=== PATIENT | female | born 2000 | race Caucasian/White ===

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

== ENCOUNTER 2022-04-07 23:21 | Emergency (ER) | payer OTHER ==
[2022-04-07 23:30] VITALS: BP 128/67
--- OUTSIDE RECORDS SUMMARY | 2022-04-07 23:48 | EXTERNAL MEDICAL SUMMARY RPT | Continuity of Care Document ---
:2000 Author Organization [facility] Address [address] [place] [address] Phone Allergies and Intolerances date description facility type (no date) Opioids - Morphine Analogues [facility] (unknown) (no date) doxycycline [facility] (unknown) Encounters No information. Functional Status No information. Immunizations No information. Medications No information. Problems No information. Procedures No information. Results/Labs test date author facility value unit interpret ation Result panel 1 (unknown) (no (unknown) (unknown) (no value) (units (unk nown) date) unknown) (unknown) (no (unknown) (unknown) [place], [place] (units ( unknown) date) [id number] unknown) (unknown) (no (unknown) (unknown) Draft (units (unkno wn) date) unknown) (unknown) (no (unknown) (unknown) [facility] (units ([facility] date[facility]) (unknown) (no (unknown) (unknown) Gynecology Visit (units (unknown) date) unknown) (unknown) (no (unknown) (unknown) rash (units (unkno wn) date) unknown) (unknown) (no (unknown) (unknown) vomitt (units (unkno wn) date) unknown) (unknown) (no (unknown) (unknown) (no value) (units (unk nown) date) unknown) (unknown) (no (unknown) (unknown) 02/24/22 (units (unkno wn) date) unknown) (unknown) (no (unknown) (unknown) [id number] (units (unkno wn) date) unknown) (unknown) (no (unknown) (unknown) Acne (-2016) (units (u nknown) date) unknown) (unknown) (no (unknown) (unknown) Age/Sex: 21 / F (units (unknown) date) Date of Service: unknown) (unknown) (no (unknown) (unknown) Allergies (units (unkn own) date) unknown) (unknown) (no (unknown) (unknown) Anesthesia (units (unk nown) date) unknown) (unknown) (no (unknown) (unknown) Attending Dr: (units ( unknown) date) Sushant Bryant unknown) (unknown) (no (unknown) (unknown) Chlamydia (units (unkn own) date) infection () unknown) (unknown) (no (unknown) (unknown) : 2000 (units (unknown) date) Acct:[id number] unknown) (unknown) (no (unknown) (unknown) Dept at (units (unkno wn) date) . unknown) (unknown) (no (unknown) (unknown) Documented By: (units (unknown) date) Sushant Bryant unknown) 02/24/22 0803 (unknown) (no (unknown) (unknown) Endometriosis (units ( unknown) date) () unknown) (unknown) (no (unknown) (unknown) Heavy menstrual (units (unknown) date) period () unknown) (unknown) (no (unknown) (unknown) Intake (units (unkno wn) date) unknown) (unknown) (no (unknown) (unknown) Intake Note: (units (u nknown) date) unknown) (unknown) (no (unknown) (unknown) Intake performed (units (unknown) date) by: unknown) Ligia Joaquin (unknown) (no (unknown) (unknown) Intake- Clincial (units (unknown) date) Staff unknown) (unknown) (no (unknown) (unknown) Irregular (units (unkn own) date) menstrual cycle unknown) () (unknown) (no (unknown) (unknown) Loc: [facility] (units (unkno wn) date) unknown) (unknown) (no (unknown) (unknown) Lymphangioma (units (u nknown) date) unknown) (unknown) (no (unknown) (unknown) Medical History (units (unknown) date) (Reviewed unknown) 12/30/21 @ 14:51 by Josefina Mathtew MD) (unknown) (no (unknown) (unknown) Opioids - (units (unkn own) date) Morphine unknown) Analogues Allergy (Intermediate, Verified 11/30/21 08:39) (unknown) (no (unknown) (unknown) Ovarian cyst (units (u nknown) date) unknown) (unknown) (no (unknown) (unknown) PFSH (units (unkno wn) date) unknown) (unknown) (no (unknown) (unknown) Painful (units (unkno wn) date) menstrual periods unknown) () (unknown) (no (unknown) (unknown) Patient: (units (unkno wn) date) Ade Matthews unknown) MR#: [id number] (unknown) (no (unknown) (unknown) Reason For Visit (units (unknown) date) unknown) (unknown) (no (unknown) (unknown) S/P ACL (units (unkno wn) date) reconstruction unknown) (06/08/21) (unknown) (no (unknown) (unknown) Signed By: (units (unk nown) date) unknown) (unknown) (no (unknown) (unknown) Smoking Status: (units (unknown) date) Never smoker unknown) (unknown) (no (unknown) (unknown) Surgical History (units (unknown) date) (Updated 12/30/21 unknown) @ 14:51 by Josefina Matthew MD) (unknown) (no (unknown) (unknown) TOA (units (unkno wn) date) (tubo-ovarian unknown) abscess) (06/28/21) (unknown) (no (unknown) (unknown) This note may (units ( unknown) date) have been all or unknown) partially generated using voice recognition (unknown) (no (unknown) (unknown) Tobacco + (units (unkn own) date) Substance Use unknown) (unknown) (no (unknown) (unknown) Tobacco Status (units (unknown) date) unknown) (unknown) (no (unknown) (unknown) Visit Reasons: (units (unknown) date) Ovarian unknown) Cyst/Pelvic Pain (unknown) (no (unknown) (unknown) doxycycline (units (un known) date) Adverse Reaction unknown) (Intermediate, Verified 11/30/21 08:39) (unknown) (no (unknown) (unknown) have occurred. (units (unknown) date) If there are any unknown) questions, please contact the Medical Records (unknown) (no (unknown) (unknown) may occur. (units (unk nown) date) Occasional unknown) wrong-word or 'sound-alike' substitutions may have (unknown) (no (unknown) (unknown) occurred due to (units (unknown) date) the inherent unknown) limitations of voice recognition software. Please (unknown) (no (unknown) (unknown) pt here for (units (un known) date) ovarian unknown) cyst/pelvic pain. had US at [facility] 12/16/21 for abnormal (unknown) (no (unknown) (unknown) read the note (units ( unknown) date) carefully and unknown) recognize, using context, where these substitutions (unknown) (no (unknown) (unknown) software. (units (unkn own) date) Although every unknown) effort is made to edit content, financial solutions advisor errors (unknown) (no (unknown) (unknown) uterine (units (unkno wn) date) bleeding. she is unknown) a previous pt of Dr Matthew Result panel 2 (unknown) (no (unknown) (unknown) (no value) (units (unk nown) date) unknown) (unknown) (no (unknown) (unknown) (no value) (units (unk nown) date) unknown) (unknown) (no (unknown) (unknown) 02/24/22 (units (unkno wn) date) unknown) (unknown) (no (unknown) (unknown) 08:15 (units (unkno wn) date) unknown) (unknown) (no (unknown) (unknown) LASHA [place] (units ( unknown) date) [id number] unknown) (unknown) (no (unknown) (unknown) Draft (units (unkno wn) date) unknown) (unknown) (no (unknown) (unknown) [facility]) (unknown) (no (unknown) (unknown) Gynecology Visit (units (unknown) date) unknown) (unknown) (no (unknown) (unknown) rash (units (unkno wn) date) unknown) (unknown) (no (unknown) (unknown) vomitt (units (unkno wn) date) unknown) (unknown) (no (unknown) (unknown) (no value) (units (unk nown) date) unknown) (unknown) (no (unknown) (unknown) 02/24/22 (units (unkno wn) date) unknown) (unknown) (no (unknown) (unknown) [id number] (units (unkno wn) date) unknown) (unknown) (no (unknown) (unknown) Acne (-2016) (units (u nknown) date) unknown) (unknown) (no (unknown) (unknown) Age/Sex: 21 / F (units (unknown) date) Date of Service: unknown) (unknown) (no (unknown) (unknown) Allergies (units (unkn own) date) unknown) (unknown) (no (unknown) (unknown) Anesthesia (units (unk nown) date) unknown) (unknown) (no (unknown) (unknown) Attending Dr: (units ( unknown) date) Sushant Bryant unknown) (unknown) (no (unknown) (unknown) BMI 26.6 (units (unkno wn) date) unknown) (unknown) (no (unknown) (unknown) BP 98/60 (units (unkno wn) date) unknown) (unknown) (no (unknown) (unknown) Blood Pressure (units (unknown) date) Location Lt unknown) brachial (unknown) (no (unknown) (unknown) Chlamydia (units (unkn own) date) infection () unknown) (unknown) (no (unknown) (unknown) : 2000 (units (unknown) date) Acct:[id number] unknown) (unknown) (no (unknown) (unknown) Dept at (units (unkno wn) date) . unknown) (unknown) (no (unknown) (unknown) Documented By: (units (unknown) date) Sushant Bryant unknownFlip MOORE 02/24/22 0803 (unknown) (no (unknown) (unknown) Endometriosis (units ( unknown) date) () unknown) (unknown) (no (unknown) (unknown) Heavy menstrual (units (unknown) date) period (-2019) unknown) (unknown) (no (unknown) (unknown) Height 5 ft 3.5 (units (unknown) date) in unknown) (unknown) (no (unknown) (unknown) Intake (units (unkno wn) date) unknown) (unknown) (no (unknown) (unknown) Intake Note: (units (u nknown) date) unknown) (unknown) (no (unknown) (unknown) Intake performed (units (unknown) date) by: unknown) Ligia Joaquin (unknown) (no (unknown) (unknown) Intake- Clincial (units (unknown) date) Staff unknown) (unknown) (no (unknown) (unknown) Irregular (units (unkn own) date) menstrual cycle unknown) () (unknown) (no (unknown) (unknown) Last Menstural (units (unknown) date) Cycle + Details unknown) (unknown) (no (unknown) (unknown) Loc: [facility] (units (unkno wn) date) unknown) (unknown) (no (unknown) (unknown) Lymphangioma (units (u nknown) date) unknown) (unknown) (no (unknown) (unknown) Medical History (units (unknown) date) (Reviewed unknown) 12/30/21 @ 14:51 by Josefina Matthew MD) (unknown) (no (unknown) (unknown) Medications (units (un known) date) unknown) (unknown) (no (unknown) (unknown) Opioids - (units (unkn own) date) Morphine unknown) Analogues Allergy (Intermediate, Verified 02/24/22 08:15) (unknown) (no (unknown) (unknown) Other Menstrual (units (unknown) date) Period: Other unknown) (unknown) (no (unknown) (unknown) Ovarian cyst (units (u nknown) date) unknown) (unknown) (no (unknown) (unknown) PFSH (units (unkno wn) date) unknown) (unknown) (no (unknown) (unknown) Painful (units (unkno wn) date) menstrual periods unknown) () (unknown) (no (unknown) (unknown) Patient: (units (unkno wn) date) Ade Matthews unknown) MR#: [id number] (unknown) (no (unknown) (unknown) Position Sitting (units (unknown) date) unknown) (unknown) (no (unknown) (unknown) Reason For Visit (units (unknown) date) unknown) (unknown) (no (unknown) (unknown) S/P ACL (units (unkno wn) date) reconstruction unknown) (-06/08/21) (unknown) (no (unknown) (unknown) Signed By: (units (unk nown) date) unknown) (unknown) (no (unknown) (unknown) Smoking Status: (units (unknown) date) Never smoker unknown) (unknown) (no (unknown) (unknown) Surgical History (units (unknown) date) (Updated 12/30/21 unknown) @ 14:51 by Josefina Matthew MD) (unknown) (no (unknown) (unknown) TOA (units (unkno wn) date) (tubo-ovarian unknown) abscess) (-06/28/21) (unknown) (no (unknown) (unknown) This note may (units ( unknown) date) have been all or unknown) partially generated using voice recognition (unknown) (no (unknown) (unknown) Tobacco + (units (unkn own) date) Substance Use unknown) (unknown) (no (unknown) (unknown) Tobacco Status (units (unknown) date) unknown) (unknown) (no (unknown) (unknown) Visit Reasons: (units (unknown) date) Ovarian unknown) Cyst/Pelvic Pain (unknown) (no (unknown) (unknown) Vitals (units (unkno wn) date) unknown) (unknown) (no (unknown) (unknown) Weight 153 lb (units ( unknown) date) unknown) (unknown) (no (unknown) (unknown) doxycycline (units (un known) date) Adverse Reaction unknown) (Intermediate, Verified 02/24/22 08:15) (unknown) (no (unknown) (unknown) had US and CT (units ( unknown) date) scan. unknown) (unknown) (no (unknown) (unknown) have occurred. (units (unknown) date) If there are any unknown) questions, please contact the Medical Records (unknown) (no (unknown) (unknown) may occur. (units (unk nown) date) Occasional unknown) wrong-word or 'sound-alike' substitutions may have (unknown) (no (unknown) (unknown) occurred due to (units (unknown) date) the inherent unknown) limitations of voice recognition software. Please (unknown) (no (unknown) (unknown) promethazine 25 (units (unknown) date) mg tablet 25 mg unknown) PO Q6H PRN 11/30/21 [History Confirmed 02/24/22] (unknown) (no (unknown) (unknown) pt here for (units (unk nown) date) ovarian unknown) cyst/pelvic pain. was seen in ER at [facility] on Monday and (unknown) (no (unknown) (unknown) read the note (units ( unknown) date) carefully and unknown) recognize, using context, where these substitutions (unknown) (no (unknown) (unknown) software. (units (unkn own) date) Although every unknown) effort is made to edit content, financial solutions advisor errors Result panel 3 (unknown) (no (unknown) (unknown) (no value) (units (unk nown) date) unknown) (unknown) (no (unknown) (unknown) (no value) (units (unk nown) date) unknown) (unknown) (no (unknown) (unknown) 02/24/22 (units (unkno wn) date) unknown) (unknown) (no (unknown) (unknown) 08:15 (units (unkno wn) date) unknown) (unknown) (no (unknown) (unknown) [place] (units ( unknown) date) [id number] unknown) (unknown) (no (unknown) (unknown) Draft (units (unkno wn) date) unknown) (unknown) (no (unknown) (unknown) [facility] ([facility] ([facility]) (unknown) (no (unknown) (unknown) Gynecology Visit (units (unknown) date) unknown) (unknown) (no (unknown) (unknown) rash (units (unkno wn) date) unknown) (unknown) (no (unknown) (unknown) vomitt (units (unkno wn) date) unknown) (unknown) (no (unknown) (unknown) (no value) (units (unk nown) date) unknown) (unknown) (no (unknown) (unknown) 02/24/22 (units (unkno wn) date) unknown) (unknown) (no (unknown) (unknown) [id number] (units (unkno wn) date) unknown) (unknown) (no (unknown) (unknown) Acne (-2016) (units (u nknown) date) unknown) (unknown) (no (unknown) (unknown) Age/Sex: 21 / F (units (unknown) date) Date of Service: unknown) (unknown) (no (unknown) (unknown) Allergies (units (unkn own) date) unknown) (unknown) (no (unknown) (unknown) Anesthesia (units (unk nown) date) unknown) (unknown) (no (unknown) (unknown) Attending Dr: (units ( unknown) date) Sushant Bryant MD unknown) (unknown) (no (unknown) (unknown) BMI 26.6 (units (unkno wn) date) unknown) (unknown) (no (unknown) (unknown) BP 98/60 (units (unkno wn) date) unknown) (unknown) (no (unknown) (unknown) Blood Pressure (units (unknown) date) Location Lt unknown) brachial (unknown) (no (unknown) (unknown) Chief Complaint (units (unknown) date) unknown) (unknown) (no (unknown) (unknown) Chief Complaint: (units (unknown) date) Right lower unknown) quadrant pain (unknown) (no (unknown) (unknown) Chlamydia (units (unkn own) date) infection () unknown) (unknown) (no (unknown) (unknown) : 2000 (units (unknown) date) Acct:[id number] unknown) (unknown) (no (unknown) (unknown) Dept at (units (unkno wn) date) . unknown) (unknown) (no (unknown) (unknown) Details: (units (unkno wn) date) unknown) (unknown) (no (unknown) (unknown) Documented By: (units (unknown) date) Sushant Bryant MD unknown) 02/24/22 0803 (unknown) (no (unknown) (unknown) Endometriosis (units ( unknown) date) () unknown) (unknown) (no (unknown) (unknown) Ade is a (units (unk nown) date) 21-year-old unknown) nulligravida, LMP in November 2021 who presents with an 8 (unknown) (no (unknown) (unknown) HPI (units (unkno wn) date) unknown) (unknown) (no (unknown) (unknown) Heavy menstrual (units (unknown) date) period () unknown) (unknown) (no (unknown) (unknown) Height 5 ft 3.5 (units (unknown) date) in unknown) (unknown) (no (unknown) (unknown) Hospital on (units (un known) date) 02/17/2022 at unknown) which time she underwent abdominal/pelvic CT and (unknown) (no (unknown) (unknown) Intake (units (unkno wn) date) unknown) (unknown) (no (unknown) (unknown) Intake Note: (units (u nknown) date) unknown) (unknown) (no (unknown) (unknown) Intake performed (units (unknown) date) by: Ligia Joaquin unknown) (unknown) (no (unknown) (unknown) Intake- Clincial (units (unknown) date) Staff unknown) (unknown) (no (unknown) (unknown) Irregular (units (unkn own) date) menstrual cycle unknown) () (unknown) (no (unknown) (unknown) Last Menstural (units (unknown) date) Cycle + Details unknown) (unknown) (no (unknown) (unknown) Loc: [facility] (units (unkno wn) date) unknown) (unknown) (no (unknown) (unknown) Lymphangioma (units (u nknown) date) unknown) (unknown) (no (unknown) (unknown) Medical History (units (unknown) date) (Reviewed 12/30/21 unknown) @ 14:51 by Josefina Matthew MD) (unknown) (no (unknown) (unknown) Medications (units (un known) date) unknown) (unknown) (no (unknown) (unknown) Opioids - (units (unkn own) date) Morphine Analogues unknown) Allergy (Intermediate, Verified 02/24/22 08:15) (unknown) (no (unknown) (unknown) Other Menstrual (units (unknown) date) Period: Other unknown) (unknown) (no (unknown) (unknown) Ovarian cyst (units (u nknown) date) unknown) (unknown) (no (unknown) (unknown) PFSH (units (unkno wn) date) unknown) (unknown) (no (unknown) (unknown) Painful menstrual (units (unknown) date) periods () unknown) (unknown) (no (unknown) (unknown) Patient: (units (unkno wn) date) Flash,Ade unknown) MR#: [id number] (unknown) (no (unknown) (unknown) Position Sitting (units (unknown) date) unknown) (unknown) (no (unknown) (unknown) Reason For Visit (units (unknown) date) unknown) (unknown) (no (unknown) (unknown) S/P ACL (units (unkno wn) date) reconstruction unknown) (06/08/21) (unknown) (no (unknown) (unknown) Signed By: (units (unk nown) date) unknown) (unknown) (no (unknown) (unknown) Smoking Status: (units (unknown) date) Never smoker unknown) (unknown) (no (unknown) (unknown) Surgical History (units (unknown) date) (Updated 12/30/21 unknown) @ 14:51 by Josefina Matthew MD) (unknown) (no (unknown) (unknown) TOA (tubo-ovarian (units (unknown) date) abscess) unknown) (06/28/21) (unknown) (no (unknown) (unknown) This note may (units ( unknown) date) have been all or unknown) partially generated using voice recognition (unknown) (no (unknown) (unknown) Tobacco + (units (unkn own) date) Substance Use unknown) (unknown) (no (unknown) (unknown) Tobacco Status (units (unknown) date) unknown) (unknown) (no (unknown) (unknown) Visit Reasons: (units (unknown) date) Ovarian unknown) Cyst/Pelvic Pain (unknown) (no (unknown) (unknown) Vitals (units (unkno wn) date) unknown) (unknown) (no (unknown) (unknown) Weight 153 lb (units ( unknown) date) unknown) (unknown) (no (unknown) (unknown) abscess due to (units (unknown) date) chlamydia treated unknown) as an inpatient at [facility] (unknown) (no (unknown) (unknown) back in June (units (unknown) date) 2020. No records unknown) are available for review of that (unknown) (no (unknown) (unknown) cycles since the (units (unknown) date) TOA or as she had unknown) regular predictable periods up until that (unknown) (no (unknown) (unknown) doxycycline (units (un known) date) Adverse Reaction unknown) (Intermediate, Verified 02/24/22 08:15) (unknown) (no (unknown) (unknown) had US and CT (units ( unknown) date) scan. unknown) (unknown) (no (unknown) (unknown) have occurred. If (units (unknown) date) there are any unknown) questions, please contact the Medical Records (unknown) (no (unknown) (unknown) hemorrhagic cyst (units (unknown) date) within the right unknown) ovary. (unknown) (no (unknown) (unknown) hospitalization (units (unknown) date) but apparently she unknown) was treated with IV antibiotics and (unknown) (no (unknown) (unknown) may occur. (units (unk nown) date) Occasional unknown) wrong-word or 'sound-alike' substitutions may have (unknown) (no (unknown) (unknown) month history of (units (unknown) date) right lower unknown) quadrant pain following right-sided tubo-ovarian (unknown) (no (unknown) (unknown) occurred due to (units (unknown) date) the inherent unknown) limitations of voice recognition software. Please (unknown) (no (unknown) (unknown) pelvic ultrasound (units (unknown) date) which were largely unknown) unremarkable with the exception of a 3 cm (unknown) (no (unknown) (unknown) percutaneous (units (u nknown) date) drainage of the unknown) abscess. Since that time she is had persistent (unknown) (no (unknown) (unknown) promethazine 25 mg (units (unknown) date) tablet 25 mg PO unknown) Q6H PRN 11/30/21 [History Confirmed 02/24/22] (unknown) (no (unknown) (unknown) pt here for (units (unk nown) date) ovarian unknown) cyst/pelvic pain. was seen in ER at [facility] on Monday and (unknown) (no (unknown) (unknown) read the note (units ( unknown) date) carefully and unknown) recognize, using context, where these substitutions (unknown) (no (unknown) (unknown) right lower (units (un known) date) quadrant pain unknown) which is noncyclic and has had only very irregular (unknown) (no (unknown) (unknown) software. (units (unkn own) date) Although every unknown) effort is made to edit content, financial solutions advisor errors (unknown) (no (unknown) (unknown) time. She (units (unkn own) date) presents today in unknown) follow-up from an ER visit at [facility] Result panel 4 (unknown) (no (unknown) (unknown) (no value) (units (unk nown) date) unknown) (unknown) (no (unknown) (unknown) (no value) (units (unk nown) date) unknown) (unknown) (no (unknown) (unknown) 02/24/22 (units (unkno wn) date) unknown) (unknown) (no (unknown) (unknown) 08:15 (units (unkno wn) date) unknown) (unknown) (no (unknown) (unknown) [place], [place] (units ( unknown) date) [id number] unknown) (unknown) (no (unknown) (unknown) Draft (units (unkno wn) date) unknown) (unknown) (no (unknown) (unknown) [facility] (units (unknown) date[facility] unknown) (unknown) (no (unknown) (unknown) Gynecology Visit (units (unknown) date) unknown) (unknown) (no (unknown) (unknown) rash (units (unkno wn) date) unknown) (unknown) (no (unknown) (unknown) vomitt (units (unkno wn) date) unknown) (unknown) (no (unknown) (unknown) (no value) (units (unk nown) date) unknown) (unknown) (no (unknown) (unknown) 02/24/22 (units (unkno wn) date) unknown) (unknown) (no (unknown) (unknown) [id number] (units (unkno wn) date) unknown) (unknown) (no (unknown) (unknown) Acne (-2016) (units (u nknown) date) unknown) (unknown) (no (unknown) (unknown) Age/Sex: 21 / F (units (unknown) date) Date of Service: unknown) (unknown) (no (unknown) (unknown) Allergies (units (unkn own) date) unknown) (unknown) (no (unknown) (unknown) Anesthesia (units (unk nown) date) unknown) (unknown) (no (unknown) (unknown) Attending Dr: (units ( unknown) date) Sushant Bryant MD unknown) (unknown) (no (unknown) (unknown) BMI 26.6 (units (unkno wn) date) unknown) (unknown) (no (unknown) (unknown) BP 98/60 (units (unkno wn) date) unknown) (unknown) (no (unknown) (unknown) Blood Pressure (units (unknown) date) Location Lt unknown) brachial (unknown) (no (unknown) (unknown) Chief Complaint (units (unknown) date) unknown) (unknown) (no (unknown) (unknown) Chief Complaint: (units (unknown) date) Right lower unknown) quadrant pain (unknown) (no (unknown) (unknown) Chlamydia (units (unkn own) date) infection () unknown) (unknown) (no (unknown) (unknown) : 2000 (units (unknown) date) Acct:[id number] unknown) (unknown) (no (unknown) (unknown) Dept at (units (unkno wn) date) . unknown) (unknown) (no (unknown) (unknown) Details: (units (unkno wn) date) unknown) (unknown) (no (unknown) (unknown) Documented By: (units (unknown) date) Sushant Bryant MD unknown) 02/24/22 0803 (unknown) (no (unknown) (unknown) ER visit at (units (un known) date) [facility] unknown) [facility] on 02/17/2022 at which time she underwent (unknown) (no (unknown) (unknown) Endometriosis (units ( unknown) date) () unknown) (unknown) (no (unknown) (unknown) Ade is a (units (unk nown) date) 21-year-old unknown) nulligravida, LMP in November 2021 who presents with an 8 (unknown) (no (unknown) (unknown) HPI (units (unkno wn) date) unknown) (unknown) (no (unknown) (unknown) Heavy menstrual (units (unknown) date) period () unknown) (unknown) (no (unknown) (unknown) Height 5 ft 3.5 (units (unknown) date) in unknown) (unknown) (no (unknown) (unknown) Intake (units (unkno wn) date) unknown) (unknown) (no (unknown) (unknown) Intake Note: (units (u nknown) date) unknown) (unknown) (no (unknown) (unknown) Intake performed (units (unknown) date) by: Ligia Joaquin unknown) (unknown) (no (unknown) (unknown) Intake- Clincial (units (unknown) date) Staff unknown) (unknown) (no (unknown) (unknown) Irregular (units (unkn own) date) menstrual cycle unknown) () (unknown) (no (unknown) (unknown) Last Menstural (units (unknown) date) Cycle + Details unknown) (unknown) (no (unknown) (unknown) Loc: [facility] (units (unkno wn) date) unknown) (unknown) (no (unknown) (unknown) Lymphangioma (units (u nknown) date) unknown) (unknown) (no (unknown) (unknown) Medical History (units (unknown) date) (Reviewed 12/30/21 unknown) @ 14:51 by Josefina Matthew MD) (unknown) (no (unknown) (unknown) Medications (units (un known) date) unknown) (unknown) (no (unknown) (unknown) Opioids - (units (unkn own) date) Morphine Analogues unknown) Allergy (Intermediate, Verified 02/24/22 08:15) (unknown) (no (unknown) (unknown) Other Menstrual (units (unknown) date) Period: Other unknown) (unknown) (no (unknown) (unknown) Ovarian cyst (units (u nknown) date) unknown) (unknown) (no (unknown) (unknown) PFSH (units (unkno wn) date) unknown) (unknown) (no (unknown) (unknown) Painful menstrual (units (unknown) date) periods () unknown) (unknown) (no (unknown) (unknown) Patient: (units (unkno wn) date) Ade aMtthews unknown) MR#: [id number] (unknown) (no (unknown) (unknown) Position Sitting (units (unknown) date) unknown) (unknown) (no (unknown) (unknown) Reason For Visit (units (unknown) date) unknown) (unknown) (no (unknown) (unknown) S/P ACL (units (unkno wn) date) reconstruction unknown) (-06/08/21) (unknown) (no (unknown) (unknown) Signed By: (units (unk nown) date) unknown) (unknown) (no (unknown) (unknown) Smoking Status: (units (unknown) date) Never smoker unknown) (unknown) (no (unknown) (unknown) Surgical History (units (unknown) date) (Updated 12/30/21 unknown) @ 14:51 by Josefina Matthew MD) (unknown) (no (unknown) (unknown) TOA (tubo-ovarian (units (unknown) date) abscess) unknown) (-06/28/21) (unknown) (no (unknown) (unknown) This note may (units ( unknown) date) have been all or unknown) partially generated using voice recognition (unknown) (no (unknown) (unknown) Tobacco + (units (unkn own) date) Substance Use unknown) (unknown) (no (unknown) (unknown) Tobacco Status (units (unknown) date) unknown) (unknown) (no (unknown) (unknown) Visit Reasons: (units (unknown) date) Ovarian unknown) Cyst/Pelvic Pain (unknown) (no (unknown) (unknown) Vitals (units (unkno wn) date) unknown) (unknown) (no (unknown) (unknown) Weight 153 lb (units ( unknown) date) unknown) (unknown) (no (unknown) (unknown) abdominal/pelvic (units (unknown) date) CT and pelvic unknown) ultrasound which were largely unremarkable with (unknown) (no (unknown) (unknown) abscess due to (units (unknown) date) chlamydia treated unknown) as an inpatient at [facility] (unknown) (no (unknown) (unknown) and therefore (units ( unknown) date) discontinue the unknown) oral antibiotics. As a result she only had (unknown) (no (unknown) (unknown) back in June (units (unknown) date) 2020. No records unknown) are available for review of that (unknown) (no (unknown) (unknown) doxycycline (units (un known) date) Adverse Reaction unknown) (Intermediate, Verified 02/24/22 08:15) (unknown) (no (unknown) (unknown) following IV (units (u nknown) date) antibiotics but unknown) apparently had an adverse reaction to Vibramycin (unknown) (no (unknown) (unknown) had US and CT (units ( unknown) date) scan. unknown) (unknown) (no (unknown) (unknown) has had only very (units (unknown) date) irregular cycles unknown) since the TOA or as she had regular (unknown) (no (unknown) (unknown) have occurred. If (units (unknown) date) there are any unknown) questions, please contact the Medical Records (unknown) (no (unknown) (unknown) hospitalization (units (unknown) date) but apparently she unknown) was treated with IV antibiotics and (unknown) (no (unknown) (unknown) intravenous (units (un known) date) antibiotic therapy unknown) and no follow-up oral antibiotic therapy. Since (unknown) (no (unknown) (unknown) may occur. (units (unk nown) date) Occasional unknown) wrong-word or 'sound-alike' substitutions may have (unknown) (no (unknown) (unknown) month history of (units (unknown) date) right lower unknown) quadrant pain following right-sided tubo-ovarian (unknown) (no (unknown) (unknown) occurred due to (units (unknown) date) the inherent unknown) limitations of voice recognition software. Please (unknown) (no (unknown) (unknown) percutaneous (units (u nknown) date) drainage of the unknown) abscess. She was placed on oral antibiotics (unknown) (no (unknown) (unknown) predictable (units (unk nown) date) periods up until unknown) that time. She presents today in follow-up from an (unknown) (no (unknown) (unknown) promethazine 25 mg (units (unknown) date) tablet 25 mg PO unknown) Q6H PRN 11/30/21 [History Confirmed 02/24/22] (unknown) (no (unknown) (unknown) pt here for (units (unk nown) date) ovarian unknown) cyst/pelvic pain. was seen in ER at [facility] on Monday and (unknown) (no (unknown) (unknown) read the note (units ( unknown) date) carefully and unknown) recognize, using context, where these substitutions (unknown) (no (unknown) (unknown) software. (units (unkn own) date) Although every unknown) effort is made to edit content, financial solutions advisor errors (unknown) (no (unknown) (unknown) that time she is (units (unknown) date) had persistent unknown) right lower quadrant pain which is noncyclic and (unknown) (no (unknown) (unknown) the exception of (units (unknown) date) a 3 cm hemorrhagic unknown) cyst within the right ovary. Result panel 5 (unknown) (no (unknown) (unknown) (no value) (units (unk nown) date) unknown) (unknown) (no (unknown) (unknown) Medications: (units (u nknown) date) unknown) (unknown) (no (unknown) (unknown) Status: Acute (units ( unknown) date) unknown) (unknown) (no (unknown) (unknown) (no value) (units (unk nown) date) unknown) (unknown) (no (unknown) (unknown) 02/24/22 (units (unkno wn) date) unknown) (unknown) (no (unknown) (unknown) 08:15 (units (unkno wn) date) unknown) (unknown) (no (unknown) (unknown) [place] [address] (unit s (unknown) date) unknown) (unknown) (no (unknown) (unknown) Draft (units (unkno wn) date) unknown) (unknown) (no (unknown) (unknown) [facility] unknown) (unknown) (no (unknown) (unknown) Gynecology Visit (units (unknown) date) unknown) (unknown) (no (unknown) (unknown) rash (units (unkno wn) date) unknown) (unknown) (no (unknown) (unknown) vomitt (units (unkno wn) date) unknown) (unknown) (no (unknown) (unknown) (no value) (units (unk nown) date) unknown) (unknown) (no (unknown) (unknown) (1) Chronic right (units (unknown) date) lower quadrant pain: unknown) (unknown) (no (unknown) (unknown) (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) (unknown) (no (unknown) (unknown) (3) Irregular (units ( unknown) date) menstrual cycle: unknown) (unknown) (no (unknown) (unknown) 02/24/22 (units (unkno wn) date) unknown) (unknown) (no (unknown) (unknown) [id number] (units (unkno wn) date) unknown) (unknown) (no (unknown) (unknown) Acne (-2016) (units (u nknown) date) unknown) (unknown) (no (unknown) (unknown) Affect: normal (units (unknown) date) affect unknown) (unknown) (no (unknown) (unknown) Age/Sex: 21 / F (units (unknown) date) Date of Service: unknown) (unknown) (no (unknown) (unknown) Allergies (units (unkn own) date) unknown) (unknown) (no (unknown) (unknown) Anesthesia (units (unk nown) date) unknown) (unknown) (no (unknown) (unknown) Appearance: grossly (unit s (unknown) date) normal unknown) (unknown) (no (unknown) (unknown) Assessment + Plan (units (unknown) date) unknown) (unknown) (no (unknown) (unknown) Attending Dr: (units ( unknown) date) Sushant Bryant MD unknown) (unknown) (no (unknown) (unknown) Attitude: (units (unkn own) date) cooperative unknown) (unknown) (no (unknown) (unknown) BMI 26.6 (units (unkno wn) date) unknown) (unknown) (no (unknown) (unknown) BP 98/60 (units (unkno wn) date) unknown) (unknown) (no (unknown) (unknown) Bimanual Exam- (units (unknown) date) Adnexa, other: no unknown) masses, normal, tender (Marked, right sided), (unknown) (no (unknown) (unknown) Bimanual Exam- (units (unknown) date) Vagina + Uterus: unknown) uterine size normal, uterine mobility normal, (unknown) (no (unknown) (unknown) Blood Pressure (units (unknown) date) Location Lt brachial unknown) (unknown) (no (unknown) (unknown) Chief Complaint (units (unknown) date) unknown) (unknown) (no (unknown) (unknown) Chief Complaint: (units (unknown) date) Right lower quadrant unknown) pain (unknown) (no (unknown) (unknown) Chlamydia infection (unit s (unknown) date) () unknown) (unknown) (no (unknown) (unknown) Confirmed 02/24/22] (unit s (unknown) date) unknown) (unknown) (no (unknown) (unknown) Conjunctivae: (units ( unknown) date) conjunctivae normal unknown) (unknown) (no (unknown) (unknown) Const (units (unkno wn) date) unknown) (unknown) (no (unknown) (unknown) : 2000 (units (unknown) date) Acct:[id number] unknown) (unknown) (no (unknown) (unknown) Dept at (units (unkno wn) date) . unknown) (unknown) (no (unknown) (unknown) Details: (units (unkno wn) date) unknown) (unknown) (no (unknown) (unknown) Documented By: (units (unknown) date) Sushant Bryant MD unknown) 02/24/22 0803 (unknown) (no (unknown) (unknown) EOM: EOM intact (units (unknown) date) bilaterally unknown) (unknown) (no (unknown) (unknown) ER visit at [facility] (unit s (unknown) date) [facility] on unknown) 02/17/2022 at which time she underwent (unknown) (no (unknown) (unknown) Ears: hearing (units ( unknown) date) grossly normal unknown) bilaterally (unknown) (no (unknown) (unknown) Effort + (units (unkno wn) date) Inspection: normal unknown) respiratory effort and able to speak in complete (unknown) (no (unknown) (unknown) Endometriosis (units ( unknown) date) () unknown) (unknown) (no (unknown) (unknown) Exam (units (unkno wn) date) unknown) (unknown) (no (unknown) (unknown) External Female (units (unknown) date) Exam: normal unknown) external appearance and normal appearance of the (unknown) (no (unknown) (unknown) Eyes (units (unkno wn) date) unknown) (unknown) (no (unknown) (unknown) Face and sinus: (units (unknown) date) face symmetric unknown) (unknown) (no (unknown) (unknown) GI (units (unkno wn) date) unknown) (unknown) (no (unknown) (unknown) (units (unkno wn) date) unknown) (unknown) (no (unknown) (unknown) General: appearance (unit s (unknown) date) normal, both eyes unknown) and all related structures (unknown) (no (unknown) (unknown) General: (units (unkno wn) date) cooperative, unknown) comfortable and no acute distress (unknown) (no (unknown) (unknown) General: deferred (units (unknown) date) unknown) (unknown) (no (unknown) (unknown) Ade is a (units (unk nown) date) 21-year-old unknown) nulligravida, LMP in November 2021 who presents with an 8 (unknown) (no (unknown) (unknown) HENMT (units (unkno wn) date) unknown) (unknown) (no (unknown) (unknown) HPI (units (unkno wn) date) unknown) (unknown) (no (unknown) (unknown) Head: normal to (units (unknown) date) inspection, unknown) normocephalic and atraumatic (unknown) (no (unknown) (unknown) Heavy menstrual (units (unknown) date) period () unknown) (unknown) (no (unknown) (unknown) Height 5 ft 3.5 in (unit s (unknown) date) unknown) (unknown) (no (unknown) (unknown) Inspection: normal (units (unknown) date) to inspection unknown) (unknown) (no (unknown) (unknown) Intake (units (unkno wn) date) unknown) (unknown) (no (unknown) (unknown) Intake Note: (units (u nknown) date) unknown) (unknown) (no (unknown) (unknown) Intake performed (units (unknown) date) by: Ligia Joaquin unknown) (unknown) (no (unknown) (unknown) Intake- Clincial (units (unknown) date) Staff unknown) (unknown) (no (unknown) (unknown) Irregular menstrual (unit s (unknown) date) cycle () unknown) (unknown) (no (unknown) (unknown) Judgment: judgment (units (unknown) date) good unknown) (unknown) (no (unknown) (unknown) Last Menstural (units (unknown) date) Cycle + Details unknown) (unknown) (no (unknown) (unknown) Loc: [facility] (units (unkno wn) date) unknown) (unknown) (no (unknown) (unknown) Lymphangioma (units (u nknown) date) unknown) (unknown) (no (unknown) (unknown) Medical History (units (unknown) date) (Updated 02/24/22 @ unknown) 09:05 by Sushant Bryant MD) (unknown) (no (unknown) (unknown) Medications (units (un known) date) unknown) (unknown) (no (unknown) (unknown) Mental Status: (units (unknown) date) mental status unknown) grossly normal (unknown) (no (unknown) (unknown) Mood: congruent (units (unknown) date) mood unknown) (unknown) (no (unknown) (unknown) Neck (units (unkno wn) date) unknown) (unknown) (no (unknown) (unknown) Neck: normal visual (unit s (unknown) date) inspection unknown) (unknown) (no (unknown) (unknown) New (units (unkno wn) date) unknown) (unknown) (no (unknown) (unknown) No cul-de-sac (units ( unknown) date) fullness and No unknown) cul-de-sac tenderness (unknown) (no (unknown) (unknown) Nutritional (units (un known) date) Appearance: average unknown) body habitus (unknown) (no (unknown) (unknown) Opioids - Morphine (units (unknown) date) Analogues Allergy unknown) (Intermediate, Verified 02/24/22 08:15) (unknown) (no (unknown) (unknown) Orientation: alert (units (unknown) date) and oriented x3 unknown) (unknown) (no (unknown) (unknown) Other Menstrual (units (unknown) date) Period: Other unknown) (unknown) (no (unknown) (unknown) Ovarian cyst (units (u nknown) date) unknown) (unknown) (no (unknown) (unknown) PFSH (units (unkno wn) date) unknown) (unknown) (no (unknown) (unknown) Painful menstrual (units (unknown) date) periods (-2020) unknown) (unknown) (no (unknown) (unknown) Palpation: soft, no (unit s (unknown) date) hepatosplenomegaly unknown) and tender (Moderate direct tenderness) (unknown) (no (unknown) (unknown) Patient: (units (unkno wn) date) [place],Ade MR#: unknown) [id number] (unknown) (no (unknown) (unknown) Pelvic Support: (units (unknown) date) normal unknown) (unknown) (no (unknown) (unknown) Position Sitting (units (unknown) date) unknown) (unknown) (no (unknown) (unknown) Problem-specific (units (unknown) date) ROS positives unknown) included with the HPI (unknown) (no (unknown) (unknown) Psych (units (unkno wn) date) unknown) (unknown) (no (unknown) (unknown) ROS (units (unkno wn) date) unknown) (unknown) (no (unknown) (unknown) ROS Narrative (units ( unknown) date) unknown) (unknown) (no (unknown) (unknown) ROS Narrative: (units (unknown) date) unknown) (unknown) (no (unknown) (unknown) Reason For Visit (units (unknown) date) unknown) (unknown) (no (unknown) (unknown) Recto-Vaginal: no (units (unknown) date) cul-de-sac fullness unknown) and no cul-de-sac tenderness (unknown) (no (unknown) (unknown) Resp (units (unkno wn) date) unknown) (unknown) (no (unknown) (unknown) S/P ACL (units (o wn) date) reconstruction unknown) (-06/08/21) (unknown) (no (unknown) (unknown) Sclera: sclerae (units (unknown) date) normal unknown) (unknown) (no (unknown) (unknown) Signed By: (units (n) date) unknown) (unknown) (no (unknown) (unknown) Smoking Status: (units (unknown) date) Never smoker unknown) (unknown) (no (unknown) (unknown) Speculum Exam - (units (unknown) date) Cervix: normal unknown) appearance of the cervix and tender (unknown) (no (unknown) (unknown) Speculum Exam - (units (unknown) date) Vagina: normal unknown) appearance of the vagina and abnormal vaginal (unknown) (no (unknown) (unknown) Speech and (units (unk nown) date) Movement: speech and unknown) movement normal (unknown) (no (unknown) (unknown) Surgical History (units (unknown) date) (Updated 12/30/21 @ unknown) 14:51 by Josefina Matthew MD) (unknown) (no (unknown) (unknown) TOA (tubo-ovarian (units (unknown) date) abscess) (-06/28/21) unknown) (unknown) (no (unknown) (unknown) This note may have (units (unknown) date) been all or unknown) partially generated using voice recognition (unknown) (no (unknown) (unknown) Thought Content: (units (unknown) date) normal unknown) (unknown) (no (unknown) (unknown) Thought Process: (units (unknown) date) normal unknown) (unknown) (no (unknown) (unknown) Tobacco + Substance (unit s (unknown) date) Use unknown) (unknown) (no (unknown) (unknown) Tobacco Status (units (unknown) date) unknown) (unknown) (no (unknown) (unknown) Urethra: normal (units (unknown) date) appearance of the unknown) urethra (unknown) (no (unknown) (unknown) Visit Reasons: (units (unknown) date) Ovarian Cyst/Pelvic unknown) Pain (unknown) (no (unknown) (unknown) Vitals (units (unkno wn) date) unknown) (unknown) (no (unknown) (unknown) Weight 153 lb (units ( unknown) date) unknown) (unknown) (no (unknown) (unknown) abdominal/pelvic CT (unit s (unknown) date) and pelvic unknown) ultrasound which were largely unremarkable with (unknown) (no (unknown) (unknown) abscess due to (units (unknown) date) chlamydia treated as unknown) an inpatient at [facility] (unknown) (no (unknown) (unknown) and therefore (units ( unknown) date) discontinue the oral unknown) antibiotics. As a result she only had (unknown) (no (unknown) (unknown) back in June (units (unknown) date) 2020. No records are unknown) available for review of that (unknown) (no (unknown) (unknown) discharge (C/W BV) (units (unknown) date) white unknown) (unknown) (no (unknown) (unknown) doxycycline Adverse (unit s (unknown) date) Reaction unknown) (Intermediate, Verified 02/24/22 08:15) (unknown) (no (unknown) (unknown) following IV (units (u nknown) date) antibiotics but unknown) apparently had an adverse reaction to Vibramycin (unknown) (no (unknown) (unknown) had US and CT scan. (unit s (unknown) date) unknown) (unknown) (no (unknown) (unknown) has had only very (units (unknown) date) irregular cycles unknown) since the TOA or as she had regular (unknown) (no (unknown) (unknown) have occurred. If (units (unknown) date) there are any unknown) questions, please contact the Medical Records (unknown) (no (unknown) (unknown) hospitalization but (unit s (unknown) date) apparently she was unknown) treated with IV antibiotics and (unknown) (no (unknown) (unknown) in the RLQ; with no (unit s (unknown) date) rebound tenderness unknown) (unknown) (no (unknown) (unknown) intravenous (units (un known) date) antibiotic therapy unknown) and no follow-up oral antibiotic therapy. Since (unknown) (no (unknown) (unknown) levofloxacin 500 mg (unit s (unknown) date) PO DAILY 14 days 14 unknown) tabs 0RF (unknown) (no (unknown) (unknown) levofloxacin 500 mg (unit s (unknown) date) tablet 500 mg PO unknown) DAILY 14 days #14 tabs 02/24/22 [Rx (unknown) (no (unknown) (unknown) may occur. (units (unk nown) date) Occasional unknown) wrong-word or 'sound-alike' substitutions may have (unknown) (no (unknown) (unknown) metronidazole 500 (units (unknown) date) mg PO BID 14 days 28 unknown) tabs 0RF (unknown) (no (unknown) (unknown) metronidazole 500 (units (unknown) date) mg tablet 500 mg PO unknown) BID 14 days #28 tabs 02/24/22 [Rx (unknown) (no (unknown) (unknown) month history of (units (unknown) date) right lower quadrant unknown) pain following right-sided tubo-ovarian (unknown) (no (unknown) (unknown) occurred due to the (unit s (unknown) date) inherent limitations unknown) of voice recognition software. Please (unknown) (no (unknown) (unknown) percutaneous (units (u nknown) date) drainage of the unknown) abscess. She was placed on oral antibiotics (unknown) (no (unknown) (unknown) predictable periods (units (unknown) date) up until that time. unknown) She presents today in follow-up from an (unknown) (no (unknown) (unknown) promethazine 25 mg (units (unknown) date) tablet 25 mg PO Q6H unknown) PRN 11/30/21 [History Confirmed 02/24/22] (unknown) (no (unknown) (unknown) pt here for ovarian (units (unknown) date) cyst/pelvic pain. unknown) was seen in ER at [facility] on Monday and (unknown) (no (unknown) (unknown) read the note (units ( unknown) date) carefully and unknown) recognize, using context, where these substitutions (unknown) (no (unknown) (unknown) sentences (units (unkn own) date) unknown) (unknown) (no (unknown) (unknown) software. Although (units (unknown) date) every effort is made unknown) to edit content, financial solutions advisor errors (unknown) (no (unknown) (unknown) tender, cervical (units (unknown) date) motion tenderness unknown) and tender (Mild, diffuse) (unknown) (no (unknown) (unknown) that time she is had (unit s (unknown) date) persistent right unknown) lower quadrant pain which is noncyclic and (unknown) (no (unknown) (unknown) the exception of a (units (unknown) date) 3 cm hemorrhagic unknown) cyst within the right ovary. (unknown) (no (unknown) (unknown) urethra (units (unkno wn) date) unknown) Result panel 6 (unknown) (no (unknown) (unknown) (no value) (units (unk nown) date) unknown) (unknown) (no (unknown) (unknown) Medications: (units (u nknown) date) unknown) (unknown) (no (unknown) (unknown) Status: Acute (units ( unknown) date) unknown) (unknown) (no (unknown) (unknown) (no value) (units (unk nown) date) unknown) (unknown) (no (unknown) (unknown) 02/24/22 (units (unkno wn) date) unknown) (unknown) (no (unknown) (unknown) 02/24/22 0914 (units ( unknown) date) unknown) (unknown) (no (unknown) (unknown) 08:15 (units (unkno wn) date) unknown) (unknown) (no (unknown) (unknown) LASHA Davison [id number] (unit s (unknown) date) unknown) (unknown) (no (unknown) (unknown) [facility] unknown) (unknown) (no (unknown) (unknown) Gynecology Visit (units (unknown) date) unknown) (unknown) (no (unknown) (unknown) Signed (units (unkno wn) date) unknown) (unknown) (no (unknown) (unknown) rash (units (unkno wn) date) unknown) (unknown) (no (unknown) (unknown) vomitt (units (unkno wn) date) unknown) (unknown) (no (unknown) (unknown) (no value) (units (unk nown) date) unknown) (unknown) (no (unknown) (unknown) (1) Chronic right (units (unknown) date) lower quadrant pain: unknown) (unknown) (no (unknown) (unknown) (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) (unknown) (no (unknown) (unknown) (3) Irregular (units ( unknown) date) menstrual cycle: unknown) (unknown) (no (unknown) (unknown) (4) Bacterial (units ( unknown) date) vaginosis: unknown) (unknown) (no (unknown) (unknown) 02/24/22 (units (unkno wn) date) unknown) (unknown) (no (unknown) (unknown) 02/24/22] (units (unkn own) date) unknown) (unknown) (no (unknown) (unknown) 3 weeks for (units (un known) date) re-evaluation unknown) insofar as her response to therapy. If her symptoms (unknown) (no (unknown) (unknown) [id number] (units (unkno wn) date) unknown) (unknown) (no (unknown) (unknown) 500 mg p.o. b.i.d. (units (unknown) date) times 14 days. In unknown) addition will prescribe oxycodone 5 mg (unknown) (no (unknown) (unknown) Acne (-2015) (units (u nknown) date) unknown) (unknown) (no (unknown) (unknown) Affect: normal (units (unknown) date) affect unknown) (unknown) (no (unknown) (unknown) Age/Sex: 21 / F (units (unknown) date) Date of Service: unknown) (unknown) (no (unknown) (unknown) Allergies (units (unkn own) date) unknown) (unknown) (no (unknown) (unknown) Anesthesia (units (unk nown) date) unknown) (unknown) (no (unknown) (unknown) Appearance: grossly (unit s (unknown) date) normal unknown) (unknown) (no (unknown) (unknown) Assessment + Plan (units (unknown) date) unknown) (unknown) (no (unknown) (unknown) Attending Dr: (units ( unknown) date) Sushant Bryant MD unknown) (unknown) (no (unknown) (unknown) Attitude: (units (unkn own) date) cooperative unknown) (unknown) (no (unknown) (unknown) BMI 26.6 (units (unkno wn) date) unknown) (unknown) (no (unknown) (unknown) BP 98/60 (units (unkno wn) date) unknown) (unknown) (no (unknown) (unknown) Bimanual Exam- (units (unknown) date) Adnexa, other: no unknown) masses, normal, tender (Marked, right sided), (unknown) (no (unknown) (unknown) Bimanual Exam- (units (unknown) date) Vagina + Uterus: unknown) uterine size normal, uterine mobility normal, (unknown) (no (unknown) (unknown) Blood Pressure (units (unknown) date) Location Lt brachial unknown) (unknown) (no (unknown) (unknown) Chief Complaint (units (unknown) date) unknown) (unknown) (no (unknown) (unknown) Chief Complaint: (units (unknown) date) Right lower quadrant unknown) pain (unknown) (no (unknown) (unknown) Chlamydia infection (unit s (unknown) date) () unknown) (unknown) (no (unknown) (unknown) Confirmed 02/24/22] (unit s (unknown) date) unknown) (unknown) (no (unknown) (unknown) Conjunctivae: (units ( unknown) date) conjunctivae normal unknown) (unknown) (no (unknown) (unknown) Const (units (unkno wn) date) unknown) (unknown) (no (unknown) (unknown) Counseling and (units (unknown) date) educating the unknown) patient/family/careg iver: 10 (unknown) (no (unknown) (unknown) : 2000 (units (unknown) date) Acct:[id number] unknown) (unknown) (no (unknown) (unknown) Dept at (units (unkno wn) date) . unknown) (unknown) (no (unknown) (unknown) Details: (units (unkno wn) date) unknown) (unknown) (no (unknown) (unknown) Documented By: (units (unknown) date) Sushant Bryant MD unknown) 02/24/22 0803 (unknown) (no (unknown) (unknown) Documenting (units (un known) date) clinical information unknown) in EHR/Medical record: 10 (unknown) (no (unknown) (unknown) EOM: EOM intact (units (unknown) date) bilaterally unknown) (unknown) (no (unknown) (unknown) ER visit at [facility] (unit s (unknown) date) [facility] on unknown) 02/17/2022 at which time she underwent (unknown) (no (unknown) (unknown) Ears: hearing (units ( unknown) date) grossly normal unknown) bilaterally (unknown) (no (unknown) (unknown) Effort + (units (unkno wn) date) Inspection: normal unknown) respiratory effort and able to speak in complete (unknown) (no (unknown) (unknown) Endometriosis (units ( unknown) date) () unknown) (unknown) (no (unknown) (unknown) Exam (units (unkno wn) date) unknown) (unknown) (no (unknown) (unknown) External Female (units (unknown) date) Exam: normal unknown) external appearance and normal appearance of the (unknown) (no (unknown) (unknown) Eyes (units (unkno wn) date) unknown) (unknown) (no (unknown) (unknown) Face and sinus: (units (unknown) date) face symmetric unknown) (unknown) (no (unknown) (unknown) GI (units (unkno wn) date) unknown) (unknown) (no (unknown) (unknown) (units (unkno wn) date) unknown) (unknown) (no (unknown) (unknown) General: appearance (unit s (unknown) date) normal, both eyes unknown) and all related structures (unknown) (no (unknown) (unknown) General: (units (unkno wn) date) cooperative, unknown) comfortable and no acute distress (unknown) (no (unknown) (unknown) General: deferred (units (unknown) date) unknown) (unknown) (no (unknown) (unknown) Ade is a (units (unk nown) date) 21-year-old unknown) nulligravida, LMP in November 2021 who presents with an 8 (unknown) (no (unknown) (unknown) HENMT (units (unkno wn) date) unknown) (unknown) (no (unknown) (unknown) HPI (units (unkno wn) date) unknown) (unknown) (no (unknown) (unknown) Head: normal to (units (unknown) date) inspection, unknown) normocephalic and atraumatic (unknown) (no (unknown) (unknown) Heavy menstrual (units (unknown) date) period (-2018) unknown) (unknown) (no (unknown) (unknown) Height 5 ft 3.5 in (units (unknown) date) unknown) (unknown) (no (unknown) (unknown) Inspection: normal (units (unknown) date) to inspection unknown) (unknown) (no (unknown) (unknown) Intake (units (unkno wn) date) unknown) (unknown) (no (unknown) (unknown) Intake Note: (units (u nknown) date) unknown) (unknown) (no (unknown) (unknown) Intake performed (units (unknown) date) by: Ligia Joaquin unknown) (unknown) (no (unknown) (unknown) Intake- Clincial (units (unknown) date) Staff unknown) (unknown) (no (unknown) (unknown) Irregular menstrual (unit s (unknown) date) cycle () unknown) (unknown) (no (unknown) (unknown) Judgment: judgment (units (unknown) date) good unknown) (unknown) (no (unknown) (unknown) Last Menstural (units (unknown) date) Cycle + Details unknown) (unknown) (no (unknown) (unknown) Loc: [facility] (units (unkno wn) date) unknown) (unknown) (no (unknown) (unknown) Lymphangioma (units (u nknown) date) unknown) (unknown) (no (unknown) (unknown) Medical History (units (unknown) date) (Updated 02/24/22 @ unknown) 09:12 by Sushant Bryant MD) (unknown) (no (unknown) (unknown) Medications (units (un known) date) unknown) (unknown) (no (unknown) (unknown) Mental Status: (units (unknown) date) mental status unknown) grossly normal (unknown) (no (unknown) (unknown) Mood: congruent (units (unknown) date) mood unknown) (unknown) (no (unknown) (unknown) Neck (units (unkno wn) date) unknown) (unknown) (no (unknown) (unknown) Neck: normal visual (unit s (unknown) date) inspection unknown) (unknown) (no (unknown) (unknown) New (units (unkno wn) date) unknown) (unknown) (no (unknown) (unknown) No cul-de-sac (units ( unknown) date) fullness and No unknown) cul-de-sac tenderness (unknown) (no (unknown) (unknown) Nutritional (units (un known) date) Appearance: average unknown) body habitus (unknown) (no (unknown) (unknown) Obtaining and/or (units (unknown) date) reviewing separately unknown) obtained history: 5 (unknown) (no (unknown) (unknown) Opioids - Morphine (units (unknown) date) Analogues Allergy unknown) (Intermediate, Verified 02/24/22 08:15) (unknown) (no (unknown) (unknown) Ordering (units (unkno wn) date) medications, tests, unknown) or procedures: 5 (unknown) (no (unknown) (unknown) Orientation: alert (units (unknown) date) and oriented x3 unknown) (unknown) (no (unknown) (unknown) Other Menstrual (units (unknown) date) Period: Other unknown) (unknown) (no (unknown) (unknown) Ovarian cyst (units (u nknown) date) unknown) (unknown) (no (unknown) (unknown) PFSH (units (unkno wn) date) unknown) (unknown) (no (unknown) (unknown) Painful menstrual (units (unknown) date) periods () unknown) (unknown) (no (unknown) (unknown) Palpation: soft, no (unit s (unknown) date) hepatosplenomegaly unknown) and tender (Moderate direct tenderness) (unknown) (no (unknown) (unknown) Patient's clinical (units (unknown) date) symptoms and unknown) physical findings are most consistent with (unknown) (no (unknown) (unknown) Patient: (units (unkno wn) date) Ade Matthews MR#: unknown) [id number] (unknown) (no (unknown) (unknown) Pelvic Support: (units (unknown) date) normal unknown) (unknown) (no (unknown) (unknown) Performing a (units (u nknown) date) medically unknown) appropriate exam and/or evaluation: 5 (unknown) (no (unknown) (unknown) Plan (units (unkno wn) date) unknown) (unknown) (no (unknown) (unknown) Position Sitting (units (unknown) date) unknown) (unknown) (no (unknown) (unknown) Preparing to see (units (unknown) date) the patient, i.e., unknown) chart review, review of tests: 5 (unknown) (no (unknown) (unknown) Problem-specific (units (unknown) date) ROS positives unknown) included with the HPI (unknown) (no (unknown) (unknown) Psych (units (unkno wn) date) unknown) (unknown) (no (unknown) (unknown) ROS (units (unkno wn) date) unknown) (unknown) (no (unknown) (unknown) ROS Narrative (units ( unknown) date) unknown) (unknown) (no (unknown) (unknown) ROS Narrative: (units (unknown) date) unknown) (unknown) (no (unknown) (unknown) Reason For Visit (units (unknown) date) unknown) (unknown) (no (unknown) (unknown) Recto-Vaginal: no (units (unknown) date) cul-de-sac fullness unknown) and no cul-de-sac tenderness (unknown) (no (unknown) (unknown) Resp (units (unkno wn) date) unknown) (unknown) (no (unknown) (unknown) S/P ACL (units (unkno wn) date) reconstruction unknown) (-06/08/21) (unknown) (no (unknown) (unknown) Sclera: sclerae (units (unknown) date) normal unknown) (unknown) (no (unknown) (unknown) Signed By: (units (unk nown) date) <Electronically unknown) signed by Sushant Bryant MD> (unknown) (no (unknown) (unknown) Smoking Status: (units (unknown) date) Never smoker unknown) (unknown) (no (unknown) (unknown) Speculum Exam - (units (unknown) date) Cervix: normal unknown) appearance of the cervix and tender (unknown) (no (unknown) (unknown) Speculum Exam - (units (unknown) date) Vagina: normal unknown) appearance of the vagina and abnormal vaginal (unknown) (no (unknown) (unknown) Speech and (units (unk nown) date) Movement: speech and unknown) movement normal (unknown) (no (unknown) (unknown) Surgical History (units (unknown) date) (Updated 12/30/21 @ unknown) 14:51 by Josefina Matthew MD) (unknown) (no (unknown) (unknown) TOA (tubo-ovarian (units (unknown) date) abscess) (-06/28/21) unknown) (unknown) (no (unknown) (unknown) This note may have (units (unknown) date) been all or unknown) partially generated using voice recognition (unknown) (no (unknown) (unknown) Thought Content: (units (unknown) date) normal unknown) (unknown) (no (unknown) (unknown) Thought Process: (units (unknown) date) normal unknown) (unknown) (no (unknown) (unknown) Time Coding Minutes (unit s (unknown) date) Spent: (must be on unknown) same date of service/appointment) (unknown) (no (unknown) (unknown) Time Spent (units (unk nown) date) unknown) (unknown) (no (unknown) (unknown) Tobacco + Substance (unit s (unknown) date) Use unknown) (unknown) (no (unknown) (unknown) Tobacco Status (units (unknown) date) unknown) (unknown) (no (unknown) (unknown) Total Time: 40 (units (unknown) date) unknown) (unknown) (no (unknown) (unknown) Urethra: normal (units (unknown) date) appearance of the unknown) urethra (unknown) (no (unknown) (unknown) Visit Reasons: (units (unknown) date) Ovarian Cyst/Pelvic unknown) Pain (unknown) (no (unknown) (unknown) Vitals (units (unkno wn) date) unknown) (unknown) (no (unknown) (unknown) Weight 153 lb (units ( unknown) date) unknown) (unknown) (no (unknown) (unknown) Will initiate (units ( unknown) date) levofloxacin 500 mg unknown) daily times 14 days along with metronidazole (unknown) (no (unknown) (unknown) abdominal/pelvic CT (unit s (unknown) date) and pelvic unknown) ultrasound which were largely unremarkable with (unknown) (no (unknown) (unknown) abscess due to (units (unknown) date) chlamydia treated as unknown) an inpatient at [facility] (unknown) (no (unknown) (unknown) and therefore (units ( unknown) date) discontinue the oral unknown) antibiotics. As a result she only had (unknown) (no (unknown) (unknown) ay occur. (units (unkn own) date) Occasional unknown) wrong-word or 'sound-alike' substitutions may have (unknown) (no (unknown) (unknown) back in June (units (unknown) date) 2020. 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 (unit s (unknown) date) unknown) (unknown) (no (unknown) (unknown) has had only very (units (unknown) date) irregular cycles unknown) since the TOA or as she had regular (unknown) (no (unknown) (unknown) have occurred. If (units (unknown) date) there are any unknown) questions, please contact the Medical Records (unknown) (no (unknown) (unknown) hospitalization but (unit s (unknown) date) apparently she was unknown) treated with IV antibiotics and (unknown) (no (unknown) (unknown) improve (units (unkno wn) date) sufficiently, no unknown) further therapy will be needed but response is (unknown) (no (unknown) (unknown) in the RLQ; with no (unit s (unknown) date) rebound tenderness unknown) (unknown) (no (unknown) (unknown) intravenous (units (un known) date) antibiotic therapy unknown) and no follow-up oral antibiotic therapy. Since (unknown) (no (unknown) (unknown) lead to near (units (u nknown) date) immediate unknown) discontinuation of oral antibiotics but she was not (unknown) (no (unknown) (unknown) levofloxacin 500 mg (unit s (unknown) date) PO DAILY 14 days 14 unknown) tabs 0RF (unknown) (no (unknown) (unknown) levofloxacin 500 mg (unit s (unknown) date) tablet 500 mg PO unknown) DAILY 14 days #14 tabs 02/24/22 [Rx (unknown) (no (unknown) (unknown) metronidazole 500 (units (unknown) date) mg PO BID 14 days 28 unknown) tabs 0RF (unknown) (no (unknown) (unknown) metronidazole 500 (units (unknown) date) mg tablet 500 mg PO unknown) BID 14 days #28 tabs 02/24/22 [Rx (unknown) (no (unknown) (unknown) month history of (units (unknown) date) right lower quadrant unknown) pain following right-sided tubo-ovarian (unknown) (no (unknown) (unknown) occurred due to the (unit s (unknown) date) inherent limitations unknown) of voice recognition software. Please (unknown) (no (unknown) (unknown) oxycodone 5 mg PO (units (unknown) date) Q6H PRN 10 tabs 0RF unknown) pain (unknown) (no (unknown) (unknown) oxycodone 5 mg (units (unknown) date) tablet 5 mg PO Q6H unknown) PRN pain #10 tabs 02/24/22 [Rx Confirmed (unknown) (no (unknown) (unknown) percutaneous (units (u nknown) date) drainage of the unknown) abscess. She was placed on oral antibiotics (unknown) (no (unknown) (unknown) predictable periods (units (unknown) date) up until that time. unknown) She presents today in follow-up from an (unknown) (no (unknown) (unknown) promethazine 25 mg (units (unknown) date) tablet 25 mg PO Q6H unknown) PRN 11/30/21 [History Confirmed 02/24/22] (unknown) (no (unknown) (unknown) pt here for ovarian (units (unknown) date) cyst/pelvic pain. unknown) was seen in ER at [facility] on Monday and (unknown) (no (unknown) (unknown) read the note (units ( unknown) date) carefully and unknown) recognize, using context, where these substitutions (unknown) (no (unknown) (unknown) sentences (units (unkn own) date) unknown) (unknown) (no (unknown) (unknown) software. Although (units (unknown) date) every effort is made unknown) to edit content, financial solutions advisor errors m (unknown) (no (unknown) (unknown) suboptimal, (units (un known) date) laparoscopy with unknown) possible right salpingo-oophorectom y may be (unknown) (no (unknown) (unknown) switch to a (units (un known) date) different regimen unknown) which she could tolerate. (unknown) (no (unknown) (unknown) tabs every 6 hours (units (unknown) date) as needed for unknown) breakthrough pain and plan to follow her up in (unknown) (no (unknown) (unknown) tender, cervical (units (unknown) date) motion tenderness unknown) and tender (Mild, diffuse) (unknown) (no (unknown) (unknown) that time she is had (unit s (unknown) date) persistent right unknown) lower quadrant pain which is noncyclic and (unknown) (no (unknown) (unknown) the exception of a (units (unknown) date) 3 cm hemorrhagic unknown) cyst within the right ovary. (unknown) (no (unknown) (unknown) tubo-ovarian (units (u nknown) date) abscess in June unknown) of 2020. Patient's intolerance of Vibramycin (unknown) (no (unknown) (unknown) urethra (units (unkno wn) date) unknown) (unknown) (no (unknown) (unknown) warranted to (units (u nknown) date) relieve her unknown) symptoms. Result panel 7 (unknown) (no (unknown) (unknown) (no value) (units (unk nown) date) unknown) (unknown) (no (unknown) (unknown) 08:12 (units (unkno wn) date) unknown) (unknown) (no (unknown) (unknown) 03/17/22 (units (unkno wn) date) unknown) (unknown) (no (unknown) (unknown) [id number] (units (unkno wn) date) unknown) (unknown) (no (unknown) (unknown) Acne (-2015) (units (u nknown) date) unknown) (unknown) (no (unknown) (unknown) Age/Sex: 21 / F (units (unknown) date) Date of Service: unknown) (unknown) (no (unknown) (unknown) Allergies (units (unkn own) date) unknown) (unknown) (no (unknown) (unknown) [place], [place] (units ( unknown) date) [id number] unknown) (unknown) (no (unknown) (unknown) Anesthesia (units (unk nown) date) unknown) (unknown) (no (unknown) (unknown) Attending Dr: (units ( unknown) date) Sushant Bryant unknown) (unknown) (no (unknown) (unknown) BMI 26.2 (units (unkno wn) date) unknown) (unknown) (no (unknown) (unknown) BP 130/70 (units (unkn own) date) unknown) (unknown) (no (unknown) (unknown) Blood Pressure (units (unknown) date) Location Rt unknown) brachial (unknown) (no (unknown) (unknown) Chlamydia (units (unkn own) date) infection () unknown) (unknown) (no (unknown) (unknown) : 2000 (units (unknown) date) Acct:[id number] unknown) (unknown) (no (unknown) (unknown) Dept at (units (unkno wn) date) . unknown) (unknown) (no (unknown) (unknown) Documented By: (units (unknown) date) Sushant Bryant unknown) 03/17/22 0810 (unknown) (no (unknown) (unknown) Draft (units (unkno wn) date) unknown) (unknown) (no (unknown) (unknown) Endometriosis (units ( unknown) date) () unknown) (unknown) (no (unknown) (unknown) [facility]) (unknown) (no (unknown) (unknown) Gynecology Visit (units (unknown) date) unknown) (unknown) (no (unknown) (unknown) Heavy menstrual (units (unknown) date) period () unknown) (unknown) (no (unknown) (unknown) Height 5 ft 3.5 (units (unknown) date) in unknown) (unknown) (no (unknown) (unknown) Intake Note: (units (u nknown) date) unknown) (unknown) (no (unknown) (unknown) Intake performed (units (unknown) date) by: William Hay unknown) (unknown) (no (unknown) (unknown) Intake (units (unkno wn) date) unknown) (unknown) (no (unknown) (unknown) Intake- Clincial (units (unknown) date) Staff unknown) (unknown) (no (unknown) (unknown) Irregular (units (unkn own) date) menstrual cycle unknown) () (unknown) (no (unknown) (unknown) Is last (units (unkno wn) date) menstrual period unknown) known: No (unknown) (no (unknown) (unknown) Last Menstural (units (unknown) date) Cycle + Details unknown) (unknown) (no (unknown) (unknown) Loc: [facility] (units (unkno wn) date) unknown) (unknown) (no (unknown) (unknown) Lymphangioma (units (u nknown) date) unknown) (unknown) (no (unknown) (unknown) Medical History (units (unknown) date) (Reviewed unknown) 03/17/22 @ 08:13 by William Hay RN) (unknown) (no (unknown) (unknown) Opioids - (units (unkn own) date) Morphine unknown) Analogues Allergy (Intermediate, Verified 02/24/22 08:15) (unknown) (no (unknown) (unknown) Other Menstrual (units (unknown) date) Period: Other unknown) (unknown) (no (unknown) (unknown) Ovarian cyst (units (u nknown) date) unknown) (unknown) (no (unknown) (unknown) PFSH (units (unkno wn) date) unknown) (unknown) (no (unknown) (unknown) Painful (units (unkno wn) date) menstrual periods unknown) () (unknown) (no (unknown) (unknown) Patient: (units (unkno wn) date) Ade Matthews unknown) MR#: [id number] (unknown) (no (unknown) (unknown) Position Sitting (units (unknown) date) unknown) (unknown) (no (unknown) (unknown) Pt here for FU (units (unknown) date) pelvic pain. unknown) States she is still having pain (unknown) (no (unknown) (unknown) Reason For Visit (units (unknown) date) unknown) (unknown) (no (unknown) (unknown) S/P ACL (units (unkno wn) date) reconstruction unknown) (-06/08/21) (unknown) (no (unknown) (unknown) Signed By: (units (unk nown) date) unknown) (unknown) (no (unknown) (unknown) Smoking Status: (units (unknown) date) Never smoker unknown) (unknown) (no (unknown) (unknown) Surgical History (units (unknown) date) (Reviewed unknown) 03/17/22 @ 08:13 by William Hay RN) (unknown) (no (unknown) (unknown) TOA (units (unkno wn) date) (tubo-ovarian unknown) abscess) (06/28/21) (unknown) (no (unknown) (unknown) This note may (units ( unknown) date) have been all or unknown) partially generated using voice recognition (unknown) (no (unknown) (unknown) Tobacco + (units (unkn own) date) Substance Use unknown) (unknown) (no (unknown) (unknown) Tobacco Status (units (unknown) date) unknown) (unknown) (no (unknown) (unknown) Visit Reasons: (units (unknown) date) F/U Chronic unknown) Pelvic Pain (unknown) (no (unknown) (unknown) Vitals (units (unkno wn) date) unknown) (unknown) (no (unknown) (unknown) Weight 150 lb 1 (units (unknown) date) oz unknown) (unknown) (no (unknown) (unknown) doxycycline (units (un known) date) Adverse Reaction unknown) (Intermediate, Verified 02/24/22 08:15) (unknown) (no (unknown) (unknown) have occurred. (units (unknown) date) If there are any unknown) questions, please contact the Medical Records (unknown) (no (unknown) (unknown) may occur. (units (unk nown) date) Occasional unknown) wrong-word or 'sound-alike' substitutions may have (unknown) (no (unknown) (unknown) occurred due to (units (unknown) date) the inherent unknown) limitations of voice recognition software. Please (unknown) (no (unknown) (unknown) rash (units (unkno wn) date) unknown) (unknown) (no (unknown) (unknown) read the note (units ( unknown) date) carefully and unknown) recognize, using context, where these substitutions (unknown) (no (unknown) (unknown) software. (units (unkn own) date) Although every unknown) effort is made to edit content, financial solutions advisor errors (unknown) (no (unknown) (unknown) vomitt (units (unkno wn) date) unknown) Result panel 8 (unknown) (no (unknown) (unknown) (no value) (units (unk nown) date) unknown) (unknown) (no (unknown) (unknown) 08:12 (units (unkno wn) date) unknown) (unknown) (no (unknown) (unknown) 03/17/22 (units (unkno wn) date) unknown) (unknown) (no (unknown) (unknown) 03/17/22] (units (unkn own) date) unknown) (unknown) (no (unknown) (unknown) [id number] (units (unkno wn) date) unknown) (unknown) (no (unknown) (unknown) Acne (-2016) (units (u nknown) date) unknown) (unknown) (no (unknown) (unknown) Age/Sex: 21 / F (units (unknown) date) Date of Service: unknown) (unknown) (no (unknown) (unknown) Allergies (units (unkn own) date) unknown) (unknown) (no (unknown) (unknown) [place], [place] (units ( unknown) date) [id number] unknown) (unknown) (no (unknown) (unknown) Anesthesia (units (unk nown) date) unknown) (unknown) (no (unknown) (unknown) Attending Dr: (units ( unknown) date) Sushant Bryant unknown) (unknown) (no (unknown) (unknown) BMI 26.2 (units (unkno wn) date) unknown) (unknown) (no (unknown) (unknown) BP 130/70 (units (unkn own) date) unknown) (unknown) (no (unknown) (unknown) Blood Pressure (units (unknown) date) Location Rt unknown) brachial (unknown) (no (unknown) (unknown) Chief Complaint (units (unknown) date) unknown) (unknown) (no (unknown) (unknown) Chief Complaint: (units (unknown) date) Right lower unknown) quadrant pain, recurrent bacterial vaginosis (unknown) (no (unknown) (unknown) Chlamydia (units (unkn own) date) infection () unknown) (unknown) (no (unknown) (unknown) : 2000 (units (unknown) date) Acct:[id number] unknown) (unknown) (no (unknown) (unknown) Dept at (units (unkno wn) date) . unknown) (unknown) (no (unknown) (unknown) Details: (units (unkno wn) date) unknown) (unknown) (no (unknown) (unknown) Documented By: (units (unknown) date) Sushant Bryant unknownFlip MOORE 03/17/22 0810 (unknown) (no (unknown) (unknown) Draft (units (unkno wn) date) unknown) (unknown) (no (unknown) (unknown) Endometriosis (units ( unknown) date) () unknown) (unknown) (no (unknown) (unknown) [facility]) (unknown) (no (unknown) (unknown) Ade returns (units ( unknown) date) today after 2 unknown) week therapy with (unknown) (no (unknown) (unknown) Gynecology Visit (units (unknown) date) unknown) (unknown) (no (unknown) (unknown) HPI (units (unkno wn) date) unknown) (unknown) (no (unknown) (unknown) Heavy menstrual (units (unknown) date) period (-2019) unknown) (unknown) (no (unknown) (unknown) Height 5 ft 3.5 (units (unknown) date) in unknown) (unknown) (no (unknown) (unknown) Intake Note: (units (u nknown) date) unknown) (unknown) (no (unknown) (unknown) Intake performed (units (unknown) date) by: William Hay unknown) (unknown) (no (unknown) (unknown) Intake (units (unkno wn) date) unknown) (unknown) (no (unknown) (unknown) Intake- Clincial (units (unknown) date) Staff unknown) (unknown) (no (unknown) (unknown) Irregular (units (unkn own) date) menstrual cycle unknown) () (unknown) (no (unknown) (unknown) Is last (units (unkno wn) date) menstrual period unknown) known: No (unknown) (no (unknown) (unknown) Last Menstural (units (unknown) date) Cycle + Details unknown) (unknown) (no (unknown) (unknown) Loc: [facility] (units (unkno wn) date) unknown) (unknown) (no (unknown) (unknown) Lymphangioma (units (u nknown) date) unknown) (unknown) (no (unknown) (unknown) Medical History (units (unknown) date) (Reviewed unknown) 03/17/22 @ 08:13 by William Hay RN) (unknown) (no (unknown) (unknown) Medications (units (un known) date) unknown) (unknown) (no (unknown) (unknown) Opioids - (units (unkn own) date) Morphine unknown) Analogues Allergy (Intermediate, Verified 03/17/22 08:14) (unknown) (no (unknown) (unknown) Other Menstrual (units (unknown) date) Period: Other unknown) (unknown) (no (unknown) (unknown) Ovarian cyst (units (u nknown) date) unknown) (unknown) (no (unknown) (unknown) PFSH (units (unkno wn) date) unknown) (unknown) (no (unknown) (unknown) Painful (units (unkno wn) date) menstrual periods unknown) () (unknown) (no (unknown) (unknown) Patient: (units (unkno wn) date) Ade Matthews unknown) MR#: [id number] (unknown) (no (unknown) (unknown) Position Sitting (units (unknown) date) unknown) (unknown) (no (unknown) (unknown) Pt here for FU (units (unknown) date) pelvic pain. unknown) States she is still having pain (unknown) (no (unknown) (unknown) Reason For Visit (units (unknown) date) unknown) (unknown) (no (unknown) (unknown) S/P ACL (units (unkno wn) date) reconstruction unknown) (06/08/21) (unknown) (no (unknown) (unknown) Signed By: (units (unk nown) date) unknown) (unknown) (no (unknown) (unknown) Smoking Status: (units (unknown) date) Never smoker unknown) (unknown) (no (unknown) (unknown) Surgical History (units (unknown) date) (Reviewed unknown) 03/17/22 @ 08:13 by William Hay RN) (unknown) (no (unknown) (unknown) TOA (units (unkno wn) date) (tubo-ovarian unknown) abscess) (06/28/21) (unknown) (no (unknown) (unknown) This note may (units ( unknown) date) have been all or unknown) partially generated using voice recognition (unknown) (no (unknown) (unknown) Tobacco + (units (unkn own) date) Substance Use unknown) (unknown) (no (unknown) (unknown) Tobacco Status (units (unknown) date) unknown) (unknown) (no (unknown) (unknown) Visit Reasons: (units (unknown) date) F/U Chronic unknown) Pelvic Pain (unknown) (no (unknown) (unknown) Vitals (units (unkno wn) date) unknown) (unknown) (no (unknown) (unknown) Weight 150 lb 1 (units (unknown) date) oz unknown) (unknown) (no (unknown) (unknown) doxycycline (units (un known) date) Adverse Reaction unknown) (Intermediate, Verified 03/17/22 08:14) (unknown) (no (unknown) (unknown) have occurred. (units (unknown) date) If there are any unknown) questions, please contact the Medical Records (unknown) (no (unknown) (unknown) may occur. (units (unk nown) date) Occasional unknown) wrong-word or 'sound-alike' substitutions may have (unknown) (no (unknown) (unknown) occurred due to (units (unknown) date) the inherent unknown) limitations of voice recognition software. Please (unknown) (no (unknown) (unknown) oxycodone 5 mg (units (unknown) date) tablet 5 mg PO unknown) Q6H PRN pain #10 tabs 02/24/22 [Rx Confirmed (unknown) (no (unknown) (unknown) promethazine 25 (units (unknown) date) mg tablet 25 mg unknown) PO Q6H PRN 11/30/21 [History Confirmed 03/17/22] (unknown) (no (unknown) (unknown) rash (units (unkno wn) date) unknown) (unknown) (no (unknown) (unknown) read the note (units ( unknown) date) carefully and unknown) recognize, using context, where these substitutions (unknown) (no (unknown) (unknown) software. (units (unkn own) date) Although every unknown) effort is made to edit content, financial solutions advisor errors (unknown) (no (unknown) (unknown) vomitt (units (unkno wn) date) unknown) Result panel 9 (unknown) (no (unknown) (unknown) (no value) (units (unk nown) date) unknown) (unknown) (no (unknown) (unknown) 08:12 (units (unkno wn) date) unknown) (unknown) (no (unknown) (unknown) 03/17/22 (units (unkno wn) date) unknown) (unknown) (no (unknown) (unknown) 03/17/22] (units (unkn own) date) unknown) (unknown) (no (unknown) (unknown) [id number] (units (unkno wn) date) unknown) (unknown) (no (unknown) (unknown) Acne (-2016) (units (u nknown) date) unknown) (unknown) (no (unknown) (unknown) Age/Sex: 21 / F (units (unknown) date) Date of Service: unknown) (unknown) (no (unknown) (unknown) Allergies (units (unkn own) date) unknown) (unknown) (no (unknown) (unknown) [place], [place] (units ( unknown) date) [id number] unknown) (unknown) (no (unknown) (unknown) Anesthesia (units (unk nown) date) unknown) (unknown) (no (unknown) (unknown) Attending Dr: (units ( unknown) date) Sushant Bryant unknown) (unknown) (no (unknown) (unknown) BMI 26.2 (units (unkno wn) date) unknown) (unknown) (no (unknown) (unknown) BP 130/70 (units (unkn own) date) unknown) (unknown) (no (unknown) (unknown) Blood Pressure (units (unknown) date) Location Rt unknown) brachial (unknown) (no (unknown) (unknown) Chief Complaint (units (unknown) date) unknown) (unknown) (no (unknown) (unknown) Chief Complaint: (units (unknown) date) Right lower unknown) quadrant pain, recurrent bacterial vaginosis (unknown) (no (unknown) (unknown) Chlamydia (units (unkn own) date) infection () unknown) (unknown) (no (unknown) (unknown) : 2000 (units (unknown) date) Acct:[id number] unknown) (unknown) (no (unknown) (unknown) Dept at (units (unkno wn) date) . unknown) (unknown) (no (unknown) (unknown) Details: (units (unkno wn) date) unknown) (unknown) (no (unknown) (unknown) Documented By: (units (unknown) date) Sushant Bryant unknown) 03/17/22 0810 (unknown) (no (unknown) (unknown) Draft (units (unkno wn) date) unknown) (unknown) (no (unknown) (unknown) Endometriosis (units ( unknown) date) () unknown) (unknown) (no (unknown) (unknown) [facility]) (unknown) (no (unknown) (unknown) Ade returns (units ( unknown) date) today after 2 unknown) week therapy with levofloxacin and metronidazole. (unknown) (no (unknown) (unknown) Gynecology Visit (units (unknown) date) unknown) (unknown) (no (unknown) (unknown) HPI (units (unkno wn) date) unknown) (unknown) (no (unknown) (unknown) Heavy menstrual (units (unknown) date) period () unknown) (unknown) (no (unknown) (unknown) Height 5 ft 3.5 (units (unknown) date) in unknown) (unknown) (no (unknown) (unknown) Intake Note: (units (u nknown) date) unknown) (unknown) (no (unknown) (unknown) Intake performed (units (unknown) date) by: William Hay unknown) (unknown) (no (unknown) (unknown) Intake (units (unkno wn) date) unknown) (unknown) (no (unknown) (unknown) Intake- Clincial (units (unknown) date) Staff unknown) (unknown) (no (unknown) (unknown) Irregular (units (unkn own) date) menstrual cycle unknown) () (unknown) (no (unknown) (unknown) Is last (units (unkno wn) date) menstrual period unknown) known: No (unknown) (no (unknown) (unknown) Last Menstural (units (unknown) date) Cycle + Details unknown) (unknown) (no (unknown) (unknown) Loc: [facility] (units (unkno wn) date) unknown) (unknown) (no (unknown) (unknown) Lymphangioma (units (u nknown) date) unknown) (unknown) (no (unknown) (unknown) Medical History (units (unknown) date) (Reviewed unknown) 03/17/22 @ 08:13 by William Hay RN) (unknown) (no (unknown) (unknown) Medications (units (un known) date) unknown) (unknown) (no (unknown) (unknown) Opioids - (units (unkn own) date) Morphine unknown) Analogues Allergy (Intermediate, Verified 03/17/22 08:14) (unknown) (no (unknown) (unknown) Other Menstrual (units (unknown) date) Period: Other unknown) (unknown) (no (unknown) (unknown) Ovarian cyst (units (u nknown) date) unknown) (unknown) (no (unknown) (unknown) PFSH (units (unkno wn) date) unknown) (unknown) (no (unknown) (unknown) Painful (units (unkno wn) date) menstrual periods unknown) () (unknown) (no (unknown) (unknown) Patient: (units (unkno wn) date) Ade Matthews unknown) MR#: [id number] (unknown) (no (unknown) (unknown) Position Sitting (units (unknown) date) unknown) (unknown) (no (unknown) (unknown) Pt here for FU (units (unknown) date) pelvic pain. unknown) States she is still having pain (unknown) (no (unknown) (unknown) Reason For Visit (units (unknown) date) unknown) (unknown) (no (unknown) (unknown) S/P ACL (units (unkno wn) date) reconstruction unknown) (06/08/21) (unknown) (no (unknown) (unknown) She is not noted (units (unknown) date) any significant unknown) difference in her right lower quadrant/right (unknown) (no (unknown) (unknown) Signed By: (units (unk nown) date) unknown) (unknown) (no (unknown) (unknown) Smoking Status: (units (unknown) date) Never smoker unknown) (unknown) (no (unknown) (unknown) Surgical History (units (unknown) date) (Reviewed unknown) 03/17/22 @ 08:13 by William Hay RN) (unknown) (no (unknown) (unknown) TOA (units (unkno wn) date) (tubo-ovarian unknown) abscess) (06/28/21) (unknown) (no (unknown) (unknown) This note may (units ( unknown) date) have been all or unknown) partially generated using voice recognition (unknown) (no (unknown) (unknown) Tobacco + (units (unkn own) date) Substance Use unknown) (unknown) (no (unknown) (unknown) Tobacco Status (units (unknown) date) unknown) (unknown) (no (unknown) (unknown) Visit Reasons: (units (unknown) date) F/U Chronic unknown) Pelvic Pain (unknown) (no (unknown) (unknown) Vitals (units (unkno wn) date) unknown) (unknown) (no (unknown) (unknown) Weight 150 lb 1 (units (unknown) date) oz unknown) (unknown) (no (unknown) (unknown) doxycycline (units (un known) date) Adverse Reaction unknown) (Intermediate, Verified 03/17/22 08:14) (unknown) (no (unknown) (unknown) evaluation/treat (units (unknown) date) ment of her unknown) RLQ/pelvic pain. (unknown) (no (unknown) (unknown) have occurred. (units (unknown) date) If there are any unknown) questions, please contact the Medical Records (unknown) (no (unknown) (unknown) may occur. (units (unk nown) date) Occasional unknown) wrong-word or 'sound-alike' substitutions may have (unknown) (no (unknown) (unknown) occurred due to (units (unknown) date) the inherent unknown) limitations of voice recognition software. Please (unknown) (no (unknown) (unknown) oxycodone 5 mg (units (unknown) date) tablet 5 mg PO unknown) Q6H PRN pain #10 tabs 02/24/22 [Rx Confirmed (unknown) (no (unknown) (unknown) promethazine 25 (units (unknown) date) mg tablet 25 mg unknown) PO Q6H PRN 11/30/21 [History Confirmed 03/17/22] (unknown) (no (unknown) (unknown) rash (units (unkno wn) date) unknown) (unknown) (no (unknown) (unknown) read the note (units ( unknown) date) carefully and unknown) recognize, using context, where these substitutions (unknown) (no (unknown) (unknown) sided pelvic (units (u nknown) date) pain. In addition unknown) her bacterial vaginosis which initially improved (unknown) (no (unknown) (unknown) software. (units (unkn own) date) Although every unknown) effort is made to edit content, financial solutions advisor errors (unknown) (no (unknown) (unknown) vomitt (units (unkno wn) date) unknown) (unknown) (no (unknown) (unknown) with therapy has (units (unknown) date) returned. Patient unknown) wishes to proceed with definitive Result panel 10 (unknown) (no date) (unknown) (unknown) Negative (units (unkn own) unknown) (unknown) (no date) (unknown) (unknown) Negative (units 6568- 0 unknown) (unknown) (no date) (unknown) (unknown) Positive (units (unkn own) unknown) (unknown) (no date) (unknown) (unknown) Positive (units 94074 -5 unknown) (unknown) (no date) (unknown) (unknown) Positive (units 6410- 5 unknown) Result panel 11 (unknown) (no (unknown) (unknown) (no value) (units (unk nown) date) unknown) (unknown) (no (unknown) (unknown) 08:12 (units (unkno wn) date) unknown) (unknown) (no (unknown) (unknown) 03/17/22 (units (unkno wn) date) unknown) (unknown) (no (unknown) (unknown) 03/17/22] (units (unkn own) date) unknown) (unknown) (no (unknown) (unknown) [id number] (units (unkno wn) date) unknown) (unknown) (no (unknown) (unknown) Acne (-2016) (units (u nknown) date) unknown) (unknown) (no (unknown) (unknown) Affirm Vaginosis (units (unknown) date) [place] Bacterial unknown) Today B96.89 - Other specified bacterial agents (unknown) (no (unknown) (unknown) Age/Sex: 21 / F (units (unknown) date) Date of Service: unknown) (unknown) (no (unknown) (unknown) Allergies (units (unkn own) date) unknown) (unknown) (no (unknown) (unknown) [place], [place] (units ( unknown) date) [id number] unknown) (unknown) (no (unknown) (unknown) Anesthesia (units (unk nown) date) unknown) (unknown) (no (unknown) (unknown) Assessment + (units (u nknown) date) Plan unknown) (unknown) (no (unknown) (unknown) Attending Dr: (units ( unknown) date) Sushant Bryant unknown) (unknown) (no (unknown) (unknown) BMI 26.2 (units (unkno wn) date) unknown) (unknown) (no (unknown) (unknown) BP 130/70 (units (unkn own) date) unknown) (unknown) (no (unknown) (unknown) Blood Pressure (units (unknown) date) Location Rt unknown) brachial (unknown) (no (unknown) (unknown) Chief Complaint (units (unknown) date) unknown) (unknown) (no (unknown) (unknown) Chief Complaint: (units (unknown) date) Right lower unknown) quadrant pain, recurrent bacterial vaginosis (unknown) (no (unknown) (unknown) Chlamydia (units (unkn own) date) infection () unknown) (unknown) (no (unknown) (unknown) : 2000 (units (unknown) date) Acct:[id number] unknown) (unknown) (no (unknown) (unknown) Dept at (units (unkno wn) date) . unknown) (unknown) (no (unknown) (unknown) Details: (units (unkno wn) date) unknown) (unknown) (no (unknown) (unknown) Documented By: (units (unknown) date) Sushant Bryant unknown) 03/17/22 0810 (unknown) (no (unknown) (unknown) Draft (units (unkno wn) date) unknown) (unknown) (no (unknown) (unknown) Endometriosis (units ( unknown) date) () unknown) (unknown) (no (unknown) (unknown) [facility]) (unknown) (no (unknown) (unknown) Ade returns (units ( unknown) date) today after 2 unknown) week therapy with levofloxacin and metronidazole. (unknown) (no (unknown) (unknown) Gynecology Visit (units (unknown) date) unknown) (unknown) (no (unknown) (unknown) HPI (units (unkno wn) date) unknown) (unknown) (no (unknown) (unknown) Heavy menstrual (units (unknown) date) period (-2018) unknown) (unknown) (no (unknown) (unknown) Height 5 ft 3.5 (units (unknown) date) in unknown) (unknown) (no (unknown) (unknown) Intake Note: (units (u nknown) date) unknown) (unknown) (no (unknown) (unknown) Intake performed (units (unknown) date) by: William Hay unknown) (unknown) (no (unknown) (unknown) Intake (units (unkno wn) date) unknown) (unknown) (no (unknown) (unknown) Intake- Clincial (units (unknown) date) Staff unknown) (unknown) (no (unknown) (unknown) Irregular (units (unkn own) date) menstrual cycle unknown) () (unknown) (no (unknown) (unknown) Is last (units (unkno wn) date) menstrual period unknown) known: No (unknown) (no (unknown) (unknown) Last Menstural (units (unknown) date) Cycle + Details unknown) (unknown) (no (unknown) (unknown) Loc: [facility] (units (unkno wn) date) unknown) (unknown) (no (unknown) (unknown) Lymphangioma (units (u nknown) date) unknown) (unknown) (no (unknown) (unknown) Medical History (units (unknown) date) (Reviewed unknown) 03/17/22 @ 08:13 by William Hay, RN) (unknown) (no (unknown) (unknown) Medications (units (un known) date) unknown) (unknown) (no (unknown) (unknown) Opioids - (units (unkn own) date) Morphine unknown) Analogues Allergy (Intermediate, Verified 03/17/22 08:14) (unknown) (no (unknown) (unknown) Orders (units (unkno wn) date) unknown) (unknown) (no (unknown) (unknown) Orders: (units (unkno wn) date) unknown) (unknown) (no (unknown) (unknown) Other Menstrual (units (unknown) date) Period: Other unknown) (unknown) (no (unknown) (unknown) Ovarian cyst (units (u nknown) date) unknown) (unknown) (no (unknown) (unknown) PFSH (units (unkno wn) date) unknown) (unknown) (no (unknown) (unknown) Painful (units (unkno wn) date) menstrual periods unknown) () (unknown) (no (unknown) (unknown) Patient: (units (unkno wn) date) Ade Matthews unknown) MR#: [id number] (unknown) (no (unknown) (unknown) Pelvic and (units (unk nown) date) perineal pain unknown) (unknown) (no (unknown) (unknown) Position Sitting (units (unknown) date) unknown) (unknown) (no (unknown) (unknown) Pt here for FU (units (unknown) date) pelvic pain. unknown) States she is still having pain (unknown) (no (unknown) (unknown) Reason For Visit (units (unknown) date) unknown) (unknown) (no (unknown) (unknown) S/P ACL (units (unkno wn) date) reconstruction unknown) (06/08/21) (unknown) (no (unknown) (unknown) She is not noted (units (unknown) date) any significant unknown) difference in her right lower quadrant/right (unknown) (no (unknown) (unknown) Signed By: (units (unk nown) date) unknown) (unknown) (no (unknown) (unknown) Smoking Status: (units (unknown) date) Never smoker unknown) (unknown) (no (unknown) (unknown) Surgical History (units (unknown) date) (Reviewed unknown) 03/17/22 @ 08:13 by William Hay RN) (unknown) (no (unknown) (unknown) TOA (units (unkno wn) date) (tubo-ovarian unknown) abscess) (06/28/21) (unknown) (no (unknown) (unknown) This note may (units ( unknown) date) have been all or unknown) partially generated using voice recognition (unknown) (no (unknown) (unknown) Tobacco + (units (unkn own) date) Substance Use unknown) (unknown) (no (unknown) (unknown) Tobacco Status (units (unknown) date) unknown) (unknown) (no (unknown) (unknown) Visit Reasons: (units (unknown) date) F/U Chronic unknown) Pelvic Pain (unknown) (no (unknown) (unknown) Vitals (units (unkno wn) date) unknown) (unknown) (no (unknown) (unknown) Weight 150 lb 1 (units (unknown) date) oz unknown) (unknown) (no (unknown) (unknown) as the cause of (units (unknown) date) diseases unknown) classified elsewhere, N76.0 - Acute vaginitis, R10.2 (unknown) (no (unknown) (unknown) doxycycline (units (un known) date) Adverse Reaction unknown) (Intermediate, Verified 03/17/22 08:14) (unknown) (no (unknown) (unknown) evaluation/treat (units (unknown) date) ment of her unknown) RLQ/pelvic pain. (unknown) (no (unknown) (unknown) have occurred. (units (unknown) date) If there are any unknown) questions, please contact the Medical Records (unknown) (no (unknown) (unknown) may occur. (units (unk nown) date) Occasional unknown) wrong-word or 'sound-alike' substitutions may have (unknown) (no (unknown) (unknown) occurred due to (units (unknown) date) the inherent unknown) limitations of voice recognition software. Please (unknown) (no (unknown) (unknown) oxycodone 5 mg (units (unknown) date) tablet 5 mg PO unknown) Q6H PRN pain #10 tabs 02/24/22 [Rx Confirmed (unknown) (no (unknown) (unknown) promethazine 25 (units (unknown) date) mg tablet 25 mg unknown) PO Q6H PRN 11/30/21 [History Confirmed 03/17/22] (unknown) (no (unknown) (unknown) rash (units (unkno wn) date) unknown) (unknown) (no (unknown) (unknown) read the note (units ( unknown) date) carefully and unknown) recognize, using context, where these substitutions (unknown) (no (unknown) (unknown) sided pelvic (units (u nknown) date) pain. In addition unknown) her bacterial vaginosis which initially improved (unknown) (no (unknown) (unknown) software. (units (unkn own) date) Although every unknown) effort is made to edit content, financial solutions advisor errors (unknown) (no (unknown) (unknown) vomitt (units (unkno wn) date) unknown) (unknown) (no (unknown) (unknown) with therapy has (units (unknown) date) returned. Patient unknown) wishes to proceed with definitive Result panel 12 (unknown) (no (unknown) (unknown) (no value) (units (unk nown) date) unknown) (unknown) (no (unknown) (unknown) 08:12 (units (unkno wn) date) unknown) (unknown) (no (unknown) (unknown) 03/17/22 (units (unkno wn) date) unknown) (unknown) (no (unknown) (unknown) 03/17/22] (units (unkn own) date) unknown) (unknown) (no (unknown) (unknown) [id number] (units (unkno wn) date) unknown) (unknown) (no (unknown) (unknown) Acne (-2016) (units (u nknown) date) unknown) (unknown) (no (unknown) (unknown) Affirm Vaginosis (units (unknown) date) [place] Bacterial unknown) Today B96.89 - Other specified bacterial agents (unknown) (no (unknown) (unknown) Age/Sex: 21 / F (units (unknown) date) Date of Service: unknown) (unknown) (no (unknown) (unknown) Allergies (units (unkn own) date) unknown) (unknown) (no (unknown) (unknown) [place], [place] (units ( unknown) date) [id number] unknown) (unknown) (no (unknown) (unknown) Anesthesia (units (unk nown) date) unknown) (unknown) (no (unknown) (unknown) Assessment + (units (u nknown) date) Plan unknown) (unknown) (no (unknown) (unknown) Attending Dr: (units ( unknown) date) Sushant Bryant unknown) (unknown) (no (unknown) (unknown) BMI 26.2 (units (unkno wn) date) unknown) (unknown) (no (unknown) (unknown) BP 130/70 (units (unkn own) date) unknown) (unknown) (no (unknown) (unknown) Blood Pressure (units (unknown) date) Location Rt unknown) brachial (unknown) (no (unknown) (unknown) Chief Complaint (units (unknown) date) unknown) (unknown) (no (unknown) (unknown) Chief Complaint: (units (unknown) date) Right lower unknown) quadrant pain, recurrent bacterial vaginosis (unknown) (no (unknown) (unknown) Chlamydia (units (unkn own) date) infection () unknown) (unknown) (no (unknown) (unknown) : 2000 (units (unknown) date) Acct:[id number] unknown) (unknown) (no (unknown) (unknown) Dept at (units (unkno wn) date) . unknown) (unknown) (no (unknown) (unknown) Details: (units (unkno wn) date) unknown) (unknown) (no (unknown) (unknown) Documented By: (units (unknown) date) Sushant Bryant unknownFlip MOORE 03/17/22 0810 (unknown) (no (unknown) (unknown) Draft (units (unkno wn) date) unknown) (unknown) (no (unknown) (unknown) Endometriosis (units ( unknown) date) () unknown) (unknown) (no (unknown) (unknown) [facility]) (unknown) (no (unknown) (unknown) Ade returns (units ( unknown) date) today after 2 unknown) week therapy with levofloxacin and metronidazole. (unknown) (no (unknown) (unknown) Gynecology Visit (units (unknown) date) unknown) (unknown) (no (unknown) (unknown) HPI (units (unkno wn) date) unknown) (unknown) (no (unknown) (unknown) Heavy menstrual (units (unknown) date) period () unknown) (unknown) (no (unknown) (unknown) Height 5 ft 3.5 (units (unknown) date) in unknown) (unknown) (no (unknown) (unknown) Intake Note: (units (u nknown) date) unknown) (unknown) (no (unknown) (unknown) Intake performed (units (unknown) date) by: William Hay unknown) (unknown) (no (unknown) (unknown) Intake (units (unkno wn) date) unknown) (unknown) (no (unknown) (unknown) Intake- Clincial (units (unknown) date) Staff unknown) (unknown) (no (unknown) (unknown) Irregular (units (unkn own) date) menstrual cycle unknown) () (unknown) (no (unknown) (unknown) Is last (units (unkno wn) date) menstrual period unknown) known: No (unknown) (no (unknown) (unknown) Last Menstural (units (unknown) date) Cycle + Details unknown) (unknown) (no (unknown) (unknown) Loc: [facility] (units (unkno wn) date) unknown) (unknown) (no (unknown) (unknown) Lymphangioma (units (u nknown) date) unknown) (unknown) (no (unknown) (unknown) Medical History (units (unknown) date) (Reviewed unknown) 03/17/22 @ 08:13 by William Hay RN) (unknown) (no (unknown) (unknown) Medications (units (un known) date) unknown) (unknown) (no (unknown) (unknown) Medications: (units (u nknown) date) unknown) (unknown) (no (unknown) (unknown) New (units (unkno wn) date) unknown) (unknown) (no (unknown) (unknown) Opioids - (units (unkn own) date) Morphine unknown) Analogues Allergy (Intermediate, Verified 03/17/22 08:14) (unknown) (no (unknown) (unknown) Orders (units (unkno wn) date) unknown) (unknown) (no (unknown) (unknown) Orders: (units (unkno wn) date) unknown) (unknown) (no (unknown) (unknown) Other Menstrual (units (unknown) date) Period: Other unknown) (unknown) (no (unknown) (unknown) Ovarian cyst (units (u nknown) date) unknown) (unknown) (no (unknown) (unknown) PFSH (units (unkno wn) date) unknown) (unknown) (no (unknown) (unknown) Painful (units (unkno wn) date) menstrual periods unknown) () (unknown) (no (unknown) (unknown) Patient: (units (unkno wn) date) Ade Matthews unknown) MR#: [id number] (unknown) (no (unknown) (unknown) Pelvic and (units (unk nown) date) perineal pain unknown) (unknown) (no (unknown) (unknown) Position Sitting (units (unknown) date) unknown) (unknown) (no (unknown) (unknown) Pt here for FU (units (unknown) date) pelvic pain. unknown) States she is still having pain (unknown) (no (unknown) (unknown) Reason For Visit (units (unknown) date) unknown) (unknown) (no (unknown) (unknown) S/P ACL (units (unkno wn) date) reconstruction unknown) (06/08/21) (unknown) (no (unknown) (unknown) She is not noted (units (unknown) date) any significant unknown) difference in her right lower quadrant/right (unknown) (no (unknown) (unknown) Signed By: (units (unk nown) date) unknown) (unknown) (no (unknown) (unknown) Smoking Status: (units (unknown) date) Never smoker unknown) (unknown) (no (unknown) (unknown) Surgical History (units (unknown) date) (Reviewed unknown) 03/17/22 @ 08:13 by William Hay RN) (unknown) (no (unknown) (unknown) TOA (units (unkno wn) date) (tubo-ovarian unknown) abscess) (06/28/21) (unknown) (no (unknown) (unknown) This note may (units ( unknown) date) have been all or unknown) partially generated using voice recognition (unknown) (no (unknown) (unknown) Tobacco + (units (unkn own) date) Substance Use unknown) (unknown) (no (unknown) (unknown) Tobacco Status (units (unknown) date) unknown) (unknown) (no (unknown) (unknown) US pelvic (units (unkn own) date) complete 1 Week unknown) G89.29 - Other chronic pain, N70.11 - Chronic (unknown) (no (unknown) (unknown) Visit Reasons: (units (unknown) date) F/U Chronic unknown) Pelvic Pain (unknown) (no (unknown) (unknown) Vitals (units (unkno wn) date) unknown) (unknown) (no (unknown) (unknown) Weight 150 lb 1 (units (unknown) date) oz unknown) (unknown) (no (unknown) (unknown) as the cause of (units (unknown) date) diseases unknown) classified elsewhere, N76.0 - Acute vaginitis, R10.2 (unknown) (no (unknown) (unknown) clindamycin HCl (units (unknown) date) 150 mg PO DAILY unknown) 30 caps 0RF (unknown) (no (unknown) (unknown) clindamycin HCl (units (unknown) date) 150 mg capsule unknown) 150 mg PO DAILY #30 caps 03/17/22 [Rx Confirmed (unknown) (no (unknown) (unknown) doxycycline (units (un known) date) Adverse Reaction unknown) (Intermediate, Verified 03/17/22 08:14) (unknown) (no (unknown) (unknown) evaluation/treat (units (unknown) date) ment of her unknown) RLQ/pelvic pain. (unknown) (no (unknown) (unknown) have occurred. (units (unknown) date) If there are any unknown) questions, please contact the Medical Records (unknown) (no (unknown) (unknown) lower quadrant (units (unknown) date) pain unknown) (unknown) (no (unknown) (unknown) may occur. (units (unk nown) date) Occasional unknown) wrong-word or 'sound-alike' substitutions may have (unknown) (no (unknown) (unknown) occurred due to (units (unknown) date) the inherent unknown) limitations of voice recognition software. Please (unknown) (no (unknown) (unknown) oxycodone 5 mg (units (unknown) date) tablet 5 mg PO unknown) Q6H PRN pain #10 tabs 02/24/22 [Rx Confirmed (unknown) (no (unknown) (unknown) promethazine 25 (units (unknown) date) mg tablet 25 mg unknown) PO Q6H PRN 11/30/21 [History Confirmed 03/17/22] (unknown) (no (unknown) (unknown) rash (units (unkno wn) date) unknown) (unknown) (no (unknown) (unknown) read the note (units ( unknown) date) carefully and unknown) recognize, using context, where these substitutions (unknown) (no (unknown) (unknown) salpingitis, (units (u nknown) date) N70.93 - unknown) Salpingitis and oophoritis, unspecified, R10.31 - Right (unknown) (no (unknown) (unknown) sided pelvic (units (u nknown) date) pain. In addition unknown) her bacterial vaginosis which initially improved (unknown) (no (unknown) (unknown) software. (units (unkn own) date) Although every unknown) effort is made to edit content, financial solutions advisor errors (unknown) (no (unknown) (unknown) vomitt (units (unkno wn) date) unknown) (unknown) (no (unknown) (unknown) with therapy has (units (unknown) date) returned. Patient unknown) wishes to proceed with definitive Result panel 13 (unknown) (no (unknown) (unknown) (no value) (units (unk nown) date) unknown) (unknown) (no (unknown) (unknown) 08:12 (units (unkno wn) date) unknown) (unknown) (no (unknown) (unknown) 03/17/22 (units (unkno wn) date) unknown) (unknown) (no (unknown) (unknown) 03/17/22] (units (unkn own) date) unknown) (unknown) (no (unknown) (unknown) [id number] (units (unkno wn) date) unknown) (unknown) (no (unknown) (unknown) Acne (-2016) (units (u nknown) date) unknown) (unknown) (no (unknown) (unknown) Affirm Vaginosis (units (unknown) date) [place] Bacterial unknown) Today B96.89 - Other specified bacterial agents (unknown) (no (unknown) (unknown) Age/Sex: 21 / F (units (unknown) date) Date of Service: unknown) (unknown) (no (unknown) (unknown) Allergies (units (unkn own) date) unknown) (unknown) (no (unknown) (unknown) [place], [place] (units ( unknown) date) [id number] unknown) (unknown) (no (unknown) (unknown) Anesthesia (units (unk nown) date) unknown) (unknown) (no (unknown) (unknown) Assessment + (units (u nknown) date) Plan unknown) (unknown) (no (unknown) (unknown) Attending Dr: (units ( unknown) date) Sushant Bryant unknown) (unknown) (no (unknown) (unknown) BMI 26.2 (units (unkno wn) date) unknown) (unknown) (no (unknown) (unknown) BP 130/70 (units (unkn own) date) unknown) (unknown) (no (unknown) (unknown) Blood Pressure (units (unknown) date) Location Rt unknown) brachial (unknown) (no (unknown) (unknown) Chief Complaint (units (unknown) date) unknown) (unknown) (no (unknown) (unknown) Chief Complaint: (units (unknown) date) Right lower unknown) quadrant pain, recurrent bacterial vaginosis (unknown) (no (unknown) (unknown) Chlamydia (units (unkn own) date) infection () unknown) (unknown) (no (unknown) (unknown) : 2000 (units (unknown) date) Acct:[id number] unknown) (unknown) (no (unknown) (unknown) Dept at (units (unkno wn) date) . unknown) (unknown) (no (unknown) (unknown) Details: (units (unkno wn) date) unknown) (unknown) (no (unknown) (unknown) Documented By: (units (unknown) date) Sushant Bryant unknown) 03/17/22 0810 (unknown) (no (unknown) (unknown) Draft (units (unkno wn) date) unknown) (unknown) (no (unknown) (unknown) Endometriosis (units ( unknown) date) () unknown) (unknown) (no (unknown) (unknown) [facility]) (unknown) (no (unknown) (unknown) Ade returns (units ( unknown) date) today after 2 unknown) week therapy with levofloxacin and metronidazole. (unknown) (no (unknown) (unknown) Gynecology Visit (units (unknown) date) unknown) (unknown) (no (unknown) (unknown) HPI (units (unkno wn) date) unknown) (unknown) (no (unknown) (unknown) Heavy menstrual (units (unknown) date) period () unknown) (unknown) (no (unknown) (unknown) Height 5 ft 3.5 (units (unknown) date) in unknown) (unknown) (no (unknown) (unknown) Intake Note: (units (u nknown) date) unknown) (unknown) (no (unknown) (unknown) Intake performed (units (unknown) date) by: William Hay unknown) (unknown) (no (unknown) (unknown) Intake (units (unkno wn) date) unknown) (unknown) (no (unknown) (unknown) Intake- Clincial (units (unknown) date) Staff unknown) (unknown) (no (unknown) (unknown) Irregular (units (unkn own) date) menstrual cycle unknown) () (unknown) (no (unknown) (unknown) Is last (units (unkno wn) date) menstrual period unknown) known: No (unknown) (no (unknown) (unknown) Last Menstural (units (unknown) date) Cycle + Details unknown) (unknown) (no (unknown) (unknown) Loc: [facility] (units (unkno wn) date) unknown) (unknown) (no (unknown) (unknown) Lymphangioma (units (u nknown) date) unknown) (unknown) (no (unknown) (unknown) Medical History (units (unknown) date) (Reviewed unknown) 03/17/22 @ 08:13 by William Hay RN) (unknown) (no (unknown) (unknown) Medications (units (un known) date) unknown) (unknown) (no (unknown) (unknown) Medications: (units (u nknown) date) unknown) (unknown) (no (unknown) (unknown) New (units (unkno wn) date) unknown) (unknown) (no (unknown) (unknown) Opioids - (units (unkn own) date) Morphine unknown) Analogues Allergy (Intermediate, Verified 03/17/22 08:14) (unknown) (no (unknown) (unknown) Orders (units (unkno wn) date) unknown) (unknown) (no (unknown) (unknown) Orders: (units (unkno wn) date) unknown) (unknown) (no (unknown) (unknown) Other Menstrual (units (unknown) date) Period: Other unknown) (unknown) (no (unknown) (unknown) Ovarian cyst (units (u nknown) date) unknown) (unknown) (no (unknown) (unknown) PFSH (units (unkno wn) date) unknown) (unknown) (no (unknown) (unknown) Painful (units (unkno wn) date) menstrual periods unknown) () (unknown) (no (unknown) (unknown) Patient: (units (unkno wn) date) 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 unknown) States she is still having pain (unknown) (no (unknown) (unknown) Reason For Visit (units (unknown) date) unknown) (unknown) (no (unknown) (unknown) S/P ACL (units (unkno wn) date) reconstruction unknown) (06/08/21) (unknown) (no (unknown) (unknown) She is not noted (units (unknown) date) any significant unknown) difference in her right lower quadrant/right (unknown) (no (unknown) (unknown) Signed By: (units (unk nown) date) unknown) (unknown) (no (unknown) (unknown) Smoking Status: (units (unknown) date) Never smoker unknown) (unknown) (no (unknown) (unknown) Surgical History (units (unknown) date) (Reviewed unknown) 03/17/22 @ 08:13 by William Hay RN) (unknown) (no (unknown) (unknown) TOA (units (unkno wn) date) (tubo-ovarian unknown) abscess) (06/28/21) (unknown) (no (unknown) (unknown) This note may (units ( unknown) date) have been all or unknown) partially generated using voice recognition (unknown) (no (unknown) (unknown) Tobacco + (units (unkn own) date) Substance Use unknown) (unknown) (no (unknown) (unknown) Tobacco Status (units (unknown) date) unknown) (unknown) (no (unknown) (unknown) US pelvic (units (unkn own) date) complete 1 Week unknown) G89.29 - Other chronic pain, N70.11 - Chronic (unknown) (no (unknown) (unknown) Visit Reasons: (units (unknown) date) F/U Chronic unknown) Pelvic Pain (unknown) (no (unknown) (unknown) Vitals (units (unkno wn) date) unknown) (unknown) (no (unknown) (unknown) Weight 150 lb 1 (units (unknown) date) oz unknown) (unknown) (no (unknown) (unknown) as the cause of (units (unknown) date) diseases unknown) classified elsewhere, N76.0 - Acute vaginitis, R10.2 (unknown) (no (unknown) (unknown) clindamycin HCl (units (unknown) date) 150 mg PO DAILY unknown) 30 caps 0RF (unknown) (no (unknown) (unknown) clindamycin HCl (units (unknown) date) 150 mg capsule unknown) 150 mg PO DAILY #30 caps 03/17/22 [Rx Confirmed (unknown) (no (unknown) (unknown) doxycycline (units (un known) date) Adverse Reaction unknown) (Intermediate, Verified 03/17/22 08:14) (unknown) (no (unknown) (unknown) evaluation/treat (units (unknown) date) ment of her unknown) RLQ/pelvic pain. (unknown) (no (unknown) (unknown) have occurred. (units (unknown) date) If there are any unknown) questions, please contact the Medical Records (unknown) (no (unknown) (unknown) lower quadrant (units (unknown) date) pain unknown) (unknown) (no (unknown) (unknown) may occur. (units (unk nown) date) Occasional unknown) wrong-word or 'sound-alike' substitutions may have (unknown) (no (unknown) (unknown) occurred due to (units (unknown) date) the inherent unknown) limitations of voice recognition software. Please (unknown) (no (unknown) (unknown) oxycodone 5 mg (units (unknown) date) tablet 5 mg PO unknown) Q6H PRN pain #10 tabs 02/24/22 [Rx Confirmed (unknown) (no (unknown) (unknown) promethazine 25 (units (unknown) date) mg tablet 25 mg unknown) PO Q6H PRN 11/30/21 [History Confirmed 03/17/22] (unknown) (no (unknown) (unknown) rash (units (unkno wn) date) unknown) (unknown) (no (unknown) (unknown) read the note (units ( unknown) date) carefully and unknown) recognize, using context, where these substitutions (unknown) (no (unknown) (unknown) salpingitis, (units (u nknown) date) N70.93 - unknown) Salpingitis and oophoritis, unspecified, R10.31 - Right (unknown) (no (unknown) (unknown) sided pelvic (units (u nknown) date) pain. In addition unknown) her bacterial vaginosis which initially improved (unknown) (no (unknown) (unknown) software. (units (unkn own) date) Although every unknown) effort is made to edit content, financial solutions advisor errors (unknown) (no (unknown) (unknown) vomitt (units (unkno wn) date) unknown) (unknown) (no (unknown) (unknown) with therapy has (units (unknown) date) returned. Patient unknown) wishes to proceed with definitive Result panel 14 (unknown) (no (unknown) (unknown) (no value) (units (unk nown) date) unknown) (unknown) (no (unknown) (unknown) 08:12 (units (unkno wn) date) unknown) (unknown) (no (unknown) (unknown) 03/17/22 (units (unkno wn) date) unknown) (unknown) (no (unknown) (unknown) 03/17/22] (units (unkn own) date) unknown) (unknown) (no (unknown) (unknown) [id number] (units (unkno wn) date) unknown) (unknown) (no (unknown) (unknown) Acne (-2016) (units (u nknown) date) unknown) (unknown) (no (unknown) (unknown) Affect: normal (units (unknown) date) affect unknown) (unknown) (no (unknown) (unknown) Affirm Vaginosis (units (unknown) date) [place] Bacterial unknown) Today B96.89 - Other specified bacterial agents (unknown) (no (unknown) (unknown) Age/Sex: 21 / F (units (unknown) date) Date of Service: unknown) (unknown) (no (unknown) (unknown) Allergies (units (unkn own) date) unknown) (unknown) (no (unknown) (unknown) [place], [place] (units ( unknown) date) [id number] unknown) (unknown) (no (unknown) (unknown) Anesthesia (units (unk nown) date) unknown) (unknown) (no (unknown) (unknown) Appearance: (units (un known) date) grossly normal unknown) (unknown) (no (unknown) (unknown) Assessment + (units (u nknown) date) Plan unknown) (unknown) (no (unknown) (unknown) Attending Dr: (units ( unknown) date) Sushant Bryant unknown) (unknown) (no (unknown) (unknown) Attitude: (units (unkn own) date) cooperative unknown) (unknown) (no (unknown) (unknown) BMI 26.2 (units (unkno wn) date) unknown) (unknown) (no (unknown) (unknown) BP 130/70 (units (unkn own) date) unknown) (unknown) (no (unknown) (unknown) Blood Pressure (units (unknown) date) Location Rt unknown) brachial (unknown) (no (unknown) (unknown) Chief Complaint (units (unknown) date) unknown) (unknown) (no (unknown) (unknown) Chief Complaint: (units (unknown) date) Right lower unknown) quadrant pain, recurrent bacterial vaginosis (unknown) (no (unknown) (unknown) Chlamydia (units (unkn own) date) infection () unknown) (unknown) (no (unknown) (unknown) Conjunctivae: (units ( unknown) date) conjunctivae unknown) normal (unknown) (no (unknown) (unknown) Const (units (unkno wn) date) unknown) (unknown) (no (unknown) (unknown) : 2000 (units (unknown) date) Acct:[id number] unknown) (unknown) (no (unknown) (unknown) Dept at (units (unkno wn) date) . unknown) (unknown) (no (unknown) (unknown) Details: (units (unkno wn) date) unknown) (unknown) (no (unknown) (unknown) Documented By: (units (unknown) date) Sushant Bryant unknownFlip MOORE 03/17/22 0810 (unknown) (no (unknown) (unknown) Draft (units (unkno wn) date) unknown) (unknown) (no (unknown) (unknown) EOM: EOM intact (units (unknown) date) bilaterally unknown) (unknown) (no (unknown) (unknown) Ears: hearing (units ( unknown) date) grossly normal unknown) bilaterally (unknown) (no (unknown) (unknown) Effort + (units (unkno wn) date) Inspection: unknown) normal respiratory effort and able to speak in complete (unknown) (no (unknown) (unknown) Endometriosis (units ( unknown) date) (-2020) unknown) (unknown) (no (unknown) (unknown) Exam (units (unkno wn) date) unknown) (unknown) (no (unknown) (unknown) External Female (units (unknown) date) Exam: normal unknown) external appearance and normal appearance of the (unknown) (no (unknown) (unknown) Eyes (units (unkno wn) date) unknown) (unknown) (no (unknown) (unknown) Face and sinus: (units (unknown) date) face symmetric unknown) (unknown) (no (unknown) (unknown) [facility]) (unknown) (no (unknown) (unknown) GI (units (unkno wn) date) unknown) (unknown) (no (unknown) (unknown) (units (unkno wn) date) unknown) (unknown) (no (unknown) (unknown) General: (units (unkno wn) date) appearance unknown) normal, both eyes and all related structures (unknown) (no (unknown) (unknown) General: (units (unkno wn) date) cooperative, unknown) comfortable and no acute distress (unknown) (no (unknown) (unknown) Ade returns (units ( unknown) date) today after 2 unknown) week therapy with levofloxacin and metronidazole. (unknown) (no (unknown) (unknown) Gynecology Visit (units (unknown) date) unknown) (unknown) (no (unknown) (unknown) HENMT (units (unkno wn) date) unknown) (unknown) (no (unknown) (unknown) HPI (units (unkno wn) date) unknown) (unknown) (no (unknown) (unknown) Head: normal to (units (unknown) date) inspection, unknown) normocephalic and atraumatic (unknown) (no (unknown) (unknown) Heavy menstrual (units (unknown) date) period (-2019) unknown) (unknown) (no (unknown) (unknown) Height 5 ft 3.5 (units (unknown) date) in unknown) (unknown) (no (unknown) (unknown) Inspection: (units (un known) date) normal to unknown) inspection (unknown) (no (unknown) (unknown) Intake Note: (units (u nknown) date) unknown) (unknown) (no (unknown) (unknown) Intake performed (units (unknown) date) by: William Hay unknown) (unknown) (no (unknown) (unknown) Intake (units (unkno wn) date) unknown) (unknown) (no (unknown) (unknown) Intake- Clincial (units (unknown) date) Staff unknown) (unknown) (no (unknown) (unknown) Irregular (units (unkn own) date) menstrual cycle unknown) () (unknown) (no (unknown) (unknown) Is last (units (unkno wn) date) menstrual period unknown) known: No (unknown) (no (unknown) (unknown) Judgment: (units (unkn own) date) judgment good unknown) (unknown) (no (unknown) (unknown) Last Menstural (units (unknown) date) Cycle + Details unknown) (unknown) (no (unknown) (unknown) Loc: [facility] (units (unkno wn) date) unknown) (unknown) (no (unknown) (unknown) Lymphangioma (units (u nknown) date) unknown) (unknown) (no (unknown) (unknown) Medical History (units (unknown) date) (Reviewed unknown) 03/17/22 @ 08:13 by William Hay RN) (unknown) (no (unknown) (unknown) Medications (units (un known) date) unknown) (unknown) (no (unknown) (unknown) Medications: (units (u nknown) date) unknown) (unknown) (no (unknown) (unknown) Mental Status: (units (unknown) date) mental status unknown) grossly normal (unknown) (no (unknown) (unknown) Mood: congruent (units (unknown) date) mood unknown) (unknown) (no (unknown) (unknown) Neck (units (unkno wn) date) unknown) (unknown) (no (unknown) (unknown) Neck: normal (units (u nknown) date) visual inspection unknown) (unknown) (no (unknown) (unknown) New (units (unkno wn) date) unknown) (unknown) (no (unknown) (unknown) Nutritional (units (un known) date) Appearance: unknown) average body habitus (unknown) (no (unknown) (unknown) Opioids - (units (unkn own) date) Morphine unknown) Analogues Allergy (Intermediate, Verified 03/17/22 08:14) (unknown) (no (unknown) (unknown) Orders (units (unkno wn) date) unknown) (unknown) (no (unknown) (unknown) Orders: (units (unkno wn) date) unknown) (unknown) (no (unknown) (unknown) Orientation: (units (u nknown) date) alert and unknown) oriented x3 (unknown) (no (unknown) (unknown) Other Menstrual (units (unknown) date) Period: Other unknown) (unknown) (no (unknown) (unknown) Ovarian cyst (units (u nknown) date) unknown) (unknown) (no (unknown) (unknown) PFSH (units (unkno wn) date) unknown) (unknown) (no (unknown) (unknown) Painful (units (unkno wn) date) menstrual periods unknown) () (unknown) (no (unknown) (unknown) Palpation: soft, (units (unknown) date) no unknown) hepatosplenomegal y, 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 unknown) States she is still having pain (unknown) (no (unknown) (unknown) ROS Narrative (units ( unknown) date) unknown) (unknown) (no (unknown) (unknown) ROS Narrative: (units (unknown) date) unknown) (unknown) (no (unknown) (unknown) ROS (units (unkno wn) date) unknown) (unknown) (no (unknown) (unknown) Reason For Visit (units (unknown) date) unknown) (unknown) (no (unknown) (unknown) Resp (units (unkno wn) date) unknown) (unknown) (no (unknown) (unknown) S/P ACL (units (unkno wn) date) reconstruction unknown) (-06/08/21) (unknown) (no (unknown) (unknown) Sclera: sclerae (units (unknown) date) normal unknown) (unknown) (no (unknown) (unknown) She is not noted (units (unknown) date) any significant unknown) difference in her right lower quadrant/right (unknown) (no (unknown) (unknown) Signed By: (units (unk nown) date) unknown) (unknown) (no (unknown) (unknown) Smoking Status: (units (unknown) date) Never smoker unknown) (unknown) (no (unknown) (unknown) [place] Exam - (units (unknown) date) Vagina: normal unknown) appearance of the vagina and abnormal vaginal (unknown) (no (unknown) (unknown) Speech and (units (unk nown) date) Movement: speech unknown) and movement normal (unknown) (no (unknown) (unknown) Surgical History (units (unknown) date) (Reviewed unknown) 03/17/22 @ 08:13 by William Hay RN) (unknown) (no (unknown) (unknown) TOA (units (unkno wn) date) (tubo-ovarian unknown) abscess) (06/28/21) (unknown) (no (unknown) (unknown) This note may (units ( unknown) date) have been all or unknown) partially generated using voice recognition (unknown) (no (unknown) (unknown) Thought Content: (units (unknown) date) normal unknown) (unknown) (no (unknown) (unknown) Thought Process: (units (unknown) date) normal unknown) (unknown) (no (unknown) (unknown) Tobacco + (units (unkn own) date) Substance Use unknown) (unknown) (no (unknown) (unknown) Tobacco Status (units (unknown) date) unknown) (unknown) (no (unknown) (unknown) US pelvic (units (unkn own) date) complete 1 Week unknown) G89.29 - Other chronic pain, N70.11 - Chronic (unknown) (no (unknown) (unknown) Urethra: normal (units (unknown) date) appearance of the unknown) urethra (unknown) (no (unknown) (unknown) Visit Reasons: (units (unknown) date) F/U Chronic unknown) Pelvic Pain (unknown) (no (unknown) (unknown) Vitals (units (unkno wn) date) unknown) (unknown) (no (unknown) (unknown) Weight 150 lb 1 (units (unknown) date) oz unknown) (unknown) (no (unknown) (unknown) after completing (units (unknown) date) her antibiotics. unknown) Patient is sexually active but her partner (unknown) (no (unknown) (unknown) as the cause of (units (unknown) date) diseases unknown) classified elsewhere, N76.0 - Acute vaginitis, R10.2 (unknown) (no (unknown) (unknown) clindamycin HCl (units (unknown) date) 150 mg PO DAILY unknown) 30 caps 0RF (unknown) (no (unknown) (unknown) clindamycin HCl (units (unknown) date) 150 mg capsule unknown) 150 mg PO DAILY #30 caps 03/17/22 [Rx Confirmed (unknown) (no (unknown) (unknown) discharge (units (unkn own) date) (Thick, white, + unknown) amine odor; AFFIRM submitted.) (unknown) (no (unknown) (unknown) doxycycline (units (un known) date) Adverse Reaction unknown) (Intermediate, Verified 03/17/22 08:14) (unknown) (no (unknown) (unknown) evaluation/treat (units (unknown) date) ment of her unknown) RLQ/pelvic pain. In addition her bacterial (unknown) (no (unknown) (unknown) have occurred. (units (unknown) date) If there are any unknown) questions, please contact the Medical Records (unknown) (no (unknown) (unknown) lower quadrant (units (unknown) date) pain unknown) (unknown) (no (unknown) (unknown) may occur. (units (unk nown) date) Occasional unknown) wrong-word or 'sound-alike' substitutions may have (unknown) (no (unknown) (unknown) occurred due to (units (unknown) date) the inherent unknown) limitations of voice recognition software. Please (unknown) (no (unknown) (unknown) oxycodone 5 mg (units (unknown) date) tablet 5 mg PO unknown) Q6H PRN pain #10 tabs 02/24/22 [Rx Confirmed (unknown) (no (unknown) (unknown) promethazine 25 (units (unknown) date) mg tablet 25 mg unknown) PO Q6H PRN 11/30/21 [History Confirmed 03/17/22] (unknown) (no (unknown) (unknown) rash (units (unkno wn) date) unknown) (unknown) (no (unknown) (unknown) read the note (units ( unknown) date) carefully and unknown) recognize, using context, where these substitutions (unknown) (no (unknown) (unknown) salpingitis, (units (u nknown) date) N70.93 - unknown) Salpingitis and oophoritis, unspecified, 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 Patient unknown) wishes to proceed with definitive (unknown) (no (unknown) (unknown) software. (units (unkn own) date) Although every unknown) effort is made to edit content, financial solutions advisor errors (unknown) (no (unknown) (unknown) treated for BV. (units (unknown) date) unknown) (unknown) (no (unknown) (unknown) urethra (units (unkno wn) date) unknown) (unknown) (no (unknown) (unknown) uses condoms (units (u nknown) date) with each sexual unknown) encounter. Patient's partners has never been (unknown) (no (unknown) (unknown) vaginosis which (units (unknown) date) initially unknown) improved with therapy has returned within a few days (unknown) (no (unknown) (unknown) vomitt (units (unkno wn) date) unknown) Result panel 15 (unknown) (no (unknown) (unknown) (no value) (units (unk nown) date) unknown) (unknown) (no (unknown) (unknown) 08:12 (units (unkno wn) date) unknown) (unknown) (no (unknown) (unknown) 03/17/22 (units (unkno wn) date) unknown) (unknown) (no (unknown) (unknown) 03/17/22] (units (unkn own) date) unknown) (unknown) (no (unknown) (unknown) [id number] (units (unkno wn) date) unknown) (unknown) (no (unknown) (unknown) Acne (-2016) (units (u nknown) date) unknown) (unknown) (no (unknown) (unknown) Affect: normal (units (unknown) date) affect unknown) (unknown) (no (unknown) (unknown) Affirm Vaginosis (units (unknown) date) [place] Bacterial unknown) Today B96.89 - Other specified bacterial agents (unknown) (no (unknown) (unknown) Age/Sex: 21 / F (units (unknown) date) Date of Service: unknown) (unknown) (no (unknown) (unknown) Allergies (units (unkn own) date) unknown) (unknown) (no (unknown) (unknown) [place], [place] (units ( unknown) date) [id number] unknown) (unknown) (no (unknown) (unknown) Anesthesia (units (unk nown) date) unknown) (unknown) (no (unknown) (unknown) Appearance: (units (un known) date) grossly normal unknown) (unknown) (no (unknown) (unknown) Assessment + (units (u nknown) date) Plan unknown) (unknown) (no (unknown) (unknown) Attending Dr: (units ( unknown) date) Sushant Bryant unknown) (unknown) (no (unknown) (unknown) Attitude: (units (unkn own) date) cooperative unknown) (unknown) (no (unknown) (unknown) BMI 26.2 (units (unkno wn) date) unknown) (unknown) (no (unknown) (unknown) BP 130/70 (units (unkn own) date) unknown) (unknown) (no (unknown) (unknown) Bimanual Exam- (units ( unknown) date) Adnexa, other: unknown) tender (R>>L), mass (Very tender fullness, right (unknown) (no (unknown) (unknown) Bimanual Exam- (units (unknown) date) Vagina + Uterus: unknown) No tender (unknown) (no (unknown) (unknown) Blood Pressure (units (unknown) date) Location Rt unknown) brachial (unknown) (no (unknown) (unknown) Chief Complaint (units (unknown) date) unknown) (unknown) (no (unknown) (unknown) Chief Complaint: (units (unknown) date) Right lower unknown) quadrant pain, recurrent bacterial vaginosis (unknown) (no (unknown) (unknown) Chlamydia (units (unkn own) date) infection () unknown) (unknown) (no (unknown) (unknown) Conjunctivae: (units ( unknown) date) conjunctivae unknown) normal (unknown) (no (unknown) (unknown) Const (units (unkno wn) date) unknown) (unknown) (no (unknown) (unknown) : 2000 (units (unknown) date) Acct:[id number] unknown) (unknown) (no (unknown) (unknown) Dept at (units (unkno wn) date) . unknown) (unknown) (no (unknown) (unknown) Details: (units (unkno wn) date) unknown) (unknown) (no (unknown) (unknown) Documented By: (units (unknown) date) Sushant Bryant unknown) 03/17/22 0810 (unknown) (no (unknown) (unknown) Draft (units (unkno wn) date) unknown) (unknown) (no (unknown) (unknown) EOM: EOM intact (units (unknown) date) bilaterally unknown) (unknown) (no (unknown) (unknown) Ears: hearing (units ( unknown) date) grossly normal unknown) bilaterally (unknown) (no (unknown) (unknown) Effort + (units (unkno wn) date) Inspection: unknown) normal respiratory effort and able to speak in complete (unknown) (no (unknown) (unknown) Endometriosis (units ( unknown) date) () unknown) (unknown) (no (unknown) (unknown) Exam (units (unkno wn) date) unknown) (unknown) (no (unknown) (unknown) External Female (units (unknown) date) Exam: normal unknown) external appearance, normal appearance of the (unknown) (no (unknown) (unknown) Eyes (units (unkno wn) date) unknown) (unknown) (no (unknown) (unknown) Face and sinus: (units (unknown) date) face symmetric unknown) (unknown) (no (unknown) (unknown) [facility]) (unknown) (no (unknown) (unknown) GI (units (unkno wn) date) unknown) (unknown) (no (unknown) (unknown) (units (unkno wn) date) unknown) (unknown) (no (unknown) (unknown) General: (units (unkno wn) date) appearance unknown) normal, both eyes and all related structures (unknown) (no (unknown) (unknown) General: (units (unkno wn) date) cooperative, unknown) comfortable and no acute distress (unknown) (no (unknown) (unknown) Ade returns (units ( unknown) date) today after 2 unknown) week therapy with levofloxacin and metronidazole. (unknown) (no (unknown) (unknown) Gynecology Visit (units (unknown) date) unknown) (unknown) (no (unknown) (unknown) HENMT (units (unkno wn) date) unknown) (unknown) (no (unknown) (unknown) HPI (units (unkno wn) date) unknown) (unknown) (no (unknown) (unknown) Head: normal to (units (unknown) date) inspection, unknown) normocephalic and atraumatic (unknown) (no (unknown) (unknown) Heavy menstrual (units (unknown) date) period (-2019) unknown) (unknown) (no (unknown) (unknown) Height 5 ft 3.5 (units (unknown) date) in unknown) (unknown) (no (unknown) (unknown) Inspection: (units (un known) date) normal to unknown) inspection (unknown) (no (unknown) (unknown) Intake Note: (units (u nknown) date) unknown) (unknown) (no (unknown) (unknown) Intake performed (units (unknown) date) by: William Hay unknown) (unknown) (no (unknown) (unknown) Intake (units (unkno wn) date) unknown) (unknown) (no (unknown) (unknown) Intake- Clincial (units (unknown) date) Staff unknown) (unknown) (no (unknown) (unknown) Irregular (units (unkn own) date) menstrual cycle unknown) (-2020) (unknown) (no (unknown) (unknown) Is last (units (unkno wn) date) menstrual period unknown) known: No (unknown) (no (unknown) (unknown) Judgment: (units (unkn own) date) judgment good unknown) (unknown) (no (unknown) (unknown) Last Menstural (units (unknown) date) Cycle + Details unknown) (unknown) (no (unknown) (unknown) Loc: [facility] (units (unkno wn) date) unknown) (unknown) (no (unknown) (unknown) Lymphangioma (units (u nknown) date) unknown) (unknown) (no (unknown) (unknown) Medical History (units (unknown) date) (Reviewed unknown) 03/17/22 @ 08:13 by William Hay RN) (unknown) (no (unknown) (unknown) Medications (units (un known) date) unknown) (unknown) (no (unknown) (unknown) Medications: (units (u nknown) date) unknown) (unknown) (no (unknown) (unknown) Mental Status: (units (unknown) date) mental status unknown) grossly normal (unknown) (no (unknown) (unknown) Mood: congruent (units (unknown) date) mood unknown) (unknown) (no (unknown) (unknown) Neck (units (unkno wn) date) unknown) (unknown) (no (unknown) (unknown) Neck: normal (units (u nknown) date) visual inspection unknown) (unknown) (no (unknown) (unknown) New (units (unkno wn) date) unknown) (unknown) (no (unknown) (unknown) Nutritional (units (un known) date) Appearance: unknown) average body habitus (unknown) (no (unknown) (unknown) OB/External + (units ( unknown) date) Speculum: unknown) cervical os open (unknown) (no (unknown) (unknown) Opioids - (units (unkn own) date) Morphine unknown) Analogues Allergy (Intermediate, Verified 03/17/22 08:14) (unknown) (no (unknown) (unknown) Orders (units (unkno wn) date) unknown) (unknown) (no (unknown) (unknown) Orders: (units (unkno wn) date) unknown) (unknown) (no (unknown) (unknown) Orientation: (units (u nknown) date) alert and unknown) oriented x3 (unknown) (no (unknown) (unknown) Other Menstrual (units (unknown) date) Period: Other unknown) (unknown) (no (unknown) (unknown) Ovarian cyst (units (u nknown) date) unknown) (unknown) (no (unknown) (unknown) PFSH (units (unkno wn) date) unknown) (unknown) (no (unknown) (unknown) Painful (units (unkno wn) date) menstrual periods unknown) () (unknown) (no (unknown) (unknown) Palpation: soft, (units (unknown) date) no unknown) hepatosplenomegal y, 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 unknown) States she is still having pain (unknown) (no (unknown) (unknown) ROS Narrative (units ( unknown) date) unknown) (unknown) (no (unknown) (unknown) ROS Narrative: (units (unknown) date) unknown) (unknown) (no (unknown) (unknown) ROS (units (unkno wn) date) unknown) (unknown) (no (unknown) (unknown) Reason For Visit (units (unknown) date) unknown) (unknown) (no (unknown) (unknown) Recto-Vaginal: (units (unknown) date) cul-de-sac unknown) tenderness and no cul-de-sac nodularlity (unknown) (no (unknown) (unknown) Resp (units (unkno wn) date) unknown) (unknown) (no (unknown) (unknown) S/P ACL (units (unkno wn) date) reconstruction unknown) (-06/08/21) (unknown) (no (unknown) (unknown) Sclera: sclerae (units (unknown) date) normal unknown) (unknown) (no (unknown) (unknown) She is not noted (units (unknown) date) any significant unknown) difference in her right lower quadrant/right (unknown) (no (unknown) (unknown) Signed By: (units (unk nown) date) unknown) (unknown) (no (unknown) (unknown) Smoking Status: (units (unknown) date) Never smoker unknown) (unknown) (no (unknown) (unknown) Speculum Exam - (units (unknown) date) Cervix: normal unknown) appearance of the cervix, cervical os open and (unknown) (no (unknown) (unknown) Speculum Exam - (units (unknown) date) Vagina: normal unknown) appearance of the vagina, abnormal vaginal (unknown) (no (unknown) (unknown) Speculum Exam: (units (unknown) date) cervical os open unknown) (unknown) (no (unknown) (unknown) Speech and (units (unk nown) date) Movement: speech unknown) and movement normal (unknown) (no (unknown) (unknown) Surgical History (units (unknown) date) (Reviewed unknown) 03/17/22 @ 08:13 by William Hay RN) (unknown) (no (unknown) (unknown) TOA (units (unkno wn) date) (tubo-ovarian unknown) abscess) (-06/28/21) (unknown) (no (unknown) (unknown) This note may (units ( unknown) date) have been all or unknown) partially generated using voice recognition (unknown) (no (unknown) (unknown) Thought Content: (units (unknown) date) normal unknown) (unknown) (no (unknown) (unknown) Thought Process: (units (unknown) date) normal unknown) (unknown) (no (unknown) (unknown) Tobacco + (units (unkn own) date) Substance Use unknown) (unknown) (no (unknown) (unknown) Tobacco Status (units (unknown) date) unknown) (unknown) (no (unknown) (unknown) US pelvic (units (unkn own) date) complete 1 Week unknown) G89.29 - Other chronic pain, N70.11 - Chronic (unknown) (no (unknown) (unknown) Urethra: normal (units (unknown) date) appearance of the unknown) urethra and tender (unknown) (no (unknown) (unknown) Visit Reasons: (units (unknown) date) F/U Chronic unknown) Pelvic Pain (unknown) (no (unknown) (unknown) Vitals (units (unkno wn) date) unknown) (unknown) (no (unknown) (unknown) Weight 150 lb 1 (units (unknown) date) oz unknown) (unknown) (no (unknown) (unknown) adnexa), (units (unkno wn) date) cul-de-sac unknown) tenderness and No cul-de-sac nodularity (unknown) (no (unknown) (unknown) after completing (units (unknown) date) her antibiotics. unknown) Patient is sexually active but her partner (unknown) (no (unknown) (unknown) as the cause of (units (unknown) date) diseases unknown) classified elsewhere, N76.0 - Acute vaginitis, R10.2 (unknown) (no (unknown) (unknown) clindamycin HCl (units (unknown) date) 150 mg PO DAILY unknown) 30 caps 0RF (unknown) (no (unknown) (unknown) clindamycin HCl (units (unknown) date) 150 mg capsule unknown) 150 mg PO DAILY #30 caps 03/17/22 [Rx Confirmed (unknown) (no (unknown) (unknown) discharge (units (unkn own) date) (Thick, white, + unknown) amine odor; AFFIRM submitted.) and no lesions (unknown) (no (unknown) (unknown) doxycycline (units (un known) date) Adverse Reaction unknown) (Intermediate, Verified 03/17/22 08:14) (unknown) (no (unknown) (unknown) evaluation/treat (units (unknown) date) ment of her unknown) RLQ/pelvic pain. In addition her bacterial (unknown) (no (unknown) (unknown) have occurred. (units (unknown) date) If there are any unknown) questions, please contact the Medical Records (unknown) (no (unknown) (unknown) lower quadrant (units (unknown) date) pain unknown) (unknown) (no (unknown) (unknown) may occur. (units (unk nown) date) Occasional unknown) wrong-word or 'sound-alike' substitutions may have (unknown) (no (unknown) (unknown) nontender (units (unkn own) date) unknown) (unknown) (no (unknown) (unknown) occurred due to (units (unknown) date) the inherent unknown) limitations of voice recognition software. Please (unknown) (no (unknown) (unknown) oxycodone 5 mg (units (unknown) date) tablet 5 mg PO unknown) Q6H PRN pain #10 tabs 02/24/22 [Rx Confirmed (unknown) (no (unknown) (unknown) promethazine 25 (units (unknown) date) mg tablet 25 mg unknown) PO Q6H PRN 11/30/21 [History Confirmed 03/17/22] (unknown) (no (unknown) (unknown) rash (units (unkno wn) date) unknown) (unknown) (no (unknown) (unknown) read the note (units ( unknown) date) carefully and unknown) recognize, using context, where these substitutions (unknown) (no (unknown) (unknown) salpingitis, (units (u nknown) date) N70.93 - unknown) Salpingitis and oophoritis, unspecified, 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 Patient unknown) wishes to proceed with definitive (unknown) (no (unknown) (unknown) software. (units (unkn own) date) Although every unknown) effort is made to edit content, financial solutions advisor errors (unknown) (no (unknown) (unknown) treated for BV. (units (unknown) date) unknown) (unknown) (no (unknown) (unknown) urethra and (units (un known) date) tender unknown) (unknown) (no (unknown) (unknown) uses condoms (units (u nknown) date) with each sexual unknown) encounter. 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) (unknown) (no (unknown) (unknown) (3) Chronic (units (un known) date) right lower unknown) quadrant pain: (unknown) (no (unknown) (unknown) 08:12 (units (unkno wn) date) unknown) (unknown) (no (unknown) (unknown) 03/17/22 (units (unkno wn) date) unknown) (unknown) (no (unknown) (unknown) 03/17/22] (units (unkn own) date) unknown) (unknown) (no (unknown) (unknown) [id number] (units (unkno wn) date) unknown) (unknown) (no (unknown) (unknown) Acne (-2016) (units (u nknown) date) unknown) (unknown) (no (unknown) (unknown) Affect: normal (units (unknown) date) affect unknown) (unknown) (no (unknown) (unknown) Affirm Vaginosis (units (unknown) date) [place] Bacterial unknown) Today B96.89 - Other specified bacterial agents (unknown) (no (unknown) (unknown) Age/Sex: 21 / F (units (unknown) date) Date of Service: unknown) (unknown) (no (unknown) (unknown) Allergies (units (unkn own) date) unknown) (unknown) (no (unknown) (unknown) [place], [place] (units ( unknown) date) [id number] unknown) (unknown) (no (unknown) (unknown) Anesthesia (units (unk nown) date) unknown) (unknown) (no (unknown) (unknown) Appearance: (units (un known) date) grossly normal unknown) (unknown) (no (unknown) (unknown) Assessment + (units (u nknown) date) Plan unknown) (unknown) (no (unknown) (unknown) Attending Dr: (units ( unknown) date) Sushant Bryant unknown) (unknown) (no (unknown) (unknown) Attitude: (units (unkn own) date) cooperative unknown) (unknown) (no (unknown) (unknown) BMI 26.2 (units (unkno wn) date) unknown) (unknown) (no (unknown) (unknown) BP 130/70 (units (unkn own) date) unknown) (unknown) (no (unknown) (unknown) Bimanual Exam- (units ( unknown) date) Adnexa, other: unknown) tender (R>>L), mass (Very tender fullness, right (unknown) (no (unknown) (unknown) Bimanual Exam- (units (unknown) date) Vagina + Uterus: unknown) No tender (unknown) (no (unknown) (unknown) Blood Pressure (units (unknown) date) Location Rt unknown) brachial (unknown) (no (unknown) (unknown) Chief Complaint (units (unknown) date) unknown) (unknown) (no (unknown) (unknown) Chief Complaint: (units (unknown) date) Right lower unknown) quadrant pain, recurrent bacterial vaginosis (unknown) (no (unknown) (unknown) Chlamydia (units (unkn own) date) infection () unknown) (unknown) (no (unknown) (unknown) Conjunctivae: (units ( unknown) date) conjunctivae unknown) normal (unknown) (no (unknown) (unknown) Const (units (unkno wn) date) unknown) (unknown) (no (unknown) (unknown) : 2000 (units (unknown) date) Acct:[id number] unknown) (unknown) (no (unknown) (unknown) Dept at (units (unkno wn) date) . unknown) (unknown) (no (unknown) (unknown) Details: (units (unkno wn) date) unknown) (unknown) (no (unknown) (unknown) Documented By: (units (unknown) date) Sushant Bryant unknown) 03/17/22 0810 (unknown) (no (unknown) (unknown) Draft (units (unkno wn) date) unknown) (unknown) (no (unknown) (unknown) Due to the (units (unkn own) date) patient's unknown) persistent pain, she wants to move forward with laparoscopy (unknown) (no (unknown) (unknown) EOM: EOM intact (units (unknown) date) bilaterally unknown) (unknown) (no (unknown) (unknown) Ears: hearing (units ( unknown) date) grossly normal unknown) bilaterally (unknown) (no (unknown) (unknown) Effort + (units (unkno wn) date) Inspection: unknown) normal respiratory effort and able to speak in complete (unknown) (no (unknown) (unknown) Endometriosis (units ( unknown) date) (-2020) unknown) (unknown) (no (unknown) (unknown) Exam (units (unkno wn) date) unknown) (unknown) (no (unknown) (unknown) External Female (units (unknown) date) Exam: normal unknown) external appearance, normal appearance of the (unknown) (no (unknown) (unknown) Eyes (units (unkno wn) date) unknown) (unknown) (no (unknown) (unknown) Face and sinus: (units (unknown) date) face symmetric unknown) (unknown) (no (unknown) (unknown) [facility]) (unknown) (no (unknown) (unknown) GI (units (unkno wn) date) unknown) (unknown) (no (unknown) (unknown) (units (unkno wn) date) unknown) (unknown) (no (unknown) (unknown) General: (units (unkno wn) date) appearance unknown) normal, both eyes and all related structures (unknown) (no (unknown) (unknown) General: (units (unkno wn) date) cooperative, unknown) comfortable and no acute distress (unknown) (no (unknown) (unknown) Ade returns (units ( unknown) date) today after 2 unknown) week therapy with levofloxacin and metronidazole. (unknown) (no (unknown) (unknown) Gynecology Visit (units (unknown) date) unknown) (unknown) (no (unknown) (unknown) HENMT (units (unkno wn) date) unknown) (unknown) (no (unknown) (unknown) HPI (units (unkno wn) date) unknown) (unknown) (no (unknown) (unknown) Head: normal to (units (unknown) date) inspection, unknown) normocephalic and atraumatic (unknown) (no (unknown) (unknown) Heavy menstrual (units (unknown) date) period (2019) unknown) (unknown) (no (unknown) (unknown) Height 5 ft 3.5 (units (unknown) date) in unknown) (unknown) (no (unknown) (unknown) Inspection: (units (un known) date) normal to unknown) inspection (unknown) (no (unknown) (unknown) Intake Note: (units (u nknown) date) unknown) (unknown) (no (unknown) (unknown) Intake performed (units (unknown) date) by: William Hay unknown) (unknown) (no (unknown) (unknown) Intake (units (unkno wn) date) unknown) (unknown) (no (unknown) (unknown) Intake- Clincial (units (unknown) date) Staff unknown) (unknown) (no (unknown) (unknown) Irregular (units (unkn own) date) menstrual cycle unknown) () (unknown) (no (unknown) (unknown) Is last (units (unkno wn) date) menstrual period unknown) known: No (unknown) (no (unknown) (unknown) Judgment: (units (unkn own) date) judgment good unknown) (unknown) (no (unknown) (unknown) Last Menstural (units (unknown) date) Cycle + Details unknown) (unknown) (no (unknown) (unknown) Loc: [facility] (units (unkno wn) date) unknown) (unknown) (no (unknown) (unknown) Lymphangioma (units (u nknown) date) unknown) (unknown) (no (unknown) (unknown) Medical History (units (unknown) date) (Reviewed unknown) 03/17/22 @ 08:13 by William Hay RN) (unknown) (no (unknown) (unknown) Medications (units (un known) date) unknown) (unknown) (no (unknown) (unknown) Medications: (units (u nknown) date) unknown) (unknown) (no (unknown) (unknown) Mental Status: (units (unknown) date) mental status unknown) grossly normal (unknown) (no (unknown) (unknown) Mood: congruent (units (unknown) date) mood unknown) (unknown) (no (unknown) (unknown) Neck (units (unkno wn) date) unknown) (unknown) (no (unknown) (unknown) Neck: normal (units (u nknown) date) visual inspection unknown) (unknown) (no (unknown) (unknown) New (units (unkno wn) date) unknown) (unknown) (no (unknown) (unknown) Nutritional (units (un known) date) Appearance: unknown) average body habitus (unknown) (no (unknown) (unknown) OB/External + (units ( unknown) date) Speculum: unknown) cervical os open (unknown) (no (unknown) (unknown) Opioids - (units (unkn own) date) Morphine unknown) Analogues Allergy (Intermediate, Verified 03/17/22 08:14) (unknown) (no (unknown) (unknown) Orders (units (unkno wn) date) unknown) (unknown) (no (unknown) (unknown) Orders: (units (unkno wn) date) unknown) (unknown) (no (unknown) (unknown) Orientation: (units (u nknown) date) alert and unknown) oriented x3 (unknown) (no (unknown) (unknown) Other Menstrual (units (unknown) date) Period: Other unknown) (unknown) (no (unknown) (unknown) Ovarian cyst (units (u nknown) date) unknown) (unknown) (no (unknown) (unknown) PFSH (units (unkno wn) date) unknown) (unknown) (no (unknown) (unknown) Painful (units (unkno wn) date) menstrual periods unknown) () (unknown) (no (unknown) (unknown) Palpation: soft, (units (unknown) date) no unknown) hepatosplenomegal y, 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 (unknown) (no (unknown) (unknown) Patient: (units (unkno wn) date) Ade Matthews unknown) MR#: [id number] (unknown) (no (unknown) (unknown) Pelvic and (units (unk nown) date) perineal pain unknown) (unknown) (no (unknown) (unknown) Plan (units (unkno wn) date) unknown) (unknown) (no (unknown) (unknown) Position Sitting (units (unknown) date) unknown) (unknown) (no (unknown) (unknown) Problem-specific (units (unknown) date) ROS positives unknown) included with the HPI (unknown) (no (unknown) (unknown) Psych (units (unkno wn) date) unknown) (unknown) (no (unknown) (unknown) Pt here for FU (units (unknown) date) pelvic pain. unknown) States she is still having pain (unknown) (no (unknown) (unknown) ROS Narrative (units ( unknown) date) unknown) (unknown) (no (unknown) (unknown) ROS Narrative: (units (unknown) date) unknown) (unknown) (no (unknown) (unknown) ROS (units (unkno wn) date) unknown) (unknown) (no (unknown) (unknown) Reason For Visit (units (unknown) date) unknown) (unknown) (no (unknown) (unknown) Recto-Vaginal: (units (unknown) date) cul-de-sac unknown) tenderness and no cul-de-sac nodularlity (unknown) (no (unknown) (unknown) Resp (units (unkno wn) date) unknown) (unknown) (no (unknown) (unknown) S/P ACL (units (unkno wn) date) reconstruction unknown) (-06/08/21) (unknown) (no (unknown) (unknown) Sclera: sclerae (units (unknown) date) normal unknown) (unknown) (no (unknown) (unknown) She is not noted (units (unknown) date) any significant unknown) difference in her right lower quadrant/right (unknown) (no (unknown) (unknown) Signed By: (units (unk nown) date) unknown) (unknown) (no (unknown) (unknown) Smoking Status: (units (unknown) date) Never smoker unknown) (unknown) (no (unknown) (unknown) Speculum Exam - (units (unknown) date) Cervix: normal unknown) appearance of the cervix, cervical os open and (unknown) (no (unknown) (unknown) Speculum Exam - (units (unknown) date) Vagina: normal unknown) appearance of the vagina, abnormal vaginal (unknown) (no (unknown) (unknown) Speculum Exam: (units (unknown) date) cervical os open unknown) (unknown) (no (unknown) (unknown) Speech and (units (unk nown) date) Movement: speech unknown) and movement normal (unknown) (no (unknown) (unknown) Status: Acute (units ( unknown) date) unknown) (unknown) (no (unknown) (unknown) Surgical History (units (unknown) date) (Reviewed unknown) 03/17/22 @ 08:13 by William Hay RN) (unknown) (no (unknown) (unknown) TOA (units (unkno wn) date) (tubo-ovarian unknown) abscess) (-06/28/21) (unknown) (no (unknown) (unknown) The patient's (units ( unknown) date) recurrent unknown) bacterial vaginosis (unknown) (no (unknown) (unknown) The patient's (units ( unknown) date) right lower unknown) quadrant/right hemipelvis pain is unchanged after 2 (unknown) (no (unknown) (unknown) This note may (units ( unknown) date) have been all or unknown) partially generated using voice recognition (unknown) (no (unknown) (unknown) Thought Content: (units (unknown) date) normal unknown) (unknown) (no (unknown) (unknown) Thought Process: (units (unknown) date) normal unknown) (unknown) (no (unknown) (unknown) Tobacco + (units (unkn own) date) Substance Use unknown) (unknown) (no (unknown) (unknown) Tobacco Status (units (unknown) date) unknown) (unknown) (no (unknown) (unknown) US pelvic (units (unkn own) date) complete 1 Week unknown) G89.29 - Other chronic pain, N70.11 - Chronic (unknown) (no (unknown) (unknown) Urethra: normal (units (unknown) date) appearance of the unknown) urethra and tender (unknown) (no (unknown) (unknown) Visit Reasons: (units (unknown) date) F/U Chronic unknown) Pelvic Pain (unknown) (no (unknown) (unknown) Vitals (units (unkno wn) date) unknown) (unknown) (no (unknown) (unknown) Weight 150 lb 1 (units (unknown) date) oz unknown) (unknown) (no (unknown) (unknown) abnormal, RSO may (units (unknown) date) be necessary to unknown) give her the best possible chance of resolving (unknown) (no (unknown) (unknown) adnexa), (units (unkno wn) date) cul-de-sac unknown) tenderness and No cul-de-sac nodularity (unknown) (no (unknown) (unknown) after completing (units (unknown) date) her antibiotics. unknown) Patient is sexually active but her partner (unknown) (no (unknown) (unknown) also made aware (units (unknown) date) that no assurance unknown) can be made that her pain will be resolved (unknown) (no (unknown) (unknown) also understands (units (unknown) date) that if tube and unknown) ovary are severely scarred or otherwise (unknown) (no (unknown) (unknown) and possible (units (u nknown) date) right unknown) salpingo-oophorec fawn to further evaluate and treat her RLQ, (unknown) (no (unknown) (unknown) as the cause of (units (unknown) date) diseases unknown) classified elsewhere, N76.0 - Acute vaginitis, R10.2 (unknown) (no (unknown) (unknown) clindamycin HCl (units (unknown) date) 150 mg PO DAILY unknown) 30 caps 0RF (unknown) (no (unknown) (unknown) clindamycin HCl (units (unknown) date) 150 mg capsule unknown) 150 mg PO DAILY #30 caps 03/17/22 [Rx Confirmed (unknown) (no (unknown) (unknown) discharge (units (unkn own) date) (Thick, white, + unknown) amine odor; AFFIRM submitted.) and no lesions (unknown) (no (unknown) (unknown) doxycycline (units (un known) date) Adverse Reaction unknown) (Intermediate, Verified 03/17/22 08:14) (unknown) (no (unknown) (unknown) evaluation/treat (units (unknown) date) ment of her unknown) RLQ/pelvic pain. In addition her bacterial (unknown) (no (unknown) (unknown) have occurred. (units (unknown) date) If there are any unknown) questions, please contact the Medical Records (unknown) (no (unknown) (unknown) her chronic (units (un known) date) right lower unknown) quadrant pain following her TOA. The results of the (unknown) (no (unknown) (unknown) infection which (units (unknown) date) she apparently unknown) had. (unknown) (no (unknown) (unknown) lower quadrant (units (unknown) date) pain unknown) (unknown) (no (unknown) (unknown) may occur. (units (unk nown) date) Occasional unknown) wrong-word or 'sound-alike' substitutions may have (unknown) (no (unknown) (unknown) nontender (units (unkn own) date) unknown) (unknown) (no (unknown) (unknown) occurred due to (units (unknown) date) the inherent unknown) limitations of voice recognition software. Please (unknown) (no (unknown) (unknown) ordered pelvic (units (unknown) date) ultrasound will unknown) also have a bearing on surgical plan and patient (unknown) (no (unknown) (unknown) oxycodone 5 mg (units (unknown) date) tablet 5 mg PO unknown) Q6H PRN pain #10 tabs 02/24/22 [Rx Confirmed (unknown) (no (unknown) (unknown) post-TOA pain. (units (unknown) date) It is hoped that unknown) her ovary and tube can be preserved but she (unknown) (no (unknown) (unknown) promethazine 25 (units (unknown) date) mg tablet 25 mg unknown) PO Q6H PRN 11/30/21 [History Confirmed 03/17/22] (unknown) (no (unknown) (unknown) rash (units (unkno wn) date) unknown) (unknown) (no (unknown) (unknown) read the note (units ( unknown) date) carefully and unknown) recognize, using context, where these substitutions (unknown) (no (unknown) (unknown) residual mass or (units (unknown) date) post inflammatory unknown) phlegmon involving the right adnexa. Pelvic (unknown) (no (unknown) (unknown) salpingitis, (units (u nknown) date) N70.93 - unknown) Salpingitis and oophoritis, unspecified, 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 Patient unknown) wishes to proceed with definitive (unknown) (no (unknown) (unknown) software. (units (unkn own) date) Although every unknown) effort is made to edit content, financial solutions advisor errors (unknown) (no (unknown) (unknown) treated for BV. (units (unknown) date) unknown) (unknown) (no (unknown) (unknown) ultrasound (units (unk nown) date) ordered and will unknown) contact the patient with results when available. (unknown) (no (unknown) (unknown) urethra and (units (un known) date) tender unknown) (unknown) (no (unknown) (unknown) uses condoms (units (u nknown) date) with each sexual unknown) encounter. Patient's partners has never been (unknown) (no (unknown) (unknown) vaginosis which (units (unknown) date) initially unknown) improved with therapy has returned within a few days (unknown) (no (unknown) (unknown) vomitt (units (unkno wn) date) unknown) (unknown) (no (unknown) (unknown) weeks of (units (unkno wn) date) antibiotic unknown) therapy and her pelvic exam today suggests there may be (unknown) (no (unknown) (unknown) with RSO or (units (un known) date) other surgical unknown) procedures, especially following a severe pelvic Result panel 17 (unknown) (no (unknown) (unknown) (no value) (units (unk nown) date) unknown) (unknown) (no (unknown) (unknown) (1) Bacterial (units ( unknown) date) vaginosis: unknown) (unknown) (no (unknown) (unknown) (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) (unknown) (no (unknown) (unknown) (3) Chronic (units (un known) date) right lower unknown) quadrant pain: (unknown) (no (unknown) (unknown) 08:12 (units (unkno wn) date) unknown) (unknown) (no (unknown) (unknown) 03/17/22 (units (unkno wn) date) unknown) (unknown) (no (unknown) (unknown) 03/17/22] (units (unkn own) date) unknown) (unknown) (no (unknown) (unknown) [id number] (units (unkno wn) date) unknown) (unknown) (no (unknown) (unknown) Acne (-2016) (units (u nknown) date) unknown) (unknown) (no (unknown) (unknown) Affect: normal (units (unknown) date) affect unknown) (unknown) (no (unknown) (unknown) Affirm Vaginosis (units (unknown) date) [place] Bacterial unknown) Today B96.89 - Other specified bacterial agents (unknown) (no (unknown) (unknown) Age/Sex: 21 / F (units (unknown) date) Date of Service: unknown) (unknown) (no (unknown) (unknown) Allergies (units (unkn own) date) unknown) (unknown) (no (unknown) (unknown) [place], [place] (units ( unknown) date) [id number] unknown) (unknown) (no (unknown) (unknown) Anesthesia (units (unk nown) date) unknown) (unknown) (no (unknown) (unknown) Appearance: (units (un known) date) grossly normal unknown) (unknown) (no (unknown) (unknown) Assessment + (units (u nknown) date) Plan unknown) (unknown) (no (unknown) (unknown) Attending Dr: (units ( unknown) date) Sushant Bryant unknown) (unknown) (no (unknown) (unknown) Attitude: (units (unkn own) date) cooperative unknown) (unknown) (no (unknown) (unknown) BMI 26.2 (units (unkno wn) date) unknown) (unknown) (no (unknown) (unknown) BP 130/70 (units (unkn own) date) unknown) (unknown) (no (unknown) (unknown) Bimanual Exam- (units ( unknown) date) Adnexa, other: unknown) tender (R>>L), mass (Very tender fullness, right (unknown) (no (unknown) (unknown) Bimanual Exam- (units (unknown) date) Vagina + Uterus: unknown) No tender (unknown) (no (unknown) (unknown) Blood Pressure (units (unknown) date) Location Rt unknown) brachial (unknown) (no (unknown) (unknown) Chief Complaint (units (unknown) date) unknown) (unknown) (no (unknown) (unknown) Chief Complaint: (units (unknown) date) Right lower unknown) quadrant pain, recurrent bacterial vaginosis (unknown) (no (unknown) (unknown) Chlamydia (units (unkn own) date) infection () unknown) (unknown) (no (unknown) (unknown) Conjunctivae: (units ( unknown) date) conjunctivae unknown) normal (unknown) (no (unknown) (unknown) Const (units (unkno wn) date) unknown) (unknown) (no (unknown) (unknown) : 2000 (units (unknown) date) Acct:[id number] unknown) (unknown) (no (unknown) (unknown) Dept at (units (unkno wn) date) . unknown) (unknown) (no (unknown) (unknown) Details: (units (unkno wn) date) unknown) (unknown) (no (unknown) (unknown) Documented By: (units (unknown) date) Sushant Bryant unknown) 03/17/22 0810 (unknown) (no (unknown) (unknown) Draft (units (unkno wn) date) unknown) (unknown) (no (unknown) (unknown) Due to the (units (unkn own) date) patient's unknown) persistent pain, she wants to move forward with laparoscopy (unknown) (no (unknown) (unknown) EOM: EOM intact (units (unknown) date) bilaterally unknown) (unknown) (no (unknown) (unknown) Ears: hearing (units ( unknown) date) grossly normal unknown) bilaterally (unknown) (no (unknown) (unknown) Effort + (units (unkno wn) date) Inspection: unknown) normal respiratory effort and able to speak in complete (unknown) (no (unknown) (unknown) Endometriosis (units ( unknown) date) () unknown) (unknown) (no (unknown) (unknown) Exam (units (unkno wn) date) unknown) (unknown) (no (unknown) (unknown) External Female (units (unknown) date) Exam: normal unknown) external appearance, normal appearance of the (unknown) (no (unknown) (unknown) Eyes (units (unkno wn) date) unknown) (unknown) (no (unknown) (unknown) Face and sinus: (units (unknown) date) face symmetric unknown) (unknown) (no (unknown) (unknown) [facility]) (unknown) (no (unknown) (unknown) GI (units (unkno wn) date) unknown) (unknown) (no (unknown) (unknown) (units (unkno wn) date) unknown) (unknown) (no (unknown) (unknown) General: (units (unkno wn) date) appearance unknown) normal, both eyes and all related structures (unknown) (no (unknown) (unknown) General: (units (unkno wn) date) cooperative, unknown) comfortable and no acute distress (unknown) (no (unknown) (unknown) Ade returns (units ( unknown) date) today after 2 unknown) week therapy with levofloxacin and metronidazole. (unknown) (no (unknown) (unknown) Gynecology Visit (units (unknown) date) unknown) (unknown) (no (unknown) (unknown) HENMT (units (unkno wn) date) unknown) (unknown) (no (unknown) (unknown) HPI (units (unkno wn) date) unknown) (unknown) (no (unknown) (unknown) Head: normal to (units (unknown) date) inspection, unknown) normocephalic and atraumatic (unknown) (no (unknown) (unknown) Heavy menstrual (units (unknown) date) period (-2019) unknown) (unknown) (no (unknown) (unknown) Height 5 ft 3.5 (units (unknown) date) in unknown) (unknown) (no (unknown) (unknown) Inspection: (units (un known) date) normal to unknown) inspection (unknown) (no (unknown) (unknown) Intake Note: (units (u nknown) date) unknown) (unknown) (no (unknown) (unknown) Intake performed (units (unknown) date) by: William Hay unknown) (unknown) (no (unknown) (unknown) Intake (units (unkno wn) date) unknown) (unknown) (no (unknown) (unknown) Intake- Clincial (units (unknown) date) Staff unknown) (unknown) (no (unknown) (unknown) Irregular (units (unkn own) date) menstrual cycle unknown) () (unknown) (no (unknown) (unknown) Is last (units (unkno wn) date) menstrual period unknown) known: No (unknown) (no (unknown) (unknown) Judgment: (units (unkn own) date) judgment good unknown) (unknown) (no (unknown) (unknown) Last Menstural (units (unknown) date) Cycle + Details unknown) (unknown) (no (unknown) (unknown) Loc: [facility] (units (unkno wn) date) unknown) (unknown) (no (unknown) (unknown) Lymphangioma (units (u nknown) date) unknown) (unknown) (no (unknown) (unknown) Medical History (units (unknown) date) (Reviewed unknown) 03/17/22 @ 08:13 by William Hay RN) (unknown) (no (unknown) (unknown) Medications (units (un known) date) unknown) (unknown) (no (unknown) (unknown) Medications: (units (u nknown) date) unknown) (unknown) (no (unknown) (unknown) Mental Status: (units (unknown) date) mental status unknown) grossly normal (unknown) (no (unknown) (unknown) Mood: congruent (units (unknown) date) mood unknown) (unknown) (no (unknown) (unknown) Neck (units (unkno wn) date) unknown) (unknown) (no (unknown) (unknown) Neck: normal (units (u nknown) date) visual inspection unknown) (unknown) (no (unknown) (unknown) New (units (unkno wn) date) unknown) (unknown) (no (unknown) (unknown) Nutritional (units (un known) date) Appearance: unknown) average body habitus (unknown) (no (unknown) (unknown) OB/External + (units ( unknown) date) Speculum: unknown) cervical os open (unknown) (no (unknown) (unknown) Opioids - (units (unkn own) date) Morphine unknown) Analogues Allergy (Intermediate, Verified 03/17/22 08:14) (unknown) (no (unknown) (unknown) Orders (units (unkno wn) date) unknown) (unknown) (no (unknown) (unknown) Orders: (units (unkno wn) date) unknown) (unknown) (no (unknown) (unknown) Orientation: (units (u nknown) date) alert and unknown) oriented x3 (unknown) (no (unknown) (unknown) Other Menstrual (units (unknown) date) Period: Other unknown) (unknown) (no (unknown) (unknown) Ovarian cyst (units (u nknown) date) unknown) (unknown) (no (unknown) (unknown) PFSH (units (unkno wn) date) unknown) (unknown) (no (unknown) (unknown) Painful (units (unkno wn) date) menstrual periods unknown) (-2020) (unknown) (no (unknown) (unknown) Palpation: soft, (units (unknown) date) no unknown) hepatosplenomegal y, 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 (unknown) (no (unknown) (unknown) Patient: (units (unkno wn) date) Ade Matthews unknown) MR#: [id number] (unknown) (no (unknown) (unknown) Pelvic and (units (unk nown) date) perineal pain unknown) (unknown) (no (unknown) (unknown) Plan (units (unkno wn) date) unknown) (unknown) (no (unknown) (unknown) Position Sitting (units (unknown) date) unknown) (unknown) (no (unknown) (unknown) Problem-specific (units (unknown) date) ROS positives unknown) included with the HPI (unknown) (no (unknown) (unknown) Psych (units (unkno wn) date) unknown) (unknown) (no (unknown) (unknown) Pt here for FU (units (unknown) date) pelvic pain. unknown) States she is still having pain (unknown) (no (unknown) (unknown) ROS Narrative (units ( unknown) date) unknown) (unknown) (no (unknown) (unknown) ROS Narrative: (units (unknown) date) unknown) (unknown) (no (unknown) (unknown) ROS (units (unkno wn) date) unknown) (unknown) (no (unknown) (unknown) Reason For Visit (units (unknown) date) unknown) (unknown) (no (unknown) (unknown) Recto-Vaginal: (units (unknown) date) cul-de-sac unknown) tenderness and no cul-de-sac nodularlity (unknown) (no (unknown) (unknown) Resp (units (unkno wn) date) unknown) (unknown) (no (unknown) (unknown) S/P ACL (units (unkno wn) date) reconstruction unknown) (06/08/21) (unknown) (no (unknown) (unknown) Sclera: sclerae (units (unknown) date) normal unknown) (unknown) (no (unknown) (unknown) She is not noted (units (unknown) date) any significant unknown) difference in her right lower quadrant/right (unknown) (no (unknown) (unknown) Signed By: (units (unk nown) date) unknown) (unknown) (no (unknown) (unknown) Smoking Status: (units (unknown) date) Never smoker unknown) (unknown) (no (unknown) (unknown) Speculum Exam - (units (unknown) date) Cervix: normal unknown) appearance of the cervix, cervical os open and (unknown) (no (unknown) (unknown) Speculum Exam - (units (unknown) date) Vagina: normal unknown) appearance of the vagina, abnormal vaginal (unknown) (no (unknown) (unknown) Speculum Exam: (units (unknown) date) cervical os open unknown) (unknown) (no (unknown) (unknown) Speech and (units (unk n) date) Movement: speech unknown) and movement normal (unknown) (no (unknown) (unknown) Status: Acute (units ( unknown) date) unknown) (unknown) (no (unknown) (unknown) Surgical History (units (unknown) date) (Reviewed unknown) 03/17/22 @ 08:13 by William Hay RN) (unknown) (no (unknown) (unknown) TOA (units (unkno wn) date) (tubo-ovarian unknown) abscess) (06/28/21) (unknown) (no (unknown) (unknown) The patient's (units ( unknown) date) recurrent unknown) bacterial vaginosis is also problematic for her and (unknown) (no (unknown) (unknown) The patient's (units ( unknown) date) right lower unknown) quadrant/right hemipelvis pain is unchanged after 2 (unknown) (no (unknown) (unknown) This note may (units ( unknown) date) have been all or unknown) partially generated using voice recognition (unknown) (no (unknown) (unknown) Thought Content: (units (unknown) date) normal unknown) (unknown) (no (unknown) (unknown) Thought Process: (units (unknown) date) normal unknown) (unknown) (no (unknown) (unknown) Tobacco + (units (unkn own) date) Substance Use unknown) (unknown) (no (unknown) (unknown) Tobacco Status (units (unknown) date) unknown) (unknown) (no (unknown) (unknown) US pelvic (units (unkn own) date) complete 1 Week unknown) G89.29 - Other chronic pain, N70.11 - Chronic (unknown) (no (unknown) (unknown) Urethra: normal (units (unknown) date) appearance of the unknown) urethra and tender (unknown) (no (unknown) (unknown) Visit Reasons: (units (unknown) date) F/U Chronic unknown) Pelvic Pain (unknown) (no (unknown) (unknown) Vitals (units (unkno wn) date) unknown) (unknown) (no (unknown) (unknown) Weight 150 lb 1 (units (unknown) date) oz unknown) (unknown) (no (unknown) (unknown) abnormal, RSO may (units (unknown) date) be necessary to unknown) give her the best possible chance of resolving (unknown) (no (unknown) (unknown) adnexa), (units (unkno wn) date) cul-de-sac unknown) tenderness and No cul-de-sac nodularity (unknown) (no (unknown) (unknown) after completing (units (unknown) date) her antibiotics. unknown) Patient is sexually active but her partner (unknown) (no (unknown) (unknown) also made aware (units (unknown) date) that no assurance unknown) can be made that her pain will be resolved (unknown) (no (unknown) (unknown) also understands (units (unknown) date) that if tube and unknown) ovary are severely scarred or otherwise (unknown) (no (unknown) (unknown) and possible (units (u nknown) date) right unknown) salpingo-oophorec fawn to further evaluate and treat her RLQ, (unknown) (no (unknown) (unknown) as the cause of (units (unknown) date) diseases unknown) classified elsewhere, N76.0 - Acute vaginitis, R10.2 (unknown) (no (unknown) (unknown) clindamycin HCl (units (unknown) date) 150 mg PO DAILY unknown) 30 caps 0RF (unknown) (no (unknown) (unknown) clindamycin HCl (units (unknown) date) 150 mg capsule unknown) 150 mg PO DAILY #30 caps 03/17/22 [Rx Confirmed (unknown) (no (unknown) (unknown) discharge (units (unkn own) date) (Thick, white, + unknown) amine odor; AFFIRM submitted.) and no lesions (unknown) (no (unknown) (unknown) doxycycline (units (un known) date) Adverse Reaction unknown) (Intermediate, Verified 03/17/22 08:14) (unknown) (no (unknown) (unknown) evaluation/treat (units (unknown) date) ment of her unknown) RLQ/pelvic pain. In addition her bacterial (unknown) (no (unknown) (unknown) have occurred. (units (unknown) date) If there are any unknown) questions, please contact the Medical Records (unknown) (no (unknown) (unknown) her chronic (units (un known) date) right lower unknown) quadrant pain following her TOA. The results of the (unknown) (no (unknown) (unknown) infection which (units (unknown) date) she apparently unknown) had. (unknown) (no (unknown) (unknown) lower quadrant (units (unknown) date) pain unknown) (unknown) (no (unknown) (unknown) may occur. (units (unk nown) date) Occasional unknown) wrong-word or 'sound-alike' substitutions may have (unknown) (no (unknown) (unknown) nontender (units (unkn own) date) unknown) (unknown) (no (unknown) (unknown) occurred due to (units (unknown) date) the inherent unknown) limitations of voice recognition software. Please (unknown) (no (unknown) (unknown) ordered pelvic (units (unknown) date) ultrasound will unknown) also have a bearing on surgical plan and patient (unknown) (no (unknown) (unknown) oxycodone 5 mg (units (unknown) date) tablet 5 mg PO unknown) Q6H PRN pain #10 tabs 02/24/22 [Rx Confirmed (unknown) (no (unknown) (unknown) post-TOA pain. (units (unknown) date) It is hoped that unknown) her ovary and tube can be preserved but she (unknown) (no (unknown) (unknown) promethazine 25 (units (unknown) date) mg tablet 25 mg unknown) PO Q6H PRN 11/30/21 [History Confirmed 03/17/22] (unknown) (no (unknown) (unknown) rash (units (unkno wn) date) unknown) (unknown) (no (unknown) (unknown) read the note (units ( unknown) date) carefully and unknown) recognize, using context, where these substitutions (unknown) (no (unknown) (unknown) residual mass or (units (unknown) date) post inflammatory unknown) phlegmon involving the right adnexa. Pelvic (unknown) (no (unknown) (unknown) salpingitis, (units (u nknown) date) N70.93 - unknown) Salpingitis and oophoritis, unspecified, 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 Patient unknown) wishes to proceed with definitive (unknown) (no (unknown) (unknown) software. (units (unkn own) date) Although every unknown) effort is made to edit content, financial solutions advisor errors (unknown) (no (unknown) (unknown) treated for BV. (units (unknown) date) unknown) (unknown) (no (unknown) (unknown) ultrasound (units (unk nown) date) ordered and will unknown) contact the patient with results when available. (unknown) (no (unknown) (unknown) urethra and (units (un known) date) tender unknown) (unknown) (no (unknown) (unknown) uses condoms (units (u nknown) date) with each sexual unknown) encounter. Patient's partners has never been (unknown) (no (unknown) (unknown) vaginosis which (units (unknown) date) initially unknown) improved with therapy has returned within a few days (unknown) (no (unknown) (unknown) vomitt (units (unkno wn) date) unknown) (unknown) (no (unknown) (unknown) weeks of (units (unkno wn) date) antibiotic unknown) therapy and her pelvic exam today suggests there may be (unknown) (no (unknown) (unknown) with RSO or (units (un known) date) other surgical unknown) procedures, especially following a severe pelvic Result panel 18 (unknown) (no (unknown) (unknown) (no value) (units (unk nown) date) unknown) (unknown) (no (unknown) (unknown) (1) Bacterial (units ( unknown) date) vaginosis: unknown) (unknown) (no (unknown) (unknown) (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) (unknown) (no (unknown) (unknown) (3) Chronic (units (un known) date) right lower unknown) quadrant pain: (unknown) (no (unknown) (unknown) 08:12 (units (unkno wn) date) unknown) (unknown) (no (unknown) (unknown) 03/17/22 1313 (units ( unknown) date) unknown) (unknown) (no (unknown) (unknown) 03/17/22 (units (unkno wn) date) unknown) (unknown) (no (unknown) (unknown) 03/17/22] (units (unkn own) date) unknown) (unknown) (no (unknown) (unknown) [id number] (units (unkno wn) date) unknown) (unknown) (no (unknown) (unknown) A copy of this (units (unknown) date) note will be unknown) forwarded to her primary care provider. (unknown) (no (unknown) (unknown) Acne (-2016) (units (u nknown) date) unknown) (unknown) (no (unknown) (unknown) Affect: normal (units (unknown) date) affect unknown) (unknown) (no (unknown) (unknown) Affirm Vaginosis (units (unknown) date) [place] Bacterial unknown) Today B96.89 - Other specified bacterial agents (unknown) (no (unknown) (unknown) Age/Sex: 21 / F (units (unknown) date) Date of Service: unknown) (unknown) (no (unknown) (unknown) Allergies (units (unkn own) date) unknown) (unknown) (no (unknown) (unknown) [place], [place] (units ( unknown) date) [id number] unknown) (unknown) (no (unknown) (unknown) Anesthesia (units (unk nown) date) unknown) (unknown) (no (unknown) (unknown) Appearance: (units (un known) date) grossly normal unknown) (unknown) (no (unknown) (unknown) Assessment + (units (u nknown) date) Plan unknown) (unknown) (no (unknown) (unknown) Attending Dr: (units ( unknown) date) Sushant Bryant unknown) (unknown) (no (unknown) (unknown) Attitude: (units (unkn own) date) cooperative unknown) (unknown) (no (unknown) (unknown) BMI 26.2 (units (unkno wn) date) unknown) (unknown) (no (unknown) (unknown) BP 130/70 (units (unkn own) date) unknown) (unknown) (no (unknown) (unknown) Bimanual Exam- (units ( unknown) date) Adnexa, other: unknown) tender (R>>L), mass (Very tender fullness, right (unknown) (no (unknown) (unknown) Bimanual Exam- (units (unknown) date) Vagina + Uterus: unknown) No tender (unknown) (no (unknown) (unknown) Blood Pressure (units (unknown) date) Location Rt unknown) brachial (unknown) (no (unknown) (unknown) Chief Complaint (units (unknown) date) unknown) (unknown) (no (unknown) (unknown) Chief Complaint: (units (unknown) date) Right lower unknown) quadrant pain, recurrent bacterial vaginosis (unknown) (no (unknown) (unknown) Chlamydia (units (unkn own) date) infection () unknown) (unknown) (no (unknown) (unknown) Conjunctivae: (units ( unknown) date) conjunctivae unknown) normal (unknown) (no (unknown) (unknown) Const (units (unkno wn) date) unknown) (unknown) (no (unknown) (unknown) Counseling and (units (unknown) date) educating the unknown) patient/family/ca regiver: 10 (unknown) (no (unknown) (unknown) : 2000 (units (unknown) date) Acct:[id number] unknown) (unknown) (no (unknown) (unknown) Dept at (units (unkno wn) date) . unknown) (unknown) (no (unknown) (unknown) Details: (units (unkno wn) date) unknown) (unknown) (no (unknown) (unknown) Documented By: (units (unknown) date) Sushant Bryant unknown) 03/17/22 0810 (unknown) (no (unknown) (unknown) Documenting (units (un known) date) clinical unknown) information in EHR/Medical record: 10 (unknown) (no (unknown) (unknown) Due to the (units (unkn own) date) patient's unknown) persistent pain, she wants to move forward with laparoscopy (unknown) (no (unknown) (unknown) EOM: EOM intact (units (unknown) date) bilaterally unknown) (unknown) (no (unknown) (unknown) Ears: hearing (units ( unknown) date) grossly normal unknown) bilaterally (unknown) (no (unknown) (unknown) Effort + (units (unkno wn) date) Inspection: unknown) normal respiratory effort and able to speak in complete (unknown) (no (unknown) (unknown) Endometriosis (units ( unknown) date) () unknown) (unknown) (no (unknown) (unknown) Exam (units (unkno wn) date) unknown) (unknown) (no (unknown) (unknown) External Female (units (unknown) date) Exam: normal unknown) external appearance, normal appearance of the (unknown) (no (unknown) (unknown) Eyes (units (unkno wn) date) unknown) (unknown) (no (unknown) (unknown) Face and sinus: (units (unknown) date) face symmetric unknown) (unknown) (no (unknown) (unknown) [facility]) (unknown) (no (unknown) (unknown) Follow-up in 4 (units (unknown) date) weeks or as unknown) needed. (unknown) (no (unknown) (unknown) GI (units (unkno wn) date) unknown) (unknown) (no (unknown) (unknown) (units (unkno wn) date) unknown) (unknown) (no (unknown) (unknown) General: (units (unkno wn) date) appearance unknown) normal, both eyes and all related structures (unknown) (no (unknown) (unknown) General: (units (unkno wn) date) cooperative, unknown) comfortable and no acute distress (unknown) (no (unknown) (unknown) Ade returns (units ( unknown) date) today after 2 unknown) week therapy with levofloxacin and metronidazole. (unknown) (no (unknown) (unknown) Gynecology Visit (units (unknown) date) unknown) (unknown) (no (unknown) (unknown) HENMT (units (unkno wn) date) unknown) (unknown) (no (unknown) (unknown) HPI (units (unkno wn) date) unknown) (unknown) (no (unknown) (unknown) Head: normal to (units (unknown) date) inspection, unknown) normocephalic and atraumatic (unknown) (no (unknown) (unknown) Heavy menstrual (units (unknown) date) period (2019) unknown) (unknown) (no (unknown) (unknown) Height 5 ft 3.5 (units (unknown) date) in unknown) (unknown) (no (unknown) (unknown) Inspection: (units (un known) date) normal to unknown) inspection (unknown) (no (unknown) (unknown) Intake Note: (units (u nknown) date) unknown) (unknown) (no (unknown) (unknown) Intake performed (units (unknown) date) by: William Hay unknown) (unknown) (no (unknown) (unknown) Intake (units (unkno wn) date) unknown) (unknown) (no (unknown) (unknown) Intake- Clincial (units (unknown) date) Staff unknown) (unknown) (no (unknown) (unknown) Irregular (units (unkn own) date) menstrual cycle unknown) () (unknown) (no (unknown) (unknown) Is last (units (unkno wn) date) menstrual period unknown) known: No (unknown) (no (unknown) (unknown) Judgment: (units (unkn own) date) judgment good unknown) (unknown) (no (unknown) (unknown) Last Menstural (units (unknown) date) Cycle + Details unknown) (unknown) (no (unknown) (unknown) Loc: [facility] (units (unkno wn) date) unknown) (unknown) (no (unknown) (unknown) Lymphangioma (units (u nknown) date) unknown) (unknown) (no (unknown) (unknown) Medical History (units (unknown) date) (Reviewed unknown) 03/17/22 @ 08:13 by William Hay RN) (unknown) (no (unknown) (unknown) Medications (units (un known) date) unknown) (unknown) (no (unknown) (unknown) Medications: (units (u nknown) date) unknown) (unknown) (no (unknown) (unknown) Mental Status: (units (unknown) date) mental status unknown) grossly normal (unknown) (no (unknown) (unknown) Mood: congruent (units (unknown) date) mood unknown) (unknown) (no (unknown) (unknown) Neck (units (unkno wn) date) unknown) (unknown) (no (unknown) (unknown) Neck: normal (units (u nknown) date) visual inspection unknown) (unknown) (no (unknown) (unknown) New (units (unkno wn) date) unknown) (unknown) (no (unknown) (unknown) Nutritional (units (un known) date) Appearance: unknown) average body habitus (unknown) (no (unknown) (unknown) OB/External + (units ( unknown) date) Speculum: unknown) cervical os open (unknown) (no (unknown) (unknown) Obtaining and/or (units (unknown) date) reviewing unknown) separately obtained history: 5 (unknown) (no (unknown) (unknown) Opioids - (units (unkn own) date) Morphine unknown) Analogues Allergy (Intermediate, Verified 03/17/22 08:14) (unknown) (no (unknown) (unknown) Ordering (units (unkno wn) date) medications, unknown) tests, or procedures: 5 (unknown) (no (unknown) (unknown) Orders (units (unkno wn) date) unknown) (unknown) (no (unknown) (unknown) Orders: (units (unkno wn) date) unknown) (unknown) (no (unknown) (unknown) Orientation: (units (u nknown) date) alert and unknown) oriented x3 (unknown) (no (unknown) (unknown) Other Menstrual (units (unknown) date) Period: Other unknown) (unknown) (no (unknown) (unknown) Ovarian cyst (units (u nknown) date) unknown) (unknown) (no (unknown) (unknown) PFSH (units (unkno wn) date) unknown) (unknown) (no (unknown) (unknown) Painful (units (unkno wn) date) menstrual periods unknown) () (unknown) (no (unknown) (unknown) Palpation: soft, (units (unknown) date) no unknown) hepatosplenomegal y, 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 (unknown) (no (unknown) (unknown) Patient: (units (unkno wn) date) Ade Matthews unknown) MR#: [id number] (unknown) (no (unknown) (unknown) Pelvic and (units (unk now) date) perineal pain unknown) (unknown) (no (unknown) (unknown) Performing a (units (u nknown) date) medically unknown) appropriate exam and/or evaluation: 5 (unknown) (no (unknown) (unknown) Plan (units (unkno wn) date) unknown) (unknown) (no (unknown) (unknown) Position Sitting (units (unknown) date) unknown) (unknown) (no (unknown) (unknown) Preparing to see (units (unknown) date) the patient, unknown) i.e., chart review, review of tests: 5 (unknown) (no (unknown) (unknown) Problem-specific (units (unknown) date) ROS positives unknown) included with the HPI (unknown) (no (unknown) (unknown) Psych (units (unkno wn) date) unknown) (unknown) (no (unknown) (unknown) Pt here for FU (units (unknown) date) pelvic pain. unknown) States she is still having pain (unknown) (no (unknown) (unknown) ROS Narrative (units ( unknown) date) unknown) (unknown) (no (unknown) (unknown) ROS Narrative: (units (unknown) date) unknown) (unknown) (no (unknown) (unknown) ROS (units (unkno wn) date) unknown) (unknown) (no (unknown) (unknown) Reason For Visit (units (unknown) date) unknown) (unknown) (no (unknown) (unknown) Recto-Vaginal: (units (unknown) date) cul-de-sac unknown) tenderness and no cul-de-sac nodularlity (unknown) (no (unknown) (unknown) Resp (units (unkno wn) date) unknown) (unknown) (no (unknown) (unknown) S/P ACL (units (unkno wn) date) reconstruction unknown) (-06/08/21) (unknown) (no (unknown) (unknown) Sclera: sclerae (units (unknown) date) normal unknown) (unknown) (no (unknown) (unknown) She is not noted (units (unknown) date) any significant unknown) difference in her right lower quadrant/right (unknown) (no (unknown) (unknown) Signed By: (units (unk nown) date) <Electronically unknown) signed by Sushant Bryant MD> (unknown) (no (unknown) (unknown) Signed (units (unkno wn) date) unknown) (unknown) (no (unknown) (unknown) Smoking Status: (units (unknown) date) Never smoker unknown) (unknown) (no (unknown) (unknown) Speculum Exam - (units (unknown) date) Cervix: normal unknown) appearance of the cervix, cervical os open and (unknown) (no (unknown) (unknown) Speculum Exam - (units (unknown) date) Vagina: normal unknown) appearance of the vagina, abnormal vaginal (unknown) (no (unknown) (unknown) Speculum Exam: (units (unknown) date) cervical os open unknown) (unknown) (no (unknown) (unknown) Speech and (units (unk nown) date) Movement: speech unknown) and movement normal (unknown) (no (unknown) (unknown) Status: Acute (units ( unknown) date) unknown) (unknown) (no (unknown) (unknown) Surgical History (units (unknown) date) (Reviewed unknown) 03/17/22 @ 08:13 by William Hay RN) (unknown) (no (unknown) (unknown) TOA (units (unkno wn) date) (tubo-ovarian unknown) abscess) (-06/28/21) (unknown) (no (unknown) (unknown) The patient's (units ( unknown) date) recurrent unknown) bacterial vaginosis is also problematic for her despite (unknown) (no (unknown) (unknown) The patient's (units ( unknown) date) right lower unknown) quadrant/right hemipelvis pain is unchanged after 2 (unknown) (no (unknown) (unknown) This note may (units ( unknown) date) have been all or unknown) partially generated using voice recognition (unknown) (no (unknown) (unknown) Thought Content: (units (unknown) date) normal unknown) (unknown) (no (unknown) (unknown) Thought Process: (units (unknown) date) normal unknown) (unknown) (no (unknown) (unknown) Time Coding (units (un known) date) Minutes Spent: unknown) (must be on same date of service/appointme nt) (unknown) (no (unknown) (unknown) Time Spent (units (unk nown) date) unknown) (unknown) (no (unknown) (unknown) Tobacco + (units (unkn own) date) Substance Use unknown) (unknown) (no (unknown) (unknown) Tobacco Status (units (unknown) date) unknown) (unknown) (no (unknown) (unknown) Total Time: 40 (units (unknown) date) unknown) (unknown) (no (unknown) (unknown) US pelvic (units (unkn own) date) complete 1 Week unknown) G89.29 - Other chronic pain, N70.11 - Chronic (unknown) (no (unknown) (unknown) Urethra: normal (units (unknown) date) appearance of the unknown) urethra and tender (unknown) (no (unknown) (unknown) Visit Reasons: (units (unknown) date) F/U Chronic unknown) Pelvic Pain (unknown) (no (unknown) (unknown) Vitals (units (unkno wn) date) unknown) (unknown) (no (unknown) (unknown) Weight 150 lb 1 (units (unknown) date) oz unknown) (unknown) (no (unknown) (unknown) abnormal, RSO may (units (unknown) date) be necessary to unknown) give her the best possible chance of resolving (unknown) (no (unknown) (unknown) adnexa), (units (unkno wn) date) cul-de-sac unknown) tenderness and No cul-de-sac nodularity (unknown) (no (unknown) (unknown) after completing (units (unknown) date) her antibiotics. unknown) Patient is sexually active but her partner (unknown) (no (unknown) (unknown) also made aware (units (unknown) date) that no assurance unknown) can be made that her pain will be resolved (unknown) (no (unknown) (unknown) also understands (units (unknown) date) that if tube and unknown) ovary are severely scarred or otherwise (unknown) (no (unknown) (unknown) and possible (units (u nknown) date) right unknown) salpingo-oophorec fawn to further evaluate and treat her RLQ, (unknown) (no (unknown) (unknown) as the cause of (units (unknown) date) diseases unknown) classified elsewhere, N76.0 - Acute vaginitis, R10.2 (unknown) (no (unknown) (unknown) ay occur. (units (unkn own) date) Occasional unknown) wrong-word or 'sound-alike' substitutions may have (unknown) (no (unknown) (unknown) boric acid (units (unk nown) date) capsules 600 mg unknown) w/ or w/o probiotics and re-evaluate in 4 weeks. If (unknown) (no (unknown) (unknown) clindamycin HCl (units (unknown) date) 150 mg PO DAILY unknown) 30 caps 0RF (unknown) (no (unknown) (unknown) clindamycin HCl (units (unknown) date) 150 mg capsule unknown) 150 mg PO DAILY #30 caps 03/17/22 [Rx Confirmed (unknown) (no (unknown) (unknown) discharge (units (unkn own) date) (Thick, white, + unknown) amine odor; AFFIRM submitted.) and no lesions (unknown) (no (unknown) (unknown) doxycycline (units (un known) date) Adverse Reaction unknown) (Intermediate, Verified 03/17/22 08:14) (unknown) (no (unknown) (unknown) encounter and if (units (unknown) date) true re-infection unknown) would seem less likely than recurrence. Will (unknown) (no (unknown) (unknown) evaluation/treat (units (unknown) date) ment of her unknown) RLQ/pelvic pain. In addition her bacterial (unknown) (no (unknown) (unknown) have occurred. (units (unknown) date) If there are any unknown) questions, please contact the Medical Records (unknown) (no (unknown) (unknown) having been (units (un known) date) treated with both unknown) metronidazole and clindamycin at various times, (unknown) (no (unknown) (unknown) her chronic (units (un known) date) right lower unknown) quadrant pain following her TOA. The results of the (unknown) (no (unknown) (unknown) her discharge (units ( unknown) date) has resolved, unknown) will then initiate metrogel PV twice weekly for 3-6 (unknown) (no (unknown) (unknown) infection which (units (unknown) date) she apparently unknown) had. Surgical case request submitted. (unknown) (no (unknown) (unknown) initiate vaginal (units (unknown) date) clindamycin unknown) capsules 150 mg q HS in conjunction with daily PV (unknown) (no (unknown) (unknown) least weekly (units (u nknown) date) during that time. unknown) (unknown) (no (unknown) (unknown) lower quadrant (units (unknown) date) pain unknown) (unknown) (no (unknown) (unknown) months as (units (unkn own) date) maintenance unknown) therapy while continuing to use boric acid capsules at (unknown) (no (unknown) (unknown) most recently PO (units (unknown) date) metronidazole x unknown) 14 days. She is using condoms with each sexual (unknown) (no (unknown) (unknown) nontender (units (unkn own) date) unknown) (unknown) (no (unknown) (unknown) occurred due to (units (unknown) date) the inherent unknown) limitations of voice recognition software. Please (unknown) (no (unknown) (unknown) ordered pelvic (units (unknown) date) ultrasound will unknown) also have a bearing on surgical plan and patient (unknown) (no (unknown) (unknown) oxycodone 5 mg (units (unknown) date) tablet 5 mg PO unknown) Q6H PRN pain #10 tabs 02/24/22 [Rx Confirmed (unknown) (no (unknown) (unknown) post-TOA pain. (units (unknown) date) It is hoped that unknown) her ovary and tube can be preserved but she (unknown) (no (unknown) (unknown) promethazine 25 (units (unknown) date) mg tablet 25 mg unknown) PO Q6H PRN 11/30/21 [History Confirmed 03/17/22] (unknown) (no (unknown) (unknown) rash (units (unkno wn) date) unknown) (unknown) (no (unknown) (unknown) read the note (units ( unknown) date) carefully and unknown) recognize, using context, where these substitutions (unknown) (no (unknown) (unknown) residual mass or (units (unknown) date) post inflammatory unknown) phlegmon involving the right adnexa. Pelvic (unknown) (no (unknown) (unknown) salpingitis, (units (u nknown) date) N70.93 - unknown) Salpingitis and oophoritis, unspecified, 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 Patient unknown) wishes to proceed with definitive (unknown) (no (unknown) (unknown) software. (units (unkn own) date) Although every unknown) effort is made to edit content, financial solutions advisor errors m (unknown) (no (unknown) (unknown) treated for BV. (units (unknown) date) unknown) (unknown) (no (unknown) (unknown) ultrasound (units (unk nown) date) ordered and will unknown) contact the patient with results when available. (unknown) (no (unknown) (unknown) urethra and (units (un known) date) tender unknown) (unknown) (no (unknown) (unknown) uses condoms (units (u nknown) date) with each sexual unknown) encounter. Patient's partners has never been (unknown) (no (unknown) (unknown) vaginosis which (units (unknown) date) initially unknown) improved with therapy has returned within a few days (unknown) (no (unknown) (unknown) vomitt (units (unkno wn) date) unknown) (unknown) (no (unknown) (unknown) weeks of (units (unkno wn) date) antibiotic unknown) therapy and her pelvic exam today suggests there may be (unknown) (no (unknown) (unknown) with RSO or (units (un known) date) other surgical unknown) procedures, especially following a severe pelvic Result panel 19 (unknown) (no date) (unknown) (unknown) Negative (units (unkn own) unknown) (unknown) (no date) (unknown) (unknown) Negative (units (unkn own) unknown) (unknown) (no date) (unknown) (unknown) Positive (units (unkn own) unknown) Result panel 20 (unknown) (no (unknown) (unknown) (no value) (units (unk nown) date) unknown) (unknown) (no (unknown) (unknown) [id number] (units (unkno wn) date) unknown) (unknown) (no (unknown) (unknown) 04/05/22 (units (unkno wn) date) unknown) (unknown) (no (unknown) (unknown) 04/05/22] (units (unkn own) date) unknown) (unknown) (no (unknown) (unknown) 16:12 (units (unkno wn) date) unknown) (unknown) (no (unknown) (unknown) Acne (-2015) (units (u nknown) date) unknown) (unknown) (no (unknown) (unknown) Age/Sex: 21 / F (units (unknown) date) Date of Service: unknown) (unknown) (no (unknown) (unknown) Allergies (units (unkn own) date) unknown) (unknown) (no (unknown) (unknown) [place], [place] (units ( unknown) date) [id number] unknown) (unknown) (no (unknown) (unknown) Anesthesia (units (unk nown) date) unknown) (unknown) (no (unknown) (unknown) Attending Dr: (units ( unknown) date) Sushant Bryant unknown) (unknown) (no (unknown) (unknown) BMI 25.8 (units (unkno wn) date) unknown) (unknown) (no (unknown) (unknown) BP 108/58 L (units (un known) date) unknown) (unknown) (no (unknown) (unknown) Blood Pressure (units (unknown) date) Location Rt unknown) brachial (unknown) (no (unknown) (unknown) Chlamydia (units (unkn own) date) infection () unknown) (unknown) (no (unknown) (unknown) : 2000 (units (unknown) date) Acct:[id number] unknown) (unknown) (no (unknown) (unknown) Dept at (units (unkno wn) date) . unknown) (unknown) (no (unknown) (unknown) Documented By: (units (unknown) date) Sushant Bryant unknown) 04/05/22 1610 (unknown) (no (unknown) (unknown) Draft (units (unkno wn) date) unknown) (unknown) (no (unknown) (unknown) Endometriosis (units ( unknown) date) () unknown) (unknown) (no (unknown) (unknown) [facility]) (unknown) (no (unknown) (unknown) Gynecology Visit (units (unknown) date) unknown) (unknown) (no (unknown) (unknown) Heavy menstrual (units (unknown) date) period () unknown) (unknown) (no (unknown) (unknown) Height 5 ft 3.5 (units (unknown) date) in unknown) (unknown) (no (unknown) (unknown) Intake (units (unkno wn) date) unknown) (unknown) (no (unknown) (unknown) Irregular (units (unkn own) date) menstrual cycle unknown) () (unknown) (no (unknown) (unknown) Last Menstural (units (unknown) date) Cycle + Details unknown) (unknown) (no (unknown) (unknown) Loc: [facility] (units (unkno wn) date) unknown) (unknown) (no (unknown) (unknown) Lymphangioma (units (u nknown) date) unknown) (unknown) (no (unknown) (unknown) Medical History (units (unknown) date) (Reviewed unknown) 03/17/22 @ 08:13 by William Hay RN) (unknown) (no (unknown) (unknown) Medications (units (un known) date) unknown) (unknown) (no (unknown) (unknown) Opioids - (units (unkn own) date) Morphine unknown) Analogues Allergy (Intermediate, Verified 04/05/22 16:10) (unknown) (no (unknown) (unknown) Other Menstrual (units (unknown) date) Period: Other unknown) (unknown) (no (unknown) (unknown) Ovarian cyst (units (u nknown) date) unknown) (unknown) (no (unknown) (unknown) Oxygen Delivery (units (unknown) date) Method simple unknown) mask (unknown) (no (unknown) (unknown) PFSH (units (unkno wn) date) unknown) (unknown) (no (unknown) (unknown) Painful (units (unkno wn) date) menstrual periods unknown) () (unknown) (no (unknown) (unknown) Patient: (units (unkno wn) date) Ade Matthews E unknown) MR#: [id number] (unknown) (no (unknown) (unknown) Position Sitting (units (unknown) date) unknown) (unknown) (no (unknown) (unknown) Pulse 80 (units (unkno wn) date) unknown) (unknown) (no (unknown) (unknown) Pulse Oximetry (units (unknown) date) (%) 100 unknown) (unknown) (no (unknown) (unknown) Reason For Visit (units (unknown) date) unknown) (unknown) (no (unknown) (unknown) S/P ACL (units (unkno wn) date) reconstruction unknown) (06/08/21) (unknown) (no (unknown) (unknown) Signed By: (units (unk nown) date) unknown) (unknown) (no (unknown) (unknown) Smoking Status: (units (unknown) date) Never smoker unknown) (unknown) (no (unknown) (unknown) Surgical History (units (unknown) date) (Reviewed unknown) 03/17/22 @ 08:13 by William Hay RN) (unknown) (no (unknown) (unknown) TOA (units (unkno wn) date) (tubo-ovarian unknown) abscess) (06/28/21) (unknown) (no (unknown) (unknown) Temp 98.7 F (units (un known) date) unknown) (unknown) (no (unknown) (unknown) This note may (units ( unknown) date) have been all or unknown) partially generated using voice recognition (unknown) (no (unknown) (unknown) Tobacco + (units (unkn own) date) Substance Use unknown) (unknown) (no (unknown) (unknown) Tobacco Status (units (unknown) date) unknown) (unknown) (no (unknown) (unknown) Visit Reasons: (units (unknown) date) Pre op w/covid unknown) test? (unknown) (no (unknown) (unknown) Vitals (units (unkno wn) date) unknown) (unknown) (no (unknown) (unknown) Weight 148 lb (units ( unknown) date) unknown) (unknown) (no (unknown) (unknown) clindamycin HCl (units (unknown) date) 150 mg capsule unknown) 150 mg PO DAILY #30 caps 03/17/22 [Rx Confirmed (unknown) (no (unknown) (unknown) doxycycline (units (un known) date) Adverse Reaction unknown) (Intermediate, Verified 04/05/22 16:10) (unknown) (no (unknown) (unknown) have occurred. (units (unknown) date) If there are any unknown) questions, please contact the Medical Records (unknown) (no (unknown) (unknown) may occur. (units (unk nown) date) Occasional unknown) wrong-word or 'sound-alike' substitutions may have (unknown) (no (unknown) (unknown) occurred due to (units (unknown) date) the inherent unknown) limitations of voice recognition software. Please (unknown) (no (unknown) (unknown) oxycodone 5 mg (units (unknown) date) tablet 5 mg PO unknown) Q6H PRN pain #10 tabs 02/24/22 [Rx Confirmed (unknown) (no (unknown) (unknown) promethazine 25 (units (unknown) date) mg tablet 25 mg unknown) PO Q6H PRN 11/30/21 [History Confirmed 04/05/22] (unknown) (no (unknown) (unknown) rash (units (unkno wn) date) unknown) (unknown) (no (unknown) (unknown) read the note (units ( unknown) date) carefully and unknown) recognize, using context, where these substitutions (unknown) (no (unknown) (unknown) software. (units (unkn own) date) Although every unknown) effort is made to edit content, financial solutions advisor errors (unknown) (no (unknown) (unknown) vomitt (units (unkno wn) date) unknown) Result panel 21 (unknown) (no (unknown) (unknown) (no value) (units (unk nown) date) unknown) (unknown) (no (unknown) (unknown) [id number] (units (unkno wn) date) unknown) (unknown) (no (unknown) (unknown) 04/05/22 (units (unkno wn) date) unknown) (unknown) (no (unknown) (unknown) 04/05/22] (units (unkn own) date) unknown) (unknown) (no (unknown) (unknown) 16:12 (units (unkno wn) date) unknown) (unknown) (no (unknown) (unknown) 2021 with an 8 (units (unknown) date) month history of unknown) right lower quadrant pain following right-sided (unknown) (no (unknown) (unknown) Acne (-2016) (units (u nknown) date) unknown) (unknown) (no (unknown) (unknown) Affect: normal (units (unknown) date) affect unknown) (unknown) (no (unknown) (unknown) Age/Sex: 21 / F (units (unknown) date) Date of Service: unknown) (unknown) (no (unknown) (unknown) Allergies (units (unkn own) date) unknown) (unknown) (no (unknown) (unknown) [place], [place] (units ( unknown) date) [id number] unknown) (unknown) (no (unknown) (unknown) Anesthesia (units (unk nown) date) unknown) (unknown) (no (unknown) (unknown) Appearance: (units (un known) date) grossly normal unknown) (unknown) (no (unknown) (unknown) Assessment + Plan (units (unknown) date) unknown) (unknown) (no (unknown) (unknown) Attending Dr: (units ( unknown) date) Sushant Bryant MD unknown) (unknown) (no (unknown) (unknown) Attitude: (units (unkn own) date) cooperative unknown) (unknown) (no (unknown) (unknown) Auscultation: (units ( unknown) date) clear to unknown) auscultation bilaterally (unknown) (no (unknown) (unknown) BMI 25.8 (units (unkno wn) date) unknown) (unknown) (no (unknown) (unknown) BP 108/58 L (units (un known) date) unknown) (unknown) (no (unknown) (unknown) Blood Pressure (units (unknown) date) Location Rt unknown) brachial (unknown) (no (unknown) (unknown) COVID-19 (units (unkno wn) date) unknown) (unknown) (no (unknown) (unknown) COVID19 -Nasal (units (unknown) date) RAPID/Pre-Proc unknown) Today Z01.812 - Encounter for preprocedural (unknown) (no (unknown) (unknown) Cardio (units (unkno wn) date) unknown) (unknown) (no (unknown) (unknown) Chief Complaint (units (unknown) date) unknown) (unknown) (no (unknown) (unknown) Chief Complaint: (units (unknown) date) Pre-op visit unknown) (unknown) (no (unknown) (unknown) Chlamydia (units (unkn own) date) infection () unknown) (unknown) (no (unknown) (unknown) Conjunctivae: (units ( unknown) date) conjunctivae unknown) normal (unknown) (no (unknown) (unknown) Const (units (unkno wn) date) unknown) (unknown) (no (unknown) (unknown) : 2000 (units (unknown) date) Acct:[id number] unknown) (unknown) (no (unknown) (unknown) Dept at (units (unkno wn) date) . unknown) (unknown) (no (unknown) (unknown) Details: (units (unkno wn) date) unknown) (unknown) (no (unknown) (unknown) Documented By: (units (unknown) date) Sushant Bryant MD unknown) 04/05/22 1610 (unknown) (no (unknown) (unknown) Draft (units (unkno wn) date) unknown) (unknown) (no (unknown) (unknown) EOM: EOM intact (units (unknown) date) bilaterally unknown) (unknown) (no (unknown) (unknown) Ears: hearing (units ( unknown) date) grossly normal unknown) bilaterally (unknown) (no (unknown) (unknown) Effort + (units (unkno wn) date) Inspection: normal unknown) respiratory effort and able to speak in complete (unknown) (no (unknown) (unknown) Endometriosis (units ( unknown) date) () unknown) (unknown) (no (unknown) (unknown) Exam (units (unkno wn) date) unknown) (unknown) (no (unknown) (unknown) Eyes (units (unkno wn) date) unknown) (unknown) (no (unknown) (unknown) Face and sinus: (units (unknown) date) face symmetric unknown) (unknown) (no (unknown) (unknown) [facility]) (unknown) (no (unknown) (unknown) (units (unkno wn) date) unknown) (unknown) (no (unknown) (unknown) General: (units (unkno wn) date) appearance normal, unknown) both eyes and all related structures (unknown) (no (unknown) (unknown) General: (units (unkno wn) date) cooperative, unknown) comfortable and no acute distress (unknown) (no (unknown) (unknown) General: deferred (units (unknown) date) unknown) (unknown) (no (unknown) (unknown) Ade is a (units (unk nown) date) 21-year-old unknown) nulligravida, LMP in November 2021 who presented in February (unknown) (no (unknown) (unknown) Gynecology Visit (units (unknown) date) unknown) (unknown) (no (unknown) (unknown) HENMT (units (unkno wn) date) unknown) (unknown) (no (unknown) (unknown) HPI (units (unkno wn) date) unknown) (unknown) (no (unknown) (unknown) Head: normal to (units (unknown) date) inspection, unknown) normocephalic and atraumatic (unknown) (no (unknown) (unknown) Heart Sounds: S1 (units (unknown) date) normal and S2 unknown) normal (unknown) (no (unknown) (unknown) Heavy menstrual (units (unknown) date) period (-2019) unknown) (unknown) (no (unknown) (unknown) Height 5 ft 3.5 (units (unknown) date) in unknown) (unknown) (no (unknown) (unknown) Hospital in (units (un known) date) [place] back in unknown) June 2021.? No records are available for review (unknown) (no (unknown) (unknown) Intake (units (unkno wn) date) unknown) (unknown) (no (unknown) (unknown) Irregular (units (unkn own) date) menstrual cycle unknown) () (unknown) (no (unknown) (unknown) Judgment: (units (unkn own) date) judgment good unknown) (unknown) (no (unknown) (unknown) Last Menstural (units (unknown) date) Cycle + Details unknown) (unknown) (no (unknown) (unknown) Loc: [facility] (units (unkno wn) date) unknown) (unknown) (no (unknown) (unknown) Lymphangioma (units (u nknown) date) unknown) (unknown) (no (unknown) (unknown) Medical History (units (unknown) date) (Reviewed 03/17/22 unknown) @ 08:13 by William Hay RN) (unknown) (no (unknown) (unknown) Medications (units (un known) date) unknown) (unknown) (no (unknown) (unknown) Mental Status: (units (unknown) date) mental status unknown) grossly normal (unknown) (no (unknown) (unknown) Mood: congruent (units (unknown) date) mood unknown) (unknown) (no (unknown) (unknown) Neck (units (unkno wn) date) unknown) (unknown) (no (unknown) (unknown) Neck: normal (units (u nknown) date) visual inspection unknown) (unknown) (no (unknown) (unknown) Nutritional (units (un known) date) Appearance: unknown) average body habitus (unknown) (no (unknown) (unknown) Opioids - (units (unkn own) date) Morphine Analogues unknown) Allergy (Intermediate, Verified 04/05/22 16:10) (unknown) (no (unknown) (unknown) Orders (units (unkno wn) date) unknown) (unknown) (no (unknown) (unknown) Orders: (units (unkno wn) date) unknown) (unknown) (no (unknown) (unknown) Orientation: (units (u nknown) date) alert and oriented unknown) x3 (unknown) (no (unknown) (unknown) Other Menstrual (units (unknown) date) Period: Other unknown) (unknown) (no (unknown) (unknown) Ovarian cyst (units (u nknown) date) unknown) (unknown) (no (unknown) (unknown) Oxygen Delivery (units (unknown) date) Method simple mask unknown) (unknown) (no (unknown) (unknown) PFSH (units (unkno wn) date) unknown) (unknown) (no (unknown) (unknown) Painful menstrual (units (unknown) date) periods () unknown) (unknown) (no (unknown) (unknown) Patient: (units (unkno wn) date) Ade Matthews unknown) MR#: [id number] (unknown) (no (unknown) (unknown) Position Sitting (units (unknown) date) unknown) (unknown) (no (unknown) (unknown) Problem-specific (units (unknown) date) ROS positives unknown) included with the HPI (unknown) (no (unknown) (unknown) Psych (units (unkno wn) date) unknown) (unknown) (no (unknown) (unknown) Pulse 80 (units (unkno wn) date) unknown) (unknown) (no (unknown) (unknown) Pulse Oximetry (units (unknown) date) (%) 100 unknown) (unknown) (no (unknown) (unknown) ROS Narrative (units ( unknown) date) unknown) (unknown) (no (unknown) (unknown) ROS Narrative: (units (unknown) date) unknown) (unknown) (no (unknown) (unknown) ROS (units (unkno wn) date) unknown) (unknown) (no (unknown) (unknown) Rate: regular (units ( unknown) date) rate unknown) (unknown) (no (unknown) (unknown) Reason For Visit (units (unknown) date) unknown) (unknown) (no (unknown) (unknown) Resp (units (unkno wn) date) unknown) (unknown) (no (unknown) (unknown) Rhythm: regular (units (unknown) date) rhythm unknown) (unknown) (no (unknown) (unknown) S/P ACL (units (unkno wn) date) reconstruction unknown) (-06/08/21) (unknown) (no (unknown) (unknown) Sclera: sclerae (units (unknown) date) normal unknown) (unknown) (no (unknown) (unknown) Signed By: (units (unk nown) date) unknown) (unknown) (no (unknown) (unknown) Smoking Status: (units (unknown) date) Never smoker unknown) (unknown) (no (unknown) (unknown) Speech and (units (unk nown) date) Movement: speech unknown) and movement normal (unknown) (no (unknown) (unknown) Surgical History (units (unknown) date) (Reviewed 03/17/22 unknown) @ 08:13 by William Hay RN) (unknown) (no (unknown) (unknown) TOA (tubo-ovarian (units (unknown) date) abscess) unknown) (-06/28/21) (unknown) (no (unknown) (unknown) Temp 98.7 F (units (un known) date) unknown) (unknown) (no (unknown) (unknown) This note may (units ( unknown) date) have been all or unknown) partially generated using voice recognition (unknown) (no (unknown) (unknown) Thought Content: (units (unknown) date) normal unknown) (unknown) (no (unknown) (unknown) Thought Process: (units (unknown) date) normal unknown) (unknown) (no (unknown) (unknown) Tobacco + (units (unkn own) date) Substance Use unknown) (unknown) (no (unknown) (unknown) Tobacco Status (units (unknown) date) unknown) (unknown) (no (unknown) (unknown) Visit Reasons: (units (unknown) date) Pre op w/covid unknown) test? (unknown) (no (unknown) (unknown) Vitals (units (unkno wn) date) unknown) (unknown) (no (unknown) (unknown) Weight 148 lb (units ( unknown) date) unknown) (unknown) (no (unknown) (unknown) and therefore (units ( unknown) date) discontinue the unknown) oral antibiotics.? As a result she only had (unknown) (no (unknown) (unknown) clindamycin HCl (units (unknown) date) 150 mg capsule 150 unknown) mg PO DAILY #30 caps 03/17/22 [Rx Confirmed (unknown) (no (unknown) (unknown) considering all (units (unknown) date) options, the unknown) patient is proceeding to diagnostic laparoscopy (unknown) (no (unknown) (unknown) counseling, and (units (unknown) date) consent. unknown) (unknown) (no (unknown) (unknown) doxycycline (units (un known) date) Adverse Reaction unknown) (Intermediate, Verified 04/05/22 16:10) (unknown) (no (unknown) (unknown) follow-up from an (units (unknown) date) ER visit at unknown) [facility] on 02/17/2022 at which (unknown) (no (unknown) (unknown) following IV (units (u nknown) date) antibiotics but unknown) apparently had an adverse reaction to Vibramycin (unknown) (no (unknown) (unknown) has had only very (units (unknown) date) irregular cycles unknown) since the TOA or as she had regular (unknown) (no (unknown) (unknown) have occurred. If (units (unknown) date) there are any unknown) questions, please contact the Medical Records (unknown) (no (unknown) (unknown) incapacitating (units (unknown) date) pain. She presents unknown) today for her preoperative evaluation, (unknown) (no (unknown) (unknown) incompletely (units (u nknown) date) treated TOA didn't unknown) provide any improvement in her pain and after (unknown) (no (unknown) (unknown) intravenous (units (un known) date) antibiotic therapy unknown) and no follow-up oral antibiotic therapy.? Since (unknown) (no (unknown) (unknown) laboratory (units (unk nown) date) examination, unknown) Z20.822 - Contact with and (suspected) exposure to (unknown) (no (unknown) (unknown) may occur. (units (unk nown) date) Occasional unknown) wrong-word or 'sound-alike' substitutions may have (unknown) (no (unknown) (unknown) occurred due to (units (unknown) date) the inherent unknown) limitations of voice recognition software. Please (unknown) (no (unknown) (unknown) of that (units (unkno wn) date) hospitalization unknown) but apparently she was treated with IV antibiotics and (unknown) (no (unknown) (unknown) ovary. A two week (units (unknown) date) trial of PO AB's unknown) for suspected chronic PID following (unknown) (no (unknown) (unknown) oxycodone 5 mg (units (unknown) date) tablet 5 mg PO Q6H unknown) PRN pain #10 tabs 02/24/22 [Rx Confirmed (unknown) (no (unknown) (unknown) percutaneous (units (u nknown) date) drainage of the unknown) abscess.? She was placed on oral antibiotics (unknown) (no (unknown) (unknown) predictable (units (un known) date) periods up until unknown) that time.? She presented in consultation in (unknown) (no (unknown) (unknown) promethazine 25 mg (units (unknown) date) tablet 25 mg PO unknown) Q6H PRN 11/30/21 [History Confirmed 04/05/22] (unknown) (no (unknown) (unknown) rash (units (unkno wn) date) unknown) (unknown) (no (unknown) (unknown) read the note (units ( unknown) date) carefully and unknown) recognize, using context, where these substitutions (unknown) (no (unknown) (unknown) sentences (units (unkn own) date) unknown) (unknown) (no (unknown) (unknown) software. (units (unkn own) date) Although every unknown) effort is made to edit content, financial solutions advisor errors (unknown) (no (unknown) (unknown) that time she is (units (unknown) date) had persistent unknown) right lower quadrant pain which is noncyclic and (unknown) (no (unknown) (unknown) time she (units (unkno wn) date) underwent unknown) abdominal/pelvic CT and pelvic ultrasound which were largely (unknown) (no (unknown) (unknown) tubo-ovarian (units (u nknown) date) abscess due to unknown) chlamydia treated as an inpatient at [facility] (unknown) (no (unknown) (unknown) unremarkable with (units (unknown) date) the exception of a unknown) 3 cm hemorrhagic cyst within the right (unknown) (no (unknown) (unknown) vomitt (units (unkno wn) date) unknown) (unknown) (no (unknown) (unknown) with possible (units ( unknown) date) right unknown) salpingo-oophorect erik for persistent and at times Result panel 22 (unknown) (no (unknown) (unknown) (no value) (units (unk nown) date) unknown) (unknown) (no (unknown) (unknown) (1) Pelvic pain: (units (unknown) date) unknown) (unknown) (no (unknown) (unknown) (2) Chronic right (units (unknown) date) lower quadrant pain: unknown) (unknown) (no (unknown) (unknown) [id number] (units (unkno wn) date) unknown) (unknown) (no (unknown) (unknown) 04/05/22 (units (unkno wn) date) unknown) (unknown) (no (unknown) (unknown) 04/05/22] (units (unkn own) date) unknown) (unknown) (no (unknown) (unknown) 16:12 (units (unkno wn) date) unknown) (unknown) (no (unknown) (unknown) 2021 with an 8 (units (unknown) date) month history of unknown) right lower quadrant pain following right-sided (unknown) (no (unknown) (unknown) Acne (-2016) (units (u nknown) date) unknown) (unknown) (no (unknown) (unknown) Affect: normal (units (unknown) date) affect unknown) (unknown) (no (unknown) (unknown) Age/Sex: 21 / F (units (unknown) date) Date of Service: unknown) (unknown) (no (unknown) (unknown) Allergies (units (unkn own) date) unknown) (unknown) (no (unknown) (unknown) [place] [id number] (unit s (unknown) date) unknown) (unknown) (no (unknown) (unknown) Anesthesia (units (unk nown) date) unknown) (unknown) (no (unknown) (unknown) Appearance: grossly (unit s (unknown) date) normal unknown) (unknown) (no (unknown) (unknown) Assessment + Plan (units (unknown) date) unknown) (unknown) (no (unknown) (unknown) Attending Dr: (units ( unknown) date) Sushant Bryant MD unknown) (unknown) (no (unknown) (unknown) Attitude: (units (unkn own) date) cooperative unknown) (unknown) (no (unknown) (unknown) Auscultation: clear (unit s (unknown) date) to auscultation unknown) bilaterally (unknown) (no (unknown) (unknown) BMI 25.8 (units (unkno wn) date) unknown) (unknown) (no (unknown) (unknown) BP 108/58 L (units (un known) date) unknown) (unknown) (no (unknown) (unknown) Bimanual Exam- (units ( unknown) date) [employer], other: unknown) normal, tender (Marked, right) and mass (Fullness, (unknown) (no (unknown) (unknown) Bimanual Exam- (units (unknown) date) Vagina + Uterus: unknown) uterine size normal and tender (Mild) (unknown) (no (unknown) (unknown) Blood Pressure (units (unknown) date) Location Rt brachial unknown) (unknown) (no (unknown) (unknown) COVID-19 (units (unkno wn) date) unknown) (unknown) (no (unknown) (unknown) COVID19 -Nasal (units (unknown) date) RAPID/Pre-Proc Today unknown) Z01.812 - Encounter for preprocedural (unknown) (no (unknown) (unknown) Cardio (units (unkno wn) date) unknown) (unknown) (no (unknown) (unknown) Chief Complaint (units (unknown) date) unknown) (unknown) (no (unknown) (unknown) Chief Complaint: (units (unknown) date) Pre-op visit unknown) (unknown) (no (unknown) (unknown) Chlamydia infection (unit s (unknown) date) () unknown) (unknown) (no (unknown) (unknown) Conjunctivae: (units ( unknown) date) conjunctivae normal unknown) (unknown) (no (unknown) (unknown) Const (units (unkno wn) date) unknown) (unknown) (no (unknown) (unknown) : 2000 (units (unknown) date) Acct:[id number] unknown) (unknown) (no (unknown) (unknown) Dept at (units (unkno wn) date) . unknown) (unknown) (no (unknown) (unknown) Details: (units (unkno wn) date) unknown) (unknown) (no (unknown) (unknown) Documented By: (units (unknown) date) Sushant Bryant MD unknown) 04/05/22 1610 (unknown) (no (unknown) (unknown) Draft (units (unkno wn) date) unknown) (unknown) (no (unknown) (unknown) EOM: EOM intact (units (unknown) date) bilaterally unknown) (unknown) (no (unknown) (unknown) Ears: hearing (units ( unknown) date) grossly normal unknown) bilaterally (unknown) (no (unknown) (unknown) Effort + (units (unkno wn) date) Inspection: normal unknown) respiratory effort and able to speak in complete (unknown) (no (unknown) (unknown) Endometriosis (units ( unknown) date) () unknown) (unknown) (no (unknown) (unknown) Exam (units (unkno wn) date) unknown) (unknown) (no (unknown) (unknown) External Female (units (unknown) date) Exam: normal unknown) external appearance and normal appearance of the (unknown) (no (unknown) (unknown) Eyes (units (unkno wn) date) unknown) (unknown) (no (unknown) (unknown) Face and sinus: (units (unknown) date) face symmetric unknown) (unknown) (no (unknown) (unknown) [facility]) (unknown) (no (unknown) (unknown) GI (units (unkno wn) date) unknown) (unknown) (no (unknown) (unknown) (units (unkno wn) date) unknown) (unknown) (no (unknown) (unknown) General: appearance (unit s (unknown) date) normal, both eyes unknown) and all related structures (unknown) (no (unknown) (unknown) General: (units (unkno wn) date) cooperative, unknown) comfortable and no acute distress (unknown) (no (unknown) (unknown) Ade is a (units (unk nown) date) 21-year-old unknown) nulligravida, LMP in November 2021 who presented in February (unknown) (no (unknown) (unknown) Gynecology Visit (units (unknown) date) unknown) (unknown) (no (unknown) (unknown) HENMT (units (unkno wn) date) unknown) (unknown) (no (unknown) (unknown) HPI (units (unkno wn) date) unknown) (unknown) (no (unknown) (unknown) Head: normal to (units (unknown) date) inspection, unknown) normocephalic and atraumatic (unknown) (no (unknown) (unknown) Heart Sounds: S1 (units (unknown) date) normal, S2 normal unknown) and no murmurs (unknown) (no (unknown) (unknown) Heavy menstrual (units (unknown) date) period (-2019) unknown) (unknown) (no (unknown) (unknown) Height 5 ft 3.5 in (units (unknown) date) unknown) (unknown) (no (unknown) (unknown) [facility] (unit s (unknown) date) back in June unknown) 2020.? No records are available for review (unknown) (no (unknown) (unknown) Inspection: normal (units (unknown) date) to inspection unknown) (unknown) (no (unknown) (unknown) Intake (units (unkno wn) date) unknown) (unknown) (no (unknown) (unknown) Irregular menstrual (unit s (unknown) date) cycle () unknown) (unknown) (no (unknown) (unknown) Judgment: judgment (units (unknown) date) good unknown) (unknown) (no (unknown) (unknown) Last Menstural (units (unknown) date) Cycle + Details unknown) (unknown) (no (unknown) (unknown) Loc: [facility] (units (unkno wn) date) unknown) (unknown) (no (unknown) (unknown) Lymphangioma (units (u nknown) date) unknown) (unknown) (no (unknown) (unknown) Medical History (units (unknown) date) (Reviewed 03/17/22 @ unknown) 08:13 by William Hay RN) (unknown) (no (unknown) (unknown) Medications (units (un known) date) unknown) (unknown) (no (unknown) (unknown) Mental Status: (units (unknown) date) mental status unknown) grossly normal (unknown) (no (unknown) (unknown) Mood: congruent (units (unknown) date) mood unknown) (unknown) (no (unknown) (unknown) Neck (units (unkno wn) date) unknown) (unknown) (no (unknown) (unknown) Neck: normal visual (unit s (unknown) date) inspection unknown) (unknown) (no (unknown) (unknown) Nutritional (units (un known) date) Appearance: average unknown) body habitus (unknown) (no (unknown) (unknown) OB/External + (units ( unknown) date) Speculum: cervical unknown) os open (unknown) (no (unknown) (unknown) Opioids - Morphine (units (unknown) date) Analogues Allergy unknown) (Intermediate, Verified 04/05/22 16:10) (unknown) (no (unknown) (unknown) Orders (units (unkno wn) date) unknown) (unknown) (no (unknown) (unknown) Orders: (units (unkno wn) date) unknown) (unknown) (no (unknown) (unknown) Orientation: alert (units (unknown) date) and oriented x3 unknown) (unknown) (no (unknown) (unknown) Other Menstrual (units (unknown) date) Period: Other unknown) (unknown) (no (unknown) (unknown) Ovarian cyst (units (u nknown) date) unknown) (unknown) (no (unknown) (unknown) Oxygen Delivery (units (unknown) date) Method simple mask unknown) (unknown) (no (unknown) (unknown) PFSH (units (unkno wn) date) unknown) (unknown) (no (unknown) (unknown) Painful menstrual (units (unknown) date) periods () unknown) (unknown) (no (unknown) (unknown) Palpation: soft, no (unit s (unknown) date) hepatosplenomegaly unknown) and tender (Marked tenderness RLQ) (unknown) (no (unknown) (unknown) Patient counseled (units (unknown) date) regarding unknown) alternatives, risks, benefits, and potential (unknown) (no (unknown) (unknown) Patient: (units (unkno wn) date) Ade Matthews E unknown) MR#: [id number] (unknown) (no (unknown) (unknown) Pelvic Support: (units (unknown) date) normal unknown) (unknown) (no (unknown) (unknown) Plan (units (unkno wn) date) unknown) (unknown) (no (unknown) (unknown) Position Sitting (units (unknown) date) unknown) (unknown) (no (unknown) (unknown) Problem-specific (units (unknown) date) ROS positives unknown) included with the HPI (unknown) (no (unknown) (unknown) Psych (units (unkno wn) date) unknown) (unknown) (no (unknown) (unknown) Pulse 80 (units (unkno wn) date) unknown) (unknown) (no (unknown) (unknown) Pulse Oximetry (%) (units (unknown) date) 100 unknown) (unknown) (no (unknown) (unknown) ROS Narrative (units ( unknown) date) unknown) (unknown) (no (unknown) (unknown) ROS Narrative: (units (unknown) date) unknown) (unknown) (no (unknown) (unknown) ROS (units (unkno wn) date) unknown) (unknown) (no (unknown) (unknown) Rate: regular rate (units (unknown) date) unknown) (unknown) (no (unknown) (unknown) Reason For Visit (units (unknown) date) unknown) (unknown) (no (unknown) (unknown) Resp (units (unkno wn) date) unknown) (unknown) (no (unknown) (unknown) Rhythm: regular (units (unknown) date) rhythm unknown) (unknown) (no (unknown) (unknown) S/P ACL (units (unkno wn) date) reconstruction unknown) (-06/08/21) (unknown) (no (unknown) (unknown) Sclera: sclerae (units (unknown) date) normal unknown) (unknown) (no (unknown) (unknown) Signed By: (units (unk nown) date) unknown) (unknown) (no (unknown) (unknown) Smoking Status: (units (unknown) date) Never smoker unknown) (unknown) (no (unknown) (unknown) Speculum Exam - (units (unknown) date) Cervix: normal unknown) appearance of the cervix and cervical os open (unknown) (no (unknown) (unknown) Speculum Exam - (units (unknown) date) Vagina: normal unknown) appearance of the vagina and normal vaginal (unknown) (no (unknown) (unknown) Speculum Exam: (units (unknown) date) cervical os open unknown) (unknown) (no (unknown) (unknown) Speech and (units (unk nown) date) Movement: speech and unknown) movement normal (unknown) (no (unknown) (unknown) Status: Acute (units ( unknown) date) unknown) (unknown) (no (unknown) (unknown) Surgical History (units (unknown) date) (Reviewed 03/17/22 @ unknown) 08:13 by William Hay RN) (unknown) (no (unknown) (unknown) TOA (tubo-ovarian (units (unknown) date) abscess) (-06/28/21) unknown) (unknown) (no (unknown) (unknown) Temp 98.7 F (units (un known) date) unknown) (unknown) (no (unknown) (unknown) This note may have (units (unknown) date) been all or unknown) partially generated using voice recognition (unknown) (no (unknown) (unknown) Thought Content: (units (unknown) date) normal unknown) (unknown) (no (unknown) (unknown) Thought Process: (units (unknown) date) normal unknown) (unknown) (no (unknown) (unknown) Tobacco + Substance (unit s (unknown) date) Use unknown) (unknown) (no (unknown) (unknown) Tobacco Status (units (unknown) date) unknown) (unknown) (no (unknown) (unknown) Urethra: normal (units (unknown) date) appearance of the unknown) urethra (unknown) (no (unknown) (unknown) Visit Reasons: Pre (units (unknown) date) op w/covid test? unknown) (unknown) (no (unknown) (unknown) Vitals (units (unkno wn) date) unknown) (unknown) (no (unknown) (unknown) Weight 148 lb (units ( unknown) date) unknown) (unknown) (no (unknown) (unknown) and therefore (units ( unknown) date) discontinue the oral unknown) antibiotics.? As a result she only had (unknown) (no (unknown) (unknown) bilaterally (units (un known) date) unknown) (unknown) (no (unknown) (unknown) clindamycin HCl 150 (unit s (unknown) date) mg capsule 150 mg PO unknown) DAILY #30 caps 03/17/22 [Rx Confirmed (unknown) (no (unknown) (unknown) complications (units ( unknown) date) associated with unknown) diagnostic laparoscopy with possible right (unknown) (no (unknown) (unknown) considering all (units (unknown) date) options, the patient unknown) is proceeding to diagnostic laparoscopy (unknown) (no (unknown) (unknown) counseling, and (units (unknown) date) consent. unknown) (unknown) (no (unknown) (unknown) discharge (units (unkn own) date) unknown) (unknown) (no (unknown) (unknown) doxycycline Adverse (unit s (unknown) date) Reaction unknown) (Intermediate, Verified 04/05/22 16:10) (unknown) (no (unknown) (unknown) follow-up [facility]units (unknown) date[facility] at which (unknown) (no (unknown) (unknown) following IV (units (u nknown) date) antibiotics but unknown) apparently had an adverse reaction to Vibramycin (unknown) (no (unknown) (unknown) has had only very (units (unknown) date) irregular cycles unknown) since the TOA or as she had regular (unknown) (no (unknown) (unknown) have occurred. If (units (unknown) date) there are any unknown) questions, please contact the Medical Records (unknown) (no (unknown) (unknown) incapacitating (units (unknown) date) pain. She presents unknown) today for her preoperative evaluation, (unknown) (no (unknown) (unknown) incompletely (units (u nknown) date) treated TOA didn't unknown) provide any improvement in her pain and after (unknown) (no (unknown) (unknown) intravenous (units (un known) date) antibiotic therapy unknown) and no follow-up oral antibiotic therapy.? Since (unknown) (no (unknown) (unknown) laboratory (units (unk nown) date) examination, Z20.822 unknown) - Contact with and (suspected) exposure to (unknown) (no (unknown) (unknown) may occur. (units (unk nown) date) Occasional unknown) wrong-word or 'sound-alike' substitutions may have (unknown) (no (unknown) (unknown) necessitating (units (u nknown) date) evaluation/treatment unknown) by General surgery but that will not be known (unknown) (no (unknown) (unknown) occurred due to the (unit s (unknown) date) inherent limitations unknown) of voice recognition software. Please (unknown) (no (unknown) (unknown) of that (units (unkno wn) date) hospitalization but unknown) apparently she was treated with IV antibiotics and (unknown) (no (unknown) (unknown) ovary. 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 She was placed on oral antibiotics (unknown) (no (unknown) (unknown) predictable periods (unit s (unknown) date) up until that time.? unknown) She presented in consultation in (unknown) (no (unknown) (unknown) promethazine 25 mg (units (unknown) date) tablet 25 mg PO Q6H unknown) PRN 11/30/21 [History Confirmed 04/05/22] (unknown) (no (unknown) (unknown) rash (units (unkno wn) date) unknown) (unknown) (no (unknown) (unknown) read the note (units ( unknown) date) carefully and unknown) recognize, using context, where these substitutions (unknown) (no (unknown) (unknown) right adnexa) (units ( unknown) date) tender and soft on unknown) the right (unknown) (no (unknown) (unknown) salpingo-oophorecto (unit s (unknown) date) my. Patient also unknown) understands there may be bowel involvement (unknown) (no (unknown) (unknown) sentences (units (unkn own) date) unknown) (unknown) (no (unknown) (unknown) software. Although (units (unknown) date) every effort is made unknown) to edit content, financial solutions advisor errors (unknown) (no (unknown) (unknown) that time she is had (unit s (unknown) date) persistent right unknown) lower quadrant pain which is noncyclic and (unknown) (no (unknown) (unknown) time she underwent (units (unknown) date) abdominal/pelvic CT unknown) and pelvic ultrasound which were largely (unknown) (no (unknown) (unknown) tubo-ovarian (units (u nknown) date) abscess due to unknown) chlamydia treated as an inpatient at [facility] (unknown) (no (unknown) (unknown) unremarkable with (units (unknown) date) the exception of a 3 unknown) cm hemorrhagic cyst within the right (unknown) (no (unknown) (unknown) until the procedure (unit s (unknown) date) itself and the unknown) findings at that time. (unknown) (no (unknown) (unknown) urethra (units (unkno wn) date) unknown) (unknown) (no (unknown) (unknown) vomitt (units (unkno wn) date) unknown) (unknown) (no (unknown) (unknown) with possible right (unit s (unknown) date) salpingo-oophorectom unknown) y for persistent and at times Result panel 23 (unknown) (no (unknown) (unknown) (no value) (units (unk nown) date) unknown) (unknown) (no (unknown) (unknown) (1) Pelvic pain: (units (unknown) date) unknown) (unknown) (no (unknown) (unknown) (2) Chronic right (units (unknown) date) lower quadrant pain: unknown) (unknown) (no (unknown) (unknown) [id number] (units (unkno wn) date) unknown) (unknown) (no (unknown) (unknown) 04/05/22 1704 (units ( unknown) date) unknown) (unknown) (no (unknown) (unknown) 04/05/22 (units (unkno wn) date) unknown) (unknown) (no (unknown) (unknown) 04/05/22] (units (unkn own) date) unknown) (unknown) (no (unknown) (unknown) 16:12 (units (unkno wn) date) unknown) (unknown) (no (unknown) (unknown) 2021 with an 8 (units (unknown) date) month history of unknown) right lower quadrant pain following right-sided (unknown) (no (unknown) (unknown) Acne (-2016) (units (u nknown) date) unknown) (unknown) (no (unknown) (unknown) Affect: normal (units (unknown) date) affect unknown) (unknown) (no (unknown) (unknown) Age/Sex: 21 / F (units (unknown) date) Date of Service: unknown) (unknown) (no (unknown) (unknown) Allergies (units (unkn own) date) unknown) (unknown) (no (unknown) (unknown) [place] [id number] (unit s (unknown) date) unknown) (unknown) (no (unknown) (unknown) Anesthesia (units (unk nown) date) unknown) (unknown) (no (unknown) (unknown) Appearance: grossly (unit s (unknown) date) normal unknown) (unknown) (no (unknown) (unknown) Assessment + Plan (units (unknown) date) unknown) (unknown) (no (unknown) (unknown) Attending Dr: (units ( unknown) date) Sushant Bryant MD unknown) (unknown) (no (unknown) (unknown) Attitude: (units (unkn own) date) cooperative unknown) (unknown) (no (unknown) (unknown) Auscultation: clear (unit s (unknown) date) to auscultation unknown) bilaterally (unknown) (no (unknown) (unknown) BMI 25.8 (units (unkno wn) date) unknown) (unknown) (no (unknown) (unknown) BP 108/58 L (units (un known) date) unknown) (unknown) (no (unknown) (unknown) Bimanual Exam- (units ( unknown) date) Adnexa, other: unknown) normal, tender (Marked, right) and mass (Fullness, (unknown) (no (unknown) (unknown) Bimanual Exam- (units (unknown) date) Vagina + Uterus: unknown) uterine size normal and tender (Mild) (unknown) (no (unknown) (unknown) Blood Pressure (units (unknown) date) Location Rt brachial unknown) (unknown) (no (unknown) (unknown) COVID-19 (units (unkno wn) date) unknown) (unknown) (no (unknown) (unknown) COVID19 -Nasal (units (unknown) date) RAPID/Pre-Proc Today unknown) Z01.812 - Encounter for preprocedural (unknown) (no (unknown) (unknown) Cardio (units (unkno wn) date) unknown) (unknown) (no (unknown) (unknown) Chief Complaint (units (unknown) date) unknown) (unknown) (no (unknown) (unknown) Chief Complaint: (units (unknown) date) Pre-op visit unknown) (unknown) (no (unknown) (unknown) Chlamydia infection (unit s (unknown) date) () unknown) (unknown) (no (unknown) (unknown) Conjunctivae: (units ( unknown) date) conjunctivae normal unknown) (unknown) (no (unknown) (unknown) Const (units (unkno wn) date) unknown) (unknown) (no (unknown) (unknown) Counseling and (units (unknown) date) educating the unknown) patient/family/careg iver: 5 (unknown) (no (unknown) (unknown) : 2000 (units (unknown) date) Acct:[id number] unknown) (unknown) (no (unknown) (unknown) Dept at (units (o wn) date) . unknown) (unknown) (no (unknown) (unknown) Details: (units (o wn) date) unknown) (unknown) (no (unknown) (unknown) Documented By: (units (unknown) date) Sushant Bryant MD unknown) 04/05/22 1610 (unknown) (no (unknown) (unknown) Documenting (units (un known) date) clinical information unknown) in EHR/Medical record: 10 (unknown) (no (unknown) (unknown) EOM: EOM intact (units (unknown) date) bilaterally unknown) (unknown) (no (unknown) (unknown) Ears: hearing (units ( unknown) date) grossly normal unknown) bilaterally (unknown) (no (unknown) (unknown) Effort + (units (unkno wn) date) Inspection: normal unknown) respiratory effort and able to speak in complete (unknown) (no (unknown) (unknown) Endometriosis (units ( unknown) date) () unknown) (unknown) (no (unknown) (unknown) Exam (units (unkno wn) date) unknown) (unknown) (no (unknown) (unknown) External Female (units (unknown) date) Exam: normal unknown) external appearance and normal appearance of the (unknown) (no (unknown) (unknown) Eyes (units (unkno wn) date) unknown) (unknown) (no (unknown) (unknown) Face and sinus: (units (unknown) date) face symmetric unknown) (unknown) (no (unknown) (unknown) [facility]) (unknown) (no (unknown) (unknown) GI (units (unkno wn) date) unknown) (unknown) (no (unknown) (unknown) (units (unkno wn) date) unknown) (unknown) (no (unknown) (unknown) General: appearance (unit s (unknown) date) normal, both eyes unknown) and all related structures (unknown) (no (unknown) (unknown) General: (units (unkno wn) date) cooperative, unknown) comfortable and no acute distress (unknown) (no (unknown) (unknown) Ade is a (units (unk nown) date) 21-year-old unknown) nulligravida, LMP in November 2021 who presented in February (unknown) (no (unknown) (unknown) Gynecology Visit (units (unknown) date) unknown) (unknown) (no (unknown) (unknown) HENMT (units (unkno wn) date) unknown) (unknown) (no (unknown) (unknown) HPI (units (unkno wn) date) unknown) (unknown) (no (unknown) (unknown) Head: normal to (units (unknown) date) inspection, unknown) normocephalic and atraumatic (unknown) (no (unknown) (unknown) Heart Sounds: S1 (units (unknown) date) normal, S2 normal unknown) and no murmurs (unknown) (no (unknown) (unknown) Heavy menstrual (units (unknown) date) period (-2018) unknown) (unknown) (no (unknown) (unknown) Height 5 ft 3.5 in (units (unknown) date) unknown) (unknown) (no (unknown) (unknown) [facility] (unit s (unknown) date) back in June unknown) 2020.? No records are available for review (unknown) (no (unknown) (unknown) Inspection: normal (units (unknown) date) to inspection unknown) (unknown) (no (unknown) (unknown) Intake (units (unkno wn) date) unknown) (unknown) (no (unknown) (unknown) Irregular menstrual (unit s (unknown) date) cycle () unknown) (unknown) (no (unknown) (unknown) Judgment: judgment (units (unknown) date) good unknown) (unknown) (no (unknown) (unknown) Last Menstural (units (unknown) date) Cycle + Details unknown) (unknown) (no (unknown) (unknown) Loc: [facility] (units (unkno wn) date) unknown) (unknown) (no (unknown) (unknown) Lymphangioma (units (u nknown) date) unknown) (unknown) (no (unknown) (unknown) Medical History (units (unknown) date) (Reviewed 03/17/22 @ unknown) 08:13 by William Hay RN) (unknown) (no (unknown) (unknown) Medications (units (un known) date) unknown) (unknown) (no (unknown) (unknown) Mental Status: (units (unknown) date) mental status unknown) grossly normal (unknown) (no (unknown) (unknown) Mood: congruent (units (unknown) date) mood unknown) (unknown) (no (unknown) (unknown) Neck (units (unkno wn) date) unknown) (unknown) (no (unknown) (unknown) Neck: normal visual (unit s (unknown) date) inspection unknown) (unknown) (no (unknown) (unknown) Nutritional (units (un known) date) Appearance: average unknown) body habitus (unknown) (no (unknown) (unknown) OB/External + (units ( unknown) date) Speculum: cervical unknown) os open (unknown) (no (unknown) (unknown) Obtaining and/or (units (unknown) date) reviewing separately unknown) obtained history: 5 (unknown) (no (unknown) (unknown) Opioids - Morphine (units (unknown) date) Analogues Allergy unknown) (Intermediate, Verified 04/05/22 16:10) (unknown) (no (unknown) (unknown) Orders (units (unkno wn) date) unknown) (unknown) (no (unknown) (unknown) Orders: (units (unkno wn) date) unknown) (unknown) (no (unknown) (unknown) Orientation: alert (units (unknown) date) and oriented x3 unknown) (unknown) (no (unknown) (unknown) Other Menstrual (units (unknown) date) Period: Other unknown) (unknown) (no (unknown) (unknown) Ovarian cyst (units (u nknown) date) unknown) (unknown) (no (unknown) (unknown) Oxygen Delivery (units (unknown) date) Method simple mask unknown) (unknown) (no (unknown) (unknown) PFSH (units (unkno wn) date) unknown) (unknown) (no (unknown) (unknown) Painful menstrual (units (unknown) date) periods (-2020) unknown) (unknown) (no (unknown) (unknown) Palpation: soft, no (unit s (unknown) date) hepatosplenomegaly unknown) and tender (Marked tenderness RLQ) (unknown) (no (unknown) (unknown) Patient counseled (units (unknown) date) regarding unknown) alternatives, risks, benefits, and potential (unknown) (no (unknown) (unknown) Patient: (units (unkno wn) date) Ade Matthews unknown) MR#: [id number] (unknown) (no (unknown) (unknown) Pelvic Support: (units (unknown) date) normal unknown) (unknown) (no (unknown) (unknown) Performing a (units (u nknown) date) medically unknown) appropriate exam and/or evaluation: 5 (unknown) (no (unknown) (unknown) Plan (units (unkno wn) date) unknown) (unknown) (no (unknown) (unknown) Position Sitting (units (unknown) date) unknown) (unknown) (no (unknown) (unknown) Preparing to see (units (unknown) date) the patient, i.e., unknown) chart review, review of tests: 5 (unknown) (no (unknown) (unknown) Problem-specific (units (unknown) date) ROS positives unknown) included with the HPI (unknown) (no (unknown) (unknown) Psych (units (unkno wn) date) unknown) (unknown) (no (unknown) (unknown) Pulse 80 (units (unkno wn) date) unknown) (unknown) (no (unknown) (unknown) Pulse Oximetry (%) (units (unknown) date) 100 unknown) (unknown) (no (unknown) (unknown) ROS Narrative (units ( unknown) date) unknown) (unknown) (no (unknown) (unknown) ROS Narrative: (units (unknown) date) unknown) (unknown) (no (unknown) (unknown) ROS (units (unkno wn) date) unknown) (unknown) (no (unknown) (unknown) Rate: regular rate (units (unknown) date) unknown) (unknown) (no (unknown) (unknown) Reason For Visit (units (unknown) date) unknown) (unknown) (no (unknown) (unknown) Resp (units (unkno wn) date) unknown) (unknown) (no (unknown) (unknown) Rhythm: regular (units (unknown) date) rhythm unknown) (unknown) (no (unknown) (unknown) S/P ACL (units (unkno wn) date) reconstruction unknown) (-06/08/21) (unknown) (no (unknown) (unknown) Sclera: sclerae (units (unknown) date) normal unknown) (unknown) (no (unknown) (unknown) Signed By: (units (unk nown) date) <Electronically unknown) signed by Sushant Bryant MD> (unknown) (no (unknown) (unknown) Signed (units (unkno wn) date) unknown) (unknown) (no (unknown) (unknown) Smoking Status: (units (unknown) date) Never smoker unknown) (unknown) (no (unknown) (unknown) Speculum Exam - (units (unknown) date) Cervix: normal unknown) appearance of the cervix and cervical os open (unknown) (no (unknown) (unknown) Speculum Exam - (units (unknown) date) Vagina: normal unknown) appearance of the vagina and normal vaginal (unknown) (no (unknown) (unknown) Speculum Exam: (units (unknown) date) cervical os open unknown) (unknown) (no (unknown) (unknown) Speech and (units (unk nown) date) Movement: speech and unknown) movement normal (unknown) (no (unknown) (unknown) Status: Acute (units ( unknown) date) unknown) (unknown) (no (unknown) (unknown) Surgical History (units (unknown) date) (Reviewed 03/17/22 @ unknown) 08:13 by William Hay RN) (unknown) (no (unknown) (unknown) TOA (tubo-ovarian (units (unknown) date) abscess) (-06/28/21) unknown) (unknown) (no (unknown) (unknown) Temp 98.7 F (units (un known) date) unknown) (unknown) (no (unknown) (unknown) This note may have (units (unknown) date) been all or unknown) partially generated using voice recognition (unknown) (no (unknown) (unknown) Thought Content: (units (unknown) date) normal unknown) (unknown) (no (unknown) (unknown) Thought Process: (units (unknown) date) normal unknown) (unknown) (no (unknown) (unknown) Time Coding Minutes (unit s (unknown) date) Spent: (must be on unknown) same date of service/appointment) (unknown) (no (unknown) (unknown) Time Spent (units (unk nown) date) unknown) (unknown) (no (unknown) (unknown) Tobacco + Substance (unit s (unknown) date) Use unknown) (unknown) (no (unknown) (unknown) Tobacco Status (units (unknown) date) unknown) (unknown) (no (unknown) (unknown) Total Time: 30 (units (unknown) date) unknown) (unknown) (no (unknown) (unknown) Urethra: normal (units (unknown) date) appearance of the unknown) urethra (unknown) (no (unknown) (unknown) Visit Reasons: Pre (units (unknown) date) op w/covid test? unknown) (unknown) (no (unknown) (unknown) Vitals (units (unkno wn) date) unknown) (unknown) (no (unknown) (unknown) Weight 148 lb (units ( unknown) date) unknown) (unknown) (no (unknown) (unknown) With full (units (unkn own) date) understanding of the unknown) above, a written consent was executed, signed, (unknown) (no (unknown) (unknown) and therefore (units ( unknown) date) discontinue the oral unknown) antibiotics.? As a result she only had (unknown) (no (unknown) (unknown) and witnessed this (units (unknown) date) date. unknown) (unknown) (no (unknown) (unknown) ay occur. (units (unkn own) date) Occasional unknown) wrong-word or 'sound-alike' substitutions may have (unknown) (no (unknown) (unknown) bilaterally (units (un known) date) unknown) (unknown) (no (unknown) (unknown) case will not be (units (unknown) date) known until the unknown) procedure itself and the findings at that time. (unknown) (no (unknown) (unknown) clindamycin HCl 150 (unit s (unknown) date) mg capsule 150 mg PO unknown) DAILY #30 caps 03/17/22 [Rx Confirmed (unknown) (no (unknown) (unknown) complications (units ( unknown) date) associated with unknown) diagnostic laparoscopy with possible right (unknown) (no (unknown) (unknown) considering all (units (unknown) date) options, the patient unknown) is proceeding to diagnostic laparoscopy (unknown) (no (unknown) (unknown) counseling, and (units (unknown) date) consent. unknown) (unknown) (no (unknown) (unknown) discharge (units (unkn own) date) unknown) (unknown) (no (unknown) (unknown) doxycycline Adverse (unit s (unknown) date) Reaction unknown) (Intermediate, Verified 04/05/22 16:10) (unknown) (no (unknown) (unknown) follow-up [facility] (units (unknown) date[facility] at which (unknown) (no (unknown) (unknown) following IV (units (u nknown) date) antibiotics but unknown) apparently had an adverse reaction to Vibramycin (unknown) (no (unknown) (unknown) has had only very (units (unknown) date) irregular cycles unknown) since the TOA or as she had regular (unknown) (no (unknown) (unknown) have occurred. If (units (unknown) date) there are any unknown) questions, please contact the Medical Records (unknown) (no (unknown) (unknown) incapacitating (units (unknown) date) pain. She presents unknown) today for her preoperative evaluation, (unknown) (no (unknown) (unknown) incompletely (units (u nknown) date) treated TOA didn't unknown) provide any improvement in her pain and after (unknown) (no (unknown) (unknown) intravenous (units (un known) date) antibiotic therapy unknown) and no follow-up oral antibiotic therapy.? Since (unknown) (no (unknown) (unknown) laboratory (units (unk nown) date) examination, Z20.822 unknown) - Contact with and (suspected) exposure to (unknown) (no (unknown) (unknown) necessitating (units ( unknown) date) evaluation/treatment unknown) by General Surgery but whether that is the (unknown) (no (unknown) (unknown) occurred due to the (unit s (unknown) date) inherent limitations unknown) of voice recognition software. Please (unknown) (no (unknown) (unknown) of that (units (unkno wn) date) hospitalization but unknown) apparently she was treated with IV antibiotics and (unknown) (no (unknown) (unknown) ovary. 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 She was placed on oral antibiotics (unknown) (no (unknown) (unknown) predictable periods (unit s (unknown) date) up until that time.? unknown) She presented in consultation in (unknown) (no (unknown) (unknown) promethazine 25 mg (units (unknown) date) tablet 25 mg PO Q6H unknown) PRN 11/30/21 [History Confirmed 04/05/22] (unknown) (no (unknown) (unknown) rash (units (unkno wn) date) unknown) (unknown) (no (unknown) (unknown) read the note (units ( unknown) date) carefully and unknown) recognize, using context, where these substitutions (unknown) (no (unknown) (unknown) right adnexa) (units ( unknown) date) tender and soft on unknown) the right (unknown) (no (unknown) (unknown) salpingo-oophorecto (unit s (unknown) date) my. Patient also unknown) understands there may be bowel involvement (unknown) (no (unknown) (unknown) sentences (units (unkn own) date) unknown) (unknown) (no (unknown) (unknown) software. Although (units (unknown) date) every effort is made unknown) to edit content, financial solutions advisor errors m (unknown) (no (unknown) (unknown) that time she is had (unit s (unknown) date) persistent right unknown) lower quadrant pain which is noncyclic and (unknown) (no (unknown) (unknown) time she underwent (units (unknown) date) abdominal/pelvic CT unknown) and pelvic ultrasound which were largely (unknown) (no (unknown) (unknown) tubo-ovarian (units (u nknown) date) abscess due to unknown) chlamydia treated as an inpatient at [facility] (unknown) (no (unknown) (unknown) unremarkable with (units (unknown) date) the exception of a 3 unknown) cm hemorrhagic cyst within the right (unknown) (no (unknown) (unknown) urethra (units (unkno wn) date) unknown) (unknown) (no (unknown) (unknown) vomitt (units (unkno wn) date) unknown) (unknown) (no (unknown) (unknown) with possible right (unit s (unknown) date) salpingo-oophorectom unknown) y for persistent and at times Result panel 24 (unknown) (no date) (unknown) (unknown) Negative (units (unkn own) unknown) (unknown) (no date) (unknown) (unknown) Negative (units (unkn own) unknown) Result panel 25 (unknown) (no (unknown) (unknown) (no value) (units (unk nown) date) unknown) (unknown) (no (unknown) (unknown) [id number] (units (unkno wn) date) unknown) (unknown) (no (unknown) (unknown) 04/07/22 1355 (units ( unknown) date) unknown) (unknown) (no (unknown) (unknown) Age/Sex: 21 / F (units (unknown) date) unknown) (unknown) (no (unknown) (unknown) COVID-19 (units (unkno wn) date) status: Negative unknown) (unknown) (no (unknown) (unknown) COVID-19 (units (unkno wn) date) unknown) (unknown) (no (unknown) (unknown) Changes to H+P: (units (unknown) date) No unknown) (unknown) (no (unknown) (unknown) Criteria for (units (u nknown) date) continued unknown) procedure: Non-surgical alternatives not available or (unknown) (no (unknown) (unknown) : 2000 (units (unknown) date) Acct:[id number] unknown) (unknown) (no (unknown) (unknown) Date of (units (unkno wn) date) Service: unknown) 04/07/22 (unknown) (no (unknown) (unknown) History + (units (unkn own) date) Physical unknown) reviewed/Exam performed by Physician: Yes (unknown) (no (unknown) (unknown) Interval Note (units ( unknown) date) unknown) (unknown) (no (unknown) (unknown) [facility] (units (unknown) date) [address] [place] [address] unknown) [place] [address] (unknown) (no (unknown) (unknown) Patient: (units (unkno wn) date) Aed Matthews unknown) MR#: [id number] (unknown) (no (unknown) (unknown) Pre-operative (units ( unknown) date) Note unknown) (unknown) (no (unknown) (unknown) Provider: (units (unkn own) date) Sushant Bryant unknown) (unknown) (no (unknown) (unknown) Result (units (unkno wn) date) date/Date tested unknown) (Pos, Neg/Pending): 04/06/22 (unknown) (no (unknown) (unknown) Signed (units (unkno wn) date) By:<Electronical unknown) ly signed by Sushant Bryant MD> (unknown) (no (unknown) (unknown) appropriate per (units (unknown) date) current SOC unknown) Result panel 26 (unknown) (no date) (unknown) (unknown) (no value) (units (un known) unknown) (unknown) (no date) (unknown) (unknown) [id number] (units (unkn own) unknown) (unknown) (no date) (unknown) (unknown) Actual (units (unkn own) Procedure Side unknown) Surgeon (unknown) (no date) (unknown) (unknown) Age/Sex: 21 / (units (unknown) F unknown) (unknown) (no date) (unknown) (unknown) Chronic pelvic (units (unknown) pain unknown) (unknown) (no date) (unknown) (unknown) : (units (unkn own) 2000 unknown) Acct:[id number] (unknown) (no date) (unknown) (unknown) Date of (units (unkn own) Service: unknown) 04/07/22 (unknown) (no date) (unknown) (unknown) Date of (units (unkn own) procedure: unknown) 04/07/22 (unknown) (no date) (unknown) (unknown) [facility] [address] unknown) [address] [place] [id number] (unknown) (no date) (unknown) (unknown) Operation (units (unk nown) Date: 04/07/22 unknown) 13:15 (unknown) (no date) (unknown) (unknown) Operative (units (unk nown) Date/Time/Diagn unknown) oses (unknown) (no date) (unknown) (unknown) Operative Note (units (unknown) unknown) (unknown) (no date) (unknown) (unknown) Patient: (units (unkn own) Ade Matthews unknown) E MR#: [id number] (unknown) (no date) (unknown) (unknown) Post-op (units (unkn own) diagnosis: unknown) other (JARAD; Extensive pelvic adhesions, right hydrosalpinx) (unknown) (no date) (unknown) (unknown) Pre-op (units (unkn own) diagnosis: unknown) Chronic right lower quadrant pain (unknown) (no date) (unknown) (unknown) Procedure + (units (u nknown) Clinicians unknown) (unknown) (no date) (unknown) (unknown) Procedure: (units (un known) unknown) (unknown) (no date) (unknown) (unknown) Procedures (units (un known) unknown) (unknown) (no date) (unknown) (unknown) Provider: (units (unk nown) Sushant Bryant unknown) (unknown) (no date) (unknown) (unknown) Signed By: (units (un known) unknown) (unknown) (no date) (unknown) (unknown) Time of (units (unkn own) procedure: unknown) 14:15 (unknown) (no date) (unknown) (unknown) endometrial (units (u nknown) implants Sushant unknown) Juan Bryant MD (unknown) (no date) (unknown) (unknown) p Laparoscopy (units (unknown) with poss. unknown) Right Salpingectomy, lysis of adhesions, fulgeration Result panel 27 (unknown) (no (unknown) (unknown) (no value) (units (unk nown) date) unknown) (unknown) (no (unknown) (unknown) [id number] (units (unkno wn) date) unknown) (unknown) (no (unknown) (unknown) 04/07/22 1627 (units ( unknown) date) unknown) (unknown) (no (unknown) (unknown) 2021 with an 8 (units (unknown) date) month history of unknown) right lower quadrant pain following right-sided (unknown) (no (unknown) (unknown) 5 mm bladeless (units (unknown) date) trocar and sleeve unknown) were then placed through the incision into the (unknown) (no (unknown) (unknown) Actual Procedure (units (unknown) date) Side Surgeon unknown) (unknown) (no (unknown) (unknown) Age/Sex: 21 / F (units (unknown) date) unknown) (unknown) (no (unknown) (unknown) Anesthesia Type: (units (unknown) date) General unknown) (unknown) (no (unknown) (unknown) Applied: catheter (units (unknown) date) (Straight) unknown) (unknown) (no (unknown) (unknown) Appropriate (units (un known) date) photographically unknown) documentation was obtained. The right adnexa was (unknown) (no (unknown) (unknown) Landing Gear Mechanic: Nedra (units (unknown) date) Megan Dacosta unknown) (unknown) (no (unknown) (unknown) Blood products (units (unknown) date) transfused: none unknown) (unknown) (no (unknown) (unknown) Both pericolic (units (unknown) date) gutters are without unknown) adhesions. The appendix could not be (unknown) (no (unknown) (unknown) Chronic pelvic (units (unknown) date) pain unknown) (unknown) (no (unknown) (unknown) Closure Type: (units ( unknown) date) primary unknown) (unknown) (no (unknown) (unknown) Complications: (units (unknown) date) none unknown) (unknown) (no (unknown) (unknown) Condition: stable (units (unknown) date) unknown) (unknown) (no (unknown) (unknown) : 2000 (units (unknown) date) Acct:[id number] unknown) (unknown) (no (unknown) (unknown) Date of Service: (units (unknown) date) 04/07/22 unknown) (unknown) (no (unknown) (unknown) Date of procedure: (units (unknown) date) 04/07/22 unknown) (unknown) (no (unknown) (unknown) Disposition: PACU (units (unknown) date) unknown) (unknown) (no (unknown) (unknown) Estimated blood (units (unknown) date) loss (mL): 25 unknown) (unknown) (no (unknown) (unknown) Examination under (units (unknown) date) anesthesia showed unknown) the skin overlying the fourchette and (unknown) (no (unknown) (unknown) Findings: (units (unkn own) date) unknown) (unknown) (no (unknown) (unknown) Ade is a (units (unk nown) date) 21-year-old unknown) nulligravida, LMP in November 2021 who presented in February (unknown) (no (unknown) (unknown) Hospital in (units (un known) date) [facility] in unknown) June 2021.? No records are available for review (unknown) (no (unknown) (unknown) Indications: (units (u nknown) date) unknown) (unknown) (no (unknown) (unknown) [facility] (units (unknown) date) [address] [place] [address] unknown) [place] [address] (unknown) (no (unknown) (unknown) Operation Date: (units (unknown) date) 04/07/22 13:15 unknown) (unknown) (no (unknown) (unknown) Operative (units (unkn own) date) Date/Time/Diagnoses unknown) (unknown) (no (unknown) (unknown) Operative Note (units (unknown) date) unknown) (unknown) (no (unknown) (unknown) Operative Notes (units (unknown) date) unknown) (unknown) (no (unknown) (unknown) Patient: (units (unkno wn) date) Ade Matthews E unknown) MR#: [id number] (unknown) (no (unknown) (unknown) Plan for (units (unkno wn) date) aftercare: unknown) (unknown) (no (unknown) (unknown) Post-op diagnosis: (units (unknown) date) other (JARAD; unknown) Extensive pelvic adhesions, right hydrosalpinx) (unknown) (no (unknown) (unknown) Post-operative (units (unknown) date) unknown) (unknown) (no (unknown) (unknown) Pre-op diagnosis: (units (unknown) date) Chronic right lower unknown) quadrant pain (unknown) (no (unknown) (unknown) Procedure + (units (un known) date) Clinicians unknown) (unknown) (no (unknown) (unknown) Procedure in (units (u nknown) date) detail: unknown) (unknown) (no (unknown) (unknown) Procedure: (units (unk nown) date) unknown) (unknown) (no (unknown) (unknown) Procedures (units (unk nown) date) unknown) (unknown) (no (unknown) (unknown) Provider: (units (unkn own) date) Sushant Bryant MD unknown) (unknown) (no (unknown) (unknown) Routine postop (units (unknown) date) care with plans for unknown) follow-up in 2 weeks. (unknown) (no (unknown) (unknown) Signed (units (unkno wn) date) By:<Electronically unknown) signed by Sushant Bryant MD> (unknown) (no (unknown) (unknown) Specimen(s): left (units (unknown) date) tube unknown) (unknown) (no (unknown) (unknown) Surgeon: Sushant Martinez (units (unknown) date) Manny unknown) (unknown) (no (unknown) (unknown) Time of procedure: (units (unknown) date) 14:15 unknown) (unknown) (no (unknown) (unknown) With the patient (units (unknown) date) under satisfactory unknown) general anesthesia in the modified dorsal (unknown) (no (unknown) (unknown) a grasping forcep. 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 (units (unknown) date) Proper placement of unknown) the sleeve was then confirmed (unknown) (no (unknown) (unknown) adhesions and (units ( unknown) date) right salpingectomy unknown) was performed. (unknown) (no (unknown) (unknown) adhesions in the (units (unknown) date) pelvis. unknown) Photographic documentation before and after lysis of (unknown) (no (unknown) (unknown) adhesions. The (units (unknown) date) fimbria on the left unknown) however was not phimotic or severely scarred (unknown) (no (unknown) (unknown) adhesions. The (units (unknown) date) left adnexa was unknown) less affected but also involved with filmy (unknown) (no (unknown) (unknown) and the fallopian (units (unknown) date) tube on the left unknown) while involved with some filmy adhesions did (unknown) (no (unknown) (unknown) and therefore (units ( unknown) date) discontinue the unknown) oral antibiotics.? As a result she only had (unknown) (no (unknown) (unknown) applied. The (units (u nknown) date) patient was unknown) awakened and transferred to the PACU for a period of (unknown) (no (unknown) (unknown) approximately 1.0 (units (unknown) date) cm and its unknown) appearance is consistent with hydrosalpinx. The (unknown) (no (unknown) (unknown) approximately 4-5 (units (unknown) date) cm and contains a unknown) unilocular, simple follicular cyst which was (unknown) (no (unknown) (unknown) aspect down into (units (unknown) date) the posterior unknown) cul-de-sac. The right ovary is enlarged to (unknown) (no (unknown) (unknown) attention was then (units (unknown) date) turned to unknown) performance of the laparoscopy. The umbilicus was (unknown) (no (unknown) (unknown) be a (units (unkno wn) date) hyperkeratotic unknown) lesion of the cervix between 9:00 and 11:00. Laparoscopic (unknown) (no (unknown) (unknown) bleeding or (units (un known) date) remaining unknown) adhesions. Neither was evident and attention was then (unknown) (no (unknown) (unknown) by excision or (units (unknown) date) electro unknown) fulguration. The ovary was freed from the posterior (unknown) (no (unknown) (unknown) canal was then (units ( unknown) date) dilated unknown) sufficiently to admit a Zumi manipulator which was placed (unknown) (no (unknown) (unknown) cervix. This was (units (unknown) date) destroyed with unknown) electro fulguration. Filmy adhesions involving (unknown) (no (unknown) (unknown) completion of the (units (unknown) date) case the right unknown) ovary was freely mobile and uninvolved with (unknown) (no (unknown) (unknown) considering all (units (unknown) date) options, the unknown) patient is proceeding to diagnostic laparoscopy (unknown) (no (unknown) (unknown) course of surgery (units (unknown) date) following removal unknown) of the right fallopian tube and at the (unknown) (no (unknown) (unknown) cul-de-sac and (units (unknown) date) there were no unknown) remaining adhesions evident on the surface of the (unknown) (no (unknown) (unknown) decision was made (units (unknown) date) to remove the tube. unknown) Adhesions around the distal tube were (unknown) (no (unknown) (unknown) endometrial (units (un known) date) implants Sushant E unknown) MD Manny (unknown) (no (unknown) (unknown) fallopian tube was (units (unknown) date) coagulated and unknown) divided at its base using the PowerSeal. The (unknown) (no (unknown) (unknown) filmy adhesions (units (unknown) date) which were lysed unknown) during the course of the procedure. There was (unknown) (no (unknown) (unknown) fimbria varicose (units (unknown) date) with that unknown) dissection carried carefully underneath the tube (unknown) (no (unknown) (unknown) follow-up from an (units (unknown) date) [facility] at which (unknown) (no (unknown) (unknown) following IV (units (u nknown) date) antibiotics but unknown) apparently had an adverse reaction to Vibramycin (unknown) (no (unknown) (unknown) for any other (units ( unknown) date) abnormalities or unknown) points of bleeding. None were evident and (unknown) (no (unknown) (unknown) fully visualized (units (unknown) date) and it was unknown) determined that the tube itself was not only the (unknown) (no (unknown) (unknown) gallbladder is (units (unknown) date) visible but unknown) nondistended. Both hemidiaphragms are unremarkable. (unknown) (no (unknown) (unknown) had a cobblestone (units (unknown) date) type of appearance unknown) without apparent focal lesions. In the (unknown) (no (unknown) (unknown) has had only very (units (unknown) date) irregular cycles unknown) since the TOA or as she had regular (unknown) (no (unknown) (unknown) hemipelvis into (units (unknown) date) the cul-de-sac with unknown) all areas of filmy adhesions either excised (unknown) (no (unknown) (unknown) however is encased (units (unknown) date) in adhesions and unknown) the distal tube is convoluted by adhesions (unknown) (no (unknown) (unknown) in the usual (units (u nknown) date) manner. The unknown) tenaculum was removed along with the speculum and (unknown) (no (unknown) (unknown) incapacitating (units (unknown) date) pain.? She presents unknown) today for her scheduled surgery. (unknown) (no (unknown) (unknown) incisions were (units (unknown) date) then closed with unknown) 4-0 Monocryl in inverted interrupted (unknown) (no (unknown) (unknown) incompletely (units (u nknown) date) treated TOA didn't unknown) provide any improvement in her pain and after (unknown) (no (unknown) (unknown) infiltrated with (units (unknown) date) 0.5% Marcaine with unknown) epinephrine and a 1 cm vertical incision was (unknown) (no (unknown) (unknown) inspection of the (units (unknown) date) upper abdomen is unknown) unremarkable. The liver edges smooth and the (unknown) (no (unknown) (unknown) insufflate the (units (unknown) date) abdomen with carbon unknown) dioxide and once sufficiently insufflated, a (unknown) (no (unknown) (unknown) intravenous (units (un known) date) antibiotic therapy unknown) and no follow-up oral antibiotic therapy.? Since (unknown) (no (unknown) (unknown) involving the (units ( unknown) date) cecum. The anterior unknown) cul-de-sac is free of abnormalities. The (unknown) (no (unknown) (unknown) irrigated with (units (unknown) date) sterile saline and unknown) carefully inspected for any evidence of (unknown) (no (unknown) (unknown) laparoscopically (units (unknown) date) and a 2nd and 3rd 5 unknown) mm port was placed in the right and left (unknown) (no (unknown) (unknown) lateral to the (units (unknown) date) insertion of the unknown) left uterosacral ligament into the posterior (unknown) (no (unknown) (unknown) left ovary. A (units ( unknown) date) small area of unknown) superficial endometriosis at the base of the left (unknown) (no (unknown) (unknown) lithotomy (units (unkn own) date) position, the unknown) perineum, vagina and abdomen were prepped and draped in (unknown) (no (unknown) (unknown) lysed with a (units (un known) date) bipolar PowerSeal unknown) device and the fimbria varicose was elevated with (unknown) (no (unknown) (unknown) made in the skin (units (unknown) date) of the inferior unknown) umbilicus. A Veress needle was then used to (unknown) (no (unknown) (unknown) mid quadrants (units ( unknown) date) using a similar unknown) technique. Using a 3 puncture technique the (unknown) (no (unknown) (unknown) not appear to be (units (unknown) date) consistent with a unknown) hydrosalpinx. No test of tubal patency on (unknown) (no (unknown) (unknown) observation after (units (unknown) date) having tolerated unknown) procedure well. (unknown) (no (unknown) (unknown) of that (units (unkno wn) date) hospitalization but unknown) apparently she was treated with IV antibiotics and (unknown) (no (unknown) (unknown) or coagulated with (units (unknown) date) bipolar current unknown) using the PowerSeal. The pelvis was then (unknown) (no (unknown) (unknown) ovary.? 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 Right unknown) Salpingectomy, lysis of adhesions, fulgeration (unknown) (no (unknown) (unknown) pathologic (units (unk nown) date) specimen. unknown) Adhesiolysis was then carried out throughout the right (unknown) (no (unknown) (unknown) pelvis and abdomen (units (unknown) date) were thoroughly unknown) visualized with the findings as noted above. (unknown) (no (unknown) (unknown) percutaneous (units (u nknown) date) drainage of the unknown) abscess.? She was placed on oral antibiotics (unknown) (no (unknown) (unknown) performed with the (units (unknown) date) findings as noted unknown) above. A speculum was inserted in the (unknown) (no (unknown) (unknown) performed. The (units (unknown) date) pelvis was then unknown) thoroughly irrigated once again and inspected (unknown) (no (unknown) (unknown) perineal body to (units (unknown) date) be somewhat unknown) hyperkeratotic in appearance. The vaginal mucosa (unknown) (no (unknown) (unknown) photographic (units (u nknown) date) documentation post unknown) lysis of adhesion was performed. The (unknown) (no (unknown) (unknown) pneumoperitoneum (units (unknown) date) was then vented and unknown) the laparoscopic sleeves removed. The port (unknown) (no (unknown) (unknown) posterior aspect (units (unknown) date) of the uterus were unknown) taken down with the PowerSeal device either (unknown) (no (unknown) (unknown) predictable (units (un known) date) periods up until unknown) that time.? She presented in consultation in (unknown) (no (unknown) (unknown) probable cause of (units (unknown) date) the pain the unknown) patient has been experiencing but was beyond (unknown) (no (unknown) (unknown) punctured and (units ( unknown) date) drained during the unknown) course of the surgery. The right adnexa (unknown) (no (unknown) (unknown) repair due to the (units (unknown) date) damage resulting unknown) from her tubo-ovarian abscess and the (unknown) (no (unknown) (unknown) right ovary itself (units (unknown) date) is bound by filmy unknown) adhesions to the right ovarian fossa and (unknown) (no (unknown) (unknown) subcuticular (units (u nknown) date) stitches, skin glue unknown) was applied, and appropriate dressings were (unknown) (no (unknown) (unknown) that time she is (units (unknown) date) had persistent unknown) right lower quadrant pain which is noncyclic and (unknown) (no (unknown) (unknown) the left was (units (u nknown) date) performed however. unknown) The left ovary was also partially involved with (unknown) (no (unknown) (unknown) the pelvic (units (unk nown) date) sidewall. All unknown) adhesions in the right adnexa were lysed during the (unknown) (no (unknown) (unknown) the posterior (units ( unknown) date) cul-de-sac were unknown) excised and/or destroyed with electro fulguration (unknown) (no (unknown) (unknown) the usual fashion. (units (unknown) date) A pre-surgical unknown) safety time-out was then taken in accordance (unknown) (no (unknown) (unknown) throughout its (units (unknown) date) length, across the unknown) mesosalpinx, to the cornua where the right (unknown) (no (unknown) (unknown) time she underwent (units (unknown) date) abdominal/pelvic CT unknown) and pelvic ultrasound which were largely (unknown) (no (unknown) (unknown) tube was then (units ( unknown) date) removed through one unknown) of the 5 mm ports and submitted as a (unknown) (no (unknown) (unknown) tubo-ovarian (units (u nknown) date) abscess due to unknown) chlamydia treated as an inpatient at [facility] (unknown) (no (unknown) (unknown) turned to the left (units (unknown) date) side of the pelvis. unknown) Adhesions involving the tube and the (unknown) (no (unknown) (unknown) unremarkable with (units (unknown) date) the exception of a unknown) 3 cm hemorrhagic cyst within the right (unknown) (no (unknown) (unknown) upper vagina the (units (unknown) date) cobblestone unknown) appearance is more pronounced and there appears to (unknown) (no (unknown) (unknown) using bipolar (units ( unknown) date) current. At the unknown) completion of the case there were no remaining (unknown) (no (unknown) (unknown) uterosacral (units (unk nown) date) ligament was then unknown) grasped with the [employer] and electro fulguration (unknown) (no (unknown) (unknown) uterus is normal (units (unknown) date) sized and mobile unknown) with filmy adhesions involving the posterior (unknown) (no (unknown) (unknown) vagina and a (units (u nknown) date) single-tooth unknown) tenaculum was applied to the cervix. The endocervical (unknown) (no (unknown) (unknown) visualized as it (units (unknown) date) appears to be unknown) retrocecal. There were no significant adhesions (unknown) (no (unknown) (unknown) with [facility] (units (un known) date) [facility] unknown) protocols. An examination under anesthesia was (unknown) (no (unknown) (unknown) with a small (units (u nknown) date) amount of residual unknown) fimbria visible but the tube itself dilated to (unknown) (no (unknown) (unknown) with possible (units ( unknown) date) right unknown) salpingo-oophorecto my for persistent and at times Social History No information. Vital Signs No information.
[2022-04-07 23:49] LABS: BILIRUBIN,URINE NEGATIVE (NEGATIVE); CLARITY,URINE CLEAR (CLEAR); GLUCOSE, URINE (UA) 100 mg/dL (NEGATIVE); KETONES,URINE (UA) NEGATIVE (NEGATIVE); LEUKOCYTE ESTERASE, URINE NEGATIVE (NEGATIVE); NITRITE,URINE NEGATIVE (NEGATIVE); OCCULT BLOOD,URINE NEGATIVE (NEGATIVE); PH,URINE 7.5 PH (5.0-7.5); PROTEIN,URINE NEGATIVE (NEGATIVE); UROBILINOGEN,URINE 0.2 (NORMAL) E.U./dL (NORMAL)
--- NOTE | 2022-04-08 00:06 | ED Physician Documentation ---
PD HPI FEMALE - Stated complaint Stated Complaint: FEMALE - Chief complaint Chief Complaint: General - History obtained from History obtained from: Patient - Additional information Additional information: Patient is a 21-year-old female presenting for evaluation of inability to urinate after surgery today. Patient had laparoscopic procedure to have her right ovary and tube removed at [facility]. She was able to urinate a's very very small amount after her surgery at 3 PM but has not been able to urinate since then. She feels the need to urinate but has not been able to initiate a stream.She feels discomfort over her bladder. She denies fever, chest pain, difficulty breathing, vomiting. Review of Systems Constitutional: denies: Fever Nose: denies: Congestion Cardiac: denies: Chest pain / pressure Respiratory: denies: Dyspnea GI: reports: Abdominal Pain. 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: Other - Present Medications Home Medications: Ambulatory Orders Medication Instructions Recorded Confirmed No Known Home Medications 02/17/22 02/17/22 - Allergies Allergies/Adverse Reactions: Allergies Allergy/AdvReac Type Severity Reaction Status Date / Time doxycycline Allergy Unknown Verified 02/17/22 04:14 lactose Allergy Unknown Verified 04/07/22 23:30 morphine Allergy Unknown Verified 02/17/22 04:14 Morpholine Analogues Allergy Hives Verified 02/17/22 04:14 Dairy Allergy Unknown Uncoded 02/17/22 04:14 - Social History Does the pt smoke?: No Smoking Status: Never smoker Does the pt drink ETOH?: No Does the pt have substance abuse?: No - Immunizations Immunizations are current?: Yes - POLST Patient has POLST: No PD ED PE NORMAL - General General: Alert and oriented X 3, Well developed/nourished, Other (Appears uncomfortable) - HEENT HEENT: Atraumatic - Neck Neck: Supple, no meningeal sign - Cardiac Cardiac: RRR - Respiratory Respiratory: No respiratory distress - Abdomen Abdomen: Normal bowel sounds, Soft, Non distended, Other (Suprapubic tenderness, clear and dry dressings in place over port incisions) - Back Back: No CVA TTP - Derm Derm: Warm and dry - Extremities Extremities: No edema Results - Vitals Vitals: Vital Signs - 24 hr 04/07/22 23:28 Temperature 36.6 C Heart Rate 66 Respiratory 14 Rate Blood Pressure 128/67 O2 Saturation 100 Oxygen O2 Source Room air - Labs Labs: Laboratory Tests 04/07/22 23:45 Urine Color YELLOW Urine Clarity CLEAR Urine pH 7.5 Ur Specific [place] 1.010 Urine Protein NEGATIVE Urine Glucose (UA) 100 H Urine Ketones NEGATIVE Urine Occult Blood NEGATIVE Urine Nitrite NEGATIVE Urine Bilirubin NEGATIVE Urine Urobilinogen 0.2 (NORMAL) Ur Leukocyte Esterase NEGATIVE Ur Microscopic Review NOT INDICATED Urine Culture Comments NOT INDICATED PD MEDICAL DECISION MAKING - ED course ED course: 1215 - At discharge, patient stated that she wanted the catheter removed as she could not tolerate the burning discomfort that she was having with it. I reviewed the risks of removing the catheter too early Which include continued urinary retention and inability to void. Patient understands that she may have to return again for the catheter to be placed if she is not able to urinate. She understands these risks and still would like to have it removed. Patient presenting with difficulty in urinating after surgery today. Bain catheter was inserted and greater than 500 mL of urine Was drained. Repeat abdominal exam after catheter in place is benign.She was feeling better with bladder drained. Discussed need for catheter to stay in but patient reported burning discomfort at insertion site and wanted it removed. Patient understands risks of having further urinary retention. Departure - Departure Disposition: 01 Home, Self Care Clinical Impression: Urinary retention Condition: Stable Instructions: ED Retention Urinary Female Comments: You were having difficulty urinating and a Bain catheter was placed. We had recommended keeping the catheter in place to allow your bladder a chance to recover and start working again. However, you have chosen to have the catheter removed tonight understanding the risk that your bladder may still not be ready to function and you may again not be able to urinate. If you are not able to urinate by morning or have any worsening discomfort prior to that then please return to the emergency department. Discharge Date/Time: 04/08/22 00:32
== END 2022-04-08 00:32 | disposition home or self-care (01) ==
LOC: ED 23:21
DX: N99.89 Other postprocedural complications and disorders of genitourinary system (principal); R33.9 Retention of urine, unspecified
CPT/HCPCS: 51702; 81001; 81003; 87086; 99282; 99283

== ENCOUNTER 2022-04-10 00:11 | Emergency (ER) | payer OTHER ==
--- OUTSIDE RECORDS SUMMARY | 2022-04-10 00:22 | EXTERNAL MEDICAL SUMMARY RPT | Continuity of Care Document ---
:2000 Author Organization [place] Address [address] [place] [address] Phone Allergies and Intolerances date description facility type (no date) Opioids - Morphine Analogues [facility] (unknown) (no date) doxycycline [facility] (unknown) Encounters No information. Functional Status No information. Immunizations No information. Medications No information. Problems No information. Procedures No information. Results/Labs test date author facility value unit interpret ation Result panel 1 (unknown) (no (unknown) (unknown) (no value) (units (unk nown) date) unknown) (unknown) (no (unknown) (unknown) [place], [place] (units ( unknown) date) [id number] unknown) (unknown) (no (unknown) (unknown) Draft (units [...] wn) date) unknown) (unknown) (no (unknown) (unknown) [id number] (units (unkno wn) date) unknown) (unknown) (no [...] (unknown) (unknown) : 2000 (units (unknown) date) Acct:[id number] unknown) (unknown) (no (unknown) (unknown) Dept at [...] Josefina Matthew MD) (unknown) (no (unknown) (unknown) Opioids - [...] ovarian unknown) cyst/pelvic pain. had US at [facility] 12/16/21 for abnormal (unknown) (no (unknown) (unknown) read the note (units ( unknown) date) carefully and unknown) recognize, using context, where these substitutions (unknown) (no (unknown) (unknown) software. (units (unkn own) date) Although every unknown) effort is made to edit content, radiographer technologist errors (unknown) (no (unknown) (unknown) uterine (units [...] (unknown) [place] (units ( unknown) date) [address] unknown) (unknown) (no (unknown) (unknown) Draft (units [...] wn) date) unknown) (unknown) (no (unknown) (unknown) [id number] (units (unkno wn) date) unknown) (unknown) (no [...] (unknown) (unknown) : 2000 (units (unknown) date) Acct:[id number] unknown) (unknown) (no (unknown) (unknown) Dept at [...] cyst/pelvic pain. was seen in ER at [facility] on Monday and (unknown) (no (unknown) (unknown) read the note (units ( unknown) date) carefully and unknown) recognize, using context, where these substitutions (unknown) (no (unknown) (unknown) software. (units (unkn own) date) Although every unknown) effort is made to edit content, radiographer technologist errors Result panel 3 (unknown) (no (unknown) (unknown) (no value) (units (unk nown) date) unknown) (unknown) (no (unknown) (unknown) (no value) (units (unk nown) date) unknown) (unknown) (no (unknown) (unknown) 02/24/22 (units (unkno wn) date) unknown) (unknown) (no (unknown) (unknown) 08:15 (units (unkno wn) date) unknown) (unknown) (no (unknown) (unknown) [place], [place] (units ( unknown) date) [address] unknown) (unknown) (no (unknown) (unknown) Draft (units [...] wn) date) unknown) (unknown) (no (unknown) (unknown) [id number] (units (unkno wn) date) unknown) (unknown) (no [...] (unknown) (unknown) : 2000 (units (unknown) date) Acct:[id number] unknown) (unknown) (no (unknown) (unknown) Dept at [...] chlamydia treated unknown) as an inpatient at [facility] (unknown) (no (unknown) (unknown) back in June [...] cyst/pelvic pain. was seen in ER at [facility] on Monday and (unknown) (no (unknown) (unknown) read the note (units ( unknown) date) carefully and unknown) recognize, using context, where these substitutions (unknown) (no (unknown) (unknown) right lower (units (un known) date) quadrant pain unknown) which is noncyclic and has had only very irregular (unknown) (no (unknown) (unknown) software. (units (unkn own) date) Although every unknown) effort is made to edit content, radiographer technologist errors (unknown) (no (unknown) (unknown) time. She (units (unkn own) date) presents today in unknown) follow-up from an ER visit at [facility] Result panel 4 (unknown) (no (unknown) (unknown) (no value) (units (unk nown) date) unknown) (unknown) (no (unknown) (unknown) (no value) (units (unk nown) date) unknown) (unknown) (no (unknown) (unknown) 02/24/22 (units (unkno wn) date) unknown) (unknown) (no (unknown) (unknown) 08:15 (units (unkno wn) date) unknown) (unknown) (no (unknown) (unknown) [place], [place] (units ( unknown) date) [address] unknown) (unknown) (no (unknown) (unknown) Draft (units [...] wn) date) unknown) (unknown) (no (unknown) (unknown) [id number] (units (unkno wn) date) unknown) (unknown) (no [...] (unknown) (unknown) : 2000 (units (unknown) date) Acct:[id number] unknown) (unknown) (no (unknown) (unknown) Dept at (units (unkno wn) date) . unknown) (unknown) (no (unknown) (unknown) Details: (units (unkno wn) date) unknown) (unknown) (no (unknown) (unknown) Documented By: (units (unknown) date) Sushant Bryant MD unknown) 02/24/22 0803 (unknown) (no (unknown) (unknown) ER visit at (units (un known) date) [facility] unknown) [facility] on 02/17/2022 at which time she [...] chlamydia treated unknown) as an inpatient at [facility] in [place] (unknown) (no (unknown) (unknown) and therefore (units [...] cyst/pelvic pain. was seen in ER at [facility] on Monday and (unknown) (no (unknown) (unknown) read the note (units ( unknown) date) carefully and unknown) recognize, using context, where these substitutions (unknown) (no (unknown) (unknown) software. (units (unkn own) date) Although every unknown) effort is made to edit content, radiographer technologist errors (unknown) (no (unknown) (unknown) that time [...] date) unknown) (unknown) (no (unknown) (unknown) [place] [address] (unit s (unknown) date) unknown) (unknown) (no [...] wn) date) unknown) (unknown) (no (unknown) (unknown) [id number] (units (unkno wn) date) unknown) (unknown) (no [...] (unknown) (unknown) : 2000 (units (unknown) date) Acct:[id number] unknown) (unknown) (no (unknown) (unknown) Dept at (units (unkno wn) date) . unknown) (unknown) (no (unknown) (unknown) Details: (units (unkno wn) date) unknown) (unknown) (no (unknown) (unknown) Documented By: (units (unknown) date) Sushant Bryant MD unknown) 02/24/22 0803 (unknown) (no (unknown) (unknown) EOM: EOM intact (units (unknown) date) bilaterally unknown) (unknown) (no (unknown) (unknown) ER visit at [facility] (unit s (unknown) date) [facility] on unknown) 02/17/2022 at which time [...] unknown) (unknown) (no (unknown) (unknown) ROS (units (o wn) date) unknown) (unknown) (no [...] and (units (unk n) date) Movement: speech and unknown) movement normal [...] chlamydia treated as unknown) an inpatient at [facility] (unknown) (no (unknown) (unknown) and therefore (units [...] pain. unknown) was seen in ER at [facility] on Monday and (unknown) (no (unknown) (unknown) read the note (units ( unknown) date) carefully and unknown) recognize, using context, where these substitutions (unknown) (no (unknown) (unknown) sentences (units (unkn own) date) unknown) (unknown) (no (unknown) (unknown) software. Although (units (unknown) date) every effort is made unknown) to edit content, radiographer technologist errors (unknown) (no (unknown) (unknown) tender, cervical [...] unknown) (unknown) (no (unknown) (unknown) [place] [address] (unit s (unknown) date) unknown) (unknown) (no [...] If her symptoms (unknown) (no (unknown) (unknown) [id number] (units (unkno wn) date) unknown) (unknown) (no (unknown) (unknown) 500 mg p.o. b.i.d. (units (unknown) date) times 14 days. In unknown) addition will prescribe oxycodone 5 mg (unknown) (no (unknown) (unknown) Acne (-2016) (units [...] (unknown) (unknown) : 2000 (units (unknown) date) Acct:[id number] unknown) (unknown) (no (unknown) (unknown) Dept at [...] (unknown) (no (unknown) (unknown) ER visit at [facility] (unit s (unknown) date) [facility] on unknown) 02/17/2022 at which time [...] chlamydia treated as unknown) an inpatient at [facility] (unknown) (no (unknown) (unknown) and therefore (units [...] PO Q6H unknown) PRN pain #10 tabs 08/11/22 [Rx Confirmed (unknown) (no (unknown) (unknown) percutaneous [...] pain. unknown) was seen in ER at [facility] on Monday and (unknown) (no (unknown) (unknown) read the note (units ( unknown) date) carefully and unknown) recognize, using context, where these substitutions (unknown) (no (unknown) (unknown) sentences (units (unkn own) date) unknown) (unknown) (no (unknown) (unknown) software. Although (units (unknown) date) every effort is made unknown) to edit content, radiographer technologist errors m (unknown) (no (unknown) (unknown) suboptimal, [...] nknown) date) abscess in June unknown) of 1. Patient's intolerance of Vibramycin (unknown) (no (unknown) [...] wn) date) unknown) (unknown) (no (unknown) (unknown) 080004 (units (unkno wn) date) unknown) (unknown) (no (unknown) (unknown) Acne (-2015) (units (u nknown) date) unknown) (unknown) (no (unknown) (unknown) Age/Sex: 21 / F (units (unknown) date) Date of Service: unknown) (unknown) (no (unknown) (unknown) Allergies (units (unkn own) date) unknown) (unknown) (no (unknown) (unknown) [place], [place] (units ( unknown) date) [address] unknown) (unknown) (no (unknown) (unknown) Anesthesia (units [...] (unknown) (unknown) : 2000 (units (unknown) date) Acct:[id number] unknown) (unknown) (no (unknown) (unknown) Dept at [...] unknown) effort is made to edit content, radiographer technologist errors (unknown) (no (unknown) (unknown) vomitt (units (unkno wn) date) unknown) Result panel 8 (unknown) (no (unknown) (unknown) (no value) (units (unk nown) date) unknown) (unknown) (no (unknown) (unknown) 08:12 (units (unkno wn) date) unknown) (unknown) (no (unknown) (unknown) 03/17/22 (units (unkno wn) date) unknown) (unknown) (no (unknown) (unknown) 03/17/22] (units (unkn own) date) unknown) (unknown) (no (unknown) (unknown) [id number] (units (unkno wn) date) unknown) (unknown) (no (unknown) (unknown) Acne (-2016) (units (u nknown) date) unknown) (unknown) (no (unknown) (unknown) Age/Sex: 21 / F (units (unknown) date) Date of Service: unknown) (unknown) (no (unknown) (unknown) Allergies (units (unkn own) date) unknown) (unknown) (no (unknown) (unknown) [place], [place] (units ( unknown) date) [address] unknown) (unknown) (no (unknown) (unknown) Anesthesia (units [...] (unknown) (unknown) : 2000 (units (unknown) date) Acct:[id number] unknown) (unknown) (no (unknown) (unknown) Dept at [...] unknown) effort is made to edit content, radiographer technologist errors (unknown) (no (unknown) (unknown) vomitt (units (unkno wn) date) unknown) Result panel 9 (unknown) (no (unknown) (unknown) (no value) (units (unk nown) date) unknown) (unknown) (no (unknown) (unknown) 08:12 (units (unkno wn) date) unknown) (unknown) (no (unknown) (unknown) 03/17/22 (units (unkno wn) date) unknown) (unknown) (no (unknown) (unknown) 03/17/22] (units (unkn own) date) unknown) (unknown) (no (unknown) (unknown) [id number] (units (unkno wn) date) unknown) (unknown) (no (unknown) (unknown) Acne (-2016) (units (u nknown) date) unknown) (unknown) (no (unknown) (unknown) Age/Sex: 21 / F (units (unknown) date) Date of Service: unknown) (unknown) (no (unknown) (unknown) Allergies (units (unkn own) date) unknown) (unknown) (no (unknown) (unknown) [place], [place] (units ( unknown) date) [address] unknown) (unknown) (no (unknown) (unknown) Anesthesia (units [...] (unknown) (unknown) : 2000 (units (unknown) date) Acct:[id number] unknown) (unknown) (no (unknown) (unknown) Dept at (units (unkno wn) date) . unknown) (unknown) (no (unknown) (unknown) Details: (units (unkno wn) date) unknown) (unknown) (no (unknown) (unknown) Documented By: (units (unknown) date) Sushant Bryant unknown) 03/17/22 2821 (unknown) (no (unknown) (unknown) Draft (units (unkno [...] unknown) effort is made to edit content, radiographer technologist errors (unknown) (no (unknown) (unknown) vomitt (units [...] (unknown) (no date) (unknown) (unknown) Positive (units 69906 -5 unknown) (unknown) (no date) (unknown) (unknown) Positive (units 6410- 5 unknown) Result panel 11 (unknown) (no (unknown) (unknown) (no value) (units (unk nown) date) unknown) (unknown) (no (unknown) (unknown) 08:12 (units (unkno wn) date) unknown) (unknown) (no (unknown) (unknown) 03/17/22 (units (unkno wn) date) unknown) (unknown) (no (unknown) (unknown) 03/17/22] (units (unkn own) date) unknown) (unknown) (no (unknown) (unknown) [id number] (units (unkno wn) date) unknown) (unknown) (no [...] own) date) unknown) (unknown) (no (unknown) (unknown) [place], [place] (units ( unknown) date) [address] unknown) (unknown) (no (unknown) (unknown) Anesthesia (units [...] (unknown) (unknown) : 2000 (units (unknown) date) Acct:[id number] unknown) (unknown) (no (unknown) (unknown) Dept at [...] unknown) effort is made to edit content, radiographer technologist errors (unknown) (no (unknown) (unknown) vomitt (units [...] own) date) unknown) (unknown) (no (unknown) (unknown) [phone] (units (unkno wn) date) unknown) (unknown) (no [...] own) date) unknown) (unknown) (no (unknown) (unknown) [place], [place] (units ( unknown) date) [address] unknown) (unknown) (no (unknown) (unknown) Anesthesia (units [...] (unknown) (unknown) : 2000 (units (unknown) date) Acct:[id number] unknown) (unknown) (no (unknown) (unknown) Dept at [...] unknown) effort is made to edit content, radiographer technologist errors (unknown) (no (unknown) (unknown) vomitt (units [...] own) date) unknown) (unknown) (no (unknown) (unknown) [id number] (units (unkno wn) date) unknown) (unknown) (no [...] own) date) unknown) (unknown) (no (unknown) (unknown) [place], [place] (units ( unknown) date) [address] unknown) (unknown) (no (unknown) (unknown) Anesthesia (units [...] (unknown) (unknown) : 2000 (units (unknown) date) Acct:[id number] unknown) (unknown) (no (unknown) (unknown) Dept at [...] unknown) effort is made to edit content, radiographer technologist errors (unknown) (no (unknown) (unknown) vomitt (units [...] own) date) unknown) (unknown) (no (unknown) (unknown) [phone] (units (unkno wn) date) unknown) (unknown) (no [...] own) date) unknown) (unknown) (no (unknown) (unknown) [place], [place] (units ( unknown) date) [address] unknown) (unknown) (no (unknown) (unknown) Anesthesia (units [...] (unknown) (unknown) : 2000 (units (unknown) date) Acct:[id number] unknown) (unknown) (no (unknown) (unknown) Dept at [...] unknown) effort is made to edit content, radiographer technologist errors (unknown) (no (unknown) (unknown) treated for [...] own) date) unknown) (unknown) (no (unknown) (unknown) [id number] (units (unkno wn) date) unknown) (unknown) (no [...] own) date) unknown) (unknown) (no (unknown) (unknown) [place], [place] (units ( unknown) date) [address] unknown) (unknown) (no (unknown) (unknown) Anesthesia (units [...] (unknown) (unknown) : 2000 (units (unknown) date) Acct:[id number] unknown) (unknown) (no (unknown) (unknown) Dept at [...] unknown) effort is made to edit content, radiographer technologist errors (unknown) (no (unknown) (unknown) treated for [...] own) date) unknown) (unknown) (no (unknown) (unknown) [id number] (units (unkno wn) date) unknown) (unknown) (no [...] own) date) unknown) (unknown) (no (unknown) (unknown) [place], [place] (units ( unknown) date) [address] unknown) (unknown) (no (unknown) (unknown) Anesthesia (units [...] (unknown) (unknown) : 2000 (units (unknown) date) Acct:[id number] unknown) (unknown) (no (unknown) (unknown) Dept at [...] (unknown) (unknown) Patient: (units (unkno wn) date) Eamon Matthewsce unknown) MR#: [id number] (unknown) (no (unknown) (unknown) [...] unknown) effort is made to edit content, radiographer technologist errors (unknown) (no (unknown) (unknown) treated for [...] own) date) unknown) (unknown) (no (unknown) (unknown) 727048 (units (unkno wn) date) unknown) (unknown) (no [...] own) date) unknown) (unknown) (no (unknown) (unknown) [place], [place] (units ( unknown) date) [address] unknown) (unknown) (no (unknown) (unknown) Anesthesia (units [...] (unknown) (unknown) : 2000 (units (unknown) date) Acct:[id number] unknown) (unknown) (no (unknown) (unknown) Dept at [...] unknown) effort is made to edit content, radiographer technologist errors (unknown) (no (unknown) (unknown) treated for [...] own) date) unknown) (unknown) (no (unknown) (unknown) [id number] (units (unkno wn) date) unknown) (unknown) (no [...] own) date) unknown) (unknown) (no (unknown) (unknown) [place] (units ( unknown) date) [address] unknown) (unknown) (no (unknown) (unknown) Anesthesia (units [...] (unknown) (unknown) : 2000 (units (unknown) date) Acct:[id number] unknown) (unknown) (no (unknown) (unknown) Dept at [...] unknown) effort is made to edit content, radiographer technologist errors m (unknown) (no (unknown) (unknown) treated [...] nown) date) unknown) (unknown) (no (unknown) (unknown) [id number] (units (unkno wn) date) unknown) (unknown) (no [...] own) date) unknown) (unknown) (no (unknown) (unknown) [place], [place] (units ( unknown) date) [address] unknown) (unknown) (no (unknown) (unknown) Anesthesia (units [...] (unknown) (unknown) : 2000 (units (unknown) date) Acct:[id number] unknown) (unknown) (no (unknown) (unknown) Dept at [...] unknown) effort is made to edit content, radiographer technologist errors (unknown) (no (unknown) (unknown) vomitt (units (unkno wn) date) unknown) Result panel 21 (unknown) (no (unknown) (unknown) (no value) (units (unk nown) date) unknown) (unknown) (no (unknown) (unknown) [id number] (units (unkno wn) date) unknown) (unknown) (no (unknown) (unknown) 04/05/22 (units (unkno wn) date) unknown) (unknown) (no (unknown) (unknown) 04/05/22] (units (unkn own) date) unknown) (unknown) (no (unknown) (unknown) 16:12 (units (unkno wn) date) unknown) (unknown) (no (unknown) (unknown) 2021 with an 8 (units (unknown) date) month history of unknown) right lower quadrant pain following right-sided (unknown) (no (unknown) (unknown) Acne (-2015) (units (u nknown) date) unknown) (unknown) (no (unknown) (unknown) Affect: normal (units (unknown) date) affect unknown) (unknown) (no (unknown) (unknown) Age/Sex: 21 / F (units (unknown) date) Date of Service: unknown) (unknown) (no (unknown) (unknown) Allergies (units (unkn own) date) unknown) (unknown) (no (unknown) (unknown) [place], [place] (units ( unknown) date) [address] unknown) (unknown) (no (unknown) (unknown) Anesthesia (units [...] (unknown) (unknown) : 2000 (units (unknown) date) Acct:[id number] unknown) (unknown) (no (unknown) (unknown) Dept at [...] (unknown) Hospital in (units (un known) date) [place] back in unknown) June 2021.? No records [...] (units (unknown) date) ER visit at unknown) [facility] on 02/17/2022 at which (unknown) (no (unknown) [...] unknown) effort is made to edit content, radiographer technologist errors (unknown) (no (unknown) (unknown) that time she is (units (unknown) date) had persistent unknown) right lower quadrant pain which is noncyclic and (unknown) (no (unknown) (unknown) time she (units (unkno wn) date) underwent unknown) abdominal/pelvic CT and pelvic ultrasound which were largely (unknown) (no (unknown) (unknown) tubo-ovarian (units (u nknown) date) abscess due to unknown) chlamydia treated as an inpatient at [facility] (unknown) (no (unknown) (unknown) unremarkable with [...] quadrant pain: unknown) (unknown) (no (unknown) (unknown) [id number] (units (unkno wn) date) unknown) (unknown) (no (unknown) (unknown) 04/05/22 (units (unkno wn) date) unknown) (unknown) (no (unknown) (unknown) 04/05/22] (units (unkn own) date) unknown) (unknown) (no (unknown) (unknown) 16:12 (units (unkno wn) date) unknown) (unknown) (no (unknown) (unknown) 2021 with an 8 (units (unknown) date) month history of unknown) right lower quadrant pain following right-sided (unknown) (no (unknown) (unknown) Acne (-2015) (units (u nknown) date) unknown) (unknown) (no (unknown) (unknown) Affect: normal (units (unknown) date) affect unknown) (unknown) (no (unknown) (unknown) Age/Sex: 21 / F (units (unknown) date) Date of Service: unknown) (unknown) (no (unknown) (unknown) Allergies (units (unkn own) date) unknown) (unknown) (no (unknown) (unknown) [place] [address] (unit s (unknown) date) unknown) (unknown) (no [...] (unknown) (unknown) : 2000 (units (unknown) date) Acct:[id number] unknown) (unknown) (no (unknown) (unknown) Dept at [...] unknown) (unknown) (no (unknown) (unknown) GI (units (o wn) date) unknown) (unknown) (no [...] (unknown) date) unknown) (unknown) (no (unknown) (unknown) [facility] (unit s (unknown) date) back in June [...] an (units (unknown) date) [facility] at which (unknown) (no (unknown) [...] effort is made unknown) to edit content, radiographer technologist errors (unknown) (no (unknown) (unknown) that time she is had (unit s (unknown) date) persistent right unknown) lower quadrant pain which is noncyclic and (unknown) (no (unknown) (unknown) time she underwent (units (unknown) date) abdominal/pelvic CT unknown) and pelvic ultrasound which were largely (unknown) (no (unknown) (unknown) tubo-ovarian (units (u nknown) date) abscess due to unknown) chlamydia treated as an inpatient at [facility] (unknown) (no (unknown) (unknown) unremarkable with [...] quadrant pain: unknown) (unknown) (no (unknown) (unknown) [id number] (units (unkno wn) date) unknown) (unknown) (no [...] own) date) unknown) (unknown) (no (unknown) (unknown) [place], [place] [address] (unit s (unknown) date) unknown) (unknown) (no [...] (unknown) (unknown) : 2000 (units (unknown) date) Acct:[id number] unknown) (unknown) (no (unknown) (unknown) Dept at [...] date) unknown) (unknown) (no (unknown) (unknown) [facility] (unit s (unknown) date) back in June [...] an (units (unknown) date) [facility] at which (unknown) (no (unknown) [...] effort is made unknown) to edit content, radiographer technologist errors m (unknown) (no (unknown) (unknown) that time she is had (unit s (unknown) date) persistent right unknown) lower quadrant pain which is noncyclic and (unknown) (no (unknown) (unknown) time she underwent (units (unknown) date) abdominal/pelvic CT unknown) and pelvic ultrasound which were largely (unknown) (no (unknown) (unknown) tubo-ovarian (units (u nknown) date) abscess due to unknown) chlamydia treated as an inpatient at [facility] (unknown) (no (unknown) (unknown) unremarkable with [...] nown) date) unknown) (unknown) (no (unknown) (unknown) [id number] (units (unkno wn) date) unknown) (unknown) (no [...] (unknown) (unknown) : 2000 (units (unknown) date) Acct:[id number] unknown) (unknown) (no (unknown) (unknown) Date of (units (unkno wn) date) Service: unknown) 04/07/22 (unknown) (no (unknown) (unknown) History + (units (unkn own) date) Physical unknown) reviewed/Exam performed by Physician: Yes (unknown) (no (unknown) (unknown) Interval Note (units ( unknown) date) unknown) (unknown) (no (unknown) (unknown) [facility] (units (unknown) date) [address] unknown) [place] [address] (unknown) (no (unknown) (unknown) Patient: (units (unkno [...] known) unknown) (unknown) (no date) (unknown) (unknown) [id number] (units (unkn own) unknown) (unknown) (no date) (unknown) (unknown) Actual (units (unkn own) Procedure Side unknown) Surgeon (unknown) (no date) (unknown) (unknown) Age/Sex: 21 / (units (unknown) F unknown) (unknown) (no date) (unknown) (unknown) Chronic pelvic (units (unknown) pain unknown) (unknown) (no date) (unknown) (unknown) : (units (unkn own) 2002 unknown) Acct:[id number] (unknown) (no date) (unknown) (unknown) Date of (units (unkn own) Service: unknown) 04/07/22 (unknown) (no date) (unknown) (unknown) Date of (units (unkn own) procedure: unknown) 04/07/22 (unknown) (no date) (unknown) (unknown) [facility] [address] unknown) [address] [place] [id number] (unknown) (no date) (unknown) (unknown) Operation (units [...] nown) date) unknown) (unknown) (no (unknown) (unknown) [id number] (units (unkno wn) date) unknown) (unknown) (no [...] right adnexa was (unknown) (no (unknown) (unknown) Child Development Director: Nedra (units (unknown) date) Megan Dacosta unknown) [...] (unknown) (unknown) : 2000 (units (unknown) date) Acct:[id number] unknown) (unknown) (no (unknown) (unknown) Date of [...] (unknown) Hospital in (units (un known) date) [facility] in unknown) June 2021.? No records are available for review (unknown) (no (unknown) (unknown) Indications: (units (u nknown) date) unknown) (unknown) (no (unknown) (unknown) [facility] (units (unknown) date) [address] [place] [address] unknown) [place] [address] (unknown) (no (unknown) (unknown) Operation Date: (units [...] an (units (unknown) date) [facility] at which (unknown) (no (unknown) [...] unknown) chlamydia treated as an inpatient at [facility] (unknown) (no (unknown) (unknown) turned to [...]
[2022-04-10 02:33] LABS: BILIRUBIN,URINE NEGATIVE (NEGATIVE); GLUCOSE, URINE (UA) NEGATIVE (NEGATIVE); KETONES,URINE (UA) NEGATIVE (NEGATIVE); LEUKOCYTE ESTERASE, URINE NEGATIVE (NEGATIVE); NITRITE,URINE NEGATIVE (NEGATIVE); OCCULT BLOOD,URINE TRACE-INTA (NEGATIVE); PROTEIN,URINE NEGATIVE (NEGATIVE); UROBILINOGEN,URINE 0.2 (NORMAL) E.U./dL (NORMAL)
[2022-04-10 02:35] LABS: CLARITY,URINE CLEAR (CLEAR)
[2022-04-10 02:36] LABS: HCG UR QUAL NEGATIVE
--- NOTE | 2022-04-10 02:37 | ED Physician Documentation ---
PD HPI FEMALE - Stated complaint Stated Complaint: FEMALE - Chief complaint Chief Complaint: Abd Pain - History obtained from History obtained from: Patient - History of Present Illness Timing - onset: How many days ago (3) Associated symptoms: Other (suprapubic pain/pressure/fullness) Recently seen: Emergency Dept, Surgery - Additional information Additional information: Patient underwent laparoscopic right salpingo-oophorectomy three days ago, presented to this ED the evening of the surgery due to inability to urinate since the procedure. A campos catheter was placed with resolution of symptoms associated with large urine output. The recommendation by ED MD was d/c with campos catheter in place but patient requested removal of the catheter prior to d/c. She says she had no problems with UO until earlier today, with decreasing urine output despite urge to urinate and tonight she no longer has any urine output. 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: Ovarian cysts, Other - Past Surgical History Past Surgical History: Yes Ortho: ACL reconstruction /CLINICAL PSYCHOLOGIST PRIVATE PRACTICE: Other - Present Medications Home Medications: Ambulatory Orders Medication Instructions Recorded Confirmed Ciprofloxacin HCl [Cipro] 500 mg PO TID 04/10/22 04/10/22 Hydromorphone HCl 4 mg PO Q4HR 04/10/22 04/10/22 Ibuprofen [Motrin] 1 tablet PO Q8H PRN 04/10/22 04/10/22 Promethazine [Phenergan] 25 mg PO Q6H PRN 04/10/22 04/10/22 - Allergies Allergies/Adverse Reactions: Allergies Allergy/AdvReac Type Severity Reaction Status Date / Time doxycycline Allergy Unknown Verified 04/10/22 00:32 lactose Allergy Unknown Verified 04/10/22 00:32 morphine Allergy Unknown Verified 04/10/22 00:32 Morpholine Analogues Allergy Hives Verified 04/10/22 00:32 Dairy Allergy Unknown Uncoded 04/10/22 00:32 - Social History Does the pt smoke?: No Smoking Status: Never smoker Does the pt drink ETOH?: No Does the pt have substance abuse?: No - Immunizations Immunizations are current?: Yes - POLST Patient has POLST: No PD ED PE NORMAL - Vitals Vital signs reviewed: Yes - General General: Alert and oriented X 3, No acute distress, Well developed/nourished - Abdomen Abdomen: Soft, Non distended, Other (TTP across lower abdomen/anterior pelvis, R>L; patient indicates this is no worse than she has had post-operatively) Results - Vitals Vitals: Oxygen O2 Source Room air - Labs Labs: Laboratory Tests 04/10/22 04/10/22 02:20 02:20 Urine Color YELLOW Urine Clarity CLEAR Urine pH 6.0 Ur Specific [place] <=1.005 Urine Protein NEGATIVE Urine Glucose (UA) NEGATIVE Urine Ketones NEGATIVE Urine Occult Blood TRACE-INTA Urine Nitrite NEGATIVE Urine Bilirubin NEGATIVE Urine Urobilinogen 0.2 (NORMAL) Ur Leukocyte Esterase NEGATIVE Ur Microscopic Review NOT INDICATED Urine Culture Comments NOT INDICATED Urine HCG, Qual NEGATIVE PD MEDICAL DECISION MAKING - ED course Complexity details: reviewed old records, considered differential, d/w patient ED course: ED RN placed campos catheter with subsequent 1100cc urine output associated with resolution of her symptoms. She is currently on Cipro (was prescribed this post- operatively). Discharged with catheter in place, return precaution discussed. Follow up for reevaluation, ideally within 3-5 days Departure - Departure Disposition: 01 Home, Self Care Clinical Impression: Urinary retention Condition: Good Instructions: ED Catheter Care [place], ED Retention Urinary Female Follow-Up: MABEL RODRIGUEZ ARNP [Primary Care Provider] - Comments: Follow up with your primary care provider or the surgeon within the next 3-5 days for reevaluation and likely removal of the catheter. Discharge Date/Time: 04/10/22 05:13
[2022-04-10 05:08] VITALS: BP 116/71
== END 2022-04-10 05:13 | disposition home or self-care (01) ==
LOC: ED 00:11
DX: R33.9 Retention of urine, unspecified (principal); Z90.721 Acquired absence of ovaries, unilateral
CPT/HCPCS: 51702; 81001; 81003; 81025; 87086; 99282; 99283

== ENCOUNTER 2022-07-19 16:35 | Outpatient (CLI) | payer OTHER ==
[2022-07-19 17:01] LABS: BASOPHILS % (AUTO) 0.4 %; EOSINOPHILS # (AUTO) 0.1 10^3/uL (0.0-0.7); EOSINOPHILS % (AUTO) 1.3 %; HCT - HEMATOCRIT 40.8 % (37.0-47.0); HGB - HEMOGLOBIN 13.3 g/dL (12.0-16.0); LYMPHOCYTES # (AUTO) 2.1 10^3/uL (1.5-3.5); LYMPHOCYTES % (AUTO) 19.1 %; MEAN CORPUSCULAR HGB CONC 32.6 g/dL (32.0-36.0); MEAN CORPUSCULAR VOLUME 88.9 fL (81.0-99.0); MEAN PLATELET VOLUME 9.8 fL (7.9-10.8); MONOCYTES # (AUTO) 0.6 10^3/uL (0.0-1.0); MONOCYTES % (AUTO) 5.6 %; NEUTROPHILS # (AUTO) 7.9 10^3/uL (1.5-6.6); NEUTROPHILS % (AUTO) 73.3 %; PLT - PLATELET COUNT 504 10^3/uL (130-450); RED BLOOD COUNT 4.59 10^6/uL (4.20-5.40); RED CELL DISTRIBUTION WIDTH 12.7 % (12.0-15.0); WHITE BLOOD COUNT 10.8 x10^3/uL (4.8-10.8)
[2022-07-19 17:20] LABS: CREATININE 0.9 mg/dL (0.4-1.0); POTASSIUM 3.7 mmol/L (3.5-5.0)
== END 2022-07-19 16:36 | disposition home or self-care (01) ==
LOC: LAB 16:35
PROVIDERS: ATTEND Nurse Practitioner
DX: N83.202 Unspecified ovarian cyst, left side (principal); R10.2 Pelvic and perineal pain; G89.29 Other chronic pain
CPT/HCPCS: 36415; 80048; 82728; 83540; 84466; 84702; 85025

== ENCOUNTER 2022-09-02 21:51 | Emergency (ER) | payer OTHER ==
[2022-09-02 22:02] VITALS: BP 127/77
--- OUTSIDE RECORDS SUMMARY | 2022-09-02 22:24 | EXTERNAL MEDICAL SUMMARY RPT | Continuity of Care Document ---
:2000 Author Organization [facility] Address [address] [place] [address] Phone Care Team Providers Name Role Phone Unavailable Unavailable Unavailable Josefina Matthew Unavailable Unavailable Allergies and Intolerances date description facility type (no date) Opioids - Morphine Analogues [facility] (unknown) (no date) doxycycline [facility] (unknown) Encounters No information. Functional Status No information. Immunizations No information. Medications date description facility 2022-06-07 00:00 Ondansetron [facility] 2022-06-07 00:00 Ketorolac [facility] 2022-06-07 00:00 Hydrocodone[facility]Acetaminophen [facility] Problems date description facility 2022-06-07 00:00 Hemorrhagic cyst of left ovary [facility] 2022-06-14 00:00 Chronic pelvic pain in female [facility] 2022-07-28 00:00 Cyst of ovary [facility] 2022-08-31 14:44 Other specified noninflammatory disorde rs [facility] vagina 2022-08-31 14:44 Pelvic and perineal pain Located within [facility] 2022-08-31 14:44 Encounter for screening for infections with a [facility] predominantly 2022-08-31 15:06 Hemorrhage in early , unspecif [facility] 2022-08-31 15:15 Other chronic pain [facility] 2022-08-31 15:15 Hemorrhage in early , unspecif [facility] 2022-08-31 15:[address] [facility]22-[facility] 15:15 Pelvic and perineal pain Located within [facility] 2022-08-31 15:33 Other chronic pain [facility] 2022-08-31 15:33 Hemorrhage in early , unspecif [facility] 2022-08-31 15:[address] [facility]:[address] 2022-09-01 02:58 Other specified noninflammatory disorde rs of [facility] vagina 2022-09-01 02:58 Pelvic and perineal pain [facility] 2022-09-01 02:58 Encounter for screening for infections with a [facility] predominantly Procedures date description facility 2022-06-07 00:00 Complete ultrasound of pelvis [facility] 2022-07-28 00:00 Complete ultrasound of pelvis [facility] 2022-06-07 00:00 Gram Stain [facility] 2022-06-14 00:00 Gram Stain [facility] 2022-07-28 00:00 Gram Stain [facility] 2022-08-31 00:00 Gram Stain [facility] 2022-06-07 00:00 CT abdomen pelvis w con [facility] Results/Labs test date author facility value unit interpret ation Result panel 1 ([facility]) (no [facility] Result panel 2 (unknown) (no date) ([facility] Result panel 3 (unknown) (no date) (unknown[facility] Result panel 4 (unknown) (no date) (unknown[facility] Result panel 5 (unknown) (no date) (unknown[facility] Result panel 6 (unknown) (no date) (unknown[facility] Result panel 7 (unknown) (no date) (unknown[facility] Result panel 8 (unknown) (no date) (unknown[facility] Result panel 9 (unknown) (no date) (unknown[facility] Result panel 10 (unknown) (no date) (unknown[facility] Result panel 11 (unknown) (no date) (unknown[facility] Result panel 12 (unknown) (no date) (unknown[facility] Result panel 13 (unknown) (no date) (unknown[facility] Result panel 14 (unknown) (no date) (unknown[facility] Result panel 15 (unknown) (no date) (unknown[facility] Result panel 16 (unknown) (no date) (unknown[facility] Result panel 17 (unknown) (no date) (unknown[facility] Result panel 18 (unknown) (no date) (unknown[facility] Result panel 19 (unknown) (no date) (unknown[facility] Result panel 20 (unknown) (no date) (unknown[facility] Result panel 21 (unknown) (no date) (unknown[facility] Result panel 22 (unknown) (no date) (unknown[facility] Result panel 23 (unknown) (no date) (unknown[facility] Result panel 24 (unknown) (no date) (unknown[facility] Result panel 25 (unknown) (no date) (unknown[facility] Result panel 26 (unknown) (no date) (unknown[facility] Result panel 27 (unknown) (no date) (unknown[facility] Result panel 28 (unknown) (no date) (unknown[facility] Result panel 29 (unknown) (no date) (unknown[facility] Result panel 30 (unknown) (no date) (unknown[facility] Result panel 31 (unknown) (no date) (unknown[facility] Result panel 32 (unknown) (no date) (unknown[facility] Result panel 33 (unknown) (no date) (unknown[facility] Result panel 34 (unknown) (no date) (unknown[facility] Result panel 35 (unknown) (no date) (unknown[facility] Result panel 36 (unknown) (no date) (unknown[facility] Result panel 37 (unknown) (no date) (unknown[facility] Result panel 38 (unknown) (no date) (unknown[facility] Result panel 39 (unknown) (no date) (unknown[facility]) Result panel 40 (unknown) (no date) (unknown[facility] Result panel 41 (unknown) (no date) (unknown[facility] Result panel 42 (unknown) (no date) (unknown[facility] Result panel 43 (unknown) (no date) (unknown[facility] Result panel 44 (unknown) (no date) (unknown[facility] Result panel 45 (unknown) (no date) (unknown[facility] Result panel 46 (unknown) (no date) (unknown[facility] Result panel 47 (unknown) (no date) (unknown[facility] Result panel 48 (unknown) (no date) (unknown[facility] Result panel 49 (unknown) (no date) (unknown[facility] Result panel 50 (unknown) (no date) (unknown[facility] Result panel 51 (unknown) (no date) (unknown[facility] Result panel 52 (unknown) (no date) (unknown[facility] Result panel 53 (unknown) (no date) (unknown[facility] Result panel 54 (unknown) (no date) (unknown[facility] Result panel 55 (unknown) (no date) (unknown[facility] Result panel 56 (unknown) (no date) (unknown[facility] Result panel 57 (unknown) (no date) (unknown[facility] Result panel 58 (unknown) (no date) (unknown[facility] Result panel 59 (unknown) (no date) (unknown[facility] Result panel 60 (unknown) (no date) (unknown[facility] Result panel 61 (unknown) (no date) (unknown[facility]) Result panel 62 (unknown) (no date) (unknown[facility] Result panel 63 (unknown) (no date) (unknown[facility]) Result panel 64 (unknown) (no date) (unknown[facility] Result panel 65 (unknown) (no date) (unknown[facility] Result panel 66 (unknown) (no date) (unknown[facility] Result panel 67 (unknown) (no date) (unknown[facility]) Result panel 68 (unknown) (no date) (unknown[facility] Result panel 69 (unknown) (no date) (unknown[facility] Result panel 70 (unknown) (no date) (unknown[facility] Result panel 71 (unknown) (no date) (unknown[facility] Result panel 72 (unknown) (no date) (unknown[facility]) Result panel 73 (unknown) (no date) (unknown[facility] Result panel 74 (unknown) (no date) (unknown[facility]) Result panel 75 (unknown) (no date) (unknown[facility] Result panel 76 (unknown) (no date) (unknown[facility]) Result panel 77 (unknown) (no date) (unknown[facility] Result panel 78 (unknown) (no date) (unknown[facility] Result panel 79 (unknown) (no date) (unknown[facility] Result panel 80 (unknown) (no date) (unknown[facility] Result panel 81 (unknown) (no date) (unknown[facility] Result panel 82 (unknown) (no date) (unknown[facility]) Result panel 83 (unknown) (no date) (unknown[facility] Result panel 84 (unknown) (no date) (unknown[facility]) Result panel 85 (unknown) (no date) (unknown[facility] Result panel 86 (unknown) (no date) (unknown[facility] Result panel 87 (unknown) (no date) (unknown[facility] Result panel 88 (unknown) (no date) (unknown[facility] Result panel 89 (unknown) (no date) (unknown[facility]) Result panel 90 (unknown) (no date) (unknown[facility] Result panel 91 (unknown) (no date) (unknown[facility] Result panel 92 (unknown) (no date) (unknown[facility] Result panel 93 (unknown) (no date) (unknown[facility]) Result panel 94 (unknown) (no date) (unknown[facility] Result panel 95 (unknown) (no date) (unknown[facility]) Result panel 96 (unknown) (no date) (unknown[facility]) Result panel 97 (unknown) (no date) (unknown[facility]) Result panel 98 (unknown) (no date) (unknown[facility] Result panel 99 (unknown) (no date) (unknown[facility]) Result panel 100 (unknown) (no date) (unknown[facility] Result panel 101 (unknown) (no date) (unknown[facility]) Result panel 102 (unknown) (no date) (unknown[facility] Result panel 103 (unknown) (no date) (unknown[facility]) Result panel 104 (unknown) (no date) (unknown[facility] Result panel 105 (unknown) (no date) (unknown[facility]) Result panel 106 (unknown) (no date) (unknown[facility]) Result panel 107 (unknown) (no date) (unknown[facility] Result panel 108 (unknown) (no date) (unknown[facility]) Result panel 109 (unknown) (no date) (unknown[facility] Result panel 110 (unknown) (no date) (unknown[facility]) Result panel 111 (unknown) (no date) (unknown[facility]) Result panel 112 (unknown) (no date) (unknown[facility]) Result panel 113 (unknown) (no date) (unknown[facility] Result panel 114 (unknown) (no date) (unknown[facility]) Result panel 115 (unknown) (no date) (unknown[facility]) Result panel 116 (unknown) (no date) (unknown[facility]) Result panel 117 (unknown) (no date) (unknown[facility]) Result panel 118 (unknown) (no date) (unknown[facility] Result panel 119 (unknown) (no date) (unknown[facility]) Result panel 120 (unknown) (no date) (unknown[facility] Result panel 121 (unknown) (no date) (unknown[facility] Result panel 122 (unknown) (no date) (unknown[facility] Result panel 123 (unknown) (no date) (unknown[facility] Result panel 124 (unknown) (no date) (unknown[facility]) Result panel 125 (unknown) (no date) (unknown[facility]) Result panel 126 (unknown) (no date) (unknown[facility] Result panel 127 (unknown) (no date) (unknown[facility]) Result panel 128 (unknown) (no date) (unknown[facility] Result panel 129 (unknown) (no date) (unknown[facility]) Result panel 130 (unknown) (no date) (unknown[facility] Result panel 131 (unknown) (no date) (unknown[facility] Result panel 132 (unknown) (no date) (unknown[facility] Result panel 133 (unknown) (no date) (unknown[facility] Result panel 134 (unknown) (no date) (unknown[facility]) Result panel 135 (unknown) (no date) (unknown[facility] Result panel 136 (unknown) (no date) (unknown[facility]) Result panel 137 (unknown) (no date) (unknown[facility]) Result panel 138 (unknown) (no date) (unknown[facility]) Result panel 139 (unknown) (no date) (unknown[facility] Result panel 140 (unknown) (no date) (unknown[facility] Result panel 141 (unknown) (no date) (unknown[facility]) Result panel 142 (unknown) (no date) (unknown[facility]) Result panel 143 (unknown) (no date) (unknown[facility] Result panel 144 (unknown) (no date) (unknown[facility]) Result panel 145 (unknown) (no date) (unknown[facility] Result panel 146 (unknown) (no date) (unknown[facility]) Result panel 147 (unknown) (no date) (unknown[facility] Result panel 148 (unknown) (no date) (unknown[facility]) Result panel 149 (unknown) (no date) (unknown[facility] Result panel 150 (unknown) (no date) (unknown[facility]) Result panel 151 (unknown) (no date) (unknown) [facility] Result panel 152 (unknown) (no date) (unknown[facility]) Result panel 153 (unknown) (no date) (unknown[facility] Result panel 154 (unknown) (no date) (unknown[facility]) Result panel 155 (unknown) (no date) (unknown[facility] Result panel 156 (unknown) (no date) (unknown) [facility]) Result panel 157 (unknown) (no date) (unknown) [facility]) Result panel 158 (unknown) (no date) (unknown[facility] Result panel 159 (unknown) (no date) (unknown) [facility]) Result panel 160 (unknown) (no date) (unknown) [facility] Result panel 161 (unknown) (no date) (unknown) [facility]) Result panel 162 (unknown) (no date) (unknown) [facility] Result panel 163 (unknown) (no date) (unknown) [facility] Result panel 164 (unknown) (no date) (unknown) [facility]) Result panel 165 (unknown) (no date) (unknown) [facility] Result panel 166 (unknown) (no date) (unknown) [facility]) Result panel 167 (unknown) (no date) (unknown) [facility] Result panel 168 (unknown) (no date) (unknown) [facility] Result panel 169 (unknown) (no date) (unknown) [facility] Result panel 170 (unknown) (no date) (unknown) [facility] Result panel 171 (unknown) (no date) (unknown[facility] Result panel 172 (unknown) (no date) (unknown) [facility] Result panel 173 (unknown) (no date) (unknown) [facility] Result panel 174 (unknown) (no date) (unknown) [facility] Result panel 175 (unknown) (no date) (unknown) [facility] Result panel 176 (unknown) (no date) (unknown) [facility] Result panel 177 (unknown) (no date) (unknown) [facility] Result panel 178 (unknown) (no date) (unknown) [facility] Result panel 179 (unknown) (no date) (unknown) [facility] Result panel 180 (unknown) (no date) (unknown[facility]) Result panel 181 (unknown) (no date) (unknown[facility] Result panel 182 (unknown) (no date) (unknown[facility]) Result panel 183 (unknown) (no date) (unknown[facility] Result panel 184 (unknown) (no date) (unknown[facility]) Result panel 185 (unknown) (no date) (unknown[facility] Result panel 186 (unknown) (no date) (unknown[facility] Result panel 187 (unknown) (no date) (unknown[facility] Result panel 188 (unknown) (no date) (unknown[facility] Result panel 189 (unknown) (no date) (unknown) [facility] Result panel 190 (unknown) (no date) (unknown[facility] Result panel 191 (unknown) (no date) (unknown) [facility] Result panel 192 (unknown) (no date) (unknown) [facility] Result panel 193 (unknown) (no date) (unknown) [facility] Result panel 194 (unknown) (no date) (unknown) [facility] Result panel 195 (unknown) (no date) (unknown) [facility] Result panel 196 (unknown) (no date) (unknown) [facility]) Result panel 197 (unknown) (no date) (unknown) [facility] Result panel 198 (unknown) (no date) (unknown) [facility]) Result panel 199 (unknown) (no date) (unknown[facility] Result panel 200 (unknown) (no date) (unknown) [facility] Result panel 201 (unknown) (no date) (unknown) [facility] Result panel 202 (unknown) (no date) (unknown) [facility] Result panel 203 (unknown) (no date) (unknown) [facility] Result panel 204 (unknown) (no date) (unknown) [facility] Result panel 205 (unknown) (no date) (unknown[facility] Result panel 206 (unknown) (no date) (unknown) [facility] Result panel 207 (unknown) (no date) (unknown) [facility]) Result panel 208 (unknown) (no date) (unknown) [facility] Result panel 209 (unknown) (no date) (unknown) [facility]) Result panel 210 (unknown) (no date) (unknown[facility] Result panel 211 (unknown) (no date) (unknown[facility] Result panel 212 (unknown) (no date) (unknown) [facility]) Result panel 213 (unknown) (no date) (unknown) [facility] Result panel 214 (unknown) (no date) (unknown) [facility] Result panel 215 (unknown) (no date) (unknown) [facility]) Result panel 216 (unknown) (no date) (unknown) [facility]) Result panel 217 (unknown) (no date) (unknown) [facility] Result panel 218 (unknown) (no date) (unknown) [facility]) Result panel 219 (unknown) (no date) (unknown) [facility] Result panel 220 (unknown) (no date) (unknown[facility]) Result panel 221 (unknown) (no date) (unknown) [facility]) Result panel 222 (unknown) (no date) (unknown) [facility]) Result panel 223 (unknown) (no date) (unknown) [facility]) Result panel 224 (unknown) (no date) (unknown) [facility]) Result panel 225 (unknown) (no date) (unknown) [facility] Result panel 226 (unknown) (no date) (unknown) [facility]) Result panel 227 (unknown) (no date) (unknown) [facility] Result panel 228 (unknown) (no date) (unknown[facility] Result panel 229 (unknown) (no date) (unknown[facility] Result panel 230 (unknown) (no date) (unknown[facility] Result panel 231 (unknown) (no date) (unknown) [facility] Result panel 232 (unknown) (no date) (unknown) [facility] Result panel 233 (unknown) (no date) (unknown) [facility] Result panel 234 (unknown) (no date) (unknown[facility] Result panel 235 (unknown) (no date) (unknown) [facility] Result panel 236 (unknown) (no date) (unknown[facility] Result panel 237 (unknown) (no date) (unknown) [facility] Result panel 238 (unknown) (no date) (unknown[facility] Result panel 239 (unknown) (no date) (unknown) [facility]) Result panel 240 (unknown) (no date) (unknown[facility] Result panel 241 (unknown) (no date) (unknown[facility]) Result panel 242 (unknown) (no date) (unknown) [facility] Result panel 243 (unknown) (no date) (unknown[facility]) Result panel 244 (unknown) (no date) (unknown) [facility]) Result panel 245 (unknown) (no date) (unknown) [facility] Result panel 246 (unknown) (no date) (unknown) [facility]) Result panel 247 (unknown) (no date) (unknown) [facility]) Result panel 248 (unknown) (no date) (unknown) [facility]) Result panel 249 (unknown) (no date) (unknown) [facility]) Result panel 250 (unknown) (no date) (unknown) [facility]) Result panel 251 (unknown) (no date) (unknown) [facility]) Result panel 252 (unknown) (no date) (unknown) [facility]) Result panel 253 (unknown) (no date) (unknown) [facility]) Result panel 254 (unknown) (no date) (unknown) [facility]) Result panel 255 (unknown) (no date) (unknown) [facility]) Result panel 256 (unknown) (no date) (unknown) [facility]) Result panel 257 (unknown) (no date) (unknown) [facility]) Result panel 258 (unknown) (no date) (unknown) [facility]) Result panel 259 (unknown) (no date) (unknown) [facility]) Result panel 260 (unknown) (no date) (unknown) [facility]) Result panel 261 (unknown) (no date) (unknown) [facility]) Result panel 262 (unknown) (no date) (unknown) [facility]) Result panel 263 (unknown) (no date) (unknown) [facility] Result panel 264 (unknown) (no date) (unknown) [facility]) Result panel 265 (unknown) (no date) (unknown) [facility] Result panel 266 (unknown) (no date) (unknown) [facility]) Result panel 267 (unknown) (no date) (unknown) [facility]) Result panel 268 (unknown) (no date) (unknown) [facility]) Result panel 269 (unknown) (no date) (unknown) [facility]) Result panel 270 (unknown) (no date) (unknown) [facility]) Result panel 271 (unknown) (no date) (unknown) [facility]) Result panel 272 (unknown) (no date) (unknown) [facility]) Result panel 273 (unknown) (no date) (unknown) [facility]) Result panel 274 (unknown) (no date) (unknown) [facility]) Result panel 275 (unknown) (no date) (unknown) [facility]) Result panel 276 (unknown) (no date) (unknown) [facility]) Result panel 277 (unknown) (no date) (unknown) [facility]) Result panel 278 (unknown) (no date) (unknown) [facility]) Result panel 279 (unknown) (no date) (unknown) [facility]) Result panel 280 (unknown) (no date) (unknown) [facility]) Result panel 281 (unknown) (no date) (unknown) [facility]) Result panel 282 (unknown) (no date) (unknown) [facility]) Result panel 283 (unknown) (no date) (unknown) [facility]) Result panel 284 (unknown) (no date) (unknown) [facility]) Result panel 285 (unknown) (no date) (unknown) [facility]) Result panel 286 (unknown) (no date) (unknown) [facility]) Result panel 287 (unknown) (no date) (unknown) [facility] Result panel 288 (unknown) (no date) (unknown) [facility] Result panel 289 (unknown) (no date) (unknown) [facility]) Result panel 290 (unknown) (no date) (unknown[facility]) Result panel 291 (unknown) (no date) (unknown[facility]) Result panel 292 (unknown) (no date) (unknown) [facility]) Result panel 293 (unknown) (no date) (unknown) [facility]) Result panel 294 (unknown) (no date) (unknown) [facility]) Result panel 295 (unknown) (no date) (unknown) [facility]) Result panel 296 (unknown) (no date) (unknown) [facility]) Result panel 297 (unknown) (no date) (unknown) [facility]) Result panel 298 (unknown) (no date) (unknown) [facility]) Result panel 299 (unknown) (no date) (unknown) [facility]) Result panel 300 (unknown) (no date) (unknown) [facility]) Result panel 301 (unknown) (no date) (unknown) [facility]) Result panel 302 (unknown) (no date) (unknown) [facility]) Result panel 303 (unknown) (no date) (unknown) [facility]) Result panel 304 (unknown) (no date) (unknown) [facility]) Result panel 305 (unknown) (no date) (unknown) [facility]) Result panel 306 (unknown) (no date) (unknown) [facility]) Result panel 307 (unknown) (no date) (unknown) [facility]) Result panel 308 (unknown) (no date) (unknown) [facility] Result panel 309 (unknown) (no date) (unknown) [facility]) Result panel 310 (unknown) (no date) (unknown[facility]) Result panel 311 (unknown) (no date) (unknown) [facility]) Result panel 312 (unknown) (no date) (unknown) [facility]) Result panel 313 (unknown) (no date) (unknown) [facility]) Result panel 314 (unknown) (no date) (unknown[facility]) Result panel 315 (unknown) (no date) (unknown) [facility] Result panel 316 (unknown) (no date) (unknown) [facility]) Result panel 317 (unknown) (no date) (unknown) [facility]) Result panel 318 (unknown) (no date) (unknown) [facility]) Result panel 319 (unknown) (no date) (unknown) [facility]) Result panel 320 (unknown) (no date) (unknown) [facility]) Result panel 321 (unknown) (no date) (unknown[facility]) Result panel 322 (unknown) (no date) (unknown) [facility]) Result panel 323 (unknown) (no date) (unknown) [facility]) Result panel 324 (unknown) (no date) (unknown) [facility]) Result panel 325 (unknown) (no date) (unknown) [facility]) Result panel 326 (unknown) (no date) (unknown) [facility]) Result panel 327 (unknown) (no date) (unknown) [facility]) Result panel 328 (unknown) (no date) (unknown) [facility]) Result panel 329 (unknown) (no date) (unknown) [facility]) Result panel 330 (unknown) (no date) (unknown) [facility]) Result panel 331 (unknown) (no date) (unknown) [facility]) Result panel 332 (unknown) (no date) (unknown) [facility]) Result panel 333 (unknown) (no date) (unknown) [facility]) Result panel 334 (unknown) (no date) (unknown) [facility]) Result panel 335 (unknown) (no date) (unknown) [facility]) Result panel 336 (unknown) (no date) (unknown) [facility]) Result panel 337 (unknown) (no date) (unknown) [facility]) Result panel 338 (unknown) (no date) (unknown) [facility]) Result panel 339 (unknown) (no date) (unknown) [facility]) Result panel 340 (unknown) (no date) (unknown) [facility]) Result panel 341 (unknown) (no date) (unknown[facility]) Result panel 342 (unknown) (no date) (unknown) [facility]) Result panel 343 (unknown) (no date) (unknown) [facility]) Result panel 344 (unknown) (no date) (unknown) [facility]) Result panel 345 (unknown) (no date) (unknown) [facility]) Result panel 346 (unknown) (no date) (unknown) [facility]) Result panel 347 (unknown) (no date) (unknown) [facility]) Result panel 348 (unknown) (no date) (unknown[facility]) Result panel 349 (unknown) (no date) (unknown) [facility]) Result panel 350 (unknown) (no date) (unknown) [facility]) Result panel 351 (unknown) (no date) (unknown) [facility]) Result panel 352 (unknown) (no date) (unknown) [facility]) Result panel 353 (unknown) (no date) (unknown) [facility]) Result panel 354 (unknown) (no date) (unknown) [facility]) Result panel 355 (unknown) (no date) (unknown) [facility]) Result panel 356 (unknown) (no date) (unknown) [facility]) Result panel 357 (unknown) (no date) (unknown) [facility]) Result panel 358 (unknown) (no date) (unknown) [facility]) Result panel 359 (unknown) (no date) (unknown) [facility]) Result panel 360 (unknown) (no date) (unknown) [facility]) Result panel 361 (unknown) (no date) (unknown) [facility]) Result panel 362 (unknown) (no date) (unknown) [facility]) Result panel 363 (unknown) (no date) (unknown) [facility]) Result panel 364 (unknown) (no date) (unknown) [facility]) Result panel 365 (unknown) (no date) (unknown) [facility]) Result panel 366 (unknown) (no date) (unknown) [facility]) Result panel 367 (unknown) (no date) (unknown) [facility]) Result panel 368 (unknown) (no date) (unknown) [facility]) Result panel 369 (unknown) (no date) (unknown) [facility]) Result panel 370 (unknown) (no date) (unknown) [facility]) Result panel 371 (unknown) (no date) (unknown) [facility]) Result panel 372 (unknown) (no date) (unknown) [facility]) Result panel 373 (unknown) (no date) (unknown[facility]) Result panel 374 (unknown) (no date) (unknown) [facility]) Result panel 375 (unknown) (no date) (unknown) [facility]) Result panel 376 (unknown) (no date) (unknown) [facility]) Result panel 377 (unknown) (no date) (unknown) [facility]) Result panel 378 (unknown) (no date) (unknown) [facility]) Result panel 379 (unknown) (no date) (unknown[facility]) Result panel 380 (unknown) (no date) (unknown) [facility]) Result panel 381 (unknown) (no date) (unknown) [facility]) Result panel 382 (unknown) (no date) (unknown) [facility]) Result panel 383 (unknown) (no date) (unknown) [facility]) Result panel 384 (unknown) (no date) (unknown[facility]) Result panel 385 (unknown) (no date) (unknown) [facility]) Result panel 386 (unknown) (no date) (unknown) [facility]) Result panel 387 (unknown) (no date) (unknown) [facility]) Result panel 388 (unknown) (no date) (unknown) [facility]) Result panel 389 (unknown) (no date) (unknown) [facility]) Result panel 390 (unknown) (no date) (unknown) [facility]) Result panel 391 (unknown) (no date) (unknown) [facility]) Result panel 392 (unknown) (no date) (unknown[facility]) Result panel 393 (unknown) (no date) (unknown) [facility]) Result panel 394 (unknown) (no date) (unknown) [facility]) Result panel 395 (unknown) (no date) (unknown) [facility]) Result panel 396 (unknown) (no date) (unknown) [facility]) Result panel 397 (unknown) (no date) (unknown) [facility]) Result panel 398 (unknown) (no date) (unknown) [facility]) Result panel 399 (unknown) (no date) (unknown) [facility]) Result panel 400 (unknown) (no date) (unknown) [facility]) Result panel 401 (unknown) (no date) (unknown) [facility]) Result panel 402 (unknown) (no date) (unknown) [facility]) Result panel 403 (unknown) (no date) (unknown) [facility]) Result panel 404 (unknown) (no date) (unknown) [facility]) Result panel 405 (unknown) (no date) (unknown) [facility]) Result panel 406 (unknown) (no date) (unknown) [facility]) Result panel 407 (unknown) (no date) (unknown) [facility]) Result panel 408 (unknown) (no date) (unknown) [facility]) Result panel 409 (unknown) (no date) (unknown) [facility]) Result panel 410 (unknown) (no date) (unknown) [facility] Result panel 411 (unknown) (no date) (unknown[facility]) Result panel 412 (unknown) (no date) (unknown) [facility]) Result panel 413 (unknown) (no date) (unknown) [facility]) Result panel 414 (unknown) (no date) (unknown) [facility]) Result panel 415 (unknown) (no date) (unknown) [facility]) Result panel 416 (unknown) (no date) (unknown) [facility]) Result panel 417 (unknown) (no date) (unknown) [facility]) Result panel 418 (unknown) (no date) (unknown) [facility]) Result panel 419 (unknown) (no date) (unknown) [facility]) Result panel 420 (unknown) (no date) (unknown) [facility]) Result panel 421 (unknown) (no date) (unknown) [facility]) Result panel 422 (unknown) (no date) (unknown) [facility]) Result panel 423 (unknown) (no date) (unknown) [facility]) Result panel 424 (unknown) (no date) (unknown) [facility]) Result panel 425 (unknown) (no date) (unknown) [facility]) Result panel 426 (unknown) (no date) (unknown) [facility]) Result panel 427 (unknown) (no date) (unknown) [facility]) Result panel 428 (unknown) (no date) (unknown) [facility]) Result panel 429 (unknown) (no date) (unknown) [facility]) Result panel 430 (unknown) (no date) (unknown) [facility]) Result panel 431 (unknown) (no date) (unknown) [facility]) Result panel 432 (unknown) (no date) (unknown) [facility]) Result panel 433 (unknown) (no date) (unknown) [facility]) Result panel 434 (unknown) (no date) (unknown) [facility]) Result panel 435 (unknown) (no date) (unknown) [facility]) Result panel 436 (unknown) (no date) (unknown) [facility]) Result panel 437 (unknown) (no date) (unknown) [facility]) Result panel 438 (unknown) (no date) (unknown[facility]) Result panel 439 (unknown) (no date) (unknown) [facility]) Result panel 440 (unknown) (no date) (unknown) [facility]) Result panel 441 (unknown) (no date) (unknown) [facility]) Result panel 442 (unknown) (no date) (unknown) [facility]) Result panel 443 (unknown) (no date) (unknown) [facility]) Result panel 444 (unknown) (no date) (unknown) [facility]) Result panel 445 (unknown) (no date) (unknown) [facility]) Result panel 446 (unknown) (no date) (unknown) [facility]) Result panel 447 (unknown) (no date) (unknown) [facility]) Result panel 448 (unknown) (no date) (unknown) [facility]) Result panel 449 (unknown) (no date) (unknown) [facility] [facility] unknown) Result panel 450 (unknown) (no date) (unknown) [facility]) Result panel 451 (unknown) (no date) (unknown) [facility]) Result panel 452 (unknown) (no date) (unknown) [facility] Result panel 453 (unknown) (no date) (unknown) [facility]) Result panel 454 (unknown) (no date) (unknown) [facility]) Result panel 455 (unknown) (no date) (unknown) [facility]) Result panel 456 (unknown) (no date) (unknown) [facility]) Result panel 457 (unknown) (no date) (unknown) [facility]) Result panel 458 (unknown) (no date) (unknown) [facility]) Result panel 459 (unknown) (no date) (unknown) [facility]) Result panel 460 (unknown) (no date) (unknown) [facility]) Result panel 461 (unknown) (no date) (unknown) [facility]) Result panel 462 (unknown) (no date) (unknown) [facility]) Result panel 463 (unknown) (no date) (unknown) [facility]) Result panel 464 (unknown) (no date) (unknown) [facility]) Result panel 465 (unknown) (no date) (unknown) [facility]) Result panel 466 (unknown) (no date) (unknown) [facility]) Result panel 467 (unknown) (no date) (unknown) [facility]) Result panel 468 (unknown) (no date) (unknown) [facility]) Result panel 469 (unknown) (no date) (unknown) [facility]) Result panel 470 (unknown) (no date) (unknown) [facility]) Result panel 471 (unknown) (no date) (unknown) [facility]) Result panel 472 (unknown) (no date) (unknown) [facility]) Result panel 473 (unknown) (no date) (unknown) [facility]) Result panel 474 (unknown) (no date) (unknown) [facility]) Result panel 475 (unknown) (no date) (unknown) [facility]) Result panel 476 (unknown) (no date) (unknown) [facility]) Result panel 477 (unknown) (no date) (unknown) [facility]) Result panel 478 (unknown) (no date) (unknown) [facility]) Result panel 479 (unknown) (no date) (unknown) [facility]) Result panel 480 (unknown) (no date) (unknown) [facility]) Result panel 481 (unknown) (no date) (unknown) [facility]) Result panel 482 (unknown) (no date) (unknown) [facility]) Result panel 483 (unknown) (no date) (unknown) [facility]) Result panel 484 (unknown) (no date) (unknown) [facility]) Result panel 485 (unknown) (no date) (unknown) [facility]) Result panel 486 (unknown) (no date) (unknown) [facility]) Result panel 487 (unknown) (no date) (unknown) [facility]) Result panel 488 (unknown) (no date) (unknown) [facility]) Result panel 489 (unknown) (no date) (unknown) [facility]) Result panel 490 (unknown) (no date) (unknown) [facility]) Result panel 491 (unknown) (no date) (unknown) [facility]) Result panel 492 (unknown) (no date) (unknown) [facility]) Result panel 493 (unknown) (no date) (unknown) [facility]) Result panel 494 (unknown) (no date) (unknown) [facility]) Result panel 495 (unknown) (no date) (unknown) [facility]) Result panel 496 (unknown) (no date) (unknown) [facility]) Result panel 497 (unknown) (no date) (unknown) [facility]) Result panel 498 (unknown) (no date) (unknown) [facility]) Result panel 499 (unknown) (no date) (unknown) [facility]) Result panel 500 (unknown) (no date) (unknown) [facility]) Result panel 501 (unknown) (no date) (unknown) [facility]) Result panel 502 (unknown) (no date) (unknown) [facility]) Result panel 503 (unknown) (no date) (unknown) [facility]) Result panel 504 (unknown) (no date) (unknown) [facility]) Result panel 505 (unknown) (no date) (unknown) [facility]) Result panel 506 (unknown) (no date) (unknown) [facility]) Result panel 507 (unknown) (no date) (unknown) [facility]) Result panel 508 (unknown) (no date) (unknown) [facility]) Result panel 509 (unknown) (no date) (unknown) [facility]) Result panel 510 (unknown) (no date) (unknown) [facility]) Result panel 511 (unknown) (no date) (unknown) [facility]) Result panel 512 (unknown) (no date) (unknown) [facility]) Result panel 513 (unknown) (no date) (unknown) [facility]) Result panel 514 (unknown) (no date) (unknown) [facility]) Result panel 515 (unknown) (no date) (unknown) [facility]) Result panel 516 (unknown) (no date) (unknown) [facility]) Result panel 517 (unknown) (no date) (unknown) [facility]) Result panel 518 (unknown) (no date) (unknown) [facility]) Result panel 519 (unknown) (no date) (unknown) [facility]) Result panel 520 (unknown) (no date) (unknown) [facility]) Result panel 521 (unknown) (no date) (unknown) [facility]) Result panel 522 (unknown) (no date) (unknown) [facility]) Result panel 523 (unknown) (no date) (unknown) [facility]) Result panel 524 (unknown) (no date) (unknown) [facility]) Result panel 525 (unknown) (no date) (unknown) [facility]) Result panel 526 (unknown) (no date) (unknown) [facility]) Result panel 527 (unknown) (no date) (unknown) [facility]) Result panel 528 (unknown) (no date) (unknown) [facility]) Result panel 529 (unknown) (no date) (unknown) [facility]) Result panel 530 (unknown) (no date) (unknown) [facility]) Result panel 531 (unknown) (no date) (unknown) [facility]) Result panel 532 (unknown) (no date) (unknown) [facility]) Result panel 533 (unknown) (no date) (unknown) [facility]) Result panel 534 (unknown) (no date) (unknown) [facility]) Result panel 535 (unknown) (no date) (unknown) [facility]) Result panel 536 (unknown) (no date) (unknown) [facility]) Result panel 537 (unknown) (no date) (unknown) [facility]) Result panel 538 (unknown) (no date) (unknown) [facility]) Result panel 539 (unknown) (no date) (unknown) [facility]) Result panel 540 (unknown) (no date) (unknown) [facility]) Result panel 541 (unknown) (no date) (unknown) [facility]) Result panel 542 (unknown) (no date) (unknown) [facility]) Result panel 543 (unknown) (no date) (unknown) [facility]) Result panel 544 (unknown) (no date) (unknown) [facility]) Result panel 545 (unknown) (no (unknown) (unknown) (no value) (units (unk nown) date) unknown) (unknown) (no (unknown) (unknown) (Dilaudid) (units (unk nown) date) unknown) (unknown) (no (unknown) (unknown) [id number] (units (unkno wn) date) unknown) (unknown) (no (unknown) (unknown) 02:06 (units (unkno wn) date) unknown) (unknown) (no (unknown) (unknown) 06/07/22 (units (unkno wn) date) unknown) (unknown) (no (unknown) (unknown) 150 mg PO DAILY (units (unknown) date) Qty: 30 0RF unknown) (unknown) (no (unknown) (unknown) 4 mg PO Q4-6H (units ( unknown) date) PRN (Reason: unknown) pain) Qty: 20 0RF (unknown) (no (unknown) (unknown) 5 mg PO Q4H PRN (units (unknown) date) (Reason: pain) unknown) Qty: 20 0RF (unknown) (no (unknown) (unknown) Acne (-2015) (units (u nknown) date) unknown) (unknown) (no (unknown) (unknown) Age/Sex: 21 / F (units (unknown) date) unknown) (unknown) (no (unknown) (unknown) Alcohol type: (units ( unknown) date) wine unknown) (unknown) (no (unknown) (unknown) Allergies (units (unkn own) date) unknown) (unknown) (no (unknown) (unknown) Allergy/AdvReac (units (unknown) date) Type Severity unknown) Reaction Status Date / Time (unknown) (no (unknown) (unknown) Anesthesia (units (unk nown) date) unknown) (unknown) (no (unknown) (unknown) Blood Pressure (units (unknown) date) 112/71 06/07/22 unknown) 02:06 (unknown) (no (unknown) (unknown) Blood Pressure (units (unknown) date) unknown) (unknown) (no (unknown) (unknown) Chief Complaint: (units (unknown) date) Abdominal Pain unknown) (unknown) (no (unknown) (unknown) Chlamydia (units (unkn own) date) infection () unknown) (unknown) (no (unknown) (unknown) Course (units (unkno wn) date) unknown) (unknown) (no (unknown) (unknown) : 2000 (units (unknown) date) Acct:[id number] unknown) (unknown) (no (unknown) (unknown) Date of Service: (units (unknown) date) 06/07/22 unknown) (unknown) (no (unknown) (unknown) Departure (units (unkn own) date) unknown) (unknown) (no (unknown) (unknown) Discharge Plan (units (unknown) date) unknown) (unknown) (no (unknown) (unknown) ER Physician: (units ( unknown) date) Tremaine Rae unknown) D.O. (unknown) (no (unknown) (unknown) Emergency Report (units (unknown) date) unknown) (unknown) (no (unknown) (unknown) Endometriosis (units ( unknown) date) () unknown) (unknown) (no (unknown) (unknown) Exam (units (unkno wn) date) unknown) (unknown) (no (unknown) (unknown) General (units (unkno wn) date) unknown) (unknown) (no (unknown) (unknown) HPI - Abdominal (units (unknown) date) Pain unknown) (unknown) (no (unknown) (unknown) Heavy menstrual (units (unknown) date) period (-2019) unknown) (unknown) (no (unknown) (unknown) Initial Vital (units ( unknown) date) Signs unknown) (unknown) (no (unknown) (unknown) Initial Vital (units ( unknown) date) Signs: unknown) (unknown) (no (unknown) (unknown) Irregular (units (unkn own) date) menstrual cycle unknown) () (unknown) (no (unknown) (unknown) [facility] (units (unknown) date) [address] unknown) [place] [id number] (unknown) (no (unknown) (unknown) Joel Abrams (units (unknown) date) ELEUTERIO dasilva [Primary unknown) Care Provider] (unknown) (no (unknown) (unknown) Lymphangioma (units (u nknown) date) unknown) (unknown) (no (unknown) (unknown) Medical History (units (unknown) date) (Updated 04/19/22 unknown) @ 10:24 by Sushant Bryant MD) (unknown) (no (unknown) (unknown) Medication (units (unk nown) date) Instructions unknown) Recorded (unknown) (no (unknown) (unknown) Mode of arrival: (units (unknown) date) Ambulatory unknown) (unknown) (no (unknown) (unknown) No Action (units (unkn own) date) unknown) (unknown) (no (unknown) (unknown) Opioids - (units (unkn own) date) Morphine unknown) Analogues Allergy Intermediate rash Verified 04/19/22 07:57 (unknown) (no (unknown) (unknown) Ovarian cyst (units (u nknown) date) unknown) (unknown) (no (unknown) (unknown) Oxygen Delivery (units (unknown) date) Method 06/07/22 unknown) 02:06 (unknown) (no (unknown) (unknown) Oxygen Delivery (units (unknown) date) Method Room Air unknown) (unknown) (no (unknown) (unknown) Painful (units (unkno wn) date) menstrual periods unknown) () (unknown) (no (unknown) (unknown) Patient History (units (unknown) date) unknown) (unknown) (no (unknown) (unknown) Patient: (units (unkno wn) date) Ade Vidales unknown) MR#: [id number] (unknown) (no (unknown) (unknown) Prescriptions: (units (unknown) date) unknown) (unknown) (no (unknown) (unknown) Previous Rx's (units ( unknown) date) unknown) (unknown) (no (unknown) (unknown) Pulse Oximetry (units (unknown) date) 100 06/07/22 unknown) 02:06 (unknown) (no (unknown) (unknown) Pulse Oximetry (units (unknown) date) 100 unknown) (unknown) (no (unknown) (unknown) Pulse Rate 72 (units ( unknown) date) 06/07/22 02:06 unknown) (unknown) (no (unknown) (unknown) Pulse Rate 72 (units ( unknown) date) unknown) (unknown) (no (unknown) (unknown) Referrals: (units (unk nown) date) unknown) (unknown) (no (unknown) (unknown) Related Data (units (u nknown) date) unknown) (unknown) (no (unknown) (unknown) Respiratory Rate (units (unknown) date) 16 06/07/22 02:06 unknown) (unknown) (no (unknown) (unknown) Respiratory Rate (units (unknown) date) 16 unknown) (unknown) (no (unknown) (unknown) S/P ACL (units (unkno wn) date) reconstruction unknown) (-06/08/21) (unknown) (no (unknown) (unknown) Signed By: (units (unk nown) date) unknown) (unknown) (no (unknown) (unknown) Smoking Status: (units (unknown) date) Current some day unknown) smoker (unknown) (no (unknown) (unknown) Social History (units (unknown) date) unknown) (unknown) (no (unknown) (unknown) Source: patient (units (unknown) date) unknown) (unknown) (no (unknown) (unknown) Stated (units (unkno wn) date) Complaint: ABD unknown) PAIN (unknown) (no (unknown) (unknown) Substance Use (units ( unknown) date) Type: does not unknown) use (unknown) (no (unknown) (unknown) Surgical History (units (unknown) date) (Updated 04/19/22 unknown) @ 10:24 by Sushant Bryant MD) (unknown) (no (unknown) (unknown) TOA (units (unkno wn) date) (tubo-ovarian unknown) abscess) (-06/28/21) (unknown) (no (unknown) (unknown) Temperature 98.4 (units (unknown) date) F 06/07/22 02:06 unknown) (unknown) (no (unknown) (unknown) Temperature 98.4 (units (unknown) date) F unknown) (unknown) (no (unknown) (unknown) Time Seen by (units (u nknown) date) Provider: unknown) 06/07/22 02:07 (unknown) (no (unknown) (unknown) Vital Signs - 8 (units (unknown) date) hr unknown) (unknown) (no (unknown) (unknown) Vital Signs (units (un known) date) unknown) (unknown) (no (unknown) (unknown) Vital signs: (units (u nknown) date) unknown) (unknown) (no (unknown) (unknown) alcohol intake (units (unknown) date) frequency: unknown) holidays/special occasions only (unknown) (no (unknown) (unknown) alcohol intake: (units (unknown) date) current unknown) (unknown) (no (unknown) (unknown) clindamycin HCl (units (unknown) date) 150 mg capsule unknown) 150 mg PO DAILY #30 caps 03/17/22 (unknown) (no (unknown) (unknown) clindamycin HCl (units (unknown) date) 150 mg capsule unknown) (unknown) (no (unknown) (unknown) doxycycline (units (un known) date) AdvReac unknown) Intermediate vomitt Verified 04/19/22 07:57 (unknown) (no (unknown) (unknown) household (units (unkn own) date) members: unknown) friend(s) (unknown) (no (unknown) (unknown) hydromorphone 4 (units (unknown) date) mg tablet 4 mg PO unknown) Q4-6H PRN pain #20 tabs 04/08/22 (unknown) (no (unknown) (unknown) hydromorphone (units ( unknown) date) [Dilaudid] 4 mg unknown) tablet (unknown) (no (unknown) (unknown) oxycodone 5 mg (units (unknown) date) tablet 5 mg PO unknown) Q4H PRN pain #20 tabs 04/07/22 (unknown) (no (unknown) (unknown) oxycodone 5 mg (units (unknown) date) tablet unknown) (unknown) (no (unknown) (unknown) tobacco type: (units ( unknown) date) vaping unknown) Result panel 546 (unknown) (no (unknown) (unknown) (no value) (units (unk nown) date) unknown) (unknown) (no (unknown) (unknown) [id number] (units (unkn own) date) unknown) (unknown) (no (unknown) (unknown) 1. A 4.0 x 5.3 x (units (unknown) date) 5.2 cm complex unknown) cystic mass in left adnexa. Differential (unknown) (no (unknown) (unknown) 06/07/22 (units (unkno wn) date) unknown) (unknown) (no (unknown) (unknown) [address] [place] [address] (units (unknown) date) unknown) (unknown) (no (unknown) (unknown) 2. There is a (units ( unknown) date) trace amount of unknown) free fluid in the cul-de-sac. (unknown) (no (unknown) (unknown) ABDOMEN: (units (unkno wn) date) unknown) (unknown) (no (unknown) (unknown) Abdominal Nodes: (units (unknown) date) No retroperitoneal unknown) or mesenteric adenopathy by size criteria. (unknown) (no (unknown) (unknown) Accession Number: (units (unknown) date) [id number] unknown) (unknown) (no (unknown) (unknown) Adrenal Glands: (units (unknown) date) Unremarkable. unknown) (unknown) (no (unknown) (unknown) After the (units (unkn own) date) administration of unknown) oral and IV contrast, axial sections were acquired (unknown) (no (unknown) (unknown) Age/Sex: 21 / F (units (unknown) date) Date of Service: unknown) (unknown) (no (unknown) (unknown) [place], [place] (units ( unknown) date) [id number] unknown) (unknown) (no (unknown) (unknown) Approved by: (units (u nknown) date) Aldo Portillo M.D. on unknown) 06/07/2022 at 8:32 (unknown) (no (unknown) (unknown) Biliary ducts: (units (unknown) date) Unremarkable. unknown) (unknown) (no (unknown) (unknown) Bladder: (units (unkno wn) date) Unremarkable. unknown) (unknown) (no (unknown) (unknown) Bones: (units (unkno wn) date) Unremarkable. unknown) (unknown) (no (unknown) (unknown) COMPARISON: (units (un known) date) [facility], unknown) US, US PELVIC COMPLETE, 06/07/2022, 5:30. (unknown) (no (unknown) (unknown) CT Scan Report (units (unknown) date) unknown) (unknown) (no (unknown) (unknown) : 2000 (units (unknown) date) Acct:[id number] unknown) (unknown) (no (unknown) (unknown) Dictated by: (units (u nknown) date) Aldo Portillo M.D. on unknown) 06/07/2022 at 8:24 (unknown) (no (unknown) (unknown) FINDINGS: (units (unkn own) date) unknown) (unknown) (no (unknown) (unknown) Gallbladder: (units (u nknown) date) Unremarkable. unknown) (unknown) (no (unknown) (unknown) Heart: No (units (unkn own) date) significant unknown) findings. (unknown) (no (unknown) (unknown) IMPRESSION: (units (un known) date) unknown) (unknown) (no (unknown) (unknown) INDICATIONS: (units (u nknown) date) severe LLQ pain, unknown) recent pelvic surgery, hx abscess (unknown) (no (unknown) (unknown) Image quality: (units (unknown) date) Excellent. unknown) (unknown) (no (unknown) (unknown) [facility] (units (unknown) date) unknown) (unknown) (no (unknown) (unknown) Kidneys and (units (un known) date) Ureters: unknown) Unremarkable. (unknown) (no (unknown) (unknown) Liver: (units (unkno wn) date) Unremarkable. unknown) (unknown) (no (unknown) (unknown) Loc: ED (units (unkno wn) date) unknown) (unknown) (no (unknown) (unknown) Lung bases: (units (un known) date) Unremarkable. unknown) (unknown) (no (unknown) (unknown) Miscellaneous: No (units (unknown) date) inguinal hernias unknown) are seen. (unknown) (no (unknown) (unknown) No significant (units (unknown) date) discrepancy with unknown) the night guard radiology preliminary report. (unknown) (no (unknown) (unknown) Ordering (units (unkno wn) date) Provider: unknown) Tremaine Rae D.O. (unknown) (no (unknown) (unknown) PELVIS: (units (unkno wn) date) unknown) (unknown) (no (unknown) (unknown) PROCEDURE: CT (units ( unknown) date) ABDOMEN PELVIS W unknown) CON (unknown) (no (unknown) (unknown) Pancreas: (units (unkn own) date) Unremarkable. unknown) (unknown) (no (unknown) (unknown) Patient: (units (unkno wn) date) Ade Vidales E unknown) MR#: [id number] (unknown) (no (unknown) (unknown) Pelvic Nodes: No (units (unknown) date) enlarged lymph unknown) nodes. (unknown) (no (unknown) (unknown) Pelvic Organs: (units (unknown) date) Unremarkable. unknown) Uterus is normal. There is a complex cystic (unknown) (no (unknown) (unknown) Peritoneum: No (units (unknown) date) abnormal unknown) intraperitoneal fluid. No free air. (unknown) (no (unknown) (unknown) Procedure: CT (units ( unknown) date) abdomen pelvis w unknown) con (unknown) (no (unknown) (unknown) Signed (units (unkno wn) date) unknown) (unknown) (no (unknown) (unknown) Spleen: (units (unkno wn) date) Unremarkable. unknown) (unknown) (no (unknown) (unknown) Stomach and (units (un known) date) Bowel: Stomach, unknown) small bowel loops, and colon are unremarkable. (unknown) (no (unknown) (unknown) TECHNIQUE: (units (unk nown) date) unknown) (unknown) (no (unknown) (unknown) There is a (units (unk nown) date) unknown) (unknown) (no (unknown) (unknown) Ventral Wall: No (units (unknown) date) hernia. unknown) (unknown) (no (unknown) (unknown) Vessels: Aorta (units (unknown) date) and inferior vena unknown) cava are normal in size. (unknown) (no (unknown) (unknown) adjustment (units (unk nown) date) unknown) (unknown) (no (unknown) (unknown) amount of free (units (unknown) date) fluid in the unknown) cul-de-sac. (unknown) (no (unknown) (unknown) diagnoses (units (unkn own) date) unknown) (unknown) (no (unknown) (unknown) from the (units (unkno wn) date) unknown) (unknown) (no (unknown) (unknown) gynecological (units ( unknown) date) follow-up. unknown) (unknown) (no (unknown) (unknown) include complex (units (unknown) date) ovarian cyst and unknown) tubo-ovarian abscess. Recommend pelvic (unknown) (no (unknown) (unknown) is a trace (units (unk nown) date) unknown) (unknown) (no (unknown) (unknown) left adnexa (units (un known) date) measuring 4.0 x unknown) 5.3 x 5.2 cm. Right ovary is unremarkable. There (unknown) (no (unknown) (unknown) lung bases to the (units (unknown) date) pubic symphysis. unknown) Coronal and sagittal reformats were (unknown) (no (unknown) (unknown) mass in the (units (un known) date) unknown) (unknown) (no (unknown) (unknown) moderate amount (units (unknown) date) of stool in colon. unknown) (unknown) (no (unknown) (unknown) of mA and/or kV (units (unknown) date) according to unknown) patient size. (unknown) (no (unknown) (unknown) performed. For (units (unknown) date) unknown) (unknown) (no (unknown) (unknown) radiation dose (units (unknown) date) reduction, the unknown) following was used: automated exposure control, (unknown) (no (unknown) (unknown) ultrasound and (units (unknown) date) unknown) Result panel 547 (unknown) (no date) (unknown) (unknown) 1.0 % (unkn own) (unknown) (no date) (unknown) (unknown) 100 /ul (unkn own) (unknown) (no date) (unknown) (unknown) 12.5 g/dl (unkn own) (unknown) (no date) (unknown) (unknown) 14.0 % (unkn own) (unknown) (no date) (unknown) (unknown) 2700 /ul (unkn own) (unknown) (no date) (unknown) (unknown) 29.3 pg (unkn own) (unknown) (no date) (unknown) (unknown) 3.9 % (unkn own) (unknown) (no date) (unknown) (unknown) 300 /ul (unkn own) (unknown) (no date) (unknown) (unknown) 32.4 % (unkn own) (unknown) (no date) (unknown) (unknown) 34.0 % (unkn own) (unknown) (no date) (unknown) (unknown) 359 x10 3/ul (unkn own) (unknown) (no date) (unknown) (unknown) 36.6 % (unkn own) (unknown) (no date) (unknown) (unknown) 4.25 x10 6/ul (unkn own) (unknown) (no date) (unknown) (unknown) 4700 /ul (unkn own) (unknown) (no date) (unknown) (unknown) 54.8 % (unkn own) (unknown) (no date) (unknown) (unknown) 7.9 % (unkn own) (unknown) (no date) (unknown) (unknown) 700 /ul (unkn own) (unknown) (no date) (unknown) (unknown) 8.5 x10 3/ul (unkn own) (unknown) (no date) (unknown) (unknown) 86.2 fl (unkn own) Result panel 548 (unknown) (no date) (unknown) (unknown) > 60 ml/min (unkn own) (unknown) (no date) (unknown) (unknown) > 60 ml/min (unkn own) (unknown) (no date) (unknown) (unknown) 0.4 mg/dl (unkn own) (unknown) (no date) (unknown) (unknown) 0.75 mg/dl (unkn own) (unknown) (no date) (unknown) (unknown) 1.5 (units unknown) (unknown) (unknown) (no date) (unknown) (unknown) 106 mmol/l (unkn own) (unknown) (no date) (unknown) (unknown) 11 mg/dl (unkn own) (unknown) (no date) (unknown) (unknown) 113 u/l (unkn own) (unknown) (no date) (unknown) (unknown) 13 iu/l (unkn own) (unknown) (no date) (unknown) (unknown) 138 mmol/l (unkn own) (unknown) (no date) (unknown) (unknown) 14.7 (units unknown) (unknown) (unknown) (no date) (unknown) (unknown) 16 iu/l (unkn own) (unknown) (no date) (unknown) (unknown) 2.6 g/dl (unkn own) (unknown) (no date) (unknown) (unknown) 26 mmol/l (unkn own) (unknown) (no date) (unknown) (unknown) 3.6 mmol/l (unkn own) (unknown) (no date) (unknown) (unknown) 4.0 g/dl (unkn own) (unknown) (no date) (unknown) (unknown) 6.6 g/dl (unkn own) (unknown) (no date) (unknown) (unknown) 8.8 mg/dl (unkn own) (unknown) (no date) (unknown) (unknown) 81 u/l (unkn own) (unknown) (no date) (unknown) (unknown) 99 mg/dl (unkn own) (unknown) (no date) (unknown) (unknown) 99 mg/dl (unkn own) Result panel 549 (unknown) (no (unknown) (unknown) (no value) (units (unk nown) date) unknown) (unknown) (no (unknown) (unknown) [id number] (units (unkn own) date) unknown) (unknown) (no (unknown) (unknown) 1. The left (units (un known) date) ovary is unknown) enlarged. There is a complex cyst in the left ovary. (unknown) (no (unknown) (unknown) 06/07/22 (units (unkno wn) date) unknown) (unknown) (no (unknown) (unknown) [address] [place] [address] (units (unknown) date) unknown) (unknown) (no (unknown) (unknown) 2. Normal right (units (unknown) date) ovary and uterus. unknown) (unknown) (no (unknown) (unknown) Accession (units (unkn own) date) Number: unknown) [id number] (unknown) (no (unknown) (unknown) Additional (units (unk nown) date) endovaginal unknown) scanning was necessary due to incomplete visualization (unknown) (no (unknown) (unknown) Age/Sex: 21 / F (units (unknown) date) Date of Service: unknown) (unknown) (no (unknown) (unknown) LASHA Davison (units ( unknown) date) [id number] unknown) (unknown) (no (unknown) (unknown) Approved by: (units (u nknown) date) Aldo Portillo M.D. unknown) on 06/07/2022 at 9:03 (unknown) (no (unknown) (unknown) COMPARISON: (units (un known) date) [facility], unknown) CT, CT ABDOMEN PELVIS W CON, 06/07/2022, 3:28. (unknown) (no (unknown) (unknown) : 2000 (units (unknown) date) Acct:[id number] unknown) (unknown) (no (unknown) (unknown) Dictated by: (units (u nknown) date) Aldo Portillo M.D. unknown) on 06/07/2022 at 8:56 (unknown) (no (unknown) (unknown) FINDINGS: (units (unkn own) date) unknown) (unknown) (no (unknown) (unknown) IMPRESSION: (units (un known) date) unknown) (unknown) (no (unknown) (unknown) INDICATIONS: (units (u nknown) date) LEFT LOWER unknown) QUADRANT PAIN. FOLLOW UP CT. (unknown) (no (unknown) (unknown) [facility] (units (unknown) date) unknown) (unknown) (no (unknown) (unknown) Loc: ED (units (unkno wn) date) unknown) (unknown) (no (unknown) (unknown) No significant (units (unknown) date) discrepancy with unknown) the night guard radiology preliminary report. (unknown) (no (unknown) (unknown) Ordering (units (unkno wn) date) Provider: unknown) Tremaine Rae D.O. (unknown) (no (unknown) (unknown) Other: No (units (unkn own) date) pathologic free unknown) abdominal or pelvic fluid. (unknown) (no (unknown) (unknown) Ovaries: The (units (u nknown) date) right ovary unknown) measures 3.0 x 1.5 x 2.7 cm, with a calculated (unknown) (no (unknown) (unknown) PROCEDURE: US (units ( unknown) date) PELVIC COMPLETE unknown) (unknown) (no (unknown) (unknown) Patient: (units (unkno wn) date) Flash,Grace E unknown) MR#: M (unknown) (no (unknown) (unknown) Procedure: US (units ( unknown) date) pelvic complete unknown) (unknown) (no (unknown) (unknown) Real-time (units (unkn own) date) scanning was unknown) performed of the pelvic organs, with image (unknown) (no (unknown) (unknown) Recommend (units (unkn own) date) unknown) (unknown) (no (unknown) (unknown) Signed (units (unkno wn) date) unknown) (unknown) (no (unknown) (unknown) TECHNIQUE: (units (unk nown) date) unknown) (unknown) (no (unknown) (unknown) There is a (units (unk nown) date) unknown) (unknown) (no (unknown) (unknown) To assist (units (unkn own) date) unknown) (unknown) (no (unknown) (unknown) Ultrasound (units (unk nown) date) Report unknown) (unknown) (no (unknown) (unknown) Uterus: Uterus (units (unknown) date) is anteverted and unknown) normal in size at 7.1 x 5.2 x 3.8 cm. The (unknown) (no (unknown) (unknown) We strive to (units (u nknown) date) produce accurate, unknown) complete, and clear reports of imaging services. (unknown) (no (unknown) (unknown) adnexal and (units (un known) date) endometrial unknown) structures by transabdominal scanning. (unknown) (no (unknown) (unknown) and voice (units (unkn own) date) recognition unknown) software. Therefore, it may contain abnormal punctuation, (unknown) (no (unknown) (unknown) clinical (units (unkno wn) date) correlation. unknown) After adequate treatment, a follow-up ultrasound is (unknown) (no (unknown) (unknown) documentation. (units (unknown) date) unknown) (unknown) (no (unknown) (unknown) fluid filled (units (u nknown) date) structure unknown) adjacent to the left ovary. Differential diagnoses are (unknown) (no (unknown) (unknown) hemorrhagic (units (un known) date) ovarian cyst unknown) versus hydrosalpinx and tubo-ovarian abscess. (unknown) (no (unknown) (unknown) homogeneous. The (units (unknown) date) endometrium unknown) measures 10.9 mm combined thickness. (unknown) (no (unknown) (unknown) in each (units (unkno wn) date) unknown) (unknown) (no (unknown) (unknown) inaccuracies. (units ( unknown) date) unknown) (unknown) (no (unknown) (unknown) insertions (units (unk nown) date) and/or omissions. unknown) Occasional wrong-word or sound-alike substitutions (unknown) (no (unknown) (unknown) left ovary, (units (un known) date) unknown) (unknown) (no (unknown) (unknown) may (units (unkno wn) date) unknown) (unknown) (no (unknown) (unknown) myometrium is (units ( unknown) date) unknown) (unknown) (no (unknown) (unknown) occur. Though we (units (unknown) date) review the report unknown) and make efforts to correct it, we do (unknown) (no (unknown) (unknown) of 6.3 cc. The (units (unknown) date) left ovary unknown) measures 5.1 x 4.5 x 4 point cm, with a calculated (unknown) (no (unknown) (unknown) of the (units (unkno wn) date) unknown) (unknown) (no (unknown) (unknown) ovarian volume (units (unknown) date) unknown) (unknown) (no (unknown) (unknown) ovarian (units (unkno wn) date) unknown) (unknown) (no (unknown) (unknown) ovary. No (units (unkn own) date) adnexal masses unknown) are seen. (unknown) (no (unknown) (unknown) recommend that (units (unknown) date) unknown) (unknown) (no (unknown) (unknown) suggested. (units (unk nown) date) unknown) (unknown) (no (unknown) (unknown) templates (units (unkn own) date) unknown) (unknown) (no (unknown) (unknown) the report be (units ( unknown) date) read carefully in unknown) proper context to recognize any text (unknown) (no (unknown) (unknown) there is (units (unkno wn) date) anechoic fluid unknown) filled structure. Less than 12 follicles can be seen (unknown) (no (unknown) (unknown) us in improving (units (unknown) date) patient care, unknown) this report was composed using standard report (unknown) (no (unknown) (unknown) volume of 59.1 (units (unknown) date) cc. There is a unknown) complex cyst in left ovary. Superior to the Result panel 550 (unknown) (no (unknown) (unknown) (no value) (units (unk nown) date) unknown) (unknown) (no (unknown) (unknown) (Dilaudid) (units (unk nown) date) unknown) (unknown) (no (unknown) (unknown) [id number] (units (unkno wn) date) unknown) (unknown) (no (unknown) (unknown) 02:06 (units (unkno wn) date) unknown) (unknown) (no (unknown) (unknown) 02:55 02:55 (units (un known) date) unknown) (unknown) (no (unknown) (unknown) 06/07/22 02:41 (units (unknown) date) unknown) (unknown) (no (unknown) (unknown) 06/07/22 02:55 (units (unknown) date) unknown) (unknown) (no (unknown) (unknown) 06/07/22 03:01 (units (unknown) date) unknown) (unknown) (no (unknown) (unknown) 06/07/22 04:52 (units (unknown) date) unknown) (unknown) (no (unknown) (unknown) 06/07/22 06/07/22 (units (unknown) date) Range/Units unknown) (unknown) (no (unknown) (unknown) 06/07/22 (units (unkno wn) date) unknown) (unknown) (no (unknown) (unknown) 12 point review of (units (unknown) date) systems is negative unknown) except for those stated above (unknown) (no (unknown) (unknown) 150 mg PO DAILY (units (unknown) date) Qty: 30 0RF unknown) (unknown) (no (unknown) (unknown) 21-year-old female (units (unknown) date) nonsmoker with unknown) history of a relatively recent pelvic surgery (unknown) (no (unknown) (unknown) 4 mg PO Q4-6H PRN (units (unknown) date) (Reason: pain) Qty: unknown) 20 0RF (unknown) (no (unknown) (unknown) 5 mg PO Q4H PRN (units (unknown) date) (Reason: pain) Qty: unknown) 20 0RF (unknown) (no (unknown) (unknown) ALT 13 (<35) IU/L (units (unknown) date) unknown) (unknown) (no (unknown) (unknown) AST 16 (14-36) (units (unknown) date) IU/L unknown) (unknown) (no (unknown) (unknown) Acne (-2016) (units (u nknown) date) unknown) (unknown) (no (unknown) (unknown) Age/Sex: 21 / F (units (unknown) date) unknown) (unknown) (no (unknown) (unknown) Albumin 4.0 (units (un known) date) (3.5-5.0) g/dL unknown) (unknown) (no (unknown) (unknown) Albumin/Globulin (units (unknown) date) Ratio 1.5 (1.0-2.8) unknown) (unknown) (no (unknown) (unknown) Alcohol type: wine (units (unknown) date) unknown) (unknown) (no (unknown) (unknown) Alkaline (units (unkno wn) date) Phosphatase 81 unknown) (38-126) U/L (unknown) (no (unknown) (unknown) Allergies (units (unkn own) date) unknown) (unknown) (no (unknown) (unknown) Allergy/AdvReac (units (unknown) date) Type Severity unknown) Reaction Status Date / Time (unknown) (no (unknown) (unknown) Anesthesia (units (unk nown) date) unknown) (unknown) (no (unknown) (unknown) BACK: Nontender (units (unknown) date) without deformity unknown) or crepitance. No flank tenderness. (unknown) (no (unknown) (unknown) BUN 11 (7-17) (units ( unknown) date) mg/dL unknown) (unknown) (no (unknown) (unknown) BUN/Creatinine (units (unknown) date) Ratio 14.7 (6-22) unknown) (unknown) (no (unknown) (unknown) Baso # (Auto) 100 (units (unknown) date) (0-100) /uL unknown) (unknown) (no (unknown) (unknown) Baso % (Auto) 1.0 (units (unknown) date) (0-2) % unknown) (unknown) (no (unknown) (unknown) Bedside Urine (units ( unknown) date) Bilirubin - unknown) Negative (unknown) (no (unknown) (unknown) Bedside Urine (units ( unknown) date) Glucose Negative unknown) (unknown) (no (unknown) (unknown) Bedside Urine (units ( unknown) date) Ketone - Negative unknown) (unknown) (no (unknown) (unknown) Bedside Urine (units ( unknown) date) Leukocytes - unknown) Negative (unknown) (no (unknown) (unknown) Bedside Urine (units ( unknown) date) Nitrite - Negative unknown) (unknown) (no (unknown) (unknown) Bedside Urine (units ( unknown) date) Occult Blood - unknown) Negative (unknown) (no (unknown) (unknown) Bedside Urine (units ( unknown) date) Protein - Negative unknown) (unknown) (no (unknown) (unknown) Bedside Urine (units ( unknown) date) Urobilinogen - unknown) Negative (unknown) (no (unknown) (unknown) Bedside Urine pH (units (unknown) date) 6.0 unknown) (unknown) (no (unknown) (unknown) Blood Pressure (units (unknown) date) 11271 06/07/22 unknown) 02:06 (unknown) (no (unknown) (unknown) Blood Pressure (units (unknown) date) unknown) (unknown) (no (unknown) (unknown) CARDIOVASCULAR: (units (unknown) date) Denies chest pain, unknown) palpitations, orthopnea, edema, (unknown) (no (unknown) (unknown) CARDIOVASCULAR: (units (unknown) date) Regular rate and unknown) rhythm without murmurs, gallops, or rubs. (unknown) (no (unknown) (unknown) CT abdomen pelvis (units (unknown) date) w con Stat unknown) (unknown) (no (unknown) (unknown) Calcium 8.8 (units (un known) date) (8.4-10.2) mg/dL unknown) (unknown) (no (unknown) (unknown) Carbon Dioxide 26 (units (unknown) date) (22-32) mmol/L unknown) (unknown) (no (unknown) (unknown) Chief Complaint: (units (unknown) date) Abdominal Pain unknown) (unknown) (no (unknown) (unknown) Chlamydia (units (unkn own) date) infection (-2021) unknown) (unknown) (no (unknown) (unknown) Chloride 106 (units (u nknown) date) (98-107) mmol/L unknown) (unknown) (no (unknown) (unknown) Complete Blood (units (unknown) date) Count AUTO DIFF unknown) Stat (unknown) (no (unknown) (unknown) Comprehensive (units ( unknown) date) Metabolic Panel unknown) Stat (unknown) (no (unknown) (unknown) Course (units (unkno wn) date) unknown) (unknown) (no (unknown) (unknown) Creatinine 0.75 (units (unknown) date) (0.52-1.04) mg/dL unknown) (unknown) (no (unknown) (unknown) : 2000 (units (unknown) date) Acct:[id number] unknown) (unknown) (no (unknown) (unknown) Date of Service: (units (unknown) date) 06/07/22 unknown) (unknown) (no (unknown) (unknown) Departure (units (unkn own) date) unknown) (unknown) (no (unknown) (unknown) Discharge Plan (units (unknown) date) unknown) (unknown) (no (unknown) (unknown) Discontinued (units (u nknown) date) Medications unknown) (unknown) (no (unknown) (unknown) Documented By: DKB (units (unknown) date) unknown) (unknown) (no (unknown) (unknown) ED Orders (units (unkn own) date) unknown) (unknown) (no (unknown) (unknown) EKG-12 Lead Stat (units (unknown) date) unknown) (unknown) (no (unknown) (unknown) ENT: Nose without (units (unknown) date) bleeding, purulent unknown) drainage. Throat without erythema, (unknown) (no (unknown) (unknown) ER Physician: (units ( unknown) date) Tremaine Rae D.O. unknown) (unknown) (no (unknown) (unknown) EXTREMITIES: No (units (unknown) date) edema or joint unknown) tenderness. (unknown) (no (unknown) (unknown) EYES: Pupils equal (units (unknown) date) round and reactive. unknown) Extraocular motions intact. No scleral (unknown) (no (unknown) (unknown) Emergency Report (units (unknown) date) unknown) (unknown) (no (unknown) (unknown) Endometriosis (units ( unknown) date) (-1) unknown) (unknown) (no (unknown) (unknown) Eos # (Auto) 300 (units (unknown) date) (0-450) /uL unknown) (unknown) (no (unknown) (unknown) Eos % (Auto) 3.9 (units (unknown) date) (2-4) % unknown) (unknown) (no (unknown) (unknown) Esterase (units (unkno wn) date) unknown) (unknown) (no (unknown) (unknown) Estimated GFR > 60 (units (unknown) date) (>60) mL/min unknown) (unknown) (no (unknown) (unknown) Exam Narrative: (units (unknown) date) unknown) (unknown) (no (unknown) (unknown) Exam (units (unkno wn) date) unknown) (unknown) (no (unknown) (unknown) GASTROINTESTINAL (units (unknown) date) see HPI unknown) (unknown) (no (unknown) (unknown) GASTROINTESTINAL: (units (unknown) date) Abdomen soft, unknown) non-tender, nondistended. (unknown) (no (unknown) (unknown) GENERAL: Denies (units (unknown) date) chills, fatigue, unknown) malaise, fever, sweats. (unknown) (no (unknown) (unknown) GENERAL: [21] year (units (unknown) date) old patient appears unknown) stated age. Well-developed patient, in (unknown) (no (unknown) (unknown) : D see HPI (units ( unknown) date) unknown) (unknown) (no (unknown) (unknown) General (units (unkno wn) date) unknown) (unknown) (no (unknown) (unknown) Globulin 2.6 (units (u nknown) date) (1.7-4.1) g/dL unknown) (unknown) (no (unknown) (unknown) Glucose 99 (units (unk nown) date) (70-100) mg/dL unknown) (unknown) (no (unknown) (unknown) HEAD: Atraumatic. (units (unknown) date) Normocephalic. unknown) (unknown) (no (unknown) (unknown) HEENT: Denies (units ( unknown) date) sinus pain, ear unknown) pain, sore throat, difficulty swallowing, (unknown) (no (unknown) (unknown) HPI - Abdominal (units (unknown) date) Pain unknown) (unknown) (no (unknown) (unknown) HPI narrative: (units (unknown) date) unknown) (unknown) (no (unknown) (unknown) Hct 36.6 (36-46) % (units (unknown) date) unknown) (unknown) (no (unknown) (unknown) Heavy menstrual (units (unknown) date) period (-2019) unknown) (unknown) (no (unknown) (unknown) Hgb 12.5 (units (unkno wn) date) (12.0-16.0) g/dL unknown) (unknown) (no (unknown) (unknown) History of Present (units (unknown) date) Illness unknown) (unknown) (no (unknown) (unknown) Initial Vital (units ( unknown) date) Signs unknown) (unknown) (no (unknown) (unknown) Initial Vital (units ( unknown) date) Signs: unknown) (unknown) (no (unknown) (unknown) Irregular (units (unkn own) date) menstrual cycle unknown) (-2020) (unknown) (no (unknown) (unknown) [facility] (units (unknown) date) [address] unknown) [place] [address] (unknown) (no (unknown) (unknown) Agatha Abrams, (units (unknown) date) 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 [Primary Care unknown) Provider] (unknown) (no (unknown) (unknown) Ketorolac (units (unkn own) date) Tromethamine unknown) (Ketorolac 30 Mg/Ml Vial) 15 mg IV NOW ONE (unknown) (no (unknown) (unknown) Lab Data (units (unkno wn) date) unknown) (unknown) (no (unknown) (unknown) Lab Results (units (un known) date) unknown) (unknown) (no (unknown) (unknown) Labs: (units (unkno wn) date) unknown) (unknown) (no (unknown) (unknown) Last Admin: (units (un known) date) 06/07/22 04:13 unknown) Dose: Not Given (unknown) (no (unknown) (unknown) Last Admin: (units (un known) date) 06/07/22 04:20 unknown) Dose: 15 mg (unknown) (no (unknown) (unknown) Lipase 113 (units (unk nown) date) (23-300) U/L unknown) (unknown) (no (unknown) (unknown) Lipase Stat (units (un known) date) unknown) (unknown) (no (unknown) (unknown) Lymph # (Auto) (units (unknown) date) 2700 ([id number]) unknown) /uL (unknown) (no (unknown) (unknown) Lymph % (Auto) (units (unknown) date) 32.4 (25-40) % unknown) (unknown) (no (unknown) (unknown) Lymphangioma (units (u nknown) date) unknown) (unknown) (no (unknown) (unknown) MCH 29.3 (26-34) (units (unknown) date) PG unknown) (unknown) (no (unknown) (unknown) MCHC 34.0 (30-36) (units (unknown) date) % unknown) (unknown) (no (unknown) (unknown) MCV 86.2 (80-100) (units (unknown) date) fL unknown) (unknown) (no (unknown) (unknown) MDM - Abdominal (units (unknown) date) Pain unknown) (unknown) (no (unknown) (unknown) MUSCULOSKELETAL: (units (unknown) date) denies weakness, unknown) joint pain, or bony pain (unknown) (no (unknown) (unknown) Medical History (units (unknown) date) (Reviewed 06/07/22 unknown) @ 05:36 by Tremaine Rae DO) (unknown) (no (unknown) (unknown) Medication (units (unk nown) date) Instructions unknown) Recorded (unknown) (no (unknown) (unknown) Mode of arrival: (units (unknown) date) Ambulatory unknown) (unknown) (no (unknown) (unknown) [place] # (Auto) 700 (units (unknown) date) (0-900) /uL unknown) (unknown) (no (unknown) (unknown) [place] % (Auto) 7.9 (units (unknown) date) (3-14) % unknown) (unknown) (no (unknown) (unknown) NECK: Trachea (units ( unknown) date) midline. Non tender unknown) (unknown) (no (unknown) (unknown) NEURO: AOx3. (units (u nknown) date) unknown) (unknown) (no (unknown) (unknown) NEUROLOGIC: Denies (units (unknown) date) weakness, headache, unknown) numbness, change in speech, confusion, (unknown) (no (unknown) (unknown) Narrative (units (unkn own) date) unknown) (unknown) (no (unknown) (unknown) Narrative: (units (unk nown) date) unknown) (unknown) (no (unknown) (unknown) Neut # (Auto) 4700 (units (unknown) date) (5684-9264) /uL unknown) (unknown) (no (unknown) (unknown) Neut % (Auto) 54.8 (units (unknown) date) (50-75) % unknown) (unknown) (no (unknown) (unknown) No Action (units (unkn own) date) unknown) (unknown) (no (unknown) (unknown) Ondansetron HCl (units (unknown) date) (Ondansetron 4 Mg unknown) Odt) 4 mg PO NOW ONE (unknown) (no (unknown) (unknown) Ondansetron HCl (units (unknown) date) (Ondansetron 4 Mg/2 unknown) Ml Inj) 4 mg IV NOW ONE (unknown) (no (unknown) (unknown) Opioids - Morphine (units (unknown) date) Analogues Allergy unknown) Intermediate rash Verified 04/19/22 07:57 (unknown) (no (unknown) (unknown) Ordered: (units (unkno wn) date) unknown) (unknown) (no (unknown) (unknown) Orders (units (unkno wn) date) unknown) (unknown) (no (unknown) (unknown) Ovarian cyst (units (u nknown) date) unknown) (unknown) (no (unknown) (unknown) Oxygen Delivery (units (unknown) date) Method 06/07/22 unknown) 02:06 (unknown) (no (unknown) (unknown) Oxygen Delivery (units (unknown) date) Method Room Air unknown) (unknown) (no (unknown) (unknown) PSYCHIATRIC: No (units (unknown) date) concerning unknown) psychosocial issues. (unknown) (no (unknown) (unknown) Painful menstrual (units (unknown) date) periods () unknown) (unknown) (no (unknown) (unknown) Patient History (units (unknown) date) unknown) (unknown) (no (unknown) (unknown) Patient: (units (unkno wn) date) Ade Vidales unknown) MR#: [id number] (unknown) (no (unknown) (unknown) Plt Count 359 (units ( unknown) date) (150-400) X103/uL unknown) (unknown) (no (unknown) (unknown) Point of Care (units ( unknown) date) Testing unknown) (unknown) (no (unknown) (unknown) Point of care (units ( unknown) date) testing: unknown) (unknown) (no (unknown) (unknown) Potassium 3.6 (units ( unknown) date) (3.4-5.1) mmol/L unknown) (unknown) (no (unknown) (unknown) Test (units (unknown) date) Results Negative unknown) (unknown) (no (unknown) (unknown) Prescriptions: (units (unknown) date) unknown) (unknown) (no (unknown) (unknown) Previous Rx's (units ( unknown) date) unknown) (unknown) (no (unknown) (unknown) Pulse Oximetry 100 (units (unknown) date) 06/07/22 02:06 unknown) (unknown) (no (unknown) (unknown) Pulse Oximetry 100 (units (unknown) date) unknown) (unknown) (no (unknown) (unknown) Pulse Rate 72 (units ( unknown) date) 06/07/22 02:06 unknown) (unknown) (no (unknown) (unknown) Pulse Rate 72 (units ( unknown) date) unknown) (unknown) (no (unknown) (unknown) RBC 4.25 (4.0-5.2) (units (unknown) date) X106/uL unknown) (unknown) (no (unknown) (unknown) RDW 14.0 (units (unkno wn) date) (11.6-14.8) % unknown) (unknown) (no (unknown) (unknown) RESPIRATORY: Clear (units (unknown) date) to auscultation. unknown) Breath sounds equal bilaterally. No wheezes, (unknown) (no (unknown) (unknown) RESPIRATORY: (units (u nknown) date) Denies dyspnea, unknown) cough, wheezing, hemoptysis, sputum. (unknown) (no (unknown) (unknown) Referrals: (units (unk nown) date) unknown) (unknown) (no (unknown) (unknown) Related Data (units (u nknown) date) unknown) (unknown) (no (unknown) (unknown) Respiratory Rate (units (unknown) date) 16 06/07/22 02:06 unknown) (unknown) (no (unknown) (unknown) Respiratory Rate (units (unknown) date) 16 unknown) (unknown) (no (unknown) (unknown) Result diagrams: (units (unknown) date) unknown) (unknown) (no (unknown) (unknown) Review of Systems (units (unknown) date) unknown) (unknown) (no (unknown) (unknown) S/P ACL (units (unkno wn) date) reconstruction unknown) (-06/08/21) (unknown) (no (unknown) (unknown) SKIN: Denies rash, (units (unknown) date) skin lesions, or unknown) other (unknown) (no (unknown) (unknown) SKIN: No rash or (units (unknown) date) erythema of visible unknown) areas (unknown) (no (unknown) (unknown) Signed By: (units (unk nown) date) unknown) (unknown) (no (unknown) (unknown) Smoking Status: (units (unknown) date) Current some day unknown) smoker (unknown) (no (unknown) (unknown) Social History (units (unknown) date) (Reviewed 06/07/22 unknown) @ 05:36 by Tremaine Rae DO) (unknown) (no (unknown) (unknown) Sodium 138 (units (unk nown) date) (137-145) mmol/L unknown) (unknown) (no (unknown) (unknown) Source: patient (units (unknown) date) unknown) (unknown) (no (unknown) (unknown) Stated Complaint: (units (unknown) date) ABD PAIN unknown) (unknown) (no (unknown) (unknown) Stop: 06/07/22 (units (unknown) date) 02:42 unknown) (unknown) (no (unknown) (unknown) Stop: 06/07/22 (units (unknown) date) 03:44 unknown) (unknown) (no (unknown) (unknown) Substance Use (units ( unknown) date) Type: does not use unknown) (unknown) (no (unknown) (unknown) Surgical History (units (unknown) date) (Reviewed 06/07/22 unknown) @ 05:36 by Tremaine Rae DO) (unknown) (no (unknown) (unknown) TOA (tubo-ovarian (units (unknown) date) abscess) unknown) (-06/28/21) (unknown) (no (unknown) (unknown) Temperature 98.4 F (units (unknown) date) 06/07/22 02:06 unknown) (unknown) (no (unknown) (unknown) Temperature 98.4 F (units (unknown) date) unknown) (unknown) (no (unknown) (unknown) Time Seen by (units (u nknown) date) Provider: 06/07/22 unknown) 02:07 (unknown) (no (unknown) (unknown) Total Bilirubin (units (unknown) date) 0.4 (0.2-1.3) mg/dL unknown) (unknown) (no (unknown) (unknown) Total Protein 6.6 (units (unknown) date) (6.3-8.2) g/dL unknown) (unknown) (no (unknown) (unknown) US pelvic complete (units (unknown) date) Stat unknown) (unknown) (no (unknown) (unknown) Urine Dip (units (unkn own) date) unknown) (unknown) (no (unknown) (unknown) Urine Specific (units (unknown) date) [place] 1.025 unknown) (unknown) (no (unknown) (unknown) Vital Signs - 8 hr (units (unknown) date) unknown) (unknown) (no (unknown) (unknown) Vital Signs (units (un known) date) unknown) (unknown) (no (unknown) (unknown) Vital signs: (units (u nknown) date) unknown) (unknown) (no (unknown) (unknown) WBC 8.5 (4.5-11.0) (units (unknown) date) X103/uL unknown) (unknown) (no (unknown) (unknown) [Embedded Image (units (unknown) date) Not Available] unknown) (unknown) (no (unknown) (unknown) abscess presents (units (unknown) date) with significant unknown) other and a chief complaint of severe left (unknown) (no (unknown) (unknown) alcohol intake (units (unknown) date) frequency: unknown) holidays/special occasions only (unknown) (no (unknown) (unknown) alcohol intake: (units (unknown) date) current unknown) (unknown) (no (unknown) (unknown) clindamycin HCl (units (unknown) date) 150 mg capsule 150 unknown) mg PO DAILY #30 caps 03/17/22 (unknown) (no (unknown) (unknown) clindamycin HCl (units (unknown) date) 150 mg capsule unknown) (unknown) (no (unknown) (unknown) denies any (units (unk nown) date) vomiting. She is unknown) had no change in her bowel habits. She denies (unknown) (no (unknown) (unknown) dizziness. (units (unk nown) date) unknown) (unknown) (no (unknown) (unknown) doxycycline (units (un known) date) AdvReac unknown) Intermediate vomitt Verified 04/19/22 07:57 (unknown) (no (unknown) (unknown) dysuria, frequency (units (unknown) date) or urgency. unknown) (unknown) (no (unknown) (unknown) for persistent (units (unknown) date) right lower unknown) quadrant pain in the aftermath of a tubo-ovarian (unknown) (no (unknown) (unknown) household members: (units (unknown) date) friend(s) unknown) (unknown) (no (unknown) (unknown) hydromorphone 4 mg (units (unknown) date) tablet 4 mg PO unknown) Q4-6H PRN pain #20 tabs 04/08/22 (unknown) (no (unknown) (unknown) hydromorphone (units ( unknown) date) [Dilaudid] 4 mg unknown) tablet (unknown) (no (unknown) (unknown) icterus. No (units (un known) date) injection or unknown) drainage. (unknown) (no (unknown) (unknown) lower quadrant (units (unknown) date) pain over the past unknown) few days. The pain is severe and seems to be (unknown) (no (unknown) (unknown) mild distress. (units (unknown) date) unknown) (unknown) (no (unknown) (unknown) oxycodone 5 mg (units (unknown) date) tablet 5 mg PO Q4H unknown) PRN pain #20 tabs 04/07/22 (unknown) (no (unknown) (unknown) oxycodone 5 mg (units (unknown) date) tablet unknown) (unknown) (no (unknown) (unknown) radiates to her (units (unknown) date) back. She denies unknown) any fever chills. She is been nauseated but (unknown) (no (unknown) (unknown) rales, or rhonchi. (units (unknown) date) unknown) (unknown) (no (unknown) (unknown) seizures, (units (unkn own) date) incoordination. unknown) (unknown) (no (unknown) (unknown) tobacco type: (units ( unknown) date) vaping unknown) (unknown) (no (unknown) (unknown) tonsillar (units (unkn own) date) hypertrophy or unknown) exudate. Airway patent. (unknown) (no (unknown) (unknown) worse with motion (units (unknown) date) and improves with unknown) rest. She does at times feel like the pain Result panel 551 (unknown) (no (unknown) (unknown) (no value) (units (unk nown) date) unknown) (unknown) (no (unknown) (unknown) (Dilaudid) (units (unk nown) date) unknown) (unknown) (no (unknown) (unknown) [id number] (units (unkno wn) date) unknown) (unknown) (no (unknown) (unknown) 02:06 (units (unkno wn) date) unknown) (unknown) (no (unknown) (unknown) 02:55 02:55 (units (un known) date) unknown) (unknown) (no (unknown) (unknown) 06/07/22 02:41 (units (unknown) date) unknown) (unknown) (no (unknown) (unknown) 06/07/22 02:55 (units (unknown) date) unknown) (unknown) (no (unknown) (unknown) 06/07/22 03:01 (units (unknown) date) unknown) (unknown) (no (unknown) (unknown) 06/07/22 04:52 (units (unknown) date) unknown) (unknown) (no (unknown) (unknown) 06/07/22 06/07/22 (units (unknown) date) Range/Units unknown) (unknown) (no (unknown) (unknown) 06/07/22 (units (unkno wn) date) unknown) (unknown) (no (unknown) (unknown) 12 point review of (units (unknown) date) systems is negative unknown) except for those stated above (unknown) (no (unknown) (unknown) 150 mg PO DAILY (units (unknown) date) Qty: 30 0RF unknown) (unknown) (no (unknown) (unknown) 21-year-old female (units (unknown) date) nonsmoker with unknown) history of a relatively recent pelvic surgery (unknown) (no (unknown) (unknown) 4 mg PO Q4-6H PRN (units (unknown) date) (Reason: pain) Qty: unknown) 20 0RF (unknown) (no (unknown) (unknown) 5 mg PO Q4H PRN (units (unknown) date) (Reason: pain) Qty: unknown) 20 0RF (unknown) (no (unknown) (unknown) ALT 13 (<35) IU/L (units (unknown) date) unknown) (unknown) (no (unknown) (unknown) AST 16 (14-36) (units (unknown) date) IU/L unknown) (unknown) (no (unknown) (unknown) [place] (-2016) (units (u nknown) date) unknown) (unknown) (no (unknown) (unknown) Age/Sex: 21 / F (units (unknown) date) unknown) (unknown) (no (unknown) (unknown) Albumin 4.0 (units (un known) date) (3.5-5.0) g/dL unknown) (unknown) (no (unknown) (unknown) Albumin/Globulin (units (unknown) date) Ratio 1.5 (1.0-2.8) unknown) (unknown) (no (unknown) (unknown) Alcohol type: wine (units (unknown) date) unknown) (unknown) (no (unknown) (unknown) Alkaline (units (unkno wn) date) Phosphatase 81 unknown) (38-126) U/L (unknown) (no (unknown) (unknown) Allergies (units (unkn own) date) unknown) (unknown) (no (unknown) (unknown) Allergy/AdvReac (units (unknown) date) Type Severity unknown) Reaction Status Date / Time (unknown) (no (unknown) (unknown) Anesthesia (units (unk nown) date) unknown) (unknown) (no (unknown) (unknown) BACK: Nontender (units (unknown) date) without deformity unknown) or crepitance. No flank tenderness. (unknown) (no (unknown) (unknown) BUN 11 (7-17) (units ( unknown) date) mg/dL unknown) (unknown) (no (unknown) (unknown) BUN/Creatinine (units (unknown) date) Ratio 14.7 (6-22) unknown) (unknown) (no (unknown) (unknown) Baso # (Auto) 100 (units (unknown) date) (0-100) /uL unknown) (unknown) (no (unknown) (unknown) Baso % (Auto) 1.0 (units (unknown) date) (0-2) % unknown) (unknown) (no (unknown) (unknown) Bedside Urine (units ( unknown) date) Bilirubin - unknown) Negative (unknown) (no (unknown) (unknown) Bedside Urine (units ( unknown) date) Glucose Negative unknown) (unknown) (no (unknown) (unknown) Bedside Urine (units ( unknown) date) Ketone - Negative unknown) (unknown) (no (unknown) (unknown) Bedside Urine (units ( unknown) date) Leukocytes - unknown) Negative (unknown) (no (unknown) (unknown) Bedside Urine (units ( unknown) date) Nitrite - Negative unknown) (unknown) (no (unknown) (unknown) Bedside Urine (units ( unknown) date) Occult Blood - unknown) Negative (unknown) (no (unknown) (unknown) Bedside Urine (units ( unknown) date) Protein - Negative unknown) (unknown) (no (unknown) (unknown) Bedside Urine (units ( unknown) date) Urobilinogen - unknown) Negative (unknown) (no (unknown) (unknown) Bedside Urine pH (units (unknown) date) 6.0 unknown) (unknown) (no (unknown) (unknown) Blood Pressure (units (unknown) date) 112/71 06/07/22 unknown) 02:06 (unknown) (no (unknown) (unknown) Blood Pressure (units (unknown) date) 112/71 unknown) (unknown) (no (unknown) (unknown) CARDIOVASCULAR: (units (unknown) date) Denies chest pain, unknown) palpitations, orthopnea, edema, (unknown) (no (unknown) (unknown) CARDIOVASCULAR: (units (unknown) date) Regular rate and unknown) rhythm without murmurs, gallops, or rubs. (unknown) (no (unknown) (unknown) CT abdomen pelvis (units (unknown) date) w con Stat unknown) (unknown) (no (unknown) (unknown) Calcium 8.8 (units (un known) date) (8.4-10.2) mg/dL unknown) (unknown) (no (unknown) (unknown) Carbon Dioxide 26 (units (unknown) date) (22-32) mmol/L unknown) (unknown) (no (unknown) (unknown) Chief Complaint: (units (unknown) date) Abdominal Pain unknown) (unknown) (no (unknown) (unknown) Chlamydia (units (unkn own) date) infection (-2020) unknown) (unknown) (no (unknown) (unknown) Chloride 106 (units (u nknown) date) (98-107) mmol/L unknown) (unknown) (no (unknown) (unknown) Complete Blood (units (unknown) date) Count AUTO DIFF unknown) Stat (unknown) (no (unknown) (unknown) Comprehensive (units ( unknown) date) Metabolic Panel unknown) Stat (unknown) (no (unknown) (unknown) Course (units (unkno wn) date) unknown) (unknown) (no (unknown) (unknown) Creatinine 0.75 (units (unknown) date) (0.52-1.04) mg/dL unknown) (unknown) (no (unknown) (unknown) : 2000 (units (unknown) date) Acct:[id number] unknown) (unknown) (no (unknown) (unknown) Date of Service: (units (unknown) date) 06/07/22 unknown) (unknown) (no (unknown) (unknown) Departure (units (unkn own) date) unknown) (unknown) (no (unknown) (unknown) Discharge Plan (units (unknown) date) unknown) (unknown) (no (unknown) (unknown) Discontinued (units (u nknown) date) Medications unknown) (unknown) (no (unknown) (unknown) Documented By: DKB (units (unknown) date) unknown) (unknown) (no (unknown) (unknown) ED Orders (units (unkn own) date) unknown) (unknown) (no (unknown) (unknown) EKG-12 Lead Stat (units (unknown) date) unknown) (unknown) (no (unknown) (unknown) ENT: Nose without (units (unknown) date) bleeding, purulent unknown) drainage. Throat without erythema, (unknown) (no (unknown) (unknown) ER Physician: (units ( unknown) date) Tremaine Rae D.O. unknown) (unknown) (no (unknown) (unknown) EXTREMITIES: No (units (unknown) date) edema or joint unknown) tenderness. (unknown) (no (unknown) (unknown) EYES: Pupils equal (units (unknown) date) round and reactive. unknown) Extraocular motions intact. No scleral (unknown) (no (unknown) (unknown) Emergency Report (units (unknown) date) unknown) (unknown) (no (unknown) (unknown) Endometriosis (units ( unknown) date) (-2020) unknown) (unknown) (no (unknown) (unknown) Eos # (Auto) 300 (units (unknown) date) (0-450) /uL unknown) (unknown) (no (unknown) (unknown) Eos % (Auto) 3.9 (units (unknown) date) (2-4) % unknown) (unknown) (no (unknown) (unknown) Esterase (units (unkno wn) date) unknown) (unknown) (no (unknown) (unknown) Estimated GFR > 60 (units (unknown) date) (>60) mL/min unknown) (unknown) (no (unknown) (unknown) Exam Narrative: (units (unknown) date) unknown) (unknown) (no (unknown) (unknown) Exam (units (unkno wn) date) unknown) (unknown) (no (unknown) (unknown) GASTROINTESTINAL (units (unknown) date) see HPI unknown) (unknown) (no (unknown) (unknown) GASTROINTESTINAL: (units (unknown) date) Abdomen soft, unknown) non-tender, nondistended. (unknown) (no (unknown) (unknown) GENERAL: Denies (units (unknown) date) chills, fatigue, unknown) malaise, fever, sweats. (unknown) (no (unknown) (unknown) GENERAL: [21] year (units (unknown) date) old patient appears unknown) stated age. Well-developed patient, in (unknown) (no (unknown) (unknown) : D see HPI (units ( unknown) date) unknown) (unknown) (no (unknown) (unknown) General (units (unkno wn) date) unknown) (unknown) (no (unknown) (unknown) Globulin 2.6 (units (u nknown) date) (1.7-4.1) g/dL unknown) (unknown) (no (unknown) (unknown) Glucose 99 (units (unk nown) date) (70-100) mg/dL unknown) (unknown) (no (unknown) (unknown) HEAD: Atraumatic. (units (unknown) date) Normocephalic. unknown) (unknown) (no (unknown) (unknown) HEENT: Denies (units ( unknown) date) sinus pain, ear unknown) pain, sore throat, difficulty swallowing, (unknown) (no (unknown) (unknown) HPI - Abdominal (units (unknown) date) Pain unknown) (unknown) (no (unknown) (unknown) HPI narrative: (units (unknown) date) unknown) (unknown) (no (unknown) (unknown) Hct 36.6 (36-46) % (units (unknown) date) unknown) (unknown) (no (unknown) (unknown) Heavy menstrual (units (unknown) date) period (-2019) unknown) (unknown) (no (unknown) (unknown) Hgb 12.5 (units (unkno wn) date) (12.0-16.0) g/dL unknown) (unknown) (no (unknown) (unknown) History of Present (units (unknown) date) Illness unknown) (unknown) (no (unknown) (unknown) Initial Vital (units ( unknown) date) Signs unknown) (unknown) (no (unknown) (unknown) Initial Vital (units ( unknown) date) Signs: unknown) (unknown) (no (unknown) (unknown) Irregular (units (unkn own) date) menstrual cycle unknown) () (unknown) (no (unknown) (unknown) [facility] (units (unknown) date) [address] unknown) [place] [id number] (unknown) (no (unknown) (unknown) Agatha Abrams, (units (unknown) date) 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 [Primary Care unknown) Provider] (unknown) (no (unknown) (unknown) Ketorolac (units (unkn own) date) Tromethamine unknown) (Ketorolac 30 Mg/Ml Vial) 15 mg IV NOW ONE (unknown) (no (unknown) (unknown) Lab Data (units (unkno wn) date) unknown) (unknown) (no (unknown) (unknown) Lab Results (units (un known) date) unknown) (unknown) (no (unknown) (unknown) Labs: (units (unkno wn) date) unknown) (unknown) (no (unknown) (unknown) Last Admin: (units (un known) date) 06/07/22 04:13 unknown) Dose: Not Given (unknown) (no (unknown) (unknown) Last Admin: (units (un known) date) 06/07/22 04:20 unknown) Dose: 15 mg (unknown) (no (unknown) (unknown) Lipase 113 (units (unk nown) date) (23-300) U/L unknown) (unknown) (no (unknown) (unknown) Lipase Stat (units (un known) date) unknown) (unknown) (no (unknown) (unknown) Lymph # (Auto) (units (unknown) date) 2700 (1689-4027) unknown) /uL (unknown) (no (unknown) (unknown) Lymph % (Auto) (units (unknown) date) 32.4 (25-40) % unknown) (unknown) (no (unknown) (unknown) Lymphangioma (units (u nknown) date) unknown) (unknown) (no (unknown) (unknown) MCH 29.3 (26-34) (units (unknown) date) PG unknown) (unknown) (no (unknown) (unknown) MCHC 34.0 (30-36) (units (unknown) date) % unknown) (unknown) (no (unknown) (unknown) MCV 86.2 (80-100) (units (unknown) date) fL unknown) (unknown) (no (unknown) (unknown) MDM - Abdominal (units (unknown) date) Pain unknown) (unknown) (no (unknown) (unknown) MUSCULOSKELETAL: (units (unknown) date) denies weakness, unknown) joint pain, or bony pain (unknown) (no (unknown) (unknown) Medical History (units (unknown) date) (Reviewed 06/07/22 unknown) @ 05:36 by Tremaine Rae DO) (unknown) (no (unknown) (unknown) Medication (units (unk nown) date) Instructions unknown) Recorded (unknown) (no (unknown) (unknown) Mode of arrival: (units (unknown) date) Ambulatory unknown) (unknown) (no (unknown) (unknown) [place] # (Auto) 700 (units (unknown) date) (0-900) /uL unknown) (unknown) (no (unknown) (unknown) [place] % (Auto) 7.9 (units (unknown) date) (3-14) % unknown) (unknown) (no (unknown) (unknown) NECK: Trachea (units ( unknown) date) midline. Non tender unknown) (unknown) (no (unknown) (unknown) NEURO: AOx3. (units (u nknown) date) unknown) (unknown) (no (unknown) (unknown) NEUROLOGIC: Denies (units (unknown) date) weakness, headache, unknown) numbness, change in speech, confusion, (unknown) (no (unknown) (unknown) Narrative (units (unkn own) date) unknown) (unknown) (no (unknown) (unknown) Narrative: (units (unk nown) date) unknown) (unknown) (no (unknown) (unknown) Neut # (Auto) 4700 (units (unknown) date) (0400-3978) /uL unknown) (unknown) (no (unknown) (unknown) Neut % (Auto) 54.8 (units (unknown) date) (50-75) % unknown) (unknown) (no (unknown) (unknown) No Action (units (unkn own) date) unknown) (unknown) (no (unknown) (unknown) Ondansetron HCl (units (unknown) date) (Ondansetron 4 Mg unknown) Odt) 4 mg PO NOW ONE (unknown) (no (unknown) (unknown) Ondansetron HCl (units (unknown) date) (Ondansetron 4 Mg/2 unknown) Ml Inj) 4 mg IV NOW ONE (unknown) (no (unknown) (unknown) Opioids - Morphine (units (unknown) date) Analogues Allergy unknown) Intermediate rash Verified 04/19/22 07:57 (unknown) (no (unknown) (unknown) Ordered: (units (unkno wn) date) unknown) (unknown) (no (unknown) (unknown) Orders (units (unkno wn) date) unknown) (unknown) (no (unknown) (unknown) Ovarian cyst (units (u nknown) date) unknown) (unknown) (no (unknown) (unknown) Oxygen Delivery (units (unknown) date) Method 06/07/22 unknown) 02:06 (unknown) (no (unknown) (unknown) Oxygen Delivery (units (unknown) date) Method Room Air unknown) (unknown) (no (unknown) (unknown) PSYCHIATRIC: No (units (unknown) date) concerning unknown) psychosocial issues. (unknown) (no (unknown) (unknown) Painful menstrual (units (unknown) date) periods (-2020) unknown) (unknown) (no (unknown) (unknown) Patient History (units (unknown) date) unknown) (unknown) (no (unknown) (unknown) Patient: (units (unkno wn) date) Ade Vidales unknown) MR#: [id number] (unknown) (no (unknown) (unknown) Plt Count 359 (units ( unknown) date) (150-400) X103/uL unknown) (unknown) (no (unknown) (unknown) Point of Care (units ( unknown) date) Testing unknown) (unknown) (no (unknown) (unknown) Point of care (units ( unknown) date) testing: unknown) (unknown) (no (unknown) (unknown) Potassium 3.6 (units ( unknown) date) (3.4-5.1) mmol/L unknown) (unknown) (no (unknown) (unknown) Test (units (unknown) date) Results Negative unknown) (unknown) (no (unknown) (unknown) Prescriptions: (units (unknown) date) unknown) (unknown) (no (unknown) (unknown) Previous Rx's (units ( unknown) date) unknown) (unknown) (no (unknown) (unknown) Pulse Oximetry 100 (units (unknown) date) 06/07/22 02:06 unknown) (unknown) (no (unknown) (unknown) Pulse Oximetry 100 (units (unknown) date) unknown) (unknown) (no (unknown) (unknown) Pulse Rate 72 (units ( unknown) date) 06/07/22 02:06 unknown) (unknown) (no (unknown) (unknown) Pulse Rate 72 (units ( unknown) date) unknown) (unknown) (no (unknown) (unknown) RBC 4.25 (4.0-5.2) (units (unknown) date) X106/uL unknown) (unknown) (no (unknown) (unknown) RDW 14.0 (units (unkno wn) date) (11.6-14.8) % unknown) (unknown) (no (unknown) (unknown) RESPIRATORY: Clear (units (unknown) date) to auscultation. unknown) Breath sounds equal bilaterally. No wheezes, (unknown) (no (unknown) (unknown) RESPIRATORY: (units (u nknown) date) Denies dyspnea, unknown) cough, wheezing, hemoptysis, sputum. (unknown) (no (unknown) (unknown) Referrals: (units (unk nown) date) unknown) (unknown) (no (unknown) (unknown) Related Data (units (u nknown) date) unknown) (unknown) (no (unknown) (unknown) Respiratory Rate (units (unknown) date) 16 06/07/22 02:06 unknown) (unknown) (no (unknown) (unknown) Respiratory Rate (units (unknown) date) 16 unknown) (unknown) (no (unknown) (unknown) Result diagrams: (units (unknown) date) unknown) (unknown) (no (unknown) (unknown) Review of Systems (units (unknown) date) unknown) (unknown) (no (unknown) (unknown) S/P ACL (units (unkno wn) date) reconstruction unknown) (-06/08/21) (unknown) (no (unknown) (unknown) SKIN: Denies rash, (units (unknown) date) skin lesions, or unknown) other (unknown) (no (unknown) (unknown) SKIN: No rash or (units (unknown) date) erythema of visible unknown) areas (unknown) (no (unknown) (unknown) Signed By: (units (unk nown) date) unknown) (unknown) (no (unknown) (unknown) Smoking Status: (units (unknown) date) Current some day unknown) smoker (unknown) (no (unknown) (unknown) Social History (units (unknown) date) (Reviewed 06/07/22 unknown) @ 05:36 by Tremaine Rae DO) (unknown) (no (unknown) (unknown) Sodium 138 (units (unk nown) date) (137-145) mmol/L unknown) (unknown) (no (unknown) (unknown) Source: patient (units (unknown) date) unknown) (unknown) (no (unknown) (unknown) Stated Complaint: (units (unknown) date) ABD PAIN unknown) (unknown) (no (unknown) (unknown) Stop: 06/07/22 (units (unknown) date) 02:42 unknown) (unknown) (no (unknown) (unknown) Stop: 06/07/22 (units (unknown) date) 03:44 unknown) (unknown) (no (unknown) (unknown) Substance Use (units ( unknown) date) Type: does not use unknown) (unknown) (no (unknown) (unknown) Surgical History (units (unknown) date) (Reviewed 06/07/22 unknown) @ 05:36 by Tremaine Rae DO) (unknown) (no (unknown) (unknown) TOA (tubo-ovarian (units (unknown) date) abscess) unknown) (-06/28/21) (unknown) (no (unknown) (unknown) Temperature 98.4 F (units (unknown) date) 06/07/22 02:06 unknown) (unknown) (no (unknown) (unknown) Temperature 98.4 F (units (unknown) date) unknown) (unknown) (no (unknown) (unknown) Time Seen by (units (u nknown) date) Provider: 06/07/22 unknown) 02:07 (unknown) (no (unknown) (unknown) Total Bilirubin (units (unknown) date) 0.4 (0.2-1.3) mg/dL unknown) (unknown) (no (unknown) (unknown) Total Protein 6.6 (units (unknown) date) (6.3-8.2) g/dL unknown) (unknown) (no (unknown) (unknown) US pelvic complete (units (unknown) date) Stat unknown) (unknown) (no (unknown) (unknown) Urine Dip (units (unkn own) date) unknown) (unknown) (no (unknown) (unknown) Urine Specific (units (unknown) date) [place] 1.025 unknown) (unknown) (no (unknown) (unknown) Vital Signs - 8 hr (units (unknown) date) unknown) (unknown) (no (unknown) (unknown) Vital Signs (units (un known) date) unknown) (unknown) (no (unknown) (unknown) Vital signs: (units (u nknown) date) unknown) (unknown) (no (unknown) (unknown) WBC 8.5 (4.5-11.0) (units (unknown) date) X103/uL unknown) (unknown) (no (unknown) (unknown) [Embedded Image (units (unknown) date) Not Available] unknown) (unknown) (no (unknown) (unknown) abscess presents (units (unknown) date) with significant unknown) other and a chief complaint of severe left (unknown) (no (unknown) (unknown) alcohol intake (units (unknown) date) frequency: unknown) holidays/special occasions only (unknown) (no (unknown) (unknown) alcohol intake: (units (unknown) date) current unknown) (unknown) (no (unknown) (unknown) clindamycin HCl (units (unknown) date) 150 mg capsule 150 unknown) mg PO DAILY #30 caps 03/17/22 (unknown) (no (unknown) (unknown) clindamycin HCl (units (unknown) date) 150 mg capsule unknown) (unknown) (no (unknown) (unknown) denies any (units (unk nown) date) vomiting. She is unknown) had no change in her bowel habits. She denies (unknown) (no (unknown) (unknown) dizziness. (units (unk nown) date) unknown) (unknown) (no (unknown) (unknown) doxycycline (units (un known) date) AdvReac unknown) Intermediate vomitt Verified 04/19/22 07:57 (unknown) (no (unknown) (unknown) dysuria, frequency (units (unknown) date) or urgency. unknown) (unknown) (no (unknown) (unknown) for persistent (units (unknown) date) right lower unknown) quadrant pain in the aftermath of a tubo-ovarian (unknown) (no (unknown) (unknown) household members: (units (unknown) date) friend(s) unknown) (unknown) (no (unknown) (unknown) hydromorphone 4 mg (units (unknown) date) tablet 4 mg PO unknown) Q4-6H PRN pain #20 tabs 04/08/22 (unknown) (no (unknown) (unknown) hydromorphone (units ( unknown) date) [Dilaudid] 4 mg unknown) tablet (unknown) (no (unknown) (unknown) icterus. No (units (un known) date) injection or unknown) drainage. (unknown) (no (unknown) (unknown) lower quadrant (units (unknown) date) pain over the past unknown) few days. The pain is severe and seems to be (unknown) (no (unknown) (unknown) mild distress. (units (unknown) date) unknown) (unknown) (no (unknown) (unknown) oxycodone 5 mg (units (unknown) date) tablet 5 mg PO Q4H unknown) PRN pain #20 tabs 04/07/22 (unknown) (no (unknown) (unknown) oxycodone 5 mg (units (unknown) date) tablet unknown) (unknown) (no (unknown) (unknown) radiates to her (units (unknown) date) back. She denies unknown) any fever chills. She is been nauseated but (unknown) (no (unknown) (unknown) rales, or rhonchi. (units (unknown) date) unknown) (unknown) (no (unknown) (unknown) seizures, (units (unkn own) date) incoordination. unknown) (unknown) (no (unknown) (unknown) tobacco type: (units ( unknown) date) vaping unknown) (unknown) (no (unknown) (unknown) tonsillar (units (unkn own) date) hypertrophy or unknown) exudate. Airway patent. (unknown) (no (unknown) (unknown) worse with motion (units (unknown) date) and improves with unknown) rest. She does at times feel like the pain Result panel 552 (unknown) (no (unknown) (unknown) (no value) (units (unk nown) date) unknown) (unknown) (no (unknown) (unknown) <Electronically (units (unknown) date) signed by Tremaine Rae D.O.> (unknown) (no (unknown) (unknown) (Dilaudid) (units (unk nown) date) unknown) (unknown) (no (unknown) (unknown) *Please continue (units (unknown) date) to take your unknown) regular medications as directed. (unknown) (no (unknown) (unknown) *Please follow up (units (unknown) date) with your primary unknown) group worker in 2-3 days, call for an (unknown) (no (unknown) (unknown) *Return to (units (unk nown) date) Emergency unknown) Department if you should have any new, worsening or (unknown) (no (unknown) (unknown) *What to do: (units (u nknown) date) unknown) (unknown) (no (unknown) (unknown) *You have been (units (unknown) date) diagnosed with unknown) [left hemorrhagic ovarian cyst ] (unknown) (no (unknown) (unknown) [id number] (units (unkno wn) date) unknown) (unknown) (no (unknown) (unknown) 02:06 (units (unkno wn) date) unknown) (unknown) (no (unknown) (unknown) 02:55 02:55 (units (un known) date) unknown) (unknown) (no (unknown) (unknown) 1 tab PO Q4-6H PRN (units (unknown) date) (Reason: pain) Qty: unknown) 10 0RF (unknown) (no (unknown) (unknown) 10 mg PO Q6H PRN (units (unknown) date) (Reason: pain) Qty: unknown) 14 0RF (unknown) (no (unknown) (unknown) 06/07/22 02:55 (units (unknown) date) unknown) (unknown) (no (unknown) (unknown) 06/07/22 06/07/22 (units (unknown) date) Range/Units unknown) (unknown) (no (unknown) (unknown) 06/07/22 (units (unkno wn) date) unknown) (unknown) (no (unknown) (unknown) 06/08/22 0244 (units ( unknown) date) unknown) (unknown) (no (unknown) (unknown) 12 point review of (units (unknown) date) systems is negative unknown) except for those stated above (unknown) (no (unknown) (unknown) 150 mg PO DAILY (units (unknown) date) Qty: 30 0RF unknown) (unknown) (no (unknown) (unknown) 21-year-old female (units (unknown) date) nonsmoker with unknown) history of a relatively recent pelvic surgery (unknown) (no (unknown) (unknown) 4 mg PO Q4-6H PRN (units (unknown) date) (Reason: pain) Qty: unknown) 20 0RF (unknown) (no (unknown) (unknown) 4 mg PO TID-QID (units (unknown) date) PRN (Reason: nausea unknown) and vomiting) Qty: 10 0RF (unknown) (no (unknown) (unknown) 5 mg PO Q4H PRN (units (unknown) date) (Reason: pain) Qty: unknown) 20 0RF (unknown) (no (unknown) (unknown) ALT 13 (<35) IU/L (units (unknown) date) unknown) (unknown) (no (unknown) (unknown) AST 16 (14-36) (units (unknown) date) IU/L unknown) (unknown) (no (unknown) (unknown) Acne (-2016) (units (u nknown) date) unknown) (unknown) (no (unknown) (unknown) Activity (units (unkno wn) date) Restrictions/Additi unknown) onal Instructions: (unknown) (no (unknown) (unknown) Age/Sex: 21 / F (units (unknown) date) unknown) (unknown) (no (unknown) (unknown) Albumin 4.0 (units (un known) date) (3.5-5.0) g/dL unknown) (unknown) (no (unknown) (unknown) Albumin/Globulin (units (unknown) date) Ratio 1.5 (1.0-2.8) unknown) (unknown) (no (unknown) (unknown) Alcohol type: wine (units (unknown) date) unknown) (unknown) (no (unknown) (unknown) Alkaline (units (unkno wn) date) Phosphatase 81 unknown) (38-126) U/L (unknown) (no (unknown) (unknown) Allergies (units (unkn own) date) unknown) (unknown) (no (unknown) (unknown) Allergy/AdvReac (units (unknown) date) Type Severity unknown) Reaction Status Date / Time (unknown) (no (unknown) (unknown) Anesthesia (units (unk nown) date) unknown) (unknown) (no (unknown) (unknown) BACK: Nontender (units (unknown) date) without deformity unknown) or crepitance. No flank tenderness. (unknown) (no (unknown) (unknown) BUN 11 (7-17) (units ( unknown) date) mg/dL unknown) (unknown) (no (unknown) (unknown) BUN/Creatinine (units (unknown) date) Ratio 14.7 (6-22) unknown) (unknown) (no (unknown) (unknown) Baso # (Auto) 100 (units (unknown) date) (0-100) /uL unknown) (unknown) (no (unknown) (unknown) Baso % (Auto) 1.0 (units (unknown) date) (0-2) % unknown) (unknown) (no (unknown) (unknown) Bedside Urine (units ( unknown) date) Bilirubin - unknown) Negative (unknown) (no (unknown) (unknown) Bedside Urine (units ( unknown) date) Glucose Negative unknown) (unknown) (no (unknown) (unknown) Bedside Urine (units ( unknown) date) Ketone - Negative unknown) (unknown) (no (unknown) (unknown) Bedside Urine (units ( unknown) date) Leukocytes - unknown) Negative (unknown) (no (unknown) (unknown) Bedside Urine (units ( unknown) date) Nitrite - Negative unknown) (unknown) (no (unknown) (unknown) Bedside Urine (units ( unknown) date) Occult Blood - unknown) Negative (unknown) (no (unknown) (unknown) Bedside Urine (units ( unknown) date) Protein - Negative unknown) (unknown) (no (unknown) (unknown) Bedside Urine (units ( unknown) date) Urobilinogen - unknown) Negative (unknown) (no (unknown) (unknown) Bedside Urine pH (units (unknown) date) 6.0 unknown) (unknown) (no (unknown) (unknown) Blood Pressure (units (unknown) date) 06/07/22 unknown) 02:06 (unknown) (no (unknown) (unknown) Blood Pressure (units (unknown) date) unknown) (unknown) (no (unknown) (unknown) CARDIOVASCULAR: (units (unknown) date) Denies chest pain, unknown) palpitations, orthopnea, edema, (unknown) (no (unknown) (unknown) CARDIOVASCULAR: (units (unknown) date) Regular rate and unknown) rhythm without murmurs, gallops, or rubs. (unknown) (no (unknown) (unknown) Calcium 8.8 (units (un known) date) (8.4-10.2) mg/dL unknown) (unknown) (no (unknown) (unknown) Carbon Dioxide 26 (units (unknown) date) (22-32) mmol/L unknown) (unknown) (no (unknown) (unknown) Chief Complaint: (units (unknown) date) Abdominal Pain unknown) (unknown) (no (unknown) (unknown) Chlamydia (units (unkn own) date) infection (-2020) unknown) (unknown) (no (unknown) (unknown) Chloride 106 (units (u nknown) date) (98-107) mmol/L unknown) (unknown) (no (unknown) (unknown) Clinical (units (unkno wn) date) Impression: unknown) (unknown) (no (unknown) (unknown) Course (units (unkno wn) date) unknown) (unknown) (no (unknown) (unknown) Creatinine 0.75 (units (unknown) date) (0.52-1.04) mg/dL unknown) (unknown) (no (unknown) (unknown) : 2000 (units (unknown) date) Acct:[id number] unknown) (unknown) (no (unknown) (unknown) Date of Service: (units (unknown) date) 06/07/22 unknown) (unknown) (no (unknown) (unknown) Departure (units (unkn own) date) unknown) (unknown) (no (unknown) (unknown) Discharge Plan (units (unknown) date) unknown) (unknown) (no (unknown) (unknown) Discontinued (units (u nknown) date) Medications unknown) (unknown) (no (unknown) (unknown) Documented By: DKB (units (unknown) date) unknown) (unknown) (no (unknown) (unknown) Documented By: GC (units (unknown) date) unknown) (unknown) (no (unknown) (unknown) ENT: Nose without (units (unknown) date) bleeding, purulent unknown) drainage. Throat without erythema, (unknown) (no (unknown) (unknown) ER Physician: (units ( unknown) date) Tremaine Rae D.O. unknown) (unknown) (no (unknown) (unknown) EXTREMITIES: No (units (unknown) date) edema or joint unknown) tenderness. (unknown) (no (unknown) (unknown) EYES: Pupils equal (units (unknown) date) round and reactive. unknown) Extraocular motions intact. No scleral (unknown) (no (unknown) (unknown) Emergency Report (units (unknown) date) unknown) (unknown) (no (unknown) (unknown) Endometriosis (units ( unknown) date) (-2020) unknown) (unknown) (no (unknown) (unknown) Eos # (Auto) 300 (units (unknown) date) (0-450) /uL unknown) (unknown) (no (unknown) (unknown) Eos % (Auto) 3.9 (units (unknown) date) (2-4) % unknown) (unknown) (no (unknown) (unknown) Esterase (units (unkno wn) date) unknown) (unknown) (no (unknown) (unknown) Estimated GFR > 60 (units (unknown) date) (>60) mL/min unknown) (unknown) (no (unknown) (unknown) Exam Narrative: (units (unknown) date) unknown) (unknown) (no (unknown) (unknown) Exam (units (unkno wn) date) unknown) (unknown) (no (unknown) (unknown) Diana ] (units (unk nown) date) unknown) (unknown) (no (unknown) (unknown) GASTROINTESTINAL (units (unknown) date) see HPI unknown) (unknown) (no (unknown) (unknown) GASTROINTESTINAL: (units (unknown) date) Abdomen soft, unknown) non-tender, nondistended. (unknown) (no (unknown) (unknown) GENERAL: Denies (units (unknown) date) chills, fatigue, unknown) malaise, fever, sweats. (unknown) (no (unknown) (unknown) GENERAL: [21] year (units (unknown) date) old patient appears unknown) stated age. Well-developed patient, in (unknown) (no (unknown) (unknown) : D see HPI (units ( unknown) date) unknown) (unknown) (no (unknown) (unknown) General (units (unkno wn) date) unknown) (unknown) (no (unknown) (unknown) Globulin 2.6 (units (u nknown) date) (1.7-4.1) g/dL unknown) (unknown) (no (unknown) (unknown) Glucose 99 (units (unk nown) date) (70-100) mg/dL unknown) (unknown) (no (unknown) (unknown) HEAD: Atraumatic. (units (unknown) date) Normocephalic. unknown) (unknown) (no (unknown) (unknown) HEENT: Denies (units ( unknown) date) sinus pain, ear unknown) pain, sore throat, difficulty swallowing, (unknown) (no (unknown) (unknown) HPI - Abdominal (units (unknown) date) Pain unknown) (unknown) (no (unknown) (unknown) HPI narrative: (units (unknown) date) unknown) (unknown) (no (unknown) (unknown) Hct 36.6 (36-46) % (units (unknown) date) unknown) (unknown) (no (unknown) (unknown) Heavy menstrual (units (unknown) date) period (-2019) unknown) (unknown) (no (unknown) (unknown) Hemorrhagic cyst (units (unknown) date) of left ovary unknown) (unknown) (no (unknown) (unknown) Hgb 12.5 (units (unkno wn) date) (12.0-16.0) g/dL unknown) (unknown) (no (unknown) (unknown) History of Present (units (unknown) date) Illness unknown) (unknown) (no (unknown) (unknown) Hydrocodone (units (un known) date) Bitart/Acetaminophe unknown) n (Hydrocodone/Acet 5/325 Prepack) 1 bottle MISC (unknown) (no (unknown) (unknown) Initial Vital (units ( unknown) date) Signs unknown) (unknown) (no (unknown) (unknown) Initial Vital (units ( unknown) date) Signs: unknown) (unknown) (no (unknown) (unknown) Instructions: DI (units (unknown) date) for Ovarian Cyst unknown) (unknown) (no (unknown) (unknown) Irregular (units (unkn own) date) menstrual cycle unknown) (-2020) (unknown) (no (unknown) (unknown) [facility] (units (unknown) date) [address] unknown) [place] [address] (unknown) (no (unknown) (unknown) Agatha Abrams, (units (unknown) date) 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 [Primary Care unknown) Provider] (unknown) (no (unknown) (unknown) Ketorolac (units (unkn own) date) Tromethamine unknown) (Ketorolac 30 Mg/Ml Vial) 15 mg IV NOW ONE (unknown) (no (unknown) (unknown) Lab Data (units (unkno wn) date) unknown) (unknown) (no (unknown) (unknown) Lab Results (units (un known) date) unknown) (unknown) (no (unknown) (unknown) Labs: (units (unkno wn) date) unknown) (unknown) (no (unknown) (unknown) Last Admin: (units (un known) date) 06/07/22 04:13 unknown) Dose: Not Given (unknown) (no (unknown) (unknown) Last Admin: (units (un known) date) 06/07/22 04:20 unknown) Dose: 15 mg (unknown) (no (unknown) (unknown) Last Admin: (units (un known) date) 06/07/22 06:50 unknown) Dose: 1 bottle (unknown) (no (unknown) (unknown) Last Admin: (units (un known) date) 06/07/22 06:51 unknown) Dose: 1 bottle (unknown) (no (unknown) (unknown) Lipase 113 (units (unk nown) date) (23-300) U/L unknown) (unknown) (no (unknown) (unknown) Lymph # (Auto) (units (unknown) date) 2700 (7215-3110) unknown) /uL (unknown) (no (unknown) (unknown) Lymph % (Auto) (units (unknown) date) 32.4 (25-40) % unknown) (unknown) (no (unknown) (unknown) Lymphangioma (units (u nknown) date) unknown) (unknown) (no (unknown) (unknown) MCH 29.3 (26-34) (units (unknown) date) PG unknown) (unknown) (no (unknown) (unknown) MCHC 34.0 (30-36) (units (unknown) date) % unknown) (unknown) (no (unknown) (unknown) MCV 86.2 (80-100) (units (unknown) date) fL unknown) (unknown) (no (unknown) (unknown) MDM - Abdominal (units (unknown) date) Pain unknown) (unknown) (no (unknown) (unknown) MUSCULOSKELETAL: (units (unknown) date) denies weakness, unknown) joint pain, or bony pain (unknown) (no (unknown) (unknown) Medical History (units (unknown) date) (Reviewed 06/07/22 unknown) @ 05:36 by Tremaine Rae DO) (unknown) (no (unknown) (unknown) Medication (units (unk nown) date) Instructions unknown) Recorded (unknown) (no (unknown) (unknown) Mode of arrival: (units (unknown) date) Ambulatory unknown) (unknown) (no (unknown) (unknown) [place] # (Auto) 700 (units (unknown) date) (0-900) /uL unknown) (unknown) (no (unknown) (unknown) [place] % (Auto) 7.9 (units (unknown) date) (3-14) % unknown) (unknown) (no (unknown) (unknown) NECK: Trachea (units ( unknown) date) midline. Non tender unknown) (unknown) (no (unknown) (unknown) NEURO: AOx3. (units (u nknown) date) unknown) (unknown) (no (unknown) (unknown) NEUROLOGIC: Denies (units (unknown) date) weakness, headache, unknown) numbness, change in speech, confusion, (unknown) (no (unknown) (unknown) Narrative (units (unkn own) date) unknown) (unknown) (no (unknown) (unknown) Narrative: (units (unk nown) date) unknown) (unknown) (no (unknown) (unknown) Neut # (Auto) 4700 (units (unknown) date) (8169-0463) /uL unknown) (unknown) (no (unknown) (unknown) Neut % (Auto) 54.8 (units (unknown) date) (50-75) % unknown) (unknown) (no (unknown) (unknown) New (units (unkno wn) date) unknown) (unknown) (no (unknown) (unknown) No Action (units (unkn own) date) unknown) (unknown) (no (unknown) (unknown) Ondansetron HCl (units (unknown) date) (Ondansetron 4 Mg unknown) Odt Prepack) 1 bottle MISC SEEINSTR ONE (unknown) (no (unknown) (unknown) Ondansetron HCl (units (unknown) date) (Ondansetron 4 Mg unknown) Odt) 4 mg PO NOW ONE (unknown) (no (unknown) (unknown) Ondansetron HCl (units (unknown) date) (Ondansetron 4 Mg/2 unknown) Ml Inj) 4 mg IV NOW ONE (unknown) (no (unknown) (unknown) Opioids - Morphine (units (unknown) date) Analogues Allergy unknown) Intermediate rash Verified 04/19/22 07:57 (unknown) (no (unknown) (unknown) Ordered: (units (unkno wn) date) unknown) (unknown) (no (unknown) (unknown) Orders (units (unkno wn) date) unknown) (unknown) (no (unknown) (unknown) Ovarian cyst (units (u nknown) date) unknown) (unknown) (no (unknown) (unknown) Oxygen Delivery (units (unknown) date) Method 06/07/22 unknown) 02:06 (unknown) (no (unknown) (unknown) Oxygen Delivery (units (unknown) date) Method Room Air unknown) (unknown) (no (unknown) (unknown) PSYCHIATRIC: No (units (unknown) date) concerning unknown) psychosocial issues. (unknown) (no (unknown) (unknown) Painful menstrual (units (unknown) date) periods () unknown) (unknown) (no (unknown) (unknown) Patient (units (unkno wn) date) Disposition: Home unknown) (unknown) (no (unknown) (unknown) Patient History (units (unknown) date) unknown) (unknown) (no (unknown) (unknown) Patient: (units (unkno wn) date) Ade Vidales unknown) MR#: [id number] (unknown) (no (unknown) (unknown) Plt Count 359 (units ( unknown) date) (150-400) X103/uL unknown) (unknown) (no (unknown) (unknown) Point of Care (units ( unknown) date) Testing unknown) (unknown) (no (unknown) (unknown) Point of care (units ( unknown) date) testing: unknown) (unknown) (no (unknown) (unknown) Potassium 3.6 (units ( unknown) date) (3.4-5.1) mmol/L unknown) (unknown) (no (unknown) (unknown) Test (units (unknown) date) Results Negative unknown) (unknown) (no (unknown) (unknown) Prescriptions: (units (unknown) date) unknown) (unknown) (no (unknown) (unknown) Previous Rx's (units ( unknown) date) unknown) (unknown) (no (unknown) (unknown) Pulse Oximetry 100 (units (unknown) date) 06/07/22 02:06 unknown) (unknown) (no (unknown) (unknown) Pulse Oximetry 100 (units (unknown) date) unknown) (unknown) (no (unknown) (unknown) Pulse Rate 72 (units ( unknown) date) 06/07/22 02:06 unknown) (unknown) (no (unknown) (unknown) Pulse Rate 72 (units ( unknown) date) unknown) (unknown) (no (unknown) (unknown) RBC 4.25 (4.0-5.2) (units (unknown) date) X106/uL unknown) (unknown) (no (unknown) (unknown) RDW 14.0 (units (unkno wn) date) (11.6-14.8) % unknown) (unknown) (no (unknown) (unknown) RESPIRATORY: Clear (units (unknown) date) to auscultation. unknown) Breath sounds equal bilaterally. No wheezes, (unknown) (no (unknown) (unknown) RESPIRATORY: (units (u nknown) date) Denies dyspnea, unknown) cough, wheezing, hemoptysis, sputum. (unknown) (no (unknown) (unknown) Referrals: (units (unk nown) date) unknown) (unknown) (no (unknown) (unknown) Related Data (units (u nknown) date) unknown) (unknown) (no (unknown) (unknown) Respiratory Rate (units (unknown) date) 16 06/07/22 02:06 unknown) (unknown) (no (unknown) (unknown) Respiratory Rate (units (unknown) date) 16 unknown) (unknown) (no (unknown) (unknown) Result diagrams: (units (unknown) date) unknown) (unknown) (no (unknown) (unknown) Review of Systems (units (unknown) date) unknown) (unknown) (no (unknown) (unknown) S/P ACL (units (unkno wn) date) reconstruction unknown) (-06/08/21) (unknown) (no (unknown) (unknown) SEEINSTR ONE (units (u nknown) date) unknown) (unknown) (no (unknown) (unknown) SKIN: Denies rash, (units (unknown) date) skin lesions, or unknown) other (unknown) (no (unknown) (unknown) SKIN: No rash or (units (unknown) date) erythema of visible unknown) areas (unknown) (no (unknown) (unknown) Signed By: (units (unk nown) date) unknown) (unknown) (no (unknown) (unknown) Smoking Status: (units (unknown) date) Current some day unknown) smoker (unknown) (no (unknown) (unknown) Social History (units (unknown) date) (Reviewed 06/07/22 unknown) @ 05:36 by Tremaine Rae DO) (unknown) (no (unknown) (unknown) Sodium 138 (units (unk nown) date) (137-145) mmol/L unknown) (unknown) (no (unknown) (unknown) Source: patient (units (unknown) date) unknown) (unknown) (no (unknown) (unknown) Stated Complaint: (units (unknown) date) ABD PAIN unknown) (unknown) (no (unknown) (unknown) Stop: 06/07/22 (units (unknown) date) 02:42 unknown) (unknown) (no (unknown) (unknown) Stop: 06/07/22 (units (unknown) date) 03:44 unknown) (unknown) (no (unknown) (unknown) Stop: 06/07/22 (units (unknown) date) 06:24 unknown) (unknown) (no (unknown) (unknown) Substance Use (units ( unknown) date) Type: does not use unknown) (unknown) (no (unknown) (unknown) Surgical History (units (unknown) date) (Reviewed 06/07/22 unknown) @ 05:36 by Tremaine Rae DO) (unknown) (no (unknown) (unknown) TOA (tubo-ovarian (units (unknown) date) abscess) unknown) (-06/28/21) (unknown) (no (unknown) (unknown) Temperature 98.4 F (units (unknown) date) 06/07/22 02:06 unknown) (unknown) (no (unknown) (unknown) Temperature 98.4 F (units (unknown) date) unknown) (unknown) (no (unknown) (unknown) Time Seen by (units (u nknown) date) Provider: 06/07/22 unknown) 02:07 (unknown) (no (unknown) (unknown) Total Bilirubin (units (unknown) date) 0.4 (0.2-1.3) mg/dL unknown) (unknown) (no (unknown) (unknown) Total Protein 6.6 (units (unknown) date) (6.3-8.2) g/dL unknown) (unknown) (no (unknown) (unknown) Urine Dip (units (unkn own) date) unknown) (unknown) (no (unknown) (unknown) Urine Specific (units (unknown) date) [place] 1.025 unknown) (unknown) (no (unknown) (unknown) Visit Report (units (u nknown) date) Forms: Patient unknown) Portal/API (unknown) (no (unknown) (unknown) Vital Signs - 8 hr (units (unknown) date) unknown) (unknown) (no (unknown) (unknown) Vital Signs (units (un known) date) unknown) (unknown) (no (unknown) (unknown) Vital signs: (units (u nknown) date) unknown) (unknown) (no (unknown) (unknown) WBC 8.5 (4.5-11.0) (units (unknown) date) X103/uL unknown) (unknown) (no (unknown) (unknown) [ ] New medication (units (unknown) date) written as a paper unknown) prescription (unknown) (no (unknown) (unknown) [ ] No new (units (unk nown) date) medications given unknown) (unknown) (no (unknown) (unknown) [ x] New (units (unkno wn) date) medication unknown) prescriptions sent to your pharmacy: [[facility] in (unknown) (no (unknown) (unknown) [Embedded Image (units (unknown) date) Not Available] unknown) (unknown) (no (unknown) (unknown) abscess presents (units (unknown) date) with significant unknown) other and a chief complaint of severe left (unknown) (no (unknown) (unknown) alcohol intake (units (unknown) date) frequency: unknown) holidays/special occasions only (unknown) (no (unknown) (unknown) alcohol intake: (units (unknown) date) current unknown) (unknown) (no (unknown) (unknown) appointment. Let (units (unknown) date) them know you were unknown) seen in the Emergency Department and that we (unknown) (no (unknown) (unknown) ask that you be (units (unknown) date) seen in follow up. unknown) We will electronically transmit a record of (unknown) (no (unknown) (unknown) clindamycin HCl (units (unknown) date) 150 mg capsule 150 unknown) mg PO DAILY #30 caps 03/17/22 (unknown) (no (unknown) (unknown) clindamycin HCl (units (unknown) date) 150 mg capsule unknown) (unknown) (no (unknown) (unknown) concerning (units (unk nown) date) symptoms, such as unknown) [fever greater than 101 F, shaking chills, (unknown) (no (unknown) (unknown) denies any (units (unk nown) date) vomiting. She is unknown) had no change in her bowel habits. She denies (unknown) (no (unknown) (unknown) dizziness. (units (unk nown) date) unknown) (unknown) (no (unknown) (unknown) doxycycline (units (un known) date) AdvReac unknown) Intermediate vomitt Verified 04/19/22 07:57 (unknown) (no (unknown) (unknown) dysuria, frequency (units (unknown) date) or urgency. unknown) (unknown) (no (unknown) (unknown) for persistent (units (unknown) date) right lower unknown) quadrant pain in the aftermath of a tubo-ovarian (unknown) (no (unknown) (unknown) household members: (units (unknown) date) friend(s) unknown) (unknown) (no (unknown) (unknown) hydrocodone 5 (units ( unknown) date) mg-acetaminophen unknown) 325 1 tab PO Q4-6H PRN pain #10 tabs 06/07/22 (unknown) (no (unknown) (unknown) hydrocodone-acetam (units (unknown) date) inophen 5-325 mg unknown) tablet (unknown) (no (unknown) (unknown) hydromorphone 4 mg (units (unknown) date) tablet 4 mg PO unknown) Q4-6H PRN pain #20 tabs 04/08/22 (unknown) (no (unknown) (unknown) hydromorphone (units ( unknown) date) [Dilaudid] 4 mg unknown) tablet (unknown) (no (unknown) (unknown) icterus. No (units (un known) date) injection or unknown) drainage. (unknown) (no (unknown) (unknown) ketorolac 10 mg (units (unknown) date) tablet 10 mg PO Q6H unknown) PRN pain #14 tabs 06/07/22 (unknown) (no (unknown) (unknown) ketorolac 10 mg (units (unknown) date) tablet unknown) (unknown) (no (unknown) (unknown) lower quadrant (units (unknown) date) pain over the past unknown) few days. The pain is severe and seems to be (unknown) (no (unknown) (unknown) mg tablet (units (unkn own) date) unknown) (unknown) (no (unknown) (unknown) mild distress. (units (unknown) date) unknown) (unknown) (no (unknown) (unknown) ondansetron 4 mg (units (unknown) date) disintegrating 4 mg unknown) PO TID-QID PRN nausea and 06/07/22 (unknown) (no (unknown) (unknown) ondansetron 4 mg (units (unknown) date) tablet,disintegrati unknown) ng (unknown) (no (unknown) (unknown) oxycodone 5 mg (units (unknown) date) tablet 5 mg PO Q4H unknown) PRN pain #20 tabs 04/07/22 (unknown) (no (unknown) (unknown) oxycodone 5 mg (units (unknown) date) tablet unknown) (unknown) (no (unknown) (unknown) radiates to her (units (unknown) date) back. She denies unknown) any fever chills. She is been nauseated but (unknown) (no (unknown) (unknown) rales, or rhonchi. (units (unknown) date) unknown) (unknown) (no (unknown) (unknown) seizures, (units (unkn own) date) incoordination. unknown) (unknown) (no (unknown) (unknown) tablet vomiting (units (unknown) date) #10 tabs unknown) (unknown) (no (unknown) (unknown) tobacco type: (units ( unknown) date) vaping unknown) (unknown) (no (unknown) (unknown) today's note (units (u nknown) date) unknown) (unknown) (no (unknown) (unknown) tonsillar (units (unkn own) date) hypertrophy or unknown) exudate. Airway patent. (unknown) (no (unknown) (unknown) worse with motion (units (unknown) date) and improves with unknown) rest. She does at times feel like the pain (unknown) (no (unknown) (unknown) worsening pain, (units (unknown) date) persistent vomiting unknown) or other bothersome symptoms] Result panel 553 (unknown) (no (unknown) (unknown) (no value) (units (unk nown) date) unknown) (unknown) (no (unknown) (unknown) #10 tabs (units (unkno wn) date) 06/07/22 [Rx unknown) Confirmed 06/14/22] (unknown) (no (unknown) (unknown) [id number] (units (unkno wn) date) unknown) (unknown) (no (unknown) (unknown) 06/07/22 [Rx (units (u nknown) date) Confirmed unknown) 06/14/22] (unknown) (no (unknown) (unknown) 06/14/22 (units (unkno wn) date) unknown) (unknown) (no (unknown) (unknown) 06/14/22] (units (unkn own) date) unknown) (unknown) (no (unknown) (unknown) 14:51 (units (unkno wn) date) unknown) (unknown) (no (unknown) (unknown) Acne (-2016) (units (u nknown) date) unknown) (unknown) (no (unknown) (unknown) Age/Sex: 21 / F (units (unknown) date) Date of Service: unknown) (unknown) (no (unknown) (unknown) Allergies (units (unkn own) date) unknown) (unknown) (no (unknown) (unknown) [place], [place] (units ( unknown) date) [id number] unknown) (unknown) (no (unknown) (unknown) Anesthesia (units (unk nown) date) unknown) (unknown) (no (unknown) (unknown) Attending Dr: (units ( unknown) date) Sushant Bryant unknown) (unknown) (no (unknown) (unknown) BMI 27.1 (units (unkno wn) date) unknown) (unknown) (no (unknown) (unknown) BP 110/62 (units (unkn own) date) unknown) (unknown) (no (unknown) (unknown) Blood Pressure (units (unknown) date) Location Rt unknown) brachial (unknown) (no (unknown) (unknown) Chlamydia (units (unkn own) date) infection () unknown) (unknown) (no (unknown) (unknown) : 2000 (units (unknown) date) Acct:[id number] unknown) (unknown) (no (unknown) (unknown) Dept at (units (unkno wn) date) . unknown) (unknown) (no (unknown) (unknown) Documented By: (units (unknown) date) Sushant Bryant unknown) 06/14/22 1450 (unknown) (no (unknown) (unknown) Draft (units (unkno wn) date) unknown) (unknown) (no (unknown) (unknown) Endometriosis (units ( unknown) date) () unknown) (unknown) (no (unknown) (unknown) [facility]) (unknown) (no (unknown) (unknown) Gynecology Visit (units (unknown) date) unknown) (unknown) (no (unknown) (unknown) Heavy menstrual (units (unknown) date) period () unknown) (unknown) (no (unknown) (unknown) Height 5 ft 3 in (units (unknown) date) unknown) (unknown) (no (unknown) (unknown) Intake Note: (units (u nknown) date) unknown) (unknown) (no (unknown) (unknown) Intake performed (units (unknown) date) by: Perry Mancilla unknown) (unknown) (no (unknown) (unknown) Intake (units [...] Medical History (units (unknown) date) (Reviewed unknown) 06/07/22 @ 05:36 by Tremaine Rae DO) (unknown) (no (unknown) (unknown) Medications (units (un known) date) unknown) (unknown) (no (unknown) (unknown) Opioids - (units (unkn own) date) Morphine unknown) Analogues Allergy (Intermediate, Verified 06/14/22 14:51) (unknown) (no (unknown) (unknown) Other Menstrual (units (unknown) date) Period: Other unknown) (unknown) (no (unknown) (unknown) Ovarian cyst (units (u nknown) date) unknown) (unknown) (no (unknown) (unknown) PFSH (units (unkno wn) date) unknown) (unknown) (no (unknown) (unknown) Painful (units (unkno wn) date) menstrual periods unknown) () (unknown) (no (unknown) (unknown) Patient: (units (unkno wn) date) Ade Vidales E unknown) MR#: [id number] (unknown) (no (unknown) (unknown) Position Sitting (units (unknown) date) unknown) (unknown) (no (unknown) (unknown) Pt here to (units (unk nown) date) follow-up on her unknown) hemorrhagic ovarian cyst (unknown) (no (unknown) (unknown) Reason For Visit (units (unknown) date) unknown) (unknown) (no (unknown) (unknown) S/P ACL (units (unkno wn) date) reconstruction unknown) (-06/08/21) (unknown) (no (unknown) (unknown) Signed By: (units (unk nown) date) unknown) (unknown) (no (unknown) (unknown) Smoking Status: (units (unknown) date) Current some day unknown) smoker (unknown) (no (unknown) (unknown) Social History (units (unknown) date) unknown) (unknown) (no (unknown) (unknown) Surgical History (units (unknown) date) (Reviewed unknown) 06/07/22 @ 05:36 by Tremaine Rae DO) (unknown) (no (unknown) (unknown) TOA (units (unkno [...] (unknown) (unknown) Visit Reasons: (units (unknown) date) Hemorrhagic unknown) Ovarian Cyst F/U (unknown) (no (unknown) (unknown) Vitals (units (unkno wn) date) unknown) (unknown) (no (unknown) (unknown) Weight 153 lb (units ( unknown) date) unknown) (unknown) (no (unknown) (unknown) [Rx Confirmed (units ( unknown) date) 06/14/22] unknown) (unknown) (no (unknown) (unknown) alcohol intake: (units (unknown) date) current unknown) (unknown) (no (unknown) (unknown) clindamycin HCl (units (unknown) date) 150 mg capsule unknown) 150 mg PO DAILY #30 caps 03/17/22 [Rx Confirmed (unknown) (no (unknown) (unknown) doxycycline (units (un known) date) Adverse Reaction unknown) (Intermediate, Verified 06/14/22 14:51) (unknown) (no (unknown) (unknown) have occurred. (units (unknown) date) If there are any unknown) questions, please contact the Medical Records (unknown) (no (unknown) (unknown) household (units (unkn own) date) members: unknown) friend(s) (unknown) (no (unknown) (unknown) hydrocodone 5 (units ( unknown) date) mg-acetaminophen unknown) 325 mg tablet 1 tab PO Q4-6H PRN pain #10 tabs (unknown) (no (unknown) (unknown) hydromorphone 4 (units (unknown) date) mg tablet unknown) (Dilaudid) 4 mg PO Q4-6H PRN pain #20 tabs 04/08/22 (unknown) (no (unknown) (unknown) ketorolac 10 mg (units (unknown) date) tablet 10 mg PO unknown) Q6H PRN pain #14 tabs 06/07/22 [Rx Confirmed (unknown) (no (unknown) (unknown) may occur. (units (unk nown) date) Occasional unknown) wrong-word or 'sound-alike' substitutions may have (unknown) (no (unknown) (unknown) occurred due to (units (unknown) date) the inherent unknown) limitations of voice recognition software. Please (unknown) (no (unknown) (unknown) ondansetron 4 mg (units (unknown) date) disintegrating unknown) tablet 4 mg PO TID-QID PRN nausea and vomiting (unknown) (no (unknown) (unknown) oxycodone 5 mg (units (unknown) date) tablet 5 mg PO unknown) Q4H PRN pain #20 tabs 04/07/22 [Rx Confirmed (unknown) (no (unknown) (unknown) rash (units (unkno wn) date) unknown) (unknown) (no (unknown) (unknown) read the note (units ( unknown) date) carefully and unknown) recognize, using context, where these substitutions (unknown) (no (unknown) (unknown) software. (units (unkn own) date) Although every unknown) effort is made to edit content, cabinet abrasive sandblaster errors (unknown) (no (unknown) (unknown) roxannangela (units (unkno wn) date) unknown) Result panel 554 (unknown) (no (unknown) (unknown) (no value) (units (unk nown) date) unknown) (unknown) (no (unknown) (unknown) #10 tabs (units (unkno wn) date) 06/07/22 [Rx unknown) Confirmed 06/14/22] (unknown) (no (unknown) (unknown) [id number] (units (unkno wn) date) unknown) (unknown) (no (unknown) (unknown) 06/07/22 [Rx (units (u nknown) date) Confirmed unknown) 06/14/22] (unknown) (no (unknown) (unknown) 06/14/22 (units (unkno wn) date) unknown) (unknown) (no (unknown) (unknown) 06/14/22] (units (unkn own) date) unknown) (unknown) (no (unknown) (unknown) 14:51 (units (unkno wn) date) unknown) (unknown) (no (unknown) (unknown) Acne (-2016) (units (u nknown) date) unknown) (unknown) (no (unknown) (unknown) Age/Sex: 21 / F (units (unknown) date) Date of Service: unknown) (unknown) (no (unknown) (unknown) Allergies (units (unkn own) date) unknown) (unknown) (no (unknown) (unknown) [place], [place] (units ( unknown) date) [id number] unknown) (unknown) (no (unknown) (unknown) Anesthesia (units (unk nown) date) unknown) (unknown) (no (unknown) (unknown) Attending Dr: (units ( unknown) date) Sushant Bryant unknown) (unknown) (no (unknown) (unknown) BMI 27.1 (units (unkno wn) date) unknown) (unknown) (no (unknown) (unknown) BP 110/62 (units (unkn own) date) unknown) (unknown) (no (unknown) (unknown) Blood Pressure (units (unknown) date) Location Rt unknown) brachial (unknown) (no (unknown) (unknown) Chlamydia (units (unkn own) date) infection () unknown) (unknown) (no (unknown) (unknown) : 2000 (units (unknown) date) Acct:[id number] unknown) (unknown) (no (unknown) (unknown) Dept at (units (unkno wn) date) . unknown) (unknown) (no (unknown) (unknown) Documented By: (units (unknown) date) Sushant Bryant unknown) 06/14/22 1450 (unknown) (no (unknown) (unknown) Draft (units (unkno wn) date) unknown) (unknown) (no (unknown) (unknown) Endometriosis (units ( unknown) date) () unknown) (unknown) (no (unknown) (unknown) [facility]) (unknown) (no (unknown) (unknown) Gynecology Visit (units (unknown) date) unknown) (unknown) (no (unknown) (unknown) Heavy menstrual (units (unknown) date) period () unknown) (unknown) (no (unknown) (unknown) Height 5 ft 3 in (units (unknown) date) unknown) (unknown) (no (unknown) (unknown) Intake Note: (units (u nknown) date) unknown) (unknown) (no (unknown) (unknown) Intake performed (units (unknown) date) by: Perry Mancilla unknown) (unknown) (no (unknown) (unknown) Intake (units [...] Medical History (units (unknown) date) (Reviewed unknown) 06/07/22 @ 05:36 by Tremaine Rae DO) (unknown) (no (unknown) (unknown) Medications (units (un known) date) unknown) (unknown) (no (unknown) (unknown) Opioids - (units (unkn own) date) Morphine unknown) Analogues Allergy (Intermediate, Verified 06/14/22 14:51) (unknown) (no (unknown) (unknown) Other Menstrual (units (unknown) date) Period: Other unknown) (unknown) (no (unknown) (unknown) Ovarian cyst (units (u nknown) date) unknown) (unknown) (no (unknown) (unknown) PFSH (units (unkno wn) date) unknown) (unknown) (no (unknown) (unknown) Painful (units (unkno wn) date) menstrual periods unknown) () (unknown) (no (unknown) (unknown) Patient: (units (unkno wn) date) Ade Vidales E unknown) MR#: [id number] (unknown) (no (unknown) (unknown) Position Sitting (units (unknown) date) unknown) (unknown) (no (unknown) (unknown) Pt here to (units (unk nown) date) follow-up on her unknown) hemorrhagic ovarian cyst pt was seen in the ED (unknown) (no (unknown) (unknown) Reason For Visit (units (unknown) date) unknown) (unknown) (no (unknown) (unknown) S/P ACL (units (unkno wn) date) reconstruction unknown) (-06/08/21) (unknown) (no (unknown) (unknown) Signed By: (units (unk nown) date) unknown) (unknown) (no (unknown) (unknown) Smoking Status: (units (unknown) date) Current some day unknown) smoker (unknown) (no (unknown) (unknown) Social History (units (unknown) date) unknown) (unknown) (no (unknown) (unknown) Surgical History (units (unknown) date) (Reviewed unknown) 06/07/22 @ 05:36 by Tremaine Rae DO) (unknown) (no (unknown) (unknown) TOA (units (unkno [...] (unknown) (unknown) Visit Reasons: (units (unknown) date) Hemorrhagic unknown) Ovarian Cyst F/U (unknown) (no (unknown) (unknown) Vitals (units (unkno wn) date) unknown) (unknown) (no (unknown) (unknown) Weight 153 lb (units ( unknown) date) unknown) (unknown) (no (unknown) (unknown) [Rx Confirmed (units ( unknown) date) 06/14/22] unknown) (unknown) (no (unknown) (unknown) alcohol intake: (units (unknown) date) current unknown) (unknown) (no (unknown) (unknown) clindamycin HCl (units (unknown) date) 150 mg capsule unknown) 150 mg PO DAILY #30 caps 03/17/22 [Rx Confirmed (unknown) (no (unknown) (unknown) doxycycline (units (un known) date) Adverse Reaction unknown) (Intermediate, Verified 06/14/22 14:51) (unknown) (no (unknown) (unknown) have occurred. (units (unknown) date) If there are any unknown) questions, please contact the Medical Records (unknown) (no (unknown) (unknown) household (units (unkn own) date) members: unknown) friend(s) (unknown) (no (unknown) (unknown) hydrocodone 5 (units ( unknown) date) mg-acetaminophen unknown) 325 mg tablet 1 tab PO Q4-6H PRN pain #10 tabs (unknown) (no (unknown) (unknown) hydromorphone 4 (units (unknown) date) mg tablet unknown) (Dilaudid) 4 mg PO Q4-6H PRN pain #20 tabs 04/08/22 (unknown) (no (unknown) (unknown) ketorolac 10 mg (units (unknown) date) tablet 10 mg PO unknown) Q6H PRN pain #14 tabs 06/07/22 [Rx Confirmed (unknown) (no (unknown) (unknown) may occur. (units (unk nown) date) Occasional unknown) wrong-word or 'sound-alike' substitutions may have (unknown) (no (unknown) (unknown) occurred due to (units (unknown) date) the inherent unknown) limitations of voice recognition software. Please (unknown) (no (unknown) (unknown) ondansetron 4 mg (units (unknown) date) disintegrating unknown) tablet 4 mg PO TID-QID PRN nausea and vomiting (unknown) (no (unknown) (unknown) oxycodone 5 mg (units (unknown) date) tablet 5 mg PO unknown) Q4H PRN pain #20 tabs 04/07/22 [Rx Confirmed (unknown) (no (unknown) (unknown) rash (units (unkno wn) date) unknown) (unknown) (no (unknown) (unknown) read the note (units ( unknown) date) carefully and unknown) recognize, using context, where these substitutions (unknown) (no (unknown) (unknown) software. (units (unkn own) date) Although every unknown) effort is made to edit content, cabinet abrasive sandblaster errors (unknown) (no (unknown) (unknown) vomitt (units (unkno wn) date) unknown) Result panel 555 (unknown) (no (unknown) (unknown) (no value) (units (unk nown) date) unknown) (unknown) (no (unknown) (unknown) #10 tabs (units (unkno wn) date) 06/07/22 [Rx unknown) Confirmed 06/14/22] (unknown) (no (unknown) (unknown) [id number] (units (unkno wn) date) unknown) (unknown) (no (unknown) (unknown) 06/07/22 [Rx (units (u nknown) date) Confirmed unknown) 06/14/22] (unknown) (no (unknown) (unknown) 06/14/22 (units (unkno wn) date) unknown) (unknown) (no (unknown) (unknown) 06/14/22] (units (unkn own) date) unknown) (unknown) (no (unknown) (unknown) 14:51 (units (unkno wn) date) unknown) (unknown) (no (unknown) (unknown) Acne (-2016) (units (u nknown) date) unknown) (unknown) (no (unknown) (unknown) Age/Sex: 21 / F (units (unknown) date) Date of Service: unknown) (unknown) (no (unknown) (unknown) Allergies (units (unkn own) date) unknown) (unknown) (no (unknown) (unknown) [place], [place] (units ( unknown) date) [id number] unknown) (unknown) (no (unknown) (unknown) Anesthesia (units (unk nown) date) unknown) (unknown) (no (unknown) (unknown) Attending Dr: (units ( unknown) date) Sushant Bryant unknown) (unknown) (no (unknown) (unknown) BMI 27.1 (units (unkno wn) date) unknown) (unknown) (no (unknown) (unknown) BP 110/62 (units (unkn own) date) unknown) (unknown) (no (unknown) (unknown) Blood Pressure (units (unknown) date) Location Rt unknown) brachial (unknown) (no (unknown) (unknown) Chlamydia (units (unkn own) date) infection () unknown) (unknown) (no (unknown) (unknown) : 2000 (units (unknown) date) Acct:[id number] unknown) (unknown) (no (unknown) (unknown) Dept at (units (unkno wn) date) . unknown) (unknown) (no (unknown) (unknown) Documented By: (units (unknown) date) Sushant Bryant unknownFlip MOORE 06/14/22 1450 (unknown) (no (unknown) (unknown) Draft (units (unkno wn) date) unknown) (unknown) (no (unknown) (unknown) Endometriosis (units ( unknown) date) () unknown) (unknown) (no (unknown) (unknown) [facility] (units ([facility] date[facility] unknown) (unknown) (no (unknown) (unknown) Gynecology Visit (units (unknown) date) unknown) (unknown) (no (unknown) (unknown) Heavy menstrual (units (unknown) date) period (-2019) unknown) (unknown) (no (unknown) (unknown) Height 5 ft 3 in (units (unknown) date) unknown) (unknown) (no (unknown) (unknown) Intake Note: (units (u nknown) date) unknown) (unknown) (no (unknown) (unknown) Intake performed (units (unknown) date) by: Perry Mancilla unknown) (unknown) (no (unknown) (unknown) Intake (units [...] Medical History (units (unknown) date) (Reviewed unknown) 06/07/22 @ 05:36 by Tremaine Rae DO) (unknown) (no (unknown) (unknown) Medications (units (un known) date) unknown) (unknown) (no (unknown) (unknown) Opioids - (units (unkn own) date) Morphine unknown) Analogues Allergy (Intermediate, Verified 06/14/22 14:51) (unknown) (no (unknown) (unknown) Other Menstrual (units (unknown) date) Period: Other unknown) (unknown) (no (unknown) (unknown) Ovarian cyst (units (u nknown) date) unknown) (unknown) (no (unknown) (unknown) PFSH (units (unkno wn) date) unknown) (unknown) (no (unknown) (unknown) Painful (units (unkno wn) date) menstrual periods unknown) () (unknown) (no (unknown) (unknown) Patient: (units (unkno wn) date) FlashAde E unknown) MR#: [id number] (unknown) (no (unknown) (unknown) Position Sitting (units (unknown) date) unknown) (unknown) (no (unknown) (unknown) Pt here to (units (unkn own) date) follow-up on her unknown) hemorrhagic ovarian cyst pt was seen in the ED at (unknown) (no (unknown) (unknown) Reason For Visit (units (unknown) date) unknown) (unknown) (no (unknown) (unknown) S/P ACL (units (unkno wn) date) reconstruction unknown) (-06/08/21) (unknown) (no (unknown) (unknown) Signed By: (units (unk nown) date) unknown) (unknown) (no (unknown) (unknown) Smoking Status: (units (unknown) date) Current some day unknown) smoker (unknown) (no (unknown) (unknown) Social History (units (unknown) date) unknown) (unknown) (no (unknown) (unknown) Surgical History (units (unknown) date) (Reviewed unknown) 06/07/22 @ 05:36 by Tremaine Rae DO) (unknown) (no (unknown) (unknown) TOA (units (unkno [...] (unknown) (unknown) Visit Reasons: (units (unknown) date) Hemorrhagic unknown) Ovarian Cyst F/U (unknown) (no (unknown) (unknown) Vitals (units (unkno wn) date) unknown) (unknown) (no (unknown) (unknown) Weight 153 lb (units ( unknown) date) unknown) (unknown) (no (unknown) (unknown) [Rx Confirmed (units ( unknown) date) 06/14/22] unknown) (unknown) (no (unknown) (unknown) alcohol intake: (units (unknown) date) current unknown) (unknown) (no (unknown) (unknown) clindamycin HCl (units (unknown) date) 150 mg capsule unknown) 150 mg PO DAILY #30 caps 03/17/22 [Rx Confirmed (unknown) (no (unknown) (unknown) doxycycline (units (un known) date) Adverse Reaction unknown) (Intermediate, Verified 06/14/22 14:51) (unknown) (no (unknown) (unknown) have occurred. (units (unknown) date) If there are any unknown) questions, please contact the Medical Records (unknown) (no (unknown) (unknown) household (units (unkn own) date) members: unknown) friend(s) (unknown) (no (unknown) (unknown) hydrocodone 5 (units ( unknown) date) mg-acetaminophen unknown) 325 mg tablet 1 tab PO Q4-6H PRN pain #10 tabs (unknown) (no (unknown) (unknown) hydromorphone 4 (units (unknown) date) mg tablet unknown) (Dilaudid) 4 mg PO Q4-6H PRN pain #20 tabs 04/08/22 (unknown) (no (unknown) (unknown) ketorolac 10 mg (units (unknown) date) tablet 10 mg PO unknown) Q6H PRN pain #14 tabs 06/07/22 [Rx Confirmed (unknown) (no (unknown) (unknown) may occur. (units (unk nown) date) Occasional unknown) wrong-word or 'sound-alike' substitutions may have (unknown) (no (unknown) (unknown) occurred due to (units (unknown) date) the inherent unknown) limitations of voice recognition software. Please (unknown) (no (unknown) (unknown) on 06/07 due to (units (unknown) date) extreme pain pt unknown) had a pelvic US and pelvic CT done (unknown) (no (unknown) (unknown) ondansetron 4 mg (units (unknown) date) disintegrating unknown) tablet 4 mg PO TID-QID PRN nausea and vomiting (unknown) (no (unknown) (unknown) oxycodone 5 mg (units (unknown) date) tablet 5 mg PO unknown) Q4H PRN pain #20 tabs 04/07/22 [Rx Confirmed (unknown) (no (unknown) (unknown) rash (units (unkno wn) date) unknown) (unknown) (no (unknown) (unknown) read the note (units ( unknown) date) carefully and unknown) recognize, using context, where these substitutions (unknown) (no (unknown) (unknown) software. (units (unkn own) date) Although every unknown) effort is made to edit content, cabinet abrasive sandblaster errors (unknown) (no (unknown) (unknown) roxannangela (units (unkno wn) date) unknown) Result panel 556 (unknown) (no (unknown) (unknown) (no value) (units (unk nown) date) unknown) (unknown) (no (unknown) (unknown) #10 tabs (units (unkno wn) date) 06/07/22 [Rx unknown) Confirmed 06/14/22] (unknown) (no (unknown) (unknown) [id number] (units (unkno wn) date) unknown) (unknown) (no (unknown) (unknown) 06/07/22 [Rx (units (u nknown) date) Confirmed unknown) 06/14/22] (unknown) (no (unknown) (unknown) 06/14/22 (units (unkno wn) date) unknown) (unknown) (no (unknown) (unknown) 06/14/22] (units (unkn own) date) unknown) (unknown) (no (unknown) (unknown) 14:51 (units (unkno wn) date) unknown) (unknown) (no (unknown) (unknown) Acne (-2016) (units (u nknown) date) unknown) (unknown) (no (unknown) (unknown) Age/Sex: 21 / F (units (unknown) date) Date of Service: unknown) (unknown) (no (unknown) (unknown) Allergies (units (unkn own) date) unknown) (unknown) (no (unknown) (unknown) [place], [place] (units ( unknown) date) [id number] unknown) (unknown) (no (unknown) (unknown) Anesthesia (units (unk nown) date) unknown) (unknown) (no (unknown) (unknown) Attending Dr: (units ( unknown) date) Sushant Bryant unknown) (unknown) (no (unknown) (unknown) BMI 27.1 (units (unkno wn) date) unknown) (unknown) (no (unknown) (unknown) BP 110/62 (units (unkn own) date) unknown) (unknown) (no (unknown) (unknown) Blood Pressure (units (unknown) date) Location Rt unknown) brachial (unknown) (no (unknown) (unknown) Chief Complaint (units (unknown) date) unknown) (unknown) (no (unknown) (unknown) Chief Complaint: (units (unknown) date) ED follow-up unknown) (unknown) (no (unknown) (unknown) Chlamydia (units (unkn own) date) infection () unknown) (unknown) (no (unknown) (unknown) : 2000 (units (unknown) date) Acct:[id number] unknown) (unknown) (no (unknown) (unknown) Dept at (units (unkno wn) date) . unknown) (unknown) (no (unknown) (unknown) Details: (units (unkno wn) date) unknown) (unknown) (no (unknown) (unknown) Documented By: (units (unknown) date) Sushant Bryant unknown) 06/14/22 1450 (unknown) (no (unknown) (unknown) Draft (units (unkno wn) date) unknown) (unknown) (no (unknown) (unknown) Endometriosis (units ( unknown) date) () unknown) (unknown) (no (unknown) (unknown) [facility]) (unknown) (no (unknown) (unknown) [facility] ([facility]) (no (unknown) (unknown) Gynecology Visit (units (unknown) date) unknown) (unknown) (no (unknown) (unknown) HPI (units (unkno wn) date) unknown) (unknown) (no (unknown) (unknown) Heavy menstrual (units (unknown) date) period (-2018) unknown) (unknown) (no (unknown) (unknown) Height 5 ft 3 in (units (unknown) date) unknown) (unknown) (no (unknown) (unknown) Intake Note: (units (u nknown) date) unknown) (unknown) (no (unknown) (unknown) Intake performed (units (unknown) date) by: Perry Mancilla unknown) (unknown) (no (unknown) (unknown) Intake (units [...] Medical History (units (unknown) date) (Reviewed unknown) 06/07/22 @ 05:36 by Tremaine Rae DO) (unknown) (no (unknown) (unknown) Medications (units (un known) date) unknown) (unknown) (no (unknown) (unknown) Opioids - (units (unkn own) date) Morphine unknown) Analogues Allergy (Intermediate, Verified 06/14/22 14:51) (unknown) (no (unknown) (unknown) Other Menstrual (units (unknown) date) Period: Other unknown) (unknown) (no (unknown) (unknown) Ovarian cyst (units (u nknown) date) unknown) (unknown) (no (unknown) (unknown) PFSH (units (unkno wn) date) unknown) (unknown) (no (unknown) (unknown) Painful (units (unkno wn) date) menstrual periods unknown) () (unknown) (no (unknown) (unknown) Patient: (units (unkno wn) date) [place]de unknown) MR#: [id number] (unknown) (no (unknown) (unknown) Position Sitting (units (unknown) date) unknown) (unknown) (no (unknown) (unknown) Pt here to (units (unkn own) date) follow-up on her unknown) hemorrhagic ovarian cyst pt was seen in the ED at (unknown) (no (unknown) (unknown) Reason For Visit (units (unknown) date) unknown) (unknown) (no (unknown) (unknown) S/P ACL (units (unkno wn) date) reconstruction unknown) (-06/08/21) (unknown) (no (unknown) (unknown) Signed By: (units (unk nown) date) unknown) (unknown) (no (unknown) (unknown) Smoking Status: (units (unknown) date) Current some day unknown) smoker (unknown) (no (unknown) (unknown) Social History (units (unknown) date) unknown) (unknown) (no (unknown) (unknown) Surgical History (units (unknown) date) (Reviewed unknown) 06/07/22 @ 05:36 by Tremaine Rae DO) (unknown) (no (unknown) (unknown) TOA (units (unkno [...] (unknown) (unknown) Visit Reasons: (units (unknown) date) Hemorrhagic unknown) Ovarian Cyst F/U (unknown) (no (unknown) (unknown) Vitals (units (unkno wn) date) unknown) (unknown) (no (unknown) (unknown) Weight 153 lb (units ( unknown) date) unknown) (unknown) (no (unknown) (unknown) [Rx Confirmed (units ( unknown) date) 06/14/22] unknown) (unknown) (no (unknown) (unknown) alcohol intake: (units (unknown) date) current unknown) (unknown) (no (unknown) (unknown) clindamycin HCl (units (unknown) date) 150 mg capsule unknown) 150 mg PO DAILY #30 caps 03/17/22 [Rx Confirmed (unknown) (no (unknown) (unknown) doxycycline (units (un known) date) Adverse Reaction unknown) (Intermediate, Verified 06/14/22 14:51) (unknown) (no (unknown) (unknown) have occurred. (units (unknown) date) If there are any unknown) questions, please contact the Medical Records (unknown) (no (unknown) (unknown) household (units (unkn own) date) members: unknown) friend(s) (unknown) (no (unknown) (unknown) hydrocodone 5 (units ( unknown) date) mg-acetaminophen unknown) 325 mg tablet 1 tab PO Q4-6H PRN pain #10 tabs (unknown) (no (unknown) (unknown) hydromorphone 4 (units (unknown) date) mg tablet unknown) (Dilaudid) 4 mg PO Q4-6H PRN pain #20 tabs 04/08/22 (unknown) (no (unknown) (unknown) ketorolac 10 mg (units (unknown) date) tablet 10 mg PO unknown) Q6H PRN pain #14 tabs 06/07/22 [Rx Confirmed (unknown) (no (unknown) (unknown) may occur. (units (unk nown) date) Occasional unknown) wrong-word or 'sound-alike' substitutions may have (unknown) (no (unknown) (unknown) occurred due to (units (unknown) date) the inherent unknown) limitations of voice recognition software. Please (unknown) (no (unknown) (unknown) on 06/07 due to (units (unknown) date) extreme pain pt unknown) had a pelvic US and pelvic CT done (unknown) (no (unknown) (unknown) ondansetron 4 mg (units (unknown) date) disintegrating unknown) tablet 4 mg PO TID-QID PRN nausea and vomiting (unknown) (no (unknown) (unknown) oxycodone 5 mg (units (unknown) date) tablet 5 mg PO unknown) Q4H PRN pain #20 tabs 04/07/22 [Rx Confirmed (unknown) (no (unknown) (unknown) rash (units (unkno wn) date) unknown) (unknown) (no (unknown) (unknown) read the note (units ( unknown) date) carefully and unknown) recognize, using context, where these substitutions (unknown) (no (unknown) (unknown) software. (units (unkn own) date) Although every unknown) effort is made to edit content, cabinet abrasive sandblaster errors (unknown) (no (unknown) (unknown) vomitt (units (unkno wn) date) unknown) Result panel 557 (unknown) (no (unknown) (unknown) (no value) (units (unk nown) date) unknown) (unknown) (no (unknown) (unknown) #10 tabs 06/07/22 (units (unknown) date) [Rx Confirmed unknown) 06/14/22] (unknown) (no (unknown) (unknown) [id number] (units (unkno wn) date) unknown) (unknown) (no (unknown) (unknown) 1. A 4.0 x 5.3 x (units (unknown) date) 5.2 cm complex unknown) cystic mass in left adnexa.? Differential (unknown) (no (unknown) (unknown) 06/07/22 [Rx (units (u nknown) date) Confirmed unknown) 06/14/22] (unknown) (no (unknown) (unknown) 06/07/22. Labs (units (unknown) date) including CBC and unknown) CMP were normal. Imaging studies included (unknown) (no (unknown) (unknown) 06/14/22 (units (unkno wn) date) unknown) (unknown) (no (unknown) (unknown) 06/14/22] (units (unkn own) date) unknown) (unknown) (no (unknown) (unknown) 14:51 (units (unkno wn) date) unknown) (unknown) (no (unknown) (unknown) 2.? There is a (units (unknown) date) trace amount of unknown) free fluid in the cul-de-sac. (unknown) (no (unknown) (unknown) ? (units (unkno wn) date) unknown) (unknown) (no (unknown) (unknown) ABD/PELVIC CT (units ( unknown) date) which showed: unknown) (unknown) (no (unknown) (unknown) ABDOMEN: (units (unkno wn) date) unknown) (unknown) (no (unknown) (unknown) Abdominal Nodes:? (units (unknown) date) No retroperitoneal unknown) or mesenteric adenopathy by size criteria.? (unknown) (no (unknown) (unknown) Acne (-2016) (units (u nknown) date) unknown) (unknown) (no (unknown) (unknown) Adrenal Glands:? (units (unknown) date) Unremarkable.? ? unknown) (unknown) (no (unknown) (unknown) After the (units (unkn own) date) administration of unknown) oral and IV contrast, axial sections were acquired (unknown) (no (unknown) (unknown) Age/Sex: 21 / F (units (unknown) date) Date of Service: unknown) (unknown) (no (unknown) (unknown) Allergies (units (unkn own) date) unknown) (unknown) (no (unknown) (unknown) [place], [place] (units ( unknown) date) [id number] unknown) (unknown) (no (unknown) (unknown) Anesthesia (units (unk nown) date) unknown) (unknown) (no (unknown) (unknown) Attending Dr: (units ( unknown) date) Sushant Bryant MD unknown) (unknown) (no (unknown) (unknown) BMI 27.1 (units (unkno wn) date) unknown) (unknown) (no (unknown) (unknown) BP 110/62 (units (unkn own) date) unknown) (unknown) (no (unknown) (unknown) Biliary ducts:? (units (unknown) date) Unremarkable.? ? unknown) (unknown) (no (unknown) (unknown) Bladder:? (units (unkn own) date) Unremarkable.? ? unknown) (unknown) (no (unknown) (unknown) Blood Pressure (units (unknown) date) Location Rt unknown) brachial (unknown) (no (unknown) (unknown) Bones:? (units (unkno wn) date) Unremarkable.?? unknown) (unknown) (no (unknown) (unknown) COMPARISON:? (units (u nknown) date) [facility], unknown) US, US PELVIC COMPLETE, 06/07/2022, 5:30. (unknown) (no (unknown) (unknown) Chief Complaint (units (unknown) date) unknown) (unknown) (no (unknown) (unknown) Chief Complaint: (units (unknown) date) ED follow-up unknown) (unknown) (no (unknown) (unknown) Chlamydia (units (unkn own) date) infection () unknown) (unknown) (no (unknown) (unknown) : 2000 (units (unknown) date) Acct:[id number] unknown) (unknown) (no (unknown) (unknown) Dept at (units (unkno wn) date) . unknown) (unknown) (no (unknown) (unknown) Details: (units (unkno wn) date) unknown) (unknown) (no (unknown) (unknown) Documented By: (units (unknown) date) Sushant Bryant MD unknown) 06/14/22 1450 (unknown) (no (unknown) (unknown) Draft (units (unkno wn) date) unknown) (unknown) (no (unknown) (unknown) Endometriosis (units ( unknown) date) (-2020) unknown) (unknown) (no (unknown) (unknown) FINDINGS:? (units (unk nown) date) unknown) (unknown) (no (unknown) (unknown) [facility] unknown) (unknown) (no (unknown) (unknown) Gallbladder:? (units ( unknown) date) Unremarkable.? ? unknown) (unknown) (no (unknown) (unknown) Ade was seen in (units (unknown) date) the ED at [facility] for LLQ pain early on the morning of (unknown) (no (unknown) (unknown) Gynecology Visit (units (unknown) date) unknown) (unknown) (no (unknown) (unknown) HPI (units (unkno wn) date) unknown) (unknown) (no (unknown) (unknown) Heart:? No (units (unk nown) date) significant unknown) findings. (unknown) (no (unknown) (unknown) Heavy menstrual (units (unknown) date) period (-2018) unknown) (unknown) (no (unknown) (unknown) Height 5 ft 3 in (units (unknown) date) unknown) (unknown) (no (unknown) (unknown) IMPRESSION:? (units (u nknown) date) unknown) (unknown) (no (unknown) (unknown) INDICATIONS:? (units ( unknown) date) severe LLQ pain, unknown) recent pelvic surgery, hx abscess (unknown) (no (unknown) (unknown) Image quality:? (units (unknown) date) Excellent.? unknown) (unknown) (no (unknown) (unknown) Intake Note: (units (u nknown) date) unknown) (unknown) (no (unknown) (unknown) Intake performed (units (unknown) date) by: Perry Mancilla unknown) (unknown) (no (unknown) (unknown) Intake (units (unkno wn) date) unknown) (unknown) (no (unknown) (unknown) Intake- Clincial (units (unknown) date) Staff unknown) (unknown) (no (unknown) (unknown) Irregular (units (unkn own) date) menstrual cycle unknown) (-2020) (unknown) (no (unknown) (unknown) Kidneys and (units (un known) date) Ureters:? unknown) Unremarkable.? ? (unknown) (no (unknown) (unknown) Last Menstural (units (unknown) date) Cycle + Details unknown) (unknown) (no (unknown) (unknown) Liver:? (units (unkno wn) date) Unremarkable.? ? unknown) (unknown) (no (unknown) (unknown) Loc: [facility] (units (unkno wn) date) unknown) (unknown) (no (unknown) (unknown) Lung bases:? (units (u nknown) date) Unremarkable.? ? unknown) (unknown) (no (unknown) (unknown) Lymphangioma (units (u nknown) date) unknown) (unknown) (no (unknown) (unknown) Medical History (units (unknown) date) (Reviewed 06/07/22 unknown) @ 05:36 by Tremaine Rae DO) (unknown) (no (unknown) (unknown) Medications (units (un known) date) unknown) (unknown) (no (unknown) (unknown) Miscellaneous: No (units (unknown) date) inguinal hernias unknown) are seen. ? ? (unknown) (no (unknown) (unknown) Opioids - (units (unkn own) date) Morphine Analogues unknown) Allergy (Intermediate, Verified 06/14/22 14:51) (unknown) (no (unknown) (unknown) Other Menstrual (units (unknown) date) Period: Other unknown) (unknown) (no (unknown) (unknown) Ovarian cyst (units (u nknown) date) unknown) (unknown) (no (unknown) (unknown) PELVIS: (units (unkno wn) date) unknown) (unknown) (no (unknown) (unknown) PFSH (units (unkno wn) date) unknown) (unknown) (no (unknown) (unknown) PROCEDURE:? CT (units (unknown) date) ABDOMEN PELVIS W unknown) CON (unknown) (no (unknown) (unknown) Painful menstrual (units (unknown) date) periods (-2020) unknown) (unknown) (no (unknown) (unknown) Pancreas:? (units (unk nown) date) Unremarkable.? ? unknown) (unknown) (no (unknown) (unknown) Patient: (units (unkno wn) date) Ade Vidales unknown) MR#: [id number] (unknown) (no (unknown) (unknown) Pelvic Nodes: No (units (unknown) date) enlarged lymph unknown) nodes.? (unknown) (no (unknown) (unknown) Pelvic Organs:? (units (unknown) date) Unremarkable.? unknown) Uterus is normal.? There is a complex cystic mass (unknown) (no (unknown) (unknown) Pelvic US (units (unkn own) date) performed shortly unknown) thereafter showed: (unknown) (no (unknown) (unknown) Peritoneum:? No (units (unknown) date) abnormal unknown) intraperitoneal fluid.? No free air.? (unknown) (no (unknown) (unknown) Position Sitting (units (unknown) date) unknown) (unknown) (no (unknown) (unknown) Pt here to (units (unkn own) date) follow-up on her unknown) hemorrhagic ovarian cyst pt was seen in the ED at (unknown) (no (unknown) (unknown) Reason For Visit (units (unknown) date) unknown) (unknown) (no (unknown) (unknown) S/P ACL (units (unkno wn) date) reconstruction unknown) (-06/08/21) (unknown) (no (unknown) (unknown) Signed By: (units (unk nown) date) unknown) (unknown) (no (unknown) (unknown) Smoking Status: (units (unknown) date) Current some day unknown) smoker (unknown) (no (unknown) (unknown) Social History (units (unknown) date) unknown) (unknown) (no (unknown) (unknown) Spleen:? (units (unkno wn) date) Unremarkable.? ? unknown) (unknown) (no (unknown) (unknown) Stomach and (units (un known) date) Bowel:? Stomach, unknown) small bowel loops, and colon are unremarkable.? (unknown) (no (unknown) (unknown) Surgical History (units (unknown) date) (Reviewed 06/07/22 unknown) @ 05:36 by Tremaine Rae DO) (unknown) (no (unknown) (unknown) TECHNIQUE:? (units (un known) date) unknown) (unknown) (no (unknown) (unknown) TOA (tubo-ovarian (units (unknown) date) abscess) unknown) (-06/28/21) (unknown) (no (unknown) (unknown) There is a (units (unk nown) date) unknown) (unknown) (no (unknown) (unknown) This note may (units ( unknown) date) have been all or unknown) partially generated using voice recognition (unknown) (no (unknown) (unknown) Tobacco + (units (unkn own) date) Substance Use unknown) (unknown) (no (unknown) (unknown) Tobacco Status (units (unknown) date) unknown) (unknown) (no (unknown) (unknown) Ventral Wall: ? (units (unknown) date) No hernia.? unknown) (unknown) (no (unknown) (unknown) Vessels:? Aorta (units (unknown) date) and inferior vena unknown) cava are normal in size.? (unknown) (no (unknown) (unknown) Visit Reasons: (units (unknown) date) Hemorrhagic unknown) Ovarian Cyst F/U (unknown) (no (unknown) (unknown) Vitals (units (unkno wn) date) unknown) (unknown) (no (unknown) (unknown) Weight 153 lb (units ( unknown) date) unknown) (unknown) (no (unknown) (unknown) [Rx Confirmed (units ( unknown) date) 06/14/22] unknown) (unknown) (no (unknown) (unknown) adjustment (units (unk nown) date) unknown) (unknown) (no (unknown) (unknown) alcohol intake: (units (unknown) date) current unknown) (unknown) (no (unknown) (unknown) amount of free (units (unknown) date) fluid in the unknown) cul-de-sac. (unknown) (no (unknown) (unknown) clindamycin HCl (units (unknown) date) 150 mg capsule 150 unknown) mg PO DAILY #30 caps 03/17/22 [Rx Confirmed (unknown) (no (unknown) (unknown) diagnoses (units (unkn own) date) unknown) (unknown) (no (unknown) (unknown) doxycycline (units (un known) date) Adverse Reaction unknown) (Intermediate, Verified 06/14/22 14:51) (unknown) (no (unknown) (unknown) from the (units (unkno wn) date) unknown) (unknown) (no (unknown) (unknown) gynecological (units ( unknown) date) follow-up.? unknown) (unknown) (no (unknown) (unknown) have occurred. If (units (unknown) date) there are any unknown) questions, please contact the Medical Records (unknown) (no (unknown) (unknown) household (units (unkn own) date) members: friend(s) unknown) (unknown) (no (unknown) (unknown) hydrocodone 5 (units ( unknown) date) mg-acetaminophen unknown) 325 mg tablet 1 tab PO Q4-6H PRN pain #10 tabs (unknown) (no (unknown) (unknown) hydromorphone 4 (units (unknown) date) mg tablet unknown) (Dilaudid) 4 mg PO Q4-6H PRN pain #20 tabs 04/08/22 (unknown) (no (unknown) (unknown) in the (units (unkno wn) date) unknown) (unknown) (no (unknown) (unknown) include complex (units (unknown) date) ovarian cyst and unknown) tubo-ovarian abscess.? Recommend pelvic (unknown) (no (unknown) (unknown) is a trace (units (unk nown) date) unknown) (unknown) (no (unknown) (unknown) ketorolac 10 mg (units (unknown) date) tablet 10 mg PO unknown) Q6H PRN pain #14 tabs 06/07/22 [Rx Confirmed (unknown) (no (unknown) (unknown) left adnexa (units (un known) date) measuring 4.0 x unknown) 5.3 x 5.2 cm.? Right ovary is unremarkable.? There (unknown) (no (unknown) (unknown) lung bases to the (units (unknown) date) pubic symphysis.? unknown) Coronal and sagittal reformats were (unknown) (no (unknown) (unknown) may occur. (units (unk nown) date) Occasional unknown) wrong-word or 'sound-alike' substitutions may have (unknown) (no (unknown) (unknown) moderate amount (units (unknown) date) of stool in colon. unknown) (unknown) (no (unknown) (unknown) occurred due to (units (unknown) date) the inherent unknown) limitations of voice recognition software. Please (unknown) (no (unknown) (unknown) of mA and/or kV (units (unknown) date) according to unknown) patient size. (unknown) (no (unknown) (unknown) on 06/07 due to (units (unknown) date) extreme pain pt unknown) had a pelvic US and pelvic CT done (unknown) (no (unknown) (unknown) ondansetron 4 mg (units (unknown) date) disintegrating unknown) tablet 4 mg PO TID-QID PRN nausea and vomiting (unknown) (no (unknown) (unknown) oxycodone 5 mg (units (unknown) date) tablet 5 mg PO Q4H unknown) PRN pain #20 tabs 04/07/22 [Rx Confirmed (unknown) (no (unknown) (unknown) performed.? For (units (unknown) date) unknown) (unknown) (no (unknown) (unknown) radiation dose (units (unknown) date) reduction, the unknown) following was used:? automated exposure control, (unknown) (no (unknown) (unknown) rash (units (unkno wn) date) unknown) (unknown) (no (unknown) (unknown) read the note (units ( unknown) date) carefully and unknown) recognize, using context, where these substitutions (unknown) (no (unknown) (unknown) software. (units (unkn own) date) Although every unknown) effort is made to edit content, cabinet abrasive sandblaster errors (unknown) (no (unknown) (unknown) ultrasound and (units (unknown) date) unknown) (unknown) (no (unknown) (unknown) vomitt (units (unkno wn) date) unknown) Result panel [id number] (unknown) (no (unknown) (unknown) (no value) (units (unk nown) date) unknown) (unknown) (no (unknown) (unknown) #10 tabs 06/07/22 (units (unknown) date) [Rx Confirmed unknown) 06/14/22] (unknown) (no (unknown) (unknown) (1) Hemorrhagic (units (unknown) date) cyst of left unknown) ovary: (unknown) (no (unknown) (unknown) (2) Chronic (units (un known) date) pelvic pain in unknown) female: (unknown) (no (unknown) (unknown) [id number] (units (unkno wn) date) unknown) (unknown) (no (unknown) (unknown) 1. A 4.0 x 5.3 x (units (unknown) date) 5.2 cm complex unknown) cystic mass in left adnexa.? Differential (unknown) (no (unknown) (unknown) 1. The left ovary (units (unknown) date) is enlarged.? unknown) There is a complex cyst in the left ovary.? (unknown) (no (unknown) (unknown) 06/07/22 [Rx (units (u nknown) date) Confirmed unknown) 06/14/22] (unknown) (no (unknown) (unknown) 06/07/22. Labs (units (unknown) date) including CBC and unknown) CMP were normal. Imaging studies included (unknown) (no (unknown) (unknown) 06/14/22 (units (unkno wn) date) unknown) (unknown) (no (unknown) (unknown) 06/14/22] (units (unkn own) date) unknown) (unknown) (no (unknown) (unknown) 14:51 (units (unkno wn) date) unknown) (unknown) (no (unknown) (unknown) 2. Normal right (units (unknown) date) ovary and uterus. unknown) (unknown) (no (unknown) (unknown) 2.? There is a (units (unknown) date) trace amount of unknown) free fluid in the cul-de-sac. (unknown) (no (unknown) (unknown) ? (units (unkno wn) date) unknown) (unknown) (no (unknown) (unknown) ?? (units (unkno wn) date) unknown) (unknown) (no (unknown) (unknown) ABD/PELVIC CT (units ( unknown) date) which showed: unknown) (unknown) (no (unknown) (unknown) ABDOMEN: (units (unkno wn) date) unknown) (unknown) (no (unknown) (unknown) Abdominal Nodes:? (units (unknown) date) No retroperitoneal unknown) or mesenteric adenopathy by size criteria.? (unknown) (no (unknown) (unknown) Acne (-2016) (units (u nknown) date) unknown) (unknown) (no (unknown) (unknown) Additional (units (unkn own) date) endovaginal unknown) scanning was necessary due to incomplete visualization of (unknown) (no (unknown) (unknown) Adrenal Glands:? (units (unknown) date) Unremarkable.? ? unknown) (unknown) (no (unknown) (unknown) Affect: normal (units (unknown) date) affect unknown) (unknown) (no (unknown) (unknown) After the (units (unkn own) date) administration of unknown) oral and IV contrast, axial sections were acquired (unknown) (no (unknown) (unknown) Age/Sex: 21 / F (units (unknown) date) Date of Service: unknown) (unknown) (no (unknown) (unknown) Allergies (units (unkn own) date) unknown) (unknown) (no (unknown) (unknown) [place] (units ( unknown) date) [id number] unknown) (unknown) (no (unknown) (unknown) Anesthesia (units [...] cooperative unknown) (unknown) (no (unknown) (unknown) BMI 27.1 (units (unkno wn) date) unknown) (unknown) (no (unknown) (unknown) BP 110/62 (units (unkn own) date) unknown) (unknown) (no (unknown) (unknown) Biliary ducts:? (units (unknown) date) Unremarkable.? ? unknown) (unknown) (no (unknown) (unknown) Bladder:? (units (unkn own) date) Unremarkable.? ? unknown) (unknown) (no (unknown) (unknown) Blood Pressure (units (unknown) date) Location Rt unknown) brachial (unknown) (no (unknown) (unknown) Bones:? (units (unkno wn) date) Unremarkable.?? unknown) (unknown) (no (unknown) (unknown) COMPARISON:? (units (u nknown) date) [facility], unknown) CT, CT ABDOMEN PELVIS W CON, 06/07/2022, 3:28. (unknown) (no (unknown) (unknown) COMPARISON:? (units (u nknown) date) [facility], unknown) US, US PELVIC COMPLETE, 06/07/2022, 5:30. (unknown) (no (unknown) (unknown) Chief Complaint (units (unknown) date) unknown) (unknown) (no (unknown) (unknown) Chief Complaint: (units (unknown) date) ED follow-up unknown) (unknown) (no (unknown) (unknown) Chlamydia (units (unkn own) date) infection () unknown) (unknown) (no (unknown) (unknown) Conjunctivae: (units ( unknown) date) conjunctivae unknown) normal (unknown) (no (unknown) (unknown) Const (units (unkno wn) date) unknown) (unknown) (no (unknown) (unknown) : 2000 (units (unknown) date) Acct:[id number] unknown) (unknown) (no (unknown) (unknown) Date of Last (units (u nknown) date) Menstrual Period: unknown) 05/21/22 (unknown) (no (unknown) (unknown) Dept at (units (unkno wn) date) . unknown) (unknown) (no (unknown) (unknown) Details: (units (unkno wn) date) unknown) (unknown) (no (unknown) (unknown) Documented By: (units (unknown) date) Sushant Bryant MD unknown) 06/14/22 1450 (unknown) (no (unknown) (unknown) Draft (units (unkno [...] wn) date) unknown) (unknown) (no (unknown) (unknown) FINDINGS:? (units (unk nown) date) unknown) (unknown) (no (unknown) (unknown) Face and sinus: (units (unknown) date) face symmetric unknown) (unknown) (no (unknown) (unknown) [facility] ([facility] date[facility]) (unknown) (no (unknown) (unknown) (units (unkno wn) date) unknown) (unknown) (no (unknown) (unknown) Gallbladder:? (units ( unknown) date) Unremarkable.? ? unknown) (unknown) (no (unknown) (unknown) General: (units (o wn) date) appearance normal, unknown) both eyes and all related structures (unknown) (no (unknown) (unknown) General: (units (unkno wn) date) cooperative, unknown) comfortable and no acute distress (unknown) (no (unknown) (unknown) General: deferred (units (unknown) date) unknown) (unknown) (no (unknown) (unknown) Ade was seen in (units (unknown) date) the ED at [facility] for LLQ pain early on the morning of (unknown) (no (unknown) (unknown) Gynecology Visit (units (unknown) date) unknown) (unknown) (no (unknown) (unknown) HENMT (units (unkno wn) date) unknown) (unknown) (no (unknown) (unknown) HPI (units (unkno wn) date) unknown) (unknown) (no (unknown) (unknown) Head: normal to (units (unknown) date) inspection, unknown) normocephalic and atraumatic (unknown) (no (unknown) (unknown) Heart:? No (units (unk n) date) significant unknown) findings. (unknown) (no (unknown) (unknown) Heavy menstrual (units (unknown) date) period (-2019) unknown) (unknown) (no (unknown) (unknown) Height 5 ft 3 in (units (unknown) date) unknown) (unknown) (no (unknown) (unknown) IMPRESSION:? (units (u nknown) date) unknown) (unknown) (no (unknown) (unknown) INDICATIONS:? (units ( unknown) date) LEFT LOWER unknown) QUADRANT PAIN. FOLLOW UP CT. (unknown) (no (unknown) (unknown) INDICATIONS:? (units ( unknown) date) severe LLQ pain, unknown) recent pelvic surgery, hx abscess (unknown) (no (unknown) (unknown) Image quality:? (units (unknown) date) Excellent.? unknown) (unknown) (no (unknown) (unknown) Intake Note: (units (u nknown) date) unknown) (unknown) (no (unknown) (unknown) Intake performed (units (unknown) date) by: Perry Mancilla unknown) (unknown) (no (unknown) (unknown) Intake (units (unkno wn) date) unknown) (unknown) (no (unknown) (unknown) Intake- Clincial (units (unknown) date) Staff unknown) (unknown) (no (unknown) (unknown) Irregular (units (unkn own) date) menstrual cycle unknown) () (unknown) (no (unknown) (unknown) Judgment: (units (unkn own) date) judgment good unknown) (unknown) (no (unknown) (unknown) Kidneys and (units (un known) date) Ureters:? unknown) Unremarkable.? ? (unknown) (no (unknown) (unknown) Last Menstural (units (unknown) date) Cycle + Details unknown) (unknown) (no (unknown) (unknown) Liver:? (units (unkno wn) date) Unremarkable.? ? unknown) (unknown) (no (unknown) (unknown) Loc: [facility] (units (unkno wn) date) unknown) (unknown) (no (unknown) (unknown) Lung bases:? (units (u nknown) date) Unremarkable.? ? unknown) (unknown) (no (unknown) (unknown) Lymphangioma (units (u nknown) date) unknown) (unknown) (no (unknown) (unknown) Medical History (units (unknown) date) (Reviewed 06/07/22 unknown) @ 05:36 by Tremaine Rae DO) (unknown) (no (unknown) (unknown) Medications (units (un known) date) unknown) (unknown) (no (unknown) (unknown) Mental Status: (units (unknown) date) mental status unknown) grossly normal (unknown) (no (unknown) (unknown) Miscellaneous: No (units (unknown) date) inguinal hernias unknown) are seen. ? ? (unknown) (no (unknown) (unknown) Mood: congruent (units [...] date) Morphine Analogues unknown) Allergy (Intermediate, Verified 06/14/22 14:51) (unknown) (no (unknown) (unknown) Orientation: (units (u nknown) date) alert and oriented unknown) x3 (unknown) (no (unknown) (unknown) Other Menstrual (units (unknown) date) Period: Other unknown) (unknown) (no (unknown) (unknown) Other:? No (units (unk nown) date) pathologic free unknown) abdominal or pelvic fluid. (unknown) (no (unknown) (unknown) Ovarian cyst (units (u nknown) date) unknown) (unknown) (no (unknown) (unknown) Ovaries:? The (units (u nknown) date) right ovary unknown) measures 3.0 x 1.5 x 2.7 cm, with a calculated ovarian (unknown) (no (unknown) (unknown) PELVIS: (units (unkno wn) date) unknown) (unknown) (no (unknown) (unknown) PFSH (units (unkno wn) date) unknown) (unknown) (no (unknown) (unknown) PROCEDURE:? CT (units (unknown) date) ABDOMEN PELVIS W unknown) CON (unknown) (no (unknown) (unknown) PROCEDURE:? US (units (unknown) date) PELVIC COMPLETE unknown) (unknown) (no (unknown) (unknown) Painful menstrual (units (unknown) date) periods (-2020) unknown) (unknown) (no (unknown) (unknown) Pancreas:? (units (unk nown) date) Unremarkable.? ? unknown) (unknown) (no (unknown) (unknown) Patient: (units (unkno wn) date) Ade Vidales E unknown) MR#: [id number] (unknown) (no (unknown) (unknown) Pelvic Nodes: No (units (unknown) date) enlarged lymph unknown) nodes.? (unknown) (no (unknown) (unknown) Pelvic Organs:? (units (unknown) date) Unremarkable.? unknown) Uterus is normal.? There is a complex cystic mass (unknown) (no (unknown) (unknown) Pelvic US (units (unkn own) date) performed shortly unknown) thereafter showed: (unknown) (no (unknown) (unknown) Peritoneum:? No (units (unknown) date) abnormal unknown) intraperitoneal fluid.? No free air.? (unknown) (no (unknown) (unknown) Position Sitting (units (unknown) date) unknown) (unknown) (no (unknown) (unknown) Problem-specific (units (unknown) date) ROS positives unknown) included with the HPI (unknown) (no (unknown) (unknown) Psych (units (unkno wn) date) unknown) (unknown) (no (unknown) (unknown) Pt here to (units (unkn own) date) follow-up on her unknown) hemorrhagic ovarian cyst pt was seen in the ED at (unknown) (no (unknown) (unknown) ROS Narrative (units ( unknown) date) unknown) (unknown) (no (unknown) (unknown) ROS Narrative: (units (unknown) date) unknown) (unknown) (no (unknown) (unknown) ROS (units (unkno wn) date) unknown) (unknown) (no (unknown) (unknown) Real-time (units (unkn own) date) scanning was unknown) performed of the pelvic organs, with image (unknown) (no (unknown) (unknown) Reason For Visit (units (unknown) date) unknown) (unknown) (no (unknown) (unknown) Recommend (units (unkn own) date) unknown) (unknown) (no (unknown) (unknown) Resp (units (unkno wn) date) unknown) (unknown) (no (unknown) (unknown) S/P ACL (units (unkno wn) date) reconstruction unknown) (-06/08/21) (unknown) (no (unknown) (unknown) Sclera: sclerae (units (unknown) date) normal unknown) (unknown) (no (unknown) (unknown) Signed By: (units (unk nown) date) unknown) (unknown) (no (unknown) (unknown) Since her ED (units (u nknown) date) visit on unknown) 06/07/2022, the patient's symptoms have significantly (unknown) (no (unknown) (unknown) Smoking Status: (units (unknown) date) Current some day unknown) smoker (unknown) (no (unknown) (unknown) Social History (units (unknown) date) unknown) (unknown) (no (unknown) (unknown) Speech and (units (unk nown) date) Movement: speech unknown) and movement normal (unknown) (no (unknown) (unknown) Spleen:? (units (unkno wn) date) Unremarkable.? ? unknown) (unknown) (no (unknown) (unknown) Status: Acute (units ( unknown) date) unknown) (unknown) (no (unknown) (unknown) Stomach and (units (un known) date) Bowel:? Stomach, unknown) small bowel loops, and colon are unremarkable.? (unknown) (no (unknown) (unknown) Surgical History (units (unknown) date) (Reviewed 06/07/22 unknown) @ 05:36 by Tremaine Rae DO) (unknown) (no (unknown) (unknown) TECHNIQUE:? (units (un known) date) unknown) (unknown) (no (unknown) (unknown) TOA (tubo-ovarian (units (unknown) date) abscess) unknown) (-06/28/21) (unknown) (no (unknown) (unknown) There is a (units (unk nown) date) unknown) (unknown) (no (unknown) (unknown) This [...] (unknown) date) unknown) (unknown) (no (unknown) (unknown) Uterus:? Uterus (units (unknown) date) is anteverted and unknown) normal in size at 7.1 x 5.2 x 3.8 cm. The (unknown) (no (unknown) (unknown) Ventral Wall: ? (units (unknown) date) No hernia.? unknown) (unknown) (no (unknown) (unknown) Vessels:? Aorta (units (unknown) date) and inferior vena unknown) cava are normal in size.? (unknown) (no (unknown) (unknown) Visit Reasons: (units (unknown) date) Hemorrhagic unknown) Ovarian Cyst F/U (unknown) (no (unknown) (unknown) Vitals (units (unkno wn) date) unknown) (unknown) (no (unknown) (unknown) Weight 153 lb (units ( unknown) date) unknown) (unknown) (no (unknown) (unknown) [Rx Confirmed (units ( unknown) date) 06/14/22] unknown) (unknown) (no (unknown) (unknown) adjustment (units (unk nown) date) unknown) (unknown) (no (unknown) (unknown) adnexal and (units (un known) date) endometrial unknown) structures by transabdominal scanning.? (unknown) (no (unknown) (unknown) alcohol intake: (units (unknown) date) current unknown) (unknown) (no (unknown) (unknown) amount of free (units (unknown) date) fluid in the unknown) cul-de-sac. (unknown) (no (unknown) (unknown) clindamycin HCl (units (unknown) date) 150 mg capsule 150 unknown) mg PO DAILY #30 caps 03/17/22 [Rx Confirmed (unknown) (no (unknown) (unknown) clinical (units (unkno wn) date) correlation.? unknown) After adequate treatment, a follow-up ultrasound is (unknown) (no (unknown) (unknown) diagnoses (units (unkn own) date) unknown) (unknown) (no (unknown) (unknown) documentation.? (units (unknown) date) unknown) (unknown) (no (unknown) (unknown) doxycycline (units (un known) date) Adverse Reaction unknown) (Intermediate, Verified 06/14/22 14:51) (unknown) (no (unknown) (unknown) each (units (unkno wn) date) unknown) (unknown) (no (unknown) (unknown) fluid filled (units (u nknown) date) structure adjacent unknown) to the left ovary.? Differential diagnoses are (unknown) (no (unknown) (unknown) from the (units (unkno wn) date) unknown) (unknown) (no (unknown) (unknown) gynecological (units ( unknown) date) follow-up.? unknown) (unknown) (no (unknown) (unknown) have occurred. If (units (unknown) date) there are any unknown) questions, please contact the Medical Records (unknown) (no (unknown) (unknown) hemorrhagic (units (un known) date) ovarian cyst unknown) versus hydrosalpinx and tubo-ovarian abscess.? (unknown) (no (unknown) (unknown) homogeneous. ? (units (unknown) date) The endometrium unknown) measures 10.9 mm combined thickness. (unknown) (no (unknown) (unknown) household (units (unkn own) date) members: friend(s) unknown) (unknown) (no (unknown) (unknown) hydrocodone 5 (units ( unknown) date) mg-acetaminophen unknown) 325 mg tablet 1 tab PO Q4-6H PRN pain #10 tabs (unknown) (no (unknown) (unknown) hydromorphone 4 (units (unknown) date) mg tablet unknown) (Dilaudid) 4 mg PO Q4-6H PRN pain #20 tabs 04/08/22 (unknown) (no (unknown) (unknown) improved but she (units (unknown) date) continues to have unknown) mild LLQ pain with certain activities but (unknown) (no (unknown) (unknown) in the (units (unkno wn) date) unknown) (unknown) (no (unknown) (unknown) include complex (units (unknown) date) ovarian cyst and unknown) tubo-ovarian abscess.? Recommend pelvic (unknown) (no (unknown) (unknown) is a trace (units (unk nown) date) unknown) (unknown) (no (unknown) (unknown) ketorolac 10 mg (units (unknown) date) tablet 10 mg PO unknown) Q6H PRN pain #14 tabs 06/07/22 [Rx Confirmed (unknown) (no (unknown) (unknown) left adnexa (units (un known) date) measuring 4.0 x unknown) 5.3 x 5.2 cm.? Right ovary is unremarkable.? There (unknown) (no (unknown) (unknown) lung bases to the (units (unknown) date) pubic symphysis.? unknown) Coronal and sagittal reformats were (unknown) (no (unknown) (unknown) may occur. (units (unk nown) date) Occasional unknown) wrong-word or 'sound-alike' substitutions may have (unknown) (no (unknown) (unknown) moderate amount (units (unknown) date) of stool in colon. unknown) (unknown) (no (unknown) (unknown) myometrium is (units ( unknown) date) unknown) (unknown) (no (unknown) (unknown) occurred due to (units (unknown) date) the inherent unknown) limitations of voice recognition software. Please (unknown) (no (unknown) (unknown) of 6.3 cc. The (units (unknown) date) left ovary unknown) measures 5.1 x 4.5 x 4 point cm, with a calculated (unknown) (no (unknown) (unknown) of mA and/or kV (units (unknown) date) according to unknown) patient size. (unknown) (no (unknown) (unknown) on 06/07 due to (units (unknown) date) extreme pain pt unknown) had a pelvic US and pelvic CT done (unknown) (no (unknown) (unknown) ondansetron 4 mg (units (unknown) date) disintegrating unknown) tablet 4 mg PO TID-QID PRN nausea and vomiting (unknown) (no (unknown) (unknown) otherwise is (units (u nknown) date) doing well. unknown) (unknown) (no (unknown) (unknown) ovarian (units (unkno wn) date) unknown) (unknown) (no (unknown) (unknown) ovary, (units (unkno wn) date) unknown) (unknown) (no (unknown) (unknown) ovary.? No (units (unk nown) date) adnexal masses are unknown) seen. (unknown) (no (unknown) (unknown) oxycodone 5 mg (units (unknown) date) tablet 5 mg PO Q4H unknown) PRN pain #20 tabs 04/07/22 [Rx Confirmed (unknown) (no (unknown) (unknown) performed.? For (units (unknown) date) unknown) (unknown) (no (unknown) (unknown) radiation dose (units (unknown) date) reduction, the unknown) following was used:? automated exposure control, (unknown) (no (unknown) (unknown) rash (units (unkno wn) date) unknown) (unknown) (no (unknown) (unknown) read the note (units ( unknown) date) carefully and unknown) recognize, using context, where these substitutions (unknown) (no (unknown) (unknown) sentences (units (unkn own) date) unknown) (unknown) (no (unknown) (unknown) software. (units (unkn own) date) Although every unknown) effort is made to edit content, cabinet abrasive sandblaster errors (unknown) (no (unknown) (unknown) suggested. (units (unk nown) date) unknown) (unknown) (no (unknown) (unknown) the (units (unkno wn) date) unknown) (unknown) (no (unknown) (unknown) there is anechoic (units (unknown) date) fluid filled unknown) structure.? Less than 12 follicles can be seen in (unknown) (no (unknown) (unknown) ultrasound and (units (unknown) date) unknown) (unknown) (no (unknown) (unknown) volume of 59.1 (units ( unknown) date) cc.? There is a unknown) complex cyst in left ovary.? Superior to the left (unknown) (no (unknown) (unknown) volume (units (unkno wn) date) unknown) (unknown) (no (unknown) (unknown) vomitt (units (unkno wn) date) unknown) Result panel 559 (unknown) (no (unknown) (unknown) (no value) (units (unk nown) date) unknown) (unknown) (no (unknown) (unknown) #10 tabs 06/07/22 (units (unknown) date) [Rx Confirmed unknown) 06/14/22] (unknown) (no (unknown) (unknown) (1) Hemorrhagic (units (unknown) date) cyst of left unknown) ovary: (unknown) (no (unknown) (unknown) (2) Chronic (units (un known) date) pelvic pain in unknown) female: (unknown) (no (unknown) (unknown) [id number] (units (unkno wn) date) unknown) (unknown) (no (unknown) (unknown) 1. A 4.0 x 5.3 x (units (unknown) date) 5.2 cm complex unknown) cystic mass in left adnexa.? Differential (unknown) (no (unknown) (unknown) 1. The left ovary (units (unknown) date) is enlarged.? unknown) There is a complex cyst in the left ovary.? (unknown) (no (unknown) (unknown) 06/07/22 [Rx (units (u nknown) date) Confirmed unknown) 06/14/22] (unknown) (no (unknown) (unknown) 06/07/22. Labs (units (unknown) date) including CBC and unknown) CMP were normal. Imaging studies included (unknown) (no (unknown) (unknown) 06/14/22 1728 (units ( unknown) date) unknown) (unknown) (no (unknown) (unknown) 06/14/22 (units (unkno wn) date) unknown) (unknown) (no (unknown) (unknown) 06/14/22] (units (unkn own) date) unknown) (unknown) (no (unknown) (unknown) 14:51 (units (unkno wn) date) unknown) (unknown) (no (unknown) (unknown) 2. Normal right (units (unknown) date) ovary and uterus. unknown) (unknown) (no (unknown) (unknown) 2.? There is a (units (unknown) date) trace amount of unknown) free fluid in the cul-de-sac. (unknown) (no (unknown) (unknown) ? (units (unkno wn) date) unknown) (unknown) (no (unknown) (unknown) ?? (units (unkno wn) date) unknown) (unknown) (no (unknown) (unknown) ABD/PELVIC CT (units ( unknown) date) which showed: unknown) (unknown) (no (unknown) (unknown) ABDOMEN: (units (unkno wn) date) unknown) (unknown) (no (unknown) (unknown) Abdominal Nodes:? (units (unknown) date) No retroperitoneal unknown) or mesenteric adenopathy by size criteria.? (unknown) (no (unknown) (unknown) Acne (-2016) (units (u nknown) date) unknown) (unknown) (no (unknown) (unknown) Additional (units (unkn own) date) endovaginal unknown) scanning was necessary due to incomplete visualization of (unknown) (no (unknown) (unknown) Adrenal Glands:? (units (unknown) date) Unremarkable.? ? unknown) (unknown) (no (unknown) (unknown) Affect: normal (units (unknown) date) affect unknown) (unknown) (no (unknown) (unknown) After the (units (unkn own) date) administration of unknown) oral and IV contrast, axial sections were acquired (unknown) (no (unknown) (unknown) Age/Sex: 21 / F (units (unknown) date) Date of Service: unknown) (unknown) (no (unknown) (unknown) Allergies (units (unkn own) date) unknown) (unknown) (no (unknown) (unknown) [place], [place] (units ( unknown) date) [id number] unknown) (unknown) (no (unknown) (unknown) Anesthesia (units [...] cooperative unknown) (unknown) (no (unknown) (unknown) BMI 27.1 (units (unkno wn) date) unknown) (unknown) (no (unknown) (unknown) BP 110/62 (units (unkn own) date) unknown) (unknown) (no (unknown) (unknown) Biliary ducts:? (units (unknown) date) Unremarkable.? ? unknown) (unknown) (no (unknown) (unknown) Bladder:? (units (unkn own) date) Unremarkable.? ? unknown) (unknown) (no (unknown) (unknown) Blood Pressure (units (unknown) date) Location Rt unknown) brachial (unknown) (no (unknown) (unknown) Bones:? (units (unkno wn) date) Unremarkable.?? unknown) (unknown) (no (unknown) (unknown) COMPARISON:? (units (u nknown) date) [facility], unknown) CT, CT ABDOMEN PELVIS W CON, 06/07/2022, 3:28. (unknown) (no (unknown) (unknown) COMPARISON:? (units (u nknown) date) [facility], unknown) US, US PELVIC COMPLETE, 06/07/2022, 5:30. (unknown) (no (unknown) (unknown) Chief Complaint (units (unknown) date) unknown) (unknown) (no (unknown) (unknown) Chief Complaint: (units (unknown) date) ED follow-up unknown) (unknown) (no (unknown) (unknown) Chlamydia (units (unkn own) date) infection () unknown) (unknown) (no (unknown) (unknown) Conjunctivae: (units ( unknown) date) conjunctivae unknown) normal (unknown) (no (unknown) (unknown) Const (units (unkno wn) date) unknown) (unknown) (no (unknown) (unknown) Counseling and (units (unknown) date) educating the unknown) patient/family/car egiver: 10 (unknown) (no (unknown) (unknown) : 2000 (units (unknown) date) Acct:[id number] unknown) (unknown) (no (unknown) (unknown) Date of Last (units (u nknown) date) Menstrual Period: unknown) 05/21/22 (unknown) (no (unknown) (unknown) Dept at (units (unkno wn) date) . unknown) (unknown) (no (unknown) (unknown) Details: (units (unkno wn) date) unknown) (unknown) (no (unknown) (unknown) Documented By: (units (unknown) date) Sushant Bryant MD unknown) 06/14/22 1450 (unknown) (no (unknown) (unknown) Documenting (units (un [...] wn) date) unknown) (unknown) (no (unknown) (unknown) FINDINGS:? (units (unk nown) date) unknown) (unknown) (no (unknown) (unknown) Face and sinus: (units (unknown) date) face symmetric unknown) (unknown) (no (unknown) (unknown) [facility]) (unknown) (no (unknown) (unknown) (units (unkno wn) date) unknown) (unknown) (no (unknown) (unknown) Gallbladder:? (units ( unknown) date) Unremarkable.? ? unknown) (unknown) (no (unknown) (unknown) General: (units (unkno wn) date) appearance normal, unknown) both eyes and all related structures (unknown) (no (unknown) (unknown) General: (units (unkno wn) date) cooperative, unknown) comfortable and no acute distress (unknown) (no (unknown) (unknown) General: deferred (units (unknown) date) unknown) (unknown) (no (unknown) (unknown) Given the (units (unkn own) date) patient's unknown) significant improvement since 06/07/2022, no emergent (unknown) (no (unknown) (unknown) Ade was [facility]units (unknown) date[facility] early on the morning of (unknown) (no (unknown) (unknown) Gynecology Visit (units (unknown) date) unknown) (unknown) (no (unknown) (unknown) HENMT (units (unkno wn) date) unknown) (unknown) (no (unknown) (unknown) HPI (units (unkno wn) date) unknown) (unknown) (no (unknown) (unknown) Head: normal to (units (unknown) date) inspection, unknown) normocephalic and atraumatic (unknown) (no (unknown) (unknown) Heart:? No (units (unk nown) date) significant unknown) findings. (unknown) (no (unknown) (unknown) Heavy menstrual (units (unknown) date) period (-2019) unknown) (unknown) (no (unknown) (unknown) Height 5 ft 3 in (units (unknown) date) unknown) (unknown) (no (unknown) (unknown) IMPRESSION:? (units (u nknown) date) unknown) (unknown) (no (unknown) (unknown) INDICATIONS:? (units ( unknown) date) LEFT LOWER unknown) QUADRANT PAIN. FOLLOW UP CT. (unknown) (no (unknown) (unknown) INDICATIONS:? (units ( unknown) date) severe LLQ pain, unknown) recent pelvic surgery, hx abscess (unknown) (no (unknown) (unknown) Image quality:? (units (unknown) date) Excellent.? unknown) (unknown) (no (unknown) (unknown) Intake Note: (units (u nknown) date) unknown) (unknown) (no (unknown) (unknown) Intake performed (units (unknown) date) by: Perry Mancilla unknown) (unknown) (no (unknown) (unknown) Intake (units (unkno wn) date) unknown) (unknown) (no (unknown) (unknown) Intake- Clincial (units (unknown) date) Staff unknown) (unknown) (no (unknown) (unknown) Irregular (units (unkn own) date) menstrual cycle unknown) () (unknown) (no (unknown) (unknown) Judgment: (units (unkn own) date) judgment good unknown) (unknown) (no (unknown) (unknown) Kidneys and (units (un known) date) Ureters:? unknown) Unremarkable.? ? (unknown) (no (unknown) (unknown) Last Menstural (units (unknown) date) Cycle + Details unknown) (unknown) (no (unknown) (unknown) Liver:? (units (unkno wn) date) Unremarkable.? ? unknown) (unknown) (no (unknown) (unknown) Loc: [facility] (units (unkno wn) date) unknown) (unknown) (no (unknown) (unknown) Lung bases:? (units (u nknown) date) Unremarkable.? ? unknown) (unknown) (no (unknown) (unknown) Lymphangioma (units (u nknown) date) unknown) (unknown) (no (unknown) (unknown) Medical History (units (unknown) date) (Reviewed 06/07/22 unknown) @ 05:36 by Tremaine Rae DO) (unknown) (no (unknown) (unknown) Medications (units (un known) date) unknown) (unknown) (no (unknown) (unknown) Mental Status: (units (unknown) date) mental status unknown) grossly normal (unknown) (no (unknown) (unknown) Miscellaneous: No (units (unknown) date) inguinal hernias unknown) are seen. ? ? (unknown) (no (unknown) (unknown) Mood: congruent (units (unknown) date) mood unknown) (unknown) (no (unknown) (unknown) Neck (units (unkno wn) date) unknown) (unknown) (no (unknown) (unknown) Neck: normal (units (u nknown) date) visual inspection unknown) (unknown) (no (unknown) (unknown) Nutritional (units (un known) date) Appearance: unknown) average body habitus (unknown) (no (unknown) (unknown) Obtaining and/or (units (unknown) date) reviewing unknown) separately obtained history: 5 (unknown) (no (unknown) (unknown) Opioids - (units (unkn own) date) Morphine Analogues unknown) Allergy (Intermediate, Verified 06/14/22 14:51) (unknown) (no (unknown) (unknown) Ordering (units (unkno [...] Period: Other unknown) (unknown) (no (unknown) (unknown) Other:? No (units (unk nown) date) pathologic free unknown) abdominal or pelvic fluid. (unknown) (no (unknown) (unknown) Ovarian cyst (units (u nknown) date) unknown) (unknown) (no (unknown) (unknown) Ovaries:? The (units (u nknown) date) right ovary unknown) measures 3.0 x 1.5 x 2.7 cm, with a calculated ovarian (unknown) (no (unknown) (unknown) PELVIS: (units (unkno wn) date) unknown) (unknown) (no (unknown) (unknown) PFSH (units (unkno wn) date) unknown) (unknown) (no (unknown) (unknown) PROCEDURE:? CT (units (unknown) date) ABDOMEN PELVIS W unknown) CON (unknown) (no (unknown) (unknown) PROCEDURE:? US (units (unknown) date) PELVIC COMPLETE unknown) (unknown) (no (unknown) (unknown) Painful menstrual (units (unknown) date) periods (-2020) unknown) (unknown) (no (unknown) (unknown) Pancreas:? (units (unk nown) date) Unremarkable.? ? unknown) (unknown) (no (unknown) (unknown) Patient will (units (u nknown) date) remain in contact unknown) regarding her status via the patient portal and (unknown) (no (unknown) (unknown) Patient: (units (unkno wn) date) Ade Vidales E unknown) MR#: [id number] (unknown) (no (unknown) (unknown) Pelvic Nodes: No (units (unknown) date) enlarged lymph unknown) nodes.? (unknown) (no (unknown) (unknown) Pelvic Organs:? (units (unknown) date) Unremarkable.? unknown) Uterus is normal.? There is a complex cystic mass (unknown) (no (unknown) (unknown) Pelvic US (units (unkn own) date) performed shortly unknown) thereafter showed: (unknown) (no (unknown) (unknown) Peritoneum:? No (units (unknown) date) abnormal unknown) intraperitoneal fluid.? No free air.? (unknown) (no (unknown) (unknown) Plan (units (unkno [...] unknown) (unknown) (no (unknown) (unknown) Pt here to (units (unkn own) date) follow-up on her unknown) hemorrhagic ovarian cyst pt was seen in the ED at (unknown) (no (unknown) (unknown) ROS Narrative (units ( unknown) date) unknown) (unknown) (no (unknown) (unknown) ROS Narrative: (units (unknown) date) unknown) (unknown) (no (unknown) (unknown) ROS (units (unkno wn) date) unknown) (unknown) (no (unknown) (unknown) Real-time (units (unkn own) date) scanning was unknown) performed of the pelvic organs, with image (unknown) (no (unknown) (unknown) Reason For Visit (units (unknown) date) unknown) (unknown) (no (unknown) (unknown) Recommend (units (unkn own) date) unknown) (unknown) (no (unknown) (unknown) Resp [...] wn) date) unknown) (unknown) (no (unknown) (unknown) Since her ED (units (u nknown) date) visit on unknown) 06/07/2022, the patient's symptoms have significantly (unknown) (no (unknown) (unknown) Smoking Status: (units (unknown) date) Current some day unknown) smoker (unknown) (no (unknown) (unknown) Social History (units (unknown) date) unknown) (unknown) (no (unknown) (unknown) Speech and (units (unk nown) date) Movement: speech unknown) and movement normal (unknown) (no (unknown) (unknown) Spleen:? (units (unkno wn) date) Unremarkable.? ? unknown) (unknown) (no (unknown) (unknown) Status: Acute (units ( unknown) date) unknown) (unknown) (no (unknown) (unknown) Stomach and (units (un known) date) Bowel:? Stomach, unknown) small bowel loops, and colon are unremarkable.? (unknown) (no (unknown) (unknown) Surgical History (units (unknown) date) (Reviewed 06/07/22 unknown) @ 05:36 by Tremaine Rae DO) (unknown) (no (unknown) (unknown) TECHNIQUE:? (units (un known) date) unknown) (unknown) (no (unknown) (unknown) TOA (tubo-ovarian (units (unknown) date) abscess) unknown) (-06/28/21) (unknown) (no (unknown) (unknown) There is a (units (unk nown) date) unknown) (unknown) (no (unknown) (unknown) This [...] unknown) (must be on same date of service/appointmen t) (unknown) (no (unknown) (unknown) Time Spent (units (unk nown) date) unknown) (unknown) (no (unknown) (unknown) Tobacco + (units (unkn own) date) Substance Use unknown) (unknown) (no (unknown) (unknown) Tobacco Status (units (unknown) date) unknown) (unknown) (no (unknown) (unknown) Total Time: 35 (units (unknown) date) unknown) (unknown) (no (unknown) (unknown) US pelvic (units (unkn own) date) complete 3 Months unknown) G89.29 - Other chronic pain, N83.202 - Unspecified (unknown) (no (unknown) (unknown) Uterus:? Uterus (units (unknown) date) is anteverted and unknown) normal in size at 7.1 x 5.2 x 3.8 cm. The (unknown) (no (unknown) (unknown) Ventral Wall: ? (units (unknown) date) No hernia.? unknown) (unknown) (no (unknown) (unknown) Vessels:? Aorta (units (unknown) date) and inferior vena unknown) cava are normal in size.? (unknown) (no (unknown) (unknown) Visit Reasons: (units (unknown) date) Hemorrhagic unknown) Ovarian Cyst F/U (unknown) (no (unknown) (unknown) Vitals (units (unkno wn) date) unknown) (unknown) (no (unknown) (unknown) We also had an (units (unknown) date) extensive unknown) discussion about the findings at the time of her (unknown) (no (unknown) (unknown) Weight 153 lb (units ( unknown) date) unknown) (unknown) (no (unknown) (unknown) [Rx Confirmed (units ( unknown) date) 06/14/22] unknown) (unknown) (no (unknown) (unknown) adjustment (units (unk nown) date) unknown) (unknown) (no (unknown) (unknown) adnexal and (units (un known) date) endometrial unknown) structures by transabdominal scanning.? (unknown) (no (unknown) (unknown) alcohol intake: (units (unknown) date) current unknown) (unknown) (no (unknown) (unknown) amount of free (units (unknown) date) fluid in the unknown) cul-de-sac. (unknown) (no (unknown) (unknown) as the (units (unkno wn) date) possibility of unknown) putting her on oral contraceptives for ovarian cyst (unknown) (no (unknown) (unknown) at time of (units (unkn own) date) laparoscopy, the unknown) darío-tubal adhesions and what appeared to be a small (unknown) (no (unknown) (unknown) ay occur. (units (unkn own) date) Occasional unknown) wrong-word or 'sound-alike' substitutions may have (unknown) (no (unknown) (unknown) clindamycin HCl (units (unknown) date) 150 mg capsule 150 unknown) mg PO DAILY #30 caps 03/17/22 [Rx Confirmed (unknown) (no (unknown) (unknown) clinical (units (unkno wn) date) correlation.? unknown) After adequate treatment, a follow-up ultrasound is (unknown) (no (unknown) (unknown) diagnoses (units (unkn own) date) unknown) (unknown) (no (unknown) (unknown) documentation.? 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 (units (unknown) date) We discussed the unknown) diagnosis of infertility and methods of (unknown) (no (unknown) (unknown) fluid filled (units (u nknown) date) structure adjacent unknown) to the left ovary.? Differential diagnoses are (unknown) (no (unknown) (unknown) follow-up/further (units (unknown) date) evaluation will be unknown) coordinated accordingly. (unknown) (no (unknown) (unknown) following up the (units (unknown) date) left ovarian cyst unknown) noted on imaging studies at that time as well (unknown) (no (unknown) (unknown) from the (units (unkno wn) date) unknown) (unknown) (no (unknown) (unknown) gynecological (units ( unknown) date) follow-up.? unknown) (unknown) (no (unknown) (unknown) have occurred. If (units (unknown) date) there are any unknown) questions, please contact the Medical Records (unknown) (no (unknown) (unknown) hemorrhagic (units (un known) date) ovarian cyst unknown) versus hydrosalpinx and tubo-ovarian abscess.? (unknown) (no (unknown) (unknown) her. Instead will (units (unknown) date) follow-up with a unknown) repeat pelvic ultrasound in 3 months to make (unknown) (no (unknown) (unknown) homogeneous. ? (units (unknown) date) The endometrium unknown) measures 10.9 mm combined thickness. (unknown) (no (unknown) (unknown) household (units (unkn own) date) members: friend(s) unknown) (unknown) (no (unknown) (unknown) hydrocodone 5 (units ( unknown) date) mg-acetaminophen unknown) 325 mg tablet 1 tab PO Q4-6H PRN pain #10 tabs (unknown) (no (unknown) (unknown) hydromorphone 4 (units (unknown) date) mg tablet unknown) (Dilaudid) 4 mg PO Q4-6H PRN pain #20 tabs 04/08/22 (unknown) (no (unknown) (unknown) hydrosalpinx (units (u nknown) date) would suggest unknown) significant damage may have been done to the left (unknown) (no (unknown) (unknown) improved but she (units (unknown) date) continues to have unknown) mild LLQ pain with certain activities but (unknown) (no (unknown) (unknown) in the (units (unkno wn) date) unknown) (unknown) (no (unknown) (unknown) include complex (units (unknown) date) ovarian cyst and unknown) tubo-ovarian abscess.? Recommend pelvic (unknown) (no (unknown) (unknown) including but not (units (unknown) date) limited to in unknown) vitro fertilization, lysis of adhesions, (unknown) (no (unknown) (unknown) infected the left (units (unknown) date) adnexa and unknown) although the patency of the tube was not assessed (unknown) (no (unknown) (unknown) intervention is (units (unknown) date) warranted at this unknown) time. We discussed longer-term plans for (unknown) (no (unknown) (unknown) is a trace (units (unk nown) date) unknown) (unknown) (no (unknown) (unknown) ketorolac 10 mg (units (unknown) date) tablet 10 mg PO unknown) Q6H PRN pain #14 tabs 06/07/22 [Rx Confirmed (unknown) (no (unknown) (unknown) laparoscopy and (units (unknown) date) potential unknown) implications for fertility. She was advised that the (unknown) (no (unknown) (unknown) left adnexa (units (un known) date) measuring 4.0 x unknown) 5.3 x 5.2 cm.? Right ovary is unremarkable.? There (unknown) (no (unknown) (unknown) lung bases to the (units (unknown) date) pubic symphysis.? unknown) Coronal and sagittal reformats were (unknown) (no (unknown) (unknown) moderate amount (units (unknown) date) of stool in colon. unknown) (unknown) (no (unknown) (unknown) myometrium is (units ( unknown) date) unknown) (unknown) (no (unknown) (unknown) occurred due to (units (unknown) date) the inherent unknown) limitations of voice recognition software. Please (unknown) (no (unknown) (unknown) of 6.3 cc. The (units (unknown) date) left ovary unknown) measures 5.1 x 4.5 x 4 point cm, with a calculated (unknown) (no (unknown) (unknown) of mA and/or kV (units (unknown) date) according to unknown) patient size. (unknown) (no (unknown) (unknown) on 06/07 due to (units (unknown) date) extreme pain pt unknown) had a pelvic US and pelvic CT done (unknown) (no (unknown) (unknown) ondansetron 4 mg (units (unknown) date) disintegrating unknown) tablet 4 mg PO TID-QID PRN nausea and vomiting (unknown) (no (unknown) (unknown) otherwise is (units (u nknown) date) doing well. unknown) (unknown) (no (unknown) (unknown) ovarian cyst, (units ( unknown) date) left side, R10.2 - unknown) Pelvic and perineal pain (unknown) (no (unknown) (unknown) ovarian (units (unkno wn) date) unknown) (unknown) (no (unknown) (unknown) ovary, (units (unkno wn) date) unknown) (unknown) (no (unknown) (unknown) ovary.? No (units (unk nown) date) adnexal masses are unknown) seen. (unknown) (no (unknown) (unknown) oxycodone 5 mg (units (unknown) date) tablet 5 mg PO Q4H unknown) PRN pain #20 tabs 04/07/22 [Rx Confirmed (unknown) (no (unknown) (unknown) pelvic infection (units (unknown) date) that resulted in a unknown) right-sided tubo-ovarian abscess and also (unknown) (no (unknown) (unknown) performed.? For (units (unknown) date) unknown) (unknown) (no (unknown) (unknown) radiation dose (units (unknown) date) reduction, the unknown) following was used:? automated exposure control, (unknown) (no (unknown) (unknown) rash (units (unkno wn) date) unknown) (unknown) (no (unknown) (unknown) read the note (units ( unknown) date) carefully and unknown) recognize, using context, where these substitutions (unknown) (no (unknown) (unknown) salpingostomy, (units (unknown) date) and other unknown) interventions. (unknown) (no (unknown) (unknown) sentences (units (unkn own) date) unknown) (unknown) (no (unknown) (unknown) software. (units (unkn own) date) Although every unknown) effort is made to edit content, cabinet abrasive sandblaster errors m (unknown) (no (unknown) (unknown) suggested. (units (unk nown) date) unknown) (unknown) (no (unknown) (unknown) suppression. (units (u nknown) date) Unfortunately she unknown) is been on control pills several times in (unknown) (no (unknown) (unknown) sure that the (units ( unknown) date) ovarian cyst has unknown) resolved. (unknown) (no (unknown) (unknown) the past and did (units (unknown) date) not tolerate them unknown) very well so that is not a good option for (unknown) (no (unknown) (unknown) the (units (unkno wn) date) unknown) (unknown) (no (unknown) (unknown) there is anechoic (units (unknown) date) fluid filled unknown) structure.? Less than 12 follicles can be seen in (unknown) (no (unknown) (unknown) ultrasound and (units (unknown) date) unknown) (unknown) (no (unknown) (unknown) volume of 59.1 (units ( unknown) date) cc.? There is a unknown) complex cyst in left ovary.? Superior to the left (unknown) (no (unknown) (unknown) volume (units (unkno wn) date) unknown) (unknown) (no (unknown) (unknown) vomitt (units (unkno wn) date) unknown) Result panel 560 (unknown) (no (unknown) (unknown) (no value) (units (unk nown) date) unknown) (unknown) (no (unknown) (unknown) [id number] (units (unkn own) date) unknown) (unknown) (no (unknown) (unknown) 07/28/22 (units (unkno wn) date) unknown) (unknown) (no (unknown) (unknown) 1. Left ovarian (units (unknown) date) 3.7 cm unknown) hemorrhagic cyst. (unknown) (no (unknown) (unknown) [address] [place] [address] (units (unknown) date) unknown) (unknown) (no (unknown) (unknown) 2. No (units (unkno wn) date) sonographic signs unknown) of ovarian torsion. (unknown) (no (unknown) (unknown) Accession (units (unkn own) date) Number: unknown) [id number] (unknown) (no (unknown) (unknown) Additional (units (unk nown) date) endovaginal unknown) scanning was necessary due to incomplete visualization (unknown) (no (unknown) (unknown) Age/Sex: 21 / F (units (unknown) date) Date of Service: unknown) (unknown) (no (unknown) (unknown) [place], [place] (units ( unknown) date) [id number] unknown) (unknown) (no (unknown) (unknown) Approved by: (units (u nknown) date) marta Chiu M.D. on 07/28/2022 at 8:17 (unknown) (no (unknown) (unknown) COMPARISON: (units (un known) date) [facility], unknown) US, US PELVIC COMPLETE, 06/07/2022, 5:30. (unknown) (no (unknown) (unknown) : 2000 (units (unknown) date) Acct:[id number] unknown) (unknown) (no (unknown) (unknown) FINDINGS: (units (unkn own) date) unknown) (unknown) (no (unknown) (unknown) IMPRESSION: (units (un known) date) unknown) (unknown) (no (unknown) (unknown) INDICATIONS: (units (u nknown) date) LEFT PELVIC PAIN unknown) (unknown) (no (unknown) (unknown) [facility] (units (unknown) date) unknown) (unknown) (no (unknown) (unknown) Loc: ED (units (unkno wn) date) unknown) (unknown) (no (unknown) (unknown) Ordering (units (unkno wn) date) Provider: unknown) Kyle Bess MD (unknown) (no (unknown) (unknown) Other: Trace (units (u nknown) date) free fluid is unknown) seen in the left adnexa which is within physiologic (unknown) (no (unknown) (unknown) Ovaries: The (units (u nknown) date) right ovary unknown) measures 1.5 x 2.9 x 2.1 cm, with a calculated (unknown) (no (unknown) (unknown) PROCEDURE: US (units ( unknown) date) PELVIC COMPLETE unknown) (unknown) (no (unknown) (unknown) Patient: (units (unkno wn) date) Ade Vidales unknown) MR#: [id number] (unknown) (no (unknown) (unknown) Procedure: US (units ( unknown) date) pelvic complete unknown) (unknown) (no (unknown) (unknown) Real-time (units (unkn own) date) scanning was unknown) performed of the pelvic organs, with image (unknown) (no (unknown) (unknown) Signed (units (unkno wn) date) unknown) (unknown) (no (unknown) (unknown) TECHNIQUE: (units (unk nown) date) unknown) (unknown) (no (unknown) (unknown) There is no (units (un known) date) significant unknown) discrepancy when compared to the overnight preliminary (unknown) (no (unknown) (unknown) To assist (units (unkn own) date) unknown) (unknown) (no (unknown) (unknown) Ultrasound (units (unk nown) date) Report unknown) (unknown) (no (unknown) (unknown) Uterus: Uterus (units (unknown) date) is anteverted and unknown) normal in size at 7.8 x 3.5 x 4.4 cm. The (unknown) (no (unknown) (unknown) We strive to (units (u nknown) date) produce accurate, unknown) complete, and clear reports of imaging services. (unknown) (no (unknown) (unknown) adnexal and (units (un known) date) endometrial unknown) structures by transabdominal scanning. (unknown) (no (unknown) (unknown) adnexal (units (unkno wn) date) unknown) (unknown) (no (unknown) (unknown) and voice (units (unkn own) date) recognition unknown) software. Therefore, it may contain abnormal punctuation, (unknown) (no (unknown) (unknown) compared to (units (un known) date) unknown) (unknown) (no (unknown) (unknown) documentation. (units (unknown) date) unknown) (unknown) (no (unknown) (unknown) homogeneous. The (units (unknown) date) endometrium unknown) measures 14 mm combined thickness. (unknown) (no (unknown) (unknown) inaccuracies. (units ( unknown) date) unknown) (unknown) (no (unknown) (unknown) insertions (units (unk nown) date) and/or omissions. unknown) Occasional wrong-word or sound-alike substitutions (unknown) (no (unknown) (unknown) internal (units (unkno wn) date) septations and unknown) hypoechoic contents. Cyst size has decreased when (unknown) (no (unknown) (unknown) lace-like (units (unkn own) date) unknown) (unknown) (no (unknown) (unknown) limits. (units (unkno wn) date) unknown) (unknown) (no (unknown) (unknown) masses are seen. (units (unknown) date) Normal Doppler unknown) flow is seen to each ovary. (unknown) (no (unknown) (unknown) may (units (unkno wn) date) unknown) (unknown) (no (unknown) (unknown) myometrium is (units ( unknown) date) unknown) (unknown) (no (unknown) (unknown) occur. Though we (units (unknown) date) review the report unknown) and make efforts to correct it, we do (unknown) (no (unknown) (unknown) of 35.8 cc. (units (un known) date) There is a left unknown) ovarian cyst measuring 3.7 x 3.4 x 3.3 cm with (unknown) (no (unknown) (unknown) of 4.7 cc. The (units (unknown) date) left ovary unknown) measures 4.5 x 3.7 x 4.1 cm, with a calculated (unknown) (no (unknown) (unknown) of the (units (unkno wn) date) unknown) (unknown) (no (unknown) (unknown) ovarian volume (units (unknown) date) unknown) (unknown) (no (unknown) (unknown) recommend that (units (unknown) date) unknown) (unknown) (no (unknown) (unknown) report. (units (unkno wn) date) unknown) (unknown) (no (unknown) (unknown) templates (units (unkn own) date) unknown) (unknown) (no (unknown) (unknown) the report be (units ( unknown) date) read carefully in unknown) proper context to recognize any text (unknown) (no (unknown) (unknown) the ultrasound (units (unknown) date) from 06/07/2022. unknown) The right ovary is normal in appearance. No (unknown) (no (unknown) (unknown) us in improving (units (unknown) date) patient care, unknown) this report was composed using standard report Result panel 561 (unknown) (no (unknown) (unknown) (no value) (units (unk nown) date) unknown) (unknown) (no (unknown) (unknown) (Dilaudid) (units (unk nown) date) unknown) (unknown) (no (unknown) (unknown) [id number] (units (unkno wn) date) unknown) (unknown) (no (unknown) (unknown) 07/28/22 01:48 (units (unknown) date) unknown) (unknown) (no (unknown) (unknown) 07/28/22 01:49 (units (unknown) date) unknown) (unknown) (no (unknown) (unknown) 1 tab PO Q4-6H (units (unknown) date) PRN (Reason: unknown) pain) Qty: 10 0RF (unknown) (no (unknown) (unknown) 10 mg PO Q6H PRN (units (unknown) date) (Reason: pain) unknown) Qty: 14 0RF (unknown) (no (unknown) (unknown) 150 mg PO DAILY (units (unknown) date) Qty: 30 0RF unknown) (unknown) (no (unknown) (unknown) 4 mg PO Q4-6H (units ( unknown) date) PRN (Reason: unknown) pain) Qty: 20 0RF (unknown) (no (unknown) (unknown) 4 mg PO TID-QID (units (unknown) date) PRN (Reason: unknown) nausea and vomiting) Qty: 10 0RF (unknown) (no (unknown) (unknown) 5 mg PO Q4H PRN (units (unknown) date) (Reason: pain) unknown) Qty: 20 0RF (unknown) (no (unknown) (unknown) Acne (-2015) (units (u nknown) date) unknown) (unknown) (no (unknown) (unknown) Age/Sex: 21 / F (units (unknown) date) unknown) (unknown) (no (unknown) (unknown) Alcohol type: (units ( unknown) date) wine unknown) (unknown) (no (unknown) (unknown) Allergies (units (unkn own) date) unknown) (unknown) (no (unknown) (unknown) Allergy/AdvReac (units (unknown) date) Type Severity unknown) Reaction Status Date / Time (unknown) (no (unknown) (unknown) Anesthesia (units (unk nown) date) unknown) (unknown) (no (unknown) (unknown) CBC Auto Diff (units ( unknown) date) [Complete Blood unknown) Count AUTO DIFF] Stat (unknown) (no (unknown) (unknown) CMP (units (unkno wn) date) [Comprehensive unknown) Metabolic Panel] Stat (unknown) (no (unknown) (unknown) Chlamydia (units (unkn own) date) infection () unknown) (unknown) (no (unknown) (unknown) Course (units (unkno wn) date) unknown) (unknown) (no (unknown) (unknown) : 2000 (units (unknown) date) Acct:[id number] unknown) (unknown) (no (unknown) (unknown) Date of Service: (units (unknown) date) 07/28/22 unknown) (unknown) (no (unknown) (unknown) Departure (units (unkn own) date) unknown) (unknown) (no (unknown) (unknown) Discharge Plan (units (unknown) date) unknown) (unknown) (no (unknown) (unknown) Discontinued (units (u nknown) date) Medications unknown) (unknown) (no (unknown) (unknown) ED Orders (units (unkn own) date) unknown) (unknown) (no (unknown) (unknown) ER Physician: (units ( unknown) date) Kyle Bess MD unknown) (unknown) (no (unknown) (unknown) Emergency Report (units (unknown) date) unknown) (unknown) (no (unknown) (unknown) Endometriosis (units ( unknown) date) () unknown) (unknown) (no (unknown) (unknown) General (units (unkno wn) date) unknown) (unknown) (no (unknown) (unknown) HPI - Abdominal (units (unknown) date) Pain unknown) (unknown) (no (unknown) (unknown) Heavy menstrual (units (unknown) date) period (-2018) unknown) (unknown) (no (unknown) (unknown) Irregular (units (unkn own) date) menstrual cycle unknown) () (unknown) (no (unknown) (unknown) [facility] (units (unknown) date) [address] [place] [address] Street unknown) LASHA Davison [address] (unknown) (no (unknown) (unknown) Joel Abrams (units (unknown) date) ELEUTERIO dasilva [Primary unknown) Care Provider] (unknown) (no (unknown) (unknown) Lymphangioma (units (u nknown) date) unknown) (unknown) (no (unknown) (unknown) Medical History (units (unknown) date) (Reviewed unknown) 06/07/22 @ 05:36 by Tremaine Rae DO) (unknown) (no (unknown) (unknown) Medication (units (unk nown) date) Instructions unknown) Recorded (unknown) (no (unknown) (unknown) No Action (units (unkn own) date) unknown) (unknown) (no (unknown) (unknown) Ondansetron HCl (units (unknown) date) (Ondansetron 4 unknown) Mg/2 Ml Inj) 4 mg IV NOW ONE (unknown) (no (unknown) (unknown) Opioids - (units (unkn own) date) Morphine unknown) Analogues Allergy Intermediate rash Verified 06/14/22 14:51 (unknown) (no (unknown) (unknown) Ordered: (units (unkno wn) date) unknown) (unknown) (no (unknown) (unknown) Orders (units (unkno wn) date) unknown) (unknown) (no (unknown) (unknown) Ovarian cyst (units (u nknown) date) unknown) (unknown) (no (unknown) (unknown) Painful (units (unkno wn) date) menstrual periods unknown) () (unknown) (no (unknown) (unknown) Patient History (units (unknown) date) unknown) (unknown) (no (unknown) (unknown) Patient: (units (unkno wn) date) Ade Vidales E unknown) MR#: [id number] (unknown) (no (unknown) (unknown) Prescriptions: (units (unknown) date) unknown) (unknown) (no (unknown) (unknown) Previous Rx's (units ( unknown) date) unknown) (unknown) (no (unknown) (unknown) Referrals: (units (unk nown) date) unknown) (unknown) (no (unknown) (unknown) Related Data (units (u nknown) date) unknown) (unknown) (no (unknown) (unknown) S/P ACL (units (unkno wn) date) reconstruction unknown) (-06/08/21) (unknown) (no (unknown) (unknown) Signed By: (units (unk nown) date) unknown) (unknown) (no (unknown) (unknown) Smoking Status: (units (unknown) date) Current some day unknown) smoker (unknown) (no (unknown) (unknown) Social History (units (unknown) date) (Reviewed unknown) 06/07/22 @ 05:36 by Tremaine Rae DO) (unknown) (no (unknown) (unknown) Sodium Chloride (units (unknown) date) (Normal Saline unknown) 0.9%) 1,000 mls @ 1,000 mls/hr IV BOLUS ONE (unknown) (no (unknown) (unknown) Stated (units (unkno wn) date) Complaint: N/V/D unknown) ABD PAIN (unknown) (no (unknown) (unknown) Stop: 07/28/22 (units (unknown) date) 01:50 unknown) (unknown) (no (unknown) (unknown) Stop: 07/28/22 (units (unknown) date) 02:48 unknown) (unknown) (no (unknown) (unknown) Substance Use (units ( unknown) date) Type: does not unknown) use (unknown) (no (unknown) (unknown) Surgical History (units (unknown) date) (Reviewed unknown) 06/07/22 @ 05:36 by Tremaine Rae DO) (unknown) (no (unknown) (unknown) TOA (units (unkno wn) date) (tubo-ovarian unknown) abscess) (-06/28/21) (unknown) (no (unknown) (unknown) Time Seen by (units (u nknown) date) Provider: unknown) 07/28/22 01:26 (unknown) (no (unknown) (unknown) US pelvic (units (unkn own) date) complete Stat unknown) (unknown) (no (unknown) (unknown) alcohol intake (units (unknown) date) frequency: unknown) holidays/special occasions only (unknown) (no (unknown) (unknown) alcohol intake: (units (unknown) date) current unknown) (unknown) (no (unknown) (unknown) clindamycin HCl (units (unknown) date) 150 mg capsule unknown) 150 mg PO DAILY #30 caps 03/17/22 (unknown) (no (unknown) (unknown) clindamycin HCl (units (unknown) date) 150 mg capsule unknown) (unknown) (no (unknown) (unknown) doxycycline (units (un known) date) AdvReac unknown) Intermediate vomitt Verified 06/14/22 14:51 (unknown) (no (unknown) (unknown) household (units (unkn own) date) members: unknown) friend(s) (unknown) (no (unknown) (unknown) hydrocodone 5 (units ( unknown) date) mg-acetaminophen unknown) 325 1 tab PO Q4-6H PRN pain #10 tabs 06/07/22 (unknown) (no (unknown) (unknown) hydrocodone-acet (units (unknown) date) aminophen 5-325 unknown) mg tablet (unknown) (no (unknown) (unknown) hydromorphone 4 (units (unknown) date) mg tablet 4 mg PO unknown) Q4-6H PRN pain #20 tabs 04/08/22 (unknown) (no (unknown) (unknown) hydromorphone (units ( unknown) date) [Dilaudid] 4 mg unknown) tablet (unknown) (no (unknown) (unknown) ketorolac 10 mg (units (unknown) date) tablet 10 mg PO unknown) Q6H PRN pain #14 tabs 06/07/22 (unknown) (no (unknown) (unknown) ketorolac 10 mg (units (unknown) date) tablet unknown) (unknown) (no (unknown) (unknown) mg tablet (units (unkn own) date) unknown) (unknown) (no (unknown) (unknown) ondansetron 4 mg (units (unknown) date) disintegrating 4 unknown) mg PO TID-QID PRN nausea and 06/07/22 (unknown) (no (unknown) (unknown) ondansetron 4 mg (units (unknown) date) tablet,disintegra unknown) ting (unknown) (no (unknown) (unknown) oxycodone 5 mg (units (unknown) date) tablet 5 mg PO unknown) Q4H PRN pain #20 tabs 04/07/22 (unknown) (no (unknown) (unknown) oxycodone 5 mg (units (unknown) date) tablet unknown) (unknown) (no (unknown) (unknown) tablet vomiting (units (unknown) date) #10 tabs unknown) (unknown) (no (unknown) (unknown) tobacco type: (units ( unknown) date) vaping unknown) Result panel [id number] (unknown) (no (unknown) (unknown) (no value) (units (unk nown) date) unknown) (unknown) (no (unknown) (unknown) (Dilaudid) (units (unk nown) date) unknown) (unknown) (no (unknown) (unknown) [id number] (units (unkno wn) date) unknown) (unknown) (no (unknown) (unknown) 07/28/22 01:48 (units (unknown) date) unknown) (unknown) (no (unknown) (unknown) 07/28/22 01:49 (units (unknown) date) unknown) (unknown) (no (unknown) (unknown) 1 tab PO Q4-6H (units (unknown) date) PRN (Reason: unknown) pain) Qty: 10 0RF (unknown) (no (unknown) (unknown) 10 mg PO Q6H PRN (units (unknown) date) (Reason: pain) unknown) Qty: 14 0RF (unknown) (no (unknown) (unknown) 150 mg PO DAILY (units (unknown) date) Qty: 30 0RF unknown) (unknown) (no (unknown) (unknown) 4 mg PO Q4-6H (units ( unknown) date) PRN (Reason: unknown) pain) Qty: 20 0RF (unknown) (no (unknown) (unknown) 4 mg PO TID-QID (units (unknown) date) PRN (Reason: unknown) nausea and vomiting) Qty: 10 0RF (unknown) (no (unknown) (unknown) 5 mg PO Q4H PRN (units (unknown) date) (Reason: pain) unknown) Qty: 20 0RF (unknown) (no (unknown) (unknown) Acne (-2016) (units (u nknown) date) unknown) (unknown) (no (unknown) (unknown) Age/Sex: 21 / F (units (unknown) date) unknown) (unknown) (no (unknown) (unknown) Alcohol type: (units ( unknown) date) wine unknown) (unknown) (no (unknown) (unknown) Allergies (units (unkn own) date) unknown) (unknown) (no (unknown) (unknown) Allergy/AdvReac (units (unknown) date) Type Severity unknown) Reaction Status Date / Time (unknown) (no (unknown) (unknown) Anesthesia (units (unk nown) date) unknown) (unknown) (no (unknown) (unknown) CBC Auto Diff (units ( unknown) date) [Complete Blood unknown) Count AUTO DIFF] Stat (unknown) (no (unknown) (unknown) CMP (units (unkno wn) date) [Comprehensive unknown) Metabolic Panel] Stat (unknown) (no (unknown) (unknown) Chlamydia (units (unkn own) date) infection () unknown) (unknown) (no (unknown) (unknown) Course (units (unkno wn) date) unknown) (unknown) (no (unknown) (unknown) : 2000 (units (unknown) date) Acct:[id number] unknown) (unknown) (no (unknown) (unknown) Date of Service: (units (unknown) date) 07/28/22 unknown) (unknown) (no (unknown) (unknown) Departure (units (unkn own) date) unknown) (unknown) (no (unknown) (unknown) Discharge Plan (units (unknown) date) unknown) (unknown) (no (unknown) (unknown) Discontinued (units (u nknown) date) Medications unknown) (unknown) (no (unknown) (unknown) ED Orders (units (unkn own) date) unknown) (unknown) (no (unknown) (unknown) ER Physician: (units ( unknown) date) Kyle Bess MD unknown) (unknown) (no (unknown) (unknown) Emergency Report (units (unknown) date) unknown) (unknown) (no (unknown) (unknown) Endometriosis (units ( unknown) date) () unknown) (unknown) (no (unknown) (unknown) General (units (unkno wn) date) unknown) (unknown) (no (unknown) (unknown) HPI - Abdominal (units (unknown) date) Pain unknown) (unknown) (no (unknown) (unknown) HPI narrative: (units (unknown) date) unknown) (unknown) (no (unknown) (unknown) Heavy menstrual (units (unknown) date) period (-2019) unknown) (unknown) (no (unknown) (unknown) History of (units (unk nown) date) Present Illness unknown) (unknown) (no (unknown) (unknown) Irregular (units (unkn own) date) menstrual cycle unknown) () (unknown) (no (unknown) (unknown) [facility] (units (unknown) date) [address] unknown) [place] [id number] (unknown) (no (unknown) (unknown) Joel Abrams (units (unknown) date) a, 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 [Primary unknown) Care Provider] (unknown) (no (unknown) (unknown) Limitations: no (units (unknown) date) limitations unknown) (unknown) (no (unknown) (unknown) Lymphangioma (units (u nknown) date) unknown) (unknown) (no (unknown) (unknown) Medical History (units (unknown) date) (Reviewed unknown) 06/07/22 @ 05:36 by Tremaine Rae DO) (unknown) (no (unknown) (unknown) Medication (units (unk nown) date) Instructions unknown) Recorded (unknown) (no (unknown) (unknown) Mode of arrival: (units (unknown) date) Family Vehicle unknown) (unknown) (no (unknown) (unknown) No Action (units (unkn own) date) unknown) (unknown) (no (unknown) (unknown) No vaginal (units (unk nown) date) bleeding or unknown) discharge. Patient has had hydrocodone and Toradol for (unknown) (no (unknown) (unknown) Ondansetron HCl (units (unknown) date) (Ondansetron 4 unknown) Mg/2 Ml Inj) 4 mg IV NOW ONE (unknown) (no (unknown) (unknown) Opioids - (units (unkn own) date) Morphine unknown) Analogues Allergy Intermediate rash Verified 06/14/22 14:51 (unknown) (no (unknown) (unknown) Ordered: (units (unkno wn) date) unknown) (unknown) (no (unknown) (unknown) Orders (units (unkno wn) date) unknown) (unknown) (no (unknown) (unknown) Ovarian cyst (units (u nknown) date) unknown) (unknown) (no (unknown) (unknown) Painful (units (unkno wn) date) menstrual periods unknown) () (unknown) (no (unknown) (unknown) Patient History (units (unknown) date) unknown) (unknown) (no (unknown) (unknown) Patient here (units (u nknown) date) with fiancee. Has unknown) history of left ovarian cyst. Seen by her OBGYN (unknown) (no (unknown) (unknown) Patient: (units (unkno wn) date) Ade Vidales E unknown) MR#: [id number] (unknown) (no (unknown) (unknown) Prescriptions: (units (unknown) date) unknown) (unknown) (no (unknown) (unknown) Previous Rx's (units ( unknown) date) unknown) (unknown) (no (unknown) (unknown) Referrals: (units (unk nown) date) unknown) (unknown) (no (unknown) (unknown) Related Data (units (u nknown) date) unknown) (unknown) (no (unknown) (unknown) S/P ACL (units (unkno wn) date) reconstruction unknown) (06/08/21) (unknown) (no (unknown) (unknown) Signed By: (units (unk nown) date) unknown) (unknown) (no (unknown) (unknown) Smoking Status: (units (unknown) date) Current some day unknown) smoker (unknown) (no (unknown) (unknown) Social History (units (unknown) date) (Reviewed unknown) 06/07/22 @ 05:36 by Tremaine Rae DO) (unknown) (no (unknown) (unknown) Sodium Chloride (units (unknown) date) (Normal Saline unknown) 0.9%) 1,000 mls @ 1,000 mls/hr IV BOLUS ONE (unknown) (no (unknown) (unknown) Source: patient (units (unknown) date) and family unknown) (unknown) (no (unknown) (unknown) Stated (units (unkno wn) date) Complaint: N/V/D unknown) ABD PAIN (unknown) (no (unknown) (unknown) Stop: 07/28/22 (units (unknown) date) 01:50 unknown) (unknown) (no (unknown) (unknown) Stop: 07/28/22 (units (unknown) date) 02:48 unknown) (unknown) (no (unknown) (unknown) Substance Use (units ( unknown) date) Type: does not unknown) use (unknown) (no (unknown) (unknown) Surgical History (units (unknown) date) (Reviewed unknown) 06/07/22 @ 05:36 by Tremaine Rae DO) (unknown) (no (unknown) (unknown) TOA (units (unkno wn) date) (tubo-ovarian unknown) abscess) (06/28/21) (unknown) (no (unknown) (unknown) Time Seen by (units (u nknown) date) Provider: unknown) 07/28/22 01:26 (unknown) (no (unknown) (unknown) US pelvic (units (unkn own) date) complete Stat unknown) (unknown) (no (unknown) (unknown) Manny her OBGYN (units (unknown) date) and her have unknown) decided to try managed conservatively, no (unknown) (no (unknown) (unknown) alcohol intake (units (unknown) date) frequency: unknown) holidays/special occasions only (unknown) (no (unknown) (unknown) alcohol intake: (units (unknown) date) current unknown) (unknown) (no (unknown) (unknown) and he as well (units (unknown) date) as this unknown) department back in May for the same complaint. (unknown) (no (unknown) (unknown) been doing well (units (unknown) date) until tonight at unknown) 8:00 p.m. had pain in the left pelvis. Had (unknown) (no (unknown) (unknown) clindamycin HCl (units (unknown) date) 150 mg capsule unknown) 150 mg PO DAILY #30 caps 03/17/22 (unknown) (no (unknown) (unknown) clindamycin HCl (units (unknown) date) 150 mg capsule unknown) (unknown) (no (unknown) (unknown) control pills (units ( unknown) date) and no surgery at unknown) this time. She has history of removal fallopian (unknown) (no (unknown) (unknown) doxycycline (units (un known) date) AdvReac unknown) Intermediate vomitt Verified 06/14/22 14:51 (unknown) (no (unknown) (unknown) household (units (unkn own) date) members: unknown) friend(s) (unknown) (no (unknown) (unknown) hydrocodone 5 (units ( unknown) date) mg-acetaminophen unknown) 325 1 tab PO Q4-6H PRN pain #10 tabs 06/07/22 (unknown) (no (unknown) (unknown) hydrocodone-acet (units (unknown) date) aminophen 5-325 unknown) mg tablet (unknown) (no (unknown) (unknown) hydromorphone 4 (units (unknown) date) mg tablet 4 mg PO unknown) Q4-6H PRN pain #20 tabs 04/08/22 (unknown) (no (unknown) (unknown) hydromorphone (units ( unknown) date) [Dilaudid] 4 mg unknown) tablet (unknown) (no (unknown) (unknown) ketorolac 10 mg (units (unknown) date) tablet 10 mg PO unknown) Q6H PRN pain #14 tabs 06/07/22 (unknown) (no (unknown) (unknown) ketorolac 10 mg (units (unknown) date) tablet unknown) (unknown) (no (unknown) (unknown) mg tablet (units (unkn own) date) unknown) (unknown) (no (unknown) (unknown) nausea and (units (unk nown) date) vomiting. Pain unknown) radiates to the left lower back. Denies . (unknown) (no (unknown) (unknown) ondansetron 4 mg (units (unknown) date) disintegrating 4 unknown) mg PO TID-QID PRN nausea and 06/07/22 (unknown) (no (unknown) (unknown) ondansetron 4 mg (units (unknown) date) tablet,disintegra unknown) ting (unknown) (no (unknown) (unknown) oxycodone 5 mg (units (unknown) date) tablet 5 mg PO unknown) Q4H PRN pain #20 tabs 04/07/22 (unknown) (no (unknown) (unknown) oxycodone 5 mg (units (unknown) date) tablet unknown) (unknown) (no (unknown) (unknown) relief in the (units ( unknown) date) past unknown) (unknown) (no (unknown) (unknown) tablet vomiting (units (unknown) date) #10 tabs unknown) (unknown) (no (unknown) (unknown) tobacco type: (units ( unknown) date) vaping unknown) (unknown) (no (unknown) (unknown) tube on the (units (un known) date) right side due to unknown) tubo-ovarian abscess. Two years ago. Patient has Result panel [id number] (unknown) (no (unknown) (unknown) (no value) (units (unk nown) date) unknown) (unknown) (no (unknown) (unknown) (Dilaudid) (units (unk nown) date) unknown) (unknown) (no (unknown) (unknown) [id number] (units (unkno wn) date) unknown) (unknown) (no (unknown) (unknown) 07/28/22 01:48 (units (unknown) date) unknown) (unknown) (no (unknown) (unknown) 07/28/22 01:49 (units (unknown) date) unknown) (unknown) (no (unknown) (unknown) 1 tab PO Q4-6H (units (unknown) date) PRN (Reason: unknown) pain) Qty: 10 0RF (unknown) (no (unknown) (unknown) 10 mg PO Q6H PRN (units (unknown) date) (Reason: pain) unknown) Qty: 14 0RF (unknown) (no (unknown) (unknown) 150 mg PO DAILY (units (unknown) date) Qty: 30 0RF unknown) (unknown) (no (unknown) (unknown) 4 mg PO Q4-6H (units ( unknown) date) PRN (Reason: unknown) pain) Qty: 20 0RF (unknown) (no (unknown) (unknown) 4 mg PO TID-QID (units (unknown) date) PRN (Reason: unknown) nausea and vomiting) Qty: 10 0RF (unknown) (no (unknown) (unknown) 5 mg PO Q4H PRN (units (unknown) date) (Reason: pain) unknown) Qty: 20 0RF (unknown) (no (unknown) (unknown) Acne (-2016) (units (u nknown) date) unknown) (unknown) (no (unknown) (unknown) After history and (units (unknown) date) exam, have unknown) decided order CBC CMP urinalysis test and (unknown) (no (unknown) (unknown) Age/Sex: 21 / F (units (unknown) date) unknown) (unknown) (no (unknown) (unknown) Alcohol type: (units ( unknown) date) wine unknown) (unknown) (no (unknown) (unknown) Allergies (units (unkn own) date) unknown) (unknown) (no (unknown) (unknown) Allergy/AdvReac (units (unknown) date) Type Severity unknown) Reaction Status Date / Time (unknown) (no (unknown) (unknown) Anesthesia (units (unk nown) date) unknown) (unknown) (no (unknown) (unknown) BACK: No flank (units (unknown) date) tenderness. unknown) (unknown) (no (unknown) (unknown) CARDIOVASCULAR: (units (unknown) date) Regular rate and unknown) rhythm without murmurs (unknown) (no (unknown) (unknown) CARDIOVASCULAR: (units (unknown) date) negative chest unknown) pain, palpitations (unknown) (no (unknown) (unknown) CBC Auto Diff (units ( unknown) date) [Complete Blood unknown) Count AUTO DIFF] Stat (unknown) (no (unknown) (unknown) CMP (units (unkno wn) date) [Comprehensive unknown) Metabolic Panel] Stat (unknown) (no (unknown) (unknown) Chlamydia (units (unkn own) date) infection () unknown) (unknown) (no (unknown) (unknown) Chronic (units (unkno wn) date) Condition is unknown) having:: Moderate exacerbation (unknown) (no (unknown) (unknown) Condition is:: (units (unknown) date) Well Controlled unknown) (unknown) (no (unknown) (unknown) Course (units (unkno wn) date) unknown) (unknown) (no (unknown) (unknown) : 2000 (units (unknown) date) Acct:[id number] unknown) (unknown) (no (unknown) (unknown) Date of Service: (units (unknown) date) 07/28/22 unknown) (unknown) (no (unknown) (unknown) Departure (units (unkn own) date) unknown) (unknown) (no (unknown) (unknown) Differential (units (u nknown) date) Diagnosis unknown) (unknown) (no (unknown) (unknown) Differential (units (un known) date) diagnosis: Likely unknown) abdominal pain, calculus of kidney, endometriosis (unknown) (no (unknown) (unknown) Discharge Plan (units (unknown) date) unknown) (unknown) (no (unknown) (unknown) Discontinued (units (u nknown) date) Medications unknown) (unknown) (no (unknown) (unknown) ED Orders (units (unkn own) date) unknown) (unknown) (no (unknown) (unknown) ER Physician: (units ( unknown) date) Kyle Bess MD unknown) (unknown) (no (unknown) (unknown) EXTREMITIES: No (units (unknown) date) gross unknown) deformities. (unknown) (no (unknown) (unknown) EYES: Pupils (units (u nknown) date) equal round unknown) (unknown) (no (unknown) (unknown) Emergency Report (units (unknown) date) unknown) (unknown) (no (unknown) (unknown) Endometriosis (units ( unknown) date) () unknown) (unknown) (no (unknown) (unknown) Exam Narrative: (units (unknown) date) unknown) (unknown) (no (unknown) (unknown) Exam (units (unkno wn) date) unknown) (unknown) (no (unknown) (unknown) GASTROINTESTINAL (units (unknown) date) : Abdomen soft, unknown) reproducible left lower quadrant tenderness no (unknown) (no (unknown) (unknown) GASTROINTESTINAL (units (unknown) date) : Positive unknown) nausea, vomiting, abdominal pain (unknown) (no (unknown) (unknown) GENERAL: in no (units (unknown) date) distress, not unknown) toxic not dyspneic (unknown) (no (unknown) (unknown) GENERAL: (units (unkno wn) date) negative chills, unknown) fatigue, malaise, fever, sweats. (unknown) (no (unknown) (unknown) : negative (units (u nknown) date) dysuria, unknown) frequency, hematuria (unknown) (no (unknown) (unknown) General (units (unkno wn) date) unknown) (unknown) (no (unknown) (unknown) HEAD: (units (unkno wn) date) Normocephalic. unknown) (unknown) (no (unknown) (unknown) HEENT: negative (units (unknown) date) sinus pain, ear unknown) pain, sore throat (unknown) (no (unknown) (unknown) HPI - Abdominal (units (unknown) date) Pain unknown) (unknown) (no (unknown) (unknown) HPI narrative: (units (unknown) date) unknown) (unknown) (no (unknown) (unknown) Heavy menstrual (units (unknown) date) period () unknown) (unknown) (no (unknown) (unknown) History of (units (unk nown) date) Present Illness unknown) (unknown) (no (unknown) (unknown) I did review (units (u nknown) date) medical records unknown) from May 2022 as well as pelvic ultrasound (unknown) (no (unknown) (unknown) Irregular (units (unkn own) date) menstrual cycle unknown) () (unknown) (no (unknown) (unknown) [facility] (units (unknown) date) [address] unknown) [place] [id number] (unknown) (no (unknown) (unknown) Joel Abrams (units (unknown) date) brown 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 [Primary unknown) Care Provider] (unknown) (no (unknown) (unknown) Limitations: no (units (unknown) date) limitations unknown) (unknown) (no (unknown) (unknown) Lymphangioma (units (u nknown) date) unknown) (unknown) (no (unknown) (unknown) MDM - Abdominal (units (unknown) date) Pain unknown) (unknown) (no (unknown) (unknown) MDM Narrative (units ( unknown) date) unknown) (unknown) (no (unknown) (unknown) MUSCULOSKELETAL: (units (unknown) date) negative muscle unknown) or bony pain (unknown) (no (unknown) (unknown) Medical History (units (unknown) date) (Reviewed unknown) 07/28/22 @ 02:02 by Kyle Bess MD) (unknown) (no (unknown) (unknown) Medical Records (units (unknown) date) unknown) (unknown) (no (unknown) (unknown) Medical decision (units (unknown) date) making narrative: unknown) (unknown) (no (unknown) (unknown) Medical records (units (unknown) date) narrative: unknown) (unknown) (no (unknown) (unknown) Medication (units (unk nown) date) Instructions unknown) Recorded (unknown) (no (unknown) (unknown) Mode of arrival: (units (unknown) date) Family Vehicle unknown) (unknown) (no (unknown) (unknown) NECK: [place] (units ( unknown) date) midline. unknown) (unknown) (no (unknown) (unknown) NEURO: AOx4. (units (u nknown) date) unknown) (unknown) (no (unknown) (unknown) NEUROLOGIC: (units (un known) date) negative unknown) weakness, numbness (unknown) (no (unknown) (unknown) Narrative (units (unkn own) date) unknown) (unknown) (no (unknown) (unknown) Narrative: (units (unk nown) date) unknown) (unknown) (no (unknown) (unknown) No Action (units (unkn own) date) unknown) (unknown) (no (unknown) (unknown) No vaginal (units (unk nown) date) bleeding or unknown) discharge. Patient has had hydrocodone and Toradol for (unknown) (no (unknown) (unknown) Ondansetron HCl (units (unknown) date) (Ondansetron 4 unknown) Mg/2 Ml Inj) 4 mg IV NOW ONE (unknown) (no (unknown) (unknown) Opioids - (units (unkn own) date) Morphine unknown) Analogues Allergy Intermediate rash Verified 06/14/22 14:51 (unknown) (no (unknown) (unknown) Ordered: (units (unkno wn) date) unknown) (unknown) (no (unknown) (unknown) Orders (units (unkno wn) date) unknown) (unknown) (no (unknown) (unknown) Ovarian cyst (units (u nknown) date) unknown) (unknown) (no (unknown) (unknown) PSYCH: Not (units (unk nown) date) anxious, is unknown) cooperative (unknown) (no (unknown) (unknown) Painful (units (unkno wn) date) menstrual periods unknown) () (unknown) (no (unknown) (unknown) Patient History (units (unknown) date) unknown) (unknown) (no (unknown) (unknown) Patient here (units (u nknown) date) with fiancee. Has unknown) history of left ovarian cyst. Seen by her OBGYN (unknown) (no (unknown) (unknown) Patient: (units (unkno wn) date) Ade Vidales E unknown) MR#: [id number] (unknown) (no (unknown) (unknown) Prescriptions: (units (unknown) date) unknown) (unknown) (no (unknown) (unknown) Previous Rx's (units ( unknown) date) unknown) (unknown) (no (unknown) (unknown) RESPIRATORY: (units (un known) date) Clear to unknown) auscultation. Breath sounds equal bilaterally. No wheezes, (unknown) (no (unknown) (unknown) RESPIRATORY: (units (u nknown) date) negative dyspnea, unknown) cough (unknown) (no (unknown) (unknown) ROS Unobtainable: (units (unknown) date) All systems unknown) reviewed + are unremarkable except as noted in HPI (unknown) (no (unknown) (unknown) Referrals: (units (unk nown) date) unknown) (unknown) (no (unknown) (unknown) Related Data (units (u nknown) date) unknown) (unknown) (no (unknown) (unknown) Review of (units (unkn own) date) Systems unknown) (unknown) (no (unknown) (unknown) S/P ACL (units (unkno wn) date) reconstruction unknown) (-06/08/21) (unknown) (no (unknown) (unknown) SKIN: Warm and (units (unknown) date) dry unknown) (unknown) (no (unknown) (unknown) SKIN: negative (units (unknown) date) rash, skin unknown) lesions (unknown) (no (unknown) (unknown) Signed By: (units (unk nown) date) unknown) (unknown) (no (unknown) (unknown) Smoking Status: (units (unknown) date) Current some day unknown) smoker (unknown) (no (unknown) (unknown) Social History (units (unknown) date) (Reviewed unknown) 07/28/22 @ 02:02 by Kyle Bess MD) (unknown) (no (unknown) (unknown) Sodium Chloride (units (unknown) date) (Normal Saline unknown) 0.9%) 1,000 mls @ 1,000 mls/hr IV BOLUS ONE (unknown) (no (unknown) (unknown) Source: patient (units (unknown) date) and family unknown) (unknown) (no (unknown) (unknown) Stated (units (unkno wn) date) Complaint: N/V/D unknown) ABD PAIN (unknown) (no (unknown) (unknown) Stop: 07/28/22 (units (unknown) date) 01:50 unknown) (unknown) (no (unknown) (unknown) Stop: 07/28/22 (units (unknown) date) 02:48 unknown) (unknown) (no (unknown) (unknown) Substance Use (units ( unknown) date) Type: does not unknown) use (unknown) (no (unknown) (unknown) Surgical History (units (unknown) date) (Reviewed unknown) 07/28/22 @ 02:02 by Kyle Bess MD) (unknown) (no (unknown) (unknown) TOA (units (unkno wn) date) (tubo-ovarian unknown) abscess) (-06/28/21) (unknown) (no (unknown) (unknown) Time Seen by (units (u nknown) date) Provider: unknown) 07/28/22 01:26 (unknown) (no (unknown) (unknown) US pelvic (units (unkn own) date) complete Stat unknown) (unknown) (no (unknown) (unknown) Manny her OBGYN (units (unknown) date) and her have unknown) decided to try managed conservatively, no (unknown) (no (unknown) (unknown) alcohol intake (units (unknown) date) frequency: unknown) holidays/special occasions only (unknown) (no (unknown) (unknown) alcohol intake: (units (unknown) date) current unknown) (unknown) (no (unknown) (unknown) and below (units (unkn own) date) unknown) (unknown) (no (unknown) (unknown) and he as well (units (unknown) date) as this unknown) department back in May for the same complaint. (unknown) (no (unknown) (unknown) and other (units (unkn own) date) (UTI/ovarian unknown) torsion/ovarian cyst) (unknown) (no (unknown) (unknown) been doing well (units (unknown) date) until tonight at unknown) 8:00 p.m. had pain in the left pelvis. Had (unknown) (no (unknown) (unknown) clindamycin HCl (units (unknown) date) 150 mg capsule unknown) 150 mg PO DAILY #30 caps 03/17/22 (unknown) (no (unknown) (unknown) clindamycin HCl (units (unknown) date) 150 mg capsule unknown) (unknown) (no (unknown) (unknown) control pills (units ( unknown) date) and no surgery at unknown) this time. She has history of removal fallopian (unknown) (no (unknown) (unknown) doxycycline (units (un known) date) AdvReac unknown) Intermediate vomitt Verified 06/14/22 14:51 (unknown) (no (unknown) (unknown) has tolerated (units ( unknown) date) hydrocodone in unknown) the past without difficulty. Patient denies (unknown) (no (unknown) (unknown) household (units (unkn own) date) members: unknown) friend(s) (unknown) (no (unknown) (unknown) hydrocodone 5 (units ( unknown) date) mg-acetaminophen unknown) 325 1 tab PO Q4-6H PRN pain #10 tabs 06/07/22 (unknown) (no (unknown) (unknown) hydrocodone-acet (units (unknown) date) aminophen 5-325 unknown) mg tablet (unknown) (no (unknown) (unknown) hydromorphone 4 (units (unknown) date) mg tablet 4 mg PO unknown) Q4-6H PRN pain #20 tabs 04/08/22 (unknown) (no (unknown) (unknown) hydromorphone (units ( unknown) date) [Dilaudid] 4 mg unknown) tablet (unknown) (no (unknown) (unknown) ketorolac 10 mg (units (unknown) date) tablet 10 mg PO unknown) Q6H PRN pain #14 tabs 06/07/22 (unknown) (no (unknown) (unknown) ketorolac 10 mg (units (unknown) date) tablet unknown) (unknown) (no (unknown) (unknown) mg tablet (units (unkn own) date) unknown) (unknown) (no (unknown) (unknown) nausea and (units (unk nown) date) vomiting. Pain unknown) radiates to the left lower back. Denies . (unknown) (no (unknown) (unknown) ondansetron 4 mg (units (unknown) date) disintegrating 4 unknown) mg PO TID-QID PRN nausea and 06/07/22 (unknown) (no (unknown) (unknown) ondansetron 4 mg (units (unknown) date) tablet,disintegra unknown) ting (unknown) (no (unknown) (unknown) oxycodone 5 mg (units (unknown) date) tablet 5 mg PO unknown) Q4H PRN pain #20 tabs 04/07/22 (unknown) (no (unknown) (unknown) oxycodone 5 mg (units (unknown) date) tablet unknown) (unknown) (no (unknown) (unknown) pelvic (units (unkno wn) date) ultrasound. unknown) Patient states feels the same as past ovarian cyst. Patient (unknown) (no (unknown) (unknown) peritoneal signs (units (unknown) date) bowel sounds unknown) present. No CVA tenderness (unknown) (no (unknown) (unknown) . (units (unk nown) date) unknown) (unknown) (no (unknown) (unknown) rales, or (units (unkn own) date) rhonchi. unknown) (unknown) (no (unknown) (unknown) relief in the (units ( unknown) date) past unknown) (unknown) (no (unknown) (unknown) tablet vomiting (units (unknown) date) #10 tabs unknown) (unknown) (no (unknown) (unknown) tobacco type: (units ( unknown) date) vaping unknown) (unknown) (no (unknown) (unknown) tube on the (units (un known) date) right side due to unknown) tubo-ovarian abscess. Two years ago. Patient has Result panel 564 (unknown) (no date) (unknown) (unknown) > 60 ml/min (unkn own) (unknown) (no date) (unknown) (unknown) > 60 ml/min (unkn own) (unknown) (no date) (unknown) (unknown) 0.4 mg/dl (unkn own) (unknown) (no date) (unknown) (unknown) 0.80 mg/dl (unkn own) (unknown) (no date) (unknown) (unknown) 1.6 (units unknown) (unknown) (unknown) (no date) (unknown) (unknown) 10 mg/dl (unkn own) (unknown) (no date) (unknown) (unknown) 103 mmol/l (unkn own) (unknown) (no date) (unknown) (unknown) 12.5 (units unknown) (unknown) (unknown) (no date) (unknown) (unknown) 136 mmol/l (unkn own) (unknown) (no date) (unknown) (unknown) 136 mmol/l (unkn own) (unknown) (no date) (unknown) (unknown) 17 iu/l (unkn own) (unknown) (no date) (unknown) (unknown) 2.5 g/dl (unkn own) (unknown) (no date) (unknown) (unknown) 26 iu/l (unkn own) (unknown) (no date) (unknown) (unknown) 26 mmol/l (unkn own) (unknown) (no date) (unknown) (unknown) 3.7 mmol/l (unkn own) (unknown) (no date) (unknown) (unknown) 4.1 g/dl (unkn own) (unknown) (no date) (unknown) (unknown) 6.6 g/dl (unkn own) (unknown) (no date) (unknown) (unknown) 79 u/l (unkn own) (unknown) (no date) (unknown) (unknown) 8.6 mg/dl (unkn own) (unknown) (no date) (unknown) (unknown) 84 mg/dl (unkn own) (unknown) (no date) (unknown) (unknown) 84 mg/dl (unkn own) Result panel 565 (unknown) (no date) (unknown) (unknown) 0 /ul (unkn own) (unknown) (no date) (unknown) (unknown) 0.4 % (unkn own) (unknown) (no date) (unknown) (unknown) 12.2 g/dl (unkn own) (unknown) (no date) (unknown) (unknown) 13.4 % (unkn own) (unknown) (no date) (unknown) (unknown) 2400 /ul (unkn own) (unknown) (no date) (unknown) (unknown) 29.4 pg (unkn own) (unknown) (no date) (unknown) (unknown) 3.5 % (unkn own) (unknown) (no date) (unknown) (unknown) 300 /ul (unkn own) (unknown) (no date) (unknown) (unknown) 33.0 % (unkn own) (unknown) (no date) (unknown) (unknown) 33.4 % (unkn own) (unknown) (no date) (unknown) (unknown) 37.1 % (unkn own) (unknown) (no date) (unknown) (unknown) 372 x10 3/ul (unkn own) (unknown) (no date) (unknown) (unknown) 3800 /ul (unkn own) (unknown) (no date) (unknown) (unknown) 4.15 x10 6/ul (unkn own) (unknown) (no date) (unknown) (unknown) 53.3 % (unkn own) (unknown) (no date) (unknown) (unknown) 7.2 x10 3/ul (unkn own) (unknown) (no date) (unknown) (unknown) 700 /ul (unkn own) (unknown) (no date) (unknown) (unknown) 89.2 fl (unkn own) (unknown) (no date) (unknown) (unknown) 9.4 % (unkn own) Result panel 566 (unknown) (no (unknown) (unknown) (no value) (units (unk nown) date) unknown) (unknown) (no (unknown) (unknown) (Dilaudid) (units (unk nown) date) unknown) (unknown) (no (unknown) (unknown) [id number] (units (unkno wn) date) unknown) (unknown) (no (unknown) (unknown) 07/28/22 (units (unkno wn) date) 07/28/22 unknown) Range/Units (unknown) (no (unknown) (unknown) 07/28/22 01:48 (units (unknown) date) unknown) (unknown) (no (unknown) (unknown) 07/28/22 02:05 (units (unknown) date) unknown) (unknown) (no (unknown) (unknown) 07/28/22 (units (unkno wn) date) unknown) (unknown) (no (unknown) (unknown) 01:30 (units (unkno wn) date) unknown) (unknown) (no (unknown) (unknown) 02:05 02:05 (units (un known) date) unknown) (unknown) (no (unknown) (unknown) 1 tab PO Q4-6H (units (unknown) date) PRN (Reason: unknown) pain) Qty: 10 0RF (unknown) (no (unknown) (unknown) 10 mg PO Q6H PRN (units (unknown) date) (Reason: pain) unknown) Qty: 14 0RF (unknown) (no (unknown) (unknown) 150 mg PO DAILY (units (unknown) date) Qty: 30 0RF unknown) (unknown) (no (unknown) (unknown) 4 mg PO Q4-6H (units ( unknown) date) PRN (Reason: unknown) pain) Qty: 20 0RF (unknown) (no (unknown) (unknown) 4 mg PO TID-QID (units (unknown) date) PRN (Reason: unknown) nausea and vomiting) Qty: 10 0RF (unknown) (no (unknown) (unknown) 5 mg PO Q4H PRN (units (unknown) date) (Reason: pain) unknown) Qty: 20 0RF (unknown) (no (unknown) (unknown) ALT 17 (<35) (units (u nknown) date) IU/L unknown) (unknown) (no (unknown) (unknown) AST 26 (14-36) (units (unknown) date) IU/L unknown) (unknown) (no (unknown) (unknown) Acne (-2016) (units (u nknown) date) unknown) (unknown) (no (unknown) (unknown) Activity (units (unkno wn) date) Restrictions/Nolan unknown) tional Instructions: (unknown) (no (unknown) (unknown) After history and (units (unknown) date) exam, have unknown) decided order CBC CMP urinalysis test and (unknown) (no (unknown) (unknown) Age/Sex: 21 / F (units (unknown) date) unknown) (unknown) (no (unknown) (unknown) Albumin 4.1 (units (un known) date) (3.5-5.0) g/dL unknown) (unknown) (no (unknown) (unknown) Albumin/Globulin (units (unknown) date) Ratio 1.6 unknown) (1.0-2.8) (unknown) (no (unknown) (unknown) Alcohol type: (units ( unknown) date) wine unknown) (unknown) (no (unknown) (unknown) Alkaline (units (unkno wn) date) Phosphatase 79 unknown) (38-126) U/L (unknown) (no (unknown) (unknown) Allergies (units (unkn own) date) unknown) (unknown) (no (unknown) (unknown) Allergy/AdvReac (units (unknown) date) Type Severity unknown) Reaction Status Date / Time (unknown) (no (unknown) (unknown) Anesthesia (units (unk nown) date) unknown) (unknown) (no (unknown) (unknown) BACK: No flank (units (unknown) date) tenderness. unknown) (unknown) (no (unknown) (unknown) BUN 10 (7-17) (units ( unknown) date) mg/dL unknown) (unknown) (no (unknown) (unknown) BUN/Creatinine (units (unknown) date) Ratio 12.5 (6-22) unknown) (unknown) (no (unknown) (unknown) Baso # (Auto) 0 (units (unknown) date) (0-100) /uL unknown) (unknown) (no (unknown) (unknown) Baso % (Auto) (units ( unknown) date) 0.4 (0-2) % unknown) (unknown) (no (unknown) (unknown) Bedside Urine (units ( unknown) date) Bilirubin - unknown) Negative (unknown) (no (unknown) (unknown) Bedside Urine (units ( unknown) date) Glucose Negative unknown) (unknown) (no (unknown) (unknown) Bedside Urine (units ( unknown) date) Ketone - Negative unknown) (unknown) (no (unknown) (unknown) Bedside Urine (units ( unknown) date) Leukocytes - unknown) Negative (unknown) (no (unknown) (unknown) Bedside Urine (units ( unknown) date) Nitrite - unknown) Negative (unknown) (no (unknown) (unknown) Bedside Urine (units ( unknown) date) Occult Blood - unknown) Negative (unknown) (no (unknown) (unknown) Bedside Urine (units ( unknown) date) Protein - unknown) Negative (unknown) (no (unknown) (unknown) Bedside Urine (units ( unknown) date) Urobilinogen - unknown) Negative (unknown) (no (unknown) (unknown) Bedside Urine pH (units (unknown) date) 6.5 unknown) (unknown) (no (unknown) (unknown) Blood Pressure (units (unknown) date) 119/59 L 07/28/22 unknown) 01:30 (unknown) (no (unknown) (unknown) Blood Pressure (units (unknown) date) 119/59 L unknown) (unknown) (no (unknown) (unknown) CARDIOVASCULAR: (units (unknown) date) Regular rate and unknown) rhythm without murmurs (unknown) (no (unknown) (unknown) CARDIOVASCULAR: (units (unknown) date) negative chest unknown) pain, palpitations (unknown) (no (unknown) (unknown) CBC Auto Diff (units ( unknown) date) [Complete Blood unknown) Count AUTO DIFF] Stat (unknown) (no (unknown) (unknown) CMP (units (unkno wn) date) [Comprehensive unknown) Metabolic Panel] Stat (unknown) (no (unknown) (unknown) Calcium 8.6 (units (un known) date) (8.4-10.2) mg/dL unknown) (unknown) (no (unknown) (unknown) Carbon Dioxide (units (unknown) date) 26 (22-32) mmol/L unknown) (unknown) (no (unknown) (unknown) Chief Complaint: (units (unknown) date) Abdominal Pain unknown) (unknown) (no (unknown) (unknown) Chlamydia (units (unkn own) date) infection () unknown) (unknown) (no (unknown) (unknown) Chloride 103 (units (u nknown) date) (98-107) mmol/L unknown) (unknown) (no (unknown) (unknown) Chronic (units (unkno wn) date) Condition is unknown) having:: Moderate exacerbation (unknown) (no (unknown) (unknown) Clinical (units (unkno wn) date) Impression: unknown) (unknown) (no (unknown) (unknown) Condition is:: (units (unknown) date) Well Controlled unknown) (unknown) (no (unknown) (unknown) Course (units (unkno wn) date) unknown) (unknown) (no (unknown) (unknown) Creatinine 0.80 (units (unknown) date) (0.52-1.04) mg/dL unknown) (unknown) (no (unknown) (unknown) : 2000 (units (unknown) date) Acct:[id number] unknown) (unknown) (no (unknown) (unknown) Date of Service: (units (unknown) date) 07/28/22 unknown) (unknown) (no (unknown) (unknown) Departure (units (unkn own) date) unknown) (unknown) (no (unknown) (unknown) Differential (units (u nknown) date) Diagnosis unknown) (unknown) (no (unknown) (unknown) Differential (units (un known) date) diagnosis: Likely unknown) abdominal pain, calculus of kidney, endometriosis (unknown) (no (unknown) (unknown) Discharge Plan (units (unknown) date) unknown) (unknown) (no (unknown) (unknown) Discontinued (units (u nknown) date) Medications unknown) (unknown) (no (unknown) (unknown) Documented By: (units (unknown) date) BS unknown) (unknown) (no (unknown) (unknown) ED Orders (units (unkn own) date) unknown) (unknown) (no (unknown) (unknown) ER Physician: (units ( unknown) date) Kyle Bess MD unknown) (unknown) (no (unknown) (unknown) EXTREMITIES: No (units (unknown) date) gross unknown) deformities. (unknown) (no (unknown) (unknown) EYES: Pupils (units (u nknown) date) equal round unknown) (unknown) (no (unknown) (unknown) Emergency Report (units (unknown) date) unknown) (unknown) (no (unknown) (unknown) Endometriosis (units ( unknown) date) (-2020) unknown) (unknown) (no (unknown) (unknown) Eos # (Auto) 300 (units (unknown) date) (0-450) /uL unknown) (unknown) (no (unknown) (unknown) Eos % (Auto) 3.5 (units (unknown) date) (2-4) % unknown) (unknown) (no (unknown) (unknown) Esterase (units (unkno wn) date) unknown) (unknown) (no (unknown) (unknown) Estimated GFR > (units (unknown) date) 60 (>60) mL/min unknown) (unknown) (no (unknown) (unknown) Exam Narrative: (units (unknown) date) unknown) (unknown) (no (unknown) (unknown) Exam (units (unkno wn) date) unknown) (unknown) (no (unknown) (unknown) GASTROINTESTINAL (units (unknown) date) : Abdomen soft, unknown) reproducible left lower quadrant tenderness no (unknown) (no (unknown) (unknown) GASTROINTESTINAL (units (unknown) date) : Positive unknown) nausea, vomiting, abdominal pain (unknown) (no (unknown) (unknown) GENERAL: in no (units (unknown) date) distress, not unknown) toxic not dyspneic (unknown) (no (unknown) (unknown) GENERAL: (units (unkno wn) date) negative chills, unknown) fatigue, malaise, fever, sweats. (unknown) (no (unknown) (unknown) : negative (units (u nknown) date) dysuria, unknown) frequency, hematuria (unknown) (no (unknown) (unknown) General (units (unkno wn) date) unknown) (unknown) (no (unknown) (unknown) Globulin 2.5 (units (u nknown) date) (1.7-4.1) g/dL unknown) (unknown) (no (unknown) (unknown) Glucose 84 (units (unk nown) date) (70-100) mg/dL unknown) (unknown) (no (unknown) (unknown) HEAD: (units (unkno wn) date) Normocephalic. unknown) (unknown) (no (unknown) (unknown) HEENT: negative (units (unknown) date) sinus pain, ear unknown) pain, sore throat (unknown) (no (unknown) (unknown) HPI - Abdominal (units (unknown) date) Pain unknown) (unknown) (no (unknown) (unknown) HPI narrative: (units (unknown) date) unknown) (unknown) (no (unknown) (unknown) Hct 37.1 (36-46) (units (unknown) date) % unknown) (unknown) (no (unknown) (unknown) Heavy menstrual (units (unknown) date) period (-2019) unknown) (unknown) (no (unknown) (unknown) Hgb 12.2 (units (unkno wn) date) (12.0-16.0) g/dL unknown) (unknown) (no (unknown) (unknown) History of (units (unk nown) date) Present Illness unknown) (unknown) (no (unknown) (unknown) Hydrocodone (units (un known) date) Bitart/Acetaminop unknown) hen (Hydrocodone/Acet 5/325 Tablet) 1 tab PO NOW (unknown) (no (unknown) (unknown) Hydrocodone (units (un known) date) Bitart/Acetaminop unknown) hen (Hydrocodone/Acet 5/325 Tablet) 2 tab PO NOW (unknown) (no (unknown) (unknown) I did review (units (u nknown) date) medical records unknown) from May 2022 as well as pelvic ultrasound (unknown) (no (unknown) (unknown) Initial Vital (units ( unknown) date) Signs unknown) (unknown) (no (unknown) (unknown) Initial Vital (units ( unknown) date) Signs: unknown) (unknown) (no (unknown) (unknown) Instructions: DI (units (unknown) date) for Ovarian Cyst unknown) (unknown) (no (unknown) (unknown) Irregular (units (unkn own) date) menstrual cycle unknown) () (unknown) (no (unknown) (unknown) [facility] (units (unknown) date) [address] unknown) [place] [address] (unknown) (no (unknown) (unknown) Joel Abrams (units (unknown) date) THOMAS dasilvaP [Primary unknown) Care Provider] (unknown) (no (unknown) (unknown) Ketorolac (units (unkn own) date) Tromethamine unknown) (Ketorolac 30 Mg/Ml Vial) 15 mg IV NOW ONE (unknown) (no (unknown) (unknown) Lab Data (units (unkno wn) date) unknown) (unknown) (no (unknown) (unknown) Lab Results (units (un known) date) unknown) (unknown) (no (unknown) (unknown) Labs: (units (unkno wn) date) unknown) (unknown) (no (unknown) (unknown) Last Admin: (units (un known) date) 07/28/22 02:38 unknown) Dose: 15 mg (unknown) (no (unknown) (unknown) Last Admin: (units (un known) date) 07/28/22 02:39 unknown) Dose: 2 tab (unknown) (no (unknown) (unknown) Last Admin: (units (un known) date) 07/28/22 02:39 unknown) Dose: 4 mg (unknown) (no (unknown) (unknown) Last Admin: (units (un known) date) 07/28/22 02:40 unknown) Dose: 1,000 mls/hr (unknown) (no (unknown) (unknown) Last Admin: (units (un known) date) 07/28/22 02:41 unknown) Dose: Not Given (unknown) (no (unknown) (unknown) Limitations: no (units (unknown) date) limitations unknown) (unknown) (no (unknown) (unknown) Lymph # (Auto) (units (unknown) date) 2400 ([id number]) unknown) /uL (unknown) (no (unknown) (unknown) Lymph % (Auto) (units (unknown) date) 33.4 (25-40) % unknown) (unknown) (no (unknown) (unknown) Lymphangioma (units (u nknown) date) unknown) (unknown) (no (unknown) (unknown) MCH 29.4 (26-34) (units (unknown) date) PG unknown) (unknown) (no (unknown) (unknown) MCHC 33.0 (units (unkn own) date) (30-36) % unknown) (unknown) (no (unknown) (unknown) MCV 89.2 (units (unkno wn) date) (80-100) fL unknown) (unknown) (no (unknown) (unknown) MDM - Abdominal (units (unknown) date) Pain unknown) (unknown) (no (unknown) (unknown) MDM Narrative (units ( unknown) date) unknown) (unknown) (no (unknown) (unknown) MUSCULOSKELETAL: (units (unknown) date) negative muscle unknown) or bony pain (unknown) (no (unknown) (unknown) Medical History (units (unknown) date) (Reviewed unknown) 07/28/22 @ 02:02 by Kyle Bess MD) (unknown) (no (unknown) (unknown) Medical Records (units (unknown) date) unknown) (unknown) (no (unknown) (unknown) Medical decision (units (unknown) date) making narrative: unknown) (unknown) (no (unknown) (unknown) Medical records (units (unknown) date) narrative: unknown) (unknown) (no (unknown) (unknown) Medication (units (unk nown) date) Instructions unknown) Recorded (unknown) (no (unknown) (unknown) Mode of arrival: (units (unknown) date) Family Vehicle unknown) (unknown) (no (unknown) (unknown) [place] # (Auto) (units ( unknown) date) 700 (0-900) /uL unknown) (unknown) (no (unknown) (unknown) [place] % (Auto) (units ( unknown) date) 9.4 (3-14) % unknown) (unknown) (no (unknown) (unknown) NECK: Trachea (units ( unknown) date) midline. unknown) (unknown) (no (unknown) (unknown) NEURO: AOx4. (units (u nknown) date) unknown) (unknown) (no (unknown) (unknown) NEUROLOGIC: (units (un known) date) negative unknown) weakness, numbness (unknown) (no (unknown) (unknown) Narrative (units (unkn own) date) unknown) (unknown) (no (unknown) (unknown) Narrative: (units (unk nown) date) unknown) (unknown) (no (unknown) (unknown) Neut # (Auto) (units ( unknown) date) 3800 (5232-7491) unknown) /uL (unknown) (no (unknown) (unknown) Neut % (Auto) (units ( unknown) date) 53.3 (50-75) % unknown) (unknown) (no (unknown) (unknown) No Action (units (unkn own) date) unknown) (unknown) (no (unknown) (unknown) No driving or (units ( unknown) date) operating unknown) machinery this morning/today or when taking prescribed (unknown) (no (unknown) (unknown) No vaginal (units (unk nown) date) bleeding or unknown) discharge. Patient has had hydrocodone and Toradol for (unknown) (no (unknown) (unknown) ONE (units (unkno wn) date) unknown) (unknown) (no (unknown) (unknown) Ondansetron HCl (units (unknown) date) (Ondansetron 4 unknown) Mg/2 Ml Inj) 4 mg IV NOW ONE (unknown) (no (unknown) (unknown) Opioids - (units (unkn own) date) Morphine unknown) Analogues Allergy Intermediate rash Verified 06/14/22 14:51 (unknown) (no (unknown) (unknown) Ordered: (units (unkno wn) date) unknown) (unknown) (no (unknown) (unknown) Orders (units (unkno wn) date) unknown) (unknown) (no (unknown) (unknown) Ovarian cyst (units (u nknown) date) unknown) (unknown) (no (unknown) (unknown) Oxygen Delivery (units (unknown) date) Method 07/28/22 unknown) 01:30 (unknown) (no (unknown) (unknown) Oxygen Delivery (units (unknown) date) Method Room Air unknown) (unknown) (no (unknown) (unknown) PSYCH: Not (units (unk nown) date) anxious, is unknown) cooperative (unknown) (no (unknown) (unknown) Painful (units (unkno wn) date) menstrual periods unknown) (-2020) (unknown) (no (unknown) (unknown) Patient (units (unkno wn) date) Disposition: Home unknown) (unknown) (no (unknown) (unknown) Patient History (units (unknown) date) unknown) (unknown) (no (unknown) (unknown) Patient has (units (un known) date) tolerated unknown) hydrocodone in the past without difficulty. Patient (unknown) (no (unknown) (unknown) Patient here (units (u nknown) date) with fiancee. Has unknown) history of left ovarian cyst. Seen by her OBGYN (unknown) (no (unknown) (unknown) Patient: (units (unkno wn) date) Ade Vidales unknown) MR#: [id number] (unknown) (no (unknown) (unknown) Plt Count 372 (units ( unknown) date) (150-400) X103/uL unknown) (unknown) (no (unknown) (unknown) Point of Care (units ( unknown) date) Testing unknown) (unknown) (no (unknown) (unknown) Point of care (units ( unknown) date) testing: unknown) (unknown) (no (unknown) (unknown) Potassium 3.7 (units ( unknown) date) (3.4-5.1) mmol/L unknown) (unknown) (no (unknown) (unknown) Test (units (unknown) date) Results Negative unknown) (unknown) (no (unknown) (unknown) Prescriptions: (units (unknown) date) unknown) (unknown) (no (unknown) (unknown) Previous Rx's (units ( unknown) date) unknown) (unknown) (no (unknown) (unknown) Pulse Oximetry (units (unknown) date) 98 07/28/22 01:30 unknown) (unknown) (no (unknown) (unknown) Pulse Oximetry (units (unknown) date) 98 unknown) (unknown) (no (unknown) (unknown) Pulse Rate 75 (units ( unknown) date) 07/28/22 01:30 unknown) (unknown) (no (unknown) (unknown) Pulse Rate 75 (units ( unknown) date) unknown) (unknown) (no (unknown) (unknown) RBC 4.15 (units (unkno wn) date) (4.0-5.2) X106/uL unknown) (unknown) (no (unknown) (unknown) RDW 13.4 (units (unkno wn) date) (11.6-14.8) % unknown) (unknown) (no (unknown) (unknown) RESPIRATORY: (units (un known) date) Clear to unknown) auscultation. Breath sounds equal bilaterally. No wheezes, (unknown) (no (unknown) (unknown) RESPIRATORY: (units (u nknown) date) negative dyspnea, unknown) cough (unknown) (no (unknown) (unknown) ROS Unobtainable: (units (unknown) date) All systems unknown) reviewed + are unremarkable except as noted in HPI (unknown) (no (unknown) (unknown) Referrals: (units (unk nown) date) unknown) (unknown) (no (unknown) (unknown) Related Data (units (u nknown) date) unknown) (unknown) (no (unknown) (unknown) Respiratory Rate (units (unknown) date) 16 07/28/22 01:30 unknown) (unknown) (no (unknown) (unknown) Respiratory Rate (units (unknown) date) 16 unknown) (unknown) (no (unknown) (unknown) Result diagrams: (units (unknown) date) unknown) (unknown) (no (unknown) (unknown) Return if worse (units (unknown) date) if any questions unknown) or concerns. (unknown) (no (unknown) (unknown) Review of (units (unkn own) date) Systems unknown) (unknown) (no (unknown) (unknown) S/P ACL (units (unkno wn) date) reconstruction unknown) (-06/08/21) (unknown) (no (unknown) (unknown) SKIN: Warm and (units (unknown) date) dry unknown) (unknown) (no (unknown) (unknown) SKIN: negative (units (unknown) date) rash, skin unknown) lesions (unknown) (no (unknown) (unknown) Signed By: (units (unk nown) date) unknown) (unknown) (no (unknown) (unknown) Smoking Status: (units (unknown) date) Current some day unknown) smoker (unknown) (no (unknown) (unknown) Social History (units (unknown) date) (Reviewed unknown) 07/28/22 @ 02:02 by Kyle Bess MD) (unknown) (no (unknown) (unknown) Sodium 136 L (units (u nknown) date) (137-145) mmol/L unknown) (unknown) (no (unknown) (unknown) Sodium Chloride (units (unknown) date) (Normal Saline unknown) 0.9%) 1,000 mls @ 1,000 mls/hr IV BOLUS ONE (unknown) (no (unknown) (unknown) Source: patient (units (unknown) date) and family unknown) (unknown) (no (unknown) (unknown) Stand Alone (units (un known) date) Forms: Patient unknown) Portal/API, Work Release Note (unknown) (no (unknown) (unknown) Stated (units (unkno wn) date) Complaint: N/V/D unknown) ABD PAIN (unknown) (no (unknown) (unknown) Stop: 07/28/22 (units (unknown) date) 01:50 unknown) (unknown) (no (unknown) (unknown) Stop: 07/28/22 (units (unknown) date) 02:01 unknown) (unknown) (no (unknown) (unknown) Stop: 07/28/22 (units (unknown) date) 02:32 unknown) (unknown) (no (unknown) (unknown) Stop: 07/28/22 (units (unknown) date) 02:48 unknown) (unknown) (no (unknown) (unknown) Substance Use (units ( unknown) date) Type: does not unknown) use (unknown) (no (unknown) (unknown) Surgical History (units (unknown) date) (Reviewed unknown) 07/28/22 @ 02:02 by Kyle Bess MD) (unknown) (no (unknown) (unknown) TOA (units (unkno wn) date) (tubo-ovarian unknown) abscess) (-06/28/21) (unknown) (no (unknown) (unknown) Time Seen by (units (u nknown) date) Provider: unknown) 07/28/22 01:26 (unknown) (no (unknown) (unknown) Total Bilirubin (units (unknown) date) 0.4 (0.2-1.3) unknown) mg/dL (unknown) (no (unknown) (unknown) Total Protein (units ( unknown) date) 6.6 (6.3-8.2) unknown) g/dL (unknown) (no (unknown) (unknown) US pelvic (units (unkn own) date) complete Stat unknown) (unknown) (no (unknown) (unknown) Urine Dip (units (unkn own) date) unknown) (unknown) (no (unknown) (unknown) Urine Specific (units (unknown) date) [place] 1.010 unknown) (unknown) (no (unknown) (unknown) Vital Signs - 8 (units (unknown) date) hr unknown) (unknown) (no (unknown) (unknown) Vital Signs (units (un known) date) unknown) (unknown) (no (unknown) (unknown) Vital signs: (units (u nknown) date) unknown) (unknown) (no (unknown) (unknown) WBC 7.2 (units (unkno wn) date) (4.5-11.0) unknown) X103/uL (unknown) (no (unknown) (unknown) Manny her OBGYN (units (unknown) date) and her have unknown) decided to try managed conservatively, no (unknown) (no (unknown) (unknown) Sushant Bryant, (units (unknown) date) [Physician] unknown) (unknown) (no (unknown) (unknown) [Embedded Image (units (unknown) date) Not Available] unknown) (unknown) (no (unknown) (unknown) alcohol intake (units (unknown) date) frequency: unknown) holidays/special occasions only (unknown) (no (unknown) (unknown) alcohol intake: (units (unknown) date) current unknown) (unknown) (no (unknown) (unknown) and below (units (unkn own) date) unknown) (unknown) (no (unknown) (unknown) and he as well (units (unknown) date) as this unknown) department back in May for the same complaint. (unknown) (no (unknown) (unknown) and other (units (unkn own) date) (UTI/ovarian unknown) torsion/ovarian cyst) (unknown) (no (unknown) (unknown) appointment for (units (unknown) date) re-evaluation and unknown) continue treatment plan for your ovarian cyst. (unknown) (no (unknown) (unknown) been doing well (units (unknown) date) until tonight at unknown) 8:00 p.m. had pain in the left pelvis. Had (unknown) (no (unknown) (unknown) clindamycin HCl (units (unknown) date) 150 mg capsule unknown) 150 mg PO DAILY #30 caps 03/17/22 (unknown) (no (unknown) (unknown) clindamycin HCl (units (unknown) date) 150 mg capsule unknown) (unknown) (no (unknown) (unknown) control pills (units ( unknown) date) and no surgery at unknown) this time. She has history of removal fallopian (unknown) (no (unknown) (unknown) denies (units (unkno wn) date) . unknown) (unknown) (no (unknown) (unknown) doxycycline (units (un known) date) AdvReac unknown) Intermediate roxannitt Verified 06/14/22 14:51 (unknown) (no (unknown) (unknown) has been doing (units (unknown) date) well until unknown) tonight at 8:00 p.m. had pain in the left pelvis. Had (unknown) (no (unknown) (unknown) household (units (unkn own) date) members: unknown) friend(s) (unknown) (no (unknown) (unknown) hydrocodone 5 (units ( unknown) date) mg-acetaminophen unknown) 325 1 tab PO Q4-6H PRN pain #10 tabs 06/07/22 (unknown) (no (unknown) (unknown) hydrocodone-acet (units (unknown) date) aminophen 5-325 unknown) mg tablet (unknown) (no (unknown) (unknown) hydromorphone 4 (units (unknown) date) mg tablet 4 mg PO unknown) Q4-6H PRN pain #20 tabs 04/08/22 (unknown) (no (unknown) (unknown) hydromorphone (units ( unknown) date) [Dilaudid] 4 mg unknown) tablet (unknown) (no (unknown) (unknown) ketorolac 10 mg (units (unknown) date) tablet 10 mg PO unknown) Q6H PRN pain #14 tabs 06/07/22 (unknown) (no (unknown) (unknown) ketorolac 10 mg (units (unknown) date) tablet unknown) (unknown) (no (unknown) (unknown) mg tablet (units (unkn own) date) unknown) (unknown) (no (unknown) (unknown) nausea and (units (unk nown) date) vomiting. Pain unknown) radiates to the left lower back. Denies . (unknown) (no (unknown) (unknown) ondansetron 4 mg (units (unknown) date) disintegrating 4 unknown) mg PO TID-QID PRN nausea and 06/07/22 (unknown) (no (unknown) (unknown) ondansetron 4 mg (units (unknown) date) tablet,disintegra unknown) ting (unknown) (no (unknown) (unknown) oxycodone 5 mg (units (unknown) date) tablet 5 mg PO unknown) Q4H PRN pain #20 tabs 04/07/22 (unknown) (no (unknown) (unknown) oxycodone 5 mg (units (unknown) date) tablet unknown) (unknown) (no (unknown) (unknown) pain medication. (units (unknown) date) Call Dr. Bryant, unknown) your OBGYN doctor today for office (unknown) (no (unknown) (unknown) pelvic (units (unkno wn) date) ultrasound. unknown) Patient states feels the same as past ovarian cyst. (unknown) (no (unknown) (unknown) peritoneal signs (units (unknown) date) bowel sounds unknown) present. No CVA tenderness (unknown) (no (unknown) (unknown) rales, or (units (unkn own) date) rhonchi. unknown) (unknown) (no (unknown) (unknown) relief in the (units ( unknown) date) past unknown) (unknown) (no (unknown) (unknown) tablet vomiting (units (unknown) date) #10 tabs unknown) (unknown) (no (unknown) (unknown) tobacco type: (units ( unknown) date) vaping unknown) (unknown) (no (unknown) (unknown) tube on the (units (un known) date) right side due to unknown) tubo-ovarian abscess. Two years ago. Patient has (unknown) (no (unknown) (unknown) tube on the (units (un known) date) right side due to unknown) tubo-ovarian abscess. Two years ago. Patient Result panel [id number] (unknown) (no (unknown) (unknown) (no value) (units (unk nown) date) unknown) (unknown) (no (unknown) (unknown) (Dilaudid) (units (unk nown) date) unknown) (unknown) (no (unknown) (unknown) [id number] (units (unkno wn) date) unknown) (unknown) (no (unknown) (unknown) 07/28/22 (units (unkno wn) date) 07/28/22 unknown) Range/Units (unknown) (no (unknown) (unknown) 07/28/22 01:48 (units (unknown) date) unknown) (unknown) (no (unknown) (unknown) 07/28/22 02:05 (units (unknown) date) unknown) (unknown) (no (unknown) (unknown) 07/28/22 (units (unkno wn) date) unknown) (unknown) (no (unknown) (unknown) 01:30 (units (unkno wn) date) unknown) (unknown) (no (unknown) (unknown) 02:05 02:05 (units (un known) date) unknown) (unknown) (no (unknown) (unknown) 1 tab PO Q4-6H (units (unknown) date) PRN (Reason: unknown) pain) Qty: 10 0RF (unknown) (no (unknown) (unknown) 10 mg PO Q6H PRN (units (unknown) date) (Reason: pain) unknown) Qty: 14 0RF (unknown) (no (unknown) (unknown) 150 mg PO DAILY (units (unknown) date) Qty: 30 0RF unknown) (unknown) (no (unknown) (unknown) 3:26 a.m.. I (units (u nknown) date) have reviewed CBC unknown) CMP urinalysis and pelvic ultrasound results. (unknown) (no (unknown) (unknown) 4 mg PO Q4-6H (units ( unknown) date) PRN (Reason: unknown) pain) Qty: 20 0RF (unknown) (no (unknown) (unknown) 4 mg PO TID-QID (units (unknown) date) PRN (Reason: unknown) nausea and vomiting) Qty: 10 0RF (unknown) (no (unknown) (unknown) 5 mg PO Q4H PRN (units (unknown) date) (Reason: pain) unknown) Qty: 20 0RF (unknown) (no (unknown) (unknown) ALT 17 (<35) (units (u nknown) date) IU/L unknown) (unknown) (no (unknown) (unknown) AST 26 (14-36) (units (unknown) date) IU/L unknown) (unknown) (no (unknown) (unknown) [place]ne (-2016) (units (u nknown) date) unknown) (unknown) (no (unknown) (unknown) Activity (units (unkno wn) date) Restrictions/[place]olan unknown) tional Instructions: (unknown) (no (unknown) (unknown) After history and (units (unknown) date) exam, have unknown) decided order CBC CMP urinalysis test and (unknown) (no (unknown) (unknown) Age/Sex: 21 / F (units (unknown) date) unknown) (unknown) (no (unknown) (unknown) Albumin 4.1 (units (un known) date) (3.5-5.0) g/dL unknown) (unknown) (no (unknown) (unknown) Albumin/Globulin (units (unknown) date) Ratio 1.6 unknown) (1.0-2.8) (unknown) (no (unknown) (unknown) Alcohol type: (units ( unknown) date) wine unknown) (unknown) (no (unknown) (unknown) Alkaline (units (unkno wn) date) Phosphatase 79 unknown) (38-126) U/L (unknown) (no (unknown) (unknown) Allergies (units (unkn own) date) unknown) (unknown) (no (unknown) (unknown) Allergy/AdvReac (units (unknown) date) Type Severity unknown) Reaction Status Date / Time (unknown) (no (unknown) (unknown) Anesthesia (units (unk nown) date) unknown) (unknown) (no (unknown) (unknown) Appropriate for (units (unknown) date) discharge home. unknown) Laboratory studies otherwise reassuring. Work (unknown) (no (unknown) (unknown) At this time (units (u nknown) date) left ovarian cyst unknown) does measure smaller zone this past May. (unknown) (no (unknown) (unknown) BACK: No flank (units (unknown) date) tenderness. unknown) (unknown) (no (unknown) (unknown) BUN 10 (7-17) (units ( unknown) date) mg/dL unknown) (unknown) (no (unknown) (unknown) BUN/Creatinine (units (unknown) date) Ratio 12.5 (6-22) unknown) (unknown) (no (unknown) (unknown) Baso # (Auto) 0 (units (unknown) date) (0-100) /uL unknown) (unknown) (no (unknown) (unknown) Baso % (Auto) (units ( unknown) date) 0.4 (0-2) % unknown) (unknown) (no (unknown) (unknown) Bedside Urine (units ( unknown) date) Bilirubin - unknown) Negative (unknown) (no (unknown) (unknown) Bedside Urine (units ( unknown) date) Glucose Negative unknown) (unknown) (no (unknown) (unknown) Bedside Urine (units ( unknown) date) Ketone - Negative unknown) (unknown) (no (unknown) (unknown) Bedside Urine (units ( unknown) date) Leukocytes - unknown) Negative (unknown) (no (unknown) (unknown) Bedside Urine (units ( unknown) date) Nitrite - unknown) Negative (unknown) (no (unknown) (unknown) Bedside Urine (units ( unknown) date) Occult Blood - unknown) Negative (unknown) (no (unknown) (unknown) Bedside Urine (units ( unknown) date) Protein - unknown) Negative (unknown) (no (unknown) (unknown) Bedside Urine (units ( unknown) date) Urobilinogen - unknown) Negative (unknown) (no (unknown) (unknown) Bedside Urine pH (units (unknown) date) 6.5 unknown) (unknown) (no (unknown) (unknown) Blood Pressure (units (unknown) date) 119/59 L 07/28/22 unknown) 01:30 (unknown) (no (unknown) (unknown) Blood Pressure (units (unknown) date) 119/59 L unknown) (unknown) (no (unknown) (unknown) CARDIOVASCULAR: (units (unknown) date) Regular rate and unknown) rhythm without murmurs (unknown) (no (unknown) (unknown) CARDIOVASCULAR: (units (unknown) date) negative chest unknown) pain, palpitations (unknown) (no (unknown) (unknown) CBC Auto Diff (units ( unknown) date) [Complete Blood unknown) Count AUTO DIFF] Stat (unknown) (no (unknown) (unknown) CMP (units (unkno wn) date) [Comprehensive unknown) Metabolic Panel] Stat (unknown) (no (unknown) (unknown) Calcium 8.6 (units (un known) date) (8.4-10.2) mg/dL unknown) (unknown) (no (unknown) (unknown) Carbon Dioxide (units (unknown) date) 26 (22-32) mmol/L unknown) (unknown) (no (unknown) (unknown) Chief Complaint: (units (unknown) date) Abdominal Pain unknown) (unknown) (no (unknown) (unknown) Chlamydia (units (unkn own) date) infection () unknown) (unknown) (no (unknown) (unknown) Chloride 103 (units (u nknown) date) (98-107) mmol/L unknown) (unknown) (no (unknown) (unknown) Chronic (units (unkno wn) date) Condition is unknown) having:: Moderate exacerbation (unknown) (no (unknown) (unknown) Clinical (units (unkno wn) date) Impression: unknown) (unknown) (no (unknown) (unknown) Condition is:: (units (unknown) date) Well Controlled unknown) (unknown) (no (unknown) (unknown) Course (units (unkno wn) date) unknown) (unknown) (no (unknown) (unknown) Creatinine 0.80 (units (unknown) date) (0.52-1.04) mg/dL unknown) (unknown) (no (unknown) (unknown) : 2000 (units (unknown) date) Acct:[id number] unknown) (unknown) (no (unknown) (unknown) Date of Service: (units (unknown) date) 07/28/22 unknown) (unknown) (no (unknown) (unknown) Departure (units (unkn own) date) unknown) (unknown) (no (unknown) (unknown) Differential (units (u nknown) date) Diagnosis unknown) (unknown) (no (unknown) (unknown) Differential (units (un known) date) diagnosis: Likely unknown) abdominal pain, calculus of kidney, endometriosis (unknown) (no (unknown) (unknown) Discharge Plan (units (unknown) date) unknown) (unknown) (no (unknown) (unknown) Discontinued (units (u nknown) date) Medications unknown) (unknown) (no (unknown) (unknown) Documented By: (units (unknown) date) BS unknown) (unknown) (no (unknown) (unknown) ED Orders (units (unkn own) date) unknown) (unknown) (no (unknown) (unknown) ER Physician: (units ( unknown) date) Kyle Bess MD unknown) (unknown) (no (unknown) (unknown) EXTREMITIES: No (units (unknown) date) gross unknown) deformities. (unknown) (no (unknown) (unknown) EYES: Pupils (units (u nknown) date) equal round unknown) (unknown) (no (unknown) (unknown) Emergency Report (units (unknown) date) unknown) (unknown) (no (unknown) (unknown) Endometriosis (units ( unknown) date) (-2020) unknown) (unknown) (no (unknown) (unknown) Eos # (Auto) 300 (units (unknown) date) (0-450) /uL unknown) (unknown) (no (unknown) (unknown) Eos % (Auto) 3.5 (units (unknown) date) (2-4) % unknown) (unknown) (no (unknown) (unknown) Esterase (units (unkno wn) date) unknown) (unknown) (no (unknown) (unknown) Estimated GFR > (units (unknown) date) 60 (>60) mL/min unknown) (unknown) (no (unknown) (unknown) Exam Narrative: (units (unknown) date) unknown) (unknown) (no (unknown) (unknown) Exam (units (unkno wn) date) unknown) (unknown) (no (unknown) (unknown) GASTROINTESTINAL (units (unknown) date) : Abdomen soft, unknown) reproducible left lower quadrant tenderness no (unknown) (no (unknown) (unknown) GASTROINTESTINAL (units (unknown) date) : Positive unknown) nausea, vomiting, abdominal pain (unknown) (no (unknown) (unknown) GENERAL: in no (units (unknown) date) distress, not unknown) toxic not dyspneic (unknown) (no (unknown) (unknown) GENERAL: (units (unkno wn) date) negative chills, unknown) fatigue, malaise, fever, sweats. (unknown) (no (unknown) (unknown) : negative (units (u nknown) date) dysuria, unknown) frequency, hematuria (unknown) (no (unknown) (unknown) General (units (unkno wn) date) unknown) (unknown) (no (unknown) (unknown) Globulin 2.5 (units (u nknown) date) (1.7-4.1) g/dL unknown) (unknown) (no (unknown) (unknown) Glucose 84 (units (unk n) date) (70-100) mg/dL unknown) (unknown) (no (unknown) (unknown) HEAD: (units (o wn) date) Normocephalic. unknown) (unknown) (no (unknown) (unknown) HEENT: negative (units (unknown) date) sinus pain, ear unknown) pain, sore throat (unknown) (no (unknown) (unknown) HPI - Abdominal (units (unknown) date) Pain unknown) (unknown) (no (unknown) (unknown) HPI narrative: (units (unknown) date) unknown) (unknown) (no (unknown) (unknown) Hct 37.1 (36-46) (units (unknown) date) % unknown) (unknown) (no (unknown) (unknown) Heavy menstrual (units (unknown) date) period (-2019) unknown) (unknown) (no (unknown) (unknown) Hgb 12.2 (units (unkno wn) date) (12.0-16.0) g/dL unknown) (unknown) (no (unknown) (unknown) History of (units (unk n) date) Present Illness unknown) (unknown) (no (unknown) (unknown) Hydrocodone (units (un known) date) Bitart/Acetaminop unknown) hen (Hydrocodone/Acet 5/325 Tablet) 1 tab PO NOW (unknown) (no (unknown) (unknown) Hydrocodone (units (un known) date) Bitart/Acetaminop unknown) hen (Hydrocodone/Acet 5/325 Tablet) 2 tab PO NOW (unknown) (no (unknown) (unknown) I did review (units (u nknown) date) medical records unknown) from May 2022 as well as pelvic ultrasound (unknown) (no (unknown) (unknown) Imaging Data (units (u nknown) date) unknown) (unknown) (no (unknown) (unknown) Initial Vital (units ( unknown) date) Signs unknown) (unknown) (no (unknown) (unknown) Initial Vital (units ( unknown) date) Signs: unknown) (unknown) (no (unknown) (unknown) Instructions: DI (units (unknown) date) for Ovarian Cyst unknown) (unknown) (no (unknown) (unknown) Irregular (units (unkn own) date) menstrual cycle unknown) () (unknown) (no (unknown) (unknown) [facility] (units (unknown) date) [address] unknown) [place] [address] (unknown) (no (unknown) (unknown) Joel Abrams (units (unknown) date) ELEUTERIO dasilva [Primary unknown) Care Provider] (unknown) (no (unknown) (unknown) Ketorolac (units (unkn own) date) Tromethamine unknown) (Ketorolac 30 Mg/Ml Vial) 15 mg IV NOW ONE (unknown) (no (unknown) (unknown) Lab Data (units (unkno wn) date) unknown) (unknown) (no (unknown) (unknown) Lab Results (units (un known) date) unknown) (unknown) (no (unknown) (unknown) Labs: (units (unkno wn) date) unknown) (unknown) (no (unknown) (unknown) Last Admin: (units (un known) date) 07/28/22 02:38 unknown) Dose: 15 mg (unknown) (no (unknown) (unknown) Last Admin: (units (un known) date) 07/28/22 02:39 unknown) Dose: 2 tab (unknown) (no (unknown) (unknown) Last Admin: (units (un known) date) 07/28/22 02:39 unknown) Dose: 4 mg (unknown) (no (unknown) (unknown) Last Admin: (units (un known) date) 07/28/22 02:40 unknown) Dose: 1,000 mls/hr (unknown) (no (unknown) (unknown) Last Admin: (units (un known) date) 07/28/22 02:41 unknown) Dose: Not Given (unknown) (no (unknown) (unknown) Limitations: no (units (unknown) date) limitations unknown) (unknown) (no (unknown) (unknown) Lymph # (Auto) (units (unknown) date) 2400 (7320-7149) unknown) /uL (unknown) (no (unknown) (unknown) Lymph % (Auto) (units (unknown) date) 33.4 (25-40) % unknown) (unknown) (no (unknown) (unknown) Lymphangioma (units (u nknown) date) unknown) (unknown) (no (unknown) (unknown) MCH 29.4 (26-34) (units (unknown) date) PG unknown) (unknown) (no (unknown) (unknown) MCHC 33.0 (units (unkn own) date) (30-36) % unknown) (unknown) (no (unknown) (unknown) MCV 89.2 (units (unkno wn) date) (80-100) fL unknown) (unknown) (no (unknown) (unknown) MDM - Abdominal (units (unknown) date) Pain unknown) (unknown) (no (unknown) (unknown) MDM Narrative (units ( unknown) date) unknown) (unknown) (no (unknown) (unknown) MUSCULOSKELETAL: (units (unknown) date) negative muscle unknown) or bony pain (unknown) (no (unknown) (unknown) Medical History (units (unknown) date) (Reviewed unknown) 07/28/22 @ 02:02 by Kyle Bess MD) (unknown) (no (unknown) (unknown) Medical Records (units (unknown) date) unknown) (unknown) (no (unknown) (unknown) Medical decision (units (unknown) date) making narrative: unknown) (unknown) (no (unknown) (unknown) Medical records (units (unknown) date) narrative: unknown) (unknown) (no (unknown) (unknown) Medication (units (unk nown) date) Instructions unknown) Recorded (unknown) (no (unknown) (unknown) Mode of arrival: (units (unknown) date) Family Vehicle unknown) (unknown) (no (unknown) (unknown) [place] # (Auto) (units ( unknown) date) 700 (0-900) /uL unknown) (unknown) (no (unknown) (unknown) [place] % (Auto) (units ( unknown) date) 9.4 (3-14) % unknown) (unknown) (no (unknown) (unknown) NECK: Trachea (units ( unknown) date) midline. unknown) (unknown) (no (unknown) (unknown) NEURO: AOx4. (units (u nknown) date) unknown) (unknown) (no (unknown) (unknown) NEUROLOGIC: (units (un known) date) negative unknown) weakness, numbness (unknown) (no (unknown) (unknown) Narrative (units (unkn own) date) unknown) (unknown) (no (unknown) (unknown) Narrative: (units (unk nown) date) unknown) (unknown) (no (unknown) (unknown) Neut # (Auto) (units ( unknown) date) 3800 (2425-7964) unknown) /uL (unknown) (no (unknown) (unknown) Neut % (Auto) (units ( unknown) date) 53.3 (50-75) % unknown) (unknown) (no (unknown) (unknown) No Action (units (unkn own) date) unknown) (unknown) (no (unknown) (unknown) No driving or (units ( unknown) date) operating unknown) machinery this morning/today or when taking prescribed (unknown) (no (unknown) (unknown) No vaginal (units (unk nown) date) bleeding or unknown) discharge. Patient has had hydrocodone and Toradol for (unknown) (no (unknown) (unknown) ONE (units (unkno wn) date) unknown) (unknown) (no (unknown) (unknown) Ondansetron HCl (units (unknown) date) (Ondansetron 4 unknown) Mg/2 Ml Inj) 4 mg IV NOW ONE (unknown) (no (unknown) (unknown) Opioids - (units (unkn own) date) Morphine unknown) Analogues Allergy Intermediate rash Verified 06/14/22 14:51 (unknown) (no (unknown) (unknown) Ordered: (units (unkno wn) date) unknown) (unknown) (no (unknown) (unknown) Orders (units (unkno wn) date) unknown) (unknown) (no (unknown) (unknown) Ovarian cyst (units (u nknown) date) unknown) (unknown) (no (unknown) (unknown) Oxygen Delivery (units (unknown) date) Method 07/28/22 unknown) 01:30 (unknown) (no (unknown) (unknown) Oxygen Delivery (units (unknown) date) Method Room Air unknown) (unknown) (no (unknown) (unknown) PSYCH: Not (units (unk nown) date) anxious, is unknown) cooperative (unknown) (no (unknown) (unknown) Painful (units (unkno wn) date) menstrual periods unknown) () (unknown) (no (unknown) (unknown) Patient (units (unkno wn) date) Disposition: Home unknown) (unknown) (no (unknown) (unknown) Patient History (units (unknown) date) unknown) (unknown) (no (unknown) (unknown) Patient here (units (u nknown) date) with gabbie. Has unknown) history of left ovarian cyst. Seen by her OBGYN (unknown) (no (unknown) (unknown) Patient: (units (unkno wn) date) Ade Vidales Juan unknown) MR#: [id number] (unknown) (no (unknown) (unknown) Plt Count 372 (units ( unknown) date) (150-400) X103/uL unknown) (unknown) (no (unknown) (unknown) Point of Care (units ( unknown) date) Testing unknown) (unknown) (no (unknown) (unknown) Point of care (units ( unknown) date) testing: unknown) (unknown) (no (unknown) (unknown) Potassium 3.7 (units ( unknown) date) (3.4-5.1) mmol/L unknown) (unknown) (no (unknown) (unknown) Test (units (unknown) date) Results Negative unknown) (unknown) (no (unknown) (unknown) Prescriptions: (units (unknown) date) unknown) (unknown) (no (unknown) (unknown) Previous Rx's (units ( unknown) date) unknown) (unknown) (no (unknown) (unknown) Pulse Oximetry (units (unknown) date) 98 07/28/22 01:30 unknown) (unknown) (no (unknown) (unknown) Pulse Oximetry (units (unknown) date) 98 unknown) (unknown) (no (unknown) (unknown) Pulse Rate 75 (units ( unknown) date) 07/28/22 01:30 unknown) (unknown) (no (unknown) (unknown) Pulse Rate 75 (units ( unknown) date) unknown) (unknown) (no (unknown) (unknown) RBC 4.15 (units (unkno wn) date) (4.0-5.2) X106/uL unknown) (unknown) (no (unknown) (unknown) RDW 13.4 (units (unkno wn) date) (11.6-14.8) % unknown) (unknown) (no (unknown) (unknown) RESPIRATORY: (units (un known) date) Clear to unknown) auscultation. Breath sounds equal bilaterally. No wheezes, (unknown) (no (unknown) (unknown) RESPIRATORY: (units (u nknown) date) negative dyspnea, unknown) cough (unknown) (no (unknown) (unknown) ROS Unobtainable: (units (unknown) date) All systems unknown) reviewed + are unremarkable except as noted in HPI (unknown) (no (unknown) (unknown) Radiologist's (units ( unknown) date) Impression: unknown) (unknown) (no (unknown) (unknown) Read by (units (unkno wn) date) overnight unknown) radiologist. Impression complex hemorrhagic/prote inaceous (unknown) (no (unknown) (unknown) Referrals: (units (unk nown) date) unknown) (unknown) (no (unknown) (unknown) Related Data (units (u nknown) date) unknown) (unknown) (no (unknown) (unknown) Respiratory Rate (units (unknown) date) 16 07/28/22 01:30 unknown) (unknown) (no (unknown) (unknown) Respiratory Rate (units (unknown) date) 16 unknown) (unknown) (no (unknown) (unknown) Result diagrams: (units (unknown) date) unknown) (unknown) (no (unknown) (unknown) Return if worse (units (unknown) date) if any questions unknown) or concerns. (unknown) (no (unknown) (unknown) Review of (units (unkn own) date) Systems unknown) (unknown) (no (unknown) (unknown) S/P ACL (units (unkno wn) date) reconstruction unknown) (-06/08/21) (unknown) (no (unknown) (unknown) SKIN: Warm and (units (unknown) date) dry unknown) (unknown) (no (unknown) (unknown) SKIN: negative (units (unknown) date) rash, skin unknown) lesions (unknown) (no (unknown) (unknown) Signed By: (units (unk nown) date) unknown) (unknown) (no (unknown) (unknown) Smoking Status: (units (unknown) date) Current some day unknown) smoker (unknown) (no (unknown) (unknown) Social History (units (unknown) date) (Reviewed unknown) 07/28/22 @ 02:02 by Kyle Bess MD) (unknown) (no (unknown) (unknown) Sodium 136 L (units (u nknown) date) (137-145) mmol/L unknown) (unknown) (no (unknown) (unknown) Sodium Chloride (units (unknown) date) (Normal Saline unknown) 0.9%) 1,000 mls @ 1,000 mls/hr IV BOLUS ONE (unknown) (no (unknown) (unknown) Source: patient (units (unknown) date) and family unknown) (unknown) (no (unknown) (unknown) Stand Alone (units (un known) date) Forms: Patient unknown) Portal/API, Work Release Note (unknown) (no (unknown) (unknown) Stated (units (unkno wn) date) Complaint: N/V/D unknown) ABD PAIN (unknown) (no (unknown) (unknown) Stop: 07/28/22 (units (unknown) date) 01:50 unknown) (unknown) (no (unknown) (unknown) Stop: 07/28/22 (units (unknown) date) 02:01 unknown) (unknown) (no (unknown) (unknown) Stop: 07/28/22 (units (unknown) date) 02:32 unknown) (unknown) (no (unknown) (unknown) Stop: 07/28/22 (units (unknown) date) 02:48 unknown) (unknown) (no (unknown) (unknown) Substance Use (units ( unknown) date) Type: does not unknown) use (unknown) (no (unknown) (unknown) Surgical History (units (unknown) date) (Reviewed unknown) 07/28/22 @ 02:02 by Kyle Bess MD) (unknown) (no (unknown) (unknown) TOA (units (unkno wn) date) (tubo-ovarian unknown) abscess) (-06/28/21) (unknown) (no (unknown) (unknown) There is blood (units (unknown) date) flow to each unknown) ovary. I did review results with patient and (unknown) (no (unknown) (unknown) Time Seen by (units (u nknown) date) Provider: unknown) 07/28/22 01:26 (unknown) (no (unknown) (unknown) Total Bilirubin (units (unknown) date) 0.4 (0.2-1.3) unknown) mg/dL (unknown) (no (unknown) (unknown) Total Protein (units ( unknown) date) 6.6 (6.3-8.2) unknown) g/dL (unknown) (no (unknown) (unknown) US - [employer]: (units (unkn own) date) unknown) (unknown) (no (unknown) (unknown) US pelvic (units (unkn own) date) complete Stat unknown) (unknown) (no (unknown) (unknown) Urine Dip (units (unkn own) date) unknown) (unknown) (no (unknown) (unknown) Urine Specific (units (unknown) date) [place] 1.010 unknown) (unknown) (no (unknown) (unknown) Vital Signs - 8 (units (unknown) date) hr unknown) (unknown) (no (unknown) (unknown) Vital Signs (units (un known) date) unknown) (unknown) (no (unknown) (unknown) Vital signs: (units (u nknown) date) unknown) (unknown) (no (unknown) (unknown) WBC 7.2 (units (unkno wn) date) (4.5-11.0) unknown) X103/uL (unknown) (no (unknown) (unknown) Manny her OBGYN (units (unknown) date) and her have unknown) decided to try managed conservatively, no (unknown) (no (unknown) (unknown) Sushant Bryant, (units (unknown) date) [Physician] unknown) (unknown) (no (unknown) (unknown) [Embedded Image (units (unknown) date) Not Available] unknown) (unknown) (no (unknown) (unknown) alcohol intake (units (unknown) date) frequency: unknown) holidays/special occasions only (unknown) (no (unknown) (unknown) alcohol intake: (units (unknown) date) current unknown) (unknown) (no (unknown) (unknown) and below (units (unkn own) date) unknown) (unknown) (no (unknown) (unknown) and he as well (units (unknown) date) as this unknown) department back in May for the same complaint. (unknown) (no (unknown) (unknown) and other (units (unkn own) date) (UTI/ovarian unknown) torsion/ovarian cyst) (unknown) (no (unknown) (unknown) appointment for (units (unknown) date) re-evaluation and unknown) continue treatment plan for your ovarian cyst. (unknown) (no (unknown) (unknown) atient has (units (unk nown) date) tolerated unknown) hydrocodone in the past without difficulty. Patient denies (unknown) (no (unknown) (unknown) been doing well (units (unknown) date) until tonight at unknown) 8:00 p.m. had pain in the left pelvis. Had (unknown) (no (unknown) (unknown) clindamycin HCl (units (unknown) date) 150 mg capsule unknown) 150 mg PO DAILY #30 caps 03/17/22 (unknown) (no (unknown) (unknown) clindamycin HCl (units (unknown) date) 150 mg capsule unknown) (unknown) (no (unknown) (unknown) control pills (units ( unknown) date) and no surgery at unknown) this time. She has history of removal fallopian (unknown) (no (unknown) (unknown) cyst within the (units (unknown) date) left ovary unknown) measuring 3.7 x 3.4 x 3.3 cm. Minimal anechoic fluid (unknown) (no (unknown) (unknown) cysts/tubo-ovari (units (unknown) date) an unknown) abscess/ovarian torsion/UTI/ectop ic (unknown) (no (unknown) (unknown) doxycycline (units (un known) date) AdvReac unknown) Intermediate vomitt Verified 06/14/22 14:51 (unknown) (no (unknown) (unknown) fiancee. Patient (units (unknown) date) states the unknown) Toradol and hydrocodone medication did not help (unknown) (no (unknown) (unknown) has been doing (units (unknown) date) well until unknown) tonight at 8:00 p.m. had pain in the left pelvis. Had (unknown) (no (unknown) (unknown) household (units (unkn own) date) members: unknown) friend(s) (unknown) (no (unknown) (unknown) hydrocodone 5 (units ( unknown) date) mg-acetaminophen unknown) 325 1 tab PO Q4-6H PRN pain #10 tabs 06/07/22 (unknown) (no (unknown) (unknown) hydrocodone (units (un known) date) would be unknown) effective afterwards. We did agree for short course (unknown) (no (unknown) (unknown) hydrocodone-acet (units (unknown) date) aminophen 5-325 unknown) mg tablet (unknown) (no (unknown) (unknown) hydromorphone 4 (units (unknown) date) mg tablet 4 mg PO unknown) Q4-6H PRN pain #20 tabs 04/08/22 (unknown) (no (unknown) (unknown) hydromorphone (units ( unknown) date) [Dilaudid] 4 mg unknown) tablet (unknown) (no (unknown) (unknown) ketorolac 10 mg (units (unknown) date) tablet 10 mg PO unknown) Q6H PRN pain #14 tabs 06/07/22 (unknown) (no (unknown) (unknown) ketorolac 10 mg (units (unknown) date) tablet unknown) (unknown) (no (unknown) (unknown) mg tablet (units (unkn own) date) unknown) (unknown) (no (unknown) (unknown) nausea and (units (unk nown) date) vomiting. Pain unknown) radiates to the left lower back. Denies . (unknown) (no (unknown) (unknown) note provided. (units (unknown) date) She desires unknown) discharge home. (unknown) (no (unknown) (unknown) ondansetron 4 mg (units (unknown) date) disintegrating 4 unknown) mg PO TID-QID PRN nausea and 06/07/22 (unknown) (no (unknown) (unknown) ondansetron 4 mg (units (unknown) date) tablet,disintegra unknown) ting (unknown) (no (unknown) (unknown) ovaries. Normal (units (unknown) date) color Doppler unknown) with arterial/venous spectral tracing of both (unknown) (no (unknown) (unknown) ovaries. (units (unkno wn) date) unknown) (unknown) (no (unknown) (unknown) oxycodone 5 mg (units (unknown) date) tablet 5 mg PO unknown) Q4H PRN pain #20 tabs 04/07/22 (unknown) (no (unknown) (unknown) oxycodone 5 mg (units (unknown) date) tablet unknown) (unknown) (no (unknown) (unknown) pain level. She (units (unknown) date) is had Dilaudid unknown) in the past which did break her pain and home (unknown) (no (unknown) (unknown) pain medication. (units (unknown) date) Call Dr. Bryant, unknown) your OBGYN doctor today for office (unknown) (no (unknown) (unknown) pelvic (units (unkno wn) date) ultrasound. unknown) Patient states feels the same as past ovarian cyst. P (unknown) (no (unknown) (unknown) peritoneal signs (units (unknown) date) bowel sounds unknown) present. No CVA tenderness (unknown) (no (unknown) (unknown) . (units (unk nown) date) Differential unknown) diagnosis includes but not limited to ovarian (unknown) (no (unknown) (unknown) prepack of (units (unk nown) date) hydrocodone. She unknown) will follow up with Dr. Bryant for more definitive (unknown) (no (unknown) (unknown) rales, or (units (unkn own) date) rhonchi. unknown) (unknown) (no (unknown) (unknown) relief in the (units ( unknown) date) past unknown) (unknown) (no (unknown) (unknown) tablet vomiting (units (unknown) date) #10 tabs unknown) (unknown) (no (unknown) (unknown) tobacco type: (units ( unknown) date) vaping unknown) (unknown) (no (unknown) (unknown) treatment plan (units (unknown) date) for her ovarian unknown) cyst. Return precautions reviewed with her. (unknown) (no (unknown) (unknown) tube on the (units (un known) date) right side due to unknown) tubo-ovarian abscess. Two years ago. Patient has (unknown) (no (unknown) (unknown) tube on the (units (un known) date) right side due to unknown) tubo-ovarian abscess. Two years ago. Patient (unknown) (no (unknown) (unknown) within the left (units (unknown) date) adnexa. Doppler unknown) and spectral tracing within the bilateral Result panel 568 (unknown) (no (unknown) (unknown) (no value) (units (unk nown) date) unknown) (unknown) (no (unknown) (unknown) <Electronically (units (unknown) date) signed by Kyle unknown) MD Shahriar> (unknown) (no (unknown) (unknown) (Dilaudid) (units (unk nown) date) unknown) (unknown) (no (unknown) (unknown) [id number] (units (unkno wn) date) unknown) (unknown) (no (unknown) (unknown) 07/28/22 (units (unkno wn) date) 07/28/22 unknown) Range/Units (unknown) (no (unknown) (unknown) 07/28/22 01:48 (units (unknown) date) unknown) (unknown) (no (unknown) (unknown) 07/28/22 02:05 (units (unknown) date) unknown) (unknown) (no (unknown) (unknown) 07/28/22 0613 (units ( unknown) date) unknown) (unknown) (no (unknown) (unknown) 07/28/22 (units (unkno wn) date) unknown) (unknown) (no (unknown) (unknown) 01:30 07/28/22 (units (unknown) date) unknown) (unknown) (no (unknown) (unknown) 02:05 02:05 (units (un known) date) unknown) (unknown) (no (unknown) (unknown) 03:45 (units (unkno wn) date) unknown) (unknown) (no (unknown) (unknown) 1 tab PO Q4-6H (units (unknown) date) PRN (Reason: unknown) pain) Qty: 10 0RF (unknown) (no (unknown) (unknown) 10 mg PO Q6H PRN (units (unknown) date) (Reason: pain) unknown) Qty: 14 0RF (unknown) (no (unknown) (unknown) 150 mg PO DAILY (units (unknown) date) Qty: 30 0RF unknown) (unknown) (no (unknown) (unknown) 3:26 a.m.. I (units (u nknown) date) have reviewed CBC unknown) CMP urinalysis and pelvic ultrasound results. (unknown) (no (unknown) (unknown) 4 mg PO Q4-6H (units ( unknown) date) PRN (Reason: unknown) pain) Qty: 20 0RF (unknown) (no (unknown) (unknown) 4 mg PO TID-QID (units (unknown) date) PRN (Reason: unknown) nausea and vomiting) Qty: 10 0RF (unknown) (no (unknown) (unknown) 5 mg PO Q4H PRN (units (unknown) date) (Reason: pain) unknown) Qty: 20 0RF (unknown) (no (unknown) (unknown) ALT 17 (<35) (units (u nknown) date) IU/L unknown) (unknown) (no (unknown) (unknown) AST 26 (14-36) (units (unknown) date) IU/L unknown) (unknown) (no (unknown) (unknown) [place] (-2016) (units (u nknown) date) unknown) (unknown) (no (unknown) (unknown) Activity (units (unkno wn) date) Restrictions/Nolan unknown) tional Instructions: (unknown) (no (unknown) (unknown) Admin: 07/28/22 (units (unknown) date) 02:40 Dose: 1,000 unknown) mls/hr (unknown) (no (unknown) (unknown) After history and (units (unknown) date) exam, have unknown) decided order CBC CMP urinalysis test and (unknown) (no (unknown) (unknown) Age/Sex: 21 / F (units (unknown) date) unknown) (unknown) (no (unknown) (unknown) Albumin 4.1 (units (un known) date) (3.5-5.0) g/dL unknown) (unknown) (no (unknown) (unknown) Albumin/Globulin (units (unknown) date) Ratio 1.6 unknown) (1.0-2.8) (unknown) (no (unknown) (unknown) Alcohol type: (units ( unknown) date) wine unknown) (unknown) (no (unknown) (unknown) Alkaline (units (unkno wn) date) Phosphatase 79 unknown) (38-126) U/L (unknown) (no (unknown) (unknown) Allergies (units (unkn own) date) unknown) (unknown) (no (unknown) (unknown) Allergy/AdvReac (units (unknown) date) Type Severity unknown) Reaction Status Date / Time (unknown) (no (unknown) (unknown) Anesthesia (units (unk nown) date) unknown) (unknown) (no (unknown) (unknown) Appropriate for (units (unknown) date) discharge home. unknown) Laboratory studies otherwise reassuring. Work (unknown) (no (unknown) (unknown) At this time (units (u nknown) date) left ovarian cyst unknown) does measure smaller zone this past May. (unknown) (no (unknown) (unknown) BACK: No flank (units (unknown) date) tenderness. unknown) (unknown) (no (unknown) (unknown) BUN 10 (7-17) (units ( unknown) date) mg/dL unknown) (unknown) (no (unknown) (unknown) BUN/Creatinine (units (unknown) date) Ratio 12.5 (6-22) unknown) (unknown) (no (unknown) (unknown) Baso # (Auto) 0 (units (unknown) date) (0-100) /uL unknown) (unknown) (no (unknown) (unknown) Baso % (Auto) (units ( unknown) date) 0.4 (0-2) % unknown) (unknown) (no (unknown) (unknown) Bedside Urine (units ( unknown) date) Bilirubin - unknown) Negative (unknown) (no (unknown) (unknown) Bedside Urine (units ( unknown) date) Glucose Negative unknown) (unknown) (no (unknown) (unknown) Bedside Urine (units ( unknown) date) Ketone - Negative unknown) (unknown) (no (unknown) (unknown) Bedside Urine (units ( unknown) date) Leukocytes - unknown) Negative (unknown) (no (unknown) (unknown) Bedside Urine (units ( unknown) date) Nitrite - unknown) Negative (unknown) (no (unknown) (unknown) Bedside Urine (units ( unknown) date) Occult Blood - unknown) Negative (unknown) (no (unknown) (unknown) Bedside Urine (units ( unknown) date) Protein - unknown) Negative (unknown) (no (unknown) (unknown) Bedside Urine (units ( unknown) date) Urobilinogen - unknown) Negative (unknown) (no (unknown) (unknown) Bedside Urine pH (units (unknown) date) 6.5 unknown) (unknown) (no (unknown) (unknown) Blood Pressure (units (unknown) date) 119/59 L 07/28/22 unknown) 01:30 (unknown) (no (unknown) (unknown) Blood Pressure (units (unknown) date) 119/59 L 103/57 L unknown) (unknown) (no (unknown) (unknown) CARDIOVASCULAR: (units (unknown) date) Regular rate and unknown) rhythm without murmurs (unknown) (no (unknown) (unknown) CARDIOVASCULAR: (units (unknown) date) negative chest unknown) pain, palpitations (unknown) (no (unknown) (unknown) CBC Auto Diff (units ( unknown) date) [Complete Blood unknown) Count AUTO DIFF] Stat (unknown) (no (unknown) (unknown) CMP (units (unkno wn) date) [Comprehensive unknown) Metabolic Panel] Stat (unknown) (no (unknown) (unknown) Calcium 8.6 (units (un known) date) (8.4-10.2) mg/dL unknown) (unknown) (no (unknown) (unknown) Carbon Dioxide (units (unknown) date) 26 (22-32) mmol/L unknown) (unknown) (no (unknown) (unknown) Chief Complaint: (units (unknown) date) Abdominal Pain unknown) (unknown) (no (unknown) (unknown) Chlamydia (units (unkn own) date) infection (-2020) unknown) (unknown) (no (unknown) (unknown) Chloride 103 (units (u nknown) date) (98-107) mmol/L unknown) (unknown) (no (unknown) (unknown) Chronic (units (unkno wn) date) Condition is unknown) having:: Moderate exacerbation (unknown) (no (unknown) (unknown) Clinical (units (unkno wn) date) Impression: unknown) (unknown) (no (unknown) (unknown) Condition is:: (units (unknown) date) Well Controlled unknown) (unknown) (no (unknown) (unknown) Course (units (unkno wn) date) unknown) (unknown) (no (unknown) (unknown) Creatinine 0.80 (units (unknown) date) (0.52-1.04) mg/dL unknown) (unknown) (no (unknown) (unknown) : 2000 (units (unknown) date) Acct:[id number] unknown) (unknown) (no (unknown) (unknown) Date of Service: (units (unknown) date) 07/28/22 unknown) (unknown) (no (unknown) (unknown) Departure (units (unkn own) date) unknown) (unknown) (no (unknown) (unknown) Differential (units (u nknown) date) Diagnosis unknown) (unknown) (no (unknown) (unknown) Differential (units (un known) date) diagnosis: Likely unknown) abdominal pain, calculus of kidney, endometriosis (unknown) (no (unknown) (unknown) Discharge Plan (units (unknown) date) unknown) (unknown) (no (unknown) (unknown) Discontinued (units (u nknown) date) Medications unknown) (unknown) (no (unknown) (unknown) Documented By: (units (unknown) date) BS unknown) (unknown) (no (unknown) (unknown) ED Orders (units (unkn own) date) unknown) (unknown) (no (unknown) (unknown) ER Physician: (units ( unknown) date) Kyle Bess MD unknown) (unknown) (no (unknown) (unknown) EXTREMITIES: No (units (unknown) date) gross unknown) deformities. (unknown) (no (unknown) (unknown) EYES: Pupils (units (u nknown) date) equal round unknown) (unknown) (no (unknown) (unknown) Emergency Report (units (unknown) date) unknown) (unknown) (no (unknown) (unknown) Endometriosis (units ( unknown) date) (-2020) unknown) (unknown) (no (unknown) (unknown) Eos # (Auto) 300 (units (unknown) date) (0-450) /uL unknown) (unknown) (no (unknown) (unknown) Eos % (Auto) 3.5 (units (unknown) date) (2-4) % unknown) (unknown) (no (unknown) (unknown) Esterase (units (unkno wn) date) unknown) (unknown) (no (unknown) (unknown) Estimated GFR > (units (unknown) date) 60 (>60) mL/min unknown) (unknown) (no (unknown) (unknown) Exam Narrative: (units (unknown) date) unknown) (unknown) (no (unknown) (unknown) Exam (units (unkno wn) date) unknown) (unknown) (no (unknown) (unknown) GASTROINTESTINAL (units (unknown) date) : Abdomen soft, unknown) reproducible left lower quadrant tenderness no (unknown) (no (unknown) (unknown) GASTROINTESTINAL (units (unknown) date) : Positive unknown) nausea, vomiting, abdominal pain (unknown) (no (unknown) (unknown) GENERAL: in no (units (unknown) date) distress, not unknown) toxic not dyspneic (unknown) (no (unknown) (unknown) GENERAL: (units (unkno wn) date) negative chills, unknown) fatigue, malaise, fever, sweats. (unknown) (no (unknown) (unknown) : negative (units (u nknown) date) dysuria, unknown) frequency, hematuria (unknown) (no (unknown) (unknown) General (units (unkno wn) date) unknown) (unknown) (no (unknown) (unknown) Globulin 2.5 (units (u nknown) date) (1.7-4.1) g/dL unknown) (unknown) (no (unknown) (unknown) Glucose 84 (units (unk nown) date) (70-100) mg/dL unknown) (unknown) (no (unknown) (unknown) HEAD: (units (unkno wn) date) Normocephalic. unknown) (unknown) (no (unknown) (unknown) HEENT: negative (units (unknown) date) sinus pain, ear unknown) pain, sore throat (unknown) (no (unknown) (unknown) HPI - Abdominal (units (unknown) date) Pain unknown) (unknown) (no (unknown) (unknown) HPI narrative: (units (unknown) date) unknown) (unknown) (no (unknown) (unknown) Hct 37.1 (36-46) (units (unknown) date) % unknown) (unknown) (no (unknown) (unknown) Heavy menstrual (units (unknown) date) period (-2019) unknown) (unknown) (no (unknown) (unknown) Hgb 12.2 (units (unkno wn) date) (12.0-16.0) g/dL unknown) (unknown) (no (unknown) (unknown) History of (units (unk nown) date) Present Illness unknown) (unknown) (no (unknown) (unknown) Hydrocodone (units (un known) date) Bitart/Acetaminop unknown) hen (Hydrocodone/Acet 5/325 Prepack) 1 bottle MISC (unknown) (no (unknown) (unknown) Hydrocodone (units (un known) date) Bitart/Acetaminop unknown) hen (Hydrocodone/Acet 5/325 Tablet) 1 tab PO NOW (unknown) (no (unknown) (unknown) Hydrocodone (units (un known) date) Bitart/Acetaminop unknown) hen (Hydrocodone/Acet 5/325 Tablet) 2 tab PO NOW (unknown) (no (unknown) (unknown) Hydromorphone (units ( unknown) date) HCl unknown) (Hydromorphone 1 Mg Inj) 1 mg IV NOW ONE (unknown) (no (unknown) (unknown) I did review (units (u nknown) date) medical records unknown) from May 2022 as well as pelvic ultrasound (unknown) (no (unknown) (unknown) Imaging Data (units (u nknown) date) unknown) (unknown) (no (unknown) (unknown) Initial Vital (units ( unknown) date) Signs unknown) (unknown) (no (unknown) (unknown) Initial Vital (units ( unknown) date) Signs: unknown) (unknown) (no (unknown) (unknown) Instructions: DI (units (unknown) date) for Ovarian Cyst unknown) (unknown) (no (unknown) (unknown) Irregular (units (unkn own) date) menstrual cycle unknown) () (unknown) (no (unknown) (unknown) [facility] (units (unknown) date) [address] unknown) [place] [id number] (unknown) (no (unknown) (unknown) Joel Abrams (units (unknown) date) ELEUTERIO dasilva [Primary unknown) Care Provider] (unknown) (no (unknown) (unknown) Ketorolac (units (unkn own) date) Tromethamine unknown) (Ketorolac 30 Mg/Ml Vial) 15 mg IV NOW ONE (unknown) (no (unknown) (unknown) Lab Data (units (unkno wn) date) unknown) (unknown) (no (unknown) (unknown) Lab Results (units (un known) date) unknown) (unknown) (no (unknown) (unknown) Labs: (units (unkno wn) date) unknown) (unknown) (no (unknown) (unknown) Last Admin: (units (un known) date) 07/28/22 02:38 unknown) Dose: 15 mg (unknown) (no (unknown) (unknown) Last Admin: (units (un known) date) 07/28/22 02:39 unknown) Dose: 2 tab (unknown) (no (unknown) (unknown) Last Admin: (units (un known) date) 07/28/22 02:39 unknown) Dose: 4 mg (unknown) (no (unknown) (unknown) Last Admin: (units (un known) date) 07/28/22 02:41 unknown) Dose: Not Given (unknown) (no (unknown) (unknown) Last Admin: (units (un known) date) 07/28/22 03:39 unknown) Dose: 1 bottle (unknown) (no (unknown) (unknown) Last Admin: (units (un known) date) 07/28/22 03:40 unknown) Dose: 1 mg (unknown) (no (unknown) (unknown) Last Infusion: (units (unknown) date) 07/28/22 03:41 unknown) Dose: 0 mls/hr (unknown) (no (unknown) (unknown) Limitations: no (units (unknown) date) limitations unknown) (unknown) (no (unknown) (unknown) Lymph # (Auto) (units (unknown) date) 2400 ([phone]) unknown) /uL (unknown) (no (unknown) (unknown) Lymph % (Auto) (units (unknown) date) 33.4 (25-40) % unknown) (unknown) (no (unknown) (unknown) Lymphangioma (units (u nknown) date) unknown) (unknown) (no (unknown) (unknown) MCH 29.4 (26-34) (units (unknown) date) PG unknown) (unknown) (no (unknown) (unknown) MCHC 33.0 (units (unkn own) date) (30-36) % unknown) (unknown) (no (unknown) (unknown) MCV 89.2 (units (unkno wn) date) (80-100) fL unknown) (unknown) (no (unknown) (unknown) MDM - Abdominal (units (unknown) date) Pain unknown) (unknown) (no (unknown) (unknown) MDM Narrative (units ( unknown) date) unknown) (unknown) (no (unknown) (unknown) MUSCULOSKELETAL: (units (unknown) date) negative muscle unknown) or bony pain (unknown) (no (unknown) (unknown) Medical History (units (unknown) date) (Reviewed unknown) 07/28/22 @ 02:02 by Kyle Bess MD) (unknown) (no (unknown) (unknown) Medical Records (units (unknown) date) unknown) (unknown) (no (unknown) (unknown) Medical decision (units (unknown) date) making narrative: unknown) (unknown) (no (unknown) (unknown) Medical records (units (unknown) date) narrative: unknown) (unknown) (no (unknown) (unknown) Medication (units (unk nown) date) Instructions unknown) Recorded (unknown) (no (unknown) (unknown) Mode of arrival: (units (unknown) date) Family Vehicle unknown) (unknown) (no (unknown) (unknown) [place] # (Auto) (units ( unknown) date) 700 (0-900) /uL unknown) (unknown) (no (unknown) (unknown) [place] % (Auto) (units ( unknown) date) 9.4 (3-14) % unknown) (unknown) (no (unknown) (unknown) NECK: Trachea (units ( unknown) date) midline. unknown) (unknown) (no (unknown) (unknown) NEURO: AOx4. (units (u nknown) date) unknown) (unknown) (no (unknown) (unknown) NEUROLOGIC: (units (un known) date) negative unknown) weakness, numbness (unknown) (no (unknown) (unknown) Narrative (units (unkn own) date) unknown) (unknown) (no (unknown) (unknown) Narrative: (units (unk nown) date) unknown) (unknown) (no (unknown) (unknown) Neut # (Auto) (units ( unknown) date) 3800 ([phone]) unknown) /uL (unknown) (no (unknown) (unknown) Neut % (Auto) (units ( unknown) date) 53.3 (50-75) % unknown) (unknown) (no (unknown) (unknown) No Action (units (unkn own) date) unknown) (unknown) (no (unknown) (unknown) No driving or (units ( unknown) date) operating unknown) machinery this morning/today or when taking prescribed (unknown) (no (unknown) (unknown) No vaginal (units (unk nown) date) bleeding or unknown) discharge. Patient has had hydrocodone and Toradol for (unknown) (no (unknown) (unknown) ONE (units (unkno wn) date) unknown) (unknown) (no (unknown) (unknown) Ondansetron HCl (units (unknown) date) (Ondansetron 4 Mg unknown) Odt Prepack) 1 bottle MISC SEEINSTR ONE (unknown) (no (unknown) (unknown) Ondansetron HCl (units (unknown) date) (Ondansetron 4 unknown) Mg/2 Ml Inj) 4 mg IV NOW ONE (unknown) (no (unknown) (unknown) Opioids - (units (unkn own) date) Morphine unknown) Analogues Allergy Intermediate rash Verified 06/14/22 14:51 (unknown) (no (unknown) (unknown) Ordered: (units (unkno wn) date) unknown) (unknown) (no (unknown) (unknown) Orders (units (unkno wn) date) unknown) (unknown) (no (unknown) (unknown) Ovarian cyst (units (u nknown) date) unknown) (unknown) (no (unknown) (unknown) Oxygen Delivery (units (unknown) date) Method 07/28/22 unknown) 01:30 (unknown) (no (unknown) (unknown) Oxygen Delivery (units (unknown) date) Method Room Air unknown) Room Air (unknown) (no (unknown) (unknown) PSYCH: Not (units (unk nown) date) anxious, is unknown) cooperative (unknown) (no (unknown) (unknown) Painful (units (unkno wn) date) menstrual periods unknown) () (unknown) (no (unknown) (unknown) Patient (units (unkno wn) date) Disposition: Home unknown) (unknown) (no (unknown) (unknown) Patient History (units (unknown) date) unknown) (unknown) (no (unknown) (unknown) Patient has (units (un known) date) tolerated unknown) hydrocodone in the past without difficulty. Patient (unknown) (no (unknown) (unknown) Patient here (units (u nknown) date) with fiancee. Has unknown) history of left ovarian cyst. Seen by her OBGYN (unknown) (no (unknown) (unknown) Patient: (units (unkno wn) date) Ade Vidales unknown) MR#: [id number] (unknown) (no (unknown) (unknown) Plt Count 372 (units ( unknown) date) (150-400) X103/uL unknown) (unknown) (no (unknown) (unknown) Point of Care (units ( unknown) date) Testing unknown) (unknown) (no (unknown) (unknown) Point of care (units ( unknown) date) testing: unknown) (unknown) (no (unknown) (unknown) Potassium 3.7 (units ( unknown) date) (3.4-5.1) mmol/L unknown) (unknown) (no (unknown) (unknown) Test (units (unknown) date) Results Negative unknown) (unknown) (no (unknown) (unknown) Prescriptions: (units (unknown) date) unknown) (unknown) (no (unknown) (unknown) Previous Rx's (units ( unknown) date) unknown) (unknown) (no (unknown) (unknown) Pulse Oximetry (units (unknown) date) 98 07/28/22 01:30 unknown) (unknown) (no (unknown) (unknown) Pulse Oximetry (units (unknown) date) 98 98 unknown) (unknown) (no (unknown) (unknown) Pulse Rate 75 (units ( unknown) date) 07/28/22 01:30 unknown) (unknown) (no (unknown) (unknown) Pulse Rate 75 65 (units (unknown) date) unknown) (unknown) (no (unknown) (unknown) RBC 4.15 (units (unkno wn) date) (4.0-5.2) X106/uL unknown) (unknown) (no (unknown) (unknown) RDW 13.4 (units (unkno wn) date) (11.6-14.8) % unknown) (unknown) (no (unknown) (unknown) RESPIRATORY: (units (un known) date) Clear to unknown) auscultation. Breath sounds equal bilaterally. No wheezes, (unknown) (no (unknown) (unknown) RESPIRATORY: (units (u nknown) date) negative dyspnea, unknown) cough (unknown) (no (unknown) (unknown) ROS Unobtainable: (units (unknown) date) All systems unknown) reviewed + are unremarkable except as noted in HPI (unknown) (no (unknown) (unknown) Radiologist's (units ( unknown) date) Impression: unknown) (unknown) (no (unknown) (unknown) Read by (units (unkno wn) date) overnight unknown) radiologist. Impression complex hemorrhagic/prote inaceous (unknown) (no (unknown) (unknown) Referrals: (units (unk nown) date) unknown) (unknown) (no (unknown) (unknown) Related Data (units (u nknown) date) unknown) (unknown) (no (unknown) (unknown) Respiratory Rate (units (unknown) date) 16 07/28/22 01:30 unknown) (unknown) (no (unknown) (unknown) Respiratory Rate (units (unknown) date) 16 17 unknown) (unknown) (no (unknown) (unknown) Result diagrams: (units (unknown) date) unknown) (unknown) (no (unknown) (unknown) Return if worse (units (unknown) date) if any questions unknown) or concerns. (unknown) (no (unknown) (unknown) Review of (units (unkn own) date) Systems unknown) (unknown) (no (unknown) (unknown) S/P ACL (units (unkno wn) date) reconstruction unknown) (-06/08/21) (unknown) (no (unknown) (unknown) SEEINSTR ONE (units (u nknown) date) unknown) (unknown) (no (unknown) (unknown) SKIN: Warm and (units (unknown) date) dry unknown) (unknown) (no (unknown) (unknown) SKIN: negative (units (unknown) date) rash, skin unknown) lesions (unknown) (no (unknown) (unknown) Signed By: (units (unk nown) date) unknown) (unknown) (no (unknown) (unknown) Smoking Status: (units (unknown) date) Current some day unknown) smoker (unknown) (no (unknown) (unknown) Social History (units (unknown) date) (Reviewed unknown) 07/28/22 @ 02:02 by Kyle Bess MD) (unknown) (no (unknown) (unknown) Sodium 136 L (units (u nknown) date) (137-145) mmol/L unknown) (unknown) (no (unknown) (unknown) Sodium Chloride (units (unknown) date) (Normal Saline unknown) 0.9%) 1,000 mls @ 1,000 mls/hr IV BOLUS ONE (unknown) (no (unknown) (unknown) Source: patient (units (unknown) date) and family unknown) (unknown) (no (unknown) (unknown) Stand Alone (units (un known) date) Forms: Patient unknown) Portal/API, Work Release Note (unknown) (no (unknown) (unknown) Stated (units (unkno wn) date) Complaint: N/V/D unknown) ABD PAIN (unknown) (no (unknown) (unknown) Stop: 07/28/22 (units (unknown) date) 01:50 unknown) (unknown) (no (unknown) (unknown) Stop: 07/28/22 (units (unknown) date) 02:01 unknown) (unknown) (no (unknown) (unknown) Stop: 07/28/22 (units (unknown) date) 02:32 unknown) (unknown) (no (unknown) (unknown) Stop: 07/28/22 (units (unknown) date) 02:48 unknown) (unknown) (no (unknown) (unknown) Stop: 07/28/22 (units (unknown) date) 03:23 unknown) (unknown) (no (unknown) (unknown) Stop: 07/28/22 (units (unknown) date) 03:26 unknown) (unknown) (no (unknown) (unknown) Substance Use (units ( unknown) date) Type: does not unknown) use (unknown) (no (unknown) (unknown) Surgical History (units (unknown) date) (Reviewed unknown) 07/28/22 @ 02:02 by Kyle Bess MD) (unknown) (no (unknown) (unknown) TOA (units (unkno wn) date) (tubo-ovarian unknown) abscess) (-06/28/21) (unknown) (no (unknown) (unknown) There is blood (units (unknown) date) flow to each unknown) ovary. I did review results with patient and (unknown) (no (unknown) (unknown) Time Seen by (units (u nknown) date) Provider: unknown) 07/28/22 01:26 (unknown) (no (unknown) (unknown) Total Bilirubin (units (unknown) date) 0.4 (0.2-1.3) unknown) mg/dL (unknown) (no (unknown) (unknown) Total Protein (units ( unknown) date) 6.6 (6.3-8.2) unknown) g/dL (unknown) (no (unknown) (unknown) US - [employer]: (units (unkn own) date) unknown) (unknown) (no (unknown) (unknown) US pelvic (units (unkn own) date) complete Stat unknown) (unknown) (no (unknown) (unknown) Urine Dip (units (unkn own) date) unknown) (unknown) (no (unknown) (unknown) Urine Specific (units (unknown) date) [place] 1.010 unknown) (unknown) (no (unknown) (unknown) Vital Signs - 8 (units (unknown) date) hr unknown) (unknown) (no (unknown) (unknown) Vital Signs (units (un known) date) unknown) (unknown) (no (unknown) (unknown) Vital signs: (units (u nknown) date) unknown) (unknown) (no (unknown) (unknown) WBC 7.2 (units (unkno wn) date) (4.5-11.0) unknown) X103/uL (unknown) (no (unknown) (unknown) Manny her OBGYN (units (unknown) date) and her have unknown) decided to try managed conservatively, no (unknown) (no (unknown) (unknown) Sushant Bryant, (units (unknown) date) [Physician] unknown) (unknown) (no (unknown) (unknown) [Embedded Image (units (unknown) date) Not Available] unknown) (unknown) (no (unknown) (unknown) alcohol intake (units (unknown) date) frequency: unknown) holidays/special occasions only (unknown) (no (unknown) (unknown) alcohol intake: (units (unknown) date) current unknown) (unknown) (no (unknown) (unknown) and below (units (unkn own) date) unknown) (unknown) (no (unknown) (unknown) and he as well (units (unknown) date) as this unknown) department back in May for the same complaint. (unknown) (no (unknown) (unknown) and other (units (unkn own) date) (UTI/ovarian unknown) torsion/ovarian cyst) (unknown) (no (unknown) (unknown) appointment for (units (unknown) date) re-evaluation and unknown) continue treatment plan for your ovarian cyst. (unknown) (no (unknown) (unknown) been doing well (units (unknown) date) until tonight at unknown) 8:00 p.m. had pain in the left pelvis. Had (unknown) (no (unknown) (unknown) clindamycin HCl (units (unknown) date) 150 mg capsule unknown) 150 mg PO DAILY #30 caps 03/17/22 (unknown) (no (unknown) (unknown) clindamycin HCl (units (unknown) date) 150 mg capsule unknown) (unknown) (no (unknown) (unknown) control pills (units ( unknown) date) and no surgery at unknown) this time. She has history of removal fallopian (unknown) (no (unknown) (unknown) cyst within the (units (unknown) date) left ovary unknown) measuring 3.7 x 3.4 x 3.3 cm. Minimal anechoic fluid (unknown) (no (unknown) (unknown) cysts/tubo-ovari (units (unknown) date) an unknown) abscess/ovarian torsion/UTI/ectop ic (unknown) (no (unknown) (unknown) decompensation/d (units (unknown) date) econditioning/wor unknown) sening symptoms. Symptoms are not new. She (unknown) (no (unknown) (unknown) denies (units (unkno wn) date) . unknown) Differential diagnosis includes but not limited to ovarian (unknown) (no (unknown) (unknown) doxycycline (units (un known) date) AdvReac unknown) Intermediate vomitt Verified 06/14/22 14:51 (unknown) (no (unknown) (unknown) fiancee. Patient (units (unknown) date) states the unknown) Toradol and hydrocodone medication did not help (unknown) (no (unknown) (unknown) has appropriate (units (unknown) date) follow-up unknown) established OBGYN. Return precautions reviewed with (unknown) (no (unknown) (unknown) has been doing (units (unknown) date) well until unknown) tonight at 8:00 p.m. had pain in the left pelvis. Had (unknown) (no (unknown) (unknown) her. Work note (units (unknown) date) provided. She unknown) desires discharge home. Pain controlled at time (unknown) (no (unknown) (unknown) household (units (unkn own) date) members: unknown) friend(s) (unknown) (no (unknown) (unknown) hydrocodone 5 (units ( unknown) date) mg-acetaminophen unknown) 325 1 tab PO Q4-6H PRN pain #10 tabs 06/07/22 (unknown) (no (unknown) (unknown) hydrocodone (units (un known) date) would be unknown) effective afterwards. We did agree for short course (unknown) (no (unknown) (unknown) hydrocodone-acet (units (unknown) date) aminophen 5-325 unknown) mg tablet (unknown) (no (unknown) (unknown) hydromorphone 4 (units (unknown) date) mg tablet 4 mg PO unknown) Q4-6H PRN pain #20 tabs 09/23/22 (unknown) (no (unknown) (unknown) hydromorphone (units ( unknown) date) [Dilaudid] 4 mg unknown) tablet (unknown) (no (unknown) (unknown) ketorolac 10 mg (units (unknown) date) tablet 10 mg PO unknown) Q6H PRN pain #14 tabs 06/07/22 (unknown) (no (unknown) (unknown) ketorolac 10 mg (units (unknown) date) tablet unknown) (unknown) (no (unknown) (unknown) mg tablet (units (unkn own) date) unknown) (unknown) (no (unknown) (unknown) nausea and (units (unk nown) date) vomiting. Pain unknown) radiates to the left lower back. Denies . (unknown) (no (unknown) (unknown) note provided. (units (unknown) date) She desires unknown) discharge home. Patient has have low risk (unknown) (no (unknown) (unknown) of discharge. (units ( unknown) date) unknown) (unknown) (no (unknown) (unknown) ondansetron 4 mg (units (unknown) date) disintegrating 4 unknown) mg PO TID-QID PRN nausea and 06/07/22 (unknown) (no (unknown) (unknown) ondansetron 4 mg (units (unknown) date) tablet,disintegra unknown) ting (unknown) (no (unknown) (unknown) ovaries. Normal (units (unknown) date) color Doppler unknown) with arterial/venous spectral tracing of both (unknown) (no (unknown) (unknown) ovaries. (units (unkno wn) date) unknown) (unknown) (no (unknown) (unknown) oxycodone 5 mg (units (unknown) date) tablet 5 mg PO unknown) Q4H PRN pain #20 tabs 04/07/22 (unknown) (no (unknown) (unknown) oxycodone 5 mg (units (unknown) date) tablet unknown) (unknown) (no (unknown) (unknown) pain level. She (units (unknown) date) is had Dilaudid unknown) in the past which did break her pain and home (unknown) (no (unknown) (unknown) pain medication. (units (unknown) date) Call Dr. Bryant, unknown) your OBGYN doctor today for office (unknown) (no (unknown) (unknown) pelvic (units (unkno wn) date) ultrasound. unknown) Patient states feels the same as past ovarian cyst. (unknown) (no (unknown) (unknown) peritoneal signs (units (unknown) date) bowel sounds unknown) present. No CVA tenderness (unknown) (no (unknown) (unknown) prepack of (units (unk nown) date) hydrocodone. She unknown) will follow up with Dr. Bryant for more definitive (unknown) (no (unknown) (unknown) rales, or (units (unkn own) date) rhonchi. unknown) (unknown) (no (unknown) (unknown) relief in the (units ( unknown) date) past unknown) (unknown) (no (unknown) (unknown) tablet vomiting (units (unknown) date) #10 tabs unknown) (unknown) (no (unknown) (unknown) tobacco type: (units ( unknown) date) vaping unknown) (unknown) (no (unknown) (unknown) treatment plan (units (unknown) date) for her ovarian unknown) cyst. Return precautions reviewed with her. (unknown) (no (unknown) (unknown) tube on the (units (un known) date) right side due to unknown) tubo-ovarian abscess. Two years ago. Patient has (unknown) (no (unknown) (unknown) tube on the (units (un known) date) right side due to unknown) tubo-ovarian abscess. Two years ago. Patient (unknown) (no (unknown) (unknown) within the left (units (unknown) date) adnexa. Doppler unknown) and spectral tracing within the bilateral Result panel 569 (unknown) (no (unknown) (unknown) (no value) (units (unk nown) date) unknown) (unknown) (no (unknown) (unknown) [id number] (units (unkno wn) date) unknown) (unknown) (no (unknown) (unknown) 08/31/22 (units (unkno wn) date) unknown) (unknown) (no (unknown) (unknown) 14:13 (units (unkno wn) date) unknown) (unknown) (no (unknown) (unknown) Acne (-2016) (units (u nknown) date) unknown) (unknown) (no (unknown) (unknown) Age/Sex: 21 / F (units (unknown) date) Date of Service: unknown) (unknown) (no (unknown) (unknown) Allergies (units (unkn own) date) unknown) (unknown) (no (unknown) (unknown) [place], [place] (units ( unknown) date) [id number] unknown) (unknown) (no (unknown) (unknown) Anesthesia (units (unk nown) date) unknown) (unknown) (no (unknown) (unknown) Attending Dr: (units ( unknown) date) Sushant Bryant unknown) (unknown) (no (unknown) (unknown) BMI 28.7 (units (unkno wn) date) unknown) (unknown) (no (unknown) (unknown) BP 118/68 (units (unkn own) date) unknown) (unknown) (no (unknown) (unknown) Blood Pressure (units (unknown) date) Location Rt unknown) brachial (unknown) (no (unknown) (unknown) Chlamydia (units (unkn own) date) infection () unknown) (unknown) (no (unknown) (unknown) : 2000 (units (unknown) date) Acct:[id number] unknown) (unknown) (no (unknown) (unknown) Dept at (units (unkno wn) date) . unknown) (unknown) (no (unknown) (unknown) Documented By: (units (unknown) date) Sushant Bryant unknown) 08/31/22 1413 (unknown) (no (unknown) (unknown) Draft (units (unkno wn) date) unknown) (unknown) (no (unknown) (unknown) Endometriosis (units ( unknown) date) () unknown) (unknown) (no (unknown) (unknown) [facility]) (unknown) (no (unknown) (unknown) Gynecology Visit (units (unknown) date) unknown) (unknown) (no (unknown) (unknown) Heavy menstrual (units (unknown) date) period (-2018) unknown) (unknown) (no (unknown) (unknown) Height 5 ft 3 in (units (unknown) date) unknown) (unknown) (no (unknown) (unknown) Intake Note: (units (u nknown) date) unknown) (unknown) (no (unknown) (unknown) Intake performed (units (unknown) date) by: Perry Mancilla unknown) (unknown) (no (unknown) (unknown) Intake (units [...] Medical History (units (unknown) date) (Reviewed unknown) 07/28/22 @ 02:02 by Kyle Bess MD) (unknown) (no (unknown) (unknown) Opioids - (units (unkn own) date) Morphine unknown) Analogues Allergy (Intermediate, Verified 06/14/22 14:51) (unknown) (no (unknown) (unknown) Other Menstrual (units (unknown) date) Period: Other unknown) (unknown) (no (unknown) (unknown) Ovarian cyst (units (u nknown) date) unknown) (unknown) (no (unknown) (unknown) PFSH (units (unkno wn) date) unknown) (unknown) (no (unknown) (unknown) Painful (units (unkno wn) date) menstrual periods unknown) () (unknown) (no (unknown) (unknown) Patient: (units (unkno wn) date) Ade Vidales unknown) MR#: [id number] (unknown) (no (unknown) (unknown) Position Sitting (units (unknown) date) unknown) (unknown) (no (unknown) (unknown) Pt here for ED (units (unknown) date) follow-up and unknown) positive test (unknown) (no (unknown) (unknown) Reason For Visit (units (unknown) date) unknown) (unknown) (no (unknown) (unknown) S/P ACL (units (unkno wn) date) reconstruction unknown) (-06/08/21) (unknown) (no (unknown) (unknown) Signed By: (units (unk nown) date) unknown) (unknown) (no (unknown) (unknown) Smoking Status: (units (unknown) date) Current some day unknown) smoker (unknown) (no (unknown) (unknown) Social History (units (unknown) date) unknown) (unknown) (no (unknown) (unknown) Surgical History (units (unknown) date) (Reviewed unknown) 07/28/22 @ 02:02 by Kyle Bess MD) (unknown) (no (unknown) (unknown) TOA (units [...] (unknown) (unknown) Visit Reasons: (units (unknown) date) [facility] ER F/U, unknown) bleeding and postive pregnacy test (unknown) (no (unknown) (unknown) Vitals (units (unkno wn) date) unknown) (unknown) (no (unknown) (unknown) Weight 162 lb (units ( unknown) date) unknown) (unknown) (no (unknown) (unknown) alcohol intake: (units (unknown) date) current unknown) (unknown) (no (unknown) (unknown) doxycycline (units (un known) date) Adverse Reaction unknown) (Intermediate, Verified 06/14/22 14:51) (unknown) (no (unknown) (unknown) have occurred. (units (unknown) date) If there are any unknown) questions, please contact the Medical Records (unknown) (no (unknown) (unknown) household (units (unkn own) date) members: unknown) friend(s) (unknown) (no (unknown) (unknown) may occur. (units [...] unknown) effort is made to edit content, cabinet abrasive sandblaster errors (unknown) (no (unknown) (unknown) vomitt (units (unkno wn) date) unknown) Result panel 570 (unknown) (no (unknown) (unknown) (no value) (units (unk nown) date) unknown) (unknown) (no (unknown) (unknown) [id number] (units (unkno wn) date) unknown) (unknown) (no (unknown) (unknown) 08/31/22 (units (unkno wn) date) unknown) (unknown) (no (unknown) (unknown) 14:13 (units (unkno wn) date) unknown) (unknown) (no (unknown) (unknown) Acne (-2015) (units (u nknown) date) unknown) (unknown) (no (unknown) (unknown) Age/Sex: 21 / F (units (unknown) date) Date of Service: unknown) (unknown) (no (unknown) (unknown) Allergies (units (unkn own) date) unknown) (unknown) (no (unknown) (unknown) [place], [place] (units ( unknown) date) [id number] unknown) (unknown) (no (unknown) (unknown) Anesthesia (units (unk nown) date) unknown) (unknown) (no (unknown) (unknown) Assessment + (units (u nknown) date) Plan unknown) (unknown) (no (unknown) (unknown) Attending Dr: (units ( unknown) date) Sushant Bryant unknown) (unknown) (no (unknown) (unknown) BMI 28.7 (units (unkno wn) date) unknown) (unknown) (no (unknown) (unknown) BP 118/68 (units (unkn own) date) unknown) (unknown) (no (unknown) (unknown) Blood Pressure (units (unknown) date) Location Rt unknown) brachial (unknown) (no (unknown) (unknown) Chlamydia (units (unkn own) date) infection () unknown) (unknown) (no (unknown) (unknown) : 2000 (units (unknown) date) Acct:[id number] unknown) (unknown) (no (unknown) (unknown) Dept at (units (unkno wn) date) . unknown) (unknown) (no (unknown) (unknown) Documented By: (units (unknown) date) Sushant Bryant unknownFlip MOORE 08/31/22 1413 (unknown) (no (unknown) (unknown) Draft (units (unkno wn) date) unknown) (unknown) (no (unknown) (unknown) Endometriosis (units ( unknown) date) () unknown) (unknown) (no (unknown) (unknown) [facility]) (unknown) (no (unknown) (unknown) Gynecology Visit (units (unknown) date) unknown) (unknown) (no (unknown) (unknown) Heavy menstrual (units (unknown) date) period () unknown) (unknown) (no (unknown) (unknown) Height 5 ft 3 in (units (unknown) date) unknown) (unknown) (no (unknown) (unknown) Intake Note: (units (u nknown) date) unknown) (unknown) (no (unknown) (unknown) Intake performed (units (unknown) date) by: Perry Mancilla unknown) (unknown) (no (unknown) (unknown) Intake (units [...] Medical History (units (unknown) date) (Reviewed unknown) 07/28/22 @ 02:02 by Kyle Bess MD) (unknown) (no (unknown) (unknown) Opioids - (units (unkn own) date) Morphine unknown) Analogues Allergy (Intermediate, Verified 06/14/22 14:51) (unknown) (no (unknown) (unknown) Orders (units (unkno wn) date) unknown) (unknown) (no (unknown) (unknown) Orders: (units (unkno wn) date) unknown) (unknown) (no (unknown) (unknown) Other Menstrual (units (unknown) date) Period: Other unknown) (unknown) (no (unknown) (unknown) Ovarian cyst (units (u nknown) date) unknown) (unknown) (no (unknown) (unknown) PFSH (units (unkno wn) date) unknown) (unknown) (no (unknown) (unknown) POC PREG (units (unkno wn) date) unknown) (unknown) (no (unknown) (unknown) POC Preg Test (units ( unknown) date) Negative Last unknown) Edit by Perry Mancilla MA on 08/31/22 14:25 (unknown) (no (unknown) (unknown) POC Urine (units (unkn own) date) Test unknown) Today R10.2 - Pelvic and perineal pain (unknown) (no (unknown) (unknown) Painful (units (unkno wn) date) menstrual periods unknown) () (unknown) (no (unknown) (unknown) Patient: (units (unkno wn) date) Ade Vidales E unknown) MR#: [id number] (unknown) (no (unknown) (unknown) Position Sitting (units (unknown) date) unknown) (unknown) (no (unknown) (unknown) Preg Expiration (units (unknown) date) [id number] Last Edit unknown) by Perry Mancilla MA on 08/31/22 14:25 (unknown) (no (unknown) (unknown) Preg Lot # (units (unk nown) date) [id number] Last unknown) Edit by Perry Mancilla MA on 08/31/22 14:25 (unknown) (no (unknown) (unknown) Preg QC (units (unkno wn) date) Acceptable? Yes unknown) Last Edit by Perry Mancilla MA on 08/31/22 14:25 (unknown) (no (unknown) (unknown) Pt here for ED (units (unknown) date) follow-up and unknown) positive test (unknown) (no (unknown) (unknown) Reason For Visit (units (unknown) date) unknown) (unknown) (no (unknown) (unknown) Results (units (unkno wn) date) unknown) (unknown) (no (unknown) (unknown) S/P ACL (units (unkno wn) date) reconstruction unknown) (06/08/21) (unknown) (no (unknown) (unknown) Signed By: (units (unk nown) date) unknown) (unknown) (no (unknown) (unknown) Smoking Status: (units (unknown) date) Current some day unknown) smoker (unknown) (no (unknown) (unknown) Social History (units (unknown) date) unknown) (unknown) (no (unknown) (unknown) Surgical History (units (unknown) date) (Reviewed unknown) 07/28/22 @ 02:02 by Kyle Bess MD) (unknown) (no (unknown) (unknown) TOA (units [...] (unknown) (unknown) Visit Reasons: (units (unknown) date) [facility] ER F/U, unknown) bleeding and postive pregnacy test (unknown) (no (unknown) (unknown) Vitals (units (unkno wn) date) unknown) (unknown) (no (unknown) (unknown) Weight 162 lb (units ( unknown) date) unknown) (unknown) (no (unknown) (unknown) alcohol intake: (units (unknown) date) current unknown) (unknown) (no (unknown) (unknown) doxycycline (units (un known) date) Adverse Reaction unknown) (Intermediate, Verified 06/14/22 14:51) (unknown) (no (unknown) (unknown) have occurred. (units (unknown) date) If there are any unknown) questions, please contact the Medical Records (unknown) (no (unknown) (unknown) household (units (unkn own) date) members: unknown) friend(s) (unknown) (no (unknown) (unknown) may occur. (units [...] unknown) effort is made to edit content, cabinet abrasive sandblaster errors (unknown) (no (unknown) (unknown) vomitt (units (unkno wn) date) unknown) Result panel 571 (unknown) (no (unknown) (unknown) (no value) (units (unk nown) date) unknown) (unknown) (no (unknown) (unknown) [id number] (units (unkno wn) date) unknown) (unknown) (no (unknown) (unknown) 08/31/22 (units (unkno wn) date) unknown) (unknown) (no (unknown) (unknown) 14:13 (units (unkno wn) date) unknown) (unknown) (no (unknown) (unknown) Acne (-2016) (units (u nknown) date) unknown) (unknown) (no (unknown) (unknown) Age/Sex: 21 / F (units (unknown) date) Date of Service: unknown) (unknown) (no (unknown) (unknown) Allergies (units (unkn own) date) unknown) (unknown) (no (unknown) (unknown) [place], [place] (units ( unknown) date) [id number] unknown) (unknown) (no (unknown) (unknown) Anesthesia (units (unk nown) date) unknown) (unknown) (no (unknown) (unknown) Assessment + (units (u nknown) date) Plan unknown) (unknown) (no (unknown) (unknown) Attending Dr: (units ( unknown) date) Sushant Bryant unknown) (unknown) (no (unknown) (unknown) BMI 28.7 (units (unkno wn) date) unknown) (unknown) (no (unknown) (unknown) BP 118/68 (units (unkn own) date) unknown) (unknown) (no (unknown) (unknown) Blood Pressure (units (unknown) date) Location Rt unknown) brachial (unknown) (no (unknown) (unknown) Chief Complaint (units (unknown) date) unknown) (unknown) (no (unknown) (unknown) Chief Complaint: (units (unknown) date) LLQ/pelvic pain, unknown) abnormal uterine bleeding, + hCG at home (unknown) (no (unknown) (unknown) Chlamydia (units (unkn own) date) infection () unknown) (unknown) (no (unknown) (unknown) : 2000 (units (unknown) date) Acct:[id number] unknown) (unknown) (no (unknown) (unknown) Dept at (units (unkno wn) date) . unknown) (unknown) (no (unknown) (unknown) Details: (units (unkno wn) date) unknown) (unknown) (no (unknown) (unknown) Documented By: (units (unknown) date) Sushant Bryant unknownFlip MOORE 08/31/22 1413 (unknown) (no (unknown) (unknown) Draft (units (unkno wn) date) unknown) (unknown) (no (unknown) (unknown) Endometriosis (units ( unknown) date) () unknown) (unknown) (no (unknown) (unknown) [facility]) (unknown) (no (unknown) (unknown) Ade is a (units (unk nown) date) 21-year-old unknown) nulligravida who returns today for evaluation with a 3 (unknown) (no (unknown) (unknown) Gynecology Visit (units (unknown) date) unknown) (unknown) (no (unknown) (unknown) HPI (units (unkno wn) date) unknown) (unknown) (no (unknown) (unknown) Heavy menstrual (units (unknown) date) period (-2019) unknown) (unknown) (no (unknown) (unknown) Height 5 ft 3 in (units (unknown) date) unknown) (unknown) (no (unknown) (unknown) Intake Note: (units (u nknown) date) unknown) (unknown) (no (unknown) (unknown) Intake performed (units (unknown) date) by: Perry Mancilla unknown) (unknown) (no (unknown) (unknown) Intake (units [...] Medical History (units (unknown) date) (Reviewed unknown) 07/28/22 @ 02:02 by Kyle Bess MD) (unknown) (no (unknown) (unknown) Opioids - (units (unkn own) date) Morphine unknown) Analogues Allergy (Intermediate, Verified 06/14/22 14:51) (unknown) (no (unknown) (unknown) Orders (units (unkno wn) date) unknown) (unknown) (no (unknown) (unknown) Orders: (units (unkno wn) date) unknown) (unknown) (no (unknown) (unknown) Other Menstrual (units (unknown) date) Period: Other unknown) (unknown) (no (unknown) (unknown) Ovarian cyst (units (u nknown) date) unknown) (unknown) (no (unknown) (unknown) PFSH (units (unkno wn) date) unknown) (unknown) (no (unknown) (unknown) POC PREG (units (unkno wn) date) unknown) (unknown) (no (unknown) (unknown) POC Preg Test (units ( unknown) date) Negative Last unknown) Edit by Perry Mancilla MA on 08/31/22 14:25 (unknown) (no (unknown) (unknown) POC Urine (units (unkn own) date) Test unknown) Today R10.2 - Pelvic and perineal pain (unknown) (no (unknown) (unknown) Painful (units (unkno wn) date) menstrual periods unknown) () (unknown) (no (unknown) (unknown) Patient: (units (unkno wn) date) Ade Vidales E unknown) MR#: [id number] (unknown) (no (unknown) (unknown) Position Sitting (units (unknown) date) unknown) (unknown) (no (unknown) (unknown) Preg Expiration (units (unknown) date) [id number] Last Edit unknown) by Perry Mancilla MA on 08/31/22 14:25 (unknown) (no (unknown) (unknown) Preg Lot # (units (unk nown) date) [id number] Last unknown) Edit by Perry Mancilla MA on 08/31/22 14:25 (unknown) (no (unknown) (unknown) Preg QC (units (unkno wn) date) Acceptable? Yes unknown) Last Edit by Perry Mancilla MA on 08/31/22 14:25 (unknown) (no (unknown) (unknown) Pt here for ED (units (unknown) date) follow-up and unknown) positive test (unknown) (no (unknown) (unknown) Reason For Visit (units (unknown) date) unknown) (unknown) (no (unknown) (unknown) Results (units (unkno wn) date) unknown) (unknown) (no (unknown) (unknown) S/P ACL (units (unkno wn) date) reconstruction unknown) (-06/08/21) (unknown) (no (unknown) (unknown) Signed By: (units (unk nown) date) unknown) (unknown) (no (unknown) (unknown) Smoking Status: (units (unknown) date) Current some day unknown) smoker (unknown) (no (unknown) (unknown) Social History (units (unknown) date) unknown) (unknown) (no (unknown) (unknown) Surgical History (units (unknown) date) (Reviewed unknown) 07/28/22 @ 02:02 by Kyle Bess MD) (unknown) (no (unknown) (unknown) TOA (units [...] (unknown) (unknown) Visit Reasons: (units (unknown) date) [facility] ER F/U, unknown) bleeding and postive pregnacy test (unknown) (no (unknown) (unknown) Vitals (units (unkno wn) date) unknown) (unknown) (no (unknown) (unknown) Weight 162 lb (units ( unknown) date) unknown) (unknown) (no (unknown) (unknown) alcohol intake: (units (unknown) date) current unknown) (unknown) (no (unknown) (unknown) and half month (units ( unknown) date) history of unknown) persistent left lower quadrant pain which is sharp and (unknown) (no (unknown) (unknown) doxycycline (units (un known) date) Adverse Reaction unknown) (Intermediate, Verified 06/14/22 14:51) (unknown) (no (unknown) (unknown) have occurred. (units (unknown) date) If there are any unknown) questions, please contact the Medical Records (unknown) (no (unknown) (unknown) household (units (unkn own) date) members: unknown) friend(s) (unknown) (no (unknown) (unknown) may occur. (units (unk nown) date) Occasional unknown) wrong-word or 'sound-alike' substitutions may have (unknown) (no (unknown) (unknown) now (units (unkno wn) date) unknown) (unknown) (no (unknown) (unknown) occurred due to (units (unknown) date) the inherent unknown) limitations of voice recognition software. Please (unknown) (no (unknown) (unknown) rash (units (unkno wn) date) unknown) (unknown) (no (unknown) (unknown) read the note (units ( unknown) date) carefully and unknown) recognize, using context, where these substitutions (unknown) (no (unknown) (unknown) she is been (units (un known) date) bleeding for the unknown) last 2 weeks and her pain has been worse during (unknown) (no (unknown) (unknown) software. (units (unkn own) date) Although every unknown) effort is made to edit content, cabinet abrasive sandblaster errors (unknown) (no (unknown) (unknown) stabbing, and (units ( unknown) date) intermittent. It unknown) does not seem to be related to her cycles but (unknown) (no (unknown) (unknown) that period of (units (unknown) date) time. Her changed unknown) so entered FIGO whenever you dosage of earlier (unknown) (no (unknown) (unknown) vomitt (units (unkno wn) date) unknown) Result panel 572 (unknown) (no (unknown) (unknown) (no value) (units (unk nown) date) unknown) (unknown) (no (unknown) (unknown) [id number] (units (unkno wn) date) unknown) (unknown) (no (unknown) (unknown) 08/31/22 (units (unkno wn) date) unknown) (unknown) (no (unknown) (unknown) 14:13 (units (unkno wn) date) unknown) (unknown) (no (unknown) (unknown) Acne (-2016) (units (u nknown) date) unknown) (unknown) (no (unknown) (unknown) Age/Sex: 21 / F (units (unknown) date) Date of Service: unknown) (unknown) (no (unknown) (unknown) Allergies (units (unkn own) date) unknown) (unknown) (no (unknown) (unknown) [place], [place] (units ( unknown) date) [id number] unknown) (unknown) (no (unknown) (unknown) Anesthesia (units (unk nown) date) unknown) (unknown) (no (unknown) (unknown) Assessment + Plan (units (unknown) date) unknown) (unknown) (no (unknown) (unknown) Attending Dr: (units ( unknown) date) Sushant Bryant MD unknown) (unknown) (no (unknown) (unknown) BMI 28.7 (units (unkno wn) date) unknown) (unknown) (no (unknown) (unknown) BP 118/68 (units (unkn own) date) unknown) (unknown) (no (unknown) (unknown) Blood Pressure (units (unknown) date) Location Rt unknown) brachial (unknown) (no (unknown) (unknown) Chief Complaint (units (unknown) date) unknown) (unknown) (no (unknown) (unknown) Chief Complaint: (units (unknown) date) LLQ/pelvic pain, unknown) abnormal uterine bleeding, + hCG at home (unknown) (no (unknown) (unknown) Chlamydia (units (unkn own) date) infection () unknown) (unknown) (no (unknown) (unknown) Chlamydia/Gonoc/M (units (unknown) date) yco Genital Today unknown) N89.8 - Other specified noninflammatory (unknown) (no (unknown) (unknown) : 2000 (units (unknown) date) Acct:[id number] unknown) (unknown) (no (unknown) (unknown) Dept at (units (unkno wn) date) . unknown) (unknown) (no (unknown) (unknown) Details: (units (unkno wn) date) unknown) (unknown) (no (unknown) (unknown) Documented By: (units (unknown) date) Sushant Bryant MD unknown) 08/31/22 1413 (unknown) (no (unknown) (unknown) Draft (units (unkno wn) date) unknown) (unknown) (no (unknown) (unknown) Endometriosis (units ( unknown) date) () unknown) (unknown) (no (unknown) (unknown) [facility]) (unknown) (no (unknown) (unknown) [facility] (units (unknown) date) ED and according unknown) to the patient an hCG was done in July (unknown) (no (unknown) (unknown) Ade is a (units (unk nown) date) 21-year-old unknown) nulligravida who returns today for evaluation with a 3 (unknown) (no (unknown) (unknown) Gynecology Visit (units (unknown) date) unknown) (unknown) (no (unknown) (unknown) HPI (units (unkno wn) date) unknown) (unknown) (no (unknown) (unknown) Heavy menstrual (units (unknown) date) period (-2018) unknown) (unknown) (no (unknown) (unknown) Height 5 ft 3 in (units (unknown) date) unknown) (unknown) (no (unknown) (unknown) Intake Note: (units (u nknown) date) unknown) (unknown) (no (unknown) (unknown) Intake performed (units (unknown) date) by: Perry Mancilla unknown) (unknown) (no (unknown) (unknown) Intake (units [...] (unknown) Medical History (units (unknown) date) (Reviewed 07/28/22 unknown) @ 02:02 by Kyle Bess MD) (unknown) (no (unknown) (unknown) Opioids - (units (unkn own) date) Morphine Analogues unknown) Allergy (Intermediate, Verified 06/14/22 14:51) (unknown) (no (unknown) (unknown) Orders (units (unkno wn) date) unknown) (unknown) (no (unknown) (unknown) Orders: (units (unkno wn) date) unknown) (unknown) (no (unknown) (unknown) Other Menstrual (units (unknown) date) Period: Other unknown) (unknown) (no (unknown) (unknown) Ovarian cyst (units (u nknown) date) unknown) (unknown) (no (unknown) (unknown) PFSH (units (unkno wn) date) unknown) (unknown) (no (unknown) (unknown) POC PREG (units (unkno wn) date) unknown) (unknown) (no (unknown) (unknown) POC Preg Test (units ( unknown) date) Negative Last Edit unknown) by Perry Mancilla MA on 08/31/22 14:25 (unknown) (no (unknown) (unknown) POC Urine (units (unkn own) date) Test unknown) Today R10.2 - Pelvic and perineal pain (unknown) (no (unknown) (unknown) Painful menstrual (units (unknown) date) periods () unknown) (unknown) (no (unknown) (unknown) Patient: (units (unkno wn) date) Ade Vidales unknown) MR#: [id number] (unknown) (no (unknown) (unknown) Position Sitting (units (unknown) date) unknown) (unknown) (no (unknown) (unknown) Preg Expiration (units (unknown) date) [id number] Last Edit unknown) by Perry Mancilla MA on 08/31/22 14:25 (unknown) (no (unknown) (unknown) Preg Lot # (units (unk nown) date) [id number] Last unknown) Edit by Perry Mancilla MA on 08/31/22 14:25 (unknown) (no (unknown) (unknown) Preg QC (units (unkno wn) date) Acceptable? Yes unknown) Last Edit by Perry Mancilla MA on 08/31/22 14:25 (unknown) (no (unknown) (unknown) Pt here for ED (units (unknown) date) follow-up and unknown) positive test (unknown) (no (unknown) (unknown) Reason For Visit (units (unknown) date) unknown) (unknown) (no (unknown) (unknown) Results (units (unkno wn) date) unknown) (unknown) (no (unknown) (unknown) S/P ACL (units (unkno wn) date) reconstruction unknown) (-06/08/21) (unknown) (no (unknown) (unknown) Signed By: (units (unk nown) date) unknown) (unknown) (no (unknown) (unknown) Smoking Status: (units (unknown) date) Current some day unknown) smoker (unknown) (no (unknown) (unknown) Social History (units (unknown) date) unknown) (unknown) (no (unknown) (unknown) Surgical History (units (unknown) date) (Reviewed 07/28/22 unknown) @ 02:02 by Kyle Bess MD) (unknown) (no (unknown) (unknown) TOA (tubo-ovarian (units (unknown) date) abscess) unknown) (-06/28/21) (unknown) (no (unknown) (unknown) This note may (units ( unknown) date) have been all or unknown) partially generated using voice recognition (unknown) (no (unknown) (unknown) Tobacco + (units (unkn own) date) Substance Use unknown) (unknown) (no (unknown) (unknown) Tobacco Status (units (unknown) date) unknown) (unknown) (no (unknown) (unknown) Visit Reasons: [facility]H (units (unknown) date) ER F/U, bleeding unknown) and postive pregnacy test (unknown) (no (unknown) (unknown) Vitals (units (unkno wn) date) unknown) (unknown) (no (unknown) (unknown) Weight 162 lb (units ( unknown) date) unknown) (unknown) (no (unknown) (unknown) alcohol intake: (units (unknown) date) current unknown) (unknown) (no (unknown) (unknown) disorders of (units (u nknown) date) vagina, R10.2 - unknown) Pelvic and perineal pain, Z11.3 - Encounter for (unknown) (no (unknown) (unknown) doxycycline (units (un known) date) Adverse Reaction unknown) (Intermediate, Verified 06/14/22 14:51) (unknown) (no (unknown) (unknown) have a bowel (units (u nknown) date) movement or unknown) empties her bladder. Patient has been seen at [facility] (unknown) (no (unknown) (unknown) have occurred. If (units (unknown) date) there are any unknown) questions, please contact the Medical Records (unknown) (no (unknown) (unknown) household (units (unkn own) date) members: friend(s) unknown) (unknown) (no (unknown) (unknown) may occur. (units (unk nown) date) Occasional unknown) wrong-word or 'sound-alike' substitutions may have (unknown) (no (unknown) (unknown) month history of (units (unknown) date) persistent left unknown) lower quadrant pain which is sharp and (unknown) (no (unknown) (unknown) negative but this (units (unknown) date) morning she had a unknown) positive home test. (unknown) (no (unknown) (unknown) occurred due to (units (unknown) date) the inherent unknown) limitations of voice recognition software. Please (unknown) (no (unknown) (unknown) rash (units (unkno wn) date) unknown) (unknown) (no (unknown) (unknown) read the note (units ( unknown) date) carefully and unknown) recognize, using context, where these substitutions (unknown) (no (unknown) (unknown) screening for (units ( unknown) date) infections with a unknown) predominantly sexual mode of transmission (unknown) (no (unknown) (unknown) she is been (units (un known) date) bleeding for the unknown) last 2 weeks and her pain has been worse during (unknown) (no (unknown) (unknown) software. (units (unkn own) date) Although every unknown) effort is made to edit content, cabinet abrasive sandblaster errors (unknown) (no (unknown) (unknown) stabbing, and (units ( unknown) date) intermittent. It unknown) does not seem to be related to her cycles but (unknown) (no (unknown) (unknown) that period of (units (unknown) date) time. In addition unknown) she has significant pain when she strains to (unknown) (no (unknown) (unknown) vomitt (units (unkno wn) date) unknown) (unknown) (no (unknown) (unknown) which was (units (unkn own) date) negative but no unknown) records are available for review. Urine hCG today is Result panel 573 (unknown) (no (unknown) (unknown) (no value) (units (unk nown) date) unknown) (unknown) (no (unknown) (unknown) [id number] (units (unkn own) date) unknown) (unknown) (no (unknown) (unknown) 08/31/22 (units (unkno wn) date) unknown) (unknown) (no (unknown) (unknown) [address] [place] [address] (units (unknown) date) unknown) (unknown) (no (unknown) (unknown) Accession (units (unkn own) date) Number: unknown) [id number] (unknown) (no (unknown) (unknown) Additional (units (unk nown) date) endovaginal unknown) scanning was necessary due to incomplete visualization (unknown) (no (unknown) (unknown) Age/Sex: 21 / F (units (unknown) date) Date of Service: unknown) (unknown) (no (unknown) (unknown) [place], [place] (units ( unknown) date) [id number] unknown) (unknown) (no (unknown) (unknown) Approved by: (units (u nknown) date) germaine Redmond) Poornima on 08/31/2022 at 17:05 (unknown) (no (unknown) (unknown) Bilateral (units (unkn own) date) ovarian unknown) hypoechoic masses with peripheral vascularity. Ectopic (unknown) (no (unknown) (unknown) COMPARISON: (units (un known) date) [facility], unknown) US, US PELVIC COMPLETE, 07/28/2022, 2:14. (unknown) (no (unknown) (unknown) Continued (units (unkn own) date) surveillance and unknown) correlation with serial serum beta-hCG measurements (unknown) (no (unknown) (unknown) : 2000 (units (unknown) date) Acct:[id number] unknown) (unknown) (no (unknown) (unknown) Dictated by: (units (u nknown) date) germaine Redmond) Poornima on 08/31/2022 at 17:02 (unknown) (no (unknown) (unknown) FINDINGS: (units (unkn own) date) unknown) (unknown) (no (unknown) (unknown) IMPRESSION: (units (un known) date) unknown) (unknown) (no (unknown) (unknown) INDICATIONS: (units (u nknown) date) BLEEDING/PELVIC unknown) PAIN. HOME POSITIVE TEST TODAY. (unknown) (no (unknown) (unknown) [facility] (units (unknown) date) unknown) (unknown) (no (unknown) (unknown) Loc: US (units (unkno wn) date) unknown) (unknown) (no (unknown) (unknown) No convincing (units ( unknown) date) evidence of unknown) intrauterine . (unknown) (no (unknown) (unknown) Ordering (units (unkno wn) date) Provider: unknown) Sushant Bryant MD (unknown) (no (unknown) (unknown) PROCEDURE: US (units ( unknown) date) PELVIC COMPLETE unknown) (unknown) (no (unknown) (unknown) Patient: (units (unkno wn) date) Ade Vidales Juan unknown) MR#: M (unknown) (no (unknown) (unknown) Procedure: US (units ( unknown) date) pelvic complete unknown) (unknown) (no (unknown) (unknown) Real-time (units (unkn own) date) scanning was unknown) performed of the pelvic organs, with image (unknown) (no (unknown) (unknown) Signed (units (unkno wn) date) unknown) (unknown) (no (unknown) (unknown) TECHNIQUE: (units (unk nown) date) unknown) (unknown) (no (unknown) (unknown) To assist (units (unkn own) date) unknown) (unknown) (no (unknown) (unknown) Ultrasound (units (unk nown) date) Report unknown) (unknown) (no (unknown) (unknown) Uterine body is (units (unknown) date) normal in size. unknown) Echogenic fluid in the uterine cavity may (unknown) (no (unknown) (unknown) We strive to (units (u nknown) date) produce accurate, unknown) complete, and clear reports of imaging services. (unknown) (no (unknown) (unknown) adnexal and (units (un known) date) endometrial unknown) structures by transabdominal scanning. (unknown) (no (unknown) (unknown) although a (units (unk nown) date) unknown) (unknown) (no (unknown) (unknown) and voice (units (unkn own) date) recognition unknown) software. Therefore, it may contain abnormal punctuation, (unknown) (no (unknown) (unknown) and (units (unkno wn) date) unknown) (unknown) (no (unknown) (unknown) blood products. (units (unknown) date) There is no unknown) definite evidence of gestational sac. There is a (unknown) (no (unknown) (unknown) but smaller 1.5 (units (unknown) date) cm hypoechoic unknown) area in the left ovary. (unknown) (no (unknown) (unknown) cannot be (units (unkn own) date) strictly excluded unknown) for either these locations. (unknown) (no (unknown) (unknown) clinical (units (unkno wn) date) symptoms unknown) recommended. (unknown) (no (unknown) (unknown) corpus luteum or (units (unknown) date) hemorrhagic cyst unknown) could have a similar appearance. There is a (unknown) (no (unknown) (unknown) documentation. (units (unknown) date) unknown) (unknown) (no (unknown) (unknown) inaccuracies. (units ( unknown) date) unknown) (unknown) (no (unknown) (unknown) insertions (units (unk nown) date) and/or omissions. unknown) Occasional wrong-word or sound-alike substitutions (unknown) (no (unknown) (unknown) may (units (unkno wn) date) unknown) (unknown) (no (unknown) (unknown) occur. Though we (units (unknown) date) review the report unknown) and make efforts to correct it, we do (unknown) (no (unknown) (unknown) of the (units (unkno wn) date) unknown) (unknown) (no (unknown) (unknown) peripheral (units (unk nown) date) vascularity. This unknown) could potentially represent an ectopic (unknown) (no (unknown) (unknown) (units (unkn own) date) unknown) (unknown) (no (unknown) (unknown) recommend that (units (unknown) date) unknown) (unknown) (no (unknown) (unknown) represent (units (unkn own) date) unknown) (unknown) (no (unknown) (unknown) similar (units (unkno wn) date) unknown) (unknown) (no (unknown) (unknown) templates (units (unkn own) date) unknown) (unknown) (no (unknown) (unknown) the report be (units ( unknown) date) read carefully in unknown) proper context to recognize any text (unknown) (no (unknown) (unknown) thick-walled 2.7 (units (unknown) date) cm heterogeneous unknown) complex hypoechoic mass in the left ovary (unknown) (no (unknown) (unknown) us in improving (units (unknown) date) patient care, unknown) this report was composed using standard report (unknown) (no (unknown) (unknown) with (units (unkno wn) date) unknown) Result panel 574 (unknown) (no date) (unknown) (unknown) < 2.4 miu/ml (unkn own) (unknown) (no date) (unknown) (unknown) < 2.4 miu/ml (unkn own) Result panel 575 (unknown) (no (unknown) (unknown) (no value) (units (unk nown) date) unknown) (unknown) (no (unknown) (unknown) [id number] (units (unkno wn) date) unknown) (unknown) (no (unknown) (unknown) 08/31/22 (units (unkno wn) date) unknown) (unknown) (no (unknown) (unknown) 14:13 (units (unkno wn) date) unknown) (unknown) (no (unknown) (unknown) Acne (-2015) (units (u nknown) date) unknown) (unknown) (no (unknown) (unknown) Age/Sex: 21 / F (units (unknown) date) Date of Service: unknown) (unknown) (no (unknown) (unknown) Allergies (units (unkn own) date) unknown) (unknown) (no (unknown) (unknown) [place], [place] (units ( unknown) date) [id number] unknown) (unknown) (no (unknown) (unknown) Anesthesia (units (unk nown) date) unknown) (unknown) (no (unknown) (unknown) Assessment + Plan (units (unknown) date) unknown) (unknown) (no (unknown) (unknown) Attending Dr: (units ( unknown) date) Sushant Bryant MD unknown) (unknown) (no (unknown) (unknown) BMI 28.7 (units (unkno wn) date) unknown) (unknown) (no (unknown) (unknown) BP 118/68 (units (unkn own) date) unknown) (unknown) (no (unknown) (unknown) Blood Pressure (units (unknown) date) Location Rt unknown) brachial (unknown) (no (unknown) (unknown) Chief Complaint (units (unknown) date) unknown) (unknown) (no (unknown) (unknown) Chief Complaint: (units (unknown) date) LLQ/pelvic pain, unknown) abnormal uterine bleeding, + hCG at home (unknown) (no (unknown) (unknown) Chlamydia (units (unkn own) date) infection () unknown) (unknown) (no (unknown) (unknown) Chlamydia/Gonoc/M (units (unknown) date) yco Genital unknown) 08/31/22 N89.8 - Other specified noninflammatory (unknown) (no (unknown) (unknown) : 2000 (units (unknown) date) Acct:[id number] unknown) (unknown) (no (unknown) (unknown) Dept at (units (unkno wn) date) . unknown) (unknown) (no (unknown) (unknown) Details: (units (unkno wn) date) unknown) (unknown) (no (unknown) (unknown) Documented By: (units (unknown) date) Sushant Bryant MD unknown) 08/31/22 1413 (unknown) (no (unknown) (unknown) Draft (units (unkno wn) date) unknown) (unknown) (no (unknown) (unknown) Endometriosis (units ( unknown) date) () unknown) (unknown) (no (unknown) (unknown) [facility]) (unknown) (no (unknown) (unknown) [facility] (units (unknown) date) ED and according unknown) to the patient an hCG was done in July (unknown) (no (unknown) (unknown) Ade is a (units (unk nown) date) 21-year-old unknown) nulligravida who returns today for evaluation with a 3 (unknown) (no (unknown) (unknown) Gynecology Visit (units (unknown) date) unknown) (unknown) (no (unknown) (unknown) HPI (units (unkno wn) date) unknown) (unknown) (no (unknown) (unknown) Heavy menstrual (units (unknown) date) period (-2018) unknown) (unknown) (no (unknown) (unknown) Height 5 ft 3 in (units (unknown) date) unknown) (unknown) (no (unknown) (unknown) Intake Note: (units (u nknown) date) unknown) (unknown) (no (unknown) (unknown) Intake performed (units (unknown) date) by: Perry Mancilla unknown) (unknown) (no (unknown) (unknown) Intake (units [...] (unknown) Medical History (units (unknown) date) (Reviewed 07/28/22 unknown) @ 02:02 by Kyle Bess MD) (unknown) (no (unknown) (unknown) Medications: (units (u nknown) date) unknown) (unknown) (no (unknown) (unknown) New (units (unkno wn) date) unknown) (unknown) (no (unknown) (unknown) Opioids - (units (unkn own) date) Morphine Analogues unknown) Allergy (Intermediate, Verified 06/14/22 14:51) (unknown) (no (unknown) (unknown) Orders (units (unkno wn) date) unknown) (unknown) (no (unknown) (unknown) Orders: (units (unkno wn) date) unknown) (unknown) (no (unknown) (unknown) Other Menstrual (units (unknown) date) Period: Other unknown) (unknown) (no (unknown) (unknown) Ovarian cyst (units (u nknown) date) unknown) (unknown) (no (unknown) (unknown) PFSH (units (unkno wn) date) unknown) (unknown) (no (unknown) (unknown) POC PREG (units (unkno wn) date) unknown) (unknown) (no (unknown) (unknown) POC Preg Test (units ( unknown) date) Negative Last Edit unknown) by Perry Mancilla MA on 08/31/22 14:25 (unknown) (no (unknown) (unknown) POC Urine (units (unkn own) date) Test unknown) 08/31/22 R10.2 - Pelvic and perineal pain (unknown) (no (unknown) (unknown) Painful menstrual (units (unknown) date) periods () unknown) (unknown) (no (unknown) (unknown) Patient: (units (unkno wn) date) Ade Vidales E unknown) MR#: [id number] (unknown) (no (unknown) (unknown) Position Sitting (units (unknown) date) unknown) (unknown) (no (unknown) (unknown) Preg Expiration (units (unknown) date) [id number] Last Edit unknown) by Perry Mancilla MA on 08/31/22 14:25 (unknown) (no (unknown) (unknown) Preg Lot # (units (unk nown) date) [id number] Last unknown) Edit by Perry Mancilla MA on 08/31/22 14:25 (unknown) (no (unknown) (unknown) Preg QC (units (unkno wn) date) Acceptable? Yes unknown) Last Edit by Perry Mancilla MA on 08/31/22 14:25 (unknown) (no (unknown) (unknown) Pt here for ED (units (unknown) date) follow-up and unknown) positive test (unknown) (no (unknown) (unknown) Reason For Visit (units (unknown) date) unknown) (unknown) (no (unknown) (unknown) Repeat second (units ( unknown) date) dose 48 hrs after unknown) first dose. 150 mg PO Q48H 2 tabs 4RF 2 doses (unknown) (no (unknown) (unknown) Results (units (unkno wn) date) unknown) (unknown) (no (unknown) (unknown) S/P ACL (units (unkno wn) date) reconstruction unknown) (-06/08/21) (unknown) (no (unknown) (unknown) Signed By: (units (unk nown) date) unknown) (unknown) (no (unknown) (unknown) Smoking Status: (units (unknown) date) Current some day unknown) smoker (unknown) (no (unknown) (unknown) Social History (units (unknown) date) unknown) (unknown) (no (unknown) (unknown) Surgical History (units (unknown) date) (Reviewed 07/28/22 unknown) @ 02:02 by Kyle Bess MD) (unknown) (no (unknown) (unknown) TOA (tubo-ovarian (units (unknown) date) abscess) unknown) (-06/28/21) (unknown) (no (unknown) (unknown) This note may (units ( unknown) date) have been all or unknown) partially generated using voice recognition (unknown) (no (unknown) (unknown) Tobacco + (units (unkn own) date) Substance Use unknown) (unknown) (no (unknown) (unknown) Tobacco Status (units (unknown) date) unknown) (unknown) (no (unknown) (unknown) Visit Reasons: IH (units (unknown) date) ER F/U, bleeding unknown) and postive pregnacy test (unknown) (no (unknown) (unknown) Vitals (units (unkno wn) date) unknown) (unknown) (no (unknown) (unknown) Weight 162 lb (units ( unknown) date) unknown) (unknown) (no (unknown) (unknown) alcohol intake: (units (unknown) date) current unknown) (unknown) (no (unknown) (unknown) disorders of (units (u nknown) date) vagina, R10.2 - unknown) Pelvic and perineal pain, Z11.3 - Encounter for (unknown) (no (unknown) (unknown) doxycycline (units (un known) date) Adverse Reaction unknown) (Intermediate, Verified 06/14/22 14:51) (unknown) (no (unknown) (unknown) fluconazole (units (un known) date) (Diflucan) unknown) (unknown) (no (unknown) (unknown) have a bowel (units (u nknown) date) movement or unknown) empties her bladder. Patient has been seen at [facility] (unknown) (no (unknown) (unknown) have occurred. If (units (unknown) date) there are any unknown) questions, please contact the Medical Records (unknown) (no (unknown) (unknown) household (units (unkn own) date) members: friend(s) unknown) (unknown) (no (unknown) (unknown) may occur. (units (unk nown) date) Occasional unknown) wrong-word or 'sound-alike' substitutions may have (unknown) (no (unknown) (unknown) month history of (units (unknown) date) persistent left unknown) lower quadrant pain which is sharp and (unknown) (no (unknown) (unknown) negative but this (units (unknown) date) morning she had a unknown) positive home test. (unknown) (no (unknown) (unknown) occurred due to (units (unknown) date) the inherent unknown) limitations of voice recognition software. Please (unknown) (no (unknown) (unknown) rash (units (unkno wn) date) unknown) (unknown) (no (unknown) (unknown) read the note (units ( unknown) date) carefully and unknown) recognize, using context, where these substitutions (unknown) (no (unknown) (unknown) screening for (units ( unknown) date) infections with a unknown) predominantly sexual mode of transmission (unknown) (no (unknown) (unknown) she is been (units (un known) date) bleeding for the unknown) last 2 weeks and her pain has been worse during (unknown) (no (unknown) (unknown) software. (units (unkn own) date) Although every unknown) effort is made to edit content, cabinet abrasive sandblaster errors (unknown) (no (unknown) (unknown) stabbing, and (units ( unknown) date) intermittent. It unknown) does not seem to be related to her cycles but (unknown) (no (unknown) (unknown) that period of (units (unknown) date) time. In addition unknown) she has significant pain when she strains to (unknown) (no (unknown) (unknown) vomitt (units (unkno wn) date) unknown) (unknown) (no (unknown) (unknown) which was (units (unkn own) date) negative but no unknown) records are available for review. Urine hCG today is Result panel 576 (unknown) (no (unknown) (unknown) (no value) (units (unk nown) date) unknown) (unknown) (no (unknown) (unknown) (1) Chronic pelvic (units (unknown) date) pain in female: unknown) (unknown) (no (unknown) (unknown) (2) [place] (units (u nknown) date) vaginitis: unknown) (unknown) (no (unknown) (unknown) (3) Abnormal (units (u nknown) date) uterine bleeding unknown) (AUB): (unknown) (no (unknown) (unknown) (Diffuse, mild) (units (unknown) date) unknown) (unknown) (no (unknown) (unknown) [id number] (units (unkno wn) date) unknown) (unknown) (no (unknown) (unknown) 08/31/22 (units (unkno wn) date) unknown) (unknown) (no (unknown) (unknown) 09/01/22 0801 (units ( unknown) date) unknown) (unknown) (no (unknown) (unknown) 14:13 (units (unkno wn) date) unknown) (unknown) (no (unknown) (unknown) ? (units (unkno wn) date) unknown) (unknown) (no (unknown) (unknown) ?? (units (unkno wn) date) unknown) (unknown) (no (unknown) (unknown) Acne (-2016) (units (u nknown) date) unknown) (unknown) (no (unknown) (unknown) Affect: normal (units (unknown) date) affect unknown) (unknown) (no (unknown) (unknown) Age/Sex: 21 / F (units (unknown) date) Date of Service: unknown) (unknown) (no (unknown) (unknown) Allergies (units (unkn own) date) unknown) (unknown) (no (unknown) (unknown) [place] [id number] (unit s (unknown) date) unknown) (unknown) (no [...] cooperative unknown) (unknown) (no (unknown) (unknown) BMI 28.7 (units (unkno wn) date) unknown) (unknown) (no (unknown) (unknown) BP 118/68 (units (unkn own) date) unknown) (unknown) (no (unknown) (unknown) Bilateral ovarian (units (unknown) date) hypoechoic masses unknown) with peripheral vascularity.? Ectopic (unknown) (no (unknown) (unknown) Bimanual Exam- (units (unknown) date) Adnexa, other: unknown) adnexae mobile, no masses, normal, tender on the (unknown) (no (unknown) (unknown) Bimanual Exam- (units (unknown) date) Vagina + Uterus: unknown) uterine size normal, uterine mobility normal, (unknown) (no (unknown) (unknown) Blood Pressure (units (unknown) date) Location Rt brachial unknown) (unknown) (no (unknown) (unknown) Chief Complaint (units (unknown) date) unknown) (unknown) (no (unknown) (unknown) Chief Complaint: (units (unknown) date) LLQ/pelvic pain, unknown) abnormal uterine bleeding, + hCG at home (unknown) (no (unknown) (unknown) Chlamydia infection (unit s (unknown) date) () unknown) (unknown) (no (unknown) (unknown) Chlamydia/Gonoc/Myc (unit s (unknown) date) o Genital 08/31/22 unknown) N89.8 - Other specified noninflammatory (unknown) (no (unknown) (unknown) Conjunctivae: (units ( unknown) date) conjunctivae normal unknown) (unknown) (no (unknown) (unknown) Const (units (unkno wn) date) unknown) (unknown) (no (unknown) (unknown) Continued (units (unkn own) date) surveillance and unknown) correlation with serial serum beta-hCG measurements (unknown) (no (unknown) (unknown) Counseling and (units (unknown) date) educating the unknown) patient/family/careg iver: 5 (unknown) (no (unknown) (unknown) : 2000 (units (unknown) date) Acct:[id number] unknown) (unknown) (no (unknown) (unknown) Dept at (units (unkno wn) date) . unknown) (unknown) (no (unknown) (unknown) Details: (units (o wn) date) unknown) (unknown) (no (unknown) (unknown) Documented By: (units (unknown) date) Sushant Bryant MD unknown) 08/31/22 1413 (unknown) (no (unknown) (unknown) Documenting (units (un known) date) clinical information unknown) in EHR/Medical record: 5 (unknown) (no (unknown) (unknown) EOM: EOM intact (units (unknown) date) bilaterally unknown) (unknown) (no (unknown) (unknown) Ears: hearing (units ( unknown) date) grossly normal unknown) bilaterally (unknown) (no (unknown) (unknown) Effort + (units (o wn) date) Inspection: normal unknown) respiratory effort and able to speak in complete (unknown) (no (unknown) (unknown) Endometriosis (units ( unknown) date) () unknown) (unknown) (no (unknown) (unknown) Exam (units (o wn) date) unknown) (unknown) (no (unknown) (unknown) External Female (units (unknown) date) Exam: normal unknown) external appearance, normal appearance of the (unknown) (no (unknown) (unknown) Eyes (units (unkno wn) date) unknown) (unknown) (no (unknown) (unknown) FINDINGS:? (units (unk nown) date) unknown) (unknown) (no (unknown) (unknown) Face and sinus: (units (unknown) date) face symmetric unknown) (unknown) (no (unknown) (unknown) [facility] unknown) (unknown) (no (unknown) (unknown) GC/CT obtained and (units (unknown) date) submitted. unknown) (unknown) (no (unknown) (unknown) GI (units (o wn) date) unknown) (unknown) (no (unknown) (unknown) (units (o wn) date) unknown) (unknown) (no (unknown) [facility] and according to the unknown) patient an hCG was done in July (unknown) (no (unknown) (unknown) General: appearance (unit s (unknown) date) normal, both eyes unknown) and all related structures (unknown) (no (unknown) (unknown) General: (units (unkno wn) date) cooperative, unknown) comfortable and no acute distress (unknown) (no (unknown) (unknown) Ade is a (units (unk nown) date) 21-year-old unknown) nulligravida who returns today for evaluation with a 3 (unknown) (no (unknown) (unknown) Gynecology Visit (units [...] (unknown) (no (unknown) (unknown) Height 5 ft 3 in (units (unknown) date) unknown) (unknown) (no (unknown) (unknown) IMPRESSION:? (units (u nknown) date) unknown) (unknown) (no (unknown) (unknown) Insertion of a (units ( unknown) date) Mirena IUD in the unknown) office or at the time of laparoscopy would also (unknown) (no (unknown) (unknown) Inspection: normal (units (unknown) date) to inspection unknown) (unknown) (no (unknown) (unknown) Intake Note: (units (u nknown) date) unknown) (unknown) (no (unknown) (unknown) Intake performed (units (unknown) date) by: Perry Mancilla unknown) (unknown) (no (unknown) (unknown) Intake (units [...] (unknown) Medical History (units (unknown) date) (Reviewed 07/28/22 @ unknown) 02:02 by Kyle Bess MD) (unknown) (no (unknown) (unknown) Medications: (units (u [...] date) unknown) (unknown) (no (unknown) (unknown) No convincing (units ( unknown) date) evidence of unknown) intrauterine . (unknown) (no (unknown) (unknown) Nutritional (units (un known) date) Appearance: average unknown) body habitus (unknown) (no (unknown) (unknown) Obtaining and/or (units (unknown) date) reviewing separately unknown) obtained history: 5 (unknown) (no (unknown) (unknown) Opioids - Morphine (units (unknown) date) Analogues Allergy unknown) (Intermediate, Verified 06/14/22 14:51) (unknown) (no (unknown) (unknown) Ordering (units (unkno [...] nknown) date) unknown) (unknown) (no (unknown) (unknown) P.O. Diflucan for (units (unknown) date) candidal unknown) vulvovaginitis. (unknown) (no (unknown) (unknown) PFSH (units (unkno wn) date) unknown) (unknown) (no (unknown) (unknown) POC PREG (units (unkno wn) date) unknown) (unknown) (no (unknown) (unknown) POC Preg Test (units ( unknown) date) Negative Last Edit unknown) by ePrry Mancilla MA on 08/31/22 14:25 (unknown) (no (unknown) (unknown) POC Urine (unit s (unknown) date) Test 08/31/22 R10.2 unknown) - Pelvic and perineal pain (unknown) (no (unknown) (unknown) Painful menstrual (units (unknown) date) periods () unknown) (unknown) (no (unknown) (unknown) Palpation: soft, no (unit s (unknown) date) hepatosplenomegaly unknown) and tender (Direct tenderness LLQ) (unknown) (no (unknown) (unknown) Patient to be (units ( unknown) date) contacted with unknown) results of hCG and ultrasound with discussion (unknown) (no (unknown) (unknown) Patient: (units (unkno wn) date) Ade Vidales unknown) MR#: [id number] (unknown) (no (unknown) (unknown) Pelvic Support: (units (unknown) date) normal unknown) (unknown) (no (unknown) (unknown) Performing a (units (u nknown) date) medically unknown) appropriate exam and/or evaluation: 5 (unknown) (no (unknown) (unknown) Plan (units (unkno wn) date) unknown) (unknown) (no (unknown) (unknown) Position Sitting (units (unknown) date) unknown) (unknown) (no (unknown) (unknown) Preg Expiration (units (unknown) date) [id number] Last Edit by unknown) Perry Mancilla MA on 08/31/22 14:25 (unknown) (no (unknown) (unknown) Preg Lot # (units (unk nown) date) [id number] Last Edit unknown) by Perry Mancilla MA on 08/31/22 14:25 (unknown) (no (unknown) (unknown) Preg QC Acceptable? (unit s (unknown) date) Yes Last Edit by unknown) Perry Mancilla MA on 08/31/22 14:25 (unknown) (no (unknown) (unknown) Preparing to see (units (unknown) date) the patient, i.e., unknown) chart review, review of tests: 5 (unknown) (no (unknown) (unknown) Problem-specific (units (unknown) date) ROS positives unknown) included with the HPI (unknown) (no (unknown) (unknown) Psych (units (unkno wn) date) unknown) (unknown) (no (unknown) (unknown) Pt here for ED (units (unknown) date) follow-up and unknown) positive test (unknown) (no (unknown) (unknown) ROS Narrative (units ( unknown) date) unknown) (unknown) (no (unknown) (unknown) ROS Narrative: (units (unknown) date) unknown) (unknown) (no (unknown) (unknown) ROS (units (unkno wn) date) unknown) (unknown) (no (unknown) (unknown) Reason For Visit (units (unknown) date) unknown) (unknown) (no (unknown) (unknown) Recto-Vaginal: no (units (unknown) date) cul-de-sac fullness, unknown) cul-de-sac tenderness (Mild) and no (unknown) (no (unknown) (unknown) Repeat second dose (units (unknown) date) 48 hrs after first unknown) dose. 150 mg PO Q48H 2 tabs 4RF (unknown) (no (unknown) (unknown) Resp (units (unkno wn) date) unknown) (unknown) (no (unknown) (unknown) Results (units (unkno wn) date) unknown) (unknown) (no [...] (unknown) (unknown) Smoking Status: (units (unknown) date) Current some day unknown) smoker (unknown) (no (unknown) (unknown) Social History (units (unknown) date) unknown) (unknown) (no (unknown) (unknown) Speculum Exam - (units (unknown) date) Cervix: normal unknown) appearance of the cervix, no cervical discharge, (unknown) (no (unknown) (unknown) Speculum Exam - (units (unknown) date) Vagina: normal unknown) appearance of the vagina, abnormal vaginal (unknown) (no (unknown) (unknown) Speech and (units (unk nown) date) Movement: speech and unknown) movement normal (unknown) (no (unknown) (unknown) Status: Acute (units ( unknown) date) unknown) (unknown) (no (unknown) (unknown) Surgical History (units (unknown) date) (Reviewed 07/28/22 @ unknown) 02:02 by Kyle Bess MD) (unknown) (no (unknown) (unknown) TOA (tubo-ovarian [...] the unknown) urethra (unknown) (no (unknown) (unknown) Uterine body is (units (unknown) date) normal in size.? unknown) Echogenic fluid in the uterine cavity may (unknown) (no (unknown) (unknown) Visit Reasons: IH (units (unknown) date) ER F/U, bleeding and unknown) postive pregnacy test (unknown) (no (unknown) (unknown) Vitals (units (unkno wn) date) unknown) (unknown) (no (unknown) (unknown) Weight 162 lb (units ( unknown) date) unknown) (unknown) (no (unknown) (unknown) alcohol intake: (units (unknown) date) current unknown) (unknown) (no (unknown) (unknown) although a (units (unk nown) date) unknown) (unknown) (no (unknown) (unknown) and (units (unkno wn) date) unknown) (unknown) (no (unknown) (unknown) associated with (units (unknown) date) scarring of the left unknown) fallopian tube which was noted at the time (unknown) (no (unknown) (unknown) ay occur. (units (unkn own) date) Occasional unknown) wrong-word or 'sound-alike' substitutions may have (unknown) (no (unknown) (unknown) be a potential (units (unknown) date) option. Will discuss unknown) further with the patient and proceed as she (unknown) (no (unknown) (unknown) blood products.? (units (unknown) date) There is no definite unknown) evidence of gestational sac.? There is a (unknown) (no (unknown) (unknown) but smaller 1.5 cm (units (unknown) date) hypoechoic area in unknown) the left ovary.? (unknown) (no (unknown) (unknown) cannot be strictly (units (unknown) date) excluded for either unknown) these locations. (unknown) (no (unknown) (unknown) clinical symptoms (units (unknown) date) recommended. unknown) (unknown) (no (unknown) (unknown) corpus luteum or (units (unknown) date) hemorrhagic cyst unknown) could have a similar appearance.? There is a (unknown) (no (unknown) (unknown) cul-de-sac (units (unk nown) date) nodularlity unknown) (unknown) (no (unknown) (unknown) deems appropriate. (units (unknown) date) unknown) (unknown) (no (unknown) (unknown) discharge (Ra[place]; (unit s (unknown) date) confirmed by wet unknown) prep) and no lesions (unknown) (no (unknown) (unknown) disorders of (units (u nknown) date) vagina, R10.2 - unknown) Pelvic and perineal pain, Z11.3 - Encounter for (unknown) (no (unknown) (unknown) doxycycline Adverse (unit s (unknown) date) Reaction unknown) (Intermediate, Verified 06/14/22 14:51) (unknown) (no (unknown) (unknown) fluconazole (units (un known) date) (Diflucan) unknown) (unknown) (no (unknown) (unknown) have a bowel (units (u nknown) date) movement or empties unknown) her bladder. Patient has been seen at [facility] (unknown) (no (unknown) (unknown) have occurred. If (units (unknown) date) there are any unknown) questions, please contact the Medical Records (unknown) (no (unknown) (unknown) household members: (units (unknown) date) friend(s) unknown) (unknown) (no (unknown) (unknown) left, No cul-de-sac (unit s (unknown) date) fullness, cul-de-sac unknown) tenderness (Mild) and No cul-de-sac (unknown) (no (unknown) (unknown) month history of (units (unknown) date) persistent left unknown) lower quadrant pain which is sharp and (unknown) (no (unknown) (unknown) ne bleeding is (units (unknown) date) uncertain but most unknown) likely her pain in the left lower quadrant is (unknown) (no (unknown) (unknown) negative but this (units (unknown) date) morning she had a unknown) positive home test. Serum hCG (unknown) (no (unknown) (unknown) no lesions and (units (unknown) date) nontender unknown) (unknown) (no (unknown) (unknown) nodularity (units (unk nown) date) unknown) (unknown) (no (unknown) (unknown) occurred due to the (unit s (unknown) date) inherent limitations unknown) of voice recognition software. Please (unknown) (no (unknown) (unknown) of prior (units (unkno wn) date) laparoscopy. A 2nd unknown) laparoscopy may be warranted for pain relief but (unknown) (no (unknown) (unknown) peripheral (units (unk nown) date) vascularity.? This unknown) could potentially represent an ectopic (unknown) (no (unknown) (unknown) (units (unkn own) date) unknown) (unknown) (no (unknown) (unknown) in the (units (unknown) date) future without unknown) benefit of assisted reproductive technology. (unknown) (no (unknown) (unknown) rash (units (unkno wn) date) unknown) (unknown) (no (unknown) (unknown) read the note (units ( unknown) date) carefully and unknown) recognize, using context, where these substitutions (unknown) (no (unknown) (unknown) regarding potential (unit s (unknown) date) next steps. The unknown) cause of the patient's dysfunctional uteri (unknown) (no (unknown) (unknown) removal of the (units (unknown) date) fallopian tube would unknown) make it impossible for her to become (unknown) (no (unknown) (unknown) represent (units (unkn own) date) unknown) (unknown) (no (unknown) (unknown) screening for (units ( unknown) date) infections with a unknown) predominantly sexual mode of transmission (unknown) (no (unknown) (unknown) sentences (units (unkn own) date) unknown) (unknown) (no (unknown) (unknown) she is been (units (un known) date) bleeding for the unknown) last 2 weeks and her pain has been worse during (unknown) (no (unknown) (unknown) similar (units (unkno wn) date) unknown) (unknown) (no (unknown) (unknown) software. Although (units (unknown) date) every effort is made unknown) to edit content, cabinet abrasive sandblaster errors m (unknown) (no (unknown) (unknown) stabbing, and (units ( unknown) date) intermittent. It unknown) does not seem to be related to her cycles but (unknown) (no (unknown) (unknown) that period of (units (unknown) date) time. In addition unknown) she has significant pain when she strains to (unknown) (no (unknown) (unknown) thick-walled 2.7 cm (units (unknown) date) heterogeneous unknown) complex hypoechoic mass in the left ovary with (unknown) (no (unknown) (unknown) today is also (units ( unknown) date) negative and stat unknown) pelvic US shows: (unknown) (no (unknown) (unknown) urethra and no (units (unknown) date) lesions unknown) (unknown) (no (unknown) (unknown) uterine shape (units ( unknown) date) normal, No tender, unknown) no cervical motion tenderness and tender (unknown) (no (unknown) (unknown) vomitt (units (unkno wn) date) unknown) (unknown) (no (unknown) (unknown) which was negative (units (unknown) date) but no records are unknown) available for review. Urine hCG today is Social History date description facility 2022-06-07 00:00 Current some day smoker [facility] 2022-06-14 00:00 Current some day smoker [facility] 2022-07-28 00:00 Current some day smoker [facility] 2022-08-31 00:00 Current some day smoker [facility] Vital Signs date measurement value units 2022-06-07 00:00 BMI 26.9 kg/m2 2022-06-07 00:00 BMI 87.0 % 2022-06-07 00:00 BP_diastolic 62 mmHg 2022-06-07 00:00 BP_systolic 108 mmHg 2022-06-07 00:00 heart_rate 66 /min 2022-06-07 00:00 height_metric 160.02 cm 2022-06-07 00:00 height_standard 63 in 2022-06-07 00:00 o2_saturation 99 % 2022-06-07 00:00 respiration_rate 14 /min 2022-06-07 00:00 temperature_metric 36.44 C 2022-06-07 00:00 temperature_standard 97.6 F 2022-06-07 00:00 weight_metric 68.99 kg 2022-06-07 00:00 weight_standard 152.1 lb 2022-06-14 00:00 BMI 27.1 kg/m2 2022-06-14 00:00 BMI 87.6 % 2022-06-14 00:00 BP_diastolic 62 mmHg 2022-06-14 00:00 BP_systolic 110 mmHg 2022-06-14 00:00 height_metric 160.02 cm 2022-06-14 00:00 height_standard 63 in 2022-06-14 00:00 weight_metric 69.39 kg 2022-06-14 00:00 weight_standard 152.98 lb 2022-07-28 00:00 BMI 26.5 kg/m2 2022-07-28 00:00 BMI 85.5 % 2022-07-28 00:00 BP_diastolic 57 mmHg 2022-07-28 00:00 BP_systolic 103 mmHg 2022-07-28 00:00 heart_rate 65 /min 2022-07-28 00:00 height_metric 160.02 cm 2022-07-28 00:00 height_standard 63 in 2022-07-28 00:00 o2_saturation 98 % 2022-07-28 00:00 respiration_rate 17 /min 2022-07-28 00:00 weight_metric 68.03 kg 2022-07-28 00:00 weight_standard 149.98 lb 2022-08-31 00:00 BMI 28.7 kg/m2 2022-08-31 00:00 BMI 91.2 % 2022-08-31 00:00 BP_diastolic 68 mmHg 2022-08-31 00:00 BP_systolic 118 mmHg 2022-08-31 00:00 height_metric 160.02 cm 2022-08-31 00:00 height_standard 63 in 2022-08-31 00:00 weight_metric 73.48 kg 2022-08-31 00:00 weight_standard 162 lb
[2022-09-02] MEDS ORDERED: predniSONE 20 MG TABLET PO STA (22:48)
[2022-09-02] MEDS ORDERED: BACITRACIN/POLYMYXIN OPHTH OINT 3.5 GM EACHEYE STA (22:49)
[2022-09-02] MEDS ORDERED: ERYTHROMYCIN OPHTH OINT 1 GM TUBE EACHEYE STA (22:59)
--- NOTE | 2022-09-02 23:25 | ED Physician Documentation ---
PD HPI SKIN - Stated complaint Stated Complaint: ALERGIC REACTION - Chief complaint Chief Complaint: Allergic Rx - History obtained from History obtained from: Patient - History of Present Illness Timing - onset: How many hours ago (2) Quality / character: Itchy, Painful, Burning - Additional information Additional information: HPI from patient. Patient had false eyelashes paced bilaterally at a salon using adhesive material. 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 She denies change in vision, fever. She says she has had similar, though noticeably milder, such symptoms with previous applications. Review of Systems Constitutional: denies: Fever, Chills, Sweats Eyes: reports: Irritation. 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 Psych: Depression Other Past Medical History: Acne - Past Surgical History Past Surgical History: Yes Ortho: ACL reconstruction /FRIT COATER: Oophrectomy, Other - Present Medications Home Medications: Ambulatory Orders Medication Instructions Recorded Confirmed Amoxicillin 500 mg PO BID 09/02/22 09/02/22 Bacitracin/Polymyxin Ophth Oin 1 applic EACHEYE BID #7 gm 09/02/22 [Polysporin Ophth Oint] Sertraline [Zoloft] 25 mg PO DAILY 09/02/22 09/02/22 predniSONE [Deltasone] 40 mg PO DAILY 3 Days #6 tablet 09/02/22 - Allergies Allergies/Adverse Reactions: Allergies Allergy/AdvReac Type Severity Reaction Status Date / Time doxycycline Allergy Unknown Verified 09/02/22 22:04 lactose Allergy Unknown Verified 09/02/22 22:04 morphine Allergy Unknown Verified 09/02/22 22:04 Morpholine Analogues Allergy Hives Verified 09/02/22 22:04 Dairy Allergy Unknown Uncoded 09/02/22 22:04 - Social History Does the pt smoke?: No Smoking Status: Never smoker Does the pt drink ETOH?: No Does the pt have substance abuse?: No - Immunizations Immunizations are current?: Yes - POLST Patient has POLST: No PD ED PE NORMAL - Vitals Vital signs reviewed: Yes - General General: Alert and oriented X 3, No acute distress, Well developed/nourished - HEENT HEENT: PERRL, EOMI PD ED PE EXPANDED - Eyes Eyes: PERRL, Normal accommodation, EOMI, Both eyes, Eyelid swelling (bilateral upper eyelid mild/moderate swelling with mild erythema), Eyelid erythema, Nl conjunctiva/sclera. No: Exudate, Subconj hemorrhage Results - Vitals Vitals: Vital Signs - 24 hr 09/02/22 21:59 Temperature 37.0 C Heart Rate 90 Respiratory 17 Rate Blood Pressure 127/77 O2 Saturation 98 Oxygen O2 Source Room air PD Medical Decision Making - ED course Complexity details: considered differential, d/w patient ED course: patient is able to find the adhesive produce that was used on the upper eyelids and it is a cyanoacrylate-based medication. The erythem , swelling, and intense pruritis are consistent with focal/contact dermatitis. She is given 40mg PO prednisone and rx for same x 3 more days. erythromycin ointment is applied to both upper lids along eyelash lines; she is provided rx for bacitracin ointment to be used twice per day to these same upper eyelash lines; this should help weaken the bee of the glue faster and hopefully she can gently remove the lashes them selves once enough of the glue his dissipated. Departure - Departure Disposition: 01 Home, Self Care Clinical Impression: Contact dermatitis Qualifiers: Contact dermatitis type: allergic Contact dermatitis trigger: adhesive Quali fied Code(s): L23.1 - Allergic contact dermatitis due to adhesives Condition: Good Instructions: ED Dermatitis Contact Prescriptions: predniSONE [Deltasone] 40 mg PO DAILY 3 Days #6 tablet Bacitracin/Polymyxin Ophth Oin [Polysporin Ophth Oint] 1 applic EACHEYE BID #7 gm Comments: You appear to be having a local reaction to the adhesive that was used when the eyelashes were placed earlier tonight. As we discussed, the ingredients of the product that you showed to me that was used is a particular strong adhesive; the antibiotic ointment that was applied tonight (I have also electronically submitted a prescription for this to the [facility] in [place]) should help break up the adhesive. You are also given a dose of a steroid (prednisone), which is often used for allergic reaction. The onset effect of the steroid is typically quite gradual over the course of several hours, but it should eventually help reduce the swelling/inflammation of the eyelids until the adhesive weakens enough to allow for removal of the eyelashes. I have also electronically submitted a prescription for 3 more days of the steroid to the [facility] in [place]. As we discussed, I recommend that you take Benadryl as soon as you get home (25 to 50 mg orally every 6 hours as needed for symptoms). This might help in a more cherry fashion than the other medications in regards to the symptoms including the swelling and itching. Do not drive for minimum of 6 hours after taking a dose of Benadryl. Discharge Date/Time: 09/02/22 23:10
== END 2022-09-02 23:10 | disposition home or self-care (01) ==
LOC: ED 21:51
DX: L23.1 Allergic contact dermatitis due to adhesives (principal)
CPT/HCPCS: 99282; 99283; J3490; J7512

== ENCOUNTER 2022-11-03 21:28 | Emergency (ER) | payer OTHER ==
--- OUTSIDE RECORDS SUMMARY | 2022-11-03 21:42 | EXTERNAL MEDICAL SUMMARY RPT | Continuity of Care Document ---
:2000 Author Organization [facility] Address [address] [place] [address] Phone Care Team Providers Name Role Phone Unavailable Unavailable Unavailable Josefina Matthew Unavailable Unavailable Allergies and Intolerances date description facility type (no date) Opioids - Morphine Analogues [facility] (unknown) (no date) amoxicillin [facility] (unknown) (no date) doxycycline [facility] (unknown) (no date) lactose [facility] (unknown) Encounters No information. Functional Status No information. Immunizations No information. Medications date description facility 2022-10-27 00:[address] [facility] 2022-11-03 00:[address] [facility] 2022-08-31 00:[address] [facility] 2022-10-27 00:[address] [facility] 2022-10-27 00:00 Hydrocodone-Acetaminophen [facility] 2022-11-03 00:00 Hydrocodone-Acetaminophen [facility] Problems date description facility 2022-08-31 14:44 Other specified noninflammatory disorde rs of [facility] vagina 2022-08-31 14:44 Pelvic and perineal pain [facility] 2022-08-31 14:44 Encounter for screening for infections with a [facility] predominantly 2022-08-31 15:06 Hemorrhage in early , unspecif [facility] 2022-08-31 15:[address] [facility] 2022-08-31 15:15 Hemorrhage in early , unspecif [facility] 2022-08-31 15:15 Left upper quadrant pain [facility] 2022-08-31 15:15 [facility] 2022-08-31 15:[address] [facility] 2022-08-31 15:33 Hemorrhage in early , unspecif [facility] 2022-08-31 15:33 [facility] 2022-08-31 15:33 Pelvic and [facility]ineal [facility] 2022-09-01 00:00 Candidiasis of vagina [facility] 2022-09-01 00:00 Abnormal uterine [facility] 2022-09-01 02:58 Other specified noninflammatory disorde rs of [facility] vagina 2022-09-01 02:58 Pelvic and [facility]al [facility] 2022-09-01 02:58 Encounter for screening for infections with a [facility] predominantly 2022-10-07 00:00 Men[address] with irregular cycle [facility] 2022-10-13 00:[address] [facility] 2022-10-27 00:00 Right lower quadrant abdominal pain [facility] 2022-11-03 13:47 Unspecified ovarian cyst, unspecified [facility] 2022-11-03 13:47 [facility] 13:47 Pelvic and perineal pain [facility] 2022-11-03 13:47 Encounter for insertion of [facility] contraceptive device 2022-11-03 16:42 Unspecified ovarian cyst, unspecified [facility] 2022-11-03 16:42 [facility] 16:42 Pelvic and perineal pain [facility] 2022-11-03 16:42 Encounter for insertion of intrauterine [facility] contraceptive device 2022-11-03 16:46 Unspecified ovarian cyst, unspecified [facility] 2022-11-03 16:46 Other specified abnormal uterine and va [facility] bleeding 2022-11-03 16:46 Pelvic and perineal pain [facility] 2022-11-03 16:46 Encounter for insertion of intrauterine [facility] contraceptive device 2022-11-03 17:25 Unspecified ovarian cyst, unspecified [facility] 2022-11-03 17:25 Other [facility] 17:25 Pelvic and [facility]ineal [facility] 2022-11-03 17:25 Encounter for insertion of [facility] contraceptive device 2022-11-03 19:14 Unspecified ovarian cyst, unspecified [facility] 2022-11-03 19:14 Other specified abnormal uterine and va [facility] bleeding 2022-11-03 19:14 Pelvic and [facility]al [facility] 2022-11-03 19:14 Encounter for insertion of intrauterine [facility] contraceptive device Procedures date description facility 2022-08-31 00:00 Complete ultrasound of pelvis [facility] 2022-10-27 00:00 Complete ultrasound of pelvis [facility] 2022-08-31 00:[address] [facility] 2022-10-27 00:00 US Abdomen limited [facility] Results/Labs test date author facility value unit [...] Hospital unknown) Result panel 350 (unknown) (no (unknown) (unknown) (no value) (units (unk nown) date) unknown) (unknown) (no (unknown) (unknown) [id number] (units (unkno wn) date) unknown) (unknown) (no [...] (unknown) LASHA Davison (units ( unknown) date) [address] unknown) (unknown) (no (unknown) (unknown) Anesthesia (units [...] (unknown) (unknown) : 2000 (units (unknown) date) Acct:[id number] unknown) (unknown) (no (unknown) (unknown) Dept at [...] unknown) effort is made to edit content, offset pressman errors (unknown) (no (unknown) (unknown) vomitt (units (unkno wn) date) unknown) Result panel 351 (unknown) (no (unknown) (unknown) (no value) (units (unk nown) date) unknown) (unknown) (no (unknown) (unknown) [id number] (units (unkno wn) date) unknown) (unknown) (no [...] own) date) unknown) (unknown) (no (unknown) (unknown) [place], [place] (units ( unknown) date) [address] unknown) (unknown) (no (unknown) (unknown) Anesthesia (units [...] (unknown) (unknown) : 2000 (units (unknown) date) Acct:[id number] unknown) (unknown) (no (unknown) (unknown) Dept at [...] (unknown) (unknown) Preg Expiration (units (unknown) date) [id number] Last Edit unknown) by Perry Mancilla MA on 08/31/22 14:25 (unknown) (no (unknown) (unknown) Preg Lot # (units (unk nown) date) [id number] Last unknown) Edit by Perry Mancilla MA on 08/31/22 14:25 (unknown) (no (unknown) (unknown) Preg QC (units (unkno wn) date) Acceptable? Yes unknown) Last Edit by Perry Mnacilla MA on 08/31/22 14:25 (unknown) (no (unknown) [...] unknown) effort is made to edit content, offset pressman errors (unknown) (no (unknown) (unknown) vomitt (units (unkno wn) date) unknown) Result panel 352 (unknown) (no (unknown) (unknown) (no value) (units (unk nown) date) unknown) (unknown) (no (unknown) (unknown) [id number] (units (unkno wn) date) unknown) (unknown) (no [...] own) date) unknown) (unknown) (no (unknown) (unknown) [place], [place] (units ( unknown) date) [address] unknown) (unknown) (no (unknown) (unknown) Anesthesia (units [...] (unknown) (unknown) : 2000 (units (unknown) date) Acct:[id number] unknown) (unknown) (no (unknown) (unknown) Dept at [...] (unknown) (unknown) Preg Expiration (units (unknown) date) [id number] Last Edit unknown) by Perry Mancilla MA on 08/31/22 14:25 (unknown) (no (unknown) (unknown) Preg Lot # (units (unk nown) date) [id number] Last unknown) Edit by Perry Mancilla MA [...] unknown) effort is made to edit content, offset pressman errors (unknown) (no (unknown) (unknown) stabbing, and (units ( unknown) date) intermittent. It unknown) does not seem to be related to her cycles but (unknown) (no (unknown) (unknown) that period of (units (unknown) date) time. Her changed unknown) so entered FIG[facility] whenever you dosage of earlier (unknown) (no (unknown) (unknown) vomitt (units (unkno wn) date) unknown) Result panel 353 (unknown) (no date) (unknown) (unknown) Negative (units (unkn own) unknown) (unknown) (no date) (unknown) (unknown) Negative (units 58517 -6 unknown) (unknown) (no date) (unknown) (unknown) Negative (units 55047 -1 unknown) (unknown) (no date) (unknown) (unknown) Negative (units 10542 -5 unknown) Result panel 354 (unknown) (no (unknown) (unknown) (no value) (units (unk nown) date) unknown) (unknown) (no (unknown) (unknown) [id number] (units (unkno wn) date) unknown) (unknown) (no [...] own) date) unknown) (unknown) (no (unknown) (unknown) [place], [place] (units ( unknown) date) [address] unknown) (unknown) (no (unknown) (unknown) Anesthesia (units [...] (unknown) (unknown) : 2000 (units (unknown) date) Acct:[id number] unknown) (unknown) (no (unknown) (unknown) Dept at [...] date) Associates unknown) (unknown) (no (unknown) (unknown) [facility] (units (unknown) date) ED and according [...] (unknown) (unknown) Preg Expiration (units (unknown) date) [id number] Last Edit unknown) by Perry Mancilla MA on 08/31/22 14:25 (unknown) (no (unknown) (unknown) Preg Lot # (units (unk nown) date) [id number] Last unknown) Edit by Perry Mancilla MA [...] her bladder. Patient has been seen at [facility] (unknown) (no (unknown) (unknown) have occurred. If [...] unknown) effort is made to edit content, offset pressman errors (unknown) (no (unknown) (unknown) stabbing, and [...] review. Urine hCG today is Result panel 355 (unknown) (no (unknown) (unknown) (no value) (units (unk nown) date) unknown) (unknown) (no (unknown) (unknown) [id number] (units (unkn own) date) unknown) (unknown) (no (unknown) (unknown) 08/31/22 (units (unkno wn) date) unknown) (unknown) (no (unknown) (unknown) [address] [place] [address] (units (unknown) date) unknown) (unknown) (no (unknown) (unknown) Accession (units (unkn own) date) Number: unknown) [id number] (unknown) (no (unknown) (unknown) Additional (units (unk nown) date) endovaginal unknown) scanning was necessary due to incomplete visualization (unknown) (no (unknown) (unknown) Age/Sex: 21 / F (units (unknown) date) Date of Service: unknown) (unknown) (no (unknown) (unknown) [place], [place] (units ( unknown) date) [address] unknown) (unknown) (no (unknown) (unknown) Approved by: (units (u nknown) date) Oseas Sewell, unknown) Poornima on 08/31/2022 at 17:05 (unknown) (no (unknown) (unknown) Bilateral (units (unkn own) date) ovarian unknown) hypoechoic masses with peripheral vascularity. Ectopic (unknown) (no (unknown) (unknown) COMPARISON: (units (un known) date) [facility], unknown) US, US PELVIC COMPLETE, 07/28/2022, 2:14. (unknown) (no (unknown) (unknown) Continued (units (unkn own) date) surveillance and unknown) correlation with serial serum beta-hCG measurements (unknown) (no (unknown) (unknown) : 2000 (units (unknown) date) Acct:[id number] unknown) (unknown) (no (unknown) (unknown) Dictated by: (units (u nknown) date) Oseas Sewell, germaine) Poornima on 08/31/2022 at 17:02 (unknown) (no (unknown) (unknown) FINDINGS: (units (unkn own) date) unknown) (unknown) (no (unknown) (unknown) IMPRESSION: (units (un known) date) unknown) (unknown) (no (unknown) (unknown) INDICATIONS: (units (u nknown) date) BLEEDING/PELVIC unknown) PAIN. HOME POSITIVE TEST TODAY. (unknown) (no (unknown) (unknown) [facility] (units (unknown) date) unknown) (unknown) (no (unknown) [...] (units (unkno wn) date) unknown) Result panel 356 (unknown) (no date) (unknown) (unknown) < 2.4 miu/ml (unkn own) (unknown) (no date) (unknown) (unknown) < 2.4 miu/ml (unkn own) Result panel 357 (unknown) (no (unknown) (unknown) (no value) (units (unk nown) date) unknown) (unknown) (no (unknown) (unknown) [id number] (units (unkno wn) date) unknown) (unknown) (no [...] own) date) unknown) (unknown) (no (unknown) (unknown) [place], [place] (units ( unknown) date) [address] unknown) (unknown) (no (unknown) (unknown) Anesthesia (units [...] (unknown) (unknown) : 2000 (units (unknown) date) Acct:[id number] unknown) (unknown) (no (unknown) (unknown) Dept at [...] date) Associates unknown) (unknown) (no (unknown) (unknown) [facility] (units (unknown) date) ED and according unknown) [...] (unknown) (unknown) Preg Expiration (units (unknown) date) [id number] Last Edit unknown) by Perry Mancilla MA on 08/31/22 14:25 (unknown) (no (unknown) (unknown) Preg Lot # (units (unk nown) date) [id number] Last unknown) Edit by Perry Mancilla MA [...] her bladder. Patient has been seen at [facility] (unknown) (no (unknown) (unknown) have occurred. If [...] unknown) effort is made to edit content, offset pressman errors (unknown) (no (unknown) (unknown) stabbing, and [...] review. Urine hCG today is Result panel 358 (unknown) (no (unknown) (unknown) (no value) (units [...] (unknown) date) unknown) (unknown) (no (unknown) (unknown) [id number] (units (unkno wn) date) unknown) (unknown) (no [...] own) date) unknown) (unknown) (no (unknown) (unknown) [place] [address] (unit s (unknown) date) unknown) (unknown) (no [...] (unknown) (unknown) : 2000 (units (unknown) date) Acct:[id number] unknown) (unknown) (no (unknown) (unknown) Dept at [...] (unknown) (unknown) Preg Expiration (units (unknown) date) [id number] Last Edit by unknown) Perry Mancilla MA on 08/31/22 14:25 (unknown) (no (unknown) (unknown) Preg Lot # (units (unk nown) date) [id number] Last Edit unknown) by Perry Mancilla MA on 08/31/22 14:25 (unknown) (no (unknown) (unknown) Preg QC Acceptable? (unit s (unknown) date) Yes Last Edit by unknown) Perry MancillaCESAR on 08/31/22 14:25 (unknown) (no (unknown) (unknown) [...] her bladder. Patient has been seen at [facility] (unknown) (no (unknown) (unknown) have occurred. If [...] effort is made unknown) to edit content, offset pressman errors m (unknown) (no (unknown) (unknown) stabbing, [...] review. Urine hCG today is Result panel 359 (unknown) (no date) (unknown) (unknown) Negative (units (unkn own) unknown) (unknown) (no date) (unknown) (unknown) Negative (units (unkn own) unknown) (unknown) (no date) (unknown) (unknown) Negative (units (unkn own) unknown) Result panel 360 (unknown) (no (unknown) (unknown) (no value) (units (unk nown) date) unknown) (unknown) (no (unknown) (unknown) [id number] (units (unkno wn) date) unknown) (unknown) (no (unknown) (unknown) 10/07/22 (units (unkno wn) date) unknown) (unknown) (no (unknown) (unknown) Acne (-2016) (units (u nknown) date) unknown) (unknown) (no (unknown) (unknown) Age/Sex: 21 / F (units (unknown) date) Date of Service: unknown) (unknown) (no (unknown) (unknown) Allergies (units (unkn own) date) unknown) (unknown) (no (unknown) (unknown) [place], [place] (units ( unknown) date) [address] unknown) (unknown) (no (unknown) (unknown) Anesthesia (units (unk nown) date) unknown) (unknown) (no (unknown) (unknown) Attending Dr: (units ( unknown) date) Sushant Bryant unknown) (unknown) (no (unknown) (unknown) Chlamydia (units (unkn own) date) infection () unknown) (unknown) (no (unknown) (unknown) : 2000 (units (unknown) date) Acct:[id number] unknown) (unknown) (no (unknown) (unknown) Dept at (units (unkno wn) date) . unknown) (unknown) (no (unknown) (unknown) Documented By: (units (unknown) date) Sushant Bryant MD 10/07/22 1457 (unknown) (no (unknown) (unknown) Draft (units (unkno wn) date) unknown) (unknown) (no (unknown) (unknown) Endometriosis (units ( unknown) date) () unknown) (unknown) (no (unknown) (unknown) [facility] (units (unknown) date) Associates unknown) (unknown) (no (unknown) (unknown) Gynecology Visit (units (unknown) date) unknown) (unknown) (no (unknown) (unknown) Heavy menstrual (units (unknown) date) period () unknown) (unknown) (no (unknown) (unknown) Hx of (units (unkno wn) date) laparoscopy unknown) (04/07/22) (unknown) (no (unknown) (unknown) Intake Note: (units (u nknown) date) unknown) (unknown) (no (unknown) (unknown) Intake (units [...] (unknown) Medical History (units (unknown) date) (Updated 09/01/22 unknown) @ 07:57 by Sushant Bryant MD) (unknown) (no (unknown) (unknown) Opioids - [...] unknown) MR#: [id number] (unknown) (no (unknown) (unknown) Pt is here for a (units (unknown) date) pre-op unknown) (unknown) (no (unknown) (unknown) Reason For [...] (unknown) Surgical History (units (unknown) date) (Updated 10/07/22 unknown) @ 08:13 by Mile De La Rosa RN) (unknown) (no (unknown) (unknown) TOA (units [...] (unknown) (unknown) Visit Reasons: (units (unknown) date) Pre-op unknown) (unknown) (no (unknown) (unknown) alcohol intake: [...] unknown) effort is made to edit content, offset pressman errors (unknown) (no (unknown) (unknown) vomitt (units (unkno wn) date) unknown) Result panel 361 (unknown) (no (unknown) (unknown) (no value) (units (unk nown) date) unknown) (unknown) (no (unknown) (unknown) #10 tabs (units (unkno wn) date) 06/07/22 [Rx unknown) Confirmed 10/07/22] (unknown) (no (unknown) (unknown) [id number] (units (unkno wn) date) unknown) (unknown) (no (unknown) (unknown) 10/07/22 (units (unkno wn) date) unknown) (unknown) (no (unknown) (unknown) 10/07/22] (units (unkn own) date) unknown) (unknown) (no (unknown) (unknown) 06/07/22 [Rx (units (u nknown) date) Confirmed unknown) 10/07/22] (unknown) (no (unknown) (unknown) 15:00 (units (unkno wn) date) unknown) (unknown) (no (unknown) (unknown) Acne (-2016) (units (u nknown) date) unknown) (unknown) (no (unknown) (unknown) Age/Sex: 21 / F (units (unknown) date) Date of Service: unknown) (unknown) (no (unknown) (unknown) Allergies (units (unkn own) date) unknown) (unknown) (no (unknown) (unknown) [place], [place] (units ( unknown) date) [address] unknown) (unknown) (no (unknown) (unknown) Anesthesia (units (unk nown) date) unknown) (unknown) (no (unknown) (unknown) Attending Dr: (units ( unknown) date) Sushant Bryant unknown) (unknown) (no (unknown) (unknown) BMI 28.7 (units (unkno wn) date) unknown) (unknown) (no (unknown) (unknown) BP 114/66 (units (unkn own) date) unknown) (unknown) (no (unknown) (unknown) Blood Pressure (units (unknown) date) Location Rt unknown) brachial (unknown) (no (unknown) (unknown) Chlamydia (units (unkn own) date) infection () unknown) (unknown) (no (unknown) (unknown) Confirmed (units (unkn own) date) 10/07/22] unknown) (unknown) (no (unknown) (unknown) : 2000 (units (unknown) date) Acct:[id number] unknown) (unknown) (no (unknown) (unknown) Dept at (units (unkno wn) date) . unknown) (unknown) (no (unknown) (unknown) Documented By: (units (unknown) date) Sushant Bryant unknownFlip MOORE 10/07/22 1457 (unknown) (no (unknown) (unknown) Draft (units (unkno [...] (unknown) date) unknown) (unknown) (no (unknown) (unknown) Hx of (units (unkno wn) date) laparoscopy unknown) (04/07/22) (unknown) (no (unknown) (unknown) Intake Note: (units (u nknown) date) unknown) (unknown) (no (unknown) (unknown) Intake (units [...] (unknown) Medical History (units (unknown) date) (Updated 09/01/22 unknown) @ 07:57 by Sushant Bryant MD) (unknown) (no (unknown) (unknown) Medications (units (un known) date) unknown) (unknown) (no (unknown) (unknown) Opioids - (units (unkn own) date) Morphine unknown) Analogues Allergy (Intermediate, Verified 10/07/22 14:59) (unknown) (no (unknown) (unknown) Other Menstrual (units (unknown) date) Period: Other unknown) (unknown) (no (unknown) (unknown) Ovarian cyst (units (u nknown) date) unknown) (unknown) (no (unknown) (unknown) Oxygen Delivery (units (unknown) date) Method room air unknown) (unknown) (no (unknown) (unknown) PFSH (units (unkno wn) date) unknown) (unknown) (no (unknown) (unknown) Painful (units (unkno wn) date) menstrual periods unknown) () (unknown) (no (unknown) (unknown) Patient: (units (unkno wn) date) Ade Vidales E unknown) MR#: [id number] (unknown) (no (unknown) (unknown) Position Sitting (units (unknown) date) unknown) (unknown) (no (unknown) (unknown) Pt is here for a (units (unknown) date) pre-op unknown) (unknown) (no (unknown) (unknown) Pulse 60 (units (unkno wn) date) unknown) (unknown) (no (unknown) (unknown) Pulse Oximetry (units (unknown) date) (%) 99 unknown) (unknown) (no (unknown) (unknown) Pulse Source (units (u nknown) date) Monitor unknown) (unknown) (no (unknown) (unknown) Reason For [...] (unknown) Surgical History (units (unknown) date) (Updated 10/07/22 unknown) @ 08:13 by Mile De La Rosa RN) (unknown) (no (unknown) (unknown) TOA (units (unkno wn) date) (tubo-ovarian unknown) abscess) (06/28/21) (unknown) (no (unknown) (unknown) Temp 98.5 F (units (un known) date) unknown) (unknown) (no (unknown) (unknown) Temp Source (units (un known) date) Temporal Artery unknown) Scan (unknown) (no (unknown) (unknown) This note may (units ( unknown) date) have been all or unknown) partially generated using voice recognition (unknown) (no (unknown) (unknown) Tobacco + (units (unkn own) date) Substance Use unknown) (unknown) (no (unknown) (unknown) Tobacco Status (units (unknown) date) unknown) (unknown) (no (unknown) (unknown) Visit Reasons: (units (unknown) date) Pre-op unknown) (unknown) (no (unknown) (unknown) Vitals (units (unkno wn) date) unknown) (unknown) (no (unknown) (unknown) Vomiting (units (unkno wn) date) unknown) (unknown) (no (unknown) (unknown) Weight 162 lb (units ( unknown) date) unknown) (unknown) (no (unknown) (unknown) [Rx Confirmed (units ( unknown) date) 10/07/22] unknown) (unknown) (no (unknown) (unknown) alcohol intake: (units (unknown) date) current unknown) (unknown) (no (unknown) (unknown) amoxicillin (units (un known) date) Adverse Reaction unknown) (Verified 10/07/22 15:00) (unknown) (no (unknown) (unknown) clindamycin HCl (units (unknown) date) 150 mg capsule unknown) 150 mg PO DAILY #30 caps 03/17/22 [Rx Confirmed (unknown) (no (unknown) (unknown) doxycycline (units (un known) date) Adverse Reaction unknown) (Intermediate, Verified 10/07/22 14:59) (unknown) (no (unknown) (unknown) fluconazole 150 (units (unknown) date) mg tablet unknown) (Diflucan) 150 mg PO Q48H 2 doses #2 tabs 08/31/22 [Rx (unknown) (no (unknown) (unknown) have occurred. (units [...] unknown) effort is made to edit content, offset pressman errors (unknown) (no (unknown) (unknown) vomitt (units (unkno wn) date) unknown) Result panel 362 (unknown) (no (unknown) (unknown) (no value) (units (unk nown) date) unknown) (unknown) (no (unknown) (unknown) #10 tabs (units (unkno wn) date) 06/07/22 [Rx unknown) Confirmed 10/07/22] (unknown) (no (unknown) (unknown) [id number] (units (unkno wn) date) unknown) (unknown) (no (unknown) (unknown) 10/07/22 (units (unkno wn) date) unknown) (unknown) (no (unknown) (unknown) 10/07/22] (units (unkn own) date) unknown) (unknown) (no (unknown) (unknown) 06/07/22 [Rx (units (u nknown) date) Confirmed unknown) 10/07/22] (unknown) (no (unknown) (unknown) 15:00 (units (unkno wn) date) unknown) (unknown) (no [...] own) date) unknown) (unknown) (no (unknown) (unknown) [place], [place] (units ( unknown) date) [address] unknown) (unknown) (no (unknown) (unknown) Anesthesia (units (unk nown) date) unknown) (unknown) (no (unknown) (unknown) Attending Dr: (units ( unknown) date) Sushant Bryant unknown) (unknown) (no (unknown) (unknown) BMI 28.7 (units (unkno wn) date) unknown) (unknown) (no (unknown) (unknown) BP 114/66 (units (unkn own) date) unknown) (unknown) (no (unknown) (unknown) Bilateral (units (unkn own) date) ovarian unknown) hypoechoic masses with peripheral vascularity.? Ectopic (unknown) (no (unknown) (unknown) Blood Pressure (units (unknown) date) Location Rt unknown) brachial (unknown) (no (unknown) (unknown) Chief Complaint (units (unknown) date) unknown) (unknown) (no (unknown) (unknown) Chief Complaint: (units (unknown) date) Preop visit unknown) (unknown) (no (unknown) (unknown) Chlamydia (units (unkn own) date) infection () unknown) (unknown) (no (unknown) (unknown) Confirmed (units (unkn own) date) 10/07/22] unknown) (unknown) (no (unknown) (unknown) Continued (units (unkn own) date) surveillance and unknown) correlation with serial serum beta-hCG measurements (unknown) (no (unknown) (unknown) : 2000 (units (unknown) date) Acct:[id number] unknown) (unknown) (no (unknown) (unknown) Dept at (units (unkno wn) date) . unknown) (unknown) (no (unknown) (unknown) Details: (units (unkno wn) date) unknown) (unknown) (no (unknown) (unknown) Documented By: (units (unknown) date) Sushant Bryant unknown) 10/07/22 1457 (unknown) (no (unknown) (unknown) Draft (units (unkno wn) date) unknown) (unknown) (no (unknown) (unknown) Endometriosis (units ( unknown) date) () unknown) (unknown) (no (unknown) (unknown) FINDINGS:? (units (unk nown) date) unknown) (unknown) (no (unknown) (unknown) [facility] unknown) (unknown) (no (unknown) (unknown) Ade is a (units (unk nown) date) 21-year-old unknown) nulligravida who returns today for evaluation with a 3? (unknown) (no (unknown) (unknown) Gynecology Visit (units (unknown) date) unknown) (unknown) (no (unknown) (unknown) HPI (units (unkno wn) date) unknown) (unknown) (no (unknown) (unknown) Heavy menstrual (units (unknown) date) period () unknown) (unknown) (no (unknown) (unknown) Height 5 ft 3 in (units (unknown) date) unknown) (unknown) (no (unknown) (unknown) Hx of (units (unkno wn) date) laparoscopy unknown) (04/07/22) (unknown) (no (unknown) (unknown) IMPRESSION:? (units (u nknown) date) unknown) (unknown) (no (unknown) (unknown) Intake Note: (units (u nknown) date) unknown) (unknown) (no (unknown) (unknown) Intake (units [...] (unknown) Medical History (units (unknown) date) (Updated 09/01/22 unknown) @ 07:57 by Sushant Bryant MD) (unknown) (no (unknown) (unknown) Medications (units (un known) date) unknown) (unknown) (no (unknown) (unknown) No convincing (units ( unknown) date) evidence of unknown) intrauterine . (unknown) (no (unknown) (unknown) Opioids - (units (unkn own) date) Morphine unknown) Analogues Allergy (Intermediate, Verified 10/07/22 14:59) (unknown) (no (unknown) (unknown) Other Menstrual (units (unknown) date) Period: Other unknown) (unknown) (no (unknown) (unknown) Ovarian cyst (units (u nknown) date) unknown) (unknown) (no (unknown) (unknown) Oxygen Delivery (units (unknown) date) Method room air unknown) (unknown) (no (unknown) (unknown) PFSH (units (unkno wn) date) unknown) (unknown) (no (unknown) (unknown) Painful (units (unkno wn) date) menstrual periods unknown) () (unknown) (no (unknown) (unknown) Patient: (units (unkno wn) date) Ade Vidales unknown) MR#: [id number] (unknown) (no (unknown) (unknown) Position Sitting (units (unknown) date) unknown) (unknown) (no (unknown) (unknown) Pt is here for a (units (unknown) date) pre-op unknown) (unknown) (no (unknown) (unknown) Pulse 60 (units (unkno wn) date) unknown) (unknown) (no (unknown) (unknown) Pulse Oximetry (units (unknown) date) (%) 99 unknown) (unknown) (no (unknown) (unknown) Pulse Source (units (u nknown) date) Monitor unknown) (unknown) (no (unknown) (unknown) Reason For [...] (unknown) Surgical History (units (unknown) date) (Updated 10/07/22 unknown) @ 08:13 by Mile De La Rosa RN) (unknown) (no (unknown) (unknown) TOA (units (unkno wn) date) (tubo-ovarian unknown) abscess) (-06/28/21) (unknown) (no (unknown) (unknown) Temp 98.5 F (units (un known) date) unknown) (unknown) (no (unknown) (unknown) Temp Source (units (un known) date) Temporal Artery unknown) Scan (unknown) (no (unknown) (unknown) This note may (units ( unknown) date) have been all or unknown) partially generated using voice recognition (unknown) (no (unknown) (unknown) Tobacco + (units (unkn own) date) Substance Use unknown) (unknown) (no (unknown) (unknown) Tobacco Status (units (unknown) date) unknown) (unknown) (no (unknown) (unknown) Uterine body is (units (unknown) date) normal in size.? unknown) Echogenic fluid in the uterine cavity may (unknown) (no (unknown) (unknown) Visit Reasons: (units (unknown) date) Pre-op unknown) (unknown) (no (unknown) (unknown) Vitals (units (unkno wn) date) unknown) (unknown) (no (unknown) (unknown) Vomiting (units (unkno wn) date) unknown) (unknown) (no (unknown) (unknown) Weight 162 lb (units ( unknown) date) unknown) (unknown) (no (unknown) (unknown) [Rx Confirmed (units ( unknown) date) 10/07/22] unknown) (unknown) (no (unknown) (unknown) alcohol intake: (units (unknown) date) current unknown) (unknown) (no (unknown) (unknown) although a (units (unk nown) date) unknown) (unknown) (no (unknown) (unknown) amoxicillin (units (un known) date) Adverse Reaction unknown) (Verified 10/07/22 15:00) (unknown) (no (unknown) (unknown) and (units (unkno wn) date) unknown) (unknown) (no (unknown) (unknown) blood products.? (units (unknown) date) There is no unknown) definite evidence of gestational sac.? There is a (unknown) (no (unknown) (unknown) but smaller 1.5 (units (unknown) date) cm hypoechoic unknown) area in the left ovary.? (unknown) (no (unknown) (unknown) cannot be (units (unkn own) date) strictly excluded unknown) for either these locations. (unknown) (no (unknown) (unknown) clindamycin HCl (units (unknown) date) 150 mg capsule unknown) 150 mg PO DAILY #30 caps 03/17/22 [Rx Confirmed (unknown) (no (unknown) (unknown) clinical (units (unkno wn) date) symptoms unknown) recommended. (unknown) (no (unknown) (unknown) corpus luteum or (units (unknown) date) hemorrhagic cyst unknown) could have a similar appearance.? There is a (unknown) (no (unknown) (unknown) doxycycline (units (un known) date) Adverse Reaction unknown) (Intermediate, Verified 10/07/22 14:59) (unknown) (no (unknown) (unknown) fluconazole 150 (units (unknown) date) mg tablet unknown) (Diflucan) 150 mg PO Q48H 2 doses #2 tabs 08/31/22 [Rx (unknown) (no (unknown) (unknown) have a bowel (units (u nknown) date) movement or unknown) empties her bladder.? Pelvic US performed 08/31/2022 (unknown) (no (unknown) (unknown) have occurred. (units [...] is sharp and (unknown) (no (unknown) (unknown) occurred due to [...] 04/07/22 [Rx Confirmed (unknown) (no (unknown) (unknown) peripheral (units (unk nown) date) vascularity.? unknown) This could potentially represent an ectopic (unknown) (no (unknown) (unknown) (units (unkn own) date) unknown) (unknown) (no (unknown) (unknown) rash (units (unkno wn) date) unknown) (unknown) (no (unknown) (unknown) read the note (units ( unknown) date) carefully and unknown) recognize, using context, where these substitutions (unknown) (no (unknown) (unknown) represent (units (unkn own) date) unknown) (unknown) (no (unknown) (unknown) she is been (units (un known) date) bleeding for the unknown) last 2 weeks and her pain has been worse during (unknown) (no (unknown) (unknown) shows: (units (unkno wn) date) unknown) (unknown) (no (unknown) (unknown) similar (units (unkno wn) date) unknown) (unknown) (no (unknown) (unknown) software. (units (unkn own) date) Although every unknown) effort is made to edit content, offset pressman errors (unknown) (no (unknown) (unknown) stabbing, and (units ( unknown) date) intermittent.? It unknown) does not seem to be related to her cycles but (unknown) (no (unknown) (unknown) that period of (units (unknown) date) time.? In unknown) addition she has significant pain when she strains to (unknown) (no (unknown) (unknown) thick-walled 2.7 (units (unknown) date) cm heterogeneous unknown) complex hypoechoic mass in the left ovary with (unknown) (no (unknown) (unknown) vomitt (units (unkno wn) date) unknown) Result panel 363 (unknown) (no (unknown) (unknown) (no value) (units (unk nown) date) unknown) (unknown) (no (unknown) (unknown) #10 tabs (units (unkno wn) date) 06/07/22 [Rx unknown) Confirmed 10/07/22] (unknown) (no (unknown) (unknown) (Diffuse, mild) (units (unknown) date) unknown) (unknown) (no (unknown) (unknown) [id number] (units (unkno wn) date) unknown) (unknown) (no (unknown) (unknown) 10/07/22 (units (unkno wn) date) unknown) (unknown) (no (unknown) (unknown) 10/07/22] (units (unkn own) date) unknown) (unknown) (no (unknown) (unknown) 06/07/22 [Rx (units (u nknown) date) Confirmed unknown) 10/07/22] (unknown) (no (unknown) (unknown) 15:00 (units (unkno wn) date) unknown) (unknown) (no [...] own) date) unknown) (unknown) (no (unknown) (unknown) [place], [place] (units ( unknown) date) [id number] unknown) (unknown) (no (unknown) (unknown) Anesthesia (units (unk nown) date) unknown) (unknown) (no (unknown) (unknown) Appearance: (units (un known) date) grossly normal unknown) (unknown) (no (unknown) (unknown) Attending Dr: (units ( unknown) date) Sushant Bryant unknown) (unknown) (no (unknown) (unknown) Attitude: (units (unkn own) date) cooperative unknown) (unknown) (no (unknown) (unknown) BMI 28.7 (units (unkno wn) date) unknown) (unknown) (no (unknown) (unknown) BP 114/66 (units (unkn own) date) unknown) (unknown) (no (unknown) (unknown) Because of the (units (unknown) date) patient's unknown) persistent pain and the impact it is having on her (unknown) (no (unknown) (unknown) Bilateral (units (unkn own) date) ovarian unknown) hypoechoic masses with peripheral vascularity.? Ectopic (unknown) (no (unknown) [...] (unknown) (unknown) Chief Complaint: (units (unknown) date) Preop visit unknown) (unknown) (no (unknown) (unknown) Chlamydia (units (unkn own) date) infection () unknown) (unknown) (no (unknown) (unknown) Confirmed (units (unkn own) date) 10/07/22] unknown) (unknown) (no (unknown) (unknown) Conjunctivae: (units ( unknown) date) conjunctivae unknown) normal (unknown) (no (unknown) (unknown) Const (units (unkno wn) date) unknown) (unknown) (no (unknown) (unknown) Continued (units (unkn own) date) surveillance and unknown) correlation with serial serum beta-hCG measurements (unknown) (no (unknown) (unknown) : 2000 (units (unknown) date) Acct:[id number] unknown) (unknown) (no (unknown) (unknown) Dept at (units (unkno wn) date) . unknown) (unknown) (no (unknown) (unknown) Details: (units (unkno wn) date) unknown) (unknown) (no (unknown) (unknown) Documented By: (units (unknown) date) Sushant Bryant unknownFlip MOORE 10/07/22 1457 (unknown) (no (unknown) (unknown) Draft (units (unkno [...] acute distress (unknown) (no (unknown) (unknown) General: (units (unkno wn) date) deferred unknown) (unknown) (no (unknown) (unknown) Ade is a (units (unk nown) date) 21-year-old unknown) nulligravida who returns today with a 4?month history of (unknown) (no (unknown) (unknown) Gynecology Visit [...] (unknown) date) unknown) (unknown) (no (unknown) (unknown) Hx of (units (unkno wn) date) laparoscopy unknown) (04/07/22) (unknown) (no (unknown) (unknown) IMPRESSION:? (units (u nknown) date) unknown) (unknown) (no (unknown) (unknown) Intake Note: (units (u nknown) date) unknown) (unknown) (no (unknown) (unknown) Intake (units [...] (unknown) Medical History (units (unknown) date) (Updated 09/01/22 unknown) @ 07:57 by Sushant Bryant MD) (unknown) (no (unknown) [...] visual inspection unknown) (unknown) (no (unknown) (unknown) No convincing (units ( unknown) date) evidence of unknown) intrauterine . (unknown) (no (unknown) (unknown) Nutritional (units (un known) date) Appearance: unknown) average body habitus (unknown) (no (unknown) (unknown) Opioids - (units (unkn own) date) Morphine unknown) Analogues Allergy (Intermediate, Verified 10/07/22 14:59) (unknown) (no (unknown) (unknown) Orientation: (units (u nknown) date) alert and unknown) oriented x3 (unknown) (no (unknown) (unknown) Other Menstrual (units (unknown) date) Period: Other unknown) (unknown) (no (unknown) (unknown) Other: (units (unkno wn) date) unknown) (unknown) (no (unknown) (unknown) Ovarian cyst (units (u nknown) date) unknown) (unknown) (no (unknown) (unknown) Oxygen Delivery (units (unknown) date) Method room air unknown) (unknown) (no (unknown) (unknown) PFSH (units [...] date) unknown) (unknown) (no (unknown) (unknown) Pt is here for a (units (unknown) date) pre-op unknown) (unknown) (no (unknown) (unknown) Pulse 60 (units (unkno wn) date) unknown) (unknown) (no (unknown) (unknown) Pulse Oximetry (units (unknown) date) (%) 99 unknown) (unknown) (no (unknown) (unknown) Pulse Source (units (u nknown) date) Monitor unknown) (unknown) (no (unknown) (unknown) ROS Narrative (units ( unknown) date) unknown) (unknown) (no (unknown) (unknown) ROS Narrative: (units (unknown) date) unknown) (unknown) (no (unknown) (unknown) ROS (units (unkno wn) date) unknown) (unknown) (no (unknown) (unknown) Reason For Visit (units (unknown) date) unknown) (unknown) (no (unknown) (unknown) Recto-Vaginal: (units (unknown) date) no cul-de-sac unknown) fullness, cul-de-sac tenderness (Mild) and no (unknown) (no (unknown) (unknown) Resp (units (unkno [...] (unknown) Surgical History (units (unknown) date) (Updated 10/07/22 unknown) @ 08:13 by Mile De La Rosa RN) (unknown) (no (unknown) (unknown) TOA (units (unkno wn) date) (tubo-ovarian unknown) abscess) (-06/28/21) (unknown) (no (unknown) (unknown) Temp 98.5 F (units (un known) date) unknown) (unknown) (no (unknown) (unknown) Temp Source (units (un known) date) Temporal Artery unknown) Scan (unknown) (no (unknown) (unknown) This note may [...] may (unknown) (no (unknown) (unknown) Visit Reasons: (units (unknown) date) Pre-op unknown) (unknown) (no (unknown) (unknown) Vitals (units (unkno wn) date) unknown) (unknown) (no (unknown) (unknown) Vomiting (units (unkno wn) date) unknown) (unknown) (no (unknown) (unknown) Weight 162 lb (units ( unknown) date) unknown) (unknown) (no (unknown) (unknown) [Rx Confirmed (units ( unknown) date) 10/07/22] unknown) (unknown) (no (unknown) (unknown) ability to work (units (unknown) date) and normal daily unknown) activities, she has decided that she would like (unknown) (no (unknown) (unknown) alcohol intake: (units (unknown) date) current unknown) (unknown) (no (unknown) (unknown) although a (units (unk nown) date) unknown) (unknown) (no (unknown) (unknown) amoxicillin (units (un known) date) Adverse Reaction unknown) (Verified 10/07/22 15:00) (unknown) (no (unknown) (unknown) and (units (unkno wn) date) unknown) (unknown) (no (unknown) (unknown) bleeding for the (units (unknown) date) last 2 weeks and unknown) her pain has been worse during that period of (unknown) (no (unknown) (unknown) blood products.? (units (unknown) date) There is no unknown) definite evidence of gestational sac.? There is a (unknown) (no (unknown) (unknown) but smaller 1.5 (units (unknown) date) cm hypoechoic unknown) area in the left ovary.? (unknown) (no (unknown) (unknown) cannot be (units (unkn own) date) strictly excluded unknown) for either these locations. (unknown) (no (unknown) (unknown) clindamycin HCl (units [...] date) nodularlity unknown) (unknown) (no (unknown) (unknown) cystectomy or (units ( unknown) date) possible left unknown) oophorectomy. At the same time she would like to (unknown) (no (unknown) (unknown) discharge (units (unkn own) date) (Raegan; unknown) confirmed by wet prep) and no lesions (unknown) (no (unknown) (unknown) doxycycline (units (un known) date) Adverse Reaction unknown) (Intermediate, Verified 10/07/22 14:59) (unknown) (no (unknown) (unknown) fluconazole 150 (units (unknown) date) mg tablet unknown) (Diflucan) 150 mg PO Q48H 2 doses #2 tabs 08/31/22 [Rx (unknown) (no (unknown) (unknown) have a Mirena (units ( unknown) date) IUD inserted to unknown) address her persistent menometrorrhagia. She (unknown) (no (unknown) (unknown) have occurred. (units [...] #20 tabs 04/08/22 (unknown) (no (unknown) (unknown) if the tube is (units (unknown) date) severely affected unknown) by adhesive disease and possible left ovarian (unknown) (no (unknown) (unknown) intermittent.? (units (unknown) date) It does not seem unknown) to be related to her cycles but she is been (unknown) (no (unknown) (unknown) ketorolac 10 mg (units (unknown) date) tablet 10 mg PO unknown) Q6H PRN pain #14 tabs 06/07/22 [Rx Confirmed (unknown) (no (unknown) (unknown) left, No (units (unkno wn) date) cul-de-sac unknown) fullness, cul-de-sac tenderness (Mild) and No cul-de-sac (unknown) (no (unknown) (unknown) may occur. (units (unk nown) date) Occasional unknown) wrong-word or 'sound-alike' substitutions may have (unknown) (no (unknown) (unknown) movement or (units (un known) date) empties her unknown) bladder.? Pelvic US performed 08/31/2022 shows: (unknown) (no (unknown) (unknown) no lesions and [...] 04/07/22 [Rx Confirmed (unknown) (no (unknown) (unknown) peripheral (units (unk nown) date) vascularity.? unknown) This could potentially represent an ectopic (unknown) (no (unknown) (unknown) persistent left (units (unknown) date) lower quadrant unknown) pain which is sharp and stabbing, and (unknown) (no (unknown) (unknown) (units (unkn own) date) unknown) (unknown) (no (unknown) (unknown) presents today (units (unknown) date) for preoperative unknown) evaluation, counseling, and consent. (unknown) (no (unknown) (unknown) rash (units (unkno wn) date) unknown) (unknown) (no (unknown) (unknown) read the note (units ( unknown) date) carefully and unknown) recognize, using context, where these substitutions (unknown) (no (unknown) (unknown) represent (units (unkn own) date) unknown) (unknown) (no (unknown) (unknown) sentences (units (unkn own) date) unknown) (unknown) (no (unknown) (unknown) similar (units (unkno wn) date) unknown) (unknown) (no (unknown) (unknown) software. (units (unkn own) date) Although every unknown) effort is made to edit content, offset pressman errors (unknown) (no (unknown) (unknown) thick-walled 2.7 (units (unknown) date) cm heterogeneous unknown) complex hypoechoic mass in the left ovary with (unknown) (no (unknown) (unknown) time.? In (units (unkn own) date) addition she has unknown) significant pain when she strains to have a bowel (unknown) (no (unknown) (unknown) to proceed with (units (unknown) date) a 2nd laparoscopy unknown) with plans to remove the left fallopian tube (unknown) (no (unknown) (unknown) urethra and no (units (unknown) date) lesions unknown) (unknown) (no (unknown) (unknown) uterine shape (units ( unknown) date) normal, No unknown) tender, no cervical motion tenderness and tender (unknown) (no (unknown) (unknown) vomitt (units (unkno wn) date) unknown) Result panel 364 (unknown) (no (unknown) (unknown) (no value) (units (unk nown) date) unknown) (unknown) (no (unknown) (unknown) #10 tabs 06/07/22 (units (unknown) date) [Rx Confirmed unknown) 10/07/22] (unknown) (no (unknown) (unknown) (1) (units (unkno wn) date) Menometrorrhagia: unknown) (unknown) (no (unknown) (unknown) (Diffuse, mild) (units (unknown) date) unknown) (unknown) (no (unknown) (unknown) [id number] (units (unkno wn) date) unknown) (unknown) (no (unknown) (unknown) 10/07/22 1748 (units ( unknown) date) unknown) (unknown) (no (unknown) (unknown) 10/07/22 (units (unkno wn) date) unknown) (unknown) (no (unknown) (unknown) 10/07/22] (units (unkn own) date) unknown) (unknown) (no (unknown) (unknown) 11/22/22 [Rx (units (u nknown) date) Confirmed 10/07/22] unknown) (unknown) (no (unknown) (unknown) 15:00 (units (unkno wn) date) unknown) (unknown) (no [...] own) date) unknown) (unknown) (no (unknown) (unknown) [place] [id number] (unit s (unknown) date) unknown) (unknown) (no [...] unknown) bilaterally (unknown) (no (unknown) (unknown) BMI 28.7 (units (unkno wn) date) unknown) (unknown) (no (unknown) (unknown) BP 114/66 (units (unkn own) date) unknown) (unknown) (no (unknown) (unknown) Because of the (units (unknown) date) patient's persistent unknown) pain and the impact it is having on her (unknown) (no (unknown) (unknown) Bilateral ovarian (units [...] Rt brachial unknown) (unknown) (no (unknown) (unknown) Cardio (units (unkno wn) date) unknown) (unknown) (no (unknown) (unknown) Chief Complaint (units (unknown) date) unknown) (unknown) (no (unknown) (unknown) Chief Complaint: (units (unknown) date) Preop visit unknown) (unknown) (no (unknown) (unknown) Chlamydia infection (unit s (unknown) date) () unknown) (unknown) (no (unknown) (unknown) Confirmed 10/07/22] (unit s (unknown) date) unknown) (unknown) (no [...] (unknown) (unknown) : 2000 (units (unknown) date) Acct:[id number] unknown) (unknown) (no (unknown) (unknown) Dept at (units (unkno wn) date) . unknown) (unknown) (no (unknown) (unknown) Details: (units (unkno wn) date) unknown) (unknown) (no (unknown) (unknown) Documented By: (units (unknown) date) Sushant Bryant MD unknown) 10/07/22 1457 (unknown) (no (unknown) (unknown) Documenting (units (un [...] date) 21-year-old unknown) nulligravida who returns today with a 4?month history of (unknown) (no (unknown) (unknown) Gynecology Visit [...] (unknown) date) unknown) (unknown) (no (unknown) (unknown) Hx of laparoscopy (units (unknown) date) (04/07/22) unknown) (unknown) (no (unknown) (unknown) IMPRESSION:? (units (u nknown) date) unknown) (unknown) (no (unknown) (unknown) Inspection: normal (units (unknown) date) to inspection and unknown) scar (Prior laparoscopy) (unknown) (no (unknown) (unknown) Intake Note: (units (u nknown) date) unknown) (unknown) (no (unknown) (unknown) Intake (units [...] (unknown) Medical History (units (unknown) date) (Updated 10/07/22 @ unknown) 17:43 by Sushant Bryant MD) (unknown) (no (unknown) [...] date) inspection unknown) (unknown) (no (unknown) (unknown) No convincing (units ( unknown) date) evidence of unknown) intrauterine . (unknown) (no (unknown) (unknown) Nutritional (units (un known) date) Appearance: average unknown) body habitus (unknown) (no (unknown) (unknown) Obtaining and/or (units (unknown) date) reviewing separately unknown) obtained history: 5 (unknown) (no (unknown) (unknown) Opioids - Morphine (units (unknown) date) Analogues Allergy unknown) (Intermediate, Verified 10/07/22 14:59) (unknown) (no (unknown) (unknown) Orientation: alert (units (unknown) date) and oriented x3 unknown) (unknown) (no (unknown) (unknown) Other Menstrual (units (unknown) date) Period: Other unknown) (unknown) (no (unknown) (unknown) Other: (units (unkno wn) date) unknown) (unknown) (no (unknown) (unknown) Ovarian cyst (units (u nknown) date) unknown) (unknown) (no (unknown) (unknown) Oxygen Delivery (units (unknown) date) Method room air unknown) (unknown) (no (unknown) (unknown) PFSH (units (unkno wn) date) unknown) (unknown) (no (unknown) (unknown) Painful menstrual (units (unknown) date) periods (-2020) unknown) (unknown) (no (unknown) (unknown) Palpation: soft, no (unit s (unknown) date) hepatosplenomegaly unknown) and tender (LLQ) (unknown) (no (unknown) (unknown) Patient counseled (units (unknown) date) regarding unknown) alternatives, risks, benefits, and potential (unknown) (no (unknown) (unknown) Patient understands (unit s (unknown) date) that if her left unknown) fallopian tube is removed, she will be (unknown) (no (unknown) (unknown) Patient: (units (unkno [...] date) unknown) (unknown) (no (unknown) (unknown) Pt is here for a (units (unknown) date) pre-op unknown) (unknown) (no (unknown) (unknown) Pulse 60 (units (unkno wn) date) unknown) (unknown) (no (unknown) (unknown) Pulse Oximetry (%) (units (unknown) date) 99 unknown) (unknown) (no (unknown) (unknown) Pulse Source (units (u nknown) date) Monitor unknown) (unknown) (no (unknown) (unknown) ROS Narrative [...] (Mild) and no (unknown) (no (unknown) (unknown) Resp (units (unkno [...] (unknown) Surgical History (units (unknown) date) (Updated 10/07/22 @ unknown) 08:13 by Mile De La Rosa RN) (unknown) (no (unknown) (unknown) TOA (tubo-ovarian (units (unknown) date) abscess) (-06/28/21) unknown) (unknown) (no (unknown) (unknown) Temp 98.5 F (units (un known) date) unknown) (unknown) (no (unknown) (unknown) Temp Source (units (un known) date) Temporal Artery Scan unknown) (unknown) (no (unknown) (unknown) This note may have (units (unknown) date) been all or unknown) partially generated using voice recognition (unknown) (no (unknown) (unknown) Thought Content: (units (unknown) date) normal unknown) (unknown) (no (unknown) (unknown) Thought Process: (units (unknown) date) normal unknown) (unknown) (no (unknown) (unknown) Thyroid: thyroid (units (unknown) date) normal unknown) (unknown) (no [...] may (unknown) (no (unknown) (unknown) Visit Reasons: (units (unknown) date) Pre-op unknown) (unknown) (no (unknown) (unknown) Vitals (units (unkno wn) date) unknown) (unknown) (no (unknown) (unknown) Vomiting (units (unkno wn) date) unknown) (unknown) (no (unknown) (unknown) Weight 162 lb (units ( unknown) date) unknown) (unknown) (no (unknown) (unknown) [Rx Confirmed (units ( unknown) date) 10/07/22] unknown) (unknown) (no (unknown) (unknown) ability to work and (units (unknown) date) normal daily unknown) activities, she has decided that she would like (unknown) (no (unknown) (unknown) alcohol intake: (units (unknown) date) current unknown) (unknown) (no (unknown) (unknown) although a (units (unk nown) date) unknown) (unknown) (no (unknown) (unknown) amoxicillin Adverse (unit s (unknown) date) Reaction (Verified unknown) 10/07/22 15:00) (unknown) (no (unknown) (unknown) and (units (unkno wn) date) unknown) (unknown) (no (unknown) (unknown) ay occur. (units (unkn own) date) Occasional unknown) wrong-word or 'sound-alike' substitutions may have (unknown) (no (unknown) (unknown) bleeding for the (units (unknown) date) last 2 weeks and her unknown) pain has been worse during that period of (unknown) (no (unknown) (unknown) blood products.? (units (unknown) date) There is no definite unknown) evidence of gestational sac.? There is a (unknown) (no (unknown) (unknown) but smaller 1.5 cm (units (unknown) date) hypoechoic area in unknown) the left ovary.? (unknown) (no (unknown) (unknown) cannot be strictly (units (unknown) date) excluded for either unknown) these locations. (unknown) (no (unknown) (unknown) clindamycin HCl 150 (unit s (unknown) date) mg capsule 150 mg PO unknown) DAILY #30 caps 03/17/22 [Rx Confirmed (unknown) (no (unknown) (unknown) clinical symptoms (units (unknown) date) recommended. unknown) (unknown) (no (unknown) (unknown) complications (units ( unknown) date) associated with unknown) laparoscopic left salpingectomy, possible (unknown) (no (unknown) (unknown) corpus luteum or (units (unknown) date) hemorrhagic cyst unknown) could have a similar appearance.? There is a (unknown) (no (unknown) (unknown) cul-de-sac (units (unk nown) date) nodularlity unknown) (unknown) (no (unknown) (unknown) cystectomy or (units ( unknown) date) possible left unknown) oophorectomy. At the same time she would like to (unknown) (no (unknown) (unknown) cystectomy will be (units (unknown) date) performed if unknown) indicated and removal of the left ovary would be (unknown) (no (unknown) (unknown) discharge (Raegan; (unit s (unknown) date) confirmed by wet unknown) prep) and no lesions (unknown) (no (unknown) (unknown) doxycycline Adverse (unit s (unknown) date) Reaction unknown) (Intermediate, Verified 10/07/22 14:59) (unknown) (no (unknown) (unknown) fluconazole 150 mg (units (unknown) date) tablet (Diflucan) unknown) 150 mg PO Q48H 2 doses #2 tabs 08/31/22 [Rx (unknown) (no (unknown) (unknown) have a Mirena IUD (units (unknown) date) inserted to address unknown) her persistent menometrorrhagia. She (unknown) (no (unknown) (unknown) have occurred. If (units (unknown) date) there are any unknown) questions, please contact the Medical Records (unknown) (no (unknown) (unknown) her pain, she would (unit s (unknown) date) want to removed. As unknown) far as the left ovary is concerned, (unknown) (no (unknown) (unknown) household members: (units (unknown) date) friend(s) unknown) (unknown) (no (unknown) (unknown) hydrocodone 5 (units ( unknown) date) mg-acetaminophen 325 unknown) mg tablet 1 tab PO Q4-6H PRN pain #10 tabs (unknown) (no (unknown) (unknown) hydromorphone 4 mg (units (unknown) date) tablet (Dilaudid) 4 unknown) mg PO Q4-6H PRN pain #20 tabs 04/08/22 (unknown) (no (unknown) (unknown) if the tube is (units (unknown) date) severely affected by unknown) adhesive disease and possible left ovarian (unknown) (no (unknown) (unknown) intermittent.? It (units (unknown) date) does not seem to be unknown) related to her cycles but she is been (unknown) (no (unknown) (unknown) ketorolac 10 mg (units (unknown) date) tablet 10 mg PO Q6H unknown) PRN pain #14 tabs 06/07/22 [Rx Confirmed (unknown) (no (unknown) (unknown) laparoscopic left (units (unknown) date) oophorectomy, and unknown) placement of a Mirena intrauterine device. (unknown) (no (unknown) (unknown) left, No cul-de-sac (unit s (unknown) date) fullness, cul-de-sac unknown) tenderness (Mild) and No cul-de-sac (unknown) (no (unknown) (unknown) movement or empties (unit s (unknown) date) her bladder.? Pelvic unknown) US performed 08/31/2022 shows: (unknown) (no (unknown) (unknown) no lesions and [...] 04/07/22 [Rx Confirmed (unknown) (no (unknown) (unknown) performed only as a (unit s (unknown) date) last resort. With unknown) full understanding of the above, a (unknown) (no (unknown) (unknown) peripheral (units (unk nown) date) vascularity.? This unknown) could potentially represent an ectopic (unknown) (no (unknown) (unknown) persistent left (units (unknown) date) lower quadrant pain unknown) which is sharp and stabbing, and (unknown) (no (unknown) (unknown) point and if (units (u nknown) date) removal of the unknown) fallopian tube will reasonably improved/eliminate (unknown) (no (unknown) (unknown) possible, her pain (units (unknown) date) is exceedingly unknown) disruptive to her life and well-being at this (unknown) (no (unknown) (unknown) (units (unkn own) date) unknown) (unknown) (no (unknown) (unknown) presents today for (units (unknown) date) preoperative unknown) evaluation, counseling, and consent. (unknown) (no (unknown) (unknown) rash (units (unkno wn) date) unknown) (unknown) (no (unknown) (unknown) read the note (units ( unknown) date) carefully and unknown) recognize, using context, where these substitutions (unknown) (no (unknown) (unknown) represent (units (unkn own) date) unknown) (unknown) (no (unknown) (unknown) reproductive (units (u nknown) date) technology. While unknown) she would prefer to retain her fertility if (unknown) (no (unknown) (unknown) sentences (units (unkn own) date) unknown) (unknown) (no (unknown) (unknown) similar (units (unkno wn) date) unknown) (unknown) (no (unknown) (unknown) software. Although (units (unknown) date) every effort is made unknown) to edit content, offset pressman errors m (unknown) (no (unknown) (unknown) thick-walled 2.7 cm (units (unknown) date) heterogeneous unknown) complex hypoechoic mass in the left ovary with (unknown) (no (unknown) (unknown) time.? In addition (units (unknown) date) she has significant unknown) pain when she strains to have a bowel (unknown) (no (unknown) (unknown) to proceed with a (units (unknown) date) 2nd laparoscopy with unknown) plans to remove the left fallopian tube (unknown) (no (unknown) (unknown) unable to bear (units (unknown) date) children in the unknown) future without the benefit of assisted (unknown) (no (unknown) (unknown) urethra and no (units (unknown) date) lesions unknown) (unknown) (no (unknown) (unknown) uterine shape (units ( unknown) date) normal, No tender, unknown) no cervical motion tenderness and tender (unknown) (no (unknown) (unknown) vomitt (units (unkno wn) date) unknown) (unknown) (no (unknown) (unknown) written consent was (unit s (unknown) date) executed, signed, unknown) and witnessed this date. Result panel 365 (unknown) (no (unknown) (unknown) (no value) (units (unk nown) date) unknown) (unknown) (no (unknown) (unknown) (Diflucan) (units (unk nown) date) unknown) (unknown) (no (unknown) (unknown) (Dilaudid) (units (unk nown) date) unknown) (unknown) (no (unknown) (unknown) [id number] (units (unkno wn) date) unknown) (unknown) (no (unknown) (unknown) 02:29 (units (unkno wn) date) unknown) (unknown) (no (unknown) (unknown) 10/13/22 (units (unkno wn) date) unknown) (unknown) (no (unknown) (unknown) 1 tab PO Q4-6H (units (unknown) date) PRN (Reason: unknown) pain) Qty: 10 0RF (unknown) (no (unknown) (unknown) 10 mg PO Q6H PRN (units (unknown) date) (Reason: pain) unknown) Qty: 14 0RF (unknown) (no (unknown) (unknown) 150 mg PO DAILY (units (unknown) date) Qty: 30 0RF unknown) (unknown) (no (unknown) (unknown) 150 mg PO Q48H (units (unknown) date) Qty: 2 4RF unknown) (unknown) (no (unknown) (unknown) 4 mg [...] nown) date) unknown) (unknown) (no (unknown) (unknown) Bedside Urine [...] (unknown) (unknown) Blood Pressure (units (unknown) date) 120/62 10/13/22 unknown) 02:29 (unknown) (no (unknown) (unknown) Blood Pressure (units (unknown) date) 120/62 unknown) (unknown) (no (unknown) (unknown) Chief complaint: (units (unknown) date) Abdominal Pain unknown) (unknown) (no (unknown) (unknown) Chlamydia (units (unkn own) date) infection () unknown) (unknown) (no (unknown) (unknown) Course (units (unkno wn) date) unknown) (unknown) (no (unknown) (unknown) : 2000 (units (unknown) date) Acct:[id number] unknown) (unknown) (no (unknown) (unknown) Date of Service: (units (unknown) date) 10/13/22 unknown) (unknown) (no (unknown) (unknown) Departure (units (unkn own) date) unknown) (unknown) (no (unknown) (unknown) Discharge Plan (units (unknown) date) unknown) (unknown) (no (unknown) (unknown) ER Physician: (units ( unknown) date) Asher Perez unknown) [place].OTnavir (unknown) (no (unknown) (unknown) Emergency Report (units (unknown) date) unknown) (unknown) (no (unknown) (unknown) Endometriosis (units ( unknown) date) () unknown) (unknown) (no (unknown) (unknown) Esterase (units (unkno wn) date) unknown) (unknown) (no (unknown) (unknown) Exam (units (unkno wn) date) unknown) (unknown) (no (unknown) (unknown) General (units (unkno wn) date) unknown) (unknown) (no (unknown) (unknown) HPI - General (units ( unknown) date) Adult unknown) (unknown) (no (unknown) (unknown) Heavy menstrual (units (unknown) date) period () unknown) (unknown) (no (unknown) (unknown) Hx of (units (unkno wn) date) laparoscopy unknown) (04/07/22) (unknown) (no (unknown) (unknown) Initial Vital (units ( unknown) date) Signs unknown) (unknown) (no (unknown) (unknown) Initial Vital (units ( unknown) date) Signs: unknown) (unknown) (no (unknown) (unknown) Irregular (units (unkn own) date) menstrual cycle unknown) () (unknown) (no (unknown) (unknown) [facility] (units (unknown) date) [address] unknown) [place] [id number] (unknown) (no (unknown) (unknown) Joel Abrams (units (unknown) date) ELEUTERIO dasilva [Primary unknown) Care Provider] (unknown) (no (unknown) (unknown) Lab Data (units (unkno wn) date) unknown) (unknown) (no (unknown) (unknown) Labs: (units (unkno wn) date) unknown) (unknown) (no (unknown) (unknown) Lymphangioma (units (u nknown) date) unknown) (unknown) (no (unknown) (unknown) Medical Decision (units (unknown) date) Making unknown) (unknown) (no (unknown) (unknown) Medical History (units (unknown) date) (Updated 10/07/22 unknown) @ 17:43 by Sushant Bryant MD) (unknown) (no (unknown) (unknown) Medication (units (unk nown) date) Instructions unknown) Recorded (unknown) (no (unknown) (unknown) Mode of arrival: (units (unknown) date) Ambulatory unknown) (unknown) (no (unknown) (unknown) No Action (units (unkn own) date) unknown) (unknown) (no (unknown) (unknown) Opioids - (units (unkn own) date) Morphine unknown) Analogues Allergy Intermediate rash Verified 10/07/22 14:59 (unknown) (no (unknown) (unknown) Ovarian cyst (units (u nknown) date) unknown) (unknown) (no (unknown) (unknown) Oxygen Delivery (units (unknown) date) Method Room Air unknown) 10/13/22 02:29 (unknown) (no (unknown) (unknown) Oxygen Delivery (units (unknown) date) Method Room Air unknown) (unknown) (no (unknown) (unknown) Painful (units (unkno wn) date) menstrual periods unknown) () (unknown) (no (unknown) (unknown) Patient History (units (unknown) date) unknown) (unknown) (no (unknown) (unknown) Patient: (units (unkno wn) date) Ade Vidales unknown) MR#: [id number] (unknown) (no (unknown) (unknown) Point of care (units ( unknown) date) testing: unknown) (unknown) (no (unknown) (unknown) Prescriptions: (units (unknown) date) unknown) (unknown) (no (unknown) (unknown) Previous Rx's (units ( unknown) date) unknown) (unknown) (no (unknown) (unknown) Pulse Oximetry (units (unknown) date) 98 10/13/22 02:29 unknown) (unknown) (no (unknown) (unknown) Pulse Oximetry (units (unknown) date) 98 unknown) (unknown) (no (unknown) (unknown) Pulse Rate 60 (units ( unknown) date) 10/13/22 02:29 unknown) (unknown) (no (unknown) (unknown) Pulse Rate 60 (units ( unknown) date) unknown) (unknown) (no (unknown) (unknown) Referrals: (units (unk nown) date) unknown) (unknown) (no (unknown) (unknown) Related Data (units (u nknown) date) unknown) (unknown) (no (unknown) (unknown) Repeat second (units ( unknown) date) dose 48 hrs after unknown) first dose. (unknown) (no (unknown) (unknown) Respiratory Rate (units (unknown) date) 16 10/13/22 02:29 unknown) (unknown) (no (unknown) (unknown) Respiratory Rate (units (unknown) date) 16 unknown) (unknown) (no (unknown) (unknown) Rx Instructions: (units (unknown) date) unknown) (unknown) (no (unknown) [...] Kyle Bess MD) (unknown) (no (unknown) (unknown) Source: patient (units (unknown) date) and family unknown) (unknown) (no (unknown) (unknown) Stated (units (unkno wn) date) complaint: ABD unknown) PAIN (unknown) (no (unknown) (unknown) Substance Use (units ( unknown) date) Type: does not unknown) use (unknown) (no (unknown) (unknown) Surgical History (units (unknown) date) (Updated 10/07/22 unknown) @ 08:13 by Mile De La Rosa RN) (unknown) (no (unknown) (unknown) TOA (units (unkno wn) date) (tubo-ovarian unknown) abscess) (-06/28/21) (unknown) (no (unknown) (unknown) Temperature 97.7 (units (unknown) date) F 10/13/22 02:29 unknown) (unknown) (no (unknown) (unknown) Temperature 97.7 (units (unknown) date) F unknown) (unknown) (no (unknown) (unknown) Time Seen by (units (u nknown) date) Provider: unknown) 10/13/22 02:27 (unknown) (no (unknown) (unknown) Urine Dip (units (unkn own) date) unknown) (unknown) (no (unknown) (unknown) Urine Specific (units (unknown) date) [place] 1.020 unknown) (unknown) (no (unknown) (unknown) Vital Signs [...] date) current unknown) (unknown) (no (unknown) (unknown) amoxicillin (units (un known) date) AdvReac Vomiting unknown) Verified 10/07/22 15:00 (unknown) (no (unknown) (unknown) clindamycin HCl (units (unknown) date) 150 mg capsule unknown) 150 mg PO DAILY #30 caps 03/17/22 (unknown) (no (unknown) (unknown) clindamycin HCl (units (unknown) date) 150 mg capsule unknown) (unknown) (no (unknown) (unknown) doxycycline (units (un known) date) AdvReac unknown) Intermediate vomitt Verified 10/07/22 14:59 (unknown) (no (unknown) (unknown) fluconazole 150 (units (unknown) date) mg tablet 150 mg unknown) PO Q48H 2 doses #2 tabs 08/31/22 (unknown) (no (unknown) (unknown) fluconazole (units (un known) date) [Diflucan] 150 mg unknown) tablet (unknown) (no (unknown) (unknown) household (units (unkn [...] ( unknown) date) vaping unknown) Result panel 366 (unknown) (no (unknown) (unknown) (no value) (units (unk nown) date) unknown) (unknown) (no (unknown) (unknown) <Electronically (units (unknown) date) signed by Asher Perez D.O.> (unknown) (no (unknown) (unknown) (Diflucan) (units (unk nown) date) unknown) (unknown) (no (unknown) (unknown) (Dilaudid) (units (unk nown) date) unknown) (unknown) (no (unknown) (unknown) [id number] (units (unkno wn) date) unknown) (unknown) (no (unknown) (unknown) 02:29 (units (unkno wn) date) unknown) (unknown) (no (unknown) (unknown) 10/13/22 0331 (units ( unknown) date) unknown) (unknown) (no (unknown) (unknown) 10/13/22 (units (unkno wn) date) unknown) (unknown) (no (unknown) (unknown) 1 tab PO Q4-6H PRN (units (unknown) date) (Reason: pain) Qty: unknown) 10 0RF (unknown) (no (unknown) (unknown) 10 mg PO Q6H PRN (units (unknown) date) (Reason: pain) Qty: unknown) 14 0RF (unknown) (no (unknown) (unknown) 150 mg PO DAILY (units (unknown) date) Qty: 30 0RF unknown) (unknown) (no (unknown) (unknown) 150 mg PO Q48H (units (unknown) date) Qty: 2 4RF unknown) (unknown) (no (unknown) (unknown) 4 mg PO Q4-6H PRN (units (unknown) date) (Reason: pain) Qty: unknown) 20 0RF (unknown) (no (unknown) (unknown) 4 mg PO TID-QID (units (unknown) date) PRN (Reason: nausea unknown) and vomiting) Qty: 10 0RF (unknown) (no (unknown) (unknown) 5 mg PO Q4H PRN (units (unknown) date) (Reason: pain) Qty: unknown) 20 0RF (unknown) (no (unknown) (unknown) Abdominal pain (units (unknown) date) unknown) (unknown) (no (unknown) (unknown) Acne (-2016) (units (u nknown) date) unknown) (unknown) (no (unknown) (unknown) Activity (units (unkno wn) date) Restrictions/Additi unknown) onal Instructions: (unknown) (no (unknown) (unknown) Age/Sex: 21 / F (units (unknown) date) unknown) (unknown) (no (unknown) (unknown) Alcohol type: wine (units (unknown) date) unknown) (unknown) (no (unknown) (unknown) Allergies (units (unkn own) date) unknown) (unknown) (no (unknown) (unknown) Allergy/AdvReac (units (unknown) date) Type Severity unknown) Reaction Status Date / Time (unknown) (no (unknown) (unknown) Anesthesia (units (unk nown) date) unknown) (unknown) (no (unknown) (unknown) Back/Spine/Pelvis (units (unknown) date) unknown) (unknown) (no (unknown) (unknown) Back: No CVA (units (u nknown) date) tenderness unknown) (unknown) (no (unknown) (unknown) Bedside Urine [...] (unknown) (unknown) Blood Pressure (units (unknown) date) 120/62 10/13/22 unknown) 02:29 (unknown) (no (unknown) (unknown) Blood Pressure (units (unknown) date) 120/62 unknown) (unknown) (no (unknown) (unknown) Chief complaint: (units (unknown) date) Abdominal Pain unknown) (unknown) (no (unknown) (unknown) Chlamydia (units (unkn own) date) infection () unknown) (unknown) (no (unknown) (unknown) Clinical (units (unkno wn) date) Impression: unknown) (unknown) (no (unknown) (unknown) Const (units (unkno wn) date) unknown) (unknown) (no (unknown) (unknown) Constitutional (units (unknown) date) unknown) (unknown) (no (unknown) (unknown) Constitutional: (units (unknown) date) Reports system unknown) reviewed and no additional complaints, except as (unknown) (no (unknown) (unknown) Course (units (unkno wn) date) unknown) (unknown) (no (unknown) (unknown) : 2000 (units (unknown) date) Acct:[id number] unknown) (unknown) (no (unknown) (unknown) Date of Service: (units (unknown) date) 10/13/22 unknown) (unknown) (no (unknown) (unknown) Departure (units (unkn own) date) unknown) (unknown) (no (unknown) (unknown) Discharge Plan (units (unknown) date) unknown) (unknown) (no (unknown) (unknown) Discontinued (units (u nknown) date) Medications unknown) (unknown) (no (unknown) (unknown) Documented By: GC (units (unknown) date) unknown) (unknown) (no (unknown) (unknown) ER Physician: (units ( unknown) date) Asher Perez D.O. unknown) (unknown) (no (unknown) (unknown) Emergency Report (units (unknown) date) unknown) (unknown) (no (unknown) (unknown) Endometriosis (units ( unknown) date) () unknown) (unknown) (no (unknown) (unknown) Esterase (units (unkno wn) date) unknown) (unknown) (no (unknown) (unknown) Exam (units (unkno wn) date) unknown) (unknown) (no (unknown) (unknown) GI (units (unkno wn) date) unknown) (unknown) (no (unknown) (unknown) (units (unkno wn) date) unknown) (unknown) (no (unknown) (unknown) Gastrointestinal (units (unknown) date) unknown) (unknown) (no (unknown) (unknown) Gastrointestinal: (units (unknown) date) Reports system unknown) reviewed and no additional complaints, except (unknown) (no (unknown) (unknown) General (units (unkno wn) date) unknown) (unknown) (no (unknown) (unknown) General: (units (unkno wn) date) cooperative and unknown) comfortable (unknown) (no (unknown) (unknown) General: patient (units (unknown) date) alert, patient unknown) awake and moves all extremities (unknown) (no (unknown) (unknown) Genitourinary (units ( unknown) date) unknown) (unknown) (no (unknown) (unknown) Genitourinary: (units (unknown) date) Reports system unknown) reviewed and no additional complaints, except as (unknown) (no (unknown) (unknown) Glucose POC 94 (units (unknown) date) unknown) (unknown) (no (unknown) (unknown) HPI - General (units ( unknown) date) Adult unknown) (unknown) (no (unknown) (unknown) HPI narrative: (units (unknown) date) unknown) (unknown) (no (unknown) (unknown) Heavy menstrual (units (unknown) date) period (-2018) unknown) (unknown) (no (unknown) (unknown) History of Present (units (unknown) date) Illness unknown) (unknown) (no (unknown) (unknown) Hx of laparoscopy (units (unknown) date) (04/07/22) unknown) (unknown) (no (unknown) (unknown) Hydromorphone HCl (units (unknown) date) (Hydromorphone 1 Mg unknown) Inj) 1 mg IM NOW ONE (unknown) (no (unknown) (unknown) Initial Vital (units ( unknown) date) Signs unknown) (unknown) (no (unknown) (unknown) Initial Vital (units ( unknown) date) Signs: unknown) (unknown) (no (unknown) (unknown) Inspection: normal (units (unknown) date) to inspection unknown) (unknown) (no (unknown) (unknown) Instructions: DI (units (unknown) date) for Abdominal unknown) Pain-Adult (unknown) (no (unknown) (unknown) Integumentary/Kinzers (units (unknown) date) sts unknown) (unknown) (no (unknown) (unknown) Irregular (units (unkn own) date) menstrual cycle unknown) () (unknown) (no (unknown) (unknown) [facility] (units (unknown) date) [address] unknown) [place] [id number] (unknown) (no (unknown) (unknown) Agatha Abrams, (units (unknown) date) [employer] ADMINISTRATOR [Primary Care unknown) Provider] (unknown) (no (unknown) (unknown) Lab Data (units (unkno wn) date) unknown) (unknown) (no (unknown) (unknown) Labs: (units (unkno wn) date) unknown) (unknown) (no (unknown) (unknown) Last Admin: (units (un known) date) 10/13/22 02:47 unknown) Dose: 1 mg (unknown) (no (unknown) (unknown) Left-sided adnexal (units (unknown) date) pain unknown) (unknown) (no (unknown) (unknown) Lymphangioma (units (u nknown) date) unknown) (unknown) (no (unknown) (unknown) MDM Narrative (units ( unknown) date) unknown) (unknown) (no (unknown) (unknown) Medical Decision (units (unknown) date) Making unknown) (unknown) (no (unknown) (unknown) Medical History (units (unknown) date) (Reviewed 10/13/22 unknown) @ 03:28 by Asher Perez DO) (unknown) (no (unknown) (unknown) Medical decision (units (unknown) date) making narrative: unknown) (unknown) (no (unknown) (unknown) Medication (units (unk nown) date) Instructions unknown) Recorded (unknown) (no (unknown) (unknown) Mode of arrival: (units (unknown) date) Ambulatory unknown) (unknown) (no (unknown) (unknown) Neuro (units (unkno wn) date) unknown) (unknown) (no (unknown) (unknown) No Action (units (unkn own) date) unknown) (unknown) (no (unknown) (unknown) Opioids - Morphine (units (unknown) date) Analogues Allergy unknown) Intermediate rash Verified 10/07/22 14:59 (unknown) (no (unknown) (unknown) Ordered: (units (unkno wn) date) unknown) (unknown) (no (unknown) (unknown) Orders (units (unkno wn) date) unknown) (unknown) (no (unknown) (unknown) Other: (units (unkno wn) date) unknown) (unknown) (no (unknown) (unknown) Ovarian cyst (units (u nknown) date) unknown) (unknown) (no (unknown) (unknown) Oxygen Delivery (units (unknown) date) Method Room Air unknown) 10/13/22 02:29 (unknown) (no (unknown) (unknown) Oxygen Delivery (units (unknown) date) Method Room Air unknown) (unknown) (no (unknown) (unknown) Painful menstrual (units (unknown) date) periods () unknown) (unknown) (no (unknown) (unknown) Palpation: soft, (units (unknown) date) No firm, No rigid unknown) and tender (Left lower quadrant) (unknown) (no (unknown) (unknown) Patient (units (unkno wn) date) Disposition: Home unknown) (unknown) (no (unknown) (unknown) Patient History (units (unknown) date) unknown) (unknown) (no (unknown) (unknown) Patient does have (units (unknown) date) a benign exam. She unknown) does have left-sided abdomen/adnexal pain (unknown) (no (unknown) (unknown) Patient is a (units (un known) date) 21-year-old female unknown) who has had issues with chronic abdominal/pelvic (unknown) (no (unknown) (unknown) Patient: (units (unkno wn) date) Ade Vidales Juan unknown) MR#: [id number] (unknown) (no (unknown) (unknown) Point of Care (units ( unknown) date) Testing unknown) (unknown) (no (unknown) (unknown) Point of care (units ( unknown) date) testing: unknown) (unknown) (no (unknown) (unknown) Test (units (unknown) date) Results Negative unknown) (unknown) (no (unknown) (unknown) Prescriptions: (units (unknown) date) unknown) (unknown) (no (unknown) (unknown) Previous Rx's (units ( unknown) date) unknown) (unknown) (no (unknown) (unknown) Pulse Oximetry 98 (units (unknown) date) 10/13/22 02:29 unknown) (unknown) (no (unknown) (unknown) Pulse Oximetry 98 (units (unknown) date) unknown) (unknown) (no (unknown) (unknown) Pulse Rate 60 (units ( unknown) date) 10/13/22 02:29 unknown) (unknown) (no (unknown) (unknown) Pulse Rate 60 (units ( unknown) date) unknown) (unknown) (no (unknown) (unknown) Recommend that you (units (unknown) date) continue to take unknown) all of your medications as directed and (unknown) (no (unknown) (unknown) Referrals: (units (unk nown) date) unknown) (unknown) (no (unknown) (unknown) Related Data (units (u nknown) date) unknown) (unknown) (no (unknown) (unknown) Repeat second dose (units (unknown) date) 48 hrs after first unknown) dose. (unknown) (no (unknown) (unknown) Respiratory Rate (units (unknown) date) 16 10/13/22 02:29 unknown) (unknown) (no (unknown) (unknown) Respiratory Rate (units (unknown) date) 16 unknown) (unknown) (no (unknown) (unknown) Review of Systems (units (unknown) date) unknown) (unknown) (no (unknown) (unknown) Rx Instructions: (units (unknown) date) unknown) (unknown) (no (unknown) (unknown) S/P ACL (units (unkno wn) date) reconstruction unknown) (-06/08/21) (unknown) (no (unknown) (unknown) She was given pain (units (unknown) date) medication which unknown) she states improved her pain quite a bit. (unknown) (no (unknown) (unknown) Signed By: (units (unk nown) date) unknown) (unknown) (no (unknown) (unknown) Skin/Breast: (units (u nknown) date) Reports system unknown) reviewed and no additional complaints, except as (unknown) (no (unknown) (unknown) Smoking Status: (units (unknown) date) Current some day unknown) smoker (unknown) (no (unknown) (unknown) Social History (units (unknown) date) (Reviewed 10/13/22 unknown) @ 03:28 by Asher Perez DO) (unknown) (no (unknown) (unknown) Source: patient (units (unknown) date) and family unknown) (unknown) (no (unknown) (unknown) Stand Alone Forms: (units (unknown) date) Patient Portal/API, unknown) Work Release Note (unknown) (no (unknown) (unknown) Stated complaint: (units (unknown) date) ABD PAIN unknown) (unknown) (no (unknown) (unknown) Stop: 10/13/22 (units (unknown) date) 02:40 unknown) (unknown) (no (unknown) (unknown) Substance Use (units ( unknown) date) Type: does not use unknown) (unknown) (no (unknown) (unknown) Surgical History (units (unknown) date) (Updated 10/07/22 @ unknown) 08:13 by Mile De La Rosa RN) (unknown) (no (unknown) (unknown) TOA (tubo-ovarian (units (unknown) date) abscess) unknown) (-06/28/21) (unknown) (no (unknown) (unknown) Temperature 97.7 F (units (unknown) date) 10/13/22 02:29 unknown) (unknown) (no (unknown) (unknown) Temperature 97.7 F (units (unknown) date) unknown) (unknown) (no (unknown) (unknown) Time Seen by (units (u nknown) date) Provider: 10/13/22 unknown) 02:27 (unknown) (no (unknown) (unknown) Urine Dip (units (unkn own) date) unknown) (unknown) (no (unknown) (unknown) Urine Specific (units (unknown) date) [place] 1.020 unknown) (unknown) (no (unknown) (unknown) Vital Signs - 8 hr (units (unknown) date) unknown) (unknown) (no (unknown) (unknown) Vital Signs (units (un known) date) unknown) (unknown) (no (unknown) (unknown) Vital signs: (units (u nknown) date) unknown) (unknown) (no (unknown) (unknown) Will discharge (units (unknown) date) patient home with unknown) instructions to keep her appointment with the (unknown) (no (unknown) (unknown) alcohol intake (units (unknown) date) frequency: unknown) holidays/special occasions only (unknown) (no (unknown) (unknown) alcohol intake: (units (unknown) date) current unknown) (unknown) (no (unknown) (unknown) amoxicillin (units (un known) date) AdvReac Vomiting unknown) Verified 10/07/22 15:00 (unknown) (no (unknown) (unknown) as documented (units ( unknown) date) unknown) (unknown) (no (unknown) (unknown) clindamycin HCl (units (unknown) date) 150 mg capsule 150 unknown) mg PO DAILY #30 caps 03/17/22 (unknown) (no (unknown) (unknown) clindamycin HCl (units (unknown) date) 150 mg capsule unknown) (unknown) (no (unknown) (unknown) documented (units (unk nown) date) unknown) (unknown) (no (unknown) (unknown) doxycycline (units (un known) date) AdvReac unknown) Intermediate vomitt Verified 10/07/22 14:59 (unknown) (no (unknown) (unknown) emergency (units (unkn own) date) department for new unknown) symptoms. (unknown) (no (unknown) (unknown) fluconazole 150 mg (units (unknown) date) tablet 150 mg PO unknown) Q48H 2 doses #2 tabs 08/31/22 (unknown) (no (unknown) (unknown) fluconazole (units (un known) date) [Diflucan] 150 mg unknown) tablet (unknown) (no (unknown) (unknown) follow all of the (units (unknown) date) instructions given unknown) to you by the surgeon. Return to the (unknown) (no (unknown) (unknown) further evaluate (units (unknown) date) the left-sided pain unknown) and potential removal of her fallopian (unknown) (no (unknown) (unknown) auto wheel alignment specialist tomorrow for (units (unknown) date) her surgery. She unknown) was given return precautions. She expressed (unknown) (no (unknown) (unknown) household members: (units [...] tablet unknown) (unknown) (no (unknown) (unknown) pain for many (units ( unknown) date) weeks/months. She unknown) is scheduled for surgery tomorrow with her auto wheel alignment specialist (unknown) (no (unknown) (unknown) tablet vomiting (units (unknown) date) #10 tabs unknown) (unknown) (no (unknown) (unknown) that she states is (units (unknown) date) consistent with her unknown) prior pain. She is had a very extensive (unknown) (no (unknown) (unknown) the left side of (units (unknown) date) her abdomen that is unknown) consistent with her prior discomfort. No (unknown) (no (unknown) (unknown) tobacco type: (units ( unknown) date) vaping unknown) (unknown) (no (unknown) (unknown) tomorrow she is an (units (unknown) date) extensive workup we unknown) will hold on further imaging for now. (unknown) (no (unknown) (unknown) tube. She states (units (unknown) date) that for the past unknown) several days she is had increasing pain in (unknown) (no (unknown) (unknown) understanding (units ( unknown) date) unknown) (unknown) (no (unknown) (unknown) vaginal bleeding. (units (unknown) date) unknown) (unknown) (no (unknown) (unknown) vomiting. No (units (u nknown) date) fevers. No change unknown) in bowel habits. No urinary symptoms. No (unknown) (no (unknown) (unknown) workup of the (units ( unknown) date) symptoms. Given the unknown) fact that she is scheduled for surgery Result panel 367 (unknown) (no (unknown) (unknown) (no value) (units (unk nown) date) unknown) (unknown) (no (unknown) (unknown) (Diflucan) (units (unk nown) date) unknown) (unknown) (no (unknown) (unknown) (Dilaudid) (units (unk nown) date) unknown) (unknown) (no (unknown) (unknown) [id number] (units (unkno wn) date) unknown) (unknown) (no (unknown) (unknown) 1 tab PO Q4-6H (units (unknown) date) PRN (Reason: unknown) pain) Qty: 10 0RF (unknown) (no (unknown) (unknown) 10 mg PO Q6H PRN (units (unknown) date) (Reason: pain) unknown) Qty: 14 0RF (unknown) (no (unknown) (unknown) 150 mg PO DAILY (units (unknown) date) Qty: 30 0RF unknown) (unknown) (no (unknown) (unknown) 150 mg PO Q48H (units (unknown) date) Qty: 2 4RF unknown) (unknown) (no (unknown) (unknown) 4 mg [...] nown) date) unknown) (unknown) (no (unknown) (unknown) Chlamydia (units (unkn own) date) infection () unknown) (unknown) (no (unknown) (unknown) : 2000 (units (unknown) date) Acct:[id number] unknown) (unknown) (no (unknown) (unknown) Date of Service: (units (unknown) date) 10/27/22 unknown) (unknown) (no (unknown) (unknown) Departure (units (unkn own) date) unknown) (unknown) (no (unknown) (unknown) Discharge Plan (units (unknown) date) unknown) (unknown) (no (unknown) (unknown) ER Physician: (units ( unknown) date) Shanae Odell unknown) D.O. (unknown) (no (unknown) (unknown) Emergency Report (units (unknown) date) unknown) (unknown) (no (unknown) (unknown) Endometriosis (units ( unknown) date) () unknown) (unknown) (no (unknown) (unknown) General (units (unkno wn) date) unknown) (unknown) (no (unknown) (unknown) HPI - Abdominal (units (unknown) date) Pain unknown) (unknown) (no (unknown) (unknown) Heavy menstrual (units (unknown) date) period (-2018) unknown) (unknown) (no (unknown) (unknown) Hx of (units (unkno wn) date) laparoscopy unknown) (04/07/22) (unknown) (no (unknown) (unknown) Irregular (units (unkn own) date) menstrual cycle unknown) () (unknown) (no (unknown) (unknown) [facility] (units (unknown) date) [address] [place] [address] unknown) [place] [address] (unknown) (no (unknown) (unknown) Joel Abrams (units (unknown) date) ELEUTERIO dasilva [Primary unknown) Care Provider] (unknown) (no (unknown) (unknown) Limitations: no (units (unknown) date) limitations unknown) (unknown) (no (unknown) (unknown) Lymphangioma (units (u nknown) date) unknown) (unknown) (no (unknown) (unknown) Medical History (units (unknown) date) (Reviewed unknown) 10/27/22 @ 05:21 by Shanae Odell DO) (unknown) (no (unknown) (unknown) Medication (units (unk nown) date) Instructions unknown) Recorded (unknown) (no (unknown) (unknown) Mode of arrival: (units (unknown) date) Ambulatory unknown) (unknown) (no (unknown) (unknown) No Action (units (unkn own) date) unknown) (unknown) (no (unknown) (unknown) Opioids - (units (unkn own) date) Morphine unknown) Analogues Allergy Intermediate rash Verified 10/07/22 14:59 (unknown) (no (unknown) (unknown) Ovarian cyst (units [...] date) unknown) (unknown) (no (unknown) (unknown) ROS Unobtainable: (units (unknown) date) All systems unknown) reviewed + are unremarkable except as noted in HPI (unknown) (no (unknown) (unknown) Referrals: (units (unk nown) date) unknown) (unknown) (no (unknown) (unknown) Related Data (units (u nknown) date) unknown) (unknown) (no (unknown) (unknown) Repeat second (units ( unknown) date) dose 48 hrs after unknown) first dose. (unknown) (no (unknown) (unknown) Review of (units (unkn own) date) Systems unknown) (unknown) (no (unknown) (unknown) Rx Instructions: (units (unknown) date) unknown) (unknown) (no (unknown) (unknown) S/P ACL (units (unkno wn) date) reconstruction unknown) (06/08/21) (unknown) (no (unknown) (unknown) Signed By: (units (unk nown) date) unknown) (unknown) (no (unknown) (unknown) Smoking Status: (units (unknown) date) Current some day unknown) smoker (unknown) (no (unknown) (unknown) Social History (units (unknown) date) (Reviewed unknown) 10/27/22 @ 05:21 by Shanae Odell DO) (unknown) (no (unknown) (unknown) Source: patient (units (unknown) date) unknown) (unknown) (no (unknown) (unknown) Stated (units (unkno wn) date) Complaint: abd unknown) pain (unknown) (no (unknown) (unknown) Substance Use (units ( unknown) date) Type: does not unknown) use (unknown) (no (unknown) (unknown) Surgical History (units (unknown) date) (Reviewed unknown) 10/27/22 @ 05:21 by Shanae Odell DO) (unknown) (no (unknown) (unknown) TOA (units (unkno wn) date) (tubo-ovarian unknown) abscess) (06/28/21) (unknown) (no (unknown) (unknown) Time Seen by (units (u nknown) date) Provider: unknown) 10/27/22 05:18 (unknown) (no (unknown) (unknown) alcohol intake (units (unknown) date) frequency: unknown) holidays/special occasions only (unknown) (no (unknown) (unknown) alcohol intake: (units (unknown) date) current unknown) (unknown) (no (unknown) (unknown) amoxicillin (units (un known) date) AdvReac Vomiting unknown) Verified 10/07/22 15:00 (unknown) (no (unknown) (unknown) and below (units (unkn own) date) unknown) (unknown) (no (unknown) (unknown) clindamycin HCl (units (unknown) date) 150 mg capsule unknown) 150 mg PO DAILY #30 caps 03/17/22 (unknown) (no (unknown) (unknown) clindamycin HCl (units (unknown) date) 150 mg capsule unknown) (unknown) (no (unknown) (unknown) doxycycline (units (un known) date) AdvReac unknown) Intermediate vomitt Verified 10/07/22 14:59 (unknown) (no (unknown) (unknown) fluconazole 150 (units (unknown) date) mg tablet 150 mg unknown) PO Q48H 2 doses #2 tabs 08/31/22 (unknown) (no (unknown) (unknown) fluconazole (units (un known) date) [Diflucan] 150 mg unknown) tablet (unknown) (no (unknown) (unknown) household (units (unkn [...] ( unknown) date) vaping unknown) Result panel 368 (unknown) (no (unknown) (unknown) (no value) (units (unk nown) date) unknown) (unknown) (no (unknown) (unknown) [id number] (units (unkn own) date) unknown) (unknown) (no (unknown) (unknown) 10/27/22 (units (unkno wn) date) unknown) (unknown) (no (unknown) (unknown) [address] [place] [address] (units (unknown) date) unknown) (unknown) (no (unknown) (unknown) Accession Number: (units (unknown) date) [id number] unknown) (unknown) (no (unknown) (unknown) Accession Number: (units (unknown) date) [id number] unknown) (unknown) (no (unknown) (unknown) Additional (units (unkn own) date) endovaginal unknown) scanning was necessary due to incomplete visualization of (unknown) (no (unknown) (unknown) Age/Sex: 21 / F (units (unknown) date) Date of Service: unknown) (unknown) (no (unknown) (unknown) LASHA Davison (units ( unknown) date) [id number] unknown) (unknown) (no (unknown) (unknown) Approved by: (units (u nknown) date) germaine Chiu) [place] on 10/27/2022 at 8:52 (unknown) (no (unknown) (unknown) Approved by: (units (u nknown) date) germaine Chiu) M.D. on 10/27/2022 at 8:55 (unknown) (no (unknown) (unknown) COMPARISON: (units (un known) date) [facility], unknown) CT, CT ABDOMEN PELVIS W CON, 06/07/2022, 3:28. (unknown) (no (unknown) (unknown) COMPARISON: (units (un known) date) [facility], unknown) US, US PELVIC COMPLETE, 08/31/2022, 15:25. (unknown) (no (unknown) (unknown) : 2000 (units (unknown) date) Acct:[id number] unknown) (unknown) (no (unknown) (unknown) FINDINGS: (units (unkn own) date) unknown) (unknown) (no (unknown) (unknown) IMPRESSION: No (units (unknown) date) acute sonographic unknown) abnormality in the right upper quadrant. (unknown) (no (unknown) (unknown) IMPRESSION: Right (units (unknown) date) ovary is enlarged unknown) by a 2.6 cm simple cyst. No acute (unknown) (no (unknown) (unknown) INDICATIONS: (units (u nknown) date) RIGHT FLANK PAIN unknown) (unknown) (no (unknown) (unknown) INDICATIONS: (units (u nknown) date) RIGHT PELVIC PAIN unknown) (unknown) (no (unknown) (unknown) [facility] (units (unknown) date) unknown) (unknown) (no (unknown) (unknown) Less than 12 (units (u nknown) date) follicles can be unknown) seen in each ovary. No adnexal masses are seen. (unknown) (no (unknown) (unknown) Liver is normal (units (unknown) date) in size at 14.5 cm unknown) and demonstrates normal echogenicity. (unknown) (no (unknown) (unknown) Loc: ED (units (unkno wn) date) unknown) (unknown) (no (unknown) (unknown) No intrahepatic (units (unknown) date) or extrahepatic unknown) biliary duct dilatation. Common bile duct (unknown) (no (unknown) (unknown) Ordering (units (unkno wn) date) Provider: unknown) Shanae Odell DTanvirOTanvir (unknown) (no (unknown) (unknown) Other: (units (unkno wn) date) Physiologic amount unknown) of free fluid is present. (unknown) (no (unknown) (unknown) Ovaries: The (units (u nknown) date) right ovary unknown) measures 3.7 x 4.0 x 2.8 cm, with a calculated ovarian (unknown) (no (unknown) (unknown) PROCEDURE: US (units ( unknown) date) ABDOMEN LIMITED unknown) (unknown) (no (unknown) (unknown) PROCEDURE: US (units ( unknown) date) PELVIC COMPLETE unknown) (unknown) (no (unknown) (unknown) Patient: (units (unkno wn) date) Ade Vidales E unknown) MR#: [id number] (unknown) (no (unknown) (unknown) Procedure: US (units ( unknown) date) abdomen limited unknown) (unknown) (no (unknown) (unknown) Procedure: US (units ( unknown) date) pelvic complete unknown) (unknown) (no (unknown) (unknown) Real-time focused (units (unknown) date) scanning was unknown) performed of the abdomen, with image (unknown) (no (unknown) (unknown) Real-time scanning (units (unknown) date) was performed of unknown) the pelvic organs, with image documentation. (unknown) (no (unknown) (unknown) Right kidney (units (u nknown) date) measures 9.4 cm in unknown) length. No hydronephrosis. No free fluid is (unknown) (no (unknown) (unknown) Signed (units (unkno wn) date) unknown) (unknown) (no (unknown) (unknown) TECHNIQUE: (units (unk nown) date) unknown) (unknown) (no (unknown) (unknown) The gallbladder (units (unknown) date) appears normal unknown) without gallstones or gallbladder wall (unknown) (no (unknown) (unknown) The visualized (units (unknown) date) portions of the unknown) pancreas are unremarkable. (unknown) (no (unknown) (unknown) There is no (units (un known) date) significant unknown) discrepancy when compared to the overnight preliminary (unknown) (no (unknown) (unknown) To assist (units (unkn own) date) unknown) (unknown) (no (unknown) (unknown) Ultrasound Report (units (unknown) date) unknown) (unknown) (no (unknown) (unknown) Uterus: Uterus is (units (unknown) date) anteverted and unknown) normal in size at 6.7 x 3.7 x 5.2 cm. The (unknown) (no (unknown) (unknown) We strive to (units (u nknown) date) produce accurate, unknown) complete, and clear reports of imaging services. (unknown) (no (unknown) (unknown) abnormality. (units (u nknown) date) unknown) (unknown) (no (unknown) (unknown) adnexal and (units (un known) date) endometrial unknown) structures by transabdominal scanning. (unknown) (no (unknown) (unknown) and voice (units (unkn own) date) recognition unknown) software. Therefore, it may contain abnormal punctuation, (unknown) (no (unknown) (unknown) documentation. (units (unknown) date) unknown) (unknown) (no (unknown) (unknown) homogeneous. The (units (unknown) date) endometrium unknown) measures 14 mm combined thickness. (unknown) (no (unknown) (unknown) inaccuracies. (units ( unknown) date) unknown) (unknown) (no (unknown) (unknown) insertions and/or (units (unknown) date) omissions. unknown) Occasional wrong-word or sound-alike substitutions (unknown) (no (unknown) (unknown) is no (units (unkno wn) date) pericholecystic unknown) fluid. Sonographic Dietrich sign is negative. (unknown) (no (unknown) (unknown) may (units (unkno wn) date) unknown) (unknown) (no (unknown) (unknown) measures 2.9 (units (u nknown) date) unknown) (unknown) (no (unknown) (unknown) mm in diameter. (units (unknown) date) unknown) (unknown) (no (unknown) (unknown) myometrium is (units ( unknown) date) unknown) (unknown) (no (unknown) (unknown) occur. Though we (units (unknown) date) review the report unknown) and make efforts to correct it, we do (unknown) (no (unknown) (unknown) of 21.3 cc. The (units (unknown) date) left ovary unknown) measures 2.9 x 2.0 x 2.7 cm, with a calculated (unknown) (no (unknown) (unknown) of 8.1 cc. A 2.6 (units (unknown) date) x 2.1 x 2.6 cm unknown) simple cyst/dominant follicle seen in the right (unknown) (no (unknown) (unknown) ovarian volume (units (unknown) date) unknown) (unknown) (no (unknown) (unknown) ovary. (units (unkno wn) date) unknown) (unknown) (no (unknown) (unknown) recommend that (units (unknown) date) unknown) (unknown) (no (unknown) (unknown) report. (units (unkno wn) date) unknown) (unknown) (no (unknown) (unknown) right upper (units (un known) date) quadrant. unknown) (unknown) (no (unknown) (unknown) seen in the (units (un known) date) unknown) (unknown) (no (unknown) (unknown) sonographic (units (un known) date) unknown) (unknown) (no (unknown) (unknown) templates (units (unkn own) date) unknown) (unknown) (no (unknown) (unknown) the report be (units ( unknown) date) read carefully in unknown) proper context to recognize any text (unknown) (no (unknown) (unknown) the (units (unkno wn) date) unknown) (unknown) (no (unknown) (unknown) thickening. There (units (unknown) date) unknown) (unknown) (no (unknown) (unknown) us in improving (units (unknown) date) patient care, this unknown) report was composed using standard report (unknown) (no (unknown) (unknown) volume (units (unkno wn) date) unknown) Result panel 369 (unknown) (no (unknown) (unknown) (no value) (units (unk nown) date) unknown) (unknown) (no (unknown) (unknown) (Diflucan) (units (unk nown) date) unknown) (unknown) (no (unknown) (unknown) (Dilaudid) (units (unk nown) date) unknown) (unknown) (no (unknown) (unknown) [id number] (units (unkno wn) date) unknown) (unknown) (no (unknown) (unknown) 10/27/22 (units (unkno wn) date) unknown) (unknown) (no (unknown) (unknown) 05:21 (units (unkno wn) date) unknown) (unknown) (no (unknown) (unknown) 1 tab PO Q4-6H (units (unknown) date) PRN (Reason: unknown) pain) Qty: 10 0RF (unknown) (no (unknown) (unknown) 10 mg PO Q6H PRN (units (unknown) date) (Reason: pain) unknown) Qty: 14 0RF (unknown) (no (unknown) (unknown) 150 mg PO DAILY (units (unknown) date) Qty: 30 0RF unknown) (unknown) (no (unknown) (unknown) 150 mg PO Q48H (units (unknown) date) Qty: 2 4RF unknown) (unknown) (no (unknown) (unknown) 4 mg [...] (unknown) (unknown) Blood Pressure (units (unknown) date) 137/85 10/27/22 unknown) 05:21 (unknown) (no (unknown) (unknown) Blood Pressure (units (unknown) date) 137/85 unknown) (unknown) (no (unknown) (unknown) Chief Complaint: (units (unknown) date) Abdominal Pain unknown) (unknown) (no (unknown) (unknown) Chlamydia (units (unkn own) date) infection () unknown) (unknown) (no (unknown) (unknown) Course (units (unkno wn) date) unknown) (unknown) (no (unknown) (unknown) : 2000 (units (unknown) date) Acct:[id number] unknown) (unknown) (no (unknown) (unknown) Date of Service: (units (unknown) date) 10/27/22 unknown) (unknown) (no (unknown) (unknown) Departure (units (unkn own) date) unknown) (unknown) (no (unknown) (unknown) Discharge Plan (units (unknown) date) unknown) (unknown) (no (unknown) (unknown) ER Physician: (units ( unknown) date) Shanae Odell unknown) D.O. (unknown) (no (unknown) (unknown) Emergency [...] period () unknown) (unknown) (no (unknown) (unknown) Hx of (units (unkno wn) date) laparoscopy unknown) (04/07/22) (unknown) (no (unknown) (unknown) Initial Vital (units ( unknown) date) Signs unknown) (unknown) (no (unknown) (unknown) Initial Vital (units ( unknown) date) Signs: unknown) (unknown) (no (unknown) (unknown) Irregular (units (unkn own) date) menstrual cycle unknown) () (unknown) (no (unknown) (unknown) [facility] (units (unknown) date) [address] unknown) [place] [address] (unknown) (no (unknown) (unknown) Joel Abrams (units (unknown) date) ELEUTERIO dasilva [Primary unknown) Care Provider] (unknown) (no (unknown) (unknown) Limitations: no (units (unknown) date) limitations unknown) (unknown) (no (unknown) (unknown) Lymphangioma (units (u nknown) date) unknown) (unknown) (no (unknown) (unknown) Medical History (units (unknown) date) (Reviewed unknown) 10/27/22 @ 05:21 by Shanae Odell DO) (unknown) (no (unknown) (unknown) Medication (units (unk nown) date) Instructions unknown) Recorded (unknown) (no (unknown) (unknown) Mode of arrival: (units (unknown) date) Ambulatory unknown) (unknown) (no (unknown) (unknown) No Action (units (unkn own) date) unknown) (unknown) (no (unknown) (unknown) Opioids - (units (unkn own) date) Morphine unknown) Analogues Allergy Intermediate rash Verified 10/07/22 14:59 (unknown) (no (unknown) (unknown) Ovarian cyst (units (u nknown) date) unknown) (unknown) (no (unknown) (unknown) Oxygen Delivery (units (unknown) date) Method Room Air unknown) 10/27/22 05:21 (unknown) (no (unknown) (unknown) Oxygen Delivery (units [...] (unknown) (unknown) Pulse Oximetry (units (unknown) date) 99 10/27/22 05:21 unknown) (unknown) (no (unknown) (unknown) Pulse Oximetry (units (unknown) date) 99 unknown) (unknown) (no (unknown) (unknown) Pulse Rate 68 (units ( unknown) date) 10/27/22 05:21 unknown) (unknown) (no (unknown) (unknown) Pulse Rate 68 (units ( unknown) date) unknown) (unknown) (no (unknown) (unknown) ROS Unobtainable: (units (unknown) date) All systems unknown) reviewed + are unremarkable except as noted in HPI (unknown) (no (unknown) (unknown) Referrals: (units (unk nown) date) unknown) (unknown) (no (unknown) (unknown) Related Data (units (u nknown) date) unknown) (unknown) (no (unknown) (unknown) Repeat second (units ( unknown) date) dose 48 hrs after unknown) first dose. (unknown) (no (unknown) (unknown) Respiratory Rate (units (unknown) date) 18 10/27/22 05:21 unknown) (unknown) (no (unknown) (unknown) Respiratory Rate (units (unknown) date) 18 unknown) (unknown) (no (unknown) (unknown) Review of (units (unkn own) date) Systems unknown) (unknown) (no (unknown) (unknown) Rx Instructions: (units (unknown) date) unknown) (unknown) (no (unknown) (unknown) S/P ACL (units (unkno wn) date) reconstruction unknown) (-06/08/21) (unknown) (no (unknown) (unknown) Signed By: (units (unk nown) date) unknown) (unknown) (no (unknown) (unknown) Smoking Status: (units (unknown) date) Current some day unknown) smoker (unknown) (no (unknown) (unknown) Social History (units (unknown) date) (Reviewed unknown) 10/27/22 @ 05:21 by Shanae Odell DO) (unknown) (no (unknown) (unknown) Source: patient (units (unknown) date) unknown) (unknown) (no (unknown) (unknown) Stated (units (unkno wn) date) Complaint: abd unknown) pain (unknown) (no (unknown) (unknown) Substance Use (units ( unknown) date) Type: does not unknown) use (unknown) (no (unknown) (unknown) Surgical History (units (unknown) date) (Reviewed unknown) 10/27/22 @ 05:21 by Shanae Odell DO) (unknown) (no (unknown) (unknown) TOA (units (unkno wn) date) (tubo-ovarian unknown) abscess) (-06/28/21) (unknown) (no (unknown) (unknown) Temperature 97 F (units (unknown) date) L 10/27/22 05:21 unknown) (unknown) (no (unknown) (unknown) Temperature 97 F (units (unknown) date) L unknown) (unknown) (no (unknown) (unknown) Time Seen by (units (u nknown) date) Provider: unknown) 10/27/22 05:18 (unknown) (no (unknown) (unknown) Vital Signs - [...] date) current unknown) (unknown) (no (unknown) (unknown) amoxicillin (units (un known) date) AdvReac Vomiting unknown) Verified 10/07/22 15:00 (unknown) (no (unknown) (unknown) and below (units (unkn own) date) unknown) (unknown) (no (unknown) (unknown) clindamycin HCl (units (unknown) date) 150 mg capsule unknown) 150 mg PO DAILY #30 caps 03/17/22 (unknown) (no (unknown) (unknown) clindamycin HCl (units (unknown) date) 150 mg capsule unknown) (unknown) (no (unknown) (unknown) doxycycline (units (un known) date) AdvReac unknown) Intermediate vomitt Verified 10/07/22 14:59 (unknown) (no (unknown) (unknown) fluconazole 150 (units (unknown) date) mg tablet 150 mg unknown) PO Q48H 2 doses #2 tabs 08/31/22 (unknown) (no (unknown) (unknown) fluconazole (units (un known) date) [Diflucan] 150 mg unknown) tablet (unknown) (no (unknown) (unknown) household (units (unkn [...] ( unknown) date) vaping unknown) Result panel 370 (unknown) (no (unknown) (unknown) (no value) (units (unk nown) date) unknown) (unknown) (no (unknown) (unknown) (Diflucan) (units (unk nown) date) unknown) (unknown) (no (unknown) (unknown) (Dilaudid) (units (unk nown) date) unknown) (unknown) (no (unknown) (unknown) [id number] (units (unkno wn) date) unknown) (unknown) (no (unknown) (unknown) 10/27/22 (units (unkno wn) date) unknown) (unknown) (no (unknown) (unknown) 05:21 (units (unkno wn) date) unknown) (unknown) (no (unknown) (unknown) 1 tab PO Q4-6H (units (unknown) date) PRN (Reason: pain) unknown) Qty: 10 0RF (unknown) (no (unknown) (unknown) 10 mg PO Q6H PRN (units (unknown) date) (Reason: pain) unknown) Qty: 14 0RF (unknown) (no (unknown) (unknown) 150 mg PO DAILY (units (unknown) date) Qty: 30 0RF unknown) (unknown) (no (unknown) (unknown) 150 mg PO Q48H (units (unknown) date) Qty: 2 4RF unknown) (unknown) (no (unknown) (unknown) 4 mg PO Q4-6H PRN (units (unknown) date) (Reason: pain) unknown) Qty: 20 0RF (unknown) (no (unknown) (unknown) 4 mg PO TID-QID (units (unknown) date) PRN (Reason: unknown) nausea and vomiting) Qty: 10 0RF (unknown) (no (unknown) (unknown) 5 mg PO Q4H PRN (units (unknown) date) (Reason: pain) unknown) Qty: 20 0RF (unknown) (no (unknown) (unknown) ABDOMEN: Soft, (units (unknown) date) right lower and unknown) upper quadrant tenderness. Normoactive bowel (unknown) (no (unknown) (unknown) Acne (-2016) (units [...] (unknown) (unknown) Blood Pressure (units (unknown) date) 13710/27/22 unknown) 05:21 (unknown) (no (unknown) (unknown) Blood Pressure (units (unknown) date) unknown) (unknown) (no (unknown) (unknown) CARDIOVASCULAR: (units (unknown) date) Regular rate and unknown) rhythm without murmurs, rubs or gallops. (unknown) (no (unknown) (unknown) Chief Complaint: (units (unknown) date) Abdominal Pain unknown) (unknown) (no (unknown) (unknown) Chlamydia (units (unkn own) date) infection () unknown) (unknown) (no (unknown) (unknown) Course (units (unkno wn) date) unknown) (unknown) (no (unknown) (unknown) : 2000 (units (unknown) date) Acct:[id number] unknown) (unknown) (no (unknown) (unknown) Date of Service: (units (unknown) date) 10/27/22 unknown) (unknown) (no (unknown) (unknown) Departure (units (unkn own) date) unknown) (unknown) (no (unknown) (unknown) Discharge Plan (units (unknown) date) unknown) (unknown) (no (unknown) (unknown) ER Physician: (units ( unknown) date) Shanae Odell D.O. unknown) (unknown) (no (unknown) (unknown) EXTREMITIES: (units (u nknown) date) Normal range of unknown) motion, no clubbing or edema. Neurovascularly (unknown) (no (unknown) (unknown) Emergency Report (units (unknown) date) unknown) (unknown) (no (unknown) (unknown) Endometriosis (units ( unknown) date) () unknown) (unknown) (no (unknown) (unknown) Exam Narrative: (units (unknown) date) unknown) (unknown) (no (unknown) (unknown) Exam (units (unkno wn) date) unknown) (unknown) (no (unknown) (unknown) GENERAL: Alert (units (unknown) date) and oriented x unknown) three, moderate distress. (unknown) (no (unknown) (unknown) : No CVA (units (unk nown) date) tenderness unknown) (unknown) (no (unknown) (unknown) General (units (unkno wn) date) unknown) (unknown) (no (unknown) (unknown) HEENT: Head (units (un known) date) normocephalic, unknown) atraumatic, EOMI, pupils reactive, face symmetric, (unknown) (no (unknown) (unknown) HPI - Abdominal (units (unknown) date) Pain unknown) (unknown) (no (unknown) (unknown) HPI narrative: (units (unknown) date) unknown) (unknown) (no (unknown) (unknown) Heavy menstrual (units (unknown) date) period (-2018) unknown) (unknown) (no (unknown) (unknown) History of (units (unk nown) date) Present Illness unknown) (unknown) (no (unknown) (unknown) Hx of laparoscopy (units (unknown) date) (04/07/22) unknown) (unknown) (no (unknown) (unknown) Initial Vital (units ( unknown) date) Signs unknown) (unknown) (no (unknown) (unknown) Initial Vital (units ( unknown) date) Signs: unknown) (unknown) (no (unknown) (unknown) Irregular (units (unkn own) date) menstrual cycle unknown) () (unknown) (no (unknown) (unknown) [facility] (units (unknown) date) [address] unknown) [place] [address] (unknown) (no (unknown) (unknown) Agatha Abrams (units (unknown) date) , WELFARE ADMINISTRATOR [Primary unknown) Care Provider] (unknown) (no (unknown) (unknown) Limitations: no (units (unknown) date) limitations unknown) (unknown) (no (unknown) (unknown) Lymphangioma (units (u nknown) date) unknown) (unknown) (no (unknown) (unknown) MDM - Abdominal (units (unknown) date) Pain unknown) (unknown) (no (unknown) (unknown) MDM Narrative (units ( unknown) date) unknown) (unknown) (no (unknown) (unknown) Medical History (units (unknown) date) (Reviewed 10/27/22 unknown) @ 05:42 by Shanae Odell DO) (unknown) (no (unknown) (unknown) Medical decision (units (unknown) date) making narrative: unknown) (unknown) (no (unknown) (unknown) Medication (units (unk nown) date) Instructions unknown) Recorded (unknown) (no (unknown) (unknown) Mode of arrival: (units (unknown) date) Ambulatory unknown) (unknown) (no (unknown) (unknown) NECK: Supple, (units ( unknown) date) full range of unknown) motion (unknown) (no (unknown) (unknown) NEUROLOGICAL: (units ( unknown) date) Cranial nerves II unknown) through XII grossly intact. Moving all (unknown) (no (unknown) (unknown) Narrative (units (unkn own) date) unknown) (unknown) (no (unknown) (unknown) No Action (units (unkn own) date) unknown) (unknown) (no (unknown) (unknown) Opioids - (units (unkn own) date) Morphine Analogues unknown) Allergy Intermediate rash Verified 10/07/22 14:59 (unknown) (no (unknown) (unknown) Ovarian cyst (units (u nknown) date) unknown) (unknown) (no (unknown) (unknown) Oxygen Delivery (units (unknown) date) Method Room Air unknown) 10/27/22 05:21 (unknown) (no (unknown) (unknown) Oxygen Delivery (units (unknown) date) Method Room Air unknown) (unknown) (no (unknown) (unknown) Painful menstrual (units (unknown) date) periods () unknown) (unknown) (no (unknown) (unknown) Patient History (units (unknown) date) unknown) (unknown) (no (unknown) (unknown) Patient has had (units (unknown) date) prior tubo-ovarian unknown) abscess as well as hemorrhagic cyst in the (unknown) (no (unknown) (unknown) Patient: (units (unkno wn) date) Ade Vidales unknown) MR#: [id number] (unknown) (no (unknown) (unknown) Prescriptions: (units (unknown) date) unknown) (unknown) (no (unknown) (unknown) Previous Rx's (units ( unknown) date) unknown) (unknown) (no (unknown) (unknown) Pulse Oximetry 99 (units (unknown) date) 10/27/22 05:21 unknown) (unknown) (no (unknown) (unknown) Pulse Oximetry 99 (units (unknown) date) unknown) (unknown) (no (unknown) (unknown) Pulse Rate 68 (units ( unknown) date) 10/27/22 05:21 unknown) (unknown) (no (unknown) (unknown) Pulse Rate 68 (units ( unknown) date) unknown) (unknown) (no (unknown) (unknown) RESPIRATORY: (units (u nknown) date) Breath sounds unknown) equal bilaterally, no wheezes rales or rhonchi. (unknown) (no (unknown) (unknown) ROS Unobtainable: (units (unknown) date) All systems unknown) reviewed + are unremarkable except as noted in HPI (unknown) (no (unknown) (unknown) Referrals: (units (unk nown) date) unknown) (unknown) (no (unknown) (unknown) Related Data (units (u nknown) date) unknown) (unknown) (no (unknown) (unknown) Repeat second (units ( unknown) date) dose 48 hrs after unknown) first dose. (unknown) (no (unknown) (unknown) Respiratory Rate (units (unknown) date) 18 10/27/22 05:21 unknown) (unknown) (no (unknown) (unknown) Respiratory Rate (units (unknown) date) 18 unknown) (unknown) (no (unknown) (unknown) Review of Systems (units (unknown) date) unknown) (unknown) (no (unknown) (unknown) Rx Instructions: (units (unknown) date) unknown) (unknown) (no (unknown) (unknown) S/P ACL (units (unkno wn) date) reconstruction unknown) (-06/08/21) (unknown) (no (unknown) (unknown) SKIN: Warm, dry, (units (unknown) date) no petechiae, no unknown) rashes or lesions. (unknown) (no (unknown) (unknown) She states she is (units (unknown) date) been stooling unknown) regularly with form soft stools. No diarrhea, (unknown) (no (unknown) (unknown) Signed By: (units (unk nown) date) unknown) (unknown) (no (unknown) (unknown) Smoking Status: (units (unknown) date) Current some day unknown) smoker (unknown) (no (unknown) (unknown) Social History (units (unknown) date) (Reviewed 10/27/22 unknown) @ 05:42 by Shanae Odell DO) (unknown) (no (unknown) (unknown) Source: patient (units (unknown) date) unknown) (unknown) (no (unknown) (unknown) Stated Complaint: (units (unknown) date) abd pain unknown) (unknown) (no (unknown) (unknown) Substance Use (units ( unknown) date) Type: does not use unknown) (unknown) (no (unknown) (unknown) Surgical History (units (unknown) date) (Reviewed 10/27/22 unknown) @ 05:42 by Shanae Odell DO) (unknown) (no (unknown) (unknown) TOA (tubo-ovarian (units (unknown) date) abscess) unknown) (-06/28/21) (unknown) (no (unknown) (unknown) Temperature 97 F (units (unknown) date) L 10/27/22 05:21 unknown) (unknown) (no (unknown) (unknown) Temperature 97 F (units (unknown) date) L unknown) (unknown) (no (unknown) (unknown) This is a (units (unkn own) date) 21-year-old female unknown) who presents with acute on chronic or (unknown) (no (unknown) (unknown) This is a (units (unkn own) date) 21-year-old female unknown) with history of prior tubo-ovarian abscess with (unknown) (no (unknown) (unknown) Time Seen by (units (u nknown) date) Provider: 10/27/22 unknown) 05:18 (unknown) (no (unknown) (unknown) Vital Signs - 8 (units (unknown) date) hr unknown) (unknown) (no (unknown) (unknown) Vital Signs (units (un known) date) unknown) (unknown) (no (unknown) (unknown) Vital signs: (units (u nknown) date) unknown) (unknown) (no (unknown) (unknown) a muscle it has (units (unknown) date) been slowly unknown) increasing over time. She went to work out last (unknown) (no (unknown) (unknown) accompanied by (units (unknown) date) her mother today. unknown) Patient is following with JORDAN Lacey. (unknown) (no (unknown) (unknown) alcohol intake (units (unknown) date) frequency: unknown) holidays/special occasions only (unknown) (no (unknown) (unknown) alcohol intake: (units (unknown) date) current unknown) (unknown) (no (unknown) (unknown) amoxicillin (units (un known) date) AdvReac Vomiting unknown) Verified 10/07/22 15:00 (unknown) (no (unknown) (unknown) and below (units (unkn own) date) unknown) (unknown) (no (unknown) (unknown) atypical. She is (units (unknown) date) denying any flank unknown) pain. Patient denies any other surgeries (unknown) (no (unknown) (unknown) besides her right (units (unknown) date) fallopian tube unknown) removal. She has allergies to morphine, (unknown) (no (unknown) (unknown) clindamycin HCl (units (unknown) date) 150 mg capsule 150 unknown) mg PO DAILY #30 caps 03/17/22 (unknown) (no (unknown) (unknown) clindamycin HCl (units (unknown) date) 150 mg capsule unknown) (unknown) (no (unknown) (unknown) constipation, no (units (unknown) date) black or bloody unknown) stools. She denies dysuria, urgency or (unknown) (no (unknown) (unknown) different as it is (units (unknown) date) right-sided but unknown) also goes to the right upper abdomen which is (unknown) (no (unknown) (unknown) doxycycline (units (un known) date) AdvReac unknown) Intermediate vomitt Verified 10/07/22 14:59 (unknown) (no (unknown) (unknown) doxycycline and (units (unknown) date) amoxicillin. No unknown) tobacco, alcohol or illicit. She is (unknown) (no (unknown) (unknown) extremities (units (un known) date) unknown) (unknown) (no (unknown) (unknown) fluconazole 150 (units (unknown) date) mg tablet 150 mg unknown) PO Q48H 2 doses #2 tabs 08/31/22 (unknown) (no (unknown) (unknown) fluconazole (units (un known) date) [Diflucan] 150 mg unknown) tablet (unknown) (no (unknown) (unknown) for evaluation (units (unknown) date) and this was unknown) delayed by scheduling circumstances and has been (unknown) (no (unknown) (unknown) frequency. No (units ( unknown) date) vaginal bleeding unknown) or discharge. Patient states this feels (unknown) (no (unknown) (unknown) household (units (unkn own) date) members: friend(s) unknown) (unknown) (no (unknown) (unknown) hydrocodone 5 (units ( unknown) date) mg-acetaminophen unknown) 325 1 tab PO Q4-6H PRN pain #10 tabs 06/07/22 (unknown) (no (unknown) (unknown) hydrocodone-aceta (units (unknown) date) minophen 5-325 mg unknown) tablet (unknown) (no (unknown) (unknown) hydromorphone 4 (units (unknown) date) mg tablet 4 mg PO unknown) Q4-6H PRN pain #20 tabs 04/08/22 (unknown) (no (unknown) (unknown) hydromorphone (units ( unknown) date) [Dilaudid] 4 mg unknown) tablet (unknown) (no (unknown) (unknown) intact (units (unkno wn) date) unknown) (unknown) (no (unknown) (unknown) ketorolac 10 mg (units (unknown) date) tablet 10 mg PO unknown) Q6H PRN pain #14 tabs 06/07/22 (unknown) (no (unknown) (unknown) ketorolac 10 mg (units (unknown) date) tablet unknown) (unknown) (no (unknown) (unknown) lower pelvic (units (u nknown) date) discomfort about 2 unknown) or 3 days ago she thought she might have pulled (unknown) (no (unknown) (unknown) mg tablet (units (unkn own) date) unknown) (unknown) (no (unknown) (unknown) moist mucous (units (u nknown) date) membranes unknown) (unknown) (no (unknown) (unknown) night and that (units (unknown) date) made things worse. unknown) She denies fevers or chills, no chest pain or (unknown) (no (unknown) (unknown) obtaining CT but (units (unknown) date) felt be more unknown) appropriate to evaluate with ultrasound at this (unknown) (no (unknown) (unknown) ondansetron 4 mg (units (unknown) date) disintegrating 4 unknown) mg PO TID-QID PRN nausea and 06/07/22 (unknown) (no (unknown) (unknown) ondansetron 4 mg (units (unknown) date) tablet,disintegrat unknown) ing (unknown) (no (unknown) (unknown) oxycodone 5 mg (units (unknown) date) tablet 5 mg PO Q4H unknown) PRN pain #20 tabs 04/07/22 (unknown) (no (unknown) (unknown) oxycodone 5 mg (units (unknown) date) tablet unknown) (unknown) (no (unknown) (unknown) past. Plan for (units (unknown) date) fluids, pain unknown) medication, ultrasound and reassessment. Discussed (unknown) (no (unknown) (unknown) pelvic/abdominal (units (unknown) date) pain. On exam unknown) patient has right upper and lower quadrant (unknown) (no (unknown) (unknown) rescheduled for (units (unknown) date) later in the unknown) month. Patient states she started having some (unknown) (no (unknown) (unknown) salpingectomy on (units (unknown) date) the right. Patient unknown) had surgery scheduled for ex lap with OBGYN (unknown) (no (unknown) (unknown) shortness of (units (u nknown) date) breath, no unknown) lightheadedness or passing out, no nausea, no vomiting. (unknown) (no (unknown) (unknown) sounds all 4 (units (u nknown) date) quadrants. No unknown) guarding or rebound, rigidity, no mass (unknown) (no (unknown) (unknown) tablet vomiting (units (unknown) date) #10 tabs unknown) (unknown) (no (unknown) (unknown) tenderness. She (units (unknown) date) is afebrile, not unknown) tachycardic or hypotensive. She appears quite (unknown) (no (unknown) (unknown) time. (units (unkno wn) date) unknown) (unknown) (no (unknown) (unknown) tobacco type: (units ( unknown) date) vaping unknown) (unknown) (no (unknown) (unknown) uncomfortable. (units (unknown) date) Plan for labs unknown) including CBC, CMP, lipase, hCG and urine sample. Result panel 371 (unknown) (no (unknown) (unknown) (no value) (units (unk nown) date) unknown) (unknown) (no (unknown) (unknown) (Diflucan) (units (unk nown) date) unknown) (unknown) (no (unknown) (unknown) (Dilaudid) (units (unk nown) date) unknown) (unknown) (no (unknown) (unknown) [id number] (units (unkno wn) date) unknown) (unknown) (no (unknown) (unknown) 10/27/22 05:33 (units (unknown) date) unknown) (unknown) (no (unknown) (unknown) 10/27/22 (units (unkno wn) date) unknown) (unknown) (no (unknown) (unknown) 05:21 (units (unkno wn) date) unknown) (unknown) (no (unknown) (unknown) 1 tab PO Q4-6H (units (unknown) date) PRN (Reason: pain) unknown) Qty: 10 0RF (unknown) (no (unknown) (unknown) 10 mg PO Q6H PRN (units (unknown) date) (Reason: pain) unknown) Qty: 14 0RF (unknown) (no (unknown) (unknown) 150 mg PO DAILY (units (unknown) date) Qty: 30 0RF unknown) (unknown) (no (unknown) (unknown) 150 mg PO Q48H (units (unknown) date) Qty: 2 4RF unknown) (unknown) (no (unknown) (unknown) 4 mg PO Q4-6H PRN (units (unknown) date) (Reason: pain) unknown) Qty: 20 0RF (unknown) (no (unknown) (unknown) 4 mg PO TID-QID (units (unknown) date) PRN (Reason: unknown) nausea and vomiting) Qty: 10 0RF (unknown) (no (unknown) (unknown) 5 mg PO Q4H PRN (units (unknown) date) (Reason: pain) unknown) Qty: 20 0RF (unknown) (no (unknown) (unknown) ABDOMEN: Soft, (units (unknown) date) right lower and unknown) upper quadrant tenderness. Normoactive bowel (unknown) (no (unknown) (unknown) Acne (-2015) (units [...] (unknown) (unknown) Blood Pressure (units (unknown) date) 137/85 10/27/22 unknown) 05:21 (unknown) (no (unknown) (unknown) Blood Pressure (units (unknown) date) 137 unknown) (unknown) (no (unknown) (unknown) CARDIOVASCULAR: (units (unknown) date) Regular rate and unknown) rhythm without murmurs, rubs or gallops. (unknown) (no (unknown) (unknown) CBC Auto Diff (units ( unknown) date) [Complete Blood unknown) Count AUTO DIFF] Stat (unknown) (no (unknown) (unknown) CMP (units (unkno wn) date) [Comprehensive unknown) Metabolic Panel] Stat (unknown) (no (unknown) (unknown) Chief Complaint: (units (unknown) date) Abdominal Pain unknown) (unknown) (no (unknown) (unknown) Chlamydia (units (unkn own) date) infection () unknown) (unknown) (no (unknown) (unknown) Course (units (unkno wn) date) unknown) (unknown) (no (unknown) (unknown) : 2000 (units (unknown) date) Acct:[id number] unknown) (unknown) (no (unknown) (unknown) Date of Service: (units (unknown) date) 10/27/22 unknown) (unknown) (no (unknown) (unknown) Departure (units [...] (unknown) ER Physician: (units ( unknown) date) Shanae Odell D.O. unknown) (unknown) (no (unknown) (unknown) EXTREMITIES: (units (u nknown) date) Normal range of unknown) motion, no clubbing or edema. Neurovascularly (unknown) (no (unknown) (unknown) Emergency Report (units (unknown) date) unknown) (unknown) (no (unknown) (unknown) Endometriosis (units ( unknown) date) () unknown) (unknown) (no (unknown) (unknown) Exam Narrative: (units (unknown) date) unknown) (unknown) (no (unknown) (unknown) Exam (units (unkno wn) date) unknown) (unknown) (no (unknown) (unknown) GENERAL: Alert (units (unknown) date) and oriented x unknown) three, moderate distress. (unknown) (no (unknown) (unknown) : No CVA (units (unk nown) date) tenderness unknown) (unknown) (no (unknown) (unknown) General (units (unkno wn) date) unknown) (unknown) (no (unknown) (unknown) HEENT: Head (units (un known) date) normocephalic, unknown) atraumatic, EOMI, pupils reactive, face symmetric, (unknown) (no (unknown) (unknown) HPI - Abdominal (units (unknown) date) Pain unknown) (unknown) (no (unknown) (unknown) HPI narrative: (units (unknown) date) unknown) (unknown) (no (unknown) (unknown) Heavy menstrual (units (unknown) date) period (-2018) unknown) (unknown) (no (unknown) (unknown) History of (units (unk nown) date) Present Illness unknown) (unknown) (no (unknown) (unknown) Hx of laparoscopy (units (unknown) date) (04/07/22) unknown) (unknown) (no (unknown) (unknown) Initial Vital (units ( unknown) date) Signs unknown) (unknown) (no (unknown) (unknown) Initial Vital (units ( unknown) date) Signs: unknown) (unknown) (no (unknown) (unknown) Irregular (units (unkn own) date) menstrual cycle unknown) () (unknown) (no (unknown) (unknown) [facility] (units (unknown) date) [address] [place] [address] unknown) [place] [address] (unknown) (no (unknown) (unknown) Agatha Abrams (units (unknown) date) , WELFARE ADMINISTRATOR [Primary unknown) Care Provider] (unknown) (no (unknown) (unknown) Ketorolac (units (unkn own) date) Tromethamine unknown) (Ketorolac 30 Mg/Ml Vial) 15 mg IV NOW ONE (unknown) (no (unknown) (unknown) Last Admin: (units (un known) date) 10/27/22 05:51 unknown) Dose: 15 mg (unknown) (no (unknown) (unknown) Last Admin: (units (un known) date) 10/27/22 05:52 unknown) Dose: 1,000 mls/hr (unknown) (no (unknown) (unknown) Limitations: no (units (unknown) date) limitations unknown) (unknown) (no (unknown) (unknown) Lipase Stat (units (un known) date) unknown) (unknown) (no (unknown) (unknown) Lymphangioma (units (u nknown) date) unknown) (unknown) (no (unknown) (unknown) MDM - Abdominal (units (unknown) date) Pain unknown) (unknown) (no (unknown) (unknown) MDM Narrative (units ( unknown) date) unknown) (unknown) (no (unknown) (unknown) Medical History (units (unknown) date) (Reviewed 10/27/22 unknown) @ 05:42 by Shanae Odell DO) (unknown) (no (unknown) (unknown) Medical decision (units (unknown) date) making narrative: unknown) (unknown) (no (unknown) (unknown) Medication (units (unk nown) date) Instructions unknown) Recorded (unknown) (no (unknown) (unknown) Mode of arrival: (units (unknown) date) Ambulatory unknown) (unknown) (no (unknown) (unknown) NECK: Supple, (units ( unknown) date) full range of unknown) motion (unknown) (no (unknown) (unknown) NEUROLOGICAL: (units ( unknown) date) Cranial nerves II unknown) through XII grossly intact. Moving all (unknown) (no (unknown) (unknown) Narrative (units (unkn own) date) unknown) (unknown) (no (unknown) (unknown) No Action (units (unkn own) date) unknown) (unknown) (no (unknown) (unknown) Opioids - (units (unkn own) date) Morphine Analogues unknown) Allergy Intermediate rash Verified 10/07/22 14:59 (unknown) (no (unknown) (unknown) Ordered: (units (unkno wn) date) unknown) (unknown) (no (unknown) (unknown) Orders (units (unkno wn) date) unknown) (unknown) (no (unknown) (unknown) Ovarian cyst (units (u nknown) date) unknown) (unknown) (no (unknown) (unknown) Oxygen Delivery (units (unknown) date) Method Room Air unknown) 10/27/22 05:21 (unknown) (no (unknown) (unknown) Oxygen Delivery (units (unknown) date) Method Room Air unknown) (unknown) (no (unknown) (unknown) Painful menstrual (units (unknown) date) periods () unknown) (unknown) (no (unknown) (unknown) Patient History (units (unknown) date) unknown) (unknown) (no (unknown) (unknown) Patient has had (units (unknown) date) prior tubo-ovarian unknown) abscess as well as hemorrhagic cyst in the (unknown) (no (unknown) (unknown) Patient: (units (unkno wn) date) Ade Vidales E unknown) MR#: [id number] (unknown) (no (unknown) (unknown) Test (units (unknown) date) Serum,Qual Stat unknown) (unknown) (no (unknown) (unknown) Prescriptions: (units (unknown) date) unknown) (unknown) (no (unknown) (unknown) Previous Rx's (units ( unknown) date) unknown) (unknown) (no (unknown) (unknown) Pulse Oximetry 99 (units (unknown) date) 10/27/22 05:21 unknown) (unknown) (no (unknown) (unknown) Pulse Oximetry 99 (units (unknown) date) unknown) (unknown) (no (unknown) (unknown) Pulse Rate 68 (units ( unknown) date) 10/27/22 05:21 unknown) (unknown) (no (unknown) (unknown) Pulse Rate 68 (units ( unknown) date) unknown) (unknown) (no (unknown) (unknown) RESPIRATORY: (units (u nknown) date) Breath sounds unknown) equal bilaterally, no wheezes rales or rhonchi. (unknown) (no (unknown) (unknown) ROS Unobtainable: (units (unknown) date) All systems unknown) reviewed + are unremarkable except as noted in HPI (unknown) (no (unknown) (unknown) Referrals: (units (unk nown) date) unknown) (unknown) (no (unknown) (unknown) Related Data (units (u nknown) date) unknown) (unknown) (no (unknown) (unknown) Repeat second (units ( unknown) date) dose 48 hrs after unknown) first dose. (unknown) (no (unknown) (unknown) Respiratory Rate (units (unknown) date) 18 10/27/22 05:21 unknown) (unknown) (no (unknown) (unknown) Respiratory Rate (units (unknown) date) 18 unknown) (unknown) (no (unknown) (unknown) Review of Systems (units (unknown) date) unknown) (unknown) (no (unknown) (unknown) Rx Instructions: (units (unknown) date) unknown) (unknown) (no (unknown) (unknown) S/P ACL (units (unkno wn) date) reconstruction unknown) (-06/08/21) (unknown) (no (unknown) (unknown) SKIN: Warm, dry, (units (unknown) date) no petechiae, no unknown) rashes or lesions. (unknown) (no (unknown) (unknown) She states she is (units (unknown) date) been stooling unknown) regularly with form soft stools. No diarrhea, (unknown) (no (unknown) (unknown) Signed By: (units (unk nown) date) unknown) (unknown) (no (unknown) (unknown) Smoking Status: (units (unknown) date) Current some day unknown) smoker (unknown) (no (unknown) (unknown) Social History (units (unknown) date) (Reviewed 10/27/22 unknown) @ 05:42 by Shanae Odell DO) (unknown) (no (unknown) (unknown) Sodium Chloride (units (unknown) date) (Normal Saline unknown) 0.9%) 1,000 mls @ 1,000 mls/hr IV BOLUS ONE (unknown) (no (unknown) (unknown) Source: patient (units (unknown) date) unknown) (unknown) (no (unknown) (unknown) Stated Complaint: (units (unknown) date) abd pain unknown) (unknown) (no (unknown) (unknown) Stop: 10/27/22 (units (unknown) date) 05:34 unknown) (unknown) (no (unknown) (unknown) Stop: 10/27/22 (units (unknown) date) 06:32 unknown) (unknown) (no (unknown) (unknown) Substance Use (units ( unknown) date) Type: does not use unknown) (unknown) (no (unknown) (unknown) Surgical History (units (unknown) date) (Reviewed 10/27/22 unknown) @ 05:42 by Shanae Odell DO) (unknown) (no (unknown) (unknown) TOA (tubo-ovarian (units (unknown) date) abscess) unknown) (06/28/21) (unknown) (no (unknown) (unknown) Temperature 97 F (units (unknown) date) L 10/27/22 05:21 unknown) (unknown) (no (unknown) (unknown) Temperature 97 F (units (unknown) date) L unknown) (unknown) (no (unknown) (unknown) This is a (units (unkn own) date) 21-year-old female unknown) who presents with acute on chronic or (unknown) (no (unknown) (unknown) This is a (units (unkn own) date) 21-year-old female unknown) with history of prior tubo-ovarian abscess with (unknown) (no (unknown) (unknown) Time Seen by (units (u nknown) date) Provider: 10/27/22 unknown) 05:18 (unknown) (no (unknown) (unknown) US abdomen (units (unk nown) date) limited Stat unknown) (unknown) (no (unknown) (unknown) US pelvic (units (unkn own) date) complete Stat unknown) (unknown) (no (unknown) (unknown) Vital Signs - 8 (units (unknown) date) hr unknown) (unknown) (no (unknown) (unknown) Vital Signs (units (un known) date) unknown) (unknown) (no (unknown) (unknown) Vital signs: (units (u nknown) date) unknown) (unknown) (no (unknown) (unknown) a muscle it has (units (unknown) date) been slowly unknown) increasing over time. She went to work out last (unknown) (no (unknown) (unknown) accompanied by (units (unknown) date) her mother today. unknown) Patient is following with JORDAN Lacey. (unknown) (no (unknown) (unknown) alcohol intake (units (unknown) date) frequency: unknown) holidays/special occasions only (unknown) (no (unknown) (unknown) alcohol intake: (units (unknown) date) current unknown) (unknown) (no (unknown) (unknown) amoxicillin (units (un known) date) AdvReac Vomiting unknown) Verified 10/07/22 15:00 (unknown) (no (unknown) (unknown) and below (units (unkn own) date) unknown) (unknown) (no (unknown) (unknown) atypical. She is (units (unknown) date) denying any flank unknown) pain. Patient denies any other surgeries (unknown) (no (unknown) (unknown) besides her right (units (unknown) date) fallopian tube unknown) removal. She has allergies to morphine, (unknown) (no (unknown) (unknown) clindamycin HCl (units (unknown) date) 150 mg capsule 150 unknown) mg PO DAILY #30 caps 03/17/22 (unknown) (no (unknown) (unknown) clindamycin HCl (units (unknown) date) 150 mg capsule unknown) (unknown) (no (unknown) (unknown) constipation, no (units (unknown) date) black or bloody unknown) stools. She denies dysuria, urgency or (unknown) (no (unknown) (unknown) different as it is (units (unknown) date) right-sided but unknown) also goes to the right upper abdomen which is (unknown) (no (unknown) (unknown) doxycycline (units (un known) date) AdvReac unknown) Intermediate vomitt Verified 10/07/22 14:59 (unknown) (no (unknown) (unknown) doxycycline and (units (unknown) date) amoxicillin. No unknown) tobacco, alcohol or illicit. She is (unknown) (no (unknown) (unknown) extremities (units (un known) date) unknown) (unknown) (no (unknown) (unknown) fluconazole 150 (units (unknown) date) mg tablet 150 mg unknown) PO Q48H 2 doses #2 tabs 08/31/22 (unknown) (no (unknown) (unknown) fluconazole (units (un known) date) [Diflucan] 150 mg unknown) tablet (unknown) (no (unknown) (unknown) for evaluation (units (unknown) date) and this was unknown) delayed by scheduling circumstances and has been (unknown) (no (unknown) (unknown) frequency. No (units ( unknown) date) vaginal bleeding unknown) or discharge. Patient states this feels (unknown) (no (unknown) (unknown) household (units (unkn own) date) members: friend(s) unknown) (unknown) (no (unknown) (unknown) hydrocodone 5 (units ( unknown) date) mg-acetaminophen unknown) 325 1 tab PO Q4-6H PRN pain #10 tabs 06/07/22 (unknown) (no (unknown) (unknown) hydrocodone-aceta (units (unknown) date) minophen 5-325 mg unknown) tablet (unknown) (no (unknown) (unknown) hydromorphone 4 (units (unknown) date) mg tablet 4 mg PO unknown) Q4-6H PRN pain #20 tabs 04/08/22 (unknown) (no (unknown) (unknown) hydromorphone (units ( unknown) date) [Dilaudid] 4 mg unknown) tablet (unknown) (no (unknown) (unknown) intact (units (unkno wn) date) unknown) (unknown) (no (unknown) (unknown) ketorolac 10 mg (units (unknown) date) tablet 10 mg PO unknown) Q6H PRN pain #14 tabs 06/07/22 (unknown) (no (unknown) (unknown) ketorolac 10 mg (units (unknown) date) tablet unknown) (unknown) (no (unknown) (unknown) lower pelvic (units (u nknown) date) discomfort about 2 unknown) or 3 days ago she thought she might have pulled (unknown) (no (unknown) (unknown) mg tablet (units (unkn own) date) unknown) (unknown) (no (unknown) (unknown) moist mucous (units (u nknown) date) membranes unknown) (unknown) (no (unknown) (unknown) night and that (units (unknown) date) made things worse. unknown) She denies fevers or chills, no chest pain or (unknown) (no (unknown) (unknown) obtaining CT but (units (unknown) date) felt be more unknown) appropriate to evaluate with ultrasound at this (unknown) (no (unknown) (unknown) ondansetron 4 mg (units (unknown) date) disintegrating 4 unknown) mg PO TID-QID PRN nausea and 06/07/22 (unknown) (no (unknown) (unknown) ondansetron 4 mg (units (unknown) date) tablet,disintegrat unknown) ing (unknown) (no (unknown) (unknown) oxycodone 5 mg (units (unknown) date) tablet 5 mg PO Q4H unknown) PRN pain #20 tabs 04/07/22 (unknown) (no (unknown) (unknown) oxycodone 5 mg (units (unknown) date) tablet unknown) (unknown) (no (unknown) (unknown) past. Plan for (units (unknown) date) fluids, pain unknown) medication, ultrasound and reassessment. Discussed (unknown) (no (unknown) (unknown) pelvic/abdominal (units (unknown) date) pain. On exam unknown) patient has right upper and lower quadrant (unknown) (no (unknown) (unknown) rescheduled for (units (unknown) date) later in the unknown) month. Patient states she started having some (unknown) (no (unknown) (unknown) salpingectomy on (units (unknown) date) the right. Patient unknown) had surgery scheduled for ex lap with OBGYN (unknown) (no (unknown) (unknown) shortness of (units (u nknown) date) breath, no unknown) lightheadedness or passing out, no nausea, no vomiting. (unknown) (no (unknown) (unknown) sounds all 4 (units (u nknown) date) quadrants. No unknown) guarding or rebound, rigidity, no mass (unknown) (no (unknown) (unknown) tablet vomiting (units (unknown) date) #10 tabs unknown) (unknown) (no (unknown) (unknown) tenderness. She (units (unknown) date) is afebrile, not unknown) tachycardic or hypotensive. She appears quite (unknown) (no (unknown) (unknown) time. Patient (units ( unknown) date) signed out to Dr. herron) Butch while awaiting results. (unknown) (no (unknown) (unknown) tobacco type: (units ( unknown) date) vaping unknown) (unknown) (no (unknown) (unknown) uncomfortable. (units (unknown) date) Plan for labs unknown) including CBC, CMP, lipase, hCG and urine sample. Result panel 372 (unknown) (no date) (unknown) (unknown) 0 /ul (unkn own) (unknown) (no date) (unknown) (unknown) 0.7 % (unkn own) (unknown) (no date) (unknown) (unknown) 12.7 g/dl (unkn own) (unknown) (no date) (unknown) (unknown) 14.3 % (unkn own) (unknown) (no date) (unknown) (unknown) 1900 /ul (unkn own) (unknown) (no date) (unknown) (unknown) 2.5 % (unkn own) (unknown) (no date) (unknown) (unknown) 200 /ul (unkn own) (unknown) (no date) (unknown) (unknown) 28.8 % (unkn own) (unknown) (no date) (unknown) (unknown) 29.4 pg (unkn own) (unknown) (no date) (unknown) (unknown) 304 x10 3/ul (unkn own) (unknown) (no date) (unknown) (unknown) 34.0 % (unkn own) (unknown) (no date) (unknown) (unknown) 37.3 % (unkn own) (unknown) (no date) (unknown) (unknown) 3900 /ul (unkn own) (unknown) (no date) (unknown) (unknown) 4.32 x10 6/ul (unkn own) (unknown) (no date) (unknown) (unknown) 58.4 % (unkn own) (unknown) (no date) (unknown) (unknown) 6.7 x10 3/ul (unkn own) (unknown) (no date) (unknown) (unknown) 600 /ul (unkn own) (unknown) (no date) (unknown) (unknown) 86.4 fl (unkn own) (unknown) (no date) (unknown) (unknown) 9.6 % (unkn own) Result panel 373 (unknown) (no date) (unknown) (unknown) > 60 ml/min (unkn own) (unknown) (no date) (unknown) (unknown) > 60 ml/min (unkn own) (unknown) (no date) (unknown) (unknown) 0.67 mg/dl (unkn own) (unknown) (no date) (unknown) (unknown) 0.7 mg/dl (unkn own) (unknown) (no date) (unknown) (unknown) 1.5 (units unknown) (unknown) (unknown) (no date) (unknown) (unknown) 103 mmol/l (unkn own) (unknown) (no date) (unknown) (unknown) 104 u/l (unkn own) (unknown) (no date) (unknown) (unknown) 12 mg/dl (unkn own) (unknown) (no date) (unknown) (unknown) 135 mmol/l (unkn own) (unknown) (no date) (unknown) (unknown) 17.9 (units unknown) (unknown) (unknown) (no date) (unknown) (unknown) 2.6 g/dl (unkn own) (unknown) (no date) (unknown) (unknown) 26 mmol/l (unkn own) (unknown) (no date) (unknown) (unknown) 27 iu/l (unkn own) (unknown) (no date) (unknown) (unknown) 3.7 mmol/l (unkn own) (unknown) (no date) (unknown) (unknown) 3.9 g/dl (unkn own) (unknown) (no date) (unknown) (unknown) 30 iu/l (unkn own) (unknown) (no date) (unknown) (unknown) 6.5 g/dl (unkn own) (unknown) (no date) (unknown) (unknown) 8.6 mg/dl (unkn own) (unknown) (no date) (unknown) (unknown) 80 u/l (unkn own) (unknown) (no date) (unknown) (unknown) 83 mg/dl (unkn own) (unknown) (no date) (unknown) (unknown) 83 mg/dl (unkn own) Result panel 374 (unknown) (no (unknown) (unknown) (no value) (units (unk nown) date) unknown) (unknown) (no (unknown) (unknown) (Diflucan) (units (unk nown) date) unknown) (unknown) (no (unknown) (unknown) (Dilaudid) (units (unk nown) date) unknown) (unknown) (no (unknown) (unknown) [id number] (units (unkno wn) date) unknown) (unknown) (no (unknown) (unknown) 10/27/22 05:33 (units (unknown) date) unknown) (unknown) (no (unknown) (unknown) 10/27/22 (units (unkno wn) date) unknown) (unknown) (no (unknown) (unknown) 05:21 (units (unkno wn) date) unknown) (unknown) (no (unknown) (unknown) 1 tab PO Q4-6H (units (unknown) date) PRN (Reason: pain) unknown) Qty: 10 0RF (unknown) (no (unknown) (unknown) 10 mg PO Q6H PRN (units (unknown) date) (Reason: pain) unknown) Qty: 14 0RF (unknown) (no (unknown) (unknown) 150 mg PO DAILY (units (unknown) date) Qty: 30 0RF unknown) (unknown) (no (unknown) (unknown) 150 mg PO Q48H (units (unknown) date) Qty: 2 4RF unknown) (unknown) (no (unknown) (unknown) 4 mg PO Q4-6H PRN (units (unknown) date) (Reason: pain) unknown) Qty: 20 0RF (unknown) (no (unknown) (unknown) 4 mg PO TID-QID (units (unknown) date) PRN (Reason: unknown) nausea and vomiting) Qty: 10 0RF (unknown) (no (unknown) (unknown) 5 mg PO Q4H PRN (units (unknown) date) (Reason: pain) unknown) Qty: 20 0RF (unknown) (no (unknown) (unknown) ABDOMEN: Soft, (units (unknown) date) right lower and unknown) upper quadrant tenderness. Normoactive bowel (unknown) (no (unknown) (unknown) Acne (-2016) (units [...] (unknown) (unknown) Blood Pressure (units (unknown) date) 137/85 10/27/22 unknown) 05:21 (unknown) (no (unknown) (unknown) Blood Pressure (units (unknown) date) 137 unknown) (unknown) (no (unknown) (unknown) CARDIOVASCULAR: (units (unknown) date) Regular rate and unknown) rhythm without murmurs, rubs or gallops. (unknown) (no (unknown) (unknown) CBC Auto Diff (units ( unknown) date) [Complete Blood unknown) Count AUTO DIFF] Stat (unknown) (no (unknown) (unknown) CMP (units (unkno wn) date) [Comprehensive unknown) Metabolic Panel] Stat (unknown) (no (unknown) (unknown) Chief Complaint: (units (unknown) date) Abdominal Pain unknown) (unknown) (no (unknown) (unknown) Chlamydia (units (unkn own) date) infection () unknown) (unknown) (no (unknown) (unknown) Course (units (unkno wn) date) unknown) (unknown) (no (unknown) (unknown) : 2000 (units (unknown) date) Acct:[id number] unknown) (unknown) (no (unknown) (unknown) Date of Service: (units (unknown) date) 10/27/22 unknown) (unknown) (no (unknown) (unknown) Departure (units [...] D.O. unknown) (unknown) (no (unknown) (unknown) EXTREMITIES: (units (u nknown) date) Normal range of unknown) motion, no clubbing or edema. Neurovascularly (unknown) (no (unknown) (unknown) Emergency Report (units (unknown) date) unknown) (unknown) (no (unknown) (unknown) Endometriosis (units ( unknown) date) () unknown) (unknown) (no (unknown) (unknown) Exam Narrative: (units (unknown) date) unknown) (unknown) (no (unknown) (unknown) Exam (units (unkno wn) date) unknown) (unknown) (no (unknown) (unknown) GENERAL: Alert (units (unknown) date) and oriented x unknown) three, moderate distress. (unknown) (no (unknown) (unknown) : No CVA (units (unk nown) date) tenderness unknown) (unknown) (no (unknown) (unknown) General (units (unkno wn) date) unknown) (unknown) (no (unknown) (unknown) HEENT: Head (units (un known) date) normocephalic, unknown) atraumatic, EOMI, pupils reactive, face symmetric, (unknown) (no (unknown) (unknown) HPI - Abdominal (units (unknown) date) Pain unknown) (unknown) (no (unknown) (unknown) HPI narrative: (units (unknown) date) unknown) (unknown) (no (unknown) (unknown) Heavy menstrual (units (unknown) date) period (-2018) unknown) (unknown) (no (unknown) (unknown) History of (units (unk nown) date) Present Illness unknown) (unknown) (no (unknown) (unknown) Hx of laparoscopy (units (unknown) date) (04/07/22) unknown) (unknown) (no (unknown) (unknown) Initial Vital (units ( unknown) date) Signs unknown) (unknown) (no (unknown) (unknown) Initial Vital (units ( unknown) date) Signs: unknown) (unknown) (no (unknown) (unknown) Irregular (units (unkn own) date) menstrual cycle unknown) () (unknown) (no (unknown) (unknown) 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 [Primary unknown) Care Provider] (unknown) (no (unknown) (unknown) Ketorolac (units (unkn own) date) Tromethamine unknown) (Ketorolac 30 Mg/Ml Vial) 15 mg IV NOW ONE (unknown) (no (unknown) (unknown) Last Admin: (units (un known) date) 10/27/22 05:51 unknown) Dose: 15 mg (unknown) (no (unknown) (unknown) Last Admin: (units (un known) date) 10/27/22 05:52 unknown) Dose: 1,000 mls/hr (unknown) (no (unknown) (unknown) Limitations: no (units (unknown) date) limitations unknown) (unknown) (no (unknown) (unknown) Lipase Stat (units (un known) date) unknown) (unknown) (no (unknown) (unknown) Lymphangioma (units (u nknown) date) unknown) (unknown) (no (unknown) (unknown) MDM - Abdominal (units (unknown) date) Pain unknown) (unknown) (no (unknown) (unknown) MDM Narrative (units ( unknown) date) unknown) (unknown) (no (unknown) (unknown) Medical History (units (unknown) date) (Reviewed 10/27/22 unknown) @ 05:42 by Shanae Odell DO) (unknown) (no (unknown) (unknown) Medical decision (units (unknown) date) making narrative: unknown) (unknown) (no (unknown) (unknown) Medication (units (unk nown) date) Instructions unknown) Recorded (unknown) (no (unknown) (unknown) Mode of arrival: (units (unknown) date) Ambulatory unknown) (unknown) (no (unknown) (unknown) NECK: Supple, (units ( unknown) date) full range of unknown) motion (unknown) (no (unknown) (unknown) NEUROLOGICAL: (units ( unknown) date) Cranial nerves II unknown) through XII grossly intact. Moving all (unknown) (no (unknown) (unknown) Narrative (units (unkn own) date) unknown) (unknown) (no (unknown) (unknown) No Action (units (unkn own) date) unknown) (unknown) (no (unknown) (unknown) Opioids - (units (unkn own) date) Morphine Analogues unknown) Allergy Intermediate rash Verified 10/07/22 14:59 (unknown) (no (unknown) (unknown) Ordered: (units (unkno wn) date) unknown) (unknown) (no (unknown) (unknown) Orders (units (unkno wn) date) unknown) (unknown) (no (unknown) (unknown) Ovarian cyst (units (u nknown) date) unknown) (unknown) (no (unknown) (unknown) Oxygen Delivery (units (unknown) date) Method Room Air unknown) 10/27/22 05:21 (unknown) (no (unknown) (unknown) Oxygen Delivery (units (unknown) date) Method Room Air unknown) (unknown) (no (unknown) (unknown) Painful menstrual (units (unknown) date) periods (-2020) unknown) (unknown) (no (unknown) (unknown) Patient History (units (unknown) date) unknown) (unknown) (no (unknown) (unknown) Patient has had (units (unknown) date) prior tubo-ovarian unknown) abscess as well as hemorrhagic cyst in the (unknown) (no (unknown) (unknown) Patient: (units (unkno wn) date) Ade Vidales E unknown) MR#: [id number] (unknown) (no (unknown) (unknown) Test (units (unknown) date) Serum,Qual Stat unknown) (unknown) (no (unknown) (unknown) Prescriptions: (units (unknown) date) unknown) (unknown) (no (unknown) (unknown) Previous Rx's (units ( unknown) date) unknown) (unknown) (no (unknown) (unknown) Pulse Oximetry 99 (units (unknown) date) 10/27/22 05:21 unknown) (unknown) (no (unknown) (unknown) Pulse Oximetry 99 (units (unknown) date) unknown) (unknown) (no (unknown) (unknown) Pulse Rate 68 (units ( unknown) date) 10/27/22 05:21 unknown) (unknown) (no (unknown) (unknown) Pulse Rate 68 (units ( unknown) date) unknown) (unknown) (no (unknown) (unknown) RESPIRATORY: (units (u nknown) date) Breath sounds unknown) equal bilaterally, no wheezes rales or rhonchi. (unknown) (no (unknown) (unknown) ROS Unobtainable: (units (unknown) date) All systems unknown) reviewed + are unremarkable except as noted in HPI (unknown) (no (unknown) (unknown) Referrals: (units (unk nown) date) unknown) (unknown) (no (unknown) (unknown) Related Data (units (u nknown) date) unknown) (unknown) (no (unknown) (unknown) Repeat second (units ( unknown) date) dose 48 hrs after unknown) first dose. (unknown) (no (unknown) (unknown) Respiratory Rate (units (unknown) date) 18 10/27/22 05:21 unknown) (unknown) (no (unknown) (unknown) Respiratory Rate (units (unknown) date) 18 unknown) (unknown) (no (unknown) (unknown) Review of Systems (units (unknown) date) unknown) (unknown) (no (unknown) (unknown) Rx Instructions: (units (unknown) date) unknown) (unknown) (no (unknown) (unknown) S/P ACL (units (unkno wn) date) reconstruction unknown) (-06/08/21) (unknown) (no (unknown) (unknown) SKIN: Warm, dry, (units (unknown) date) no petechiae, no unknown) rashes or lesions. (unknown) (no (unknown) (unknown) She states she is (units (unknown) date) been stooling unknown) regularly with form soft stools. No diarrhea, (unknown) (no (unknown) (unknown) Signed By: (units (unk nown) date) unknown) (unknown) (no (unknown) (unknown) Smoking Status: (units (unknown) date) Current some day unknown) smoker (unknown) (no (unknown) (unknown) Social History (units (unknown) date) (Reviewed 10/27/22 unknown) @ 05:42 by Shanae Odell DO) (unknown) (no (unknown) (unknown) Sodium Chloride (units (unknown) date) (Normal Saline unknown) 0.9%) 1,000 mls @ 1,000 mls/hr IV BOLUS ONE (unknown) (no (unknown) (unknown) Source: patient (units (unknown) date) unknown) (unknown) (no (unknown) (unknown) Stated Complaint: (units (unknown) date) abd pain unknown) (unknown) (no (unknown) (unknown) Stop: 10/27/22 (units (unknown) date) 05:34 unknown) (unknown) (no (unknown) (unknown) Stop: 10/27/22 (units (unknown) date) 06:32 unknown) (unknown) (no (unknown) (unknown) Substance Use (units ( unknown) date) Type: does not use unknown) (unknown) (no (unknown) (unknown) Surgical History (units (unknown) date) (Reviewed 10/27/22 unknown) @ 05:42 by Shanae Odell DO) (unknown) (no (unknown) (unknown) TOA (tubo-ovarian (units (unknown) date) abscess) unknown) (-06/28/21) (unknown) (no (unknown) (unknown) Temperature 97 F (units (unknown) date) L 10/27/22 05:21 unknown) (unknown) (no (unknown) (unknown) Temperature 97 F (units (unknown) date) L unknown) (unknown) (no (unknown) (unknown) This is a (units (unkn own) date) 21-year-old female unknown) who presents with acute on chronic or (unknown) (no (unknown) (unknown) This is a (units (unkn own) date) 21-year-old female unknown) with history of prior tubo-ovarian abscess with (unknown) (no (unknown) (unknown) Time Seen by (units (u nknown) date) Provider: 10/27/22 unknown) 05:18 (unknown) (no (unknown) (unknown) US abdomen (units (unk nown) date) limited Stat unknown) (unknown) (no (unknown) (unknown) US pelvic (units (unkn own) date) complete Stat unknown) (unknown) (no (unknown) (unknown) Vital Signs - 8 (units (unknown) date) hr unknown) (unknown) (no (unknown) (unknown) Vital Signs (units (un known) date) unknown) (unknown) (no (unknown) (unknown) Vital signs: (units (u nknown) date) unknown) (unknown) (no (unknown) (unknown) a muscle it has (units (unknown) date) been slowly unknown) increasing over time. She went to work out last (unknown) (no (unknown) (unknown) accompanied by (units (unknown) date) her mother today. unknown) Patient is following with JORDAN Lacey. (unknown) (no (unknown) (unknown) alcohol intake (units (unknown) date) frequency: unknown) holidays/special occasions only (unknown) (no (unknown) (unknown) alcohol intake: (units (unknown) date) current unknown) (unknown) (no (unknown) (unknown) amoxicillin (units (un known) date) AdvReac Vomiting unknown) Verified 10/07/22 15:00 (unknown) (no (unknown) (unknown) and below (units (unkn own) date) unknown) (unknown) (no (unknown) (unknown) atypical. She is (units (unknown) date) denying any flank unknown) pain. Patient denies any other surgeries (unknown) (no (unknown) (unknown) besides her right (units (unknown) date) fallopian tube unknown) removal. She has allergies to morphine, (unknown) (no (unknown) (unknown) clindamycin HCl (units (unknown) date) 150 mg capsule 150 unknown) mg PO DAILY #30 caps 03/17/22 (unknown) (no (unknown) (unknown) clindamycin HCl (units (unknown) date) 150 mg capsule unknown) (unknown) (no (unknown) (unknown) constipation, no (units (unknown) date) black or bloody unknown) stools. She denies dysuria, urgency or (unknown) (no (unknown) (unknown) different as it is (units (unknown) date) right-sided but unknown) also goes to the right upper abdomen which is (unknown) (no (unknown) (unknown) doxycycline (units (un known) date) AdvReac unknown) Intermediate vomitt Verified 10/07/22 14:59 (unknown) (no (unknown) (unknown) doxycycline and (units (unknown) date) amoxicillin. No unknown) tobacco, alcohol or illicit. She is (unknown) (no (unknown) (unknown) extremities (units (un known) date) unknown) (unknown) (no (unknown) (unknown) fluconazole 150 (units (unknown) date) mg tablet 150 mg unknown) PO Q48H 2 doses #2 tabs 08/31/22 (unknown) (no (unknown) (unknown) fluconazole (units (un known) date) [Diflucan] 150 mg unknown) tablet (unknown) (no (unknown) (unknown) for evaluation (units (unknown) date) and this was unknown) delayed by scheduling circumstances and has been (unknown) (no (unknown) (unknown) frequency. No (units ( unknown) date) vaginal bleeding unknown) or discharge. Patient states this feels (unknown) (no (unknown) (unknown) household (units (unkn own) date) members: friend(s) unknown) (unknown) (no (unknown) (unknown) hydrocodone 5 (units ( unknown) date) mg-acetaminophen unknown) 325 1 tab PO Q4-6H PRN pain #10 tabs 06/07/22 (unknown) (no (unknown) (unknown) hydrocodone-aceta (units (unknown) date) minophen 5-325 mg unknown) tablet (unknown) (no (unknown) (unknown) hydromorphone 4 (units (unknown) date) mg tablet 4 mg PO unknown) Q4-6H PRN pain #20 tabs 04/08/22 (unknown) (no (unknown) (unknown) hydromorphone (units ( unknown) date) [Dilaudid] 4 mg unknown) tablet (unknown) (no (unknown) (unknown) intact (units (unkno wn) date) unknown) (unknown) (no (unknown) (unknown) ketorolac 10 mg (units (unknown) date) tablet 10 mg PO unknown) Q6H PRN pain #14 tabs 06/07/22 (unknown) (no (unknown) (unknown) ketorolac 10 mg (units (unknown) date) tablet unknown) (unknown) (no (unknown) (unknown) lower pelvic (units (u nknown) date) discomfort about 2 unknown) or 3 days ago she thought she might have pulled (unknown) (no (unknown) (unknown) mg tablet (units (unkn own) date) unknown) (unknown) (no (unknown) (unknown) moist mucous (units (u nknown) date) membranes unknown) (unknown) (no (unknown) (unknown) night and that (units (unknown) date) made things worse. unknown) She denies fevers or chills, no chest pain or (unknown) (no (unknown) (unknown) obtaining CT but (units (unknown) date) felt be more unknown) appropriate to evaluate with ultrasound at this (unknown) (no (unknown) (unknown) ondansetron 4 mg (units (unknown) date) disintegrating 4 unknown) mg PO TID-QID PRN nausea and 06/07/22 (unknown) (no (unknown) (unknown) ondansetron 4 mg (units (unknown) date) tablet,disintegrat unknown) ing (unknown) (no (unknown) (unknown) oxycodone 5 mg (units (unknown) date) tablet 5 mg PO Q4H unknown) PRN pain #20 tabs 04/07/22 (unknown) (no (unknown) (unknown) oxycodone 5 mg (units (unknown) date) tablet unknown) (unknown) (no (unknown) (unknown) past. Plan for (units (unknown) date) fluids, pain unknown) medication, ultrasound and reassessment. Discussed (unknown) (no (unknown) (unknown) pelvic/abdominal (units (unknown) date) pain. On exam unknown) patient has right upper and lower quadrant (unknown) (no (unknown) (unknown) rescheduled for (units (unknown) date) later in the unknown) month. Patient states she started having some (unknown) (no (unknown) (unknown) salpingectomy on (units (unknown) date) the right. Patient unknown) had surgery scheduled for ex lap with OBGYN (unknown) (no (unknown) (unknown) shortness of (units (u nknown) date) breath, no unknown) lightheadedness or passing out, no nausea, no vomiting. (unknown) (no (unknown) (unknown) sounds all 4 (units (u nknown) date) quadrants. No unknown) guarding or rebound, rigidity, no mass (unknown) (no (unknown) (unknown) tablet vomiting (units (unknown) date) #10 tabs unknown) (unknown) (no (unknown) (unknown) tenderness. She (units (unknown) date) is afebrile, not unknown) tachycardic or hypotensive. She appears quite (unknown) (no (unknown) (unknown) time. Patient (units ( unknown) date) signed out to Dr. marta Rae while awaiting results. (unknown) (no (unknown) (unknown) tobacco type: (units ( unknown) date) vaping unknown) (unknown) (no (unknown) (unknown) uncomfortable. (units (unknown) date) Plan for labs unknown) including CBC, CMP, lipase, hCG and urine sample. Result panel 375 (unknown) (no (unknown) (unknown) (no value) (units (unk nown) date) unknown) (unknown) (no (unknown) (unknown) <Electronically (units (unknown) date) signed by Tremaine Rae D.O.> (unknown) (no (unknown) (unknown) <Tremaine Rae, (units (unknown) date) DO - Last Filed: unknown) 10/27/22 19:18> (unknown) (no (unknown) (unknown) <Shanae Odell, (units (unknown) date) DO - Last Filed: unknown) 10/27/22 06:41> (unknown) (no (unknown) (unknown) (Diflucan) (units (unk nown) date) unknown) (unknown) (no (unknown) (unknown) (Dilaudid) (units (unk nown) date) unknown) (unknown) (no (unknown) (unknown) *If you do not (units (unknown) date) have a primary unknown) care provider please contact the [facility] (unknown) (no (unknown) (unknown) *Please continue (units (unknown) date) to take your unknown) regular medications as directed. (unknown) (no (unknown) (unknown) *Please follow up (units (unknown) date) with your primary unknown) care provider in 2-3 days, call for an (unknown) (no (unknown) (unknown) *Return to (units (unk nown) date) Emergency unknown) Department if you should have any new, worsening or (unknown) (no (unknown) (unknown) *What to do: (units (u nknown) date) unknown) (unknown) (no (unknown) (unknown) *You have been (units (unknown) date) diagnosed with unknown) [right lower quadrant ] (unknown) (no (unknown) (unknown) [id number] (units (unkno wn) date) unknown) (unknown) (no (unknown) (unknown) 10/27/22 10/27/22 (units (unknown) date) 10/27/22 unknown) Range/Units (unknown) (no (unknown) (unknown) 10/27/22 05:45 (units (unknown) date) unknown) (unknown) (no (unknown) (unknown) 10/27/22 1918 (units ( unknown) date) unknown) (unknown) (no (unknown) (unknown) 10/27/22 (units (unkno wn) date) unknown) (unknown) (no (unknown) (unknown) 05:21 (units (unkno wn) date) unknown) (unknown) (no (unknown) (unknown) 05:45 05:45 05:45 (units (unknown) date) unknown) (unknown) (no (unknown) (unknown) 1 tab PO Q4-6H (units (unknown) date) PRN (Reason: pain) unknown) Qty: 10 0RF (unknown) (no (unknown) (unknown) 1 tab PO Q4-6H (units (unknown) date) PRN (Reason: pain) unknown) Qty: 20 0RF (unknown) (no (unknown) (unknown) 10 mg PO Q6H PRN (units (unknown) date) (Reason: pain) unknown) Qty: 14 0RF (unknown) (no (unknown) (unknown) 150 mg PO DAILY (units (unknown) date) Qty: 30 0RF unknown) (unknown) (no (unknown) (unknown) 150 mg PO Q48H (units (unknown) date) Qty: 2 4RF unknown) (unknown) (no (unknown) (unknown) 4 mg PO Q4-6H PRN (units (unknown) date) (Reason: pain) unknown) Qty: 20 0RF (unknown) (no (unknown) (unknown) 4 mg PO TID-QID (units (unknown) date) PRN (Reason: unknown) nausea and vomiting) Qty: 10 0RF (unknown) (no (unknown) (unknown) 5 mg PO Q4H PRN (units (unknown) date) (Reason: pain) unknown) Qty: 20 0RF (unknown) (no (unknown) (unknown) ABDOMEN: Soft, (units (unknown) date) right lower and unknown) upper quadrant tenderness. Normoactive bowel (unknown) (no (unknown) (unknown) ALT 30 (<35) IU/L (units (unknown) date) unknown) (unknown) (no (unknown) (unknown) AST 27 (14-36) (units (unknown) date) IU/L unknown) (unknown) (no (unknown) (unknown) Acne (-2016) (units (u nknown) date) unknown) (unknown) (no (unknown) (unknown) Activity (units (unkno wn) date) Restrictions/Addit unknown) ional Instructions: (unknown) (no (unknown) (unknown) Admin: 10/27/22 (units (unknown) date) 05:52 Dose: 1,000 unknown) mls/hr (unknown) (no (unknown) (unknown) Age/Sex: 21 / F (units (unknown) date) unknown) (unknown) (no (unknown) (unknown) Albumin 3.9 (units (un known) date) (3.5-5.0) g/dL unknown) (unknown) (no (unknown) (unknown) Albumin/Globulin (units (unknown) date) Ratio 1.5 unknown) (1.0-2.8) (unknown) (no (unknown) (unknown) Alcohol type: (units ( unknown) date) wine unknown) (unknown) (no (unknown) (unknown) Alkaline (units (unkno wn) date) Phosphatase 80 unknown) (38-126) U/L (unknown) (no (unknown) (unknown) Allergies (units (unkn own) date) unknown) (unknown) (no (unknown) (unknown) Allergy/AdvReac (units (unknown) date) Type Severity unknown) Reaction Status Date / Time (unknown) (no (unknown) (unknown) Anesthesia (units (unk nown) date) unknown) (unknown) (no (unknown) (unknown) At this time we (units (unknown) date) are still Pending unknown) results of imaging (unknown) (no (unknown) (unknown) At time of (units (unk nown) date) discharge there unknown) are no surgical findings on imaging, labs are within (unknown) (no (unknown) (unknown) BUN 12 (7-17) (units ( unknown) date) mg/dL unknown) (unknown) (no (unknown) (unknown) BUN/Creatinine (units (unknown) date) Ratio 17.9 (6-22) unknown) (unknown) (no (unknown) (unknown) Baso # (Auto) 0 (units (unknown) date) (0-100) /uL unknown) (unknown) (no (unknown) (unknown) Baso % (Auto) 0.7 (units (unknown) date) (0-2) % unknown) (unknown) (no (unknown) (unknown) Blood Pressure (units (unknown) date) 137/85 10/27/22 unknown) 05:21 (unknown) (no (unknown) (unknown) Blood Pressure (units (unknown) date) 137/85 unknown) (unknown) (no (unknown) (unknown) CARDIOVASCULAR: (units (unknown) date) Regular rate and unknown) rhythm without murmurs, rubs or gallops. (unknown) (no (unknown) (unknown) Calcium 8.6 (units [...] date) unknown) (unknown) (no (unknown) (unknown) Creatinine 0.67 (units (unknown) date) (0.52-1.04) mg/dL unknown) (unknown) (no (unknown) (unknown) : 2000 (units (unknown) date) Acct:[id number] unknown) (unknown) (no (unknown) (unknown) Date of Service: (units (unknown) date) 10/27/22 unknown) (unknown) (no (unknown) (unknown) Departure (units (unkn own) date) unknown) (unknown) (no (unknown) (unknown) Discharge Plan (units (unknown) date) unknown) (unknown) (no (unknown) (unknown) Discontinued (units (u nknown) date) Medications unknown) (unknown) (no (unknown) (unknown) Documented By: GC (units (unknown) date) unknown) (unknown) (no (unknown) (unknown) Documented By: KM (units (unknown) date) unknown) (unknown) (no (unknown) (unknown) ER Physician: (units ( unknown) date) Tremaine Rae D.O. unknown) (unknown) (no (unknown) (unknown) EXTREMITIES: (units (u nknown) date) Normal range of unknown) motion, no clubbing or edema. Neurovascularly (unknown) (no (unknown) (unknown) Emergency Report (units (unknown) date) unknown) (unknown) (no (unknown) (unknown) Endometriosis (units ( unknown) date) (-2020) unknown) (unknown) (no (unknown) (unknown) Eos # (Auto) 200 (units (unknown) date) (0-450) /uL unknown) (unknown) (no (unknown) (unknown) Eos % (Auto) 2.5 (units (unknown) date) (2-4) % unknown) (unknown) (no (unknown) (unknown) Estimated GFR > (units (unknown) date) 60 (>60) mL/min unknown) (unknown) (no (unknown) (unknown) Exam Narrative: (units (unknown) date) unknown) (unknown) (no (unknown) (unknown) Exam (units (unkno wn) date) unknown) (unknown) (no (unknown) (unknown) GENERAL: Alert (units (unknown) date) and oriented x unknown) three, moderate distress. (unknown) (no (unknown) (unknown) : No CVA (units (unk nown) date) tenderness unknown) (unknown) (no (unknown) (unknown) General (units (unkno wn) date) unknown) (unknown) (no (unknown) (unknown) Globulin 2.6 (units (u nknown) date) (1.7-4.1) g/dL unknown) (unknown) (no (unknown) (unknown) Glucose 83 (units (unk nown) date) (70-100) mg/dL unknown) (unknown) (no (unknown) (unknown) HEENT: Head (units (un known) date) normocephalic, unknown) atraumatic, EOMI, pupils reactive, face symmetric, (unknown) (no (unknown) (unknown) HPI - Abdominal (units (unknown) date) Pain unknown) (unknown) (no (unknown) (unknown) HPI narrative: (units (unknown) date) unknown) (unknown) (no (unknown) (unknown) Hct 37.3 (36-46) (units (unknown) date) % unknown) (unknown) (no (unknown) (unknown) Heavy menstrual (units (unknown) date) period (-2019) unknown) (unknown) (no (unknown) (unknown) Hgb 12.7 (units (unkno wn) date) (12.0-16.0) g/dL unknown) (unknown) (no (unknown) (unknown) History of (units (unk nown) date) Present Illness unknown) (unknown) (no (unknown) (unknown) Hx of laparoscopy (units (unknown) date) (04/07/22) unknown) (unknown) (no (unknown) (unknown) Hydromorphone HCl (units (unknown) date) (Hydromorphone 0.5 unknown) Mg Inj) 0.5 mg IV NOW ONE (unknown) (no (unknown) (unknown) Initial Vital (units ( unknown) date) Signs unknown) (unknown) (no (unknown) (unknown) Initial Vital (units ( unknown) date) Signs: unknown) (unknown) (no (unknown) (unknown) Instructions: DI (units (unknown) date) for Abdominal unknown) Pain-Adult (unknown) (no (unknown) (unknown) Irregular (units (unkn own) date) menstrual cycle unknown) () (unknown) (no (unknown) (unknown) [facility] (units (unknown) date) [address] [place] [address] unknown) [place] [address] (unknown) (no (unknown) (unknown) Agatha Abrams (units (unknown) date) , [employer] ADMINISTRATOR [Primary unknown) Care Provider] (unknown) (no (unknown) [...] (unknown) Last Admin: (units (un known) date) 10/27/22 05:51 unknown) Dose: 15 mg (unknown) (no (unknown) (unknown) Last Admin: (units (un known) date) 10/27/22 08:39 unknown) Dose: 0.5 mg (unknown) (no (unknown) (unknown) Last Infusion: (units (unknown) date) 10/27/22 06:55 unknown) Dose: 0 mls/hr (unknown) (no (unknown) (unknown) Limitations: no (units (unknown) date) limitations unknown) (unknown) (no (unknown) (unknown) Lipase 104 (units (unk nown) date) (23-300) U/L unknown) (unknown) (no (unknown) (unknown) Lymph # (Auto) (units (unknown) date) 1900 (5088-4477) unknown) /uL (unknown) (no (unknown) (unknown) Lymph % (Auto) (units (unknown) date) 28.8 (25-40) % unknown) (unknown) (no (unknown) (unknown) Lymphangioma (units (u nknown) date) unknown) (unknown) (no (unknown) (unknown) MCH 29.4 (26-34) (units (unknown) date) PG unknown) (unknown) (no (unknown) (unknown) MCHC 34.0 (30-36) (units (unknown) date) % unknown) (unknown) (no (unknown) (unknown) MCV 86.4 (80-100) (units (unknown) date) fL unknown) (unknown) (no (unknown) (unknown) MDM - Abdominal (units (unknown) date) Pain unknown) (unknown) (no (unknown) (unknown) MDM Narrative (units ( unknown) date) unknown) (unknown) (no (unknown) (unknown) Medical History (units (unknown) date) (Reviewed 10/27/22 unknown) @ 05:42 by Shanae Odell DO) (unknown) (no (unknown) (unknown) Medical decision (units (unknown) date) making narrative: unknown) (unknown) (no (unknown) (unknown) Medication (units (unk nown) date) Instructions unknown) Recorded (unknown) (no (unknown) (unknown) Mode of arrival: (units (unknown) date) Ambulatory unknown) (unknown) (no (unknown) (unknown) [place] # (Auto) 600 (units (unknown) date) (0-900) /uL unknown) (unknown) (no (unknown) (unknown) [place] % (Auto) 9.6 (units (unknown) date) (3-14) % unknown) (unknown) (no (unknown) (unknown) NECK: Supple, (units ( unknown) date) full range of unknown) motion (unknown) (no (unknown) (unknown) NEUROLOGICAL: (units ( unknown) date) Cranial nerves II unknown) through XII grossly intact. Moving all (unknown) (no (unknown) (unknown) Narrative (units (unkn own) date) unknown) (unknown) (no (unknown) (unknown) Neut # (Auto) (units ( unknown) date) 3900 (0166-2366) unknown) /uL (unknown) (no (unknown) (unknown) Neut % (Auto) (units ( unknown) date) 58.4 (50-75) % unknown) (unknown) (no (unknown) (unknown) New (units (unkno wn) date) unknown) (unknown) (no (unknown) (unknown) No Action (units (unkn own) date) unknown) (unknown) (no (unknown) (unknown) Opioids - (units (unkn own) date) Morphine Analogues unknown) Allergy Intermediate rash Verified 10/07/22 14:59 (unknown) (no (unknown) (unknown) Ordered: (units (unkno wn) date) unknown) (unknown) (no (unknown) (unknown) Orders (units (unkno wn) date) unknown) (unknown) (no (unknown) (unknown) Ovarian cyst (units (u nknown) date) unknown) (unknown) (no (unknown) (unknown) Oxygen Delivery (units (unknown) date) Method Room Air unknown) 10/27/22 05:21 (unknown) (no (unknown) (unknown) Oxygen Delivery (units (unknown) date) Method Room Air unknown) (unknown) (no (unknown) (unknown) Painful menstrual (units (unknown) date) periods () unknown) (unknown) (no (unknown) (unknown) Patient (units (unkno wn) date) Disposition: Home unknown) (unknown) (no (unknown) (unknown) Patient History (units (unknown) date) unknown) (unknown) (no (unknown) (unknown) Patient has had (units (unknown) date) prior tubo-ovarian unknown) abscess as well as hemorrhagic cyst in the (unknown) (no (unknown) (unknown) Patient: (units (unkno wn) date) Ade Vidales unknown) MR#: [id number] (unknown) (no (unknown) (unknown) Plt Count 304 (units ( unknown) date) (150-400) X103/uL unknown) [...] unknown) (unknown) (no (unknown) (unknown) Pulse Oximetry 99 (units (unknown) date) 10/27/22 05:21 unknown) (unknown) (no (unknown) (unknown) Pulse Oximetry 99 (units (unknown) date) unknown) (unknown) (no (unknown) (unknown) Pulse Rate 68 (units ( unknown) date) 10/27/22 05:21 unknown) (unknown) (no (unknown) (unknown) Pulse Rate 68 (units ( unknown) date) unknown) (unknown) (no (unknown) (unknown) RBC 4.32 (units (unkno wn) date) (4.0-5.2) X106/uL unknown) (unknown) (no (unknown) (unknown) RDW 14.3 (units (unkno wn) date) (11.6-14.8) % unknown) (unknown) (no (unknown) (unknown) RESPIRATORY: (units (u nknown) date) Breath sounds unknown) equal bilaterally, no wheezes rales or rhonchi. (unknown) (no (unknown) (unknown) ROS Unobtainable: (units (unknown) date) All systems unknown) reviewed + are unremarkable except as noted in HPI (unknown) (no (unknown) (unknown) Referrals: (units (unk nown) date) unknown) (unknown) (no (unknown) (unknown) Related Data (units (u nknown) date) unknown) (unknown) (no (unknown) (unknown) Repeat second (units ( unknown) date) dose 48 hrs after unknown) first dose. (unknown) (no (unknown) (unknown) Resource line at (units (unknown) date) [phone]. They unknown) will ask some questions about your medical (unknown) (no (unknown) (unknown) Respiratory Rate (units (unknown) date) 18 10/27/22 05:21 unknown) (unknown) (no (unknown) (unknown) Respiratory Rate (units (unknown) date) 18 unknown) (unknown) (no (unknown) (unknown) Review of Systems (units (unknown) date) unknown) (unknown) (no (unknown) (unknown) Right lower (units (un known) date) quadrant abdominal unknown) pain (unknown) (no (unknown) (unknown) Rx Instructions: (units (unknown) date) unknown) (unknown) (no (unknown) (unknown) S/P ACL (units (unkno wn) date) reconstruction unknown) (-06/08/21) (unknown) (no (unknown) (unknown) SKIN: Warm, dry, (units (unknown) date) no petechiae, no unknown) rashes or lesions. (unknown) (no (unknown) (unknown) Serum , (units (unknown) date) Qual Cancelled unknown) (unknown) (no (unknown) (unknown) She states she is (units (unknown) date) been stooling unknown) regularly with form soft stools. No diarrhea, (unknown) (no (unknown) (unknown) Signed By: (units (unk nown) date) unknown) (unknown) (no (unknown) (unknown) Smoking Status: (units (unknown) date) Current some day unknown) smoker (unknown) (no (unknown) (unknown) Social History (units (unknown) date) (Reviewed 10/27/22 unknown) @ 05:42 by Shanae C Mank, DO) (unknown) (no (unknown) (unknown) Sodium 135 L (units (u nknown) date) (137-145) mmol/L unknown) (unknown) (no (unknown) (unknown) Sodium Chloride (units (unknown) date) (Normal Saline unknown) 0.9%) 1,000 mls @ 1,000 mls/hr IV BOLUS ONE (unknown) (no (unknown) (unknown) Source: patient (units (unknown) date) unknown) (unknown) (no (unknown) (unknown) Stand Alone (units (un known) date) Forms: Patient unknown) Portal/API (unknown) (no (unknown) (unknown) Stated Complaint: (units (unknown) date) abd pain unknown) (unknown) (no (unknown) (unknown) Stop: 10/27/22 (units (unknown) date) 05:34 unknown) (unknown) (no (unknown) (unknown) Stop: 10/27/22 (units (unknown) date) 06:32 unknown) (unknown) (no (unknown) (unknown) Stop: 10/27/22 (units (unknown) date) 08:29 unknown) (unknown) (no (unknown) (unknown) Substance Use (units ( unknown) date) Type: does not use unknown) (unknown) (no (unknown) (unknown) Surgical History (units (unknown) date) (Reviewed 10/27/22 unknown) @ 05:42 by Shanae Odell DO) (unknown) (no (unknown) (unknown) TOA (tubo-ovarian (units (unknown) date) abscess) unknown) (-06/28/21) (unknown) (no (unknown) (unknown) Temperature 97 F (units (unknown) date) L 10/27/22 05:21 unknown) (unknown) (no (unknown) (unknown) Temperature 97 F (units (unknown) date) L unknown) (unknown) (no (unknown) (unknown) This is a (units (unkn own) date) 21-year-old female unknown) who presents with acute on chronic or (unknown) (no (unknown) (unknown) This is a (units (unkn own) date) 21-year-old female unknown) with history of prior tubo-ovarian abscess with (unknown) (no (unknown) (unknown) Time Seen by (units (u nknown) date) Provider: 10/27/22 unknown) 05:18 (unknown) (no (unknown) (unknown) Total Bilirubin (units (unknown) date) 0.7 (0.2-1.3) unknown) mg/dL (unknown) (no (unknown) (unknown) Total Protein 6.5 (units (unknown) date) (6.3-8.2) g/dL unknown) (unknown) (no (unknown) (unknown) Vital Signs - 8 (units (unknown) date) hr unknown) (unknown) (no (unknown) (unknown) Vital Signs (units (un known) date) unknown) (unknown) (no (unknown) (unknown) Vital signs: (units (u nknown) date) unknown) (unknown) (no (unknown) (unknown) WBC 6.7 (units (unkno wn) date) (4.5-11.0) X103/uL unknown) (unknown) (no (unknown) (unknown) Sushant Bryant, (units (unknown) date) [Physician] unknown) (unknown) (no (unknown) (unknown) [ ] New (units (unkno wn) date) medication written unknown) as a paper prescription (unknown) (no (unknown) (unknown) [ ] No new (units (unk nown) date) medications given unknown) (unknown) (no (unknown) (unknown) [0700] (Howell) (units (unknown) date) Patient received unknown) in sign out from [mason]. I have reviewed (unknown) (no (unknown) (unknown) [Embedded Image (units (unknown) date) Not Available] unknown) (unknown) (no (unknown) (unknown) [x ] New (units (unkno wn) date) medication unknown) prescriptions sent to your pharmacy: [ [facility] ] (unknown) (no (unknown) (unknown) a muscle it has (units (unknown) date) been slowly unknown) increasing over time. She went to work out last (unknown) (no (unknown) (unknown) accompanied by (units (unknown) date) her mother today. unknown) Patient is following with JORDAN Lacey. (unknown) (no (unknown) (unknown) alcohol intake (units (unknown) date) frequency: unknown) holidays/special occasions only (unknown) (no (unknown) (unknown) alcohol intake: (units (unknown) date) current unknown) (unknown) (no (unknown) (unknown) amoxicillin (units (un known) date) AdvReac Vomiting unknown) Verified 10/07/22 15:00 (unknown) (no (unknown) (unknown) and below (units (unkn own) date) unknown) (unknown) (no (unknown) (unknown) appointment. Let (units (unknown) date) them know you were unknown) seen in the Emergency Department and that we (unknown) (no (unknown) (unknown) ask that you be (units (unknown) date) seen in follow up. unknown) We will electronically transmit a record of (unknown) (no (unknown) (unknown) atypical. She is (units (unknown) date) denying any flank unknown) pain. Patient denies any other surgeries (unknown) (no (unknown) (unknown) besides her right (units (unknown) date) fallopian tube unknown) removal. She has allergies to morphine, (unknown) (no (unknown) (unknown) clindamycin HCl (units (unknown) date) 150 mg capsule 150 unknown) mg PO DAILY #30 caps 03/17/22 (unknown) (no (unknown) (unknown) clindamycin HCl (units (unknown) date) 150 mg capsule unknown) (unknown) (no (unknown) (unknown) concerning (units (unk nown) date) symptoms, such as unknown) [fever greater than 101 F, shaking chills, (unknown) (no (unknown) (unknown) constipation, no (units (unknown) date) black or bloody unknown) stools. She denies dysuria, urgency or (unknown) (no (unknown) (unknown) different as it is (units (unknown) date) right-sided but unknown) also goes to the right upper abdomen which is (unknown) (no (unknown) (unknown) doxycycline (units (un known) date) AdvReac unknown) Intermediate vomitt Verified 10/07/22 14:59 (unknown) (no (unknown) (unknown) doxycycline and (units (unknown) date) amoxicillin. No unknown) tobacco, alcohol or illicit. She is (unknown) (no (unknown) (unknown) extremities (units (un known) date) unknown) (unknown) (no (unknown) (unknown) fluconazole 150 (units (unknown) date) mg tablet 150 mg unknown) PO Q48H 2 doses #2 tabs 08/31/22 (unknown) (no (unknown) (unknown) fluconazole (units (un known) date) [Diflucan] 150 mg unknown) tablet (unknown) (no (unknown) (unknown) for evaluation (units (unknown) date) and this was unknown) delayed by scheduling circumstances and has been (unknown) (no (unknown) (unknown) frequency. No (units ( unknown) date) vaginal bleeding unknown) or discharge. Patient states this feels (unknown) (no (unknown) (unknown) have discussed (units (unknown) date) findings including unknown) plan for follow-up (unknown) (no (unknown) (unknown) history and help (units (unknown) date) get you set up unknown) with a doctor in the community. (unknown) (no (unknown) (unknown) household (units (unkn own) date) members: friend(s) unknown) (unknown) (no (unknown) (unknown) hydrocodone 5 (units ( unknown) date) mg-acetaminophen unknown) 325 1 tab PO Q4-6H PRN pain #10 tabs 06/07/22 (unknown) (no (unknown) (unknown) hydrocodone 5 (units ( unknown) date) mg-acetaminophen unknown) 325 1 tab PO Q4-6H PRN pain #20 tabs 10/27/22 (unknown) (no (unknown) (unknown) hydrocodone-aceta (units (unknown) date) minophen 5-325 mg unknown) tablet (unknown) (no (unknown) (unknown) hydromorphone 4 (units (unknown) date) mg tablet 4 mg PO unknown) Q4-6H PRN pain #20 tabs 04/08/22 (unknown) (no (unknown) (unknown) hydromorphone (units ( unknown) date) [Dilaudid] 4 mg unknown) tablet (unknown) (no (unknown) (unknown) intact (units (unkno wn) date) unknown) (unknown) (no (unknown) (unknown) ketorolac 10 mg (units (unknown) date) tablet 10 mg PO unknown) Q6H PRN pain #14 tabs 10/27/22 (unknown) (no (unknown) (unknown) ketorolac 10 mg (units (unknown) date) tablet 10 mg PO unknown) Q6H PRN pain #14 tabs 06/07/22 (unknown) (no (unknown) (unknown) ketorolac 10 mg (units (unknown) date) tablet unknown) (unknown) (no (unknown) (unknown) lower pelvic (units (u nknown) date) discomfort about 2 unknown) or 3 days ago she thought she might have pulled (unknown) (no (unknown) (unknown) mg tablet (units (unkn own) date) unknown) (unknown) (no (unknown) (unknown) moist mucous (units (u nknown) date) membranes unknown) (unknown) (no (unknown) (unknown) night and that (units (unknown) date) made things worse. unknown) She denies fevers or chills, no chest pain or (unknown) (no (unknown) (unknown) obtaining CT but (units (unknown) date) felt be more unknown) appropriate to evaluate with ultrasound at this (unknown) (no (unknown) (unknown) ondansetron 4 mg (units (unknown) date) disintegrating 4 unknown) mg PO TID-QID PRN nausea and 10/27/22 (unknown) (no (unknown) (unknown) ondansetron 4 mg (units (unknown) date) disintegrating 4 unknown) mg PO TID-QID PRN nausea and 06/07/22 (unknown) (no (unknown) (unknown) ondansetron 4 mg (units (unknown) date) tablet,disintegrat unknown) ing (unknown) (no (unknown) (unknown) oxycodone 5 mg (units (unknown) date) tablet 5 mg PO Q4H unknown) PRN pain #20 tabs 04/07/22 (unknown) (no (unknown) (unknown) oxycodone 5 mg (units (unknown) date) tablet unknown) (unknown) (no (unknown) (unknown) past. Plan for (units (unknown) date) fluids, pain unknown) medication, ultrasound and reassessment. Discussed (unknown) (no (unknown) (unknown) pelvic/abdominal (units (unknown) date) pain. On exam unknown) patient has right upper and lower quadrant (unknown) (no (unknown) (unknown) rescheduled for (units (unknown) date) later in the unknown) month. Patient states she started having some (unknown) (no (unknown) (unknown) salpingectomy on (units (unknown) date) the right. Patient unknown) had surgery scheduled for ex lap with OBGYN (unknown) (no (unknown) (unknown) shortness of (units (u nknown) date) breath, no unknown) lightheadedness or passing out, no nausea, no vomiting. (unknown) (no (unknown) (unknown) sounds all 4 (units (u nknown) date) quadrants. No unknown) guarding or rebound, rigidity, no mass (unknown) (no (unknown) (unknown) tablet vomiting (units (unknown) date) #10 tabs unknown) (unknown) (no (unknown) (unknown) tenderness. She (units (unknown) date) is afebrile, not unknown) tachycardic or hypotensive. She appears quite (unknown) (no (unknown) (unknown) the clinical (units (u nknown) date) course and unknown) performed an independent history and physical exam. (unknown) (no (unknown) (unknown) the normal, (units (un known) date) patient's pain is unknown) well controlled and she is tolerating orals. We (unknown) (no (unknown) (unknown) time. Patient (units ( unknown) date) signed out to Dr. herron) Butch while awaiting results. (unknown) (no (unknown) (unknown) tobacco type: (units ( unknown) date) vaping unknown) (unknown) (no (unknown) (unknown) today's note if (units (unknown) date) your PCP is in our unknown) system (unknown) (no (unknown) (unknown) uncomfortable. (units (unknown) date) Plan for labs unknown) including CBC, CMP, lipase, hCG and urine sample. (unknown) (no (unknown) (unknown) worsening pain, (units (unknown) date) persistent unknown) vomiting or other bothersome symptoms] Result panel 376 (unknown) (no (unknown) (unknown) (no value) (units (unk nown) date) unknown) (unknown) (no (unknown) (unknown) <Electronically (units (unknown) date) signed by Tremaine unknown) Mary Jane Rae> (unknown) (no (unknown) (unknown) <Electronically (units (unknown) date) signed by Shanae Muñoz unknown) Mary Jane Odell> (unknown) (no (unknown) (unknown) <Tremaine Rae, (units (unknown) date) DO - Last Filed: unknown) 10/27/22 19:18> (unknown) (no (unknown) (unknown) <Shanae Odell, (units (unknown) date) DO - Last Filed: unknown) 10/28/22 02:59> (unknown) (no (unknown) (unknown) (Diflucan) (units (unk nown) date) unknown) (unknown) (no (unknown) (unknown) (Dilaudid) (units (unk nown) date) unknown) (unknown) (no (unknown) (unknown) *If you do not (units (unknown) date) have a primary unknown) care provider please contact the [facility] (unknown) (no (unknown) (unknown) *Please continue (units (unknown) date) to take your unknown) regular medications as directed. (unknown) (no (unknown) (unknown) *Please follow up (units (unknown) date) with your primary unknown) care provider in 2-3 days, call for an (unknown) (no (unknown) (unknown) *Return to (units (unk nown) date) Emergency unknown) Department if you should have any new, worsening or (unknown) (no (unknown) (unknown) *What to do: (units (u nknown) date) unknown) (unknown) (no (unknown) (unknown) *You have been (units (unknown) date) diagnosed with unknown) [right lower quadrant ] (unknown) (no (unknown) (unknown) [id number] (units (unkno wn) date) unknown) (unknown) (no (unknown) (unknown) 10/27/22 10/27/22 (units (unknown) date) 10/27/22 unknown) Range/Units (unknown) (no (unknown) (unknown) 10/27/22 05:45 (units (unknown) date) unknown) (unknown) (no (unknown) (unknown) 10/27/22 1918 (units ( unknown) date) unknown) (unknown) (no (unknown) (unknown) 10/27/22 (units (unkno wn) date) unknown) (unknown) (no (unknown) (unknown) 10/28/22 0259 (units ( unknown) date) unknown) (unknown) (no (unknown) (unknown) 05:21 (units (unkno wn) date) unknown) (unknown) (no (unknown) (unknown) 05:45 05:45 05:45 (units (unknown) date) unknown) (unknown) (no (unknown) (unknown) 1 tab PO Q4-6H (units (unknown) date) PRN (Reason: pain) unknown) Qty: 10 0RF (unknown) (no (unknown) (unknown) 1 tab PO Q4-6H (units (unknown) date) PRN (Reason: pain) unknown) Qty: 20 0RF (unknown) (no (unknown) (unknown) 10 mg PO Q6H PRN (units (unknown) date) (Reason: pain) unknown) Qty: 14 0RF (unknown) (no (unknown) (unknown) 150 mg PO DAILY (units (unknown) date) Qty: 30 0RF unknown) (unknown) (no (unknown) (unknown) 150 mg PO Q48H (units (unknown) date) Qty: 2 4RF unknown) (unknown) (no (unknown) (unknown) 4 mg PO Q4-6H PRN (units (unknown) date) (Reason: pain) unknown) Qty: 20 0RF (unknown) (no (unknown) (unknown) 4 mg PO TID-QID (units (unknown) date) PRN (Reason: unknown) nausea and vomiting) Qty: 10 0RF (unknown) (no (unknown) (unknown) 5 mg PO Q4H PRN (units (unknown) date) (Reason: pain) unknown) Qty: 20 0RF (unknown) (no (unknown) (unknown) ABDOMEN: Soft, (units (unknown) date) right lower and unknown) upper quadrant tenderness. Normoactive bowel (unknown) (no (unknown) (unknown) ALT 30 (<35) IU/L (units (unknown) date) unknown) (unknown) (no (unknown) (unknown) AST 27 (14-36) (units (unknown) date) IU/L unknown) (unknown) (no (unknown) (unknown) Acne (-2016) (units (u nknown) date) unknown) (unknown) (no (unknown) (unknown) Activity (units (unkno wn) date) Restrictions/Addit unknown) ional Instructions: (unknown) (no (unknown) (unknown) Admin: 10/27/22 (units (unknown) date) 05:52 Dose: 1,000 unknown) mls/hr (unknown) (no (unknown) (unknown) Age/Sex: 21 / F (units (unknown) date) unknown) (unknown) (no (unknown) (unknown) Albumin 3.9 (units (un known) date) (3.5-5.0) g/dL unknown) (unknown) (no (unknown) (unknown) Albumin/Globulin (units (unknown) date) Ratio 1.5 unknown) (1.0-2.8) (unknown) (no (unknown) (unknown) Alcohol type: (units ( unknown) date) wine unknown) (unknown) (no (unknown) (unknown) Alkaline (units (unkno wn) date) Phosphatase 80 unknown) (38-126) U/L (unknown) (no (unknown) (unknown) Allergies (units (unkn own) date) unknown) (unknown) (no (unknown) (unknown) Allergy/AdvReac (units (unknown) date) Type Severity unknown) Reaction Status Date / Time (unknown) (no (unknown) (unknown) Anesthesia (units (unk nown) date) unknown) (unknown) (no (unknown) (unknown) At this time we (units (unknown) date) are still Pending unknown) results of imaging (unknown) (no (unknown) (unknown) At time of (units (unk nown) date) discharge there unknown) are no surgical findings on imaging, labs are within (unknown) (no (unknown) (unknown) BUN 12 (7-17) (units ( unknown) date) mg/dL unknown) (unknown) (no (unknown) (unknown) BUN/Creatinine (units (unknown) date) Ratio 17.9 (6-22) unknown) (unknown) (no (unknown) (unknown) Baso # (Auto) 0 (units (unknown) date) (0-100) /uL unknown) (unknown) (no (unknown) (unknown) Baso % (Auto) 0.7 (units (unknown) date) (0-2) % unknown) (unknown) (no (unknown) (unknown) Blood Pressure (units (unknown) date) 137/85 10/27/22 unknown) 05:21 (unknown) (no (unknown) (unknown) Blood Pressure (units (unknown) date) 137 unknown) (unknown) (no (unknown) (unknown) CARDIOVASCULAR: (units (unknown) date) Regular rate and unknown) rhythm without murmurs, rubs or gallops. (unknown) (no (unknown) (unknown) Calcium 8.6 (units [...] date) unknown) (unknown) (no (unknown) (unknown) Creatinine 0.67 (units (unknown) date) (0.52-1.04) mg/dL unknown) (unknown) (no (unknown) (unknown) : 2000 (units (unknown) date) Acct:[id number] unknown) (unknown) (no (unknown) (unknown) Date of Service: (units (unknown) date) 10/27/22 unknown) (unknown) (no (unknown) (unknown) Departure (units (unkn own) date) unknown) (unknown) (no (unknown) (unknown) Discharge Plan (units (unknown) date) unknown) (unknown) (no (unknown) (unknown) Discontinued (units (u nknown) date) Medications unknown) (unknown) (no (unknown) (unknown) Documented By: GC (units (unknown) date) unknown) (unknown) (no (unknown) (unknown) Documented By: KM (units (unknown) date) unknown) (unknown) (no (unknown) (unknown) ER Physician: (units ( unknown) date) Tremaine Rae D.O. unknown) (unknown) (no (unknown) (unknown) EXTREMITIES: (units (u nknown) date) Normal range of unknown) motion, no clubbing or edema. Neurovascularly (unknown) (no (unknown) (unknown) Emergency Report (units (unknown) date) unknown) (unknown) (no (unknown) (unknown) Endometriosis (units ( unknown) date) (-2020) unknown) (unknown) (no (unknown) (unknown) Eos # (Auto) 200 (units (unknown) date) (0-450) /uL unknown) (unknown) (no (unknown) (unknown) Eos % (Auto) 2.5 (units (unknown) date) (2-4) % unknown) (unknown) (no (unknown) (unknown) Estimated GFR > (units (unknown) date) 60 (>60) mL/min unknown) (unknown) (no (unknown) (unknown) Exam Narrative: (units (unknown) date) unknown) (unknown) (no (unknown) (unknown) Exam (units (unkno wn) date) unknown) (unknown) (no (unknown) (unknown) GENERAL: Alert (units (unknown) date) and oriented x unknown) three, moderate distress. (unknown) (no (unknown) (unknown) : No CVA (units (unk nown) date) tenderness unknown) (unknown) (no (unknown) (unknown) General (units (unkno wn) date) unknown) (unknown) (no (unknown) (unknown) Globulin 2.6 (units (u nknown) date) (1.7-4.1) g/dL unknown) (unknown) (no (unknown) (unknown) Glucose 83 (units (unk nown) date) (70-100) mg/dL unknown) (unknown) (no (unknown) (unknown) HEENT: Head (units (un known) date) normocephalic, unknown) atraumatic, EOMI, pupils reactive, face symmetric, (unknown) (no (unknown) (unknown) HPI - Abdominal (units (unknown) date) Pain unknown) (unknown) (no (unknown) (unknown) HPI narrative: (units (unknown) date) unknown) (unknown) (no (unknown) (unknown) Hct 37.3 (36-46) (units (unknown) date) % unknown) (unknown) (no (unknown) (unknown) Heavy menstrual (units (unknown) date) period (-2019) unknown) (unknown) (no (unknown) (unknown) Hgb 12.7 (units (unkno wn) date) (12.0-16.0) g/dL unknown) (unknown) (no (unknown) (unknown) History of (units (unk nown) date) Present Illness unknown) (unknown) (no (unknown) (unknown) Hx of laparoscopy (units (unknown) date) (04/07/22) unknown) (unknown) (no (unknown) (unknown) Hydromorphone HCl (units (unknown) date) (Hydromorphone 0.5 unknown) Mg Inj) 0.5 mg IV NOW ONE (unknown) (no (unknown) (unknown) Initial Vital (units ( unknown) date) Signs unknown) (unknown) (no (unknown) (unknown) Initial Vital (units ( unknown) date) Signs: unknown) (unknown) (no (unknown) (unknown) Instructions: DI (units (unknown) date) for Abdominal unknown) Pain-Adult (unknown) (no (unknown) (unknown) Irregular (units (unkn own) date) menstrual cycle unknown) () (unknown) (no (unknown) (unknown) [facility] (units (unknown) date) [address] unknown) [place] [address] (unknown) (no (unknown) (unknown) Agatha Abrams (units (unknown) date) , WELFARE ADMINISTRATOR [Primary unknown) Care Provider] (unknown) (no (unknown) [...] (unknown) Last Admin: (units (un known) date) 10/27/22 05:51 unknown) Dose: 15 mg (unknown) (no (unknown) (unknown) Last Admin: (units (un known) date) 10/27/22 08:39 unknown) Dose: 0.5 mg (unknown) (no (unknown) (unknown) Last Infusion: (units (unknown) date) 10/27/22 06:55 unknown) Dose: 0 mls/hr (unknown) (no (unknown) (unknown) Limitations: no (units (unknown) date) limitations unknown) (unknown) (no (unknown) (unknown) Lipase 104 (units (unk nown) date) (23-300) U/L unknown) (unknown) (no (unknown) (unknown) Lymph # (Auto) (units (unknown) date) 1900 ([id number]) unknown) /uL (unknown) (no (unknown) (unknown) Lymph % (Auto) (units (unknown) date) 28.8 (25-40) % unknown) (unknown) (no (unknown) (unknown) Lymphangioma (units (u nknown) date) unknown) (unknown) (no (unknown) (unknown) MCH 29.4 (26-34) (units (unknown) date) PG unknown) (unknown) (no (unknown) (unknown) MCHC 34.0 (30-36) (units (unknown) date) % unknown) (unknown) (no (unknown) (unknown) MCV 86.4 (80-100) (units (unknown) date) fL unknown) (unknown) (no (unknown) (unknown) MDM - Abdominal (units (unknown) date) Pain unknown) (unknown) (no (unknown) (unknown) MDM Narrative (units ( unknown) date) unknown) (unknown) (no (unknown) (unknown) Medical History (units (unknown) date) (Reviewed 10/27/22 unknown) @ 05:42 by Shanae Odell DO) (unknown) (no (unknown) (unknown) Medical decision (units (unknown) date) making narrative: unknown) (unknown) (no (unknown) (unknown) Medication (units (unk nown) date) Instructions unknown) Recorded (unknown) (no (unknown) (unknown) Mode of arrival: (units (unknown) date) Ambulatory unknown) (unknown) (no (unknown) (unknown) [place] # (Auto) 600 (units (unknown) date) (0-900) /uL unknown) (unknown) (no (unknown) (unknown) [place] % (Auto) 9.6 (units (unknown) date) (3-14) % unknown) (unknown) (no (unknown) (unknown) NECK: Supple, (units ( unknown) date) full range of unknown) motion (unknown) (no (unknown) (unknown) NEUROLOGICAL: (units ( unknown) date) Cranial nerves II unknown) through XII grossly intact. Moving all (unknown) (no (unknown) (unknown) Narrative (units (unkn own) date) unknown) (unknown) (no (unknown) (unknown) Neut # (Auto) (units ( unknown) date) 3900 ([id number]) unknown) /uL (unknown) (no (unknown) (unknown) Neut % (Auto) (units ( unknown) date) 58.4 (50-75) % unknown) (unknown) (no (unknown) (unknown) New (units (unkno wn) date) unknown) (unknown) (no (unknown) (unknown) No Action (units (unkn own) date) unknown) (unknown) (no (unknown) (unknown) Opioids - (units (unkn own) date) Morphine Analogues unknown) Allergy Intermediate rash Verified 10/07/22 14:59 (unknown) (no (unknown) (unknown) Ordered: (units (unkno wn) date) unknown) (unknown) (no (unknown) (unknown) Orders (units (unkno wn) date) unknown) (unknown) (no (unknown) (unknown) Ovarian cyst (units (u nknown) date) unknown) (unknown) (no (unknown) (unknown) Oxygen Delivery (units (unknown) date) Method Room Air unknown) 10/27/22 05:21 (unknown) (no (unknown) (unknown) Oxygen Delivery (units (unknown) date) Method Room Air unknown) (unknown) (no (unknown) (unknown) Painful menstrual (units (unknown) date) periods (-2020) unknown) (unknown) (no (unknown) (unknown) Patient (units (unkno wn) date) Disposition: Home unknown) (unknown) (no (unknown) (unknown) Patient History (units (unknown) date) unknown) (unknown) (no (unknown) (unknown) Patient has had (units (unknown) date) prior tubo-ovarian unknown) abscess as well as hemorrhagic cyst in the (unknown) (no (unknown) (unknown) Patient: (units (unkno wn) date) Ade Vidales unknown) MR#: [id number] (unknown) (no (unknown) (unknown) Plt Count 304 (units ( unknown) date) (150-400) X103/uL unknown) [...] unknown) (unknown) (no (unknown) (unknown) Pulse Oximetry 99 (units (unknown) date) 10/27/22 05:21 unknown) (unknown) (no (unknown) (unknown) Pulse Oximetry 99 (units (unknown) date) unknown) (unknown) (no (unknown) (unknown) Pulse Rate 68 (units ( unknown) date) 10/27/22 05:21 unknown) (unknown) (no (unknown) (unknown) Pulse Rate 68 (units ( unknown) date) unknown) (unknown) (no (unknown) (unknown) RBC 4.32 (units (unkno wn) date) (4.0-5.2) X106/uL unknown) (unknown) (no (unknown) (unknown) RDW 14.3 (units (unkno wn) date) (11.6-14.8) % unknown) (unknown) (no (unknown) (unknown) RESPIRATORY: (units (u nknown) date) Breath sounds unknown) equal bilaterally, no wheezes rales or rhonchi. (unknown) (no (unknown) (unknown) ROS Unobtainable: (units (unknown) date) All systems unknown) reviewed + are unremarkable except as noted in HPI (unknown) (no (unknown) (unknown) Referrals: (units (unk nown) date) unknown) (unknown) (no (unknown) (unknown) Related Data (units (u nknown) date) unknown) (unknown) (no (unknown) (unknown) Repeat second (units ( unknown) date) dose 48 hrs after unknown) first dose. (unknown) (no (unknown) (unknown) Resource line at (units (unknown) date) [phone]. They unknown) will ask some questions about your medical (unknown) (no (unknown) (unknown) Respiratory Rate (units (unknown) date) 18 10/27/22 05:21 unknown) (unknown) (no (unknown) (unknown) Respiratory Rate (units (unknown) date) 18 unknown) (unknown) (no (unknown) (unknown) Review of Systems (units (unknown) date) unknown) (unknown) (no (unknown) (unknown) Right lower (units (un known) date) quadrant abdominal unknown) pain (unknown) (no (unknown) (unknown) Rx Instructions: (units (unknown) date) unknown) (unknown) (no (unknown) (unknown) S/P ACL (units (unkno wn) date) reconstruction unknown) (-06/08/21) (unknown) (no (unknown) (unknown) SKIN: Warm, dry, (units (unknown) date) no petechiae, no unknown) rashes or lesions. (unknown) (no (unknown) (unknown) Serum , (units (unknown) date) Qual Cancelled unknown) (unknown) (no (unknown) (unknown) She states she is (units (unknown) date) been stooling unknown) regularly with form soft stools. No diarrhea, (unknown) (no (unknown) (unknown) Signed By: (units (unk nown) date) unknown) (unknown) (no (unknown) (unknown) Smoking Status: (units (unknown) date) Current some day unknown) smoker (unknown) (no (unknown) (unknown) Social History (units (unknown) date) (Reviewed 10/27/22 unknown) @ 05:42 by Shanae Odell DO) (unknown) (no (unknown) (unknown) Sodium 135 L (units (u nknown) date) (137-145) mmol/L unknown) (unknown) (no (unknown) (unknown) Sodium Chloride (units (unknown) date) (Normal Saline unknown) 0.9%) 1,000 mls @ 1,000 mls/hr IV BOLUS ONE (unknown) (no (unknown) (unknown) Source: patient (units (unknown) date) unknown) (unknown) (no (unknown) (unknown) Stand Alone (units (un known) date) Forms: Patient unknown) Portal/API (unknown) (no (unknown) (unknown) Stated Complaint: (units (unknown) date) abd pain unknown) (unknown) (no (unknown) (unknown) Stop: 10/27/22 (units (unknown) date) 05:34 unknown) (unknown) (no (unknown) (unknown) Stop: 10/27/22 (units (unknown) date) 06:32 unknown) (unknown) (no (unknown) (unknown) Stop: 10/27/22 (units (unknown) date) 08:29 unknown) (unknown) (no (unknown) (unknown) Substance Use (units ( unknown) date) Type: does not use unknown) (unknown) (no (unknown) (unknown) Surgical History (units (unknown) date) (Reviewed 10/27/22 unknown) @ 05:42 by Shanae Odell DO) (unknown) (no (unknown) (unknown) TOA (tubo-ovarian (units (unknown) date) abscess) unknown) (-06/28/21) (unknown) (no (unknown) (unknown) Temperature 97 F (units (unknown) date) L 10/27/22 05:21 unknown) (unknown) (no (unknown) (unknown) Temperature 97 F (units (unknown) date) L unknown) (unknown) (no (unknown) (unknown) This is a (units (unkn own) date) 21-year-old female unknown) who presents with acute on chronic or (unknown) (no (unknown) (unknown) This is a (units (unkn own) date) 21-year-old female unknown) with history of prior tubo-ovarian abscess with (unknown) (no (unknown) (unknown) Time Seen by (units (u nknown) date) Provider: 10/27/22 unknown) 05:18 (unknown) (no (unknown) (unknown) Total Bilirubin (units (unknown) date) 0.7 (0.2-1.3) unknown) mg/dL (unknown) (no (unknown) (unknown) Total Protein 6.5 (units (unknown) date) (6.3-8.2) g/dL unknown) (unknown) (no (unknown) (unknown) Vital Signs - 8 (units (unknown) date) hr unknown) (unknown) (no (unknown) (unknown) Vital Signs (units (un known) date) unknown) (unknown) (no (unknown) (unknown) Vital signs: (units (u nknown) date) unknown) (unknown) (no (unknown) (unknown) WBC 6.7 (units (unkno wn) date) (4.5-11.0) X103/uL unknown) (unknown) (no (unknown) (unknown) Sushant Bryant, (units (unknown) date) [Physician] unknown) (unknown) (no (unknown) (unknown) [ ] New (units (unkno wn) date) medication written unknown) as a paper prescription (unknown) (no (unknown) (unknown) [ ] No new (units (unk nown) date) medications given unknown) (unknown) (no (unknown) (unknown) [0700] (Butch) (units (unknown) date) Patient received unknown) in sign out from [make]. I have reviewed (unknown) (no (unknown) (unknown) [Embedded Image (units (unknown) date) Not Available] unknown) (unknown) (no (unknown) (unknown) [x ] New (units (unkno wn) date) medication unknown) prescriptions sent to your pharmacy: [ [facility] ] (unknown) (no (unknown) (unknown) a muscle it has (units (unknown) date) been slowly unknown) increasing over time. She went to work out last (unknown) (no (unknown) (unknown) accompanied by (units (unknown) date) her mother today. unknown) Patient is following with JORDAN Lacey. (unknown) (no (unknown) (unknown) alcohol intake (units (unknown) date) frequency: unknown) holidays/special occasions only (unknown) (no (unknown) (unknown) alcohol intake: (units (unknown) date) current unknown) (unknown) (no (unknown) (unknown) amoxicillin (units (un known) date) AdvReac Vomiting unknown) Verified 10/07/22 15:00 (unknown) (no (unknown) (unknown) and below (units (unkn own) date) unknown) (unknown) (no (unknown) (unknown) appointment. Let (units (unknown) date) them know you were unknown) seen in the Emergency Department and that we (unknown) (no (unknown) (unknown) ask that you be (units (unknown) date) seen in follow up. unknown) We will electronically transmit a record of (unknown) (no (unknown) (unknown) atypical. She is (units (unknown) date) denying any flank unknown) pain. Patient denies any other surgeries (unknown) (no (unknown) (unknown) besides her right (units (unknown) date) fallopian tube unknown) removal. She has allergies to morphine, (unknown) (no (unknown) (unknown) clindamycin HCl (units (unknown) date) 150 mg capsule 150 unknown) mg PO DAILY #30 caps 03/17/22 (unknown) (no (unknown) (unknown) clindamycin HCl (units (unknown) date) 150 mg capsule unknown) (unknown) (no (unknown) (unknown) concerning (units (unk nown) date) symptoms, such as unknown) [fever greater than 101 F, shaking chills, (unknown) (no (unknown) (unknown) constipation, no (units (unknown) date) black or bloody unknown) stools. She denies dysuria, urgency or (unknown) (no (unknown) (unknown) different as it is (units (unknown) date) right-sided but unknown) also goes to the right upper abdomen which is (unknown) (no (unknown) (unknown) doxycycline (units (un known) date) AdvReac unknown) Intermediate vomitt Verified 10/07/22 14:59 (unknown) (no (unknown) (unknown) doxycycline and (units (unknown) date) amoxicillin. No unknown) tobacco, alcohol or illicit. She is (unknown) (no (unknown) (unknown) extremities (units (un known) date) unknown) (unknown) (no (unknown) (unknown) fluconazole 150 (units (unknown) date) mg tablet 150 mg unknown) PO Q48H 2 doses #2 tabs 08/31/22 (unknown) (no (unknown) (unknown) fluconazole (units (un known) date) [Diflucan] 150 mg unknown) tablet (unknown) (no (unknown) (unknown) for evaluation (units (unknown) date) and this was unknown) delayed by scheduling circumstances and has been (unknown) (no (unknown) (unknown) frequency. No (units ( unknown) date) vaginal bleeding unknown) or discharge. Patient states this feels (unknown) (no (unknown) (unknown) have discussed (units (unknown) date) findings including unknown) plan for follow-up (unknown) (no (unknown) (unknown) history and help (units (unknown) date) get you set up unknown) with a doctor in the community. (unknown) (no (unknown) (unknown) household (units (unkn own) date) members: friend(s) unknown) (unknown) (no (unknown) (unknown) hydrocodone 5 (units ( unknown) date) mg-acetaminophen unknown) 325 1 tab PO Q4-6H PRN pain #10 tabs 06/07/22 (unknown) (no (unknown) (unknown) hydrocodone 5 (units ( unknown) date) mg-acetaminophen unknown) 325 1 tab PO Q4-6H PRN pain #20 tabs 10/27/22 (unknown) (no (unknown) (unknown) hydrocodone-aceta (units (unknown) date) minophen 5-325 mg unknown) tablet (unknown) (no (unknown) (unknown) hydromorphone 4 (units (unknown) date) mg tablet 4 mg PO unknown) Q4-6H PRN pain #20 tabs 04/08/22 (unknown) (no (unknown) (unknown) hydromorphone (units ( unknown) date) [Dilaudid] 4 mg unknown) tablet (unknown) (no (unknown) (unknown) intact (units (unkno wn) date) unknown) (unknown) (no (unknown) (unknown) ketorolac 10 mg (units (unknown) date) tablet 10 mg PO unknown) Q6H PRN pain #14 tabs 10/27/22 (unknown) (no (unknown) (unknown) ketorolac 10 mg (units (unknown) date) tablet 10 mg PO unknown) Q6H PRN pain #14 tabs 06/07/22 (unknown) (no (unknown) (unknown) ketorolac 10 mg (units (unknown) date) tablet unknown) (unknown) (no (unknown) (unknown) lower pelvic (units (u nknown) date) discomfort about 2 unknown) or 3 days ago she thought she might have pulled (unknown) (no (unknown) (unknown) mg tablet (units (unkn own) date) unknown) (unknown) (no (unknown) (unknown) moist mucous (units (u nknown) date) membranes unknown) (unknown) (no (unknown) (unknown) night and that (units (unknown) date) made things worse. unknown) She denies fevers or chills, no chest pain or (unknown) (no (unknown) (unknown) obtaining CT but (units (unknown) date) felt be more unknown) appropriate to evaluate with ultrasound at this (unknown) (no (unknown) (unknown) ondansetron 4 mg (units (unknown) date) disintegrating 4 unknown) mg PO TID-QID PRN nausea and 10/27/22 (unknown) (no (unknown) (unknown) ondansetron 4 mg (units (unknown) date) disintegrating 4 unknown) mg PO TID-QID PRN nausea and 06/07/22 (unknown) (no (unknown) (unknown) ondansetron 4 mg (units (unknown) date) tablet,disintegrat unknown) ing (unknown) (no (unknown) (unknown) oxycodone 5 mg (units (unknown) date) tablet 5 mg PO Q4H unknown) PRN pain #20 tabs 04/07/22 (unknown) (no (unknown) (unknown) oxycodone 5 mg (units (unknown) date) tablet unknown) (unknown) (no (unknown) (unknown) past. Plan for (units (unknown) date) fluids, pain unknown) medication, ultrasound and reassessment. Discussed (unknown) (no (unknown) (unknown) pelvic/abdominal (units (unknown) date) pain. On exam unknown) patient has right upper and lower quadrant (unknown) (no (unknown) (unknown) rescheduled for (units (unknown) date) later in the unknown) month. Patient states she started having some (unknown) (no (unknown) (unknown) salpingectomy on (units (unknown) date) the right. Patient unknown) had surgery scheduled for ex lap with OBGYN (unknown) (no (unknown) (unknown) shortness of (units (u nknown) date) breath, no unknown) lightheadedness or passing out, no nausea, no vomiting. (unknown) (no (unknown) (unknown) sounds all 4 (units (u nknown) date) quadrants. No unknown) guarding or rebound, rigidity, no mass (unknown) (no (unknown) (unknown) tablet vomiting (units (unknown) date) #10 tabs unknown) (unknown) (no (unknown) (unknown) tenderness. She (units (unknown) date) is afebrile, not unknown) tachycardic or hypotensive. She appears quite (unknown) (no (unknown) (unknown) the clinical (units (u nknown) date) course and unknown) performed an independent history and physical exam. (unknown) (no (unknown) (unknown) the normal, (units (un known) date) patient's pain is unknown) well controlled and she is tolerating orals. We (unknown) (no (unknown) (unknown) time. Patient (units ( unknown) date) signed out to Dr. marta Rae while awaiting results. (unknown) (no (unknown) (unknown) tobacco type: (units ( unknown) date) vaping unknown) (unknown) (no (unknown) (unknown) today's note if (units (unknown) date) your PCP is in our unknown) system (unknown) (no (unknown) (unknown) uncomfortable. (units (unknown) date) Plan for labs unknown) including CBC, CMP, lipase, hCG and urine sample. (unknown) (no (unknown) (unknown) worsening pain, (units (unknown) date) persistent unknown) vomiting or other bothersome symptoms] Result panel 377 (unknown) (no (unknown) (unknown) (no value) (units (unk nown) date) unknown) (unknown) (no (unknown) (unknown) [id number] (units (unkno wn) date) unknown) (unknown) (no (unknown) (unknown) 11/03/22 1606 (units ( unknown) date) unknown) (unknown) (no (unknown) (unknown) Age/Sex: 21 / F (units (unknown) date) unknown) (unknown) (no (unknown) (unknown) COVID-19 (units (unkno wn) date) status: Not unknown) tested (unknown) (no (unknown) (unknown) COVID-19 (units (unkno wn) date) unknown) (unknown) (no (unknown) (unknown) Changes to H+P: (units (unknown) date) No unknown) (unknown) (no (unknown) (unknown) Criteria for (units (u nknown) date) continued unknown) procedure: Non-surgical alternatives not available or (unknown) (no (unknown) (unknown) : 2000 (units (unknown) date) Acct:[id number] unknown) (unknown) (no (unknown) (unknown) Date of (units (unkno wn) date) Service: unknown) 11/03/22 (unknown) (no (unknown) (unknown) History + (units (unkn own) date) Physical unknown) reviewed/Exam performed by Physician: Yes (unknown) (no (unknown) (unknown) Interval Note (units ( unknown) date) unknown) (unknown) (no (unknown) (unknown) [facility] (units (unknown) date) [address] unknown) [place] [address] (unknown) (no (unknown) (unknown) Patient: (units (unkno wn) date) Ade Vidales E unknown) MR#: [id number] (unknown) (no (unknown) (unknown) Pre-operative (units ( unknown) date) Note unknown) (unknown) (no (unknown) (unknown) Provider: (units (unkn own) date) Sushant Bryant unknown) (unknown) (no (unknown) (unknown) Signed (units (unkno wn) date) By:<Electronical unknown) ly signed by Sushant Bryant MD> (unknown) (no (unknown) (unknown) appropriate per (units (unknown) date) current SOC unknown) Result panel 378 (unknown) (no date) (unknown) (unknown) (no value) (units (un known) unknown) (unknown) (no date) (unknown) (unknown) [id number] (units (unkn own) unknown) (unknown) (no date) (unknown) (unknown) Actual (units (unkn own) Procedure Side unknown) Surgeon (unknown) (no date) (unknown) (unknown) Age/Sex: (units (unknown) F unknown) (unknown) (no date) (unknown) (unknown) : (units (unkn own) 2000 unknown) Acct:[id number] (unknown) (no date) (unknown) (unknown) Date of (units (unkn own) Service: unknown) 11/03/22 (unknown) (no date) (unknown) (unknown) Date of (units (unkn own) procedure: unknown) 11/03/22 (unknown) (no date) (unknown) (unknown) History of (units (un known) right unknown) tubo-ovarian abscess (unknown) (no date) (unknown) (unknown) [place] (units (unkn own) [place] [id number] unknown) [address] [place] [id number] (unknown) (no date) (unknown) (unknown) Operation (units (unk nown) Date: 11/03/22 unknown) 15:30 (unknown) (no date) (unknown) (unknown) Operative (units (unk nown) Date/Time/Diagn unknown) oses (unknown) (no date) (unknown) (unknown) Operative Note (units (unknown) unknown) (unknown) (no date) (unknown) (unknown) Patient: (units (unkn own) Ade Vidales unknown) E MR#: [id number] (unknown) (no date) (unknown) (unknown) Post-op (units (unkn own) diagnosis: unknown) other (Same as above; pelvic adhesions, minimal pelvic (unknown) (no date) (unknown) (unknown) Pre-op (units (unkn own) diagnosis: unknown) Chronic pelvic pain (unknown) (no date) (unknown) (unknown) Procedure [...] Time of (units (unkn own) procedure: unknown) 16:15 (unknown) (no date) (unknown) (unknown) endometriosis) (units (unknown) unknown) (unknown) (no date) (unknown) (unknown) implants (units (unkn own) unknown) (unknown) (no date) (unknown) (unknown) p Dx (units (unkn own) Laparoscopy, unknown) with lysis of adhesions and fulguration of endometrial (unknown) (no date) (unknown) (unknown) s Drainage (units (un known) follicular unknown) cyst, right ovary Sushant Bryant MD Result panel 379 (unknown) (no (unknown) (unknown) (no value) (units (unk nown) date) unknown) (unknown) (no (unknown) (unknown) [id number] (units (unkno wn) date) unknown) (unknown) (no (unknown) (unknown) 11/03/22 1735 (units ( unknown) date) unknown) (unknown) (no (unknown) (unknown) 5 mm port was (units ( unknown) date) placed in the left unknown) and right mid quadrants using a similar (unknown) (no (unknown) (unknown) ? (units (unkno wn) date) unknown) (unknown) (no (unknown) (unknown) ?? (units (unkno wn) date) unknown) (unknown) (no (unknown) (unknown) Accordingly the (units (unknown) date) pneumoperitoneum unknown) was then vented the sleeves removed. A (unknown) (no (unknown) (unknown) Actual Procedure (units (unknown) date) Side Surgeon unknown) (unknown) (no (unknown) (unknown) Age/Sex: 21 / F (units (unknown) date) unknown) (unknown) (no (unknown) (unknown) Anesthesia Type: (units (unknown) date) General unknown) (unknown) (no (unknown) (unknown) Because of the (units (unknown) date) patient's unknown) persistent pain and the impact it is having on her (unknown) (no (unknown) (unknown) Bilateral ovarian (units (unknown) date) hypoechoic masses unknown) with peripheral vascularity.? Ectopic (unknown) (no (unknown) (unknown) Blood products (units (unknown) date) transfused: none unknown) (unknown) (no (unknown) (unknown) Closure Type: (units ( unknown) date) primary unknown) (unknown) (no (unknown) (unknown) Complications: (units (unknown) date) none unknown) (unknown) (no (unknown) (unknown) Condition: stable (units (unknown) date) unknown) (unknown) (no (unknown) (unknown) Continued (units (unkn own) date) surveillance and unknown) correlation with serial serum beta-hCG measurements (unknown) (no (unknown) (unknown) : 2000 (units (unknown) date) Acct:[id number] unknown) (unknown) (no (unknown) (unknown) Date of Service: (units (unknown) date) 11/03/22 unknown) (unknown) (no (unknown) (unknown) Date of procedure: (units (unknown) date) 11/03/22 unknown) (unknown) (no (unknown) (unknown) Disposition: PACU (units (unknown) date) unknown) (unknown) (no (unknown) (unknown) Estimated blood (units (unknown) date) loss (mL): 10 unknown) (unknown) (no (unknown) (unknown) FINDINGS:? (units (unk nown) date) unknown) (unknown) (no (unknown) (unknown) Findings: (units (unkn own) date) unknown) (unknown) (no (unknown) (unknown) Ade is a (units (unk nown) date) 21-year-old unknown) nulligravida who returns today with a 4?month history of (unknown) (no (unknown) (unknown) History of right (units (unknown) date) tubo-ovarian unknown) abscess (unknown) (no (unknown) (unknown) IMPRESSION:? (units (u nknown) date) unknown) (unknown) (no (unknown) (unknown) Indications: (units (u nknown) date) unknown) (unknown) (no (unknown) (unknown) Inspection of the (units (unknown) date) left ovarian fossa unknown) showed no abnormalities but there was a (unknown) (no (unknown) (unknown) [facility] (units (unknown) date) [address] [place] [address] unknown) [place] [address] (unknown) (no (unknown) (unknown) Monopolar current (units (unknown) date) was used unknown) judiciously to destroy all areas of superficial (unknown) (no (unknown) (unknown) No convincing (units ( unknown) date) evidence of unknown) intrauterine . (unknown) (no (unknown) (unknown) Operation Date: (units (unknown) date) 11/03/22 15:30 unknown) (unknown) (no (unknown) (unknown) Operative (units (unkn own) date) Date/Time/Diagnoses unknown) (unknown) (no (unknown) (unknown) Operative Note (units (unknown) date) unknown) (unknown) (no (unknown) (unknown) Operative Notes (units (unknown) date) unknown) (unknown) (no (unknown) (unknown) Patient was then (units (unknown) date) awakened from unknown) anesthesia and transferred to the PACU for a (unknown) (no (unknown) (unknown) Patient: (units (unkno wn) date) Ade Vidales E unknown) MR#: [id number] (unknown) (no (unknown) (unknown) Plan for (units (unkno wn) date) aftercare: unknown) (unknown) (no (unknown) (unknown) Post-op diagnosis: (units (unknown) date) other (Same as unknown) above; pelvic adhesions, minimal pelvic (unknown) (no (unknown) (unknown) Post-operative (units (unknown) date) unknown) (unknown) (no (unknown) (unknown) Pre-op diagnosis: (units (unknown) date) Chronic pelvic pain unknown) (unknown) (no (unknown) (unknown) Procedure + (units (un known) date) Clinicians unknown) (unknown) (no (unknown) (unknown) Procedure in (units (u nknown) date) detail: unknown) (unknown) (no (unknown) (unknown) Procedure: (units (unk nown) date) unknown) (unknown) (no (unknown) (unknown) Procedures (units (unk nown) date) unknown) (unknown) (no (unknown) (unknown) Provider: (units (unkn own) date) Sushant Bryant MD unknown) (unknown) (no (unknown) (unknown) Routine (units (unkno wn) date) postoperative care unknown) (unknown) (no (unknown) (unknown) Signed (units (unkno wn) date) By:<Electronically unknown) signed by Sushant Bryant MD> (unknown) (no (unknown) (unknown) Specimen(s): none (units (unknown) date) unknown) (unknown) (no (unknown) (unknown) Surgeon: Sushant Martinez (units (unknown) date) Manny unknown) (unknown) (no (unknown) (unknown) The anterior (units (u nknown) date) cul-de-sac is free unknown) of any abnormality. There is no adhesions and (unknown) (no (unknown) (unknown) The ovary on the (units (unknown) date) right was enlarged unknown) slightly with a follicular cyst which was (unknown) (no (unknown) (unknown) Time of procedure: (units (unknown) date) 16:15 unknown) (unknown) (no (unknown) (unknown) Uterine body is (units (unknown) date) normal in size.? unknown) Echogenic fluid in the uterine cavity may (unknown) (no (unknown) (unknown) With the patient (units (unknown) date) under satisfactory unknown) general anesthesia in the modified dorsal (unknown) (no (unknown) (unknown) abdomen with (units (u nknown) date) carbon dioxide and unknown) once it was properly insufflated, a 5 mm trocar (unknown) (no (unknown) (unknown) ability to work and (units (unknown) date) normal daily unknown) activities, she has decided that she would like (unknown) (no (unknown) (unknown) although a (units (unk nown) date) unknown) (unknown) (no (unknown) (unknown) and (units (unkno wn) date) photographically unknown) documented. The ovary on the right side was mobilized and (unknown) (no (unknown) (unknown) and sleeve were (units (unknown) date) placed through the unknown) incision into the abdominal cavity. The (unknown) (no (unknown) (unknown) and the upper (units ( unknown) date) abdomen were normal unknown) to laparoscopic visualization. (unknown) (no (unknown) (unknown) and (units (unkno wn) date) unknown) (unknown) (no (unknown) (unknown) appear unaffected (units (unknown) date) by the patient's unknown) prior episode of acute salpingitis with (unknown) (no (unknown) (unknown) bleeding for the (units (unknown) date) last 2 weeks and unknown) her pain has been worse during that period of (unknown) (no (unknown) (unknown) blood products.? (units (unknown) date) There is no unknown) definite evidence of gestational sac.? There is a [...] There is a (unknown) (no (unknown) (unknown) course of the (units ( unknown) date) surgery. There were unknown) no other areas of endometriosis visible in (unknown) (no (unknown) (unknown) cul-de-sac. The (units (unknown) date) uterus is normal in unknown) size and shape, retroverted. The left (unknown) (no (unknown) (unknown) cystectomy or (units ( unknown) date) possible left unknown) oophorectomy.? At the same time she would like to (unknown) (no (unknown) (unknown) decision was made (units (unknown) date) to leave the left unknown) tube in-situ along with the left ovary which (unknown) (no (unknown) (unknown) dissection. A (units ( unknown) date) monopolar L hook unknown) was then used to puncture the surface of the (unknown) (no (unknown) (unknown) endometriosis (units (u nknown) date) implants and at the unknown) completion of the process no other evidence of (unknown) (no (unknown) (unknown) endometriosis was (units (unknown) date) visible. The pelvis unknown) was thoroughly irrigated and fully (unknown) (no (unknown) (unknown) endometriosis (units ( unknown) date) within the cyst. unknown) Attention was then turned to the left adnexa (unknown) (no (unknown) (unknown) endometriosis) (units (unknown) date) unknown) (unknown) (no (unknown) (unknown) follicular cyst (units (unknown) date) and clear fluid was unknown) seen to exude from the defect created with (unknown) (no (unknown) (unknown) have a Mirena IUD (units (unknown) date) inserted to address unknown) her persistent menometrorrhagia.? She (unknown) (no (unknown) (unknown) if the tube is (units (unknown) date) severely affected unknown) by adhesive disease and possible left ovarian (unknown) (no (unknown) (unknown) implants (units (unkno wn) date) unknown) (unknown) (no (unknown) (unknown) in accordance with (units (unknown) date) [facility] unknown) Main OR protocols. No uterine manipulator (unknown) (no (unknown) (unknown) inspected again. (units (unknown) date) There were no areas unknown) of bleeding or other abnormalities noted. (unknown) (no (unknown) (unknown) intermittent.? It (units (unknown) date) does not seem to be unknown) related to her cycles but she is been (unknown) (no (unknown) (unknown) interrupted (units (un known) date) stitches, skin glue unknown) was applied, followed by appropriate dressings. (unknown) (no (unknown) (unknown) involving the (units ( unknown) date) ovary which were unknown) easily lysed with sharp and blunt dissection. (unknown) (no (unknown) (unknown) judicious use of (units (unknown) date) monopolar current. unknown) At the completion of the case the left (unknown) (no (unknown) (unknown) laparoscope and (units (unknown) date) found to be smooth unknown) with no abnormalities or suggestive (unknown) (no (unknown) (unknown) laparoscopic (units (u nknown) date) incisions were then unknown) closed with 4-0 Monocryl using inverted (unknown) (no (unknown) (unknown) left uterosacral (units (unknown) date) ligament near its unknown) insertion in the posterior cervix on the left (unknown) (no (unknown) (unknown) lithotomy position, (units (unknown) date) the perineum, unknown) vagina, and abdomen were prepped and draped in (unknown) (no (unknown) (unknown) masters window (units ( unknown) date) immediately lateral unknown) to the insertion of the uterosacral ligament. (unknown) (no (unknown) (unknown) movement or (units (un known) date) empties her unknown) bladder.? Pelvic US performed 08/31/2022 shows: (unknown) (no (unknown) (unknown) of any (units (unkno wn) date) endometriosis or unknown) endometrioma within the right ovary. Using the appendix (unknown) (no (unknown) (unknown) on the left. The (units (unknown) date) left fallopian tube unknown) appears to be mobile and the fimbria (unknown) (no (unknown) (unknown) opened with (units (un known) date) monopolar current unknown) and drained of clear fluid. There was no evidence (unknown) (no (unknown) (unknown) ovary is normal in (units (unknown) date) appearance and size unknown) but has some filmy adhesions on the (unknown) (no (unknown) (unknown) ovary was (units (unkn own) date) completely mobile unknown) and the left fallopian tube was similarly mobile. (unknown) (no (unknown) (unknown) ovary were removed (units (unknown) date) with a combination unknown) of blunt dissection, sharp dissection, and (unknown) (no (unknown) (unknown) p Dx Laparoscopy, (units (unknown) date) with lysis of unknown) adhesions and fulguration of endometrial (unknown) (no (unknown) (unknown) period of (units (unkn own) date) observation after unknown) having tolerated the procedure well (unknown) (no (unknown) (unknown) peripheral (units (unk nown) date) vascularity.? This unknown) could potentially represent an ectopic (unknown) (no (unknown) (unknown) persistent left (units (unknown) date) lower quadrant pain unknown) which is sharp and stabbing, and (unknown) (no (unknown) (unknown) (units (unkn own) date) unknown) (unknown) (no (unknown) (unknown) presents today for (units (unknown) date) her scheduled unknown) surgery. (unknown) (no (unknown) (unknown) proper placement (units (unknown) date) of the sleeve was unknown) confirmed with laparoscopy and a 2nd and 3rd (unknown) (no (unknown) (unknown) represent (units (unkn own) date) unknown) (unknown) (no (unknown) (unknown) right-sided (units (un known) date) tubo-ovarian unknown) abscess. In the absence of severe tubal disease, the (unknown) (no (unknown) (unknown) s Drainage (units (unk nown) date) follicular cyst, unknown) right ovary Sushant Bryant MD (unknown) (no (unknown) (unknown) side. In the base (units (unknown) date) of the masters unknown) window there appeared to be numerous (unknown) (no (unknown) (unknown) similar (units (unkno wn) date) unknown) (unknown) (no (unknown) (unknown) superficial (units (un known) date) endometrial unknown) implants. All these implants were destroyed during the (unknown) (no (unknown) (unknown) surface. There (units (unknown) date) were no adhesions unknown) or endometrial implants in the ovarian fossa (unknown) (no (unknown) (unknown) technique. Using a (units (unknown) date) 3 puncture unknown) technique the pelvis and abdomen were visualized (unknown) (no (unknown) (unknown) the adhesions in (units (unknown) date) the ovarian fossa unknown) were lysed/removed with sharp and blunt (unknown) (no (unknown) (unknown) the cautery. The (units (unknown) date) inner surface of unknown) the follicular cyst was visualized with the (unknown) (no (unknown) (unknown) the posterior (units ( unknown) date) cul-de-sac. The unknown) right ovarian fossa had some filmy adhesions (unknown) (no (unknown) (unknown) the umbilicus was (units (unknown) date) infiltrated with unknown) 0.5% Marcaine with epinephrine and a 1 cm (unknown) (no (unknown) (unknown) the usual manner (units (unknown) date) for laparoscopy. A unknown) pre-surgical safety time-out was then taken (unknown) (no (unknown) (unknown) there does not (units (unknown) date) appear to be any unknown) superficial endometriosis in the anterior (unknown) (no (unknown) (unknown) thick-walled 2.7 cm (units (unknown) date) heterogeneous unknown) complex hypoechoic mass in the left ovary with (unknown) (no (unknown) (unknown) time.? In addition (units (unknown) date) she has significant unknown) pain when she strains to have a bowel (unknown) (no (unknown) (unknown) to proceed with a (units (unknown) date) 2nd laparoscopy unknown) with plans to remove the left fallopian tube (unknown) (no (unknown) (unknown) unremarkable with (units (unknown) date) the exception of a unknown) masters window immediately lateral to the (unknown) (no (unknown) (unknown) vertical incision (units (unknown) date) was made. A Veress unknown) needle was then used to insufflate the (unknown) (no (unknown) (unknown) was also normal in (units (unknown) date) appearance. The unknown) posterior cul-de-sac was largely (unknown) (no (unknown) (unknown) was placed and (units (unknown) date) attention was unknown) turned to the laparoscopy. The inferior edge of (unknown) (no (unknown) (unknown) which was (units (unkn own) date) thoroughly unknown) visualized. The filmy adhesions on the surface of the Social History date description facility 2022-08-31 00:00 Current some day smoker [facility] 2022-10-07 00:00 Current some day smoker [facility] 2022-10-13 00:00 Current some day smoker [facility] 2022-10-27 00:00 Current some day smoker [facility] 2022-11-03 00:00 Never smoked tobacco ([facility] Vital Signs date measurement value units 2022-08-31 00:00 BMI 28.7 kg/m2 2022-08-31 00:00 BMI 91.2 % 2022-08-31 00:00 BP_diastolic 68 mmHg 2022-08-31 00:00 BP_systolic 118 mmHg 2022-08-31 00:00 height_metric 160.02 cm 2022-08-31 00:00 height_standard 63 in 2022-08-31 00:00 weight_metric 73.48 kg 2022-08-31 00:00 weight_standard 162 lb 2022-10-07 00:00 BMI 28.7 kg/m2 2022-10-07 00:00 BMI 91.1 % 2022-10-07 00:00 BP_diastolic 66 mmHg 2022-10-07 00:00 BP_systolic 114 mmHg 2022-10-07 00:00 heart_rate 60 /min 2022-10-07 00:00 height_metric 160.02 cm 2022-10-07 00:00 height_standard 63 in 2022-10-07 00:00 o2_saturation 99 % 2022-10-07 00:00 temperature_metric 36.94 C 2022-10-07 00:00 temperature_standard 98.5 F 2022-10-07 00:00 weight_metric 73.48 kg 2022-10-07 00:00 weight_standard 162 lb 2022-10-13 00:00 BMI 26.4 kg/m2 2022-10-13 00:00 BMI 84.8 % 2022-10-13 00:00 BP_diastolic 62 mmHg 2022-10-13 00:00 BP_systolic 120 mmHg 2022-10-13 00:00 heart_rate 60 /min 2022-10-13 00:00 height_metric 162.56 cm 2022-10-13 00:00 height_standard 64 in 2022-10-13 00:00 o2_saturation 98 % 2022-10-13 00:00 respiration_rate 16 /min 2022-10-13 00:00 temperature_metric 36.5 C 2022-10-13 00:00 temperature_standard 97.7 F 2022-10-13 00:00 weight_metric 69.67 kg 2022-10-13 00:00 weight_standard 153.6 lb 2022-10-27 00:00 BMI 28.7 kg/m2 2022-10-27 00:00 BMI 91.0 % 2022-10-27 00:00 BP_diastolic 56 mmHg 2022-10-27 00:00 BP_systolic 117 mmHg 2022-10-27 00:00 heart_rate 55 /min 2022-10-27 00:00 height_metric 160.02 cm 2022-10-27 00:00 height_standard 63 in 2022-10-27 00:00 o2_saturation 98 % 2022-10-27 00:00 respiration_rate 18 /min 2022-10-27 00:00 temperature_metric 36.11 C 2022-10-27 00:00 temperature_standard 97 F 2022-10-27 00:00 weight_metric 73.48 kg 2022-10-27 00:00 weight_standard 162 lb 2022-11-03 00:00 BMI 28.7 kg/m2 2022-11-03 00:00 BMI 91.0 % 2022-11-03 00:00 BP_diastolic 71 mmHg 2022-11-03 00:00 BP_systolic 119 mmHg 2022-11-03 00:00 heart_rate 61 /min 2022-11-03 00:00 height_metric 160.02 cm 2022-11-03 00:00 height_standard 63 in 2022-11-03 00:00 o2_saturation 98 % 2022-11-03 00:00 respiration_rate 18 /min 2022-11-03 00:00 temperature_metric 36.61 C 2022-11-03 00:00 temperature_standard 97.9 F 2022-11-03 00:00 weight_metric 73.48 kg 2022-11-03 00:00 weight_standard 162 lb
[2022-11-03 22:08] LABS: BILIRUBIN,URINE NEGATIVE (NEGATIVE); GLUCOSE, URINE (UA) NEGATIVE (NEGATIVE); KETONES,URINE (UA) NEGATIVE (NEGATIVE); LEUKOCYTE ESTERASE, URINE NEGATIVE (NEGATIVE); NITRITE,URINE NEGATIVE (NEGATIVE); OCCULT BLOOD,URINE NEGATIVE (NEGATIVE); PROTEIN,URINE NEGATIVE (NEGATIVE); UROBILINOGEN,URINE 0.2 (NORMAL) E.U./dL (NORMAL)
[2022-11-03 22:09] LABS: CLARITY,URINE CLEAR (CLEAR)
--- NOTE | 2022-11-03 23:17 | ED Physician Documentation ---
PD HPI ABD PAIN - Stated complaint Stated Complaint: FEMALE - Chief complaint Chief Complaint: Abd Pain - History obtained from History obtained from: Patient, Family - Additional information Additional information: The patient comes to the emergency department chief complaint of urinary retention after an exploratory laparoscopy today. The patient has a history of chlamydia and a tubo-ovarian abscess, and in the months since has had chronic pelvic pain. She has had this once before and has had laparoscopy at which time nothing was found. She had urinary retention after that laparoscopy and had a Bain catheter for 5 days. The patient states that after this Laparoscopy, she was told that it looks like she has endometriosis but they could not find anything else. She asked her surgeon to place a Bain, remembering her experience previously, and her surgeon declined at that time. The patient states she got home this evening and never was able to urinate. She states she ate and drink something and Feeling more and more like she had to urinate but could not. That is what finally prompted her to come in. No fevers or chills. No nausea or vomiting. No other complaints at this time. 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, Other : None HEENT: None Psych: Depression Musculoskeletal: None Derm: None - Past Surgical History Past Surgical History: Yes General: Other Ortho: ACL reconstruction /DISPATCHER SERVICE: Oophrectomy, Other - Present Medications Home Medications: Ambulatory Orders Medication Instructions Recorded Confirmed Sertraline [Zoloft] 25 mg PO DAILY 09/02/22 09/02/22 predniSONE [Deltasone] 40 mg PO DAILY 3 Days #6 tablet 09/02/22 - Allergies Allergies/Adverse Reactions: Allergies Allergy/AdvReac Type Severity Reaction Status Date / Time doxycycline Allergy Unknown Verified 11/03/22 22:32 lactose Allergy Unknown Verified 11/03/22 22:32 morphine Allergy Unknown Verified 11/03/22 22:32 Morpholine Analogues Allergy Hives Verified 11/03/22 22:32 Dairy Allergy Unknown Uncoded 11/03/22 22:32 - Social History Does the pt smoke?: No Smoking Status: Never smoker Does the pt drink ETOH?: No Does the pt have substance abuse?: No - Immunizations Immunizations are current?: Yes - POLST Patient has POLST: No PD ED PE NORMAL - Vitals Vital signs reviewed: Yes - General General: Alert and oriented X 3, No acute distress, Well developed/nourished - HEENT HEENT: Atraumatic, PERRL, EOMI, Moist mucous membranes - Neck Neck: Supple, no meningeal sign - Cardiac Cardiac: RRR, No murmur, Strong equal pulses - Respiratory Respiratory: No respiratory distress, Clear bilaterally - Abdomen Abdomen: Soft, Other (Incision sites are covered with bandages which are clean dry and intact; mild to moderate diffuse tenderness throughout abdomen, not an appropriate for surgical procedure patient just had; distended bladder.) - Derm Derm: Warm and dry - Extremities Extremities: No deformity - Neuro Neuro: Alert and oriented X 3 - Psych Psych: Normal mood, Normal affect Results - Vitals Vitals: Vital Signs - 24 hr 11/03/22 11/03/22 11/03/22 21:34 21:57 23:26 Temperature 36.5 C 36.6 C Heart Rate 58 L 61 Respiratory 17 20 15 Rate Blood Pressure 124/65 113/62 O2 Saturation 98 100 Oxygen O2 Source Room air - Labs Labs: Laboratory Tests 11/03/22 21:45 Urine Color YELLOW Urine Clarity CLEAR Urine pH 6.0 Ur Specific [place] <=1.005 Urine Protein NEGATIVE Urine Glucose (UA) NEGATIVE Urine Ketones NEGATIVE Urine Occult Blood NEGATIVE Urine Nitrite NEGATIVE Urine Bilirubin NEGATIVE Urine Urobilinogen 0.2 (NORMAL) Ur Leukocyte Esterase NEGATIVE Ur Microscopic Review NOT INDICATED Urine Culture Comments NOT INDICATED PD Medical Decision Making - ED course Complexity details: considered differential, d/w patient, d/w family ED course: A Bain catheter was placed and the patient put out about 700 cc of clearish yellow urine. She reported immediate relief of her symptoms. We have discussed that she did not should not use the catheter for more than 7 days without a voiding trial and should either she her gynecologic surgeon, her primary doctor, or our department to have this removed. We have discussed signs and symptoms of infection which should prompt reevaluation as well. Patient is in agreement. Departure - Departure Disposition: 01 Home, Self Care Clinical Impression: Postoperative urinary retention Condition: Stable Instructions: ED Catheter Care Bain, ED Retention Urinary Female Comments: A Bain catheter has been placed today and is draining well. This should not be in place for more than a week without rechecking to see if your bladder is working properly. You may follow-up with your surgeon, your primary doctor, or our department at any time during that week To have the catheter removed, though it is advisable that you leave it in for at least a couple of days. Please drink plenty of fluids and continue to follow all of the other postoperative recommendations and instructions that you were given today. Please follow-up with your surgeon regarding any concerns about the surgery itself. Discharge Date/Time: 11/03/22 23:54
[2022-11-03 23:28] VITALS: BP 113/62
== END 2022-11-03 23:54 | disposition home or self-care (01) ==
LOC: ED 21:28
DX: R33.9 Retention of urine, unspecified (principal)
CPT/HCPCS: 51702; 81001; 81003; 87086; 99283

== ENCOUNTER 2022-12-30 10:45 | Outpatient (CLI) | payer OTHER ==
[2022-12-30 17:20] LABS: BASOPHILS # (AUTO) 0.1 10^3/uL (0.0-0.1); BASOPHILS % (AUTO) 0.7 %; EOSINOPHILS # (AUTO) 0.2 10^3/uL (0.0-0.7); EOSINOPHILS % (AUTO) 2.3 %; HCT - HEMATOCRIT 40.3 % (37.0-47.0); LYMPHOCYTES % (AUTO) 26.9 %; MEAN CORPUSCULAR HEMOGLOBIN 28.8 pg (27.0-31.0); MEAN CORPUSCULAR HGB CONC 32.3 g/dL (32.0-36.0); MEAN CORPUSCULAR VOLUME 89.4 fL (81.0-99.0); MEAN PLATELET VOLUME 11.2 fL (7.9-10.8); MONOCYTES # (AUTO) 0.7 10^3/uL (0.0-1.0); MONOCYTES % (AUTO) 9.5 %; NEUTROPHILS # (AUTO) 4.5 10^3/uL (1.5-6.6); NEUTROPHILS % (AUTO) 60.3 %; PLT - PLATELET COUNT 394 10^3/uL (130-450); RED BLOOD COUNT 4.51 10^6/uL (4.20-5.40); RED CELL DISTRIBUTION WIDTH 13.6 % (12.0-15.0); WHITE BLOOD COUNT 7.4 x10^3/uL (4.8-10.8)
[2022-12-30 17:35] LABS: BILIRUBIN,URINE NEGATIVE (NEGATIVE); GLUCOSE, URINE (UA) NEGATIVE (NEGATIVE); KETONES,URINE (UA) NEGATIVE (NEGATIVE); LEUKOCYTE ESTERASE, URINE NEGATIVE (NEGATIVE); NITRITE,URINE NEGATIVE (NEGATIVE); OCCULT BLOOD,URINE NEGATIVE (NEGATIVE); PH,URINE 7.5 PH (5.0-7.5); PROTEIN,URINE NEGATIVE (NEGATIVE); UROBILINOGEN,URINE 0.2 (NORMAL) E.U./dL (NORMAL)
[2022-12-30 17:36] LABS: ALBUMIN 4.2 g/dL (3.2-5.5); ALBUMIN/GLOBULIN RATIO 1.6 (1.0-2.2); BILIRUBIN,TOTAL 0.6 mg/dL (0.2-1.0); CALCIUM 9.1 mg/dL (8.5-10.3); CREATININE 0.8 mg/dL (0.4-1.0); POTASSIUM 4.2 mmol/L (3.5-5.0); TOTAL PROTEIN 6.8 g/dL (6.7-8.2)
[2022-12-30 17:58] LABS: BACTERIA,URINE None Seen /HPF (None Seen); CLARITY,URINE HAZY (CLEAR); RBC,URINE None Seen /HPF (0-5); SQUAMOUS EPITHELIAL CELL,UR FEW Squamous (<= Few); WBC,URINE 0-3 /HPF (0-5)
== END 2022-12-30 11:00 | disposition home or self-care (01) ==
LOC: LAB.N 10:45
PROVIDERS: ATTEND Family Medicine
DX: R74.8 Abnormal levels of other serum enzymes (principal)
CPT/HCPCS: 36415; 80053; 81001; 82550; 85025; 87086

== ENCOUNTER 2022-12-31 08:55 | Outpatient (CLI) | payer OTHER | END 2022-12-31 08:56 | disposition home or self-care (01) | LOC: LAB 08:55 | PROVIDERS: ATTEND Family Medicine | DX: R74.8 Abnormal levels of other serum enzymes (principal) | CPT/HCPCS: 36415; 82550 ==

== ENCOUNTER 2023-01-01 13:59 | Outpatient (CLI) | payer OTHER | END 2023-01-01 14:00 | disposition home or self-care (01) | LOC: LAB 13:59 | PROVIDERS: ATTEND Family Medicine | DX: R74.8 Abnormal levels of other serum enzymes (principal) | CPT/HCPCS: 36415; 82550 ==

== ENCOUNTER 2023-01-02 07:08 | Outpatient (CLI) | payer OTHER | END 2023-01-02 07:09 | disposition home or self-care (01) | LOC: LAB 07:08 | PROVIDERS: ATTEND Family Medicine | DX: R74.8 Abnormal levels of other serum enzymes (principal) | CPT/HCPCS: 36415; 82550 ==

== ENCOUNTER 2023-01-11 07:15 | Outpatient (CLI) | payer OTHER ==
[2023-01-11 12:07] LABS: BASOPHILS # (AUTO) 0.1 10^3/uL (0.0-0.1); BASOPHILS % (AUTO) 0.7 %; EOSINOPHILS # (AUTO) 0.3 10^3/uL (0.0-0.7); HCT - HEMATOCRIT 42.3 % (37.0-47.0); HGB - HEMOGLOBIN 13.5 g/dL (12.0-16.0); LYMPHOCYTES # (AUTO) 2.2 10^3/uL (1.5-3.5); LYMPHOCYTES % (AUTO) 26.5 %; MEAN CORPUSCULAR HEMOGLOBIN 29.2 pg (27.0-31.0); MEAN CORPUSCULAR HGB CONC 31.9 g/dL (32.0-36.0); MEAN CORPUSCULAR VOLUME 91.4 fL (81.0-99.0); MONOCYTES # (AUTO) 0.7 10^3/uL (0.0-1.0); MONOCYTES % (AUTO) 8.2 %; NEUTROPHILS # (AUTO) 5.1 10^3/uL (1.5-6.6); NEUTROPHILS % (AUTO) 60.2 %; PLT - PLATELET COUNT 361 10^3/uL (130-450); RED BLOOD COUNT 4.63 10^6/uL (4.20-5.40); RED CELL DISTRIBUTION WIDTH 13.5 % (12.0-15.0); WHITE BLOOD COUNT 8.5 x10^3/uL (4.8-10.8)
[2023-01-11 12:18] LABS: ALBUMIN 4.2 g/dL (3.2-5.5); ALBUMIN/GLOBULIN RATIO 1.5 (1.0-2.2); BILIRUBIN,TOTAL 0.6 mg/dL (0.2-1.0); CALCIUM 9.3 mg/dL (8.5-10.3); CREATININE 0.8 mg/dL (0.4-1.0)
== END 2023-01-11 07:30 | disposition home or self-care (01) ==
LOC: LAB.N 07:15
PROVIDERS: ATTEND Nurse Practitioner
DX: R05.9 Cough, unspecified (principal)
CPT/HCPCS: 36415; 80053; 82550; 85025

== ENCOUNTER 2023-01-11 07:30 | Outpatient (CLI) | payer OTHER ==
--- NOTE | 2023-01-11 11:35 | XRAY Report ---
PROCEDURE: Chest 2 View X-Ray INDICATIONS: COUGH TECHNIQUE: 2 views of the chest were acquired. COMPARISON: None. FINDINGS: Surgical changes and devices: None. Lungs and pleura: No pleural effusions or pneumothorax. Lungs are clear. Mediastinum: Mediastinal contours appear normal. Heart size is normal. Bones and chest wall: No suspicious bony lesions. Overlying soft tissues appear unremarkable. IMPRESSION: No acute cardiopulmonary process. Reviewed by: Francisco Nesbitt MD on 01/11/2023 11:34 AM PDT Approved by: Francisco Nesbitt MD on 01/11/2023 11:34 AM PDT Station ID: [id number]
== END 2023-01-11 07:45 | disposition home or self-care (01) ==
LOC: DI.N 07:30
PROVIDERS: ATTEND Nurse Practitioner
DX: R05.9 Cough, unspecified (principal)
CPT/HCPCS: 36415; 80053; 82550; 85025

== ENCOUNTER 2023-02-16 13:17 | Emergency (ER) | payer OTHER ==
[2023-02-16 13:28] VITALS: BP 124/74
[2023-02-16] MEDS ORDERED: DEXAMETHASONE 10 MG/ML VIAL PO STA (14:10)
--- NOTE | 2023-02-16 14:12 | ED Physician Documentation ---
History of Present Illness - Stated complaint Stated Complaint: LT HAND/ARM NUMB - Chief complaint Chief Complaint: Ext Problem - History obtained from History obtained from: Patient - History of Present Illness Timing: Yesterday Pain level max: 3 Pain level now: 3 - Additonal information Additional information: 22-year-old female presents to the emergency department with left arm numbness x24 hours. It is on the ulnar aspect of the arm, affecting the fourth and fifth digits of the left hand. Denies any leaning on the elbow. 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 Has no neck or back pain. No head injuries. No fevers. No other symptoms. Took Motrin and Tylenol this morning. 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, Other : None HEENT: None Psych: Depression Musculoskeletal: None Derm: None - Past Surgical History Past Surgical History: Yes General: Other Ortho: ACL reconstruction /CARE TRANSITIONS MANAGER: Oophrectomy, Other - Present Medications Home Medications: Ambulatory Orders Medication Instructions Recorded Confirmed Sertraline [Zoloft] 25 mg PO DAILY 09/02/22 09/02/22 predniSONE [Deltasone] 40 mg PO DAILY 3 Days #6 tablet 09/02/22 predniSONE [Deltasone] 10 mg PO [id number] #42 tab 02/16/23 - Allergies Allergies/Adverse Reactions: Allergies Allergy/AdvReac Type Severity Reaction Status Date / Time doxycycline Allergy Unknown Verified 02/16/23 13:19 lactose Allergy Unknown Verified 02/16/23 13:19 morphine Allergy Unknown Verified 02/16/23 13:19 Morpholine Analogues Allergy Hives Verified 02/16/23 13:19 Dairy Allergy Unknown Uncoded 02/16/23 13:19 - Social History Does the pt smoke?: No Smoking Status: Never smoker Does the pt drink ETOH?: No Does the pt have substance abuse?: No - Immunizations Immunizations are current?: Yes - POLST Patient has POLST: No PD ED PE NORMAL - Vitals Vital signs reviewed: Yes - General General: Alert and oriented X 3, No acute distress - HEENT HEENT: Moist mucous membranes - Neck Neck: Supple, no meningeal sign, No bony TTP - Derm Derm: Warm and dry - Extremities Extremities: Other (Tender to palpation over the left wrist and left lateral epicondyle. Reproduces her symptoms with percussion of the ulnar tunnel and cubital tunnel.) - Neuro Neuro: Alert and oriented X 3 - Psych Psych: Normal mood, Normal affect Results - Vitals Vitals: Vital Signs - 24 hr 02/16/23 13:19 Temperature 36.5 C Heart Rate 60 Respiratory 16 Rate Blood Pressure 124/74 O2 Saturation 96 Oxygen O2 Source Room air PD Medical Decision Making - ED course Complexity details: reviewed results, re-evaluated patient, considered differential, d/w patient ED course: Patient with known ulnar nerve palsy/irritation. Decreased sensation over the ulnar aspect of the arm and fourth and fifth digits. She does have a small ganglion cyst, though it could be causing some of the symptoms. Also could be from the elbow. Ulnar tunnel syndrome versus cubital tunnel syndrome. We will have her follow-up with her doctor for further care. We will start on steroids. No indication for emergent imaging. Patient counseled regarding signs and symptoms for which I believe and urgent re-evaluation would be necessary. Patient with good understanding of and agreement to plan and is comfortable going home at this time This document was made in part using voice recognition software. While efforts are made to proofread this document, sound alike and grammatical errors may oc cur. Departure - Departure Disposition: 01 Home, Self Care Clinical Impression: Ulnar nerve entrapment Qualifiers: Laterality: left Qualified Code(s): G56.22 - Lesion of ulnar nerve, left upper limb Condition: Good Instructions: ED Palsy Unlar Nerve Follow-Up: MABEL RODRIGUEZ ARNP [Primary Care Provider] - Within 1 week Prescriptions: predniSONE [Deltasone] 10 mg PO [id number] #42 tab Comments: Use the steroids as prescribed as this will help to decrease the inflammation in your ulnar nerve. You can use ice as well, this should improve over the next 2 to 3 days. Please follow-up with your doctor as needed for further care. Your prescriptions were sent to [facility] in [place]. Forms: PCP List
== END 2023-02-16 14:20 | disposition home or self-care (01) ==
LOC: ED 13:17
DX: G56.22 Lesion of ulnar nerve, left upper limb (principal); Z79.899 Other long term (current) drug therapy
CPT/HCPCS: 99282; 99283

== ENCOUNTER 2023-03-28 15:07 | Outpatient (CLI) | payer OTHER ==
[2023-03-28 15:21] LABS: BASOPHILS # (AUTO) 0.1 10^3/uL (0.0-0.1); BASOPHILS % (AUTO) 0.7 %; EOSINOPHILS # (AUTO) 0.3 10^3/uL (0.0-0.7); EOSINOPHILS % (AUTO) 3.6 %; HCT - HEMATOCRIT 39.2 % (37.0-47.0); HGB - HEMOGLOBIN 13.1 g/dL (12.0-16.0); LYMPHOCYTES # (AUTO) 2.6 10^3/uL (1.5-3.5); LYMPHOCYTES % (AUTO) 29.6 %; MEAN CORPUSCULAR HEMOGLOBIN 29.8 pg (27.0-31.0); MEAN CORPUSCULAR HGB CONC 33.4 g/dL (32.0-36.0); MEAN CORPUSCULAR VOLUME 89.1 fL (81.0-99.0); MEAN PLATELET VOLUME 10.5 fL (7.9-10.8); MONOCYTES # (AUTO) 0.7 10^3/uL (0.0-1.0); MONOCYTES % (AUTO) 7.4 %; NEUTROPHILS # (AUTO) 5.2 10^3/uL (1.5-6.6); NEUTROPHILS % (AUTO) 58.5 %; PLT - PLATELET COUNT 328 10^3/uL (130-450); RED CELL DISTRIBUTION WIDTH 13.4 % (12.0-15.0); WHITE BLOOD COUNT 8.8 x10^3/uL (4.8-10.8)
[2023-03-28 15:35] LABS: ALBUMIN 4.6 g/dL (3.2-5.5); ALBUMIN/GLOBULIN RATIO 2.1 (1.0-2.2); BILIRUBIN,TOTAL 0.4 mg/dL (0.2-1.0); CALCIUM 9.7 mg/dL (8.5-10.3); CREATININE 0.8 mg/dL (0.6-1.3); POTASSIUM 3.9 mmol/L (3.5-4.5); TOTAL PROTEIN 6.8 g/dL (6.4-8.9)
== END 2023-03-28 15:08 | disposition home or self-care (01) ==
LOC: LAB 15:07
PROVIDERS: ATTEND Internal Medicine Gastroenterology
DX: K85.90 Acute pancreatitis without necrosis or infection, unspecified (principal)
CPT/HCPCS: 36415; 80053; 82150; 83690; 85025

== ENCOUNTER 2023-05-04 20:48 | Outpatient (CLI) | payer OTHER ==
[2023-05-06 04:09] LABS: ADENOVIRUS F 40/41 Not Detected (Not Detected); ASTROVIRUS Not Detected (Not Detected); C DIFFICILE TOXIN A/B Not Detected (Not Detected); CAMPYLOBACTER Not Detected (Not Detected); CRYPTOSPORIDIUM Not Detected (Not Detected); CYCLOSPORA CAYETANENSIS Not Detected (Not Detected); ENTAMOEBA HISTOLYTICA Not Detected (Not Detected); ENTEROAGGREGATIVE E COLI Not Detected (Not Detected); ENTEROPATHOGENIC E COLI Not Detected (Not Detected); ENTEROTOXIGENIC E COLI Not Detected (Not Detected); GIARDIA LAMBLIA Not Detected (Not Detected); NOROVIRUS GI/GII Not Detected (Not Detected); PLESIOMONAS SHIGELLOIDES Not Detected (Not Detected); ROTAVIRUS A Not Detected (Not Detected); SALMONELLA Not Detected (Not Detected); SAPOVIRUS Not Detected (Not Detected); SHIGA-TOXIN-PRODUCING E COLI Not Detected (Not Detected); SHIGELLA/ENTEROINVASIVE E COLI Not Detected (Not Detected); VIBRIO Not Detected (Not Detected); VIBRIO CHOLERAE Not Detected (Not Detected); YERSINIA ENTEROCOLITICA Not Detected (Not Detected)
[2023-05-09 09:09] LABS: GIARDIA LAMBLIA AG EIA Negative (Negative)
== END 2023-05-04 20:49 | disposition home or self-care (01) ==
LOC: LAB 20:48
PROVIDERS: ATTEND Internal Medicine Gastroenterology
DX: R10.84 Generalized abdominal pain (principal); R19.7 Diarrhea, unspecified; K59.00 Constipation, unspecified; K21.9 Gastro-esophageal reflux disease without esophagitis; R93.3 Abnormal findings on diagnostic imaging of other parts of digestive tract
CPT/HCPCS: 81599; 82705; 83630; 83993; 87045; 87046; 87177; 87209; 87329; 87427; 87507

== ENCOUNTER 2023-05-22 07:33 | Emergency (ER) | payer OTHER ==
[2023-05-22 08:13] LABS: BASOPHILS # (AUTO) 0.1 10^3/uL (0.0-0.1); EOSINOPHILS # (AUTO) 0.2 10^3/uL (0.0-0.7); EOSINOPHILS % (AUTO) 3.5 %; HCT - HEMATOCRIT 41.8 % (37.0-47.0); HGB - HEMOGLOBIN 13.9 g/dL (12.0-16.0); LYMPHOCYTES # (AUTO) 1.6 10^3/uL (1.5-3.5); LYMPHOCYTES % (AUTO) 26.2 %; MEAN CORPUSCULAR HEMOGLOBIN 30.3 pg (27.0-31.0); MEAN CORPUSCULAR HGB CONC 33.3 g/dL (32.0-36.0); MEAN CORPUSCULAR VOLUME 91.1 fL (81.0-99.0); MEAN PLATELET VOLUME 10.3 fL (7.9-10.8); MONOCYTES # (AUTO) 0.5 10^3/uL (0.0-1.0); MONOCYTES % (AUTO) 8.1 %; NEUTROPHILS # (AUTO) 3.8 10^3/uL (1.5-6.6); PLT - PLATELET COUNT 348 10^3/uL (130-450); RED BLOOD COUNT 4.59 10^6/uL (4.20-5.40); RED CELL DISTRIBUTION WIDTH 12.6 % (12.0-15.0); WHITE BLOOD COUNT 6.2 x10^3/uL (4.8-10.8)
[2023-05-22] MEDS ORDERED: HYDROmorphone 1 MG/ML CARPUJECT IVP STA (08:20)
[2023-05-22] MEDS ORDERED: ONDANSETRON 4 MG/2 ML VIAL IVP STA (08:20)
[2023-05-22 08:26] LABS: ALBUMIN 4.4 g/dL (3.2-5.5); ALBUMIN/GLOBULIN RATIO 1.9 (1.0-2.2); BILIRUBIN,TOTAL 0.6 mg/dL (0.2-1.0); CALCIUM 9.1 mg/dL (8.5-10.3); CREATININE 0.8 mg/dL (0.6-1.3); POTASSIUM 4.3 mmol/L (3.5-4.5); TOTAL PROTEIN 6.7 g/dL (6.4-8.9)
[2023-05-22 08:31] LABS: BILIRUBIN,URINE NEGATIVE (NEGATIVE); GLUCOSE, URINE (UA) NEGATIVE (NEGATIVE); KETONES,URINE (UA) NEGATIVE (NEGATIVE); LEUKOCYTE ESTERASE, URINE NEGATIVE (NEGATIVE); NITRITE,URINE NEGATIVE (NEGATIVE); OCCULT BLOOD,URINE NEGATIVE (NEGATIVE); PROTEIN,URINE NEGATIVE (NEGATIVE); UROBILINOGEN,URINE 0.2 (NORMAL) E.U./dL (NORMAL)
[2023-05-22 08:34] LABS: CLARITY,URINE CLEAR (CLEAR); HCG UR QUAL NEGATIVE
[2023-05-22] MEDS ORDERED: MAG HYDROX/AL HYDROX/SIMETH 30 ML UDC PO STA (08:59)
[2023-05-22] MEDS ORDERED: LIDOCAINE VISCOUS 2% 15 ML ORAL SYRINGE MM STA (08:59)
--- NOTE | 2023-05-22 09:00 | ED Physician Documentation ---
PD HPI ABD PAIN - Stated complaint Stated Complaint: ABD PX - Chief complaint Chief Complaint: Abd Pain - History obtained from History obtained from: Patient - Additional information Additional information: Patient is a 22-year-old female with a history of idiopathic pancreatitis, endometriosis Presenting for sharp epigastric abdominal pain with nausea starting this morning when she woke up. She reports feeling generalized bloating. No vomiting. No diarrhea. She is scheduled for upper endoscopy later this month as well as a colonoscopy. She reports having positive for dinner last night. She feels the need to burp and belch. Nothing makes her pain better or worse. She denies alcohol use. Review of Systems Constitutional: denies: Fever Cardiac: denies: Chest pain / pressure Respiratory: denies: Dyspnea GI: reports: Abdominal Pain, Nausea. 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, Other : None HEENT: None Psych: Depression Musculoskeletal: None Derm: None - Past Surgical History Past Surgical History: Yes General: Other Ortho: ACL reconstruction /DENTAL LABORATORY MANAGER: Oophrectomy, Other - Present Medications Home Medications: Ambulatory Orders Medication Instructions Recorded Confirmed oxyCODONE [Roxicodone] 5 mg PO Q6H PRN #12 tablet 05/22/23 - Allergies Allergies/Adverse Reactions: Allergies Allergy/AdvReac Type Severity Reaction Status Date / Time amoxicillin Allergy Rash Verified 05/22/23 07:54 doxycycline Allergy Unknown Verified 02/16/23 13:19 lactose Allergy Unknown Verified 02/16/23 13:19 morphine Allergy Unknown Verified 02/16/23 13:19 Morpholine Analogues Allergy Hives Verified 02/16/23 13:19 Dairy Allergy Unknown Uncoded 02/16/23 13:19 - Social History Does the pt smoke?: No Smoking Status: Never smoker Does the pt drink ETOH?: No Does the pt have substance abuse?: No - Immunizations Immunizations are current?: Yes - POLST Patient has POLST: No PD ED PE NORMAL - General General: Alert and oriented X 3, No acute distress, Well developed/nourished - HEENT HEENT: Atraumatic, Moist mucous membranes, Pharynx benign - Neck Neck: Supple, no meningeal sign - Cardiac Cardiac: RRR, No murmur - Respiratory Respiratory: No respiratory distress, Clear bilaterally - Abdomen Abdomen: Normal bowel sounds, Soft, Non distended, Other (Mild epigastric tenderness to palpation) - Derm Derm: Warm and dry - Neuro Neuro: Normal speech Results - Vitals Vitals: Vital Signs - 24 hr 05/22/23 05/22/23 05/22/23 07:51 09:54 11:00 Temperature 37.2 C Heart Rate 60 56 L 104 H Respiratory 15 16 17 Rate Blood Pressure 110/72 103/68 110/78 O2 Saturation 100 100 99 Oxygen O2 Source Room air - Labs Labs: Laboratory Tests 05/22/23 05/22/23 05/22/23 08:08 08:08 08:18 WBC 6.2 RBC 4.59 Hgb 13.9 Hct 41.8 MCV 91.1 MCH 30.3 MCHC 33.3 RDW 12.6 Plt Count 348 MPV 10.3 Neut # (Auto) 3.8 Lymph # (Auto) 1.6 [place] # (Auto) 0.5 Eos # (Auto) 0.2 Baso # (Auto) 0.1 Absolute Nucleated RBC 0.00 Nucleated RBC % 0.0 Sodium 137 Potassium 4.3 Chloride 106 Carbon Dioxide 27 Anion Gap 4.0 L BUN 15 Creatinine 0.8 Estimated GFR (MDRD) 91 Glucose 89 Calcium 9.1 Total Bilirubin 0.6 AST 12 ALT 9 L Alkaline Phosphatase 74 Total Protein 6.7 Albumin 4.4 Globulin 2.3 Albumin/Globulin Ratio 1.9 Lipase 26 Urine Color YELLOW Urine Clarity CLEAR Urine pH 6.0 Ur Specific [place] 1.020 Urine Protein NEGATIVE Urine Glucose (UA) NEGATIVE Urine Ketones NEGATIVE Urine Occult Blood NEGATIVE Urine Nitrite NEGATIVE Urine Bilirubin NEGATIVE Urine Urobilinogen 0.2 (NORMAL) Ur Leukocyte Esterase NEGATIVE Ur Microscopic Review NOT INDICATED Urine Culture Comments NOT INDICATED Urine HCG, Qual NEGATIVE PD Medical Decision Making - ED course Complexity details: reviewed results, re-evaluated patient, d/w patient ED course: Patient is a 22-year-old female presenting for evaluation of epigastric abdominal pain. She is scheduled for upper endoscopy later this month. CBC, chemistries were obtained and reviewed. She does have a history of pancreatitis but labs are reassuring today. Urine is negative for infection or . She does report feeling better after a small dose of Dilaudid as well as Zofran and fluids. She does report having a burning sensation in her throat which was relieved with a GI cocktail. She did report some discomfort in her back but her abdominal exam remained benign and was given oxycodone for this with improvement. We discussed imaging but patient would prefer to hold off as it has not been revealing in the past and she is scheduled for an upper endoscopy coming up.I repeated her abdominal exam several times and it has been benign. She states that her GI doctor took her off of acid reducing medications in the past as they were starting a medication for IBS.We discussed avoiding certain foods that may trigger her pain.Patient is counseled on treatment plan as well as concerning symptoms to return for. 0900 - Repeat abdominal exam is benign. Patient reports having a burpy burning sensation in the back of her throat. Understands plan to trial a GI cocktail. Departure - Departure Disposition: 01 Home, Self Care Clinical Impression: Epigastric abdominal pain Condition: Stable Instructions: ED Epigastric Pain [facility] Prescriptions: oxyCODONE [Roxicodone] 5 mg PO Q6H PRN #12 tablet PRN Reason: Pain Comments: Your labs are reassuring today with no signs of inflammation to your pancreas, liver. Your white count is normal and your urine is also clear. Your symptoms have improved with pain and nausea medications and at this time we have agreed to hold off on imaging. I would recommend close follow-up with your primary care provider and GI doctor. Our prescriptions are not sending electronically at this time so I printed a narcotic prescription for you to take with you today. I would also recommend avoiding anything spicy, acidic or citrusy as this may irritate your stomach. Please return to the ER if you develop any worsening symptoms. Forms: PCP List Discharge Date/Time: 05/22/23 11:32
[2023-05-22] MEDS ORDERED: LIDOCAINE VISCOUS 2% 15 ML UDC MM STA (09:10)
[2023-05-22] MEDS ORDERED: oxyCODONE 5 MG TABLET PO STA (09:48)
[2023-05-22] MEDS ORDERED: ONDANSETRON ODT 4 MG TABLET TL STA (10:22)
[2023-05-22 11:14] VITALS: BP 110/78; O2SAT 99
== END 2023-05-22 11:32 | disposition home or self-care (01) ==
LOC: ED 07:33
DX: R10.13 Epigastric pain (principal)
CPT/HCPCS: 36415; 80053; 81003; 81025; 83690; 85025; 96374; 96375; 99283; A9270; J1170; Q0162; 81001; 87086

== ENCOUNTER 2023-06-12 12:01 | Emergency (ER) | payer OTHER ==
[2023-06-12] MEDS ORDERED: SODIUM CHLORIDE 0.9% 1,000 ML IV STA (12:27)
[2023-06-12 12:37] LABS: BASOPHILS % (AUTO) 0.3 %; EOSINOPHILS # (AUTO) 0.1 10^3/uL (0.0-0.7); EOSINOPHILS % (AUTO) 1.6 %; HCT - HEMATOCRIT 44.3 % (37.0-47.0); HGB - HEMOGLOBIN 14.7 g/dL (12.0-16.0); MEAN CORPUSCULAR HEMOGLOBIN 29.9 pg (27.0-31.0); MEAN CORPUSCULAR HGB CONC 33.2 g/dL (32.0-36.0); MEAN CORPUSCULAR VOLUME 90.2 fL (81.0-99.0); MEAN PLATELET VOLUME 9.8 fL (7.9-10.8); MONOCYTES # (AUTO) 0.6 10^3/uL (0.0-1.0); MONOCYTES % (AUTO) 9.5 %; NEUTROPHILS # (AUTO) 4.4 10^3/uL (1.5-6.6); NEUTROPHILS % (AUTO) 72.1 %; PLT - PLATELET COUNT 316 10^3/uL (130-450); RED BLOOD COUNT 4.91 10^6/uL (4.20-5.40); RED CELL DISTRIBUTION WIDTH 12.1 % (12.0-15.0); WHITE BLOOD COUNT 6.1 x10^3/uL (4.8-10.8)
[2023-06-12 12:58] LABS: ALBUMIN 4.4 g/dL (3.2-5.5); ALBUMIN/GLOBULIN RATIO 2.1 (1.0-2.2); BILIRUBIN,TOTAL 0.5 mg/dL (0.2-1.0); CALCIUM 9.4 mg/dL (8.5-10.3); CREATININE 0.8 mg/dL (0.6-1.3); POTASSIUM 3.7 mmol/L (3.5-4.5); TOTAL PROTEIN 6.5 g/dL (6.4-8.9)
[2023-06-12] MEDS ORDERED: ONDANSETRON 4 MG/2 ML VIAL IVP STA (13:56)
[2023-06-12] MEDS ORDERED: KETOROLAC 30 MG/ML VIAL IVP STA (14:04)
--- NOTE | 2023-06-12 14:27 | ED Physician Documentation ---
PD HPI NVD - Stated complaint Stated Complaint: N/V/D - Chief complaint Chief Complaint: Abd Pain - History obtained from History obtained from: Patient - Additonal information Additional information: Patient is a 22-year-old female with prior visits with GI symptoms presenting for evaluation of nausea, vomiting and diarrhea since yesterday. Patient reports multiple loose stools with no blood. She also reports not able to keep any oral intake down and vomiting up food. She denies eating anything that would have irritated her stomach and her is at the bedside who is also had a similar diet without any symptoms. She has not been on recent antibiotics. She has had a recent upper endoscopy as well as a colonoscopy. Results were reviewed by me on her phone and there were some findings of a Ceanel [place] esophagitis. She does report some mild upper abdominal pain. She is not currently on any medications for GI symptoms. She does have Zofran at home but did not try it prior to arrival. She reports generalized back achiness. No recent travel. Review of Systems Constitutional: denies: Fever Cardiac: denies: Chest pain / pressure Respiratory: denies: Dyspnea GI: reports: Abdominal Pain, Nausea, Vomiting, Diarrhea. denies: Bloody / black stool : denies: Dysuria Neurologic: reports: Headache PD PAST MEDICAL HISTORY - Past Medical History Past Medical History: Yes Cardiovascular: None Respiratory: None Neuro: None Endocrine/Autoimmune: None GI: Pancreatitis [employer]: Ovarian cysts, Other : None HEENT: None Psych: Depression Musculoskeletal: None Derm: None - Past Surgical History Past Surgical History: Yes General: Other Ortho: ACL reconstruction /[employer]: Oophrectomy, Other - Present Medications Home Medications: Ambulatory Orders Medication Instructions Recorded Confirmed Promethazine [Phenergan] 25 mg PO Q6H PRN #10 tablet 06/12/23 - Allergies Allergies/Adverse Reactions: Allergies Allergy/AdvReac Type Severity Reaction Status Date / Time amoxicillin Allergy Rash Verified 05/22/23 07:54 doxycycline Allergy Unknown Verified 02/16/23 13:19 lactose Allergy Unknown Verified 02/16/23 13:19 morphine Allergy Unknown Verified 02/16/23 13:19 Morpholine Analogues Allergy Hives Verified 02/16/23 13:19 diphenhydramine AdvReac Anxiety Verified 06/12/23 12:14 [From Benadryl] Dairy Allergy Unknown Uncoded 02/16/23 13:19 - Social History Does the pt smoke?: No Smoking Status: Never smoker Does the pt drink ETOH?: No Does the pt have substance abuse?: No - Immunizations Immunizations are current?: Yes - POLST Patient has POLST: No PD ED PE NORMAL - General General: Alert and oriented X 3, No acute distress, Well developed/nourished - HEENT HEENT: Atraumatic, Moist mucous membranes, Pharynx benign - Neck Neck: Supple, no meningeal sign - Cardiac Cardiac: RRR, No murmur - Respiratory Respiratory: No respiratory distress, Clear bilaterally - Abdomen Abdomen: Normal bowel sounds, Soft, Non distended, Other (Mild epigastric tenderness) - Derm Derm: Warm and dry - Neuro Neuro: Normal speech Results - Vitals Vitals: Vital Signs - 24 hr 06/12/23 06/12/23 06/12/23 12:10 12:14 14:14 Temperature 37.3 C 37.3 C 37.0 C Heart Rate 73 73 72 Respiratory 15 15 16 Rate Blood Pressure 110/71 110/71 112/70 O2 Saturation 99 99 98 06/12/23 16:00 Temperature 37.0 C Heart Rate 70 Respiratory 16 Rate Blood Pressure 114/68 O2 Saturation 100 Oxygen O2 Source Room air - Labs Labs: Laboratory Tests 06/12/23 06/12/23 06/12/23 12:33 12:33 14:40 WBC 6.1 RBC 4.91 Hgb 14.7 Hct 44.3 MCV 90.2 MCH 29.9 MCHC 33.2 RDW 12.1 Plt Count 316 MPV 9.8 Neut # (Auto) 4.4 Lymph # (Auto) 1.0 L Branch # (Auto) 0.6 Eos # (Auto) 0.1 Baso # (Auto) 0.0 Absolute Nucleated RBC 0.00 Nucleated RBC % 0.0 Sodium 137 Potassium 3.7 Chloride 102 Carbon Dioxide 28 Anion Gap 7.0 BUN 15 Creatinine 0.8 Estimated GFR (MDRD) 91 Glucose 81 Calcium 9.4 Total Bilirubin 0.5 AST 14 ALT 13 Alkaline Phosphatase 92 Total Protein 6.5 Albumin 4.4 Globulin 2.1 Albumin/Globulin Ratio 2.1 Lipase 15 Urine Color YELLOW Urine Clarity CLEAR Urine pH 6.0 Ur Specific [place] 1.025 Urine Protein NEGATIVE Urine Glucose (UA) NEGATIVE Urine Ketones 40 H Urine Occult Blood NEGATIVE Urine Nitrite NEGATIVE Urine Bilirubin NEGATIVE Urine Urobilinogen 0.2 (NORMAL) Ur Leukocyte Esterase NEGATIVE Ur Microscopic Review NOT INDICATED Urine Culture Comments NOT INDICATED Urine HCG, Qual NEGATIVE PD Medical Decision Making - ED course Complexity details: reviewed results, re-evaluated patient, d/w patient, d/w family ED course: Patient is a 22-year-old female presenting for evaluation of nausea, vomiting and diarrhea for the past 2 days. Has had had prior GI symptoms and is currently following with GI with recent EGD and colonoscopy. There were some findings on her EGD of eosinophilic esophagitis. She is not currently on any medications. She has not had any vomiting or diarrhea here. Her abdominal exam is benign. Labs reviewed including CBC, chemistries and urinalysis without any significant findings. Benign exam as well as normal labs I do not think emergent imaging is indicated at this time. She was given IV Zofran and Toradol with some improvement but continued report ongoing nausea and epigastric pain. She had complete improvement with Phenergan and GI cocktail. Prescription for Phenergan was also provided to the patient. She is counseled on need for close follow-up as well as concerning symptoms to return for. Departure - Departure Disposition: Home, Self Care Clinical Impression: Nausea vomiting and diarrhea Condition: Stable Instructions: ED Diet Vomiting Diarrhea Prescriptions: Promethazine [Phenergan] 25 mg PO Q6H PRN #10 tablet PRN Reason: Nausea / Vomiting Comments: I have sent a prescription for promethazine which is another antinausea medication to [facility] in [place]. Please try this or utilize your Zofran at home if you have any continued nausea or vomiting. It is important to stay hydrated. We were not able to collect any stool for specimen today but if you continue to have diarrhea I would recommend close follow-up with your primary care provider. If you develop worsening symptoms such as fever or increased pain then please consider return to the emergency department for reevaluation. Forms: PCP List Discharge Date/Time: 06/12/23 16:52
[2023-06-12 14:50] LABS: GLUCOSE, URINE (UA) NEGATIVE (NEGATIVE); KETONES,URINE (UA) 40 mg/dL (NEGATIVE); LEUKOCYTE ESTERASE, URINE NEGATIVE (NEGATIVE); NITRITE,URINE NEGATIVE (NEGATIVE); OCCULT BLOOD,URINE NEGATIVE (NEGATIVE); PROTEIN,URINE NEGATIVE (NEGATIVE); UROBILINOGEN,URINE 0.2 (NORMAL) E.U./dL (NORMAL)
[2023-06-12 14:52] LABS: HCG UR QUAL NEGATIVE
[2023-06-12 14:54] LABS: BILIRUBIN,URINE NEGATIVE (NEGATIVE); CLARITY,URINE CLEAR (CLEAR); ICTOTEST,URINE NEGATIVE
[2023-06-12] MEDS: ONDANSETRON 4 MG/2 ML VIAL IVP STA ×2 (15:56→15:58)
[2023-06-12] MEDS ORDERED: MAG HYDROX/AL HYDROX/SIMETH 30 ML UDC PO STA (16:01)
[2023-06-12] MEDS ORDERED: PROMETHAZINE INJ 25 MG in SODIUM CHLORIDE 0.9% 50 ML IV STA (16:01)
[2023-06-12] MEDS ORDERED: LIDOCAINE VISCOUS 2% 15 ML UDC MM STA (16:01)
[2023-06-12 16:23] VITALS: BP 114/68; O2SAT 100
== END 2023-06-12 16:52 | disposition home or self-care (01) ==
LOC: ED 12:01
DX: R11.2 Nausea with vomiting, unspecified (principal); R19.7 Diarrhea, unspecified; R10.13 Epigastric pain
CPT/HCPCS: 36415; 80053; 81003; 81025; 83690; 85025; 96365; 96375; 99284; A9270; J7040; 81001; 87086

== ENCOUNTER 2023-08-01 13:31 | Outpatient (CLI) | payer OTHER | END 2023-08-01 13:32 | disposition home or self-care (01) | LOC: LAB.N 13:31 | PROVIDERS: ATTEND Allergy & Immunology | DX: R10.13 Epigastric pain (principal); J30.9 Allergic rhinitis, unspecified | CPT/HCPCS: 81599; 82785 ==

== ENCOUNTER 2023-08-04 11:17 | Outpatient (CLI) | payer OTHER ==
[2023-08-04 11:30] LABS: BASOPHILS # (AUTO) 0.1 10^3/uL (0.0-0.1); BASOPHILS % (AUTO) 0.9 %; EOSINOPHILS # (AUTO) 0.3 10^3/uL (0.0-0.7); EOSINOPHILS % (AUTO) 5.1 %; HCT - HEMATOCRIT 41.6 % (37.0-47.0); HGB - HEMOGLOBIN 13.4 g/dL (12.0-16.0); LYMPHOCYTES # (AUTO) 1.9 10^3/uL (1.5-3.5); LYMPHOCYTES % (AUTO) 36.7 %; MEAN CORPUSCULAR HEMOGLOBIN 28.9 pg (27.0-31.0); MEAN CORPUSCULAR HGB CONC 32.2 g/dL (32.0-36.0); MEAN CORPUSCULAR VOLUME 89.8 fL (81.0-99.0); MEAN PLATELET VOLUME 9.7 fL (7.9-10.8); MONOCYTES # (AUTO) 0.3 10^3/uL (0.0-1.0); NEUTROPHILS # (AUTO) 2.7 10^3/uL (1.5-6.6); NEUTROPHILS % (AUTO) 51.1 %; PLT - PLATELET COUNT 352 10^3/uL (130-450); RED BLOOD COUNT 4.63 10^6/uL (4.20-5.40); RED CELL DISTRIBUTION WIDTH 12.9 % (12.0-15.0); WHITE BLOOD COUNT 5.3 x10^3/uL (4.8-10.8)
== END 2023-08-04 11:18 | disposition home or self-care (01) ==
LOC: LAB 11:17
PROVIDERS: ATTEND Allergy & Immunology
DX: R10.13 Epigastric pain (principal); J30.9 Allergic rhinitis, unspecified
CPT/HCPCS: 36415; 85025